=== PATIENT | female | born 1975 | race American Indian/Alaskan Native ===

== ENCOUNTER 2017-02-28 12:19 | Observation (INO) ==
[2017-02-28] MEDS ORDERED: 0.9 % SODIUM CHLORIDE 1,000 ML IV ONE ×2 (12:33→16:01)
[2017-02-28] MEDS ORDERED: PROCHLORPERAZINE 10 MG/2 ML VIAL IV ONE (12:34)
--- NOTE | 2017-02-28 12:37 | Emergency Department Note ---
[id number]: nausea, stomach pain Time Seen by Provider: 02/28/17 12:27 Mode of arrival: ambulatory - History of Present Illness HPI Narrative: 41 year old female presents with nausea, vomiting and abdominal pain. She has not been able to keep anything down since last night. She is type 2 diabetic and her blood sugars are running "high" on her monitor at home. She has taken 45 units of Lantus today and 14 units of regular insulin. She has had pancreatitis once. No urinary symptoms. She has not been sick. She was feeling well until yesterday. The only blood sugar she could get was 500 - Related Data Home Medications Medication Instructions Recorded Confirmed Cyclobenzaprine HCl 2 mg PO BID 02/08/17 02/08/17 Gabapentin 600 mg PO QIDP 02/08/17 02/08/17 Insulin Aspart [Novolog] See Protocol SQ ACHS 02/08/17 02/08/17 Insulin Glargine,Hum.rec.anlog 45 unit SQ BID 02/08/17 02/08/17 [Lantus Solostar] traMADol [Ultram] 50 mg PO Q6HP PRN 02/08/17 02/08/17 Allergies Allergy/AdvReac Type Severity Reaction Status Date / Time ketorolac [From Toradol] AdvReac Intermediate Vomiting Verified 02/08/17 11:08 metoclopramide [From Reglan] AdvReac Intermediate Shakiness Verified 02/08/17 11 :08 morphine AdvReac Intermediate Headache Verified 02/08/17 11:08 NSAIDS (Non-Steroidal AdvReac Intermediate Vomiting Verified 02/08/17 11:08 Anti-Inflamma promethazine [From Phenergan] AdvReac Intermediate Shakiness Verified 02/08/17 11:08 Review of Systems All systems ED: reviewed and negative except as stated. Past Medical History - Past Medical History Medical history: Reports: diabetes, other (History of wounds, flores, injuries, migraines. MRSA) Surgical history ED: Reports: non-contributory, hysterectomy Psychiatric history: Reports: depression, prior suicide attempt HAND II TUBE BENDER history: Reports: non-contributory Family history: Reports: non-contributory - Social History smoking status: Never smoker Alcohol use: Reports: Unknown Physical Exam - General Limitations: no limitations General appearance: alert, in no apparent distress - Head Head exam: atraumatic - Eye Eye exam: Present: normal appearance. Absent: conjunctival injection - Neck Neck exam: Present: normal inspection, full ROM. Absent: tenderness, lymphadenopathy - Chest Chest inspection: Present: normal inspection, symmetric chest wall rise - Respiratory Respiratory exam: Present: normal lung sounds bilaterally - Cardiovascular Cardiovascular exam: Present: tachycardia, normal heart sounds - Abdominal Exam Abdominal exam: Present: soft, tenderness, guarding, normal bowel sounds. Absent: psoas sign, heel tap sign Abdominal tenderness: Present: RUQ, LUQ, epigastrium - Extremities Exam Extremities exam: Present: normal inspection, full ROM - Neurological Exam Neurological exam: Present: alert, oriented X3 - Psychiatric Psychiatric exam: Present: normal affect, normal mood - Skin Skin exam: Present: warm, dry, intact Course Course Narrative: Urine dip shows positive Nitrates and blood - Reevaluation(s) Reevaluation #1: Started on IV insulin drip. Dr. Clemente and Tammy consulted on this patient. She will be admitted Vital Signs Temperature 97.3 F L 02/28/17 12:20 Respiratory Rate 16 02/28/17 12:20 Blood Pressure 139/86 02/28/17 12:20 Pulse Oximetry (%) 100 02/28/17 12:20 Temperature 97.3 F L 02/28/17 12:20 Pulse Rate 100 H 02/28/17 15:24 Respiratory Rate 14 02/28/17 15:24 Blood Pressure 134/99 02/28/17 15:01 Pulse Oximetry (%) 99 02/28/17 15:24 Nausea/Vomiting/Diarrhea - Lab Data Lab results reviewed: Yes I reviewed the patient's lab results. Result diagrams: 02/28/17 12:46 02/28/17 12:46 Lab Results 02/28/17 02/28/17 02/28/17 Range/Units 12:46 12:46 12:46 WBC 10.9 (4.5-11.0) K/mcL RBC 4.61 (4.00-5.20) M/mcL Hgb 14.2 (12.0-15.0) g/dL Hct 42.0 (36.0-48.0) % POC Hct 44.0 (36.0-48.0) % MCV 91.1 (80.0-100.0) fL MCH 30.8 (26.0-34.0) pg MCHC 33.9 (31.0-36.0) g/dL RDW 12.6 (11.5-14.5) % Plt Count 333 (140-440) K/mcL MPV 7.1 L (7.4-10.4) fL Total Counted 100 Seg Neutrophils % 68 (38-78) % Band Neutrophils % Not Reportable Lymphocytes % 28 (15-49) % Monocytes % (Manual) 2 (1-12) % Eosinophils % (Manual) 2 (0-7) % Platelet Estimate Normal (NORMAL) RBC Morphology Normal (NORMAL) VBG Lactic Acid 2.4 H (0.5-2.2) mmol/L POC Sodium 131 L (133-145) mmol/L Sodium 128 L (133-145) mmol/L POC Potassium 4.1 (3.3-5.1) mmol/L Potassium 4.3 (3.3-5.1) mmol/L POC Chloride 94 L (96-108) mmol/L Chloride 89 L (96-108) mmol/L Carbon Dioxide 21 L (22-30) mmol/L POC Total CO2 21 L (22-30) mmol/L Anion Gap 18.0 H (8-16) POC BUN 13 (6-20) mg/dl BUN 13 (6-20) mg/dl Creatinine 1.0 (0.6-1.1) mg/dl POC Creatinine 0.7 (0.6-1.1) mg/dl GFR Calculation 70 Glucose 795 H* (70-105) mg/dL POC Glucose > 700 H* (70-105) mg/dL Hemoglobin A1c (4.0-6.0) % HGB Estim Average Glucose mg/dL Calcium 9.7 (8.6-10.4) mg/dl POC WB Ioniz Calcium 1.08 L (1.16-1.32) mmol/L Total Bilirubin 0.2 (0.0-1.0) mg/dL AST 16 (0-37) U/l ALT 23 (0-40) U/l Alkaline Phosphatase 245 H (39-117) U/L Total Protein 8.5 H (5.9-8.4) gm/dL Albumin 4.4 (3.2-5.2) gm/dL Globulin 4.1 H (2.2-3.7) gm/dL Albumin/Globulin Ratio 1.1 (1.0-2.3) Amylase 98 (28-100) U/L Lipase 194 H (7-60) U/L Beta-Hydroxybutyrate (< 0.27) mmol/L 02/28/17 02/28/17 Range/Units 12:46 12:46 WBC (4.5-11.0) K/mcL RBC (4.00-5.20) M/mcL Hgb (12.0-15.0) g/dL Hct (36.0-48.0) % POC Hct (36.0-48.0) % MCV (80.0-100.0) fL MCH (26.0-34.0) pg MCHC (31.0-36.0) g/dL RDW (11.5-14.5) % Plt Count (140-440) K/mcL MPV (7.4-10.4) fL Total Counted Seg Neutrophils % (38-78) % Band Neutrophils % Lymphocytes % (15-49) % Monocytes % (Manual) (1-12) % Eosinophils % (Manual) (0-7) % Platelet Estimate (NORMAL) RBC Morphology (NORMAL) VBG Lactic Acid (0.5-2.2) mmol/L POC Sodium (133-145) mmol/L Sodium (133-145) mmol/L POC Potassium (3.3-5.1) mmol/L Potassium (3.3-5.1) mmol/L POC Chloride (96-108) mmol/L Chloride (96-108) mmol/L Carbon Dioxide (22-30) mmol/L POC Total CO2 (22-30) mmol/L Anion Gap (8-16) POC BUN (6-20) mg/dl BUN (6-20) mg/dl Creatinine (0.6-1.1) mg/dl POC Creatinine (0.6-1.1) mg/dl GFR Calculation Glucose (70-105) mg/dL POC Glucose (70-105) mg/dL Hemoglobin A1c 11.4 H (4.0-6.0) % HGB Estim Average Glucose 280 mg/dL Calcium (8.6-10.4) mg/dl POC WB Ioniz Calcium (1.16-1.32) mmol/L Total Bilirubin (0.0-1.0) mg/dL AST (0-37) U/l ALT (0-40) U/l Alkaline Phosphatase (39-117) U/L Total Protein (5.9-8.4) gm/dL Albumin (3.2-5.2) gm/dL Globulin (2.2-3.7) gm/dL Albumin/Globulin Ratio (1.0-2.3) Amylase (28-100) U/L Lipase (7-60) U/L Beta-Hydroxybutyrate 0.19 (< 0.27) mmol/L - Radiology Data Radiology results reviewed: Yes I reviewed the patient's radiology results. No pancreatitis. Bladder distention Disposition Clinical Impression: Hyperosmolar non-ketotic state in patient with type 2 diabetes mellitus Disposition: Xfer As Inpt ([facility]) Condition: Fair
[2017-02-28] MEDS ORDERED: HYDROmorphone 2 MG/ML SYRINGE IV SCH ×2 (12:45→14:15)
[2017-02-28 13:16] LABS: Mean Cell Volume 91.1 fL (80.0-100.0); Mean Corpuscular HGB Conc 33.9 g/dL (31.0-36.0); Mean Corpuscular Hemoglobin 30.8 pg (26.0-34.0); Platelet Count 333 K/mcL (140-440); RBC 4.61 M/mcL (4.00-5.20); Red Cell Distribution Width 12.6 % (11.5-14.5)
[2017-02-28 13:43] LABS: ALT/SGPT 23 U/l (0-40); Albumin 4.4 gm/dL (3.2-5.2); Albumin/Globulin Ratio 1.1 (1.0-2.3); Alkaline Phosphatase 245 U/L (39-117); Amylase 98 U/L (28-100); Blood Urea Nitrogen 13 mg/dl (6-20); Lipase 194 U/L (7-60)
[2017-02-28] MEDS ORDERED: INSULIN REGULAR, HUMAN 50 UNIT in 0.9 % SODIUM CHLORIDE 99.5 ML IV SCH ×2 (14:15→16:46)
[2017-02-28] MEDS ORDERED: INSULIN REGULAR, HUMAN 1 UNIT/0.01 ML UNIT IV ONE (14:18)
[2017-02-28 14:22] LABS: Eosinophils % (Manual) 2 % (0-7); Lymphocytes % 28 % (15-49); Monocytes % (Manual) 2 % (1-12); Platelet Estimate NORMAL (NORMAL); RBC Morphology NORMAL (NORMAL); Segmented Neutrophils % 68 % (38-78)
--- NOTE | 2017-02-28 14:38 | XRay Report ---
CLINICAL INFORMATION: Nausea and vomiting. Elevated lactic acid TECHNIQUE: PA and lateral chest x-ray COMPARISON: 03/09/2013 and 01/30/2009 FINDINGS: Lungs are negative. No focal pulmonary parenchymal infiltrate or mass. Heart size and vascularity are normal. No pulmonary edema or pulmonary congestion. Viviana and mediastinum are negative. No pleural fluid. Normal thoracic spine. IMPRESSION: Negative PA and lateral chest x-ray Interpreted and Authenticated by: Jeremy Figueredo 02/28/17
[2017-02-28] MEDS ORDERED: ONDANSETRON 4 MG/2 ML VIAL IV ONE (14:39)
--- NOTE | 2017-02-28 14:59 | Cat Scan Report ---
CLINICAL INFORMATION: Epigastric pain. Elevated liver function tests. COMPARISON: Previous CT scan dated 05/11/2016 TECHNIQUE: Axial images were obtained through the abdomen and pelvis. Sagittally and coronally reformatted images. FINDINGS: Lung bases are negative. No pleural fluid. No pericardial fluid. Liver is negative. No focal intrahepatic abnormalities. Intravenous contrast material was not administered. Liver contour is smooth. No nodularity. No ascitic fluid. There are surgical clips in the gallbladder fossa. No dilated bile ducts. Negative pancreas. No pancreatic mass. No peripancreatic abnormality. Negative spleen. No splenomegaly. Previous examination demonstrated a right hydronephrosis. No wall significant hydronephrosis on present examination. No renal calculi. No detectable mass. Urinary bladder is distended. Estimated volume is approximately 900 mL. No detectable mass. No calculus. Uterus is not identified. No adnexal mass. No free pelvic fluid. No localized fluid collections. No pneumoperitoneum. No biliary or portal venous gas. Colon is prominent suggesting constipation. No diverticulitis. No appendicitis. No detectable colonic mass. No mechanical small bowel obstruction. No mesenteric or retroperitoneal lymphadenopathy. Lumbar spine is negative. Sacrum and pelvis are negative. IMPRESSION: 1. No significant hydronephrosis. Appearance of the right kidney is improved since 05/11/2016 2. Distended urinary bladder as above. Interpreted and Authenticated by: Jeremy Figueredo 02/28/17
[2017-02-28 15:35] LABS: Hemoglobin A1C 11.4 % HGB (4.0-6.0)
[2017-02-28] MEDS ORDERED: cefTRIAXone 2 GM in DEXTROSE 5% IN WATER 50 ML IV ONE (15:42)
[2017-02-28 16:38] LABS: Appearance,Urine CLEAR; Bacteria,Urine 0 /hpf (0); Bilirubin,Urine NEG (NEG); Color,Urine YELLOW; Glucose,Urine (UA) >=500 mg/dL (NEG); Leukocyte Esterase,Urine NEG /uL (NEG); Mucus,Urine FEW /hpf (0); Nitrate,Urine POS (NEG); Protein,Urine NEG (NEG); Specific Gravity,Urine 1.027 (1.000-1.035); Urine Blood NEG mg/dL (<0.03); Urine RBC 0 /hpf (0-1); Urine Squamous Epithelial Cell 0 /hpf (0-4); Urine WBC 4 /hpf (0-4); Urobilinogen,Urine NEG (NEG)
[2017-02-28] MEDS ORDERED: guaiFENesin/CODEINE 10 ML UDC PO PRN (16:46)
[2017-02-28] MEDS ORDERED: ACETAMINOPHEN 325 MG TABLET PO PRN (16:46)
[2017-02-28] MEDS ORDERED: ACETAMINOPHEN 1,000 MG/100 ML BOTTLE IV PRN (16:46)
[2017-02-28] MEDS ORDERED: ONDANSETRON 4 MG/2 ML VIAL IV PRN (16:46)
[2017-02-28] MEDS: 0.9 % SODIUM CHLORIDE 1,000 ML IV SCH (16:57)
[2017-02-28] MEDS ORDERED: PANTOPRAZOLE 40 MG VIAL IV ONE (17:07)
[2017-02-28 17:16] LABS: C-Reactive Protein 1.1 mg/dl (0.0-0.8)
[2017-02-28] MEDS: THIAMINE 100 MG TABLET PO SCH (19:14)
[2017-02-28] MEDS: 0.9 % SODIUM CHLORIDE 10 ML SYRINGE IV SCH ×2 (19:16→20:55)
[2017-02-28] MEDS: HYDROmorphone 2 MG/ML SYRINGE IV PRN ×2 (19:16→23:10)
--- NOTE | 2017-02-28 19:38 | History and Physical Report ---
DATE OF ADMISSION: 02/28/2017 DATE OF ADMISSION: 02/28/2017. REASON FOR ADMISSION: Nausea, vomiting, and abdominal pain. PRIMARY CARE PHYSICIAN: Luz Elena Dejesus DO HISTORY OF CHIEF COMPLAINT: Jeanette is a 41-year-old with known history of type 2 diabetes with extremely poor control with last A1c 15. She comes to [facility] Room with persistent nausea and vomiting that started around 8:00 in the evening along with associated diarrhea. The patient has been having dry heaves after initial volume emesis composed of mostly food. The patient denies recurrent similar events. She has not been able to keep anything down since last night and subsequently came to [facility] Room. Initial workup was significant for blood sugars over 700. The patient will be started on insulin drip along with crystalloids, antiemetics. White count was 11,600. Subsequently, Hospitalist Service was consulted. At the time of examination, the patient is accompanied with her boyfriend, Ariel. She was able to provide most of the history. She appears nondistressed. She denies recent precedents including sick contacts, community feast, changes in medications or recent upper respiratory symptoms. She also denies dysuria. She endorses to couple of loose stools a day without any noticeable blood or cramps. REVIEW OF SYSTEMS: Ten-point review of system was performed and negative except the ones discussed above. PAST MEDICAL HISTORY: 1. History of diabetic neuropathy. 2. Diabetes mellitus type 2. 3. Degenerative joint disease. CURRENT MEDICATIONS: 1. Tramadol 50 q. 6. 2. Lantus 45 b.i.d. 3. Aspart sliding scale. 4. Gabapentin 600 q.i.d. 5. Cyclobenzaprine 2 mg b.i.d. ALLERGIES: 1. KETOROLAC. 2. REGLAN. 3. NSAIDS. 4. PROMETHAZINE. FAMILY HISTORY: Significant for mother with diabetes and coronary artery disease. Father significant for alcoholism, of complications. SOCIAL HISTORY: The patient until recently used to live in [place] with two daughters. She has a boyfriend, Ariel. She smokes daily but no history of alcoholism or illicit drug use. 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 PHYSICAL EXAMINATION: GENERAL: The patient is alert and oriented. She denies any active distress. BMI 24.3. Height 5 feet 8 inches. VITAL SIGNS: Blood pressure 148/112, respiratory rate 20, temperature 97.3, pulse 104, sats 99 percent on room air. HEENT: Pupils symmetric. Oral cavity is dry. No ear or nose discharge. Head is normocephalic and atraumatic. NECK: No lymphadenopathy. HEART: S1, S2, irregular rhythm, no murmur, tachycardia. CHEST: Clear to auscultation bilaterally, lateral and posterior chest lung [place]. ABDOMEN: Soft except for mild tenderness in epigastric area on deep palpation. No organomegaly. LOWER EXTREMITIES: No cyanosis or clubbing. No joint swelling. Neuropathic changes with loss of crude touch but no lymphedema. SKIN: Otherwise, no suspicious lesions. PSYCHIATRIC: Alert and cooperative. Mild anxiety. NEUROLOGIC: Nonfocal, moving all 4 extremities. Neuropathic changes in glove and stocking fashion. LABORATORY AND IMAGING: White count 10.9, hemoglobin 14.2, platelets 333. Lactic acid 2.4, sodium 131, potassium 4.1, creatinine 1, BUN 13, glucose 795. Last A1c 15. Current A1c 11.4, CRP pending. Alkaline phosphatase 245, lipase 194, __ 0.19. UA positive for nitrites. No bacteria. ASSESSMENT AND PLAN: A 41-year-old admitted with nausea, vomiting, abdominal pain and likely acute gastroenteritis, unclear etiology. 1. Acute gastroenteritis. Continue IV Protonix twice daily along with bowel rest, antiemetics, analgesics. 2. Hyperglycemic hyperosmolar nonketotic state. Continue insulin drip along with crystalloids. Poorly controlled diabetes as an outpatient reflective as evident from an A1c of 11.4. The patient does not have a primary care physician at this time and has moved from [place] to [place]. Patient is in the process of establishing care with primary care physician. At this time, we will start patient on diabetic education along with carbohydrate diet once blood sugars improve. 3. Other prior medical issues including history of neuropathy. Continue gabapentin. 4. Chronic pain. Continued as-needed opioids. PLAN FOR TODAY: 1. Admit as observation. 2. Insulin drip. 3. IV PPI. 4. Pain management. 5. Preexisting medical condition management as above. 6. Diabetic education. AA:ele Job ID: [id number] Doc ID: [id number] Raman Reilly MD
[2017-02-28 20:08] LABS: Appearance,Urine HAZY; Bacteria,Urine 0 /hpf (0); Bilirubin,Urine NEG (NEG); Color,Urine YELLOW; Glucose,Urine (UA) >=500 mg/dL (NEG); Leukocyte Esterase,Urine 75 /uL (NEG); Mucus,Urine FEW /hpf (0); Nitrate,Urine POS (NEG); Protein,Urine NEG (NEG); Specific Gravity,Urine 1.029 (1.000-1.035); Urine Blood NEG mg/dL (<0.03); Urine RBC 3 /hpf (0-1); Urine Squamous Epithelial Cell < 1 /hpf (0-4); Urine WBC 162 /hpf (0-4); Urobilinogen,Urine NEG (NEG)
[2017-02-28] MEDS: DOCUSATE SODIUM 100 MG CAPSULE PO SCH (20:51)
[2017-02-28] MEDS ORDERED: SENNOSIDES/DOCUSATE SODIUM 1 TAB TABLET PO SCH (21:00)
[2017-02-28] MEDS ORDERED: traZODone HCL 50 MG TABLET PO PRN (21:00)
[2017-02-28] MEDS: HEPARIN 5,000 UNIT/ML VIAL SQ SCH (21:07)
[2017-02-28] MEDS: CYANOCOBALAMIN (VITAMIN B-12) 500 MCG TABLET PO SCH (21:08)
[2017-03-01] MEDS: HYDROmorphone 2 MG/ML SYRINGE IV PRN ×3 (02:52→10:29)
[2017-03-01] MEDS: 0.9 % SODIUM CHLORIDE 1,000 ML IV SCH (05:35)
[2017-03-01 06:21] LABS: Mean Cell Volume 91.2 fL (80.0-100.0); Mean Corpuscular HGB Conc 34.6 g/dL (31.0-36.0); Mean Corpuscular Hemoglobin 31.6 pg (26.0-34.0); Platelet Count 266 K/mcL (140-440); RBC 3.83 M/mcL (4.00-5.20); Red Cell Distribution Width 12.7 % (11.5-14.5)
[2017-03-01 06:52] LABS: ALT/SGPT 17 U/l (0-40); Albumin 3.1 gm/dL (3.2-5.2); Albumin/Globulin Ratio 1.1 (1.0-2.3); Alkaline Phosphatase 110 U/L (39-117); Bilirubin,Direct < 0.2 mg/dL (0.0-0.3); Blood Urea Nitrogen 11 mg/dl (6-20); Gamma Glutamyl Transpeptidase 48 U/L (5-36); Magnesium 1.7 mg/dL (1.6-2.5); Uric Acid 4.5 mg/dL (2.5-8.0)
[2017-03-01] MEDS: 0.9 % SODIUM CHLORIDE 10 ML SYRINGE IV SCH (06:59)
[2017-03-01] MEDS: HEPARIN 5,000 UNIT/ML VIAL SQ SCH (07:14)
[2017-03-01] MEDS: DOCUSATE SODIUM 100 MG CAPSULE PO SCH (07:14)
[2017-03-01] MEDS: CYANOCOBALAMIN (VITAMIN B-12) 500 MCG TABLET PO SCH (07:15)
[2017-03-01] MEDS: THIAMINE 100 MG TABLET PO SCH (07:26)
[2017-03-01] MEDS ORDERED: PANTOPRAZOLE 40 MG VIAL IV SCH (07:30)
[2017-03-01 08:03] LABS: Band Neutrophils % 1 % (0-10); Eosinophils % (Manual) 7 % (0-7); Lymphocytes % 44 % (15-49); Monocytes % (Manual) 1 % (1-12); Platelet Estimate NORMAL (NORMAL); RBC Morphology NORMAL (NORMAL); Segmented Neutrophils % 46 % (38-78)
[2017-03-01] MEDS ORDERED: THIAMINE 100 MG in 0.9 % SODIUM CHLORIDE 50 ML IV SCH (09:00)
[2017-03-01] MEDS ORDERED: FOLIC ACID 1 MG TABLET PO SCH (09:00)
[2017-03-01] MEDS ORDERED: PNEUMOCOCCAL 23-VAL P-SAC VAC 0.5 ML VIAL IM ONE (09:00)
[2017-03-01] MEDS ORDERED: MULTIVIT,THER IRON,CA,FA & MIN 1 TABLET PO SCH (09:00)
[2017-03-01] MEDS ORDERED: INSULIN GLARGINE, HUMAN 1 UNIT/0.01 ML SQ SCH (10:30)
--- NOTE | 2017-03-01 11:20 | Internal Med Progress Note ---
Medical - PN: Subj Patient information: Note initiated : 03/01/17 at 11:18 am Service Date, if different from initiated Date: [] Patient: eJanette Anguiano a 41 y/o F admitted on 02/28/17 for nausea, stomach pain. Chief Complaint: [] Interval history: 02/28- patient admitted with acute gastroenteritis nausea vomiting and hyperosmolar nonketotic state with sugars over 700. Started on insulin drip. And admitted to telemetry. Continue aggressive crystalloids, electrolyte monitoring and replacement. Continue bowel rest. Poor outpatient diabetes controlled with last A1c 15 and current A1c 11.9. 03/01- patient doing remarkably better. Off insulin drip. on consistent carbohydrate diet. Feels a lot better. Complains of headache. Patient has had similar headaches in the past responding to opioids and caffeine. Frontal nature. Otherwise no overnight fever chills CP/SOB or nausea. Diarrhea resolved. Possible discharge in 24 hours if clinically continues to improve. - Constitutional Vitals: Vital Signs Temp Pulse Resp BP Pulse Ox 98.0 F 94 H 16 132/80 96 03/01/17 07:43 03/01/17 04:00 03/01/17 07:43 03/01/17 07:43 03/01/17 07:57 Period Temp Pulse Resp BP Sys/Santiago Pulse Ox Last 24 Hr 96.8 F-98.1 F 94-96 16-22 121-154/77-98 96-100 Intake and Output 02/28/17 03/01/17 03/01/17 21:59 05:59 13:59 Intake Total 1203 / 2203 1645 / 1645 9 9 Output Total 1000 / 1000 Balance 1203 / 2203 645 / 645 9 Weight 147 lb 8 oz Intake & Output: Intake & Output 02/28/17 03/01/17 03/01/17 21:59 05:59 13:59 Intake Total 1203 / 2203 1645 / 1645 9 9 Output Total 1000 / 1000 Balance 1203 / 2203 645 / 645 9 / 9 Weight 147 lb 8 oz Intake: IV 1083 / 1083 1045 / 1045 9 / 9 Sodium Chloride 0.9% 1, 1000 / 1000 1000 / 1000 000 ml @ 100 mls/hr IV . Q10H CHRISTINA Rx#:[id number] HumuLIN R 50 UNIT In 33 / 33 45 / 45 9 / 9 Sodium Chloride 0.9% 99.5 ml @ 7.2 UNIT/HR 14.4 mls/hr IV DUR [facility] Rx#: [id number] Rocephin 2 gm In Dextrose 50 / 50 5% in Water 50 ml @ 100 mls/hr IV ONCE ONE Rx#: [id number] Oral 120 / 120 600 / 600 Output: Urine Catheter Amount 1000 / 1000 Other: Meal Dinner Nourishment/Supplement Percent of Meal Consumed 75% 100% Feeding Ability Assist with Tray Set Up Independent General appearance: cooperative, no acute distress Exam: alert oriented no anxiety Nonlabored breathing Medical - PN: Obj Da - Labs CBC & Chem 7: 03/01/17 04:30 03/01/17 04:30 Labs: Abnormal Lab Results 03/01/17 03/01/17 02/28/17 04:30 04:30 19:40 RBC 3.83 L Hct 34.9 L Carbon Dioxide 20 L Glucose 193 H Calcium 8.1 L GGT 48 H Albumin 3.1 L Triglycerides 351 H Urine Glucose (UA) >=500 A Urine Ketones 5/tr A Urine Nitrate Pos A Ur Leukocyte Esterase 75 A Urine RBC 3 H Urine WBC 162 H Meds: Medications Acetaminophen (Tylenol) 650 mg PO Q4-6HP PRN PRN Reason: PAIN/FEVER > 101 Cyanocobalamin (Vitamin B-12) 1,000 mcg PO BID [facility] Stop: 03/05/17 09:01 Last Admin: 03/01/17 07:15 Dose: 1,000 mcg Diagnostic Test (Pha) (Accu-Chek) 1 each FS ACHS [facility] Last Admin: 03/01/17 11:13 Dose: 1 each Docusate Sodium (Colace) 100 mg PO BID [facility] Last Admin: 03/01/17 07:14 Dose: 100 mg Folic Acid (Folic Acid) 1 mg PO DAILY [facility] Last Admin: 03/01/17 07:15 Dose: 1 mg Guaifenesin/Codeine Phosphate (Robitussin Ac) 10 ml PO Q4HP PRN PRN Reason: Cough Last Admin: 03/01/17 07:14 Dose: 10 ml Heparin Sodium (Porcine) (Heparin) 5,000 unit SQ Q12 [facility] Last Admin: 03/01/17 07:14 Dose: 5,000 unit Hydromorphone HCl (Dilaudid) 0 mg IV Q4HP PRN PRN Reason: Pain Last Admin: 03/01/17 10:29 Dose: 0.5 mg Insulin Human Regular 50 unit/ (Sodium Chloride) 100 mls @ 14.4 mls/hr IV DUR CHRISTINA; 7.2 UNIT/HR PRN Reason: Protocol Last Titration: 03/01/17 06:00 Dose: 3.5 unit/hr, 7 mls/hr Sodium Chloride (Sodium Chloride 0.9%) 1,000 mls @ 100 mls/hr IV .Q10H [facility] Last Admin: 03/01/17 05:35 Dose: 100 mls/hr Acetaminophen (Ofirmev) 1,000 mg in 100 mls @ 200 mls/hr IV Q6HP PRN PRN Reason: PAIN/FEVER > 101 Insulin Glargine (Lantus) 45 unit SQ BID CHRISTINA Last Admin: 03/01/17 11:14 Dose: 45 unit Insulin Human Lispro (Humalog) 0 unit SQ ACHS CHRISTINA PRN Reason: Protocol Last Admin: 03/01/17 11:15 Dose: 12 unit Iron Carb/Multivit/[place]/Folic Acid (Multivitamin W/Minerals) 1 tab PO DAILY [facility] Last Admin: 03/01/17 07:15 Dose: 1 tab Ondansetron HCl (Zofran) 4 mg IV Q4-6HP PRN PRN Reason: Nausea And Vomiting Last Admin: 03/01/17 10:16 Dose: 4 mg Pantoprazole Sodium (Protonix) 40 mg IV BIDAC [facility] Last Admin: 03/01/17 06:58 Dose: 40 mg Senna/Docusate Sodium (Senna Plus Tablet) 1 tab PO HS [facility] Last Admin: 02/28/17 20:51 Dose: Not Given Sodium Chloride (Saline Flush) 10 ml IV Q8 [facility] Last Admin: 03/01/17 06:59 Dose: Not Given Thiamine HCl (Vitamin B1) 100 mg PO DAILY [facility] Stop: 03/02/17 09:01 Last Admin: 03/01/17 07:26 Dose: 100 mg Trazodone HCl (Desyrel) 50 mg PO HSP PRN PRN Reason: Insomnia Medical - PN: A/P - Time Spent With Patient Total time spent is greater than 50% in coordination of care (as documented) at patient's floor/unit and/or counseling patient: 15 - 24 minutes (1) Hyperosmolar non-ketotic state in patient with type 2 diabetes mellitus Status: Acute Assessment and plan: * hyperosmolar nonketotic state with blood sugar over 700. Responded well to insulin drip. Transition to subcutaneous insulin. On diabetic diet aggressive diabetes education given poor outpatient control A1c around 12. * Diabetic gastroparesis with nausea vomiting- clinically improved. * Discharge neuropathy-ontinue gabapentin Plan * Diabetic education and basal prandial insulin * Crystalloids and antiemetics * Possible discharge in 24 hours Current Visit: Yes Medical - PN: Qual - Stroke Symptom Onset Unknown: No - VTE Deep Vein Thrombosis/Pulmonary Embolism Present on Admission: No
[2017-03-01] MEDS ORDERED: INSULIN LISPRO 1 UNIT/0.01 ML UNIT SQ SCH (11:30)
--- NOTE | 2017-03-01 12:00 | Discharge Summary ---
Medical - DS: Prov Patient information: Note initiated : 03/01/17 at 11:58 am Service Date, if different from initiated Date: [] Patient: Jeanette Anguiano 41 y/o F admitted on 02/28/17 for Nausea, Vomiting, Abdominal Pain. Chief Complaint: [] Date of admission: 02/28/17 16:35 Discharge date: 03/01/17 Primary care physician: [f_Reg Prim Care Provider] Medical - DS: Meds - Discharge Medications Active and Home Medications: Home Medications Cyclobenzaprine HCl 2 mg PO BID 02/08/17 [History Confirmed 03/01/17 Last Taken 02/28/17 09:00] Gabapentin 600 mg PO QIDP 02/08/17 [History Confirmed 03/01/17 Last Taken 09:00] Insulin Aspart [Novolog] See Protocol SQ ACHS 02/08/17 [History Confirmed Last Taken 02/28/17 07:00] Insulin Glargine,Hum.rec.anlog [Lantus Solostar] 45 unit SQ BID 02/08/17 [ History Confirmed 03/01/17 Last Taken 02/28/17 09:00] traMADol [Ultram] 50 mg PO Q6HP PRN 02/08/17 [History Confirmed 03/01/17 Last Taken Unknown] Medical - DS: Hosp Hospital course: DISCHARGE DIAGNOSIS * hyperosmolar nonketotic state with blood sugar over 700. Responded well to insulin drip. Transition to subcutaneous insulin. On diabetic diet aggressive diabetes education given poor outpatient control A1c around 12. * Diabetic gastroparesis with nausea vomiting- clinically improved. * diabetic neuropathy-ontinue gabapentin 02/28- patient admitted with acute gastroenteritis nausea vomiting and hyperosmolar nonketotic state with sugars over 700. Started on insulin drip. And admitted to telemetry. Continue aggressive crystalloids, electrolyte monitoring and replacement. Continue bowel rest. Poor outpatient diabetes controlled with last A1c 15 and current A1c 11.9. 03/01- patient doing remarkably better. Off insulin drip. on consistent carbohydrate diet. Feels a lot better. Complains of headache. Patient has had similar headaches in the past responding to opioids and caffeine. Frontal nature. Otherwise no overnight fever chills CP/SOB or nausea. Diarrhea resolved. Possible discharge in 24 hours if clinically continues to improve. ADDENDUM- atient requesting discharge. Feels at baseline Discharge diagnosis: . - Time Spent with Patient Total time spent providing and/or coordinating discharge services: Greater than 30 minutes Medical - DS: Exam - Constitutional Vitals: Vital Signs Temp Pulse Resp BP BP Pulse Ox 03/01/17 07:57 96 03/01/17 07:43 98.0 F 16 132/80 96 03/01/17 04:00 98.1 F 94 H 18 121/77 96 03/01/17 00:00 97.8 F 22 154/81 100 02/28/17 20:00 96 H 20 100 02/28/17 19:11 96.8 F L 20 145/92 100 02/28/17 16:46 97.0 F L 20 142/98 96 Intake and Output 02/28/17 03/01/17 03/01/17 21:59 05:59 13:59 Intake Total 1203 / 2203 1645 / 1645 9 / 9 Output Total 1000 / 1000 Balance 1203 / 2203 645 / 645 9 / 9 Intake: IV 1083 / 1083 1045 / 1045 9 / 9 Sodium Chloride 0.9% 1, 1000 / 1000 1000 / 1000 000 ml @ 100 mls/hr IV . Q10H CHRISTINA Rx#:[id number] HumuLIN R 50 UNIT In 33 / 33 45 / 45 9 / 9 Sodium Chloride 0.9% 99.5 ml @ 7.2 UNIT/HR 14.4 mls/hr IV DUR CHRISTINA Rx#: [id number] Rocephin 2 gm In Dextrose 50 / 50 5% in Water 50 ml @ 100 mls/hr IV ONCE ONE Rx#: [id number] Oral 120 / 120 600 / 600 Output: Urine Catheter Amount 1000 / 1000 Other: Meal Dinner Nourishment/Supplement Percent of Meal Consumed 75% 100% Feeding Ability Assist with Tray Set Up Independent Weight 147 lb 8 oz Medical - DS: Data Labs on day of discharge: Labs from last 24 hours 03/01/17 03/01/17 02/28/17 04:30 04:30 19:40 WBC 9.7 RBC 3.83 L Hgb 12.1 Hct 34.9 L MCV 91.2 MCH 31.6 MCHC 34.6 RDW 12.7 Plt Count 266 MPV 7.4 Total Counted 100 Seg Neutrophils % 46 Band Neutrophils % 1 Lymphocytes % 44 Monocytes % (Manual) 1 Eosinophils % (Manual) 7 Reactive Lymphocytes 1 Platelet Estimate Normal RBC Morphology Normal Sodium 138 Potassium 3.6 Chloride 104 Carbon Dioxide 20 L Anion Gap 14.0 BUN 11 Creatinine 0.8 GFR Calculation 92 Glucose 193 H Uric Acid 4.5 Calcium 8.1 L Phosphorus 2.9 Magnesium 1.7 Total Bilirubin < 0.2 Direct Bilirubin < 0.2 GGT 48 H AST 21 ALT 17 Alkaline Phosphatase 110 Lactate Dehydrogenase 177 Total Protein 5.9 Albumin 3.1 L Globulin 2.8 Albumin/Globulin Ratio 1.1 Triglycerides 351 H Procalcitonin Urine Color Yellow Urine Appearance Hazy Urine pH 6.0 Ur Specific Gary 1.029 Urine Protein Neg Urine Glucose (UA) >=500 A Urine Ketones 5/tr A Urine Occult Blood Neg Urine Nitrate Pos A Urine Bilirubin Neg Urine Urobilinogen Neg Ur Leukocyte Esterase 75 A Urine RBC 3 H Urine WBC 162 H Ur Squamous Epith Cells < 1 Urine Bacteria 0 Urine Mucus Few 02/28/17 17:09 WBC RBC Hgb Hct MCV MCH MCHC RDW Plt Count MPV Total Counted Seg Neutrophils % Band Neutrophils % Lymphocytes % Monocytes % (Manual) Eosinophils % (Manual) Reactive Lymphocytes Platelet Estimate RBC Morphology Sodium Potassium Chloride Carbon Dioxide Anion Gap BUN Creatinine GFR Calculation Glucose Uric Acid Calcium Phosphorus Magnesium Total Bilirubin Direct Bilirubin GGT AST ALT Alkaline Phosphatase Lactate Dehydrogenase Total Protein Albumin Globulin Albumin/Globulin Ratio Triglycerides Procalcitonin 0.05 Urine Color Urine Appearance Urine pH Ur Specific Gary Urine Protein Urine Glucose (UA) Urine Ketones Urine Occult Blood Urine Nitrate Urine Bilirubin Urine Urobilinogen Ur Leukocyte Esterase Urine RBC Urine WBC Ur Squamous Epith Cells Urine Bacteria Urine Mucus Preliminary micro results at discharge 02/28/17 19:40 Urine Culture - Preliminary Urine - Oakley Escherichia coli Medical - DS: A/P - Patient/Caregiver Discharge Instructions Activity: increase activity as tolerated Diet: Consistent Carbohydrate - Problem Maintenance (1) Hyperosmolar non-ketotic state in patient with type 2 diabetes mellitus Status: Acute - Follow up Plan Disposition: Home, Self-Care Prognosis: Fair Rehab Potential: Fair I certify that the patient requires SNF services: No Overall status at discharge: patient is progressing back to baseline Medical - DS: Qual - VTE Deep Vein Thrombosis/Pulmonary Embolism Present on Admission: No
== END 2017-03-01 13:00 | disposition home or self-care (01) ==
LOC: ED 12:19 → ICU 16:35 → INTOOBSV 16:35 → ICU 16:47
PROVIDERS: ADMIT Internal Medicine; ATTEND Internal Medicine

== ENCOUNTER 2017-06-03 17:07 | Inpatient (IN) ==
[2017-06-03] MEDS ORDERED: ONDANSETRON 4 MG/2 ML VIAL IV ONE ×2 (17:43→20:09)
[2017-06-03] MEDS ORDERED: HYDROmorphone 2 MG/ML SYRINGE IV SCH ×4 (17:45→21:47)
[2017-06-03] MEDS ORDERED: PIPERACILLIN SODIUM/TAZOBACTAM 3.375 GM in DEXTROSE 5% IN WATER 50 ML IV ONE (17:46)
[2017-06-03] MEDS ORDERED: VANCOMYCIN 1 GM VIAL TOPICAL ONE (17:49)
--- NOTE | 2017-06-03 17:57 | Emergency Department Note ---
Extremity Problem HPI <SoteroArabellaAnil - Last Filed: 06/03/17 19:28> - General Source: patient Mode of arrival: ambulatory Limitations: no limitations - History of Present Illness MD Complaint: extremity pain, extremity swelling, other (Recent surgery on her right foot diabetic ulcers.) Onset (ago): day(s) (6 days) Consistency: constant Location: right, other (foot and great toe.) Severity scale (1-10): 9 Quality: burning, aching Radiation: none Improves with: nothing Worsens with: weight bearing, palpation Associated symptoms: Reports: fever Context: recent surgery/procedure <Emiliana Melchor - Last Filed: 06/03/17 19:55> - General Chief complaint: Extremity Problem,Nontraumatic Stated complaint: right foot pain/draining Time Seen by Provider: 06/03/17 17:20 - History of Present Illness HPI Narrative: 41 year old female returns today for the wound on the right foot draining large amounts of yellow, purulent liquid followed by bright red blood. She thinks one of the stitches came off when she removed the bandage. She was in the ER yesterday for the same thing, her WBCs were >16,000 and her blood sugar was over 600. She was on an insulin drip briefly and the blood sugar was in the 200s when she left. Her PCP called in tramadol and oxycodone. The tramadol was filled but not picked up according to [facility] and the oxycodone was not approved by insurance, so was not filled. She is crying in pain and pleading for pain medication. (Emiliana Melchor) - Related Data Home Medications Medication Instructions Recorded Confirmed Cyclobenzaprine HCl 10 mg PO BID 02/08/17 04/20/17 Gabapentin 600 mg PO QIDP 02/08/17 04/20/17 Insulin Aspart [Novolog] See Protocol SQ ACHS 02/08/17 04/20/17 Insulin Glargine,Hum.rec.anlog 45 unit SQ BID 02/08/17 04/20/17 [Lantus Solostar] traMADol [Ultram] 50 mg PO Q6HP PRN 02/08/17 04/20/17 HYDROcodone/APAP 10/325MG [[place] 1 tab PO Q4H PRN 04/20/17 04/20/17 10/325Mg] traZODone HCL [Desyrel] 50 mg PO HS 04/20/17 04/20/17 Previous Rx's Medication Instructions Recorded Ciprofloxacin [Cipro] 500 mg PO BID #14 tablet 04/20/17 HYDROcodone/APAP 5/325MG [[place] 1 tab PO Q4HP PRN #14 tablet 04/20/17 5/325Mg] Ondansetron HCl [Zofran ODT] 4 mg SL Q4-6HP PRN #10 tablet 04/20/17 Ondansetron HCl [Zofran ODT] 4 mg SL Q6H PRN #20 tablet 05/01/17 Allergies Allergy/AdvReac Type Severity Reaction Status Date / Time ketorolac [From Toradol] AdvReac Intermediate Vomiting Verified 05/01/17 18:45 metoclopramide [From Reglan] AdvReac Intermediate Shakiness Verified 05/01/17 18 :45 morphine AdvReac Intermediate Headache Verified 05/01/17 18:45 NSAIDS (Non-Steroidal AdvReac Intermediate Vomiting Verified 05/01/17 18:45 Anti-Inflamma promethazine [From Phenergan] AdvReac Intermediate Shakiness Verified 05/01/17 18:45 Review of Systems Constitutional: Reports: fever, chills Cardiovascular: Denies: chest pain Respiratory: Denies: cough Gastrointestinal: Reports: nausea. Denies: vomiting Genitourinary: Denies: dysuria Musculoskeletal: Reports: other (Severe right foot pain) Integumentary: Reports: other (Swelling and purulent drainage right foot at surgical site.) Neurological: Denies: headache Psychiatric: Reports: anxiety Endocrine: Reports: other (blood sugars out of control) <Emiliana Melchor - Last Filed: 06/03/17 19:55> Past Medical History - Past Medical History Medical history: Reports: diabetes (With ulcers and significant neuropathy), other (History of wounds, flores, injuries, migraines. MRSA, chronic back pain, chronic leg pain, chronic pain, neuropathy, narcotic abuse) Surgical history ED: Reports: non-contributory, hysterectomy, other (Diabetic foot ulcer surgery 05/29/17) Psychiatric history: Reports: depression, prior suicide attempt [employer] history: Reports: non-contributory - Social History Alcohol use: Reports: Unknown Drug use: Reports: unknown <Emiliana Melchor - Last Filed: 06/03/17 19:55> Physical Exam - General Limitations: no limitations General appearance: alert, in distress - Head Head exam: atraumatic, normocephalic - Eye Eye exam: Present: normal appearance - Neck Neck exam: Present: normal inspection - Chest Chest inspection: Present: normal inspection, symmetric chest wall rise - Respiratory Respiratory exam: Present: normal lung sounds bilaterally - Cardiovascular Cardiovascular exam: Present: regular rate, normal rhythm, +S1, +S2. Absent: + S3 - Expanded Lower Extremity Exam Foot/toe exam: Present: tenderness (dorsum and lateral right foot. Sutures intact. Flocculent dorsal lateral foot. Full thickness clean ulceration ventral side right great toe. The nail is gone from the toe. She states it just fell off.), swelling, laceration (Sutures and open wounds look clean, draining scant amount bright red blood.), erythema Neurovascular/Tendon exam: Present: pulse deficit Gait: unable to bear weight - Neurological Exam Neurological exam: Present: alert, oriented X3 - Psychiatric Psychiatric exam: Present: other (crying in pain) <Emiliana Melchor - Last Filed: 06/03/17 19:55> Course <Anil Bey - Last Filed: 06/03/17 19:28> <Emiliana Melchor - Last Filed: 06/03/17 19:55> Course Narrative: The wound was cleansed and redressed with vancomycin powder and non-adhesive dressing. Dr. Bey then came along and wanted to see, so we removed the dressing. so far there has been serosanguinous drainage and no obvious purulent drainage. Dr. Bey and I decided to do a limited CT of the foot to see if there was any progression of the infection to the bone. She was started on Zosyn and Vancomycin for the infection. Pain was relieved for the most part with dilaudid 1 mg IV x 2. I spoke to Dr. Sanchez regarding her admission and he will round on her tomorrow. I spoke to Dr. Samayoa and gave him report. He accepted her admission at 1950. (Emiliana Melchor) - Reevaluation(s) Reevaluation #1: Seen together with the nurse practitioner and agree with the treatment plan. We will attempt to get her hospitalized for cellulitis of the right foot, she certainly has clinical signs of worsening infection even though cultures were negative so far. CT scan is pending at this time. (Anil Bey) Vital Signs Temperature 98.5 F 06/03/17 17:08 Pulse Rate 108 H 06/03/17 17:08 Respiratory Rate 16 06/03/17 17:08 Blood Pressure 137/96 06/03/17 17:08 Pulse Oximetry (%) 99 06/03/17 17:08 Temperature 98.5 F 06/03/17 17:08 Pulse Rate 108 H 06/03/17 17:08 Respiratory Rate 16 06/03/17 17:08 Blood Pressure 137/96 06/03/17 17:08 Pulse Oximetry (%) 99 06/03/17 17:08 Extremity Problem, Nontraumati - Lab Data Result diagrams: 06/03/17 17:45 06/03/17 17:45 <Anil Bey - Last Filed: 06/03/17 19:28> - Lab Data Result diagrams: 06/03/17 17:45 06/03/17 17:45 <Emiliana Melchor - Last Filed: 06/03/17 19:55> - Lab Data Lab Results 06/03/17 06/03/17 06/03/17 Range/Units 17:45 17:45 17:45 WBC 14.2 H (4.5-11.0) K/mcL RBC 4.32 (4.00-5.20) M/mcL Hgb 13.1 (12.0-15.0) g/dL Hct 39.2 (36.0-48.0) % MCV 90.9 (80.0-100.0) fL MCH 30.3 (26.0-34.0) pg MCHC 33.3 (31.0-36.0) g/dL RDW 12.3 (11.5-14.5) % Plt Count 401 (140-440) K/mcL MPV 6.9 L (7.4-10.4) fL Gran % 58.9 (38.0-78.0) % Lymph % (Auto) 34.3 (15.5-49.0) % Louisa % (Auto) 4.5 (1.0-12.0) % Eos % (Auto) 1.8 (0.0-7.0) % Baso % (Auto) 0.5 (0.0-2.0) % Gran # 8.4 H (1.8-8.0) K/mcL Lymph # (Auto) 4.9 H (1.5-4.8) K/mcL Louisa # (Auto) 0.6 (0.1-0.9) K/mcL Eos # (Auto) 0.3 (0.0-0.7) K/mcL Baso # (Auto) 0.1 (0.0-0.3) K/mcL ESR 75 H (0-20) mm/hr VBG Lactic Acid 2.2 (0.5-2.2) mmol/L Sodium 131 L (133-145) mmol/L Potassium 3.6 (3.3-5.1) mmol/L Chloride 93 L (96-108) mmol/L Carbon Dioxide 23 (22-30) mmol/L Anion Gap 15.0 (8-16) BUN 9 (6-20) mg/dl Creatinine 0.8 (0.6-1.1) mg/dl GFR Calculation 92 Glucose 353 H (70-105) mg/dL Calcium 8.9 (8.6-10.4) mg/dl Total Bilirubin < 0.2 (0.0-1.0) mg/dL AST 22 (0-37) U/l ALT 23 (0-40) U/l Alkaline Phosphatase 154 H (39-117) U/L C-Reactive Protein 2.0 H (0.0-0.8) mg/dl Total Protein 7.6 (5.9-8.4) gm/dL Albumin 4.0 (3.2-5.2) gm/dL Globulin 3.6 (2.2-3.7) gm/dL Albumin/Globulin Ratio 1.1 (1.0-2.3) Disposition <Anil Bey - Last Filed: 06/03/17 19:28> Pt seen by BILLING AND QUALITY TECHNICIAN/PA only: No <Emiliana Melchor - Last Filed: 06/03/17 19:55> Clinical Impression: Cellulitis, Diabetic foot ulcer Disposition: Xfer As Inpt ([facility]) Condition: Fair Referrals: John Chong [Primary Care Provider] -
[2017-06-03 18:30] LABS: Basophils # (Auto) 0.1 K/mcL (0.0-0.3); Basophils % (Auto) 0.5 % (0.0-2.0); Eosinophils # (Auto) 0.3 K/mcL (0.0-0.7); Eosinophils % (Auto) 1.8 % (0.0-7.0); Granulocytes % (Auto) 58.9 % (38.0-78.0); Lymphocytes # (Auto) 4.9 K/mcL (1.5-4.8); Lymphocytes % (Auto) 34.3 % (15.5-49.0); Mean Cell Volume 90.9 fL (80.0-100.0); Mean Corpuscular HGB Conc 33.3 g/dL (31.0-36.0); Mean Corpuscular Hemoglobin 30.3 pg (26.0-34.0); Monocytes # (Auto) 0.6 K/mcL (0.1-0.9); Monocytes % (Auto) 4.5 % (1.0-12.0); Platelet Count 401 K/mcL (140-440); RBC 4.32 M/mcL (4.00-5.20); Red Cell Distribution Width 12.3 % (11.5-14.5)
[2017-06-03 18:54] LABS: ALT/SGPT 23 U/l (0-40); Albumin/Globulin Ratio 1.1 (1.0-2.3); Alkaline Phosphatase 154 U/L (39-117); Blood Urea Nitrogen 9 mg/dl (6-20)
[2017-06-03] MEDS ORDERED: VANCOMYCIN 1,000 MG in 0.9 % SODIUM CHLORIDE 250 ML IV ONE (19:11)
[2017-06-03 19:28] LABS: Erythrocyte Sedimentation Rate 75 mm/hr (0-20)
[2017-06-03] MEDS ORDERED: VANCOMYCIN 500 MG VIAL ONE (19:29)
[2017-06-03] MEDS ORDERED: ACETAMINOPHEN 325 MG TABLET PO PRN ×2 (20:44→21:47)
[2017-06-03] MEDS ORDERED: ONDANSETRON 4 MG/2 ML VIAL IV PRN (20:44)
[2017-06-03] MEDS ORDERED: DEXTROSE 50% 50 ML VIAL IV PRN ×2 (20:44→21:47)
[2017-06-03] MEDS ORDERED: HYDROmorphone 2 MG/ML SYRINGE IV PRN (20:44)
[2017-06-03] MEDS ORDERED: DEXTROSE 31 GM ORAL.SUSP PO PRN ×2 (20:44→21:47)
[2017-06-03] MEDS ORDERED: 0.9 % SODIUM CHLORIDE 1,000 ML IV SCH (20:45)
[2017-06-03] MEDS ORDERED: PIPERACILLIN SODIUM/TAZOBACTAM 3.375 GM in DEXTROSE 5% IN WATER 50 ML IV SCH (20:45)
[2017-06-03] MEDS ORDERED: VANCOMYCIN PER PHARMACY IV ONE (20:53)
[2017-06-03] MEDS ORDERED: INSULIN GLARGINE, HUMAN 1 UNIT/0.01 ML SQ SCH (21:00)
[2017-06-03] MEDS ORDERED: INSULIN LISPRO 1 UNIT/0.01 ML UNIT SQ SCH (21:00)
--- NOTE | 2017-06-03 21:43 | Internal Med History&Physical ---
Medical - H&P: HPI Patient information: Note initiated : 06/03/17 at 9:36 pm Service Date, if different from initiated Date: [] Patient: Jeanette Anguiano a 41 y/o F admitted on 06/03/17 for right foot pain /draining. Chief complaint: Right foot swelling and pain History of present illness: Ms. Oli Gonzalez is a 41 year old F with a history of diabetes, hyper lipidemia , peripheral neuropathy, chronic pain, who presents the emergency department with worsening pain and edema of her right foot. History is obtained in speaking with the patient, reviewing old records and this facility, as well as office visits and records from [facility] as summarized below. Patient states that approximately one week ago yesterday, she went to urgent care because of pain and drainage in her right foot. Her fianc had noted there is some bloody drainage from her right great toe. She was diagnosed with a foot infection, was given Rocephin in the urgent care. She returned Monday , felt the edema was worsening, though the provider felt it was improving. She received further dose of Rocephin. On Monday, the patient felt that it was continuing to worsen, though the provider urgent care felt that it was stable/ improving. She received further Rocephin, tap point decided to seek further opinions. On Monday she was seen in infectious disease (I believe, based on what she told me). It was felt she needed to be seen by podiatry, was eventually referred to Dr. Sanchez's office instead. From there she was subsequently referred to the emergency department. That was at [facility]. She underwent CT scan showing evidence of cellulitis, underwent surgery for concern for abscess. She did have debridement of joint and of necrotic ulcer at the tip of her big toe. She was admitted [facility] on Monday, was discharged on Monday. Antibiotic choices were deferred to the hospitalist service, and she was discharged on cephalexin 500 mg every 6 hours, which she tells me she is taking 4 times a day. On Monday (yesterday) she followed up with primary care, was complaining of a painful foot. Is also noted to have a glucose of over 700. She was referred to the emergency room at [facility]. That point she did have some tenderness on her foot, glucoses were controlled, she was discharged to home. She returns today with worsening in the last 24 hours. Yesterday evening she developed a fever to 100, subsequently had a fever of 102 overnight. She felt hot and cold all night long. Early in the morning she developed nausea with emesis, initially of some food then of scant gastric contents. There is no hematemesis. In addition she is complaining of worsening swelling on her foot as well as yellowish drainage with some bloody drainage when she changed the bandage. She was seen in the ED, had evidence of edema on the foot with some drainage from her surgical wounds. She does have a surgical wound on both the distal dorsum of the foot, proximal dorsum near the ankle. Her white count was elevated at 14,000, though was 16,000 yesterday. She was hyperglycemic glucose in the 400s, these are better controlled in the ED. Repeat CT showed continued evidence of cellulitis, no evidence of bony involvement, no evidence of gas in the tissues or fluid collections. In addition to the nausea and vomiting,she is reported some loose stools. She is also complaining of a headache, Denies any chest pain, dyspnea, cou focal weaknesses. She does have chronic burning neuro She has new pain in the right foot She is being admitted for further treatment of cellulitis associated with diabetic foot infection, which has now failed outpatient therapy. Review of systems: The remainder of a 10 point review of systems is negative, except as noted in the HPI Medical - H&P: PMH Medical history: Diabetes, diagnosed in 2004 Diabetic neuropathy Chronic pain History of hyperosmolar nonketotic state Hyperlipidemia Headaches HSV infection History of hypothyroidism, no longer in replacement Depression Surgical history: Status post bilateral tubal ligation Status post appendectomy Status post cholecystectomy Status post right foot surgery this past Monday Pertinent family history: Diabetes mellitus in her mother, brother and 2 sisters. Mother also with coronary artery disease, status post CABG 3 Smoking status: Current every day smoker (1520 cigarettesday) Alcohol use: none Medical - H&P: Meds Home Medications Medication Instructions Recorded Confirmed Type Cyclobenzaprine HCl 10 mg PO BID 02/08/17 04/20/17 History Gabapentin 600 mg PO QIDP 02/08/17 04/20/17 History Insulin Aspart [Novolog] See Protocol SQ ACHS 02/08/17 04/20/17 History Insulin Glargine,Hum.rec.anlog 45 unit SQ BID 02/08/17 04/20/17 History [Lantus Solostar] traMADol [Ultram] 50 mg PO Q6HP PRN 02/08/17 04/20/17 History Ciprofloxacin [Cipro] 500 mg PO BID #14 tablet 04/20/17 Rx HYDROcodone/APAP 10/325MG [[place] 1 tab PO Q4H PRN 04/20/17 04/20/17 History 10/325Mg] HYDROcodone/APAP 5/325MG [[place] 1 tab PO Q4HP PRN #14 tablet 04/20/17 Rx 5/325Mg] Ondansetron HCl [Zofran ODT] 4 mg SL Q4-6HP PRN #10 tablet 04/20/17 Rx traZODone HCL [Desyrel] 50 mg PO HS 04/20/17 04/20/17 History Ondansetron HCl [Zofran ODT] 4 mg SL Q6H PRN #20 tablet 05/01/17 Rx Allergies Allergy/AdvReac Type Severity Reaction Status Date / Time ketorolac [From Toradol] AdvReac Intermediate Vomiting Verified 05/01/17 18:45 metoclopramide [From Reglan] AdvReac Intermediate Shakiness Verified 05/01/17 18 :45 morphine AdvReac Intermediate Headache Verified 05/01/17 18:45 NSAIDS (Non-Steroidal AdvReac Intermediate Vomiting Verified 05/01/17 18:45 Anti-Inflamma promethazine [From Phenergan] AdvReac Intermediate Shakiness Verified 05/01/17 18:45 Medical - H&P: Exam - Constitutional Vitals: Temp Pulse Resp BP Pulse Ox 98.5 F 109 H 18 137/96 95 06/03/17 21:11 06/03/17 21:11 06/03/17 21:11 06/03/17 21:11 06/03/17 21:11 General appearance: cooperative, mild distress - Head Head exam: Present: atraumatic - Eye Eye exam: Present: PERRL. Absent: conjunctival injection, scleral icterus - ENT ENT exam: Present: mucous membranes moist, normal oropharynx - Neck Neck exam: Present: full ROM. Absent: lymphadenopathy, thyromegaly - Respiratory Respiratory exam: Present: normal respiratory exam, CTAB. Absent: accessory muscle use, rales, rhonchi, wheezes - Cardiovascular Cardiovascular exam: Present: normal rate and rhythm. Absent: gallop, systolic murmur - Expanded Cardiovascular Exam Peripheral pulses: 1+: dorsalis pedis (L), dorsalis pedis (R) (difficult to palpate due to pain and edema), 2+: carotid (L) (no bruit), carotid (R) (no bruit) - GI/Abdominal GI/Abdominal exam: Present: soft, diminished bowel sounds, tenderness (mild upper abdominal tenderness). Absent: distended, guarding, organomegaly, rebound - Extremities Exam Extremities exam: Present: full ROM - Expanded Lower Extremities Exam Foot/Toe exam: Present: swelling, tenderness (Edema on dorsum of right foot. Surgical wounds intact. Minimal serosanguineous drainage at time of my exam. No crepitus. Query mild fluctuance mid dorsum of right foot). Absent: crepitus - Neurological Exam Neurological exam: Present: alert, CN II-XII intact, motor sensory deficit ( decreased sensation, BLE's), oriented X3 - Psychiatric Psychiatric exam: Present: anxious - Skin Additional comments: Right foot exam as above. Scattered areas of scarring, bilateral lower extremities. Medical - H&P: Reslt - Labs CBC & Chem 7: 06/03/17 17:45 06/03/17 17:45 - Impressions Right foot CT with evidence of cellulitis, no gas and shoes, no bony involvement Reviewed. Medical - H&P: A/P (1) Diabetic foot ulcer Current visit: Yes Status: Acute Diabetic foot wound with ulcer on the great toe and cellulitis onto the foot. Suspect polymicrobial infection in a diabetic patient. Cultures from [facility] were without growth, however she had received 3 days of ceftriaxone prior to that. Was discharged on cephalexin, has failed outpatient antibiotics. -Vancomycin and Zosyn -Elevate lower extremity, nonweightbearing -Surgical consultation (Dr Sanchez, called) -Pain control (2) Hyperglycemia due to type 2 diabetes mellitus Current visit: No Status: Acute Difficult to control diabetes with poor control in the past, most recent hemoglobin A1c 11.2. Uses Lantus twice a day as well as sliding scale insulin at home. Worsened glucose control likely driven by infection. -Diabetic diet -Accu-Cheks -Continue Lantus BID at home dose -Sliding-scale insulin -Recheck hemoglobin A1c (3) Diabetic peripheral neuropathy Current visit: Yes Status: Acute With associated chronic pain. -Glucose control -Continue gabapentin -Liberalize pain regimen given significant pain from cellulitis -Has a pain contract with primary care, will be discharged on home regimen - Narrative A/P Narrative: Will require minimum to midnights IV antibiotic therapy. Likely may require outpatient IV antibiotics. CODE STATUS discussed with the patient, she wishes to be full code.
[2017-06-03] MEDS ORDERED: VANCOMYCIN PER PHARMACY IV SCH (21:47)
[2017-06-03] MEDS ORDERED: HYDROmorphone 2 MG/ML SYRINGE ONE (21:58)
[2017-06-03] MEDS ORDERED: ACETAMINOPHEN 325 MG TABLET PO ONE (21:59)
[2017-06-03] MEDS: 0.9 % SODIUM CHLORIDE 1,000 ML IV SCH (22:00)
[2017-06-03] MEDS ORDERED: GABAPENTIN 400 MG CAPSULE PO SCH (22:00)
[2017-06-03] MEDS ORDERED: 0.9 % SODIUM CHLORIDE 10 ML SYRINGE IV SCH (22:00)
[2017-06-03] MEDS: 0.9 % SODIUM CHLORIDE 10 ML SYRINGE IV SCH (22:05)
[2017-06-03] MEDS: GABAPENTIN 400 MG CAPSULE PO SCH (22:34)
[2017-06-04] MEDS: HYDROmorphone 2 MG/ML SYRINGE IV PRN ×10 (00:04→23:44)
[2017-06-04] MEDS ORDERED: PIPERACILLIN SODIUM/TAZOBACTAM 3.375 GM VIAL IV ONE ×2 (00:04→06:00)
[2017-06-04] MEDS: PIPERACILLIN SODIUM/TAZOBACTAM 3.375 GM in DEXTROSE 5% IN WATER 50 ML IV SCH ×5 (00:05→23:45)
[2017-06-04] MEDS: ONDANSETRON 4 MG/2 ML VIAL IV PRN ×2 (02:20→15:06)
[2017-06-04] MEDS: GABAPENTIN 400 MG CAPSULE PO SCH ×3 (06:02→21:11)
[2017-06-04] MEDS: 0.9 % SODIUM CHLORIDE 10 ML SYRINGE IV SCH ×3 (06:03→21:22)
[2017-06-04 07:03] LABS: ALT/SGPT 26 U/l (0-40); Albumin 3.2 gm/dL (3.2-5.2); Alkaline Phosphatase 109 U/L (39-117); Bilirubin,Direct < 0.2 mg/dL (0.0-0.3); Blood Urea Nitrogen 12 mg/dl (6-20); Gamma Glutamyl Transpeptidase 63 U/L (5-36); Magnesium 1.6 mg/dL (1.6-2.5); Uric Acid 3.2 mg/dL (2.5-8.0)
[2017-06-04 07:25] LABS: Mean Cell Volume 88.4 fL (80.0-100.0); Mean Corpuscular HGB Conc 34.9 g/dL (31.0-36.0); Mean Corpuscular Hemoglobin 30.8 pg (26.0-34.0); Platelet Count 303 K/mcL (140-440); RBC 3.88 M/mcL (4.00-5.20); Red Cell Distribution Width 11.8 % (11.5-14.5)
[2017-06-04] MEDS ORDERED: PANTOPRAZOLE 40 MG TABLET PO SCH (07:30)
[2017-06-04 07:42] LABS: Estimated Average Glucose(eAG) 349 mg/dL; Hemoglobin A1C 13.8 % HGB (4.0-6.0)
[2017-06-04] MEDS: PANTOPRAZOLE 40 MG TABLET PO SCH (07:50)
[2017-06-04] MEDS: ENOXAPARIN 40 MG/0.4 ML SYRINGE SQ SCH (07:50)
[2017-06-04 08:06] LABS: Lymphocytes % 24 % (15-49); Monocytes % (Manual) 3 % (1-12); Platelet Estimate NORMAL (NORMAL); RBC Morphology NORMAL (NORMAL); Segmented Neutrophils % 73 % (38-78)
[2017-06-04] MEDS: INSULIN LISPRO 1 UNIT/0.01 ML UNIT SQ SCH ×4 (08:29→21:35)
[2017-06-04] MEDS: 0.9 % SODIUM CHLORIDE 1,000 ML IV SCH ×3 (08:30→21:33)
[2017-06-04] MEDS ORDERED: ENOXAPARIN 40 MG/0.4 ML SYRINGE SQ SCH (09:00)
[2017-06-04] MEDS: VANCOMYCIN 1,000 MG in 0.9 % SODIUM CHLORIDE 250 ML IV SCH ×2 (09:13→21:29)
--- NOTE | 2017-06-04 10:29 | Cat Scan Report ---
CLINICAL INFORMATION: Forefoot swelling postop TECHNIQUE: 2.5 mm helical slices were obtained in the ankle and foot. Following reconstruction, sagittal, coronal axial reformatted images were processed and reviewed in bone and soft tissue windows. FINDINGS: There is moderate edema or cellulitis and dorsal subcutaneous fat and fascia in the metatarsal region with small amounts of gas. Findings well recent surgery. Particularly indicate cellulitis or edema. There is no evidence of drainable abscess, foreign body or osteomyelitis There are no osseous abnormalities. Moderate hallux valgus deformity noted with hammertoes in the first through fifth digits. Joint spaces are otherwise normal. IMPRESSION: 1. Moderate focal cellulitis or edema in the dorsal subcutaneous soft tissues and fascia of the metatarsal region. No evidence of foreign body, discrete abscess or osteomyelitis 2. Moderate hallux valgus deformity and hammertoe deformities first through fifth digits. Interpreted and Authenticated by: Jeremy Tuttle 06/04/17
[2017-06-04] MEDS: INSULIN GLARGINE, HUMAN 1 UNIT/0.01 ML SQ SCH ×2 (11:31→21:18)
--- NOTE | 2017-06-04 12:02 | Orthopedic Progress Note ---
Subjective Patient information: Note initiated : 06/04/17 at 11:59 am Service Date, if different from initiated Date: [] Patient: Jeanette Anguiano 41 y/o F admitted on 06/03/17 for right foot pain /draining. Chief Complaint: [] Objective Vital signs: Vital Signs Temp Pulse Pulse Resp BP BP Pulse Ox 06/04/17 11:46 97.9 F 16 130/92 95 06/04/17 07:58 98.0 F 18 132/87 99 06/04/17 04:00 98.3 F 96 H 18 128/92 98 06/04/17 00:00 98.5 F 94 H 18 136/68 99 06/03/17 21:11 98.5 F 109 H 18 137/96 95 Intake and Output 06/03/17 06/04/17 06/04/17 21:59 05:59 13:59 Intake Total 800 / 1100 900 / 900 2660 / 2660 Output Total 50 / 50 100 / 100 1000 / 1000 Balance 750 / 1050 800 / 800 1660 / 1660 Intake: IV 100 / 100 1999 / 2000 Sodium Chloride 0.9% 1, 1999 / 1999 000 ml @ 100 mls/hr IV . Q10H [facility] Rx#:[id number] Zosyn 3.375 gm In 100 / 100 Dextrose 5% in Water 50 ml @ 100 mls/hr IV Q6H [facility] Rx#:[id number] Oral 800 / 800 800 / 800 660 / 660 Output: Void Amount 50 / 50 100 / 100 1000 / 1000 Other: Meal Breakfast Percent of Meal Consumed 100% Feeding Ability Independent # Voids 1 1 2 Intake & Output: Intake & Output 06/03/17 06/04/17 06/04/17 21:59 05:59 13:59 Intake Total 800 / 1100 900 / 900 2660 / 2660 Output Total 50 / 50 100 / 100 1000 / 1000 Balance 750 / 1050 800 / 800 1660 / 1660 Intake: IV 100 / 100 1999 / 2000 Sodium Chloride 0.9% 1, 1999 / 1999 000 ml @ 100 mls/hr IV . Q10H [facility] Rx#:[id number] Zosyn 3.375 gm In 100 / 100 Dextrose 5% in Water 50 ml @ 100 mls/hr IV Q6H [facility] Rx#:[id number] Oral 800 / 800 800 / 800 660 / 660 Output: Void Amount 50 / 50 100 / 100 1000 / 1000 Other: Meal Breakfast Percent of Meal Consumed 100% Feeding Ability Independent # Voids 1 1 2 Incision: Yes draining, Yes swollen Incision clean and dry: No Extremities exam IM: Yes Foot pink and warm Additional Comments: bloody drainage on dressing; nop abscess; poor granulation r hallux wound - Labs CBC & BMP: 06/04/17 04:45 06/04/17 04:45 Labs: 06/04/17 04:45 Hgb 12.0 Hct 34.3 L Assessment and Plan (1) Cellulitis continue broad spectrum antibiotics for cellulitis dsg changes. wound care consult tomorrow Status: Acute
--- NOTE | 2017-06-04 16:44 | Internal Med Progress Note ---
Medical - PN: Subj Patient information: Note initiated : 06/04/17 at 4:41 pm Service Date, if different from initiated Date: [] Patient: Jeanette Anguiano a 41 y/o F admitted on 06/03/17 for right foot pain /draining. Interval history: 06/04: Pain better controlled with intravenous Dilaudid. Thinks the edema may be a bit worse, but overall feels better. Keeping her foot elevated. Headache resolved. Nausea generally resolved, appetite is better and she is taking almost full meals. - Constitutional Vitals: Vital Signs Temp Pulse Resp BP Pulse Ox 97.7 F 96 H 16 147/98 98 06/04/17 16:00 06/04/17 04:00 06/04/17 16:00 06/04/17 16:00 06/04/17 16:00 Period Temp Pulse Resp BP Sys/Santiago Pulse Ox Last 24 Hr 97.7 F-98.5 F 94-109 16-18 128-147/68-98 95-99 Intake and Output 06/04/17 06/04/17 06/04/17 05:59 13:59 21:59 Intake Total 900 / 900 2660 / 2660 650 / 650 Output Total 100 / 100 1000 / 1000 1500 / 1500 Balance 800 / 800 1660 / 1660 -850 / -850 Intake & Output: Intake & Output 06/04/17 06/04/17 06/04/17 05:59 13:59 21:59 Intake Total 900 / 900 2660 / 2660 650 / 650 Output Total 100 / 100 1000 / 1000 1500 / 1500 Balance 800 / 800 1660 / 1660 -850 / -850 Intake: IV 100 / 100 1999 / 1999 50 / 50 Sodium Chloride 0.9% 1999 / 1999 000 ml @ 100 mls/hr IV . Q10H [facility] Rx#:[id number] Zosyn 3.375 gm In 100 / 100 50 / 50 Dextrose 5% in Water 50 ml @ 100 mls/hr IV Q6H [facility] Rx#:[id number] Oral 800 / 800 660 / 660 600 / 600 Output: Void Amount 100 / 100 1000 / 1000 1500 / 1500 Other: Meal Breakfast Lunch Percent of Meal Consumed 100% 100% Feeding Ability Independent Independent # Voids 1 2 3 - Additional findings Additional findings: General: In bed, no acute distress Chest: Clear to auscultation, good respiratory effort Cardiovascular: Regular rate and rhythm Abdomen: Soft, non-tender, active bowel sounds Musculoskeletal: Right foot with mild serosanguineous drainage, edema in the dorsum of the foot and proximal toes. No crepitus to palpation. Colons intact. Duskiness/dark erythema on dorsum of foot. Neuro: Alert, oriented 3, decreased peripheral sensation Medical - PN: Obj Da - Labs CBC & Chem 7: 06/04/17 04:45 06/04/17 04:45 Labs: Abnormal Lab Results 06/04/17 06/04/17 04:45 04:45 WBC 16.7 H RBC 3.88 L Hct 34.3 L MPV 7.3 L Chloride 95 L Carbon Dioxide 21 L Anion Gap 18.0 H Glucose 305 H Hemoglobin A1c 13.8 H Calcium 8.1 L GGT 63 H Triglycerides 180 H Meds: Medications Acetaminophen (Tylenol) 650 mg PO Q6HP PRN PRN Reason: PAIN/FEVER > 101 Last Admin: 06/04/17 04:38 Dose: 650 mg Dextrose (Dextrose 50%) 0 ml IV UD PRN PRN Reason: Hypoglycemia Diagnostic Test (Pha) (Accu-Chek) 1 each FS ACHS [facility] Last Admin: 06/04/17 11:29 Dose: 1 each Enoxaparin Sodium (Lovenox) 40 mg SQ DAILY [facility] Last Admin: 06/04/17 07:50 Dose: 40 mg Gabapentin (Neurontin) 800 mg PO Q8 [facility] Last Admin: 06/04/17 15:06 Dose: 800 mg Glucose (Insta-Glucose) 15 gm PO PRN PRN PRN Reason: Hypoglycemia Hydromorphone HCl (Dilaudid) 1 mg IV Q2HP PRN PRN Reason: Pain Last Admin: 06/04/17 15:06 Dose: 1 mg Sodium Chloride (Sodium Chloride 0.9%) 1,000 mls @ 100 mls/hr IV .Q10H [facility] Last Admin: 06/04/17 09:13 Dose: 100 mls/hr Piperacillin Sod/Tazobactam (Sod 3.375 gm/ Dextrose) 50 mls @ 100 mls/hr IV Q6H [facility] Last Infusion: 06/04/17 14:50 Dose: Infused Vancomycin HCl 1,000 mg/ (Sodium Chloride) 250 mls @ 250 mls/hr IV Q12H [facility] Last Admin: 06/04/17 09:13 Dose: 250 mls/hr Insulin Glargine (Lantus) 40 unit SQ BID [facility] Last Admin: 06/04/17 11:31 Dose: 40 unit Insulin Human Lispro (Humalog) 0 unit SQ ACHS [facility] PRN Reason: Protocol Last Admin: 06/04/17 11:31 Dose: 12 unit Ondansetron HCl (Zofran) 4 mg IV Q6HP PRN PRN Reason: Nausea And Vomiting Last Admin: 06/04/17 15:06 Dose: 4 mg Pantoprazole Sodium (Protonix) 40 mg PO QAMAC [facility] Last Admin: 06/04/17 07:50 Dose: 40 mg Sodium Chloride (Saline Flush) 10 ml IV Q8 [facility] Last Admin: 06/04/17 14:50 Dose: Not Given Vancomycin HCl (Vancomycin Per Pharmacy) 1 order IV UD [facility] Medical - PN: A/P (1) Diabetic foot ulcer Status: Acute Assessment and plan: with associated cellulitis Stable/mild improvement. -Continue vancomycin and Zosyn -Continue to elevate extremity -Continue dressing changes Current Visit: Yes (2) Hyperglycemia due to type 2 diabetes mellitus Status: Acute Assessment and plan: Improved on home dose of Lantus and sliding scale insulin. -Continue current regimen, adjust as needed Current Visit: No (3) Diabetic peripheral neuropathy Status: Acute Assessment and plan: Stable,continue gabapentin Current Visit: Yes
[2017-06-04] MEDS ORDERED: FLUCONAZOLE 100 MG TABLET PO ONE (18:28)
[2017-06-04] MEDS ORDERED: BISACODYL 10 MG SUPP.RECT PR PRN (19:29)
[2017-06-04] MEDS ORDERED: SENNOSIDES 1 TABLET PO PRN (19:30)
[2017-06-04] MEDS: DOCUSATE SODIUM 100 MG CAPSULE PO SCH (21:11)
[2017-06-04] MEDS: LACTOBACILLUS 1 CAPSULE PO SCH (21:33)
[2017-06-05] MEDS: HYDROmorphone 2 MG/ML SYRINGE IV PRN ×11 (01:30→22:55)
[2017-06-05] MEDS: GABAPENTIN 400 MG CAPSULE PO SCH ×4 (06:04→20:43)
[2017-06-05] MEDS: PIPERACILLIN SODIUM/TAZOBACTAM 3.375 GM in DEXTROSE 5% IN WATER 50 ML IV SCH ×4 (06:05→23:04)
[2017-06-05] MEDS: 0.9 % SODIUM CHLORIDE 10 ML SYRINGE IV SCH ×3 (06:06→23:15)
[2017-06-05 06:33] LABS: Mean Cell Volume 91.3 fL (80.0-100.0); Mean Corpuscular HGB Conc 34.3 g/dL (31.0-36.0); Mean Corpuscular Hemoglobin 31.3 pg (26.0-34.0); Platelet Count 302 K/mcL (140-440); RBC 3.57 M/mcL (4.00-5.20); Red Cell Distribution Width 12.6 % (11.5-14.5)
[2017-06-05 07:07] LABS: ALT/SGPT 59 U/l (0-40); Alkaline Phosphatase 143 U/L (39-117); Bilirubin,Direct < 0.2 mg/dL (0.0-0.3); Blood Urea Nitrogen 6 mg/dl (6-20); Gamma Glutamyl Transpeptidase 98 U/L (5-36); Magnesium 1.8 mg/dL (1.6-2.5); Uric Acid 1.5 mg/dL (2.5-8.0)
[2017-06-05] MEDS: ONDANSETRON 4 MG/2 ML VIAL IV PRN ×2 (07:09→19:30)
[2017-06-05 07:14] LABS: Band Neutrophils % 1 % (0-10); Eosinophils % (Manual) 4 % (0-7); Lymphocytes % 18 % (15-49); Metamyelocytes % 1 % (0-0); Monocytes % (Manual) 10 % (1-12); Platelet Estimate NORMAL (NORMAL); RBC Morphology NORMAL (NORMAL); Segmented Neutrophils % 65 % (38-78)
[2017-06-05] MEDS: INSULIN LISPRO 1 UNIT/0.01 ML UNIT SQ SCH ×4 (08:22→20:54)
[2017-06-05] MEDS: ESCITALOPRAM 20 MG TABLET PO SCH (10:16)
[2017-06-05] MEDS: DOCUSATE SODIUM 100 MG CAPSULE PO SCH ×2 (10:16→20:42)
[2017-06-05] MEDS: ENOXAPARIN 40 MG/0.4 ML SYRINGE SQ SCH (10:17)
[2017-06-05] MEDS: INSULIN GLARGINE, HUMAN 1 UNIT/0.01 ML SQ SCH ×2 (10:17→20:44)
[2017-06-05] MEDS: 0.9 % SODIUM CHLORIDE 1,000 ML IV SCH ×2 (10:17→13:47)
[2017-06-05] MEDS: PANTOPRAZOLE 40 MG TABLET PO SCH (10:57)
[2017-06-05] MEDS: VANCOMYCIN 1,000 MG in 0.9 % SODIUM CHLORIDE 250 ML IV SCH ×2 (10:57→20:45)
[2017-06-05] MEDS: LACTOBACILLUS 1 CAPSULE PO SCH ×2 (10:57→20:41)
--- NOTE | 2017-06-05 18:55 | General Surgery Consult Note ---
History of Present Illness Patient information: Note initiated : 06/05/17 at 6:50 pm Service Date, if different from initiated Date: [] Patient: Jeanette Gonzalez 41 y/o F admitted on 06/03/17 for Rt Foot Pain/Draining, Diabetic Foot Wound w/ Ulcer. Chief Complaint: [] Consult date: 06/05/17 Requesting physician: Miguel Sanchez (Wound Care Eval / Trt) History of present illness: I saw the saeed, examined the patient with KEITH Jon Inpatient wound care nurse and discussed this case with Dr. Samayoa,Hospitalist Physician. 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 Presented to [facility], ER about a week ago with csssi, cellulitis on dorsal surface of right foot. Underwent I / D debridement and discharged home on PO antibiotics. Subsequently seen by Dr. Sanchez at office for pain and blood stained drainage on dressings. Referred her to [facility] here for further evaluation and treatment. Medications and Allergies Home Medications Medication Instructions Recorded Confirmed Type Cyclobenzaprine HCl 10 mg PO BID 02/08/17 06/04/17 History Gabapentin 600 mg PO QIDP 02/08/17 06/04/17 History Insulin Aspart [Novolog] See Protocol SQ ACHS 02/08/17 06/04/17 History Insulin Glargine,Hum.rec.anlog 45 unit SQ BID 02/08/17 06/04/17 History [Lantus Solostar] traMADol [Ultram] 50 mg PO Q6HP PRN 02/08/17 06/04/17 History HYDROcodone/APAP 10/325MG [Strandquist 1 tab PO Q4H PRN 04/20/17 06/04/17 History 10/325Mg] traZODone HCL [Desyrel] 50 mg PO HS 04/20/17 06/04/17 History Escitalopram [Lexapro] 20 mg PO DAILY 06/04/17 06/04/17 History Allergies Allergy/AdvReac Type Severity Reaction Status Date / Time ketorolac [From Toradol] AdvReac Intermediate Vomiting Verified 05/01/17 18:45 metoclopramide [From Reglan] AdvReac Intermediate Shakiness Verified 05/01/17 18 :45 morphine AdvReac Intermediate Headache Verified 05/01/17 18:45 NSAIDS (Non-Steroidal AdvReac Intermediate Vomiting Verified 05/01/17 18:45 Anti-Inflamma promethazine [From Phenergan] AdvReac Intermediate Shakiness Verified 05/01/17 18:45 Exam Temp Pulse Resp BP Pulse Ox 98.5 F 99 H 18 128/83 98 06/05/17 16:00 06/05/17 12:00 06/05/17 16:00 06/05/17 16:00 06/05/17 16:00 - General physical appearance well developed, well nourished, no distress - Eyes PERRL, normal ocular movement - ENT normal pinna, normal nares, normal mucosa, no congestion - Head Head exam IM: Present: atraumatic, normal inspection, normocephalic - Neck no masses, no bruits, trachea midline, no lymphadectomy, no venous distension - Cardiovascular Cardiovascular exam IM: Present: normal rate and rhythm - Respiratory normal respiratory effort, clear to auscultation - Abdomen Abdomen: Present: soft, non tender, bowel sounds - Integumentary Present: other (Soft tissue edema dorsal surface right foot, Diminised DP / PT pulse. Sutures in place with local warmth. NO foul odor and NO crepitus. Toes are warm. ) - Neurologic Present: other (Neuropathic ulcer plantar RIGHT FIRST toe extending upto sub cutaneous tissue / tendon Snell 3. ) - Musculoskeletal Present: other (DFU under RIGHT first toe tip. See above 1.5 x 2 x 0.5 CM) - Psychiatric Present: oriented to time, oriented to person, oriented to place, speech is normal Results - Labs 06/06/17 04:40 06/06/17 04:40 Abnormal lab results 06/05/17 06/05/17 Range/Units 04:50 04:50 WBC 11.5 H (4.5-11.0) K/mcL RBC 3.57 L (4.00-5.20) M/mcL Hgb 11.2 L (12.0-15.0) g/dL Hct 32.6 L (36.0-48.0) % MPV 6.7 L (7.4-10.4) fL Metamyelocytes % 1 H (0-0) % Glucose 296 H (70-105) mg/dL Uric Acid 1.5 L (2.5-8.0) mg/dL Calcium 8.0 L (8.6-10.4) mg/dl GGT 98 H (5-36) U/L AST 119 H (0-37) U/l ALT 59 H (0-40) U/l Alkaline Phosphatase 143 H (39-117) U/L Albumin 3.0 L (3.2-5.2) gm/dL Triglycerides 215 H (<150) mg/dl Diabetes panel 06/05/17 Range/Units 04:50 Sodium 134 (133-145) mmol/L Potassium 4.4 (3.3-5.1) mmol/L Chloride 97 (96-108) mmol/L Carbon Dioxide 25 (22-30) mmol/L BUN 6 (6-20) mg/dl Creatinine 0.6 (0.6-1.1) mg/dl Glucose 296 H (70-105) mg/dL Calcium 8.0 L (8.6-10.4) mg/dl AST 119 H (0-37) U/l ALT 59 H (0-40) U/l Alkaline Phosphatase 143 H (39-117) U/L Total Protein 6.1 (5.9-8.4) gm/dL Albumin 3.0 L (3.2-5.2) gm/dL Triglycerides 215 H (<150) mg/dl Calcium panel 06/05/17 Range/Units 04:50 Calcium 8.0 L (8.6-10.4) mg/dl Phosphorus 2.9 (2.7-4.5) mg/dL Albumin 3.0 L (3.2-5.2) gm/dL Pituitary panel 06/05/17 Range/Units 04:50 Sodium 134 (133-145) mmol/L Potassium 4.4 (3.3-5.1) mmol/L Chloride 97 (96-108) mmol/L Carbon Dioxide 25 (22-30) mmol/L BUN 6 (6-20) mg/dl Creatinine 0.6 (0.6-1.1) mg/dl Glucose 296 H (70-105) mg/dL Calcium 8.0 L (8.6-10.4) mg/dl Adrenal panel 06/05/17 Range/Units 04:50 Sodium 134 (133-145) mmol/L Potassium 4.4 (3.3-5.1) mmol/L Chloride 97 (96-108) mmol/L Carbon Dioxide 25 (22-30) mmol/L BUN 6 (6-20) mg/dl Creatinine 0.6 (0.6-1.1) mg/dl Glucose 296 H (70-105) mg/dL Calcium 8.0 L (8.6-10.4) mg/dl Total Bilirubin 0.2 (0.0-1.0) mg/dL AST 119 H (0-37) U/l ALT 59 H (0-40) U/l Alkaline Phosphatase 143 H (39-117) U/L Total Protein 6.1 (5.9-8.4) gm/dL Albumin 3.0 L (3.2-5.2) gm/dL All other labs normal. Assessment and Plan (1) Hyperglycemia due to type 2 diabetes mellitus Status: Acute Priority: Medium Comment: Chronic malnutrition. Low pre albumin Nutrition / Dietary consult and Diabetic Teaching. Qualifiers: Diabetes mellitus fci insulin use: with joint terminal attack controller use Qualified Code( s): E11.65 - Type 2 diabetes mellitus with hyperglycemia; Z79.4 - terminal gauger ( current) use of insulin (2) Cellulitis and abscess of foot Diabetic Teaching and Dietary consult Status: Acute Priority: Medium Comment: S/P I/D of abxcess with surgical debridement about a week ago at [facility]. Plan: On going wound care and check non invasive vascular studies. TBI and Sensilase.
--- NOTE | 2017-06-05 19:47 | Internal Med Progress Note ---
Medical - PN: Subj Patient information: Note initiated : 06/05/17 at 7:44 pm Service Date, if different from initiated Date: [] Patient: Jeanette Gonzalez 41 y/o F admitted on 06/03/17 for Rt Foot Pain/Draining, Diabetic Foot Wound w/ Ulcer. Chief Complaint: [f/u DM foot infection] Interval history: 06/04: Pain better controlled with intravenous Dilaudid. Thinks the edema may be a bit worse, but overall feels better. Keeping her foot elevated. Headache resolved. Nausea generally resolved, appetite is better and she is taking almost full meals. 06/05: Patient lost a toenail over the night. She thinks her foot is more swollen. Been keeping it elevated most of the time. Pain about the same. Appetite good. Discussed case with Dr. Nichols, wound care - Constitutional Vitals: Vital Signs Temp Pulse Resp BP Pulse Ox 98.5 F 99 H 18 128/83 98 06/05/17 16:00 06/05/17 12:00 06/05/17 16:00 06/05/17 16:00 06/05/17 16:00 Period Temp Pulse Resp BP Sys/Santiago Pulse Ox Last 24 Hr 97.4 F-98.5 F 92-99 16-18 128-145/83-95 97-98 Intake and Output 06/05/17 06/05/17 06/05/17 05:59 13:59 21:59 Intake Total 1340 / 1340 1410 / 1410 450 / 450 Output Total 2600 / 2600 2200 / 2200 1000 / 1000 Balance -1260 / -1260 -790 / -790 -550 / -550 Weight 147 lb 6.4 oz Patient Weight 06/06/17 05:59 Weight 147 lb 6.4 oz Intake & Output: Intake & Output 06/05/17 06/05/17 06/05/17 05:59 13:59 21:59 Intake Total 1340 / 1340 1410 / 1410 450 / 450 Output Total 2600 / 2600 2200 / 2200 1000 / 1000 Balance -1260 / -1260 -790 / -790 -550 / -550 Weight 147 lb 6.4 oz Intake: IV 300 / 300 1050 / 1050 50 / 50 Sodium Chloride 0.9% 1, 1000 / 1000 000 ml @ 100 mls/hr IV . Q10H [facility] Rx#:[id number] Zosyn 3.375 gm In 50 / 50 50 / 50 50 / 50 Dextrose 5% in Water 50 ml @ 100 mls/hr IV Q6H [facility] Rx#:[id number] Vancomycin 1,000 mg In 250 / 250 Sodium Chloride 0.9% 250 ml @ 250 mls/hr IV Q12H [facility] Rx#:[id number] Oral 1040 / 1040 360 / 360 400 / 400 Output: Void Amount 2600 / 2600 2200 / 2200 1000 / 1000 Other: # Voids 2 - Additional findings Additional findings: General: In bed, no acute distress Chest: Clear, unlabored Cardiovascular: Regular Abdomen: Soft, diminished bowel sounds Musculoskeletal: Right lower extremity elevated. Dressings in place. Edema noted of the great toe. Some bloody drainage on the dressings. Neuro: Awake, alert, decreased sensation in the feet. Medical - PN: Obj Da - Labs CBC & Chem 7: 06/05/17 04:50 06/05/17 04:50 Labs: Abnormal Lab Results 06/05/17 06/05/17 06/04/17 04:50 04:50 04:45 WBC 11.5 H RBC 3.57 L Hgb 11.2 L Hct 32.6 L MPV 6.7 L Metamyelocytes % 1 H Chloride 95 L Carbon Dioxide 21 L Anion Gap 18.0 H Glucose 296 H 305 H Hemoglobin A1c 13.8 H Uric Acid 1.5 L Calcium 8.0 L 8.1 L GGT 98 H 63 H AST 119 H ALT 59 H Alkaline Phosphatase 143 H Albumin 3.0 L Triglycerides 215 H 180 H 06/04/17 04:45 WBC 16.7 H RBC 3.88 L Hgb Hct 34.3 L MPV 7.3 L Metamyelocytes % Chloride Carbon Dioxide Anion Gap Glucose Hemoglobin A1c Uric Acid Calcium GGT AST ALT Alkaline Phosphatase Albumin Triglycerides Meds: Medications Acetaminophen (Tylenol) 650 mg PO Q6HP PRN PRN Reason: PAIN/FEVER > 101 Last Admin: 06/04/17 04:38 Dose: 650 mg Bisacodyl (Dulcolax) 10 mg MD Q2-3DAYS PRN PRN Reason: Constipation Dextrose (Dextrose 50%) 0 ml IV UD PRN PRN Reason: Hypoglycemia Diagnostic Test (Pha) (Accu-Chek) 1 each FS ACHS [facility] Last Admin: 06/05/17 17:40 Dose: 1 each Docusate Sodium (Colace) 100 mg PO BID [facility] Last Admin: 06/05/17 10:16 Dose: 100 mg Enoxaparin Sodium (Lovenox) 40 mg SQ DAILY [facility] Last Admin: 06/05/17 10:17 Dose: 40 mg Escitalopram Oxalate (Lexapro) 20 mg PO DAILY [facility] Last Admin: 06/05/17 10:16 Dose: 20 mg Gabapentin (Neurontin) 800 mg PO Q8 [facility] Last Admin: 06/05/17 14:50 Dose: 800 mg Glucose (Insta-Glucose) 15 gm PO PRN PRN PRN Reason: Hypoglycemia Hydromorphone HCl (Dilaudid) 1 mg IV Q2HP PRN PRN Reason: Pain Last Admin: 06/05/17 18:46 Dose: 1 mg Piperacillin Sod/Tazobactam (Sod 3.375 gm/ Dextrose) 50 mls @ 100 mls/hr IV Q6H [facility] Last Admin: 06/05/17 18:22 Dose: 100 mls/hr Vancomycin HCl 1,000 mg/ (Sodium Chloride) 250 mls @ 250 mls/hr IV Q12H [facility] Last Admin: 06/05/17 10:57 Dose: 250 mls/hr Insulin Glargine (Lantus) 40 unit SQ BID [facility] Last Admin: 06/05/17 10:17 Dose: 40 unit Insulin Human Lispro (Humalog) 0 unit SQ ACHS [facility] PRN Reason: Protocol Last Admin: 06/05/17 18:21 Dose: 8 unit Lactobacillus Rhamnosus (Culturelle) 1 cap PO BID [facility] Last Admin: 06/05/17 10:57 Dose: 1 cap Ondansetron HCl (Zofran) 4 mg IV Q6HP PRN PRN Reason: Nausea And Vomiting Last Admin: 06/05/17 19:30 Dose: 4 mg Pantoprazole Sodium (Protonix) 40 mg PO QAMAC [facility] Last Admin: 06/05/17 10:57 Dose: 40 mg Senna (Senokot) 2 tab PO HSP PRN PRN Reason: Constipation Sodium Chloride (Saline Flush) 10 ml IV Q8 [facility] Last Admin: 06/05/17 14:01 Dose: Not Given Vancomycin HCl (Vancomycin Per Pharmacy) 1 order IV [facility] Medical - PN: A/P (1) Diabetic foot ulcer Status: Acute Assessment and plan: with associated cellulitis. Not much improvement last 24 hours though white count continues to trend toward normal. -Continue vancomycin and Zosyn -PICC ordered in anticipation of prolonged need for IV antibiotics -Wound care consultation requested by Dr. Sanchez; d/w Dr. Nichols -Continue to elevate extremity -Continue dressing changes Current Visit: Yes (2) Hyperglycemia due to type 2 diabetes mellitus Status: Acute Assessment and plan: Initial improvement with addition of home dose Lantus. Now running hyperglycemic as her appetite picked up. -Continue with twice a day Lantus -Add standing mealtime lispro -Continue additional sliding scale lispro for correction Current Visit: No (3) Diabetic peripheral neuropathy Status: Acute Assessment and plan: Stable,continue gabapentin Current Visit: Yes
[2017-06-06] MEDS: HYDROmorphone 2 MG/ML SYRINGE IV PRN ×11 (00:59→22:09)
[2017-06-06] MEDS: GABAPENTIN 400 MG CAPSULE PO SCH ×3 (05:40→20:29)
[2017-06-06] MEDS: 0.9 % SODIUM CHLORIDE 10 ML SYRINGE IV SCH ×3 (05:41→20:07)
[2017-06-06] MEDS: PIPERACILLIN SODIUM/TAZOBACTAM 3.375 GM in DEXTROSE 5% IN WATER 50 ML IV SCH ×3 (05:41→17:56)
[2017-06-06 07:18] LABS: Basophils # (Auto) 0 K/mcL (0.0-0.3); Basophils % (Auto) 0.1 % (0.0-2.0); Eosinophils # (Auto) 0.3 K/mcL (0.0-0.7); Eosinophils % (Auto) 2.6 % (0.0-7.0); Granulocytes % (Auto) 66.9 % (38.0-78.0); Lymphocytes # (Auto) 2.7 K/mcL (1.5-4.8); Lymphocytes % (Auto) 25.1 % (15.5-49.0); Mean Cell Volume 91.4 fL (80.0-100.0); Mean Corpuscular HGB Conc 33.3 g/dL (31.0-36.0); Mean Corpuscular Hemoglobin 30.5 pg (26.0-34.0); Monocytes # (Auto) 0.6 K/mcL (0.1-0.9); Monocytes % (Auto) 5.3 % (1.0-12.0); Platelet Count 311 K/mcL (140-440); RBC 3.74 M/mcL (4.00-5.20); Red Cell Distribution Width 12.4 % (11.5-14.5)
[2017-06-06 07:30] LABS: Blood Urea Nitrogen 6 mg/dl (6-20); Prealbumin 14.9 mg/dl (20-40)
[2017-06-06] MEDS: INSULIN LISPRO 1 UNIT/0.01 ML UNIT SQ SCH ×7 (07:59→20:09)
[2017-06-06] MEDS: ENOXAPARIN 40 MG/0.4 ML SYRINGE SQ SCH (07:59)
[2017-06-06] MEDS: DOCUSATE SODIUM 100 MG CAPSULE PO SCH ×2 (07:59→20:07)
[2017-06-06] MEDS: ESCITALOPRAM 20 MG TABLET PO SCH (07:59)
[2017-06-06] MEDS: INSULIN GLARGINE, HUMAN 1 UNIT/0.01 ML SQ SCH ×2 (07:59→20:09)
[2017-06-06] MEDS: PANTOPRAZOLE 40 MG TABLET PO SCH (08:00)
[2017-06-06] MEDS: HYDROmorphone 2 MG/ML SYRINGE IV SCH (09:23)
[2017-06-06] MEDS: LACTOBACILLUS 1 CAPSULE PO SCH ×2 (09:24→20:29)
[2017-06-06] MEDS: VANCOMYCIN 1,000 MG in 0.9 % SODIUM CHLORIDE 250 ML IV SCH ×2 (09:56→20:29)
--- NOTE | 2017-06-06 12:46 | General Surgery Progress Note ---
Subjective Patient reports: pain is less, other (coontinuing drainage from the suture site dorsal surface of foot.) Narrative: Note initiated : 06/06/17 at 12:43 pm Service Date, if different from initiated Date: [] Patient: Jeanette Gonzalez 41 y/o F admitted on 06/03/17 for Rt Foot Pain/Draining, Diabetic Foot Wound w/ Ulcer. Chief Complaint: []Patient seen on rounds with KEITH Jon. Patient continues to have drainage from the suture site over her foot. Denies odor, chills or throbbing. Slept reasonably well during the night. Objective Temp Pulse Resp BP Pulse Ox 96.5 F L 95 H 12 163/89 96 06/06/17 12:00 06/06/17 04:00 06/06/17 12:00 06/06/17 12:00 06/06/17 12:00 AVSS. No changes MARYSOL. L/E Pitting soft tissue edema over the dorsal surface of right foot, with serous drainage. Could palpate DP pulse ++/ TOE nails missing. Foot and ankle CT scans reviewed. Serous fluid at surgical site. Warm to touch. 3 sutures removed. Swab for c/s. NO necrotic tissue or foul odor. LABS. Prealbumin 14, WBC 10 K, Blood Glucose below 200 SENSILASE study cancelled. - Additional Data Intake & Output - Last 24 hours: Intake & Output 06/04/17 06/05/17 06/06/17 06/07/17 05:59 05:59 05:59 05:59 Intake Total 1700 / 2000 5950 / 5950 3000 / 3000 50 / 50 Output Total 150 / 150 5100 / 5100 6050 / 6050 2350 / 2350 Balance 1550 / 1850 850 / 850 -3050 / -3050 -2300 / -2300 Weight 147 lb 6.4 oz 148 lb - Labs 06/06/17 04:40 06/06/17 04:40 Diabetes panel 06/06/17 Range/Units 04:40 Sodium 139 (133-145) mmol/L Potassium 3.9 (3.3-5.1) mmol/L Chloride 100 (96-108) mmol/L Carbon Dioxide 26 (22-30) mmol/L BUN 6 (6-20) mg/dl Creatinine 0.7 (0.6-1.1) mg/dl Glucose 127 H (70-105) mg/dL Calcium 8.2 L (8.6-10.4) mg/dl Thyroid panel 06/06/17 Range/Units 04:40 TSH 3.58 (0.27-5.01) uIU/ml Calcium panel 06/06/17 Range/Units 04:40 Calcium 8.2 L (8.6-10.4) mg/dl Pituitary panel 06/06/17 Range/Units 04:40 Sodium 139 (133-145) mmol/L Potassium 3.9 (3.3-5.1) mmol/L Chloride 100 (96-108) mmol/L Carbon Dioxide 26 (22-30) mmol/L BUN 6 (6-20) mg/dl Creatinine 0.7 (0.6-1.1) mg/dl Glucose 127 H (70-105) mg/dL Calcium 8.2 L (8.6-10.4) mg/dl TSH 3.58 (0.27-5.01) uIU/ml Adrenal panel 06/06/17 Range/Units 04:40 Sodium 139 (133-145) mmol/L Potassium 3.9 (3.3-5.1) mmol/L Chloride 100 (96-108) mmol/L Carbon Dioxide 26 (22-30) mmol/L BUN 6 (6-20) mg/dl Creatinine 0.7 (0.6-1.1) mg/dl Glucose 127 H (70-105) mg/dL Calcium 8.2 L (8.6-10.4) mg/dl Assessment and Plan (1) Hyperglycemia due to type 2 diabetes mellitus Problem details: Chronic malnutrition. Low pre albumin Nutrition / Dietary consult and Diabetic Teaching. Status: Acute Assessment and plan: Ordered Oxandrin for patient. Dietary / Nutrition consult ordered. Current Visit: No (2) Cellulitis and abscess of foot Problem details: S/P I/D of abxcess with surgical debridement about a week ago at [facility]. Plan: On going wound care and check non invasive vascular studies. TBI and Sensilase. Status: Acute Assessment and plan: Soft tissue edema over dorsal surface of right foot, NO abscess. Labs improving. WBC and Blood sugars trending down. Plan: Local wound care, Repeat Labs in AM. Counselled at length ( > 10 mts > about smoking cessation Reassess tomorrow AM Current Visit: Yes - Time Spent With Patient Total time spent is greater than 50% in coordination of care (as documented) at patient's floor/unit and/or counseling patient:
--- NOTE | 2017-06-06 18:12 | Internal Med Progress Note ---
Medical - PN: Subj Patient information: Note initiated : 06/06/17 at 5:59 pm Service Date, if different from initiated Date: [] Patient: Jeanette Gonzalez 41 y/o F admitted on 06/03/17 for Rt Foot Pain/Draining, Diabetic Foot Wound w/ Ulcer. Chief Complaint: [f/u DM foot infection] Interval history: 06/04: Pain better controlled with intravenous Dilaudid. Thinks the edema may be a bit worse, but overall feels better. Keeping her foot elevated. Headache resolved. Nausea generally resolved, appetite is better and she is taking almost full meals. 06/05: Patient lost a toenail over the night. She thinks her foot is more swollen. Been keeping it elevated most of the time. Pain about the same. Appetite good. Discussed case with Dr. Nichols, wound care 06/06: Patient seen this morning, shortly after wound care been in. She was a bit tearful, foot was painful after sutures of been really moved impulses palpated. Had discussion on smoking cessation, reinforcing prior conversation with wound care. Discussed to [place] to improving her health and helping fight her foot infection, that she would be able to control herself would be stopping smoking as well as working on glucose control. She thinks the foot is looking better, less edema today. Still's serosanguineous drainage from surgical wounds. - Constitutional Vitals: Vital Signs Temp Pulse Resp BP Pulse Ox 96.8 F L 95 H 12 160/87 95 06/06/17 16:00 06/06/17 04:00 06/06/17 16:00 06/06/17 16:00 06/06/17 16:00 Period Temp Pulse Resp BP Sys/Santiago Pulse Ox Last 24 Hr 96.4 F-98.1 F 95-97 12-12 118-168/74-94 94-98 Intake and Output 06/06/17 06/06/17 06/06/17 05:59 13:59 21:59 Intake Total 200 / 200 470 / 470 300 / 300 Output Total 1550 / 1550 2350 / 2350 500 / 500 Balance -1350 / -1350 -1880 / -1880 -200 / -200 Intake & Output: Intake & Output 06/06/17 06/06/17 06/06/17 05:59 13:59 21:59 Intake Total 200 / 200 470 / 470 300 / 300 Output Total 1550 / 1550 2350 / 2350 500 / 500 Balance -1350 / -1350 -1880 / -1880 -200 / -200 Intake: IV 50 / 50 50 / 50 Zosyn 3.375 gm In 50 / 50 50 / 50 Dextrose 5% in Water 50 ml @ 100 mls/hr IV Q6H [facility] Rx#:[id number] Oral 150 / 150 240 / 240 300 / 300 GI Tube Flush 180 / 180 Output: Void Amount 1550 / 1550 2350 / 2350 500 / 500 Other: Meal Breakfast Lunch Percent of Meal Consumed 100% 100% Feeding Ability Independent Independent # Voids 1 # Bowel Movements 1 - Additional findings Additional findings: General: Tearful, upset at the prospect of severe foot infection, possible surgery as well as pain Chest: Clear without rhonchi or rales Cardiovascular: Regular Abdomen: Soft Musculoskeletal: Right foot with less dorsal edema. Less edema at the toes. Dusky erythema regressing from lateral margins of the foot. Serosanguineous drainage from surgical wounds. Neuro: Alert, oriented, displays good insight into her condition Medical - PN: Obj Da - Labs CBC & Chem 7: 06/06/17 04:40 06/06/17 04:40 Labs: Abnormal Lab Results 06/06/17 06/06/17 06/05/17 04:40 04:40 04:50 WBC RBC 3.74 L Hgb 11.4 L Hct 34.2 L MPV 6.9 L Metamyelocytes % Chloride Carbon Dioxide Anion Gap Glucose 127 H 296 H Hemoglobin A1c Uric Acid 1.5 L Calcium 8.2 L 8.0 L GGT 98 H AST 119 H ALT 59 H Alkaline Phosphatase 143 H Albumin 3.0 L Prealbumin 14.9 L Triglycerides 215 H 06/05/17 06/04/17 06/04/17 04:50 04:45 04:45 WBC 11.5 H 16.7 H RBC 3.57 L 3.88 L Hgb 11.2 L Hct 32.6 L 34.3 L MPV 6.7 L 7.3 L Metamyelocytes % 1 H Chloride 95 L Carbon Dioxide 21 L Anion Gap 18.0 H Glucose 305 H Hemoglobin A1c 13.8 H Uric Acid Calcium 8.1 L GGT 63 H AST ALT Alkaline Phosphatase Albumin Prealbumin Triglycerides 180 H Meds: Medications Acetaminophen (Tylenol) 650 mg PO Q6HP PRN PRN Reason: PAIN/FEVER > 101 Last Admin: 06/04/17 04:38 Dose: 650 mg Bisacodyl (Dulcolax) 10 mg PA Q2-3DAYS PRN PRN Reason: Constipation Dextrose (Dextrose 50%) 0 ml IV UD PRN PRN Reason: Hypoglycemia Diagnostic Test (Pha) (Accu-Chek) 1 each FS ACHS [facility] Last Admin: 06/06/17 16:56 Dose: 1 each Docusate Sodium (Colace) 100 mg PO BID [facility] Last Admin: 06/06/17 07:59 Dose: 100 mg Enoxaparin Sodium (Lovenox) 40 mg SQ DAILY [facility] Last Admin: 06/06/17 07:59 Dose: 40 mg Escitalopram Oxalate (Lexapro) 20 mg PO DAILY [facility] Last Admin: 06/06/17 07:59 Dose: 20 mg Gabapentin (Neurontin) 800 mg PO Q8 [facility] Last Admin: 06/06/17 14:11 Dose: 800 mg Glucose (Insta-Glucose) 15 gm PO PRN PRN PRN Reason: Hypoglycemia Hydromorphone HCl (Dilaudid) 1 mg IV Q2HP PRN PRN Reason: Pain Last Admin: 06/06/17 17:55 Dose: 1 mg Hydromorphone HCl (Dilaudid) 1 mg IV ONCE [facility] Last Admin: 06/06/17 09:23 Dose: 1 mg Piperacillin Sod/Tazobactam (Sod 3.375 gm/ Dextrose) 50 mls @ 100 mls/hr IV Q6H [facility] Last Admin: 06/06/17 11:11 Dose: 100 mls/hr Vancomycin HCl 1,000 mg/ (Sodium Chloride) 250 mls @ 250 mls/hr IV Q12H [facility] Last Admin: 06/06/17 09:56 Dose: 250 mls/hr Insulin Glargine (Lantus) 40 unit SQ BID [facility] Last Admin: 06/06/17 07:59 Dose: 40 unit Insulin Human Lispro (Humalog) 0 unit SQ ACHS [facility] PRN Reason: Protocol Last Admin: 06/06/17 16:55 Dose: 4 unit Insulin Human Lispro (Humalog) 10 unit SQ AC [facility] Last Admin: 06/06/17 16:56 Dose: 10 unit Lactobacillus Rhamnosus (Culturelle) 1 cap PO BID [facility] Last Admin: 06/06/17 09:24 Dose: 1 cap Ondansetron HCl (Zofran) 4 mg IV Q6HP PRN PRN Reason: Nausea And Vomiting Last Admin: 06/05/17 19:30 Dose: 4 mg Oxandrolone (Oxandrin) 5 mg PO BID [facility] Pantoprazole Sodium (Protonix) 40 mg PO QAMAC [facility] Last Admin: 06/06/17 08:00 Dose: 40 mg Senna (Senokot) 2 tab PO HSP PRN PRN Reason: Constipation Sodium Chloride (Saline Flush) 10 ml IV Q8 [facility] Last Admin: 06/06/17 14:43 Dose: Not Given Vancomycin HCl (Vancomycin Per Pharmacy) 1 order IV UD [facility] Medical - PN: A/P (1) Diabetic foot ulcer Status: Acute Assessment and plan: with associated cellulitis. Improvement in the last 24 hours. White count is normalized. Erythema does appear to be less extensive and edema somewhat improved. -Continue vancomycin and Zosyn -PICC ordered in anticipation of prolonged need for IV antibiotics -Wound care consultation/evaluations -Continue to elevate extremity -Continue dressing changes Current Visit: Yes (2) Hyperglycemia due to type 2 diabetes mellitus Problem details: Chronic malnutrition. Low pre albumin Nutrition / Dietary consult and Diabetic Teaching. Status: Acute Assessment and plan: Glucose on labs 127 this morning. Standing dose of insulin added with meals yesterday, had to hold that after lunch secondary to glucose low 100s preprandially. We'll continue to monitor and adjust. She has been requesting snacks but has not been getting them, that may have contributed to her glucose control as well. May need to adjust to a carb based time insulin regimen in addition to her Lantus and sliding scale -Continue with twice a day Lantus -Continue mealtime lispro, adjust as needed -Continue additional sliding scale lispro for correction Current Visit: No (3) Diabetic peripheral neuropathy Status: Acute Assessment and plan: Stable,continue gabapentin Also receiving PRN pain medication for pain from foot infection/recent surgery Current Visit: Yes
[2017-06-06] MEDS: OXANDROLONE 2.5 MG TABLET PO SCH (20:29)
[2017-06-07] MEDS: HYDROmorphone 2 MG/ML SYRINGE IV PRN ×9 (00:08→23:07)
[2017-06-07] MEDS: PIPERACILLIN SODIUM/TAZOBACTAM 3.375 GM in DEXTROSE 5% IN WATER 50 ML IV SCH ×4 (00:08→18:03)
[2017-06-07] MEDS: 0.9 % SODIUM CHLORIDE 10 ML SYRINGE IV SCH ×3 (05:42→23:13)
[2017-06-07] MEDS: GABAPENTIN 400 MG CAPSULE PO SCH ×3 (05:43→22:16)
[2017-06-07 07:48] LABS: Blood Urea Nitrogen 11 mg/dl (6-20)
[2017-06-07] MEDS ORDERED: MUPIROCIN OINT 2% 22GM TOPICAL PRN (09:07)
--- NOTE | 2017-06-07 10:09 | XRay Report ---
HISTORY: Reason for Exam:PICC PLACEMENT FINDINGS: There is a PICC line placed to the right arm with the tip near the boundary of the superior vena cava and right atrium. No pneumothorax or pleural effusion are present. The lungs are clear and well expanded. The heart size, mediastinum and yelitza are normal. IMPRESSION: Well-positioned PICC line and no complication following catheter insertion. Nursing was called with results Interpreted and Authenticated by: Asad Reyna 06/07/17
[2017-06-07] MEDS: INSULIN LISPRO 1 UNIT/0.01 ML UNIT SQ SCH ×7 (10:44→21:59)
[2017-06-07] MEDS: INSULIN GLARGINE, HUMAN 1 UNIT/0.01 ML SQ SCH ×2 (10:46→22:16)
[2017-06-07] MEDS: ENOXAPARIN 40 MG/0.4 ML SYRINGE SQ SCH (10:47)
[2017-06-07] MEDS: VANCOMYCIN 1,000 MG in 0.9 % SODIUM CHLORIDE 250 ML IV SCH ×2 (10:48→21:59)
[2017-06-07] MEDS: ESCITALOPRAM 20 MG TABLET PO SCH (11:10)
[2017-06-07] MEDS: PANTOPRAZOLE 40 MG TABLET PO SCH (11:10)
[2017-06-07] MEDS: LACTOBACILLUS 1 CAPSULE PO SCH ×2 (11:10→22:17)
[2017-06-07] MEDS: DOCUSATE SODIUM 100 MG CAPSULE PO SCH ×2 (11:10→22:15)
[2017-06-07] MEDS: OXANDROLONE 2.5 MG TABLET PO SCH ×2 (11:30→23:50)
--- NOTE | 2017-06-07 13:13 | General Surgery Progress Note ---
Subjective Patient reports: no new complaints Narrative: Note initiated : 06/07/17 at 1:09 pm Service Date, if different from initiated Date: [] Patient: Jeanette Gonzalez 41 y/o F admitted on 06/03/17 for Rt Foot Pain/Draining, Diabetic Foot Wound w/ Ulcer. Chief Complaint: []Seen on rounds this morning with Dr. Samayoa, Hospitalist and Kae RN. Bloos ugar 300 + this morning, Later repeat sugar 127. Objective Temp Pulse Resp BP Pulse Ox 98.2 F 82 14 120/79 96 06/07/17 11:52 06/07/17 11:52 06/07/17 11:52 06/07/17 11:52 06/07/17 11:52 AVSS> No changes MARYSOL. L/E EDEMA and tenderness dorsal aspect of right foot is less. Still has clear serous drainage is small amounts. No odor. Tenderness is less. No crepitus and NO warmth. Has NOT smoked since last seen . - Additional Data Intake & Output - Last 24 hours: Intake & Output 06/05/17 06/06/17 06/07/17 06/08/17 05:59 05:59 05:59 05:59 Intake Total 5950 / 5950 3000 / 3000 1420 / 1420 590 / 590 Output Total 5100 / 5100 6050 / 6050 4550 / 4550 2800 / 2800 Balance 850 / 850 -3050 / -3050 -3130 / -3130 -2210 / -2210 Weight 147 lb 6.4 oz 148 lb 150 lb 8 oz - Labs 06/06/17 04:40 06/07/17 06:04 Diabetes panel 06/07/17 Range/Units 06:04 Sodium 133 (133-145) mmol/L Potassium 4.1 (3.3-5.1) mmol/L Chloride 97 (96-108) mmol/L Carbon Dioxide 26 (22-30) mmol/L BUN 11 (6-20) mg/dl Creatinine 0.7 (0.6-1.1) mg/dl Glucose 330 H (70-105) mg/dL Calcium 8.0 L (8.6-10.4) mg/dl Calcium panel 06/07/17 Range/Units 06:04 Calcium 8.0 L (8.6-10.4) mg/dl Pituitary panel 06/07/17 Range/Units 06:04 Sodium 133 (133-145) mmol/L Potassium 4.1 (3.3-5.1) mmol/L Chloride 97 (96-108) mmol/L Carbon Dioxide 26 (22-30) mmol/L BUN 11 (6-20) mg/dl Creatinine 0.7 (0.6-1.1) mg/dl Glucose 330 H (70-105) mg/dL Calcium 8.0 L (8.6-10.4) mg/dl Adrenal panel 06/07/17 Range/Units 06:04 Sodium 133 (133-145) mmol/L Potassium 4.1 (3.3-5.1) mmol/L Chloride 97 (96-108) mmol/L Carbon Dioxide 26 (22-30) mmol/L BUN 11 (6-20) mg/dl Creatinine 0.7 (0.6-1.1) mg/dl Glucose 330 H (70-105) mg/dL Calcium 8.0 L (8.6-10.4) mg/dl Assessment and Plan (1) Hyperglycemia due to type 2 diabetes mellitus Problem details: Chronic malnutrition. Low pre albumin Nutrition / Dietary consult and Diabetic Teaching. Status: Acute Assessment and plan: Ordered Oxandrin for patient. Dietary / Nutrition consult ordered. Current Visit: No (2) Cellulitis and abscess of foot Problem details: S/P I/D of abxcess with surgical debridement about a week ago at [facility]. Plan: On going wound care and check non invasive vascular studies. TBI and Sensilase. Status: Acute Assessment and plan: Soft tissue edema over dorsal surface of right foot, NO abscess. Labs improving. WBC and Blood sugars trending down. Plan: Local wound care, Repeat Labs in AM. Counselled at length ( > 10 mts > about smoking cessation Reassess tomorrow AM Current Visit: Yes - Narrative A/P Narrative: Assessment: No acute interval changes since yesterday. Patient started on OXANDRIN. Slow resolution of inflammatory changes. Patient NEEDS ongoing wound care and monitoring labs and IV antibiotics whilst she is REPLETE nutritionally. Will HOLD OFF on OR debridement at this time. Reassess in PM. Would PREFER to continue with Local wound care and IV antibiotics WHILST HER HYPEROSMOLAR STATE is corrected. Later needs ALTAGRACIA, Sensilase and Debridement Cannot rule out possibility of need for future Amputation at this time. plan: CASE MANAGEMENT to co-ordinate on going care for this patient. /// Swing BED versus Out patient IV antibiotics and dressing changes. Will continue to see her at wound center as needed. Will discuss with Dr. Sanchez Orthopedics Surgeon - Time Spent With Patient Total time spent is greater than 50% in coordination of care (as documented) at patient's floor/unit and/or counseling patient:
[2017-06-07] MEDS: HYDROmorphone 2 MG TABLET PO PRN ×3 (13:23→22:15)
--- NOTE | 2017-06-07 16:32 | General Surgery Progress Note ---
Subjective Patient reports: other (Blood stained ( Hemoserous ) drainage from the right foot wound.since this morning. ) Narrative: Note initiated : 06/07/17 at 4:26 pm Service Date, if different from initiated Date: [] Patient: Jeanette Gonzalez 41 y/o F admitted on 06/03/17 for Rt Foot Pain/Draining, Diabetic Foot Wound w/ Ulcer. Chief Complaint: [] Objective Temp Pulse Resp BP Pulse Ox 98.2 F 82 14 120/79 96 06/07/17 11:52 06/07/17 11:52 06/07/17 11:52 06/07/17 11:52 06/07/17 11:52 AVSS, No changes MARYSOL L/E RIGHT foot Wound examined. Resolving inflammatory changes anterior foot skin ans sub cutaneous tissue. NO odor, No crepitus, Improving ROM of ankle and foot Inversion and eversion. Neuropathic ulcer plantar, under 1 st toe is dry and clean with adherent black eschar. Soft callous around margins. - Additional Data Intake & Output - Last 24 hours: Intake & Output 06/05/17 06/06/17 06/07/17 06/08/17 05:59 05:59 05:59 05:59 Intake Total 5950 / 5950 3000 / 3000 1420 / 1420 590 / 590 Output Total 5100 / 5100 6050 / 6050 4550 / 4550 2800 / 2800 Balance 850 / 850 -3050 / -3050 -3130 / -3130 -2210 / -2210 Weight 147 lb 6.4 oz 148 lb 150 lb 8 oz 150 lb 8 oz - Labs 06/06/17 04:40 06/07/17 06:04 Diabetes panel 06/07/17 Range/Units 06:04 Sodium 133 (133-145) mmol/L Potassium 4.1 (3.3-5.1) mmol/L Chloride 97 (96-108) mmol/L Carbon Dioxide 26 (22-30) mmol/L BUN 11 (6-20) mg/dl Creatinine 0.7 (0.6-1.1) mg/dl Glucose 330 H (70-105) mg/dL Calcium 8.0 L (8.6-10.4) mg/dl Calcium panel 06/07/17 Range/Units 06:04 Calcium 8.0 L (8.6-10.4) mg/dl Pituitary panel 06/07/17 Range/Units 06:04 Sodium 133 (133-145) mmol/L Potassium 4.1 (3.3-5.1) mmol/L Chloride 97 (96-108) mmol/L Carbon Dioxide 26 (22-30) mmol/L BUN 11 (6-20) mg/dl Creatinine 0.7 (0.6-1.1) mg/dl Glucose 330 H (70-105) mg/dL Calcium 8.0 L (8.6-10.4) mg/dl Adrenal panel 06/07/17 Range/Units 06:04 Sodium 133 (133-145) mmol/L Potassium 4.1 (3.3-5.1) mmol/L Chloride 97 (96-108) mmol/L Carbon Dioxide 26 (22-30) mmol/L BUN 11 (6-20) mg/dl Creatinine 0.7 (0.6-1.1) mg/dl Glucose 330 H (70-105) mg/dL Calcium 8.0 L (8.6-10.4) mg/dl Assessment and Plan (1) Hyperglycemia due to type 2 diabetes mellitus Problem details: Chronic malnutrition. Low pre albumin Nutrition / Dietary consult and Diabetic Teaching. Status: Acute Assessment and plan: Ordered Oxandrin for patient. Dietary / Nutrition consult ordered. Current Visit: No (2) Cellulitis and abscess of foot Problem details: S/P I/D of abxcess with surgical debridement about a week ago at [facility]. Plan: On going wound care and check non invasive vascular studies. TBI and Sensilase. Status: Acute Assessment and plan: Soft tissue edema over dorsal surface of right foot, NO abscess. Labs improving. WBC and Blood sugars trending down. Plan: Local wound care, Repeat Labs in AM. Counselled at length ( > 10 mts > about smoking cessation Reassess tomorrow AM Current Visit: Yes - Narrative A/P Narrative: Assessment; Resolving post surgical changes . Needs on going IV antibiotics, pain meds, wound care BID and nutrition repletion. Reviewed note from disease case manager rn. Plan: Continue current treatment. Review labs tomorrow 06/08/2017 morning. - Time Spent With Patient Total time spent is greater than 50% in coordination of care (as documented) at patient's floor/unit and/or counseling patient:
--- NOTE | 2017-06-07 16:35 | Internal Med Progress Note ---
Medical - PN: Subj Patient information: Note initiated : 06/07/17 at 4:33 pm Service Date, if different from initiated Date: [] Patient: Jeanette Gonzalez 41 y/o F admitted on 06/03/17 for Rt Foot Pain/Draining, Diabetic Foot Wound w/ Ulcer. Chief Complaint: [follow-up diabetic foot infection] Interval history: 06/04: Pain better controlled with intravenous Dilaudid. Thinks the edema may be a bit worse, but overall feels better. Keeping her foot elevated. Headache resolved. Nausea generally resolved, appetite is better and she is taking almost full meals. 06/05: Patient lost a toenail over the night. She thinks her foot is more swollen. Been keeping it elevated most of the time. Pain about the same. Appetite good. Discussed case with Dr. Nichols, wound care 06/06: Patient seen this morning, shortly after wound care been in. She was a bit tearful, foot was painful after sutures of been really moved impulses palpated. Had discussion on smoking cessation, reinforcing prior conversation with wound care. Discussed to Jolly to improving her health and helping fight her foot infection, that she would be able to control herself would be stopping smoking as well as working on glucose control. She thinks the foot is looking better, less edema today. Still's serosanguineous drainage from surgical wounds. 06/07. seen on rounds this morning with Dr. Nichols. Glucoses were fairly well controlled yesterday, however a.m. basic was 330. Subsequently 127. She says she had cucumbers as snack, no other snack overnight. States she has not smoked since yesterday. Still some pain in the foot, though she notes that it's not as swollen as it had been previously. Discussed changing over to oral pain regimen. As for full of not having intravenous medications available, explained to her we need to focus on pain control with oral medications, only using IV medications as a backup. - Constitutional Vitals: Vital Signs Temp Pulse Resp BP Pulse Ox 98.5 F 82 16 120/76 95 06/07/17 16:00 06/07/17 11:52 06/07/17 16:00 06/07/17 16:00 06/07/17 16:00 Period Temp Pulse Resp BP Sys/Santiago Pulse Ox Last 24 Hr 97.4 F-98.6 F 82-97 14-16 118-134/76-80 95-98 Intake and Output 06/07/17 06/07/17 06/07/17 05:59 13:59 21:59 Intake Total 50 / 50 590 / 590 Output Total 800 / 800 2800 / 2800 Balance -750 / -750 -2210 / -2210 Weight 150 lb 8 oz Patient Weight 06/08/17 05:59 Weight 150 lb 8 oz Intake & Output: Intake & Output 06/07/17 06/07/17 06/07/17 05:59 13:59 21:59 Intake Total 50 / 50 590 / 590 Output Total 800 / 800 2800 / 2800 Balance -750 / -750 -2210 / -2210 Weight 150 lb 8 oz Intake: IV 50 / 50 350 / 350 Zosyn 3.375 gm In 50 / 50 100 / 100 Dextrose 5% in Water 50 ml @ 100 mls/hr IV Q6H [facility] Rx#:[id number] Vancomycin 1,000 mg In 250 / 250 Sodium Chloride 0.9% 250 ml @ 250 mls/hr IV Q12H [facility] Rx#:[id number] Oral 0 / 0 240 / 240 Output: Void Amount 800 / 800 2800 / 2800 Other: Meal Breakfast Breakfast Percent of Meal Consumed 100% 100% Feeding Ability Independent - Additional findings Additional findings: General: Laying in bed, looks a little uncomfortable Chest: Clear Cardiovascular: Regular Abdomen: Soft, active bowel sounds Extremities: Right foot undressed, serous drainage from distal incision where sutures were removed. Decreased edema on the dorsum of the foot. Dusky erythema fading. Neuro: Neuropathy in lower extremities, otherwise intact Medical - PN: Obj Da - Labs CBC & Chem 7: 06/06/17 04:40 06/07/17 06:04 Labs: CB at 04 36, 226 at 07 41, 127 at 1123 Laboratory Results - last 48 hr 06/06/17 06/06/17 06/07/17 04:40 04:40 06:04 WBC 10.9 RBC 3.74 L Hgb 11.4 L Hct 34.2 L MCV 91.4 MCH 30.5 MCHC 33.3 RDW 12.4 Plt Count 311 MPV 6.9 L Gran % 66.9 Lymph % (Auto) 25.1 Graves % (Auto) 5.3 Eos % (Auto) 2.6 Baso % (Auto) 0.1 Gran # 7.3 Lymph # (Auto) 2.7 Graves # (Auto) 0.6 Eos # (Auto) 0.3 Baso # (Auto) 0 Sodium 139 133 Potassium 3.9 4.1 Chloride 100 97 Carbon Dioxide 26 26 Anion Gap 13.0 10.0 BUN 6 11 Creatinine 0.7 0.7 GFR Calculation 108 108 Glucose 127 H 330 H Calcium 8.2 L 8.0 L Prealbumin 14.9 L TSH 3.58 Meds: Medications Acetaminophen (Tylenol) 650 mg PO Q6HP PRN PRN Reason: PAIN/FEVER > 101 Last Admin: 06/04/17 04:38 Dose: 650 mg Bisacodyl (Dulcolax) 10 mg IN Q2-3DAYS PRN PRN Reason: Constipation Dextrose (Dextrose 50%) 0 ml IV UD PRN PRN Reason: Hypoglycemia Diagnostic Test (Pha) (Accu-Chek) 1 each FS ACHS [facility] Last Admin: 06/07/17 11:23 Dose: 1 each Docusate Sodium (Colace) 100 mg PO BID [facility] Last Admin: 06/07/17 11:10 Dose: 100 mg Enoxaparin Sodium (Lovenox) 40 mg SQ DAILY [facility] Last Admin: 06/07/17 10:47 Dose: 40 mg Escitalopram Oxalate (Lexapro) 20 mg PO DAILY [facility] Last Admin: 06/07/17 11:10 Dose: 20 mg Gabapentin (Neurontin) 800 mg PO Q8 [facility] Last Admin: 06/07/17 13:24 Dose: 800 mg Glucose (Insta-Glucose) 15 gm PO PRN PRN PRN Reason: Hypoglycemia Heparin Sodium (Porcine) (Heparin Flush) 2 ml IV Q12 [facility] Last Admin: 06/07/17 11:26 Dose: Not Given Hydromorphone HCl (Dilaudid) 1 mg IV Q2HP PRN PRN Reason: Pain Last Admin: 06/07/17 14:43 Dose: 1 mg Hydromorphone HCl (Dilaudid) 4 mg PO Q4-6HP PRN PRN Reason: Pain Last Admin: 06/07/17 13:23 Dose: 4 mg Piperacillin Sod/Tazobactam (Sod 3.375 gm/ Dextrose) 50 mls @ 100 mls/hr IV Q6H [facility] Last Infusion: 06/07/17 13:03 Dose: Infused Vancomycin HCl 1,000 mg/ (Sodium Chloride) 250 mls @ 250 mls/hr IV Q12H [facility] Last Infusion: 06/07/17 12:21 Dose: Infused Insulin Glargine (Lantus) 40 unit SQ BID [facility] Last Admin: 06/07/17 10:46 Dose: 40 unit Insulin Human Lispro (Humalog) 0 unit SQ ACHS [facility] PRN Reason: Protocol Last Admin: 06/07/17 11:25 Dose: Not Given Insulin Human Lispro (Humalog) 10 unit SQ AC [facility] Last Admin: 06/07/17 11:26 Dose: Not Given Lactobacillus Rhamnosus (Culturelle) 1 cap PO BID [facility] Last Admin: 06/07/17 11:10 Dose: 1 cap Mupirocin (Bactroban Oint 2%) 1 dose TOPICAL UD PRN PRN Reason: DRESSING CHANGES Ondansetron HCl (Zofran) 4 mg IV Q6HP PRN PRN Reason: Nausea And Vomiting Last Admin: 06/05/17 19:30 Dose: 4 mg Oxandrolone (Oxandrin) 5 mg PO BID [facility] Last Admin: 06/07/17 11:30 Dose: 5 mg Pantoprazole Sodium (Protonix) 40 mg PO QAMAC [facility] Last Admin: 06/07/17 11:10 Dose: 40 mg Senna (Senokot) 2 tab PO HSP PRN PRN Reason: Constipation Sodium Chloride (Saline Flush) 10 ml IV Q8 [facility] Last Admin: 06/07/17 13:24 Dose: 10 ml Vancomycin HCl (Vancomycin Per Pharmacy) 1 order IV [facility] [place] Medical - PN: A/P (1) Diabetic foot ulcer Status: Acute Assessment and plan: with associated cellulitis. Improvement continues, with less edema. White count is normalized. Erythema mildly improved. Still remains at risk for limb loss, low pre-albumin and hyperglycemia (though that is improving). -Continue vancomycin and Zosyn -PICC placed in anticipation of prolonged need for IV antibiotics -Wound care consultation/evaluations -Continue to elevate extremity -Continue dressing changes -On oxandrolone to counter nutritional status Current Visit: Yes (2) Hyperglycemia due to type 2 diabetes mellitus Problem details: Chronic malnutrition. Low pre albumin Nutrition / Dietary consult and Diabetic Teaching. Status: Acute Assessment and plan: Glucose on labs 330 this morning, had been <180 during day yesterday. Only had cucumber for snack at HS. Subsequntly improved later this morning. On lantus, standing mealtime insulin and SSI. May need to adjust to a carb based time insulin regimen in addition to her Lantus and sliding scale. Don't fully understand why lab glucose was elevated in early AM. -Continue with twice a day Lantus -Continue mealtime lispro, follow trends today. -Continue additional sliding scale lispro for correction Current Visit: No (3) Diabetic peripheral neuropathy Status: Acute Assessment and plan: Stable,continue gabapentin Change to PO supplemental pain medication for acute right foot pain with IV for breakthrough Current Visit: Yes
[2017-06-07] MEDS: HYDROmorphone 2 MG/ML SYRINGE IV SCH (22:11)
[2017-06-07] MEDS ORDERED: HYDROmorphone 2 MG TABLET ONE (22:19)
[2017-06-08] MEDS: PIPERACILLIN SODIUM/TAZOBACTAM 3.375 GM in DEXTROSE 5% IN WATER 50 ML IV SCH ×3 (00:04→11:52)
[2017-06-08] MEDS: HYDROmorphone 2 MG TABLET PO PRN ×3 (03:51→15:46)
[2017-06-08] MEDS: HYDROmorphone 2 MG/ML SYRINGE IV PRN ×2 (05:33→08:08)
[2017-06-08] MEDS: GABAPENTIN 400 MG CAPSULE PO SCH ×2 (05:36→14:59)
[2017-06-08] MEDS: 0.9 % SODIUM CHLORIDE 10 ML SYRINGE IV SCH ×2 (05:58→17:16)
[2017-06-08 06:51] LABS: Basophils # (Auto) 0 K/mcL (0.0-0.3); Basophils % (Auto) 0.3 % (0.0-2.0); Eosinophils # (Auto) 0.2 K/mcL (0.0-0.7); Eosinophils % (Auto) 2.1 % (0.0-7.0); Granulocytes % (Auto) 65.4 % (38.0-78.0); Lymphocytes # (Auto) 2.8 K/mcL (1.5-4.8); Lymphocytes % (Auto) 25.3 % (15.5-49.0); Mean Cell Volume 91.2 fL (80.0-100.0); Mean Corpuscular HGB Conc 33.9 g/dL (31.0-36.0); Mean Corpuscular Hemoglobin 30.9 pg (26.0-34.0); Monocytes # (Auto) 0.8 K/mcL (0.1-0.9); Monocytes % (Auto) 6.9 % (1.0-12.0); Platelet Count 339 K/mcL (140-440); RBC 3.53 M/mcL (4.00-5.20); Red Cell Distribution Width 12.5 % (11.5-14.5)
[2017-06-08 07:24] LABS: Blood Urea Nitrogen 12 mg/dl (6-20)
[2017-06-08] MEDS: PANTOPRAZOLE 40 MG TABLET PO SCH (08:08)
[2017-06-08] MEDS: INSULIN LISPRO 1 UNIT/0.01 ML UNIT SQ SCH ×4 (08:09→12:23)
[2017-06-08] MEDS ORDERED: INSULIN GLARGINE, HUMAN 1 UNIT/0.01 ML SQ SCH (09:00)
[2017-06-08] MEDS: ESCITALOPRAM 20 MG TABLET PO SCH (09:41)
[2017-06-08] MEDS: DOCUSATE SODIUM 100 MG CAPSULE PO SCH (09:41)
[2017-06-08] MEDS: VANCOMYCIN 1,000 MG in 0.9 % SODIUM CHLORIDE 250 ML IV SCH (09:44)
[2017-06-08] MEDS: ENOXAPARIN 40 MG/0.4 ML SYRINGE SQ SCH (09:44)
[2017-06-08] MEDS: LACTOBACILLUS 1 CAPSULE PO SCH (10:06)
[2017-06-08] MEDS: OXANDROLONE 2.5 MG TABLET PO SCH (11:46)
--- NOTE | 2017-06-08 12:22 | Discharge Summary ---
Medical - DS: Prov Patient information: Note initiated : 06/08/17 at 12:14 pm Service Date, if different from initiated Date: [] Patient: Jeanette Gonzalez 41 y/o F admitted on 06/03/17 for Rt Foot Pain/Draining, Diabetic Foot Wound w/ Ulcer. Date of admission: 06/03/17 21:08 Discharge date: 06/08/17 Primary care physician: John Chong Attending physician on admission: Yelitza Soares Consults: 06/04/17 11:58 Consult to Physician [CONS] Routine Comment: recommendations on healing big toe ulcer right Consulting Provider: Skyler Nichols Reason For Exam: Physician to Consult Discharging clinician: Yelitza Soares Medical - DS: Meds - Discharge Medications Prescriptions: cefTRIAXone [Rocephin] 1 gm IV Q24H #10 vial Gabapentin 800 mg PO TID #90 tab Insulin Aspart [Novolog] See Protocol SQ ACHS #1 each Insulin Glargine,Hum.rec.anlog [Lantus Solostar] 50 unit SQ BID #1 each Insulin Lispro [Humalog] 10 unit SQ AC #1 each Oxandrolone [Oxandrin] 5 mg PO BID #120 tablet Active and Home Medications: Home Medications Cyclobenzaprine HCl 10 mg PO BID 02/08/17 [History Confirmed 06/04/17 Last Taken 05/31/17] Gabapentin 600 mg PO QIDP 02/08/17 [History Confirmed 06/04/17 Last Taken 08:00] Insulin Aspart [Novolog] See Protocol SQ ACHS 02/08/17 [History Confirmed Last Taken 06/03/17] Insulin Glargine,Hum.rec.anlog [Lantus Solostar] 45 unit SQ BID 02/08/17 [ History Confirmed 06/04/17 Last Taken 06/03/17 08:00] traMADol [Ultram] 50 mg PO Q6HP PRN 02/08/17 [History Confirmed 06/04/17 Last Taken 06/03/17 11:00] HYDROcodone/APAP 10/325MG [[place] 10/325Mg] 1 tab PO Q4H PRN 04/20/17 [History Confirmed 06/04/17 Last Taken 05/23/17] traZODone HCL [Desyrel] 50 mg PO HS 04/20/17 [History Confirmed 06/04/17 Last Taken 06/02/17 21:00] Escitalopram [Lexapro] 20 mg PO DAILY 06/04/17 [History Confirmed 06/04/17 Last Taken 06/03/17] Medical - DS: Hosp Hospital course: The patient is a 41-year-old female with history of diabetes, who presented to the emergency department with worsening pain and edema of her right foot. Approximate one week earlier she had noted a lesion on the plantar aspect of her right great toe. She been seen in urgent care, had been receiving IV ceftriaxone. This was worsening, she was seen urgently on Monday, eventually taken to the operating room for debridement, with surgical wounds on the distal foot and proximal lateral foot. This occurred at [facility].. No abscess or evidence of osteomyelitis was found. She was discharged from [facility] on Monday on Keflex. She returns to the ED on Monday with worsening pain and edema of the foot. She is admitted and treated for ongoing cellulitis and diabetic foot infection. She was admitted, started on vancomycin and cephalexin. She was seen in consultation by wound care, Dr. Nichols. Her foot was kept elevated. She continued to have swelling and erythema, repeat CT showed no evidence of abscess only cellulitic and edematous changes. A few the sutures were removed from the distal incision by Dr. Jeronimo Gramajo, she continued to have some serosanguineous drainage but improvement in the edema of her foot. Prealbumin was low at 14, she was started on Oxandrin to improve nutritional status. Glucose was uncontrolled on admission, her insulin regimen was adjusted , in addition to twice a day Lantus, she has standing lispro at mealtimes as well as sliding scale. Multidisciplinary rounds were held. A plan was developed for the patient to be discharged, once daily IV antibiotics to ceftriaxone along with once daily dressing changes and close follow-up in the wound care clinic. As in addition to the surgical wounds and cellulitic changes on the dorsum of the foot ( improving), a neuropathic ulcer on the plantar aspect of her right great toe. Patient had significant pain associated with her incisions and wound. She was using intravenous hydromorphone for pain control. Attempts were made to convert to oral, with less of success. However as she has a pain contract with her primary care provider, she'll be discharged on her usual pain regimen, no further pain medications are prescribed at discharge. Patient was counseled extensively on the need for smoking cessation for wound healing as well as good diabetic control, she was advised on several occasions that without these measures she is at high risk for loss of limb. Discharge diagnosis: Diabetic foot ulcer with cellulitis Secondary discharge diagnosis: Type 2 diabetes mellitus, uncontrolled Malnutrition of moderate degree with pre-albumin of 14 Diabetic peripheral neuropathy Hyperlipidemia Chronic pain - Time Spent with Patient Total time spent providing and/or coordinating discharge services: Greater than 30 minutes Medical - DS: Exam - Constitutional Vitals: Vital Signs Temp Pulse Resp BP Pulse Ox 06/08/17 11:12 97.3 F 14 121/78 96 06/08/17 07:12 97.3 F 14 118/77 97 06/08/17 04:00 98.4 F 92 H 14 106/66 95 06/08/17 00:00 98.0 F 96 H 14 126/80 97 06/07/17 20:00 97.9 F 98 H 14 116/76 97 06/07/17 16:00 98.5 F 16 120/76 95 Intake and Output 06/07/17 06/08/17 06/08/17 21:59 05:59 13:59 Intake Total 450 / 450 1440 / 1440 540 / 540 Output Total 1450 / 1450 1000 / 1000 500 / 500 Balance -1000 / -1000 440 / 440 40 / 40 Intake: IV 50 / 50 300 / 300 300 / 300 Zosyn 3.375 gm In 50 / 50 50 / 50 50 / 50 Dextrose 5% in Water 50 ml @ 100 mls/hr IV Q6H CRHISTINA Rx#:[id number] Vancomycin 1,000 mg In 250 / 250 250 / 250 Sodium Chloride 0.9% 250 ml @ 250 mls/hr IV Q12H CHRISTINA Rx#:[id number] Oral 400 / 400 1140 / 1140 240 / 240 Output: Void Amount 1450 / 1450 1000 / 1000 500 / 500 Other: Meal Dinner (2) boxes of ceral Breakfast Percent of Meal Consumed 100% 100% 100% Feeding Ability Independent Independent Independent # Voids 2 Weight 150 lb - Other Additional findings: General: In bed in no acute distress Chest: Clear to auscultation, respirations unlabored Cardiovascular: Regular rate and rhythm, no peripheral edema except as noted in dorsum of right foot Abdomen: Soft, nontender, active bowel sounds Musculoskeletal: Right foot with surgical wounds with minor drainage from the distal wound. Edema dorsum of foot is improved. Dusky erythema continues to fade. Ulceration on the plantar aspect of the right great toe, unchanged. Neuro: Awake, alert, other than neuropathic changes in the extremities, exam is nonfocal. Medical - DS: Data Procedures and tests throughout hospitalization: PICC line placement CT of foot IMPRESSION: 1. Moderate focal cellulitis or edema in the dorsal subcutaneous soft tissues and fascia of the metatarsal region. No evidence of foreign body, discrete abscess or osteomyelitis 2. Moderate hallux valgus deformity and hammertoe deformities first through fifth digits. Labs on day of discharge: Labs from last 24 hours 06/08/17 06/08/17 05:38 05:38 WBC 11.1 H RBC 3.53 L Hgb 10.9 L Hct 32.2 L MCV 91.2 MCH 30.9 MCHC 33.9 RDW 12.5 Plt Count 339 MPV 6.5 L Gran % 65.4 Lymph % (Auto) 25.3 [place] % (Auto) 6.9 Eos % (Auto) 2.1 Baso % (Auto) 0.3 Gran # 7.2 Lymph # (Auto) 2.8 [place] # (Auto) 0.8 Eos # (Auto) 0.2 Baso # (Auto) 0 Sodium 133 Potassium 4.0 Chloride 96 Carbon Dioxide 26 Anion Gap 11.0 BUN 12 Creatinine 0.7 GFR Calculation 108 Glucose 241 H Calcium 8.6 Medical - DS: A/P - Patient/Caregiver Discharge Instructions Activity: as instructed (only weight bear on heel of right foot, use crutches to ambulate) Diet: Consistent Carbohydrate Additional Instructions: Do not resume smoking Check your blood glucoses before meals and at bedtime, record readings and bring them for follow-up appointments If your blood glucoses are consistently above 200 call your primary care to help adjust insulin Return daily for dressing changes and IV antibiotic infusion Follow-up with Dr. Nichols in the wound care clinic on Monday as scheduled Follow up with nurse educator as scheduled Other Amb Orders: Wound Care Instructions Location: Determined By Patient - Problem Maintenance (1) Diabetic foot ulcer Status: Acute Qualifiers: Diabetic foot ulcer location: toe Diabetes mellitus type: type 2 Laterality: right Non-pressure ulcer stage: unspecified non-pressure ulcer stage Qualified Code(s): E11.621 - Type 2 diabetes mellitus with foot ulcer; L97.519 - Non-pressure chronic ulcer of other part of right foot with unspecified severity (2) Hyperglycemia due to type 2 diabetes mellitus Status: Acute Comment: Chronic malnutrition. Low pre albumin Nutrition / Dietary consult and Diabetic Teaching. Qualifiers: Diabetes mellitus terminal operations supervisor insulin use: with terminal operations supervisor use Qualified Code( s): E11.65 - Type 2 diabetes mellitus with hyperglycemia; Z79.4 - FPC ( current) use of insulin (3) Diabetic peripheral neuropathy Status: Acute - Follow up Plan Follow up with: Skyler Nichols MD [Physician] - 06/12/17 8:00 am (Please check in at 7:45 am for this appointment.) John Chong [Primary Care Provider] - Disposition: Home, Self-Care Prognosis: Fair Rehab Potential: Fair Overall status at discharge: patient is not back to baseline
--- NOTE | 2017-06-08 12:25 | General Surgery Progress Note ---
Subjective Narrative: Note initiated : 06/08/17 at 12:21 pm Service Date, if different from initiated Date: [] Patient: Jeanette Gonzalez 41 y/o F admitted on 06/03/17 for Rt Foot Pain/Draining, Diabetic Foot Wound w/ Ulcer. Chief Complaint: [] Uneventful night. No over nite drainage from this wound Objective Temp Pulse Resp BP Pulse Ox 97.3 F 92 H 14 121/78 96 06/08/17 11:12 06/08/17 04:00 06/08/17 11:12 06/08/17 11:12 06/08/17 11:12 AVSS. No changes MARYSOL. Ambulating with crutches and weight bearing on heel Right foot. L/E. Resolving inflammatory changes dorsal surface of right foot Labs reviewed: sugars and WBC gradually trending sown, Med Line laced yesterday. Patient does NOT want to leave this area. She lives in [place] and agrees to come to [facility] for IV antibiotics, dressing change and F/U at wound clinic for further management. - Additional Data Intake & Output - Last 24 hours: Intake & Output 06/06/17 06/07/17 06/08/17 06/09/17 05:59 05:59 05:59 05:59 Intake Total 3000 / 3000 1420 / 1420 2480 / 2480 540 / 540 Output Total 6050 / 6050 4550 / 4550 5250 / 5250 500 / 500 Balance -3050 / -3050 -3130 / -3130 -2770 / -2770 40 / 40 Weight 148 lb 150 lb 8 oz 150 lb - Labs 06/08/17 05:38 06/08/17 05:38 Diabetes panel 06/08/17 Range/Units 05:38 Sodium 133 (133-145) mmol/L Potassium 4.0 (3.3-5.1) mmol/L Chloride 96 (96-108) mmol/L Carbon Dioxide 26 (22-30) mmol/L BUN 12 (6-20) mg/dl Creatinine 0.7 (0.6-1.1) mg/dl Glucose 241 H (70-105) mg/dL Calcium 8.6 (8.6-10.4) mg/dl Calcium panel 06/08/17 Range/Units 05:38 Calcium 8.6 (8.6-10.4) mg/dl Pituitary panel 06/08/17 Range/Units 05:38 Sodium 133 (133-145) mmol/L Potassium 4.0 (3.3-5.1) mmol/L Chloride 96 (96-108) mmol/L Carbon Dioxide 26 (22-30) mmol/L BUN 12 (6-20) mg/dl Creatinine 0.7 (0.6-1.1) mg/dl Glucose 241 H (70-105) mg/dL Calcium 8.6 (8.6-10.4) mg/dl Adrenal panel 06/08/17 Range/Units 05:38 Sodium 133 (133-145) mmol/L Potassium 4.0 (3.3-5.1) mmol/L Chloride 96 (96-108) mmol/L Carbon Dioxide 26 (22-30) mmol/L BUN 12 (6-20) mg/dl Creatinine 0.7 (0.6-1.1) mg/dl Glucose 241 H (70-105) mg/dL Calcium 8.6 (8.6-10.4) mg/dl Assessment and Plan (1) Hyperglycemia due to type 2 diabetes mellitus Problem details: Chronic malnutrition. Low pre albumin Nutrition / Dietary consult and Diabetic Teaching. Status: Acute Assessment and plan: Ordered Oxandrin for patient. Dietary / Nutrition consult ordered. Current Visit: No (2) Cellulitis and abscess of foot Problem details: S/P I/D of abxcess with surgical debridement about a week ago at [facility]. Plan: On going wound care and check non invasive vascular studies. TBI and Sensilase. Status: Acute Assessment and plan: Soft tissue edema over dorsal surface of right foot, NO abscess. Labs improving. WBC and Blood sugars trending down. Plan: Local wound care, Repeat Labs in AM. Counselled at length ( > 10 mts > about smoking cessation Reassess tomorrow AM Current Visit: Yes - Time Spent With Patient Total time spent is greater than 50% in coordination of care (as documented) at patient's floor/unit and/or counseling patient: Assessment: Seen on rounds this morning with Hospitalist Loretta Higgins product management specialist and REBEKAH Jon shelving supervisor arrangements discussed at length along with EXPECTED plan of treatment. Patient understands and agrees. Plan: OK to discharge home . Dressing changes and IV antibiotics at [facility] as out patient NO SMOKING Diabetes Education. OUT patient f/u at wound care. ALTAGRACIA, Versus T COM and debridement of neuropathic DFU Right FIRST toe Consider out patient HBO, subject to insurance approval. 25 - 35 minutes
[2017-06-08] MEDS ORDERED: cefTRIAXone 1 GM in DEXTROSE 5% IN WATER 50 ML IV SCH (14:00)
== END 2017-06-08 16:35 | disposition home or self-care (01) | DRG 638 ==
LOC: ED 17:07 → MEDSUR 21:08
PROVIDERS: ADMIT Internal Medicine; ATTEND Internal Medicine

== ENCOUNTER 2017-07-22 15:16 | Inpatient (IN) ==
[~2017-07-22 15:16] MED LIST: NALOXONE HCL 0.4 MG/ML VIAL IV ONE
[2017-07-22] MEDS ORDERED: 0.9 % SODIUM CHLORIDE 1,000 ML IV ONE ×4 (16:01→20:02)
[2017-07-22] MEDS ORDERED: ONDANSETRON 4 MG/2 ML VIAL IV ONE ×2 (16:03→18:49)
[2017-07-22] MEDS ORDERED: HYDROmorphone 2 MG/ML SYRINGE IV SCH (16:15)
[2017-07-22 16:21] LABS: Basophils # (Auto) 0 K/mcL (0.0-0.3); Basophils % (Auto) 0.1 % (0.0-2.0); Eosinophils # (Auto) 0.2 K/mcL (0.0-0.7); Eosinophils % (Auto) 1.2 % (0.0-7.0); Granulocytes % (Auto) 87.9 % (38.0-78.0); Lymphocytes # (Auto) 1.3 K/mcL (1.5-4.8); Lymphocytes % (Auto) 6.9 % (15.5-49.0); Mean Cell Volume 91.6 fL (80.0-100.0); Mean Corpuscular HGB Conc 33.9 g/dL (31.0-36.0); Monocytes # (Auto) 0.7 K/mcL (0.1-0.9); Monocytes % (Auto) 3.9 % (1.0-12.0); Platelet Count 280 K/mcL (140-440); Red Cell Distribution Width 12.9 % (11.5-14.5)
[2017-07-22] MEDS ORDERED: INSULIN REGULAR, HUMAN 1 UNIT/0.01 ML UNIT IV ONE (16:47)
[2017-07-22 16:48] LABS: ALT/SGPT 66 U/l (0-40); Albumin 3.7 gm/dL (3.2-5.2); Alkaline Phosphatase 180 U/L (39-117); Blood Urea Nitrogen 11 mg/dl (6-20); C-Reactive Protein 7.6 mg/dl (0.0-0.8)
[2017-07-22 16:51] LABS: Estimated Average Glucose(eAG) 278 mg/dL; Hemoglobin A1C 11.3 % HGB (4.0-6.0)
[2017-07-22] MEDS ORDERED: PIPERACILLIN SODIUM/TAZOBACTAM 3.375 GM in DEXTROSE 5% IN WATER 50 ML IV ONE (17:08)
[2017-07-22] MEDS ORDERED: VANCOMYCIN 1,000 MG in 0.9 % SODIUM CHLORIDE 250 ML IV ONE (17:08)
[2017-07-22] MEDS ORDERED: INSULIN REGULAR, HUMAN 50 UNIT in 0.9 % SODIUM CHLORIDE 99.5 ML IV ONE (17:09)
[2017-07-22] MEDS: HYDROmorphone 2 MG/ML SYRINGE IV PRN ×2 (17:10→17:58)
[2017-07-22] MEDS ORDERED: INSULIN REGULAR, HUMAN 50 UNIT in 0.9 % SODIUM CHLORIDE 99.5 ML IV SCH (17:15)
--- NOTE | 2017-07-22 17:17 | Emergency Department Note ---
Lower Extremity Injury HPI - General Chief Complaint: Extremity Injury, Lower Stated Complaint: Foot pain Time Seen by Provider: 07/22/17 15:26 Source: patient Mode of arrival: ambulatory Limitations: no limitations - History of Present Illness HPI Narrative: 41-year-old female with chronic uncontrolled diabetes mellitus comes in with right foot pain exacerbation today. Severe pain for the last 4 hours after walking around and seeing some yard sales. She is followed by wound care Dr. Nichols for diabetic foot ulcers in that foot and was last seen this last week with upcoming appointment 5 days. It is red and warm today increasing in severity despite taking adequate pain medicine. She is not on antibiotics. Has a temperature of 101.6 - Related Data Home Medications Medication Instructions Recorded Confirmed Cyclobenzaprine HCl 10 mg PO TID 02/08/17 07/22/17 traMADol [Ultram] 50 mg PO Q6HP PRN 02/08/17 07/22/17 HYDROcodone/APAP 10/325MG [[place] 1 tab PO Q4H PRN 04/20/17 07/22/17 10/325Mg] traZODone HCL [Desyrel] 50 mg PO HS 04/20/17 07/22/17 Escitalopram [Lexapro] 20 mg PO DAILY 06/04/17 07/22/17 Previous Rx's Medication Instructions Recorded Gabapentin 800 mg PO TID #90 tab 06/08/17 Insulin Aspart [Novolog] See Protocol SQ ACHS #1 each 06/08/17 Insulin Glargine,Hum.rec.anlog 50 unit SQ BID #1 each 06/08/17 [Lantus Solostar] Insulin Lispro [Humalog] 10 unit SQ AC #1 each 06/08/17 Oxandrolone [Oxandrin] 5 mg PO BID #120 tablet 06/08/17 Allergies Allergy/AdvReac Type Severity Reaction Status Date / Time ketorolac [From Toradol] AdvReac Intermediate Vomiting Verified 07/22/17 15:22 metoclopramide [From Reglan] AdvReac Intermediate Shakiness Verified 07/22/17 15 :22 morphine AdvReac Intermediate Headache Verified 07/22/17 15:22 NSAIDS (Non-Steroidal AdvReac Intermediate Vomiting Verified 07/22/17 15:22 Anti-Inflamma promethazine [From Phenergan] AdvReac Intermediate Shakiness Verified 07/22/17 15:22 Review of Systems All systems ED: reviewed and negative except as stated. Past Medical History - Past Medical History Attestation: Yes: The following information was validated with the patient. Medical history: Reports: diabetes (With ulcers and significant neuropathy), other (History of wounds, flores, injuries, migraines. 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 Normocephalic atraumatic. Conjunctive with mild injection from crying, sclerae nonicteric. No nasal discharge or congestion. Oropharynx is pink and moist. Neck is supple without lymphadenopathy or thyromegaly. Heart is regular rate and rhythm no murmurs appreciated. Lungs are clear to auscultation bilaterally without wheezes rales rhonchi or respiratory distress. Abdomen soft nontender nondistended. Normal bowel sounds. +2 radial pulse. Exam of the right foot shows edematous erythematous lower slasher tender along the fifth metatarsal and phalanx-plantar surface shows a half-dominguez shaped incision/wound 2.5 x 1 cm with some serous drainage-again very tender worst at the wound site. She is able to move her toes and ankle however limited by pain. She is alert oriented able to answer questions appropriately. No dysarthria or tremor - General Limitations: no limitations Course Vital Signs Temperature 101.6 F H 07/22/17 15:17 Respiratory Rate 22 07/22/17 15:17 Blood Pressure 148/113 07/22/17 15:17 Pulse Oximetry (%) 100 07/22/17 15:17 Temperature 99.6 F H 07/22/17 18:03 Pulse Rate 121 H 07/22/17 18:00 Respiratory Rate 19 07/22/17 18:00 Blood Pressure 183/162 07/22/17 16:01 Pulse Oximetry (%) 97 07/22/17 18:00 Extremity Injury, Lower - Lab Data Lab results reviewed: Yes I reviewed the patient's lab results. Result diagrams: 07/22/17 16:07 07/22/17 16:07 Lab Results 07/22/17 07/22/17 07/22/17 Range/Units 16:07 16:07 16:08 WBC 18.8 H (4.5-11.0) K/mcL RBC 3.90 L (4.00-5.20) M/mcL Hgb 12.1 (12.0-15.0) g/dL Hct 35.7 L (36.0-48.0) % MCV 91.6 (80.0-100.0) fL MCH 31.0 (26.0-34.0) pg MCHC 33.9 (31.0-36.0) g/dL RDW 12.9 (11.5-14.5) % Plt Count 280 (140-440) K/mcL MPV 7.5 (7.4-10.4) fL Gran % 87.9 H (38.0-78.0) % Lymph % (Auto) 6.9 L (15.5-49.0) % [place] % (Auto) 3.9 (1.0-12.0) % Eos % (Auto) 1.2 (0.0-7.0) % Baso % (Auto) 0.1 (0.0-2.0) % Gran # 16.5 H (1.8-8.0) K/mcL Lymph # (Auto) 1.3 L (1.5-4.8) K/mcL [place] # (Auto) 0.7 (0.1-0.9) K/mcL Eos # (Auto) 0.2 (0.0-0.7) K/mcL Baso # (Auto) 0 (0.0-0.3) K/mcL Sodium 127 L (133-145) mmol/L Potassium 5.0 (3.3-5.1) mmol/L Chloride 87 L (96-108) mmol/L Carbon Dioxide 23 (22-30) mmol/L Anion Gap 17.0 H (8-16) BUN 11 (6-20) mg/dl Creatinine 1.1 (0.6-1.1) mg/dl GFR Calculation 62 Glucose 602 H* (70-105) mg/dL Hemoglobin A1c 11.3 H (4.0-6.0) % HGB Estim Average Glucose 278 mg/dL Calcium 9.1 (8.6-10.4) mg/dl Total Bilirubin 0.6 (0.0-1.0) mg/dL AST 167 H (0-37) U/l ALT 66 H (0-40) U/l Alkaline Phosphatase 180 H (39-117) U/L C-Reactive Protein 7.6 H (0.0-0.8) mg/dl Total Protein 7.4 (5.9-8.4) gm/dL Albumin 3.7 (3.2-5.2) gm/dL Globulin 3.7 (2.2-3.7) gm/dL Albumin/Globulin Ratio 1.0 (1.0-2.3) Procalcitonin 1.56 (<0.10) ng/mL - Radiology Data Radiology results reviewed: Yes I reviewed the patient's radiology results. X-ray of the right foot shows soft tissue edema but no evidence of osteomyelitis Disposition Pt seen by CATH LAB TECHNOLOGIST/PA only: No Clinical Impression: Cellulitis and abscess of foot, Hyperosmolar non-ketotic state in patient with type 2 diabetes mellitus, Hyponatremia, Elevated liver enzymes Summary: She was initially seen for her right foot. While working up we gave her Dilaudid and Zofran and a 10 unit insulin regular Laboratory shows hyperglycemia with hyperosmolar ketosis. Started insulin drip. Also noted increased inflammatory markers including white blood cell count concerning for cellulitis. After blood cultures done started vancomycin and Zosyn. Her liver enzymes were also noted to be up Discussed with Dr. Jennifer Mondragon our hospitalist who agreed to accept the patient for further care and evaluation as inpatient Disposition: Xfer As Inpt ([facility]) Condition: Serious Referrals: John Chong [Primary Care Provider] -
[2017-07-22] MEDS ORDERED: INSULIN REGULAR, HUMAN 1 UNIT/0.01 ML UNIT ONE (17:18)
[2017-07-22] MEDS ORDERED: NALOXONE HCL 0.4 MG/ML VIAL IV ONE ×2 (18:30→20:03)
[2017-07-22] MEDS ORDERED: POTASSIUM CHLORIDE 20 MEQ in DEXTROSE 5% IN WATER 250 ML IV ONE (18:34)
--- NOTE | 2017-07-22 18:34 | XRay Report ---
CLINICAL INFORMATION: Erythematous swelling question osteomyelitis and cellulitis COMPARISON: None. FINDINGS: Mild hallux valgus and metatarsus abductus deformities appreciated. No specific radiographic evidence of osteomyelitis. Minimal degenerative change seen in the second and fifth interphalangeal joints. The fifth DIP is fused. Moderate diffuse soft tissue swelling is noted throughout the foot. IMPRESSION: Moderate diffuse soft tissue swelling compatible with cellulitis. No evidence of osteomyelitis. Other minor chronic findings as described Interpreted and Authenticated by: Jeremy Tuttle 07/22/17
[2017-07-22] MEDS ORDERED: ONDANSETRON 4 MG/2 ML VIAL ONE (18:37)
[2017-07-22] MEDS ORDERED: LINEZOLID 600 MG/300 ML BAG IV ONE (19:13)
--- NOTE | 2017-07-22 19:39 | Internal Med History&Physical ---
Medical - H&P: [facility] Patient information: Note initiated : 07/22/17 at 7:32 pm Service Date, if different from initiated Date: [] Patient: Jeanette Gonzalez a 41 y/o F admitted on for Foot pain. Chief Complaint: Sepsis/hyperglycemia History of present illness: Ms. Gonzalez is a 41 year old F With a history of uncontrolled type 1 diabetes mellitus who presented to the ER initially with right foot pain. She has a history of chronic right foot wound that required debridement at [facility] in May. She was admitted to [facility] several days later (06/03/17) for failure of outpatient cephalexin to treat her wound infection. At that time she was started on Oxandrin to improve her nutritional status. She was ultimately discharged after 5 days of vancomycin and Zosyn on IV ceftriaxone. She has not been on any oral antibiotics per ED report and has been trying to quit smoking and is down to 1 cigarette a day. She has follow-up with Dr. Nichols later this week. Today she was out yard sailing and had worsening right foot pain despite taking her usual amount of pain medications. When seen in the ED she had a fever of 101.6 and was resumed on vancomycin and Zosyn for presumed foot infection. She was found to be hyperglycemic in the 600s and was treated with 10 units of insulin and then start on insulin drip. Her pain was treated with a total of 3 mg of Dilaudid. While in the ED, she had an episode of decreased level of consciousness associated with hypoxia and hypotension. Per the ED doctor and bedside nurse, patient stated she was feeling itchy and that she couldn't breathe. Her vancomycin was stopped for concern of allergic reaction. She was incontinent of urine and stared off into space for a short period of time. She had no seizure-like activity. Her saturations dropped to the 80s and responded to 5 L of O2; she developed tachycardia to the 150s. She was given Narcan and her tachycardia improved to the 120s with saturations improving to 100% on 5 L. She still has a soft blood pressure of 80 and is getting her third liter of fluid now. ROS unobtainable: due to mental status Medical - H&P: PMH Medical history: #Insulin-dependent diabetes mellitus diagnosed in 2004. She states she is a type I. She has a history of HHS and peripheral neuropathy #Chronic pain on chronic opiates. #Hyperlipidemia #Chronic headache #HSV #Reported hypothyroidism in the past. 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 She recently moved to the [place] from [place]. She states she is smoking about one cigarette daily. No alcohol use. She denies any recreational drug use. Medical - H&P: Meds Home Medications Medication Instructions Recorded Confirmed Type Cyclobenzaprine HCl 10 mg PO TID 02/08/17 07/22/17 History traMADol [Ultram] 50 mg PO Q6HP PRN 02/08/17 07/22/17 History HYDROcodone/APAP 10/325MG [Cobb 1 tab PO Q4H PRN 04/20/17 07/22/17 History 10/325Mg] traZODone HCL [Desyrel] 50 mg PO HS 04/20/17 07/22/17 History Escitalopram [Lexapro] 20 mg PO DAILY 06/04/17 07/22/17 History Gabapentin 800 mg PO TID #90 tab 06/08/17 07/22/17 Rx Insulin Aspart [Novolog] See Protocol SQ ACHS #1 each 06/08/17 07/22/17 Rx Insulin Glargine,Hum.rec.anlog 50 unit SQ BID #1 each 06/08/17 07/22/17 Rx [Lantus Solostar] Insulin Lispro [Humalog] 10 unit SQ AC #1 each 06/08/17 07/22/17 Rx Oxandrolone [Oxandrin] 5 mg PO BID #120 tablet 06/08/17 07/22/17 Rx Allergies Allergy/AdvReac Type Severity Reaction Status Date / Time ketorolac [From Toradol] AdvReac Intermediate Vomiting Verified 07/22/17 15:22 metoclopramide [From Reglan] AdvReac Intermediate Shakiness Verified 07/22/17 15 :22 morphine AdvReac Intermediate Headache Verified 07/22/17 15:22 NSAIDS (Non-Steroidal AdvReac Intermediate Vomiting Verified 07/22/17 15:22 Anti-Inflamma promethazine [From Phenergan] AdvReac Intermediate Shakiness Verified 07/22/17 15:22 Medical - H&P: Exam - Constitutional Vitals: Temp Pulse Resp BP Pulse Ox 99.6 F H 116 H 12 85/74 100 07/22/17 18:03 07/22/17 19:26 07/22/17 19:26 07/22/17 19:26 07/22/17 19:26 General: Somnolent, awakens to voice and mumbles answers. Falls back asleep during the evaluation. HEENT: Normocephalic atraumatic. PERRLA. EOMI. Conjunctiva are injected. Sclerae are anicteric Neck: Is supple without lymphadenopathy or thyromegaly CV: Tachycardia with sinus tach, monitor 120. No murmurs. Pulmonary: Lungs are clear to auscultation bilaterally. She has some upper airway congestion that clears with cough. Abdomen: Soft, nondistended and nontender. Hypoactive bowel tones. Extremities: No clubbing or cyanosis. No edema. Her right foot has a healing superficial ulcer on the dorsal aspect of her foot. This has some serosanguineous drainage. On the plantar aspect, she has 2 wounds that have a pink base and some bloody drainage. The foot is warm and mildly erythematous. Neuro: Somnolent. Able to give some history. She falls commands with all 4 extremities. She has no focal deficits. Psych: Unable to assess Medical - H&P: Reslt - Labs CBC & Chem 7: 07/22/17 16:07 07/22/17 16:07 Labs: Short CBC 07/22/17 Range/Units 16:07 WBC 18.8 H (4.5-11.0) K/mcL Hgb 12.1 (12.0-15.0) g/dL Hct 35.7 L (36.0-48.0) % Plt Count 280 (140-440) K/mcL BMP 07/22/17 16:07 Sodium 127 L Potassium 5.0 Chloride 87 L Carbon Dioxide 23 BUN 11 Creatinine 1.1 Glucose 602 H* Calcium 9.1 Liver Function 07/22/17 Range/Units 16:07 Total Bilirubin 0.6 (0.0-1.0) mg/dL AST 167 H (0-37) U/l ALT 66 H (0-40) U/l Alkaline Phosphatase 180 H (39-117) U/L Albumin 3.7 (3.2-5.2) gm/dL - EKG Data -: EKG Interpreted by Myself (sinus tachycardia with a rate of ~120-130), EKG Reviewed by Myself Medical - H&P: A/P - Narrative A/P Narrative: #sepsis -with T 101.6, WBC 18.8 on admission, PCT 1.56 -unclear source. Possibly 2/2 her foot wound but does not seem that severe -?allergy to vancomycin w episode of decreased consciousness and itching. Not awake enough to take po Zyvox and IV Zyvox unavailable. -currently doubt FIREMAN infection given initial neuro status on presentation Plan: 1. f/u BC. Admit to ICU 2. Check ESR. CT of foot. Trend PCT 3. Cont Zosyn; add clindamycin for MRSA coverage. 4. UA w C&S 5. If worsens, consider LP #episode of decreased consciousness, hypotension, itching w continued obtundation -hypotension is fluid responsive thus far; improved w Narcan. -ddx: sepsis vs over-narcotization vs allergic reaction vs substance abuse Plan: 1. 1L IVF to complete 4th liter. If does not improve, will place central line and start pressors. Consider stress dose steroids. 2. No further vancomycin. 3. Narcan PRN. If recurs, consider Narcan gtt. Hold dilaudid. 4. f/u UDS. Check ASA, Tylenol, EtoH #acute hypoxic respiratory failure -associated with above event -CXR shows vague bibasilar infiltrates Plan: 1. Abx as above. No witnessed aspiration; monitor for development of PNA. 2. ABG 3. IS 4. PRN nebs #IDDM with HHS -A1C 11 this admit. BG 600 on arrival -Home regimen: Lantus 50 BID, 10 units prandially, SSI Plan: 1. Cont insulin drip. 2. DM education this admit. #chronic diabetic foot wound -followed by Dr. Stevens Plan as above. If CT concerning, will consult Dr. Stevens #elevated LFTs -check HIV, hepatitis panel. Check liver US and tylenol levels. No abdominal pain. Trend enzymes. Avoid hepatotoxic agents. -hold oxandrolone #DVT prophylaxis: heparin #Code status: Full.
--- NOTE | 2017-07-22 19:52 | XRay Report ---
CLINICAL INFORMATION: Hypoxia COMPARISON: 06/07/2017 FINDINGS: Heart size, mediastinum and pulmonary vessels are normal. Small vague right basilar infiltrates are noted.. No effusions IMPRESSION: Small vague bibasilar infiltrates Interpreted and Authenticated by: Jeremy Tuttle 07/22/17
[2017-07-22 20:01] LABS: Magnesium 1.8 mg/dL (1.6-2.5)
[2017-07-22] MEDS ORDERED: NALOXONE HCL 0.4 MG/ML VIAL IV PRN (20:31)
[2017-07-22] MEDS ORDERED: SENNOSIDES 1 TABLET PO PRN (20:31)
[2017-07-22] MEDS ORDERED: INSULIN REGULAR, HUMAN 50 UNIT in 0.9 % SODIUM CHLORIDE 100 ML IV PRN (20:31)
[2017-07-22] MEDS ORDERED: ONDANSETRON 4 MG/2 ML VIAL IV PRN (20:31)
[2017-07-22] MEDS ORDERED: BISACODYL 10 MG SUPP.RECT PR PRN (20:31)
[2017-07-22] MEDS: 0.9 % SODIUM CHLORIDE 1,000 ML IV SCH (20:50)
[2017-07-22] MEDS ORDERED: IOPAMIDOL 100 ML BOTTLE IV ONE (21:35)
[2017-07-22] MEDS ORDERED: CLINDAMYCIN 600 MG/4 ML VIAL ONE (21:36)
[2017-07-22] MEDS: CLINDAMYCIN 600 MG in DEXTROSE 5% IN WATER 50 ML IV SCH (21:50)
[2017-07-22 21:53] LABS: Acetaminophen < 5.0 ug/mL (0.0-5.0); Salicylate < 0.3 mg/dL (0-0.3)
[2017-07-22] MEDS: 0.9 % SODIUM CHLORIDE 10 ML SYRINGE IV SCH (21:55)
[2017-07-22 21:56] LABS: Appearance,Urine HAZY; Bacteria,Urine FEW /hpf (0); Bilirubin,Urine NEG (NEG); Color,Urine STRAW; Glucose,Urine (UA) >=500 mg/dL (NEG); Leukocyte Esterase,Urine 250 /uL (NEG); Mucus,Urine FEW /hpf (0); Nitrate,Urine POS (NEG); Protein,Urine NEG (NEG); Specific Gravity,Urine 1.012 (1.000-1.035); Urine Blood NEG mg/dL (<0.03); Urine RBC 1 /hpf (0-1); Urine Squamous Epithelial Cell 4 /hpf (0-4); Urine Transitional Epi Cells < 1 /hpf (0-2); Urine WBC 74 /hpf (0-4); Urobilinogen,Urine NEG (NEG)
[2017-07-22 22:02] LABS: Amphetamine Screen,Urine NONE DETECTED (NONDETECTED); Benzodiazepines Screen,Urine NONE DETECTED (NONDETECTED); Cocaine Screen,Urine NONE DETECTED (NONDETECTED); Opiate Screen,Urine NONE DETECTED (NONDETECTED); Oxycodone, Urine Screen NONE DETECTED (NONDETECTED)
[2017-07-22] MEDS: INSULIN LISPRO 1 UNIT/0.01 ML UNIT SQ SCH (22:50)
[2017-07-22] MEDS: ALBUTEROL SULFATE 2.5 MG/3 ML NEBULIZER NEB SCH (22:55)
[2017-07-22] MEDS ORDERED: INSULIN LISPRO 1 UNIT/0.01 ML UNIT SQ ONE (22:56)
[2017-07-23] MEDS ORDERED: PIPERACILLIN SODIUM/TAZOBACTAM 3.375 GM VIAL IV ONE ×2 (00:20→05:11)
[2017-07-23] MEDS: PIPERACILLIN SODIUM/TAZOBACTAM 3.375 GM in DEXTROSE 5% IN WATER 50 ML IV SCH ×4 (01:00→18:17)
[2017-07-23] MEDS: INSULIN LISPRO 1 UNIT/0.01 ML UNIT SQ SCH ×4 (02:34→21:06)
[2017-07-23] MEDS ORDERED: INSULIN LISPRO 1 UNIT/0.01 ML UNIT SQ ONE (02:40)
[2017-07-23] MEDS: ALBUTEROL SULFATE 2.5 MG/3 ML NEBULIZER NEB SCH ×6 (04:21→23:03)
[2017-07-23] MEDS: 0.9 % SODIUM CHLORIDE 1,000 ML IV SCH ×3 (04:22→18:15)
[2017-07-23] MEDS ORDERED: 0.9 % SODIUM CHLORIDE 1,000 ML IV ONE ×2 (04:36→06:08)
[2017-07-23] MEDS: CLINDAMYCIN 600 MG in DEXTROSE 5% IN WATER 50 ML IV SCH (05:06)
[2017-07-23] MEDS ORDERED: CLINDAMYCIN 600 MG/4 ML VIAL ONE (05:11)
[2017-07-23] MEDS: 0.9 % SODIUM CHLORIDE 10 ML SYRINGE IV SCH ×3 (05:38→21:49)
[2017-07-23 06:34] LABS: Mean Cell Volume 93.6 fL (80.0-100.0); Mean Corpuscular Hemoglobin 30.9 pg (26.0-34.0); Platelet Count 207 K/mcL (140-440); RBC 3.05 M/mcL (4.00-5.20); Red Cell Distribution Width 12.7 % (11.5-14.5)
[2017-07-23 06:48] LABS: ALT/SGPT 31 U/l (0-40); Albumin 2.5 gm/dL (3.2-5.2); Alkaline Phosphatase 111 U/L (39-117); Bilirubin,Direct < 0.2 mg/dL (0.0-0.3); Blood Urea Nitrogen 12 mg/dl (6-20); Gamma Glutamyl Transpeptidase 56 U/L (5-36); Magnesium 1.8 mg/dL (1.6-2.5); Uric Acid 3.9 mg/dL (2.5-8.0)
[2017-07-23 07:20] LABS: Band Neutrophils % 15 % (0-10); Eosinophils % (Manual) 1 % (0-7); Lymphocytes % 19 % (15-49); Monocytes % (Manual) 3 % (1-12); Platelet Estimate NORMAL (NORMAL); RBC Morphology NORMAL (NORMAL); Segmented Neutrophils % 62 % (38-78)
[2017-07-23] MEDS ORDERED: CALCIUM GLUCONATE 4.65 MEQ/10 ML VIAL IV ONE (07:38)
[2017-07-23] MEDS ORDERED: LACTATED RINGERS 1,000 ML IV ONE (07:38)
[2017-07-23] MEDS ORDERED: CALCIUM GLUCONATE 9.3 MEQ in DEXTROSE 5% IN WATER 50 ML IV ONE (08:00)
[2017-07-23] MEDS: INSULIN GLARGINE, HUMAN 1 UNIT/0.01 ML SQ SCH ×2 (09:00→21:06)
--- NOTE | 2017-07-23 09:10 | Cat Scan Report ---
CLINICAL INFORMATION: Hypoxia COMPARISON: Abdomen and pelvic CT from 11/02/2016 TECHNIQUE: Axial images obtained through the chest. intravenous contrast administration was administered, and scanning was performed during pulmonary arterial phase. Sagittally and coronally reformatted images were obtained. MIP reformatted images. FINDINGS: The pulmonary arteries are well opacified - no evidence of embolus. The central pulmonary artery is enlarged, however (3.3 cm). The thoracic aorta is normal in contour and caliber with minimal intimal thickening. There is no adenopathy in the mediastinal hilar or axillary regions. Esophagus is mildly dilated with narrowing at the GE junction. Pulmonary parenchymal windows show moderate patchy infiltrates in both posterior lower lobes - consider aspiration. There are no effusions. Images through the abdomen show moderate hepatomegaly which is new since the comparison abdominal CT eight months prior (11/02/2016). The visualized spleen appears normal in size. Bones and soft tissues of the chest wall are unremarkable IMPRESSION: 1. No evidence of pulmonary emboli. 2. Mild enlargement of the central pulmonary arteries which is suggestive, although not diagnostic, of pulmonary hypertension. Consider echocardiogram correlation 3. Moderate patchy infiltrates in both posterior lower lobes - consider aspiration 4. Mild dilatation of the esophagus with narrowing at the GE junction which could indicate esophageal spasm or stricture. If there are symptoms of dysphagia consider esophagram. Esophagram may also be useful in determining epiglottis and vocal cord closure, thus assessing the patient's future risk for additional aspiration events 5. Moderate hepatomegaly with inhomogeneous liver attenuation suggesting a diffuse hepatocellular process such as hepatitis etc. This finding is new since an abdominal CT eight months prior Interpreted and Authenticated by: Jeremy Tuttle 07/23/17
--- NOTE | 2017-07-23 10:31 | Internal Med Progress Note ---
Medical - PN: Subj Patient information: Note initiated : 07/23/17 at 10:23 am Service Date, if different from initiated Date: [] Patient: Jeanette Gonzalez 41 y/o F admitted on 07/22/17 for Foot pain. Chief Complaint: hypotension Interval history: Admit July 22: This is a 41-year-old female with a history of uncontrolled insulin-dependent diabetes mellitus and chronic right foot wound he presented to the ER initially with right foot pain and sepsis as well as HHS with a sugar of 600. She was treated with vancomycin and Zosyn and, for her foot pain, she received 3 mg of Dilaudid. She had an episode of decreased level of consciousness associated with hypoxia and hypotension. This was preceded by an episode of itchiness and subjective dyspnea. She responded with aggressive IV hydration and multiple doses of Narcan. Her vancomycin was stopped and replaced with clindamycin as she was too sleepy to take oral linezolid. She required brief treatment with insulin drip and was then transitioned to subcutaneous insulin. July 23: Overnight she continued to be hypotensive but did respond to fluids. She now endorses a several day history of nasal congestion and cough and sore throat. CT of the chest was done in the ER prior to transfer to ICU which is negative for PE but does show possible aspiration pneumonitis. Her LFTs have improved (they were elevated yesterday) and CT shows moderate hepatomegaly which is a new finding from prior CTA months ago. Her main complaint is right foot pain she is endorsing nausea and states she cannot take oral hydrocodone. Last night, nursing reports that she planed of pain but then would quickly fall back asleep. Will add her home hydrocodone today with Dilaudid 0.25 mg every 4- 6 hours as needed. Radiology recommends an MRI to evaluate her foot inside of the CT scan I initially ordered. Now that she is awake we will restart her linezolid. Pertinent ROS: no fever or sob - Constitutional Vitals: Vital Signs Temp Pulse Resp BP Pulse Ox 98.4 F 102 H 14 123/83 98 07/23/17 08:00 07/23/17 09:00 07/23/17 09:15 07/23/17 10:00 07/23/17 09:00 Period Temp Pulse Resp BP Sys/Santiago Pulse Ox Last 24 Hr 98.3 F-101.6 F 31-138 8-31 74-183/45-162 76-100 Intake and Output 07/22/17 07/23/17 07/23/17 21:59 05:59 13:59 Intake Total 3365 / 3365 90 / 90 Output Total 250 / 250 1200 / 1200 0 / 0 Balance 3115 / 3115 -1200 / -1200 90 / 90 Weight 173 lb General: NAD. Alert HEENT: Pharyngeal mucosa injected CV: Mild tachycardia. No murmur Pulmonary: Lungs are clear to auscultation bilaterally Abdomen: Soft, nondistended, nontender. Active bowel tones. Extremities: The dorsal aspect has a healing superficial wound with some serosanguineous drainage. On the plantar aspect she has 2 wounds that have a pink base with dried blood around them. Her foot is warm. No erythema. Neuro: Alert and oriented 3. No focal deficits Psych: Anxious Intake & Output: Intake & Output 07/22/17 07/23/17 07/23/17 21:59 05:59 13:59 Intake Total 3365 / 3365 90 / 90 Output Total 250 / 250 1200 / 1200 0 / 0 Balance 3115 / 3115 -1200 / -1200 90 / 90 Weight 173 lb Intake: IV 3365 / 3365 Sodium Chloride 0.9% 1,000 ml @ 3200 / 3200 Wide Open IV BOLUS ONE Rx#: [id number] HumuLIN R 50 UNIT In Sodium 30 / 30 Chloride 0.9% 99.5 ml @ 5 UNIT/ HR 10 mls/hr IV ONCE ONE Rx#: [id number] Zosyn 3.375 gm In Dextrose 5% 50 / 50 in Water 50 ml @ 100 mls/hr IV ONCE ONE Rx#:[id number] Potassium Chloride 20 Meq In 60 / 60 Dextrose 5% in Water 250 ml @ 130 mls/hr IV ONCE ONE Rx#: [id number] Vancomycin 1,000 mg In Sodium 25 / 25 Chloride 0.9% 250 ml @ 250 mls/ hr IV ONCE ONE Rx#:[id number] Oral 90 / 90 Output: Void Amount 250 / 250 1200 / 1200 # of times incontinent of urine 0 / 0 Other: # Voids 1 0 # Bowel Movements 1 1 Medical - PN: Obj Da - Labs CBC & Chem 7: 07/23/17 04:00 07/23/17 04:00 Labs: Abnormal Lab Results 07/23/17 07/23/17 07/22/17 04:00 04:00 21:19 WBC 17.3 H RBC 3.05 L Hgb 9.4 L Hct 28.5 L MPV 7.2 L Gran % Lymph % (Auto) Gran # Lymph # (Auto) Band Neutrophils % 15 H ESR VBG Lactic Acid Sodium Chloride Carbon Dioxide 20 L POC Total CO2 Anion Gap Glucose 226 H POC Glucose Hemoglobin A1c Calcium 7.1 L POC WB Ioniz Calcium GGT 56 H AST 43 H ALT Alkaline Phosphatase Total Creatine Kinase C-Reactive Protein Total Protein 5.1 L Albumin 2.5 L Urine Glucose (UA) >=500 A Urine Nitrate Pos A Ur Leukocyte Esterase 250 A Urine WBC 74 H Urine Bacteria Few A 07/22/17 07/22/17 07/22/17 18:42 16:07 16:07 WBC RBC Hgb Hct MPV Gran % Lymph % (Auto) Gran # Lymph # (Auto) Band Neutrophils % ESR 80 H VBG Lactic Acid Sodium Chloride Carbon Dioxide POC Total CO2 20 L Anion Gap Glucose POC Glucose 369 H Hemoglobin A1c Calcium POC WB Ioniz Calcium 1.06 L GGT AST ALT Alkaline Phosphatase Total Creatine Kinase 619 H C-Reactive Protein Total Protein Albumin Urine Glucose (UA) Urine Nitrate Ur Leukocyte Esterase Urine WBC Urine Bacteria 07/22/17 07/22/17 07/22/17 16:07 16:07 16:07 WBC 18.8 H RBC 3.90 L Hgb Hct 35.7 L MPV Gran % 87.9 H Lymph % (Auto) 6.9 L Gran # 16.5 H Lymph # (Auto) 1.3 L Band Neutrophils % ESR VBG Lactic Acid 2.6 H Sodium 127 L Chloride 87 L Carbon Dioxide POC Total CO2 Anion Gap 17.0 H Glucose 602 H* POC Glucose Hemoglobin A1c 11.3 H Calcium POC WB Ioniz Calcium GGT AST 167 H ALT 66 H Alkaline Phosphatase 180 H Total Creatine Kinase C-Reactive Protein 7.6 H Total Protein Albumin Urine Glucose (UA) Urine Nitrate Ur Leukocyte Esterase Urine WBC Urine Bacteria CT of the chest shows no pulmonary embolism but does show likely aspiration as well as new hepatomegaly. Meds: Medications Hydrocodone Bitart/Acetaminophen (Mchenry 10/325mg) 1 tab PO Q4H PRN PRN Reason: Pain Albuterol Sulfate (Ventolin) 2.5 mg NEB Q4HRT CHRISTINA Last Admin: 07/23/17 10:15 Dose: Not Given Bisacodyl (Dulcolax) 10 mg WA Q2-3DAYS PRN PRN Reason: Constipation Diagnostic Test (Pha) (Accu-Chek) 1 each FS ACHS [facility] Last Admin: 07/23/17 08:42 Dose: 1 each Enoxaparin Sodium (Lovenox) 40 mg SQ DAILY [facility] Hydromorphone HCl (Dilaudid) 0.25 mg IV Q4-6HP PRN PRN Reason: Pain Clindamycin Phosphate 600 mg/ (Dextrose) 54 mls @ 100 mls/hr IV Q8H [facility] Last Admin: 07/23/17 05:06 Dose: Not Given Sodium Chloride (Sodium Chloride 0.9%) 1,000 mls @ 150 mls/hr IV .Q6H40M [facility] Last Admin: 07/23/17 04:22 Dose: Not Given Piperacillin Sod/Tazobactam (Sod 3.375 gm/ Dextrose) 50 mls @ 100 mls/hr IV Q6H [facility] Last Admin: 07/23/17 05:39 Dose: Not Given Insulin Human Regular 50 unit/ (Sodium Chloride) 100.5 mls @ 2.01 mls/hr IV Q24HP PRN; Protocol; 1 UNIT/HR PRN Reason: HYPERGLYCEMIA Insulin Glargine (Lantus) 15 unit SQ BID [facility] Insulin Human Lispro (Humalog) 0 unit SQ ACHS [facility] PRN Reason: Protocol Last Admin: 07/23/17 02:34 Dose: 12 unit Naloxone HCl (Narcan) 0.1 mg IV Q2MIN PRN PRN Reason: Opiate Reversal Ondansetron HCl (Zofran) 4 mg IV Q4-6HP PRN PRN Reason: Nausea And Vomiting Senna (Senokot) 2 tab PO HSP PRN PRN Reason: Constipation Sodium Chloride (Saline Flush) 10 ml IV Q8 [facility] Last Admin: 07/23/17 05:38 Dose: 10 ml Medical - PN: A/P - Time Spent With Patient Total time spent is greater than 50% in coordination of care (as documented) at patient's floor/unit and/or counseling patient: Greater than 35 minutes - Narrative A/P Narrative: #sepsis -with T 101.6, WBC 18.8 on admission, PCT 1.56-->4.65. ESR 80 -Likely 2/2 complicated UTI w GNR -? other sources: Possibly 2/2 her foot wound but does not seem that severe. May be r/t viral URI. At risk for PNA given aspiration in ED. -?allergy to vancomycin w episode of decreased consciousness and itching. Change clindamycin back to po Zyvox now that awake (IV Zyvox not available). Cont Zosyn -doubt [employer] infection -f/u BC. Trend PCT -MRI foot ordered for tomorrow. Will need some sedation #oversedation d/t Dilaudid--associated with itching/dyspnea sensation w concomitant administration of vanco -s/p Narcan -add vanco to allergy list -ASA, Tylenol, EtOH unremarkable. f/u UDS -still c/o pain. Will resume home hydrocodone and Dilaudid 0.25mg IV q4-6 PRN. Concern for seeking behaviors in the past. #hypotension -with lactic acidosis on admission. -likely hypovolemic 2/2 HHS. She is fluid responsive and not vol overloaded. Start 5th liter now. #acute hypoxic respiratory failure -associated with above event -CTA shows aspiration; monitor for PNA/pneumonitis. Cont linezolid and zosyn. #IDDM with HHS -A1C 11 this admit. BG 600 on arrival s/p insulin gtt -Home regimen: Lantus 100 HS, 10 units prandially, SSI tier 1. Will start with Lantus 15 BID and SSI. Titrate up as able; she would be better on BID Lantus on discharge given her large dose. -DM education this admit. #chronic diabetic foot wound -followed by Dr. Rodney Herman as above. If MRI concerning, will consult Dr. Stevens #elevated LFTs w new hepatomegaly -check HIV, hepatitis panel. Enzymes improved today. Avoid hepatotoxic agents. -hold oxandrolone--prescribed last admit. She does not think she has been taking this #DVT prophylaxis: heparin #Code status: Full. Medical - PN: Qual - VTE Deep Vein Thrombosis/Pulmonary Embolism Present on Admission: No
[2017-07-23] MEDS: ENOXAPARIN 40 MG/0.4 ML SYRINGE SQ SCH (10:36)
[2017-07-23] MEDS: HYDROcodone/APAP 10/325MG TABLET PO PRN ×2 (11:35→18:44)
[2017-07-23] MEDS: HYDROmorphone 2 MG/ML SYRINGE IV PRN ×3 (13:06→21:06)
[2017-07-23] MEDS: LINEZOLID 600 MG TABLET PO SCH (21:49)
[2017-07-24] MEDS: PIPERACILLIN SODIUM/TAZOBACTAM 3.375 GM in DEXTROSE 5% IN WATER 50 ML IV SCH ×4 (01:18→17:48)
[2017-07-24] MEDS: HYDROmorphone 2 MG/ML SYRINGE IV PRN ×4 (01:24→19:10)
[2017-07-24] MEDS: HYDROcodone/APAP 10/325MG TABLET PO PRN ×5 (01:27→23:55)
[2017-07-24] MEDS: 0.9 % SODIUM CHLORIDE 1,000 ML IV SCH ×2 (01:58→07:11)
[2017-07-24] MEDS: ALBUTEROL SULFATE 2.5 MG/3 ML NEBULIZER NEB SCH ×2 (04:43→07:37)
[2017-07-24 05:38] LABS: Mean Cell Volume 92.4 fL (80.0-100.0); Mean Corpuscular HGB Conc 33.3 g/dL (31.0-36.0); Mean Corpuscular Hemoglobin 30.8 pg (26.0-34.0); Platelet Count 235 K/mcL (140-440); RBC 3.34 M/mcL (4.00-5.20); Red Cell Distribution Width 12.9 % (11.5-14.5)
[2017-07-24 06:00] LABS: ALT/SGPT 35 U/l (0-40); Albumin 2.9 gm/dL (3.2-5.2); Albumin/Globulin Ratio 0.9 (1.0-2.3); Alkaline Phosphatase 148 U/L (39-117); Bilirubin,Direct < 0.2 mg/dL (0.0-0.3); Blood Urea Nitrogen 7 mg/dl (6-20); Gamma Glutamyl Transpeptidase 92 U/L (5-36); Magnesium 1.6 mg/dL (1.6-2.5); Uric Acid 2.2 mg/dL (2.5-8.0)
[2017-07-24] MEDS: 0.9 % SODIUM CHLORIDE 10 ML SYRINGE IV SCH ×5 (06:21→22:26)
[2017-07-24] MEDS ORDERED: BENZONATATE 100 MG CAPSULE PO PRN ×2 (06:26→10:19)
[2017-07-24 06:40] LABS: Band Neutrophils % 4 % (0-10); Lymphocytes % 11 % (15-49); Monocytes % (Manual) 2 % (1-12); Platelet Estimate NORMAL (NORMAL); RBC Morphology NORMAL (NORMAL); Segmented Neutrophils % 82 % (38-78)
[2017-07-24] MEDS ORDERED: INSULIN GLARGINE, HUMAN 1 UNIT/0.01 ML SQ SCH ×2 (07:05→21:00)
[2017-07-24] MEDS: INSULIN LISPRO 1 UNIT/0.01 ML UNIT SQ SCH ×4 (08:03→22:27)
[2017-07-24] MEDS ORDERED: MIDAZOLAM 2 MG/2 ML VIAL IV ONE ×3 (08:46→15:01)
[2017-07-24] MEDS ORDERED: fentaNYL 100 MCG/2 ML VIAL IV PRN (08:46)
[2017-07-24] MEDS: ENOXAPARIN 40 MG/0.4 ML SYRINGE SQ SCH (09:12)
[2017-07-24] MEDS: LINEZOLID 600 MG TABLET PO SCH ×2 (09:12→22:08)
[2017-07-24] MEDS ORDERED: ALBUTEROL SULFATE 2.5 MG/3 ML NEBULIZER NEB PRN ×3 (09:20→19:50)
[2017-07-24] MEDS ORDERED: FLU VACC QS2017-18 36MOS UP/PF 60 MCG/0.5 ML SYRINGE IM ONE (10:00)
[2017-07-24] MEDS ORDERED: ONDANSETRON 4 MG/2 ML VIAL IV PRN ×2 (10:19→19:50)
[2017-07-24] MEDS ORDERED: NALOXONE HCL 0.4 MG/ML VIAL IV PRN ×2 (10:19→19:50)
[2017-07-24] MEDS ORDERED: BISACODYL 10 MG SUPP.RECT PR PRN ×2 (10:19→19:50)
[2017-07-24] MEDS ORDERED: SENNOSIDES 1 TABLET PO PRN ×2 (10:19→19:50)
--- NOTE | 2017-07-24 10:33 | Internal Med Progress Note ---
Medical - PN: Subj Patient information: Note initiated : 07/24/17 at 10:29 am Service Date, if different from initiated Date: [] Patient: Jeanette Gonzalez 41 y/o F admitted on 07/22/17 for Foot pain. Chief Complaint: [] Interval history: Admit July 22: This is a 41-year-old female with a history of uncontrolled insulin-dependent diabetes mellitus and chronic right foot wound he presented to the ER initially with right foot pain and sepsis as well as HHS with a sugar of 600. She was treated with vancomycin and Zosyn and, for her foot pain, she received 3 mg of Dilaudid. She had an episode of decreased level of consciousness associated with hypoxia and hypotension. This was preceded by an episode of itchiness and subjective dyspnea. She responded with aggressive IV hydration and multiple doses of Narcan. Her vancomycin was stopped and replaced with clindamycin as she was too sleepy to take oral linezolid. She required brief treatment with insulin drip and was then transitioned to subcutaneous insulin. July 23: Overnight she continued to be hypotensive but did respond to fluids. She now endorses a several day history of nasal congestion and cough and sore throat. CT of the chest was done in the ER prior to transfer to ICU which is negative for PE but does show possible aspiration pneumonitis. Her LFTs have improved (they were elevated yesterday) and CT shows moderate hepatomegaly which is a new finding from prior CTA months ago. Her main complaint is right foot pain she is endorsing nausea and states she cannot take oral hydrocodone. Last night, nursing reports that she planed of pain but then would quickly fall back asleep. Will add her home hydrocodone today with Dilaudid 0.25 mg every 4- 6 hours as needed. Radiology recommends an MRI to evaluate her foot inside of the CT scan I initially ordered. Now that she is awake we will restart her linezolid. July 24: She continues to have persistent, severe dry cough and spiked fever to 102 overnight. She sometimes has posttussive dry heaves and urinary incontinence. I'm testing her for pertussis and she is placed on droplet precautions. She has urinary urgency. Her white count has improved and her blood pressure is stable. We'll try her off IV fluids today as she is having some hand edema. She is willing to get her MRI of her foot done with conscious sedation. Her blood sugars remain high. We discussed that she needs twice daily Lantus given her high dose at home although I'm not sure she is taking this or taking it correctly since she is not eating as much insulin here. Her urine drug screen from admission is negative despite [place] is pending methamphetamine testing) despite being collected in the ER after receiving Dilaudid. Pertinent ROS: no abdominal pain, cont'd foot pain - Constitutional Vitals: Vital Signs Temp Pulse Resp BP Pulse Ox 98.9 F 92 H 18 133/86 96 07/24/17 08:00 07/24/17 10:00 07/24/17 10:00 07/24/17 10:00 07/24/17 10:00 Period Temp Pulse Resp BP Sys/Santiago Pulse Ox Last 24 Hr 97.8 F-102.0 F 86-121 6-28 101-191/55-158 89-100 Intake and Output 07/23/17 07/24/17 07/24/17 21:59 05:59 13:59 Intake Total 1610 / 1610 1290 / 1290 780 / 780 Output Total 7000 / 7000 2400 / 2400 1350 / 1350 Balance -5390 / -5390 -1110 / -1110 -570 / -570 Weight 171 lb 6.4 oz Intake & Output: Intake & Output 07/23/17 07/24/17 07/24/17 21:59 05:59 13:59 Intake Total 1610 / 1610 1290 / 1290 780 / 780 Output Total 7000 / 7000 2400 / 2400 1350 / 1350 Balance -5390 / -5390 -1110 / -1110 -570 / -570 Weight 171 lb 6.4 oz Intake: IV 1050 / 1050 1050 / 1050 780 / 780 Sodium Chloride 0.9% 1,000 ml @ 1000 / 1000 1000 / 1000 780 / 780 150 mls/hr IV .Q6H40M [facility]STINA Rx#: [id number] Zosyn 3.375 gm In Dextrose 5% 50 / 50 50 / 50 in Water 50 ml @ 100 mls/hr IV Q6H [facility]STINA Rx#:[id number] Oral 560 / 560 240 / 240 Output: Void Amount 7000 / 7000 2400 / 2400 1350 / 1350 # of times incontinent of urine 0 / 0 Other: Meal Dinner Percent of Meal Consumed 75% Feeding Ability Independent # Voids 1 2 1 Exam: General: Awake, alert. No acute distress HEENT: Conjunctiva injected. Pharyngeal mucosa injected CV: Mild tachycardia, no murmur Respiratory: Lungs are clear to auscultation bilaterally. No wheeze Abdomen: Soft, nondistended, nontender. Positive bowel tones Extremities: No clubbing or cyanosis. She had mild peripheral edema in her hands. She has mildly increased swelling in her fifth toe on her right foot. The ulcer on the sole of her foot now has a central area of brown eschar. Edema is stable. Erythema is resolved. Neural: Alert and oriented 3. No focal deficits. Medical - PN: Obj Da - Labs CBC & Chem 7: 07/24/17 03:50 07/24/17 03:50 Labs: Abnormal Lab Results 07/24/17 07/24/17 07/23/17 03:50 03:50 04:00 WBC 11.9 H RBC 3.34 L Hgb 10.3 L Hct 30.9 L MPV 7.3 L Gran % Lymph % (Auto) Gran # Lymph # (Auto) Seg Neutrophils % 82 H Band Neutrophils % Lymphocytes % 11 L ESR VBG Lactic Acid Sodium Chloride Carbon Dioxide 21 L 20 L POC Total CO2 Anion Gap Glucose 223 H 226 H POC Glucose Hemoglobin A1c Uric Acid 2.2 L Calcium 8.2 L 7.1 L POC WB Ioniz Calcium GGT 92 H 56 H AST 38 H 43 H ALT Alkaline Phosphatase 148 H Total Creatine Kinase C-Reactive Protein Total Protein 5.1 L Albumin 2.9 L 2.5 L Albumin/Globulin Ratio 0.9 L Urine Glucose (UA) Urine Nitrate Ur Leukocyte Esterase Urine WBC Urine Bacteria 07/23/17 07/22/17 07/22/17 04:00 21:19 18:42 WBC 17.3 H RBC 3.05 L Hgb 9.4 L Hct 28.5 L MPV 7.2 L Gran % Lymph % (Auto) Gran # Lymph # (Auto) Seg Neutrophils % Band Neutrophils % 15 H Lymphocytes % ESR VBG Lactic Acid Sodium Chloride Carbon Dioxide POC Total CO2 20 L Anion Gap Glucose POC Glucose 369 H Hemoglobin A1c Uric Acid Calcium POC WB Ioniz Calcium 1.06 L GGT AST ALT Alkaline Phosphatase Total Creatine Kinase C-Reactive Protein Total Protein Albumin Albumin/Globulin Ratio Urine Glucose (UA) >=500 A Urine Nitrate Pos A Ur Leukocyte Esterase 250 A Urine WBC 74 H Urine Bacteria Few A 07/22/17 07/22/17 07/22/17 16:07 16:07 16:07 WBC RBC Hgb Hct MPV Gran % Lymph % (Auto) Gran # Lymph # (Auto) Seg Neutrophils % Band Neutrophils % Lymphocytes % ESR 80 H VBG Lactic Acid 2.6 H Sodium Chloride Carbon Dioxide POC Total CO2 Anion Gap Glucose POC Glucose Hemoglobin A1c Uric Acid Calcium POC WB Ioniz Calcium GGT AST ALT Alkaline Phosphatase Total Creatine Kinase 619 H C-Reactive Protein Total Protein Albumin Albumin/Globulin Ratio Urine Glucose (UA) Urine Nitrate Ur Leukocyte Esterase Urine WBC Urine Bacteria 07/22/17 07/22/17 16:07 16:07 WBC 18.8 H RBC 3.90 L Hgb Hct 35.7 L MPV Gran % 87.9 H Lymph % (Auto) 6.9 L Gran # 16.5 H Lymph # (Auto) 1.3 L Seg Neutrophils % Band Neutrophils % Lymphocytes % ESR VBG Lactic Acid Sodium 127 L Chloride 87 L Carbon Dioxide POC Total CO2 Anion Gap 17.0 H Glucose 602 H* POC Glucose Hemoglobin A1c 11.3 H Uric Acid Calcium POC WB Ioniz Calcium GGT AST 167 H ALT 66 H Alkaline Phosphatase 180 H Total Creatine Kinase C-Reactive Protein 7.6 H Total Protein Albumin Albumin/Globulin Ratio Urine Glucose (UA) Urine Nitrate Ur Leukocyte Esterase Urine WBC Urine Bacteria Meds: Medications Hydrocodone Bitart/Acetaminophen ([place] 10/325mg) 1 tab PO Q4H PRN PRN Reason: Pain Albuterol Sulfate (Ventolin) 2.5 mg NEB Q4HRT [facility] Albuterol Sulfate (Ventolin) 2.5 mg NEB Q4HP PRN PRN Reason: Shortness Of Breath Benzonatate (Tessalon) 200 mg PO TIDP PRN PRN Reason: Cough Bisacodyl (Dulcolax) 10 mg [place] Q2-3DAYS PRN PRN Reason: Constipation Diagnostic Test (Pha) (Accu-Chek) 1 each FS ACHS [facility] Enoxaparin Sodium (Lovenox) 40 mg SQ DAILY [facility] Fentanyl (Sublimaze) 100 mcg IV Q2HP PRN PRN Reason: Sedation Hydromorphone HCl (Dilaudid) 0.25 mg IV Q4-6HP PRN PRN Reason: Pain Piperacillin Sod/Tazobactam (Sod 3.375 gm/ Dextrose) 50 mls @ 100 mls/hr IV Q6H [facility] Insulin Glargine (Lantus) 25 unit SQ BID [facility] Insulin Human Lispro (Humalog) 0 unit SQ ACHS [facility]INA PRN Reason: Protocol Linezolid (Zyvox) 600 mg PO Q12 [facility] Midazolam HCl (Versed) 2 mg IV ONCE ONE Stop: 07/24/17 10:20 Naloxone HCl (Narcan) 0.1 mg IV Q2MIN PRN PRN Reason: Opiate Reversal Ondansetron HCl (Zofran) 4 mg IV Q4-6HP PRN PRN Reason: Nausea And Vomiting Senna (Senokot) 2 tab PO HSP PRN PRN Reason: Constipation Sodium Chloride (Saline Flush) 10 ml IV Q8 [facility] Medical - PN: A/P - Time Spent With Patient Total time spent is greater than 50% in coordination of care (as documented) at patient's floor/unit and/or counseling patient: Greater than 35 minutes - Narrative A/P Narrative: #sepsis -still spiking fevers despite linezolid and Zosyn. WBC and PCT trending down -Likely 2/2 complicated UTI w GNR -? other sources: Possibly 2/2 her foot wound but does not seem that severe. May be r/t viral URI. MRI of foot today with conscious sedation. Test for pertussis and place in droplet precautions. D/W Dr. Walker who agrees with plan. -?allergy to vancomycin w episode of decreased consciousness and itching. #oversedation d/t Dilaudid--associated with itching/dyspnea sensation w concomitant administration of vanco -s/p Narcan -add vanco to allergy list as may be allergic reaction. -ASA, Tylenol, EtOH unremarkable. f/u UDS -still c/o pain. Cont home hydrocodone and Dilaudid 0.25mg IV q4-6 PRN. Concern for seeking behaviors in the past. On pain mmgt agreement with PCP. #hypotension, resolved -with lactic acidosis on admission. -likely hypovolemic 2/2 HHS. BP now stable. DC IVF #acute hypoxic respiratory failure -associated with above event -CTA shows aspiration; monitor for PNA/pneumonitis. Cont linezolid and zosyn. #IDDM with HHS -A1C 11 this admit. BG 600 on arrival s/p insulin gtt -Home regimen: Lantus 100 HS, 10 units prandially, SSI tier 1. Increase Lantus 25 BID and cont SSI. Titrate up as needed; she would be better on BID Lantus on discharge given her large dose. -DM education this admit. #chronic diabetic foot wound -followed by Dr. Stevens He will see after MRI. #elevated LFTs w new hepatomegaly -HIV neg. f/u hepatitis panel. Enzymes improving. Avoid hepatotoxic agents. Also consider fatty liver given her uncontrolled DM -hold oxandrolone--prescribed last admit. She does not think she has been taking this #DVT prophylaxis: heparin #Code status: Full. #Dispo: downgrade to tele today. Medical - PN: Qual - VTE Deep Vein Thrombosis/Pulmonary Embolism Present on Admission: No
[2017-07-24] MEDS ORDERED: ALBUTEROL SULFATE 2.5 MG/3 ML NEBULIZER NEB SCH (11:00)
[2017-07-24] MEDS ORDERED: fentaNYL 100 MCG/2 ML VIAL IV ONE ×2 (13:00→15:01)
--- NOTE | 2017-07-24 16:43 | General Surgery Consult Note ---
History of Present Illness Patient information: Note initiated : 07/24/17 at 4:32 pm Service Date, if different from initiated Date: [] Patient: Jeanette Gonzalez 41 y/o F admitted on 07/22/17 for Foot Pain/Sepsis, Hyperglycemia. Chief Complaint: [] Consult date: 07/24/17 Requesting physician: Jennifer Mondragon (Right foot DFU Snell 1) History of present illness: I saw this patient with Francie and reviewed the events leading to her admission this time around. Currently in hospital for uncontrolled diabetes, electrolyte imbalance, URTI, possible aspiration pneumonitis and CHRONIC on going skin and skin structure right foot infection , Snell 1 neuropathic ulcer , this time on the plantar aspect of 5 th toe MPJ. Previous ulcer on the plantar aspect of right 1 st toe tip has healed. Previous post surgical skin wounds on the dorsal surface of Right ankle and fore foot have healed. Patient has NOT been adherent with instructions regarding RIGHT foot wound care and off loading. Continues to smoke cigarettes. Currently she does NOT have any acute signs of right foot soft tissue deep space infection. NO cellulitis or lymphangitis and palpable foot pulses. MRI of foot ordered by hospitalist physician is awaited. Lab results reviewed and CT angiogram is negative for pulmonary emboli. Urine drug screen results awaited. Medications and Allergies Home Medications Medication Instructions Recorded Confirmed Type Cyclobenzaprine HCl 10 mg PO TID 02/08/17 07/22/17 History traMADol [Ultram] 50 mg PO Q6HP PRN 02/08/17 07/22/17 History HYDROcodone/APAP 10/325MG [Center 1 tab PO Q4H PRN 04/20/17 07/22/17 History 10/325Mg] traZODone HCL [Desyrel] 50 mg PO HS 04/20/17 07/22/17 History Escitalopram [Lexapro] 20 mg PO DAILY 06/04/17 07/22/17 History Gabapentin 800 mg PO TID #90 tab 06/08/17 07/22/17 Rx Insulin Aspart [Novolog] See Protocol SQ ACHS #1 each 06/08/17 07/22/17 Rx Insulin Glargine,Hum.rec.anlog 50 unit SQ BID #1 each 06/08/17 07/22/17 Rx [Lantus Solostar] Insulin Lispro [Humalog] 10 unit SQ AC #1 each 06/08/17 07/22/17 Rx Oxandrolone [Oxandrin] 5 mg PO BID #120 tablet 06/08/17 07/22/17 Rx Allergies Allergy/AdvReac Type Severity Reaction Status Date / Time ketorolac [From Toradol] AdvReac Intermediate Vomiting Verified 07/22/17 15:22 metoclopramide [From Reglan] AdvReac Intermediate Shakiness Verified 07/22/17 15 :22 morphine AdvReac Intermediate Headache Verified 07/22/17 15:22 NSAIDS (Non-Steroidal AdvReac Intermediate Vomiting Verified 07/22/17 15:22 Anti-Inflamma promethazine [From Phenergan] AdvReac Intermediate Shakiness Verified 07/22/17 15:22 vancomycin AdvReac Intermediate Unknown Verified 07/24/17 09:29 Exam Temp Pulse Resp BP Pulse Ox 98.9 F 106 H 20 148/95 98 07/24/17 08:00 07/24/17 14:56 07/24/17 16:01 07/24/17 16:01 07/24/17 16:01 - General physical appearance well developed, well nourished, no distress, other (puffiness face and edema of lower eyelids. ) - Eyes PERRL, normal ocular movement - ENT normal pinna, normal nares, normal mucosa, no congestion - Head Head exam IM: Present: atraumatic, normal inspection, normocephalic - Neck no masses, trachea midline, no venous distension - Cardiovascular Cardiovascular exam IM: Present: normal rate and rhythm - Respiratory normal expansion, other (deecreased air entry lung bases. ) - Abdomen Abdomen: Present: soft, non tender, bowel sounds - Integumentary Present: other (RIGHT foot chronic skin scars. NO acute ulcer. No cellulitis and NO lymphangitis. Minimal fungal debris between toes. No ulcers, NO odor ) - Neurologic Present: other (NON focal and NON lateralizing neurological examination. Detailed examination NOT done. 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 ) - Musculoskeletal Present: other (Moves all extremities . Chronic post surgical changes of right foot as mentioned above) - Psychiatric Present: oriented to time, oriented to person, oriented to place, speech is normal, memory intact Results - Labs 07/24/17 03:50 07/24/17 03:50 Abnormal lab results 07/24/17 07/24/17 Range/Units 03:50 03:50 WBC 11.9 H (4.5-11.0) K/mcL RBC 3.34 L (4.00-5.20) M/mcL Hgb 10.3 L (12.0-15.0) g/dL Hct 30.9 L (36.0-48.0) % MPV 7.3 L (7.4-10.4) fL Seg Neutrophils % 82 H (38-78) % Lymphocytes % 11 L (15-49) % Carbon Dioxide 21 L (22-30) mmol/L Glucose 223 H (70-105) mg/dL Uric Acid 2.2 L (2.5-8.0) mg/dL Calcium 8.2 L (8.6-10.4) mg/dl GGT 92 H (5-36) U/L AST 38 H (0-37) U/l Alkaline Phosphatase 148 H (39-117) U/L Albumin 2.9 L (3.2-5.2) gm/dL Albumin/Globulin Ratio 0.9 L (1.0-2.3) Diabetes panel 07/24/17 Range/Units 03:50 Sodium 137 (133-145) mmol/L Potassium 4.2 (3.3-5.1) mmol/L Chloride 103 (96-108) mmol/L Carbon Dioxide 21 L (22-30) mmol/L BUN 7 (6-20) mg/dl Creatinine 0.9 (0.6-1.1) mg/dl Glucose 223 H (70-105) mg/dL Calcium 8.2 L (8.6-10.4) mg/dl AST 38 H (0-37) U/l ALT 35 (0-40) U/l Alkaline Phosphatase 148 H (39-117) U/L Total Protein 6.1 (5.9-8.4) gm/dL Albumin 2.9 L (3.2-5.2) gm/dL Triglycerides 73 (<150) mg/dl Calcium panel 07/24/17 Range/Units 03:50 Calcium 8.2 L (8.6-10.4) mg/dl Phosphorus 3.0 (2.7-4.5) mg/dL Albumin 2.9 L (3.2-5.2) gm/dL Pituitary panel 07/24/17 Range/Units 03:50 Sodium 137 (133-145) mmol/L Potassium 4.2 (3.3-5.1) mmol/L Chloride 103 (96-108) mmol/L Carbon Dioxide 21 L (22-30) mmol/L BUN 7 (6-20) mg/dl Creatinine 0.9 (0.6-1.1) mg/dl Glucose 223 H (70-105) mg/dL Calcium 8.2 L (8.6-10.4) mg/dl Adrenal panel 07/24/17 Range/Units 03:50 Sodium 137 (133-145) mmol/L Potassium 4.2 (3.3-5.1) mmol/L Chloride 103 (96-108) mmol/L Carbon Dioxide 21 L (22-30) mmol/L BUN 7 (6-20) mg/dl Creatinine 0.9 (0.6-1.1) mg/dl Glucose 223 H (70-105) mg/dL Calcium 8.2 L (8.6-10.4) mg/dl Total Bilirubin 0.3 (0.0-1.0) mg/dL AST 38 H (0-37) U/l ALT 35 (0-40) U/l Alkaline Phosphatase 148 H (39-117) U/L Total Protein 6.1 (5.9-8.4) gm/dL Albumin 2.9 L (3.2-5.2) gm/dL All other labs normal. Assessment and Plan (1) Diabetes mellitus with foot ulcer due to multiple causes Assessment : Multiple medical problems, Metabolic, endocrine , respiratory with NON adherence to wound care treatment regime. Plan: Continue current management. Local wound care and antifungal powder ( Nystatin ). Will repeat serum pre albumin and TSH levels. WILL FOLLOW THIS PATIENT DURING HER CURRENT HOSPITALIZATION. Status: Chronic Priority: Low Comment: Continue current wound care for right foot plantar ulcer and fungal infection between toes.
[2017-07-24] MEDS ORDERED: NYSTATIN POWDER BOTTLE 15GM TOPICAL SCH (17:06)
[2017-07-24] MEDS ORDERED: MAGNESIUM SULFATE 2 GM/50 ML BAG IV ONE ×2 (18:55→19:12)
[2017-07-24] MEDS ORDERED: LINEZOLID 600 MG TABLET PO SCH (21:00)
[2017-07-24] MEDS: INSULIN GLARGINE, HUMAN 1 UNIT/0.01 ML SQ SCH (22:25)
[2017-07-24] MEDS: NYSTATIN POWDER BOTTLE 15GM TOPICAL SCH (22:26)
[2017-07-25] MEDS: PIPERACILLIN SODIUM/TAZOBACTAM 3.375 GM in DEXTROSE 5% IN WATER 50 ML IV SCH ×4 (00:04→18:05)
[2017-07-25] MEDS: HYDROmorphone 2 MG/ML SYRINGE IV PRN ×4 (01:22→22:12)
[2017-07-25] MEDS: HYDROcodone/APAP 10/325MG TABLET PO PRN ×3 (04:02→13:19)
[2017-07-25 06:02] LABS: Mean Cell Volume 92.2 fL (80.0-100.0); Mean Corpuscular HGB Conc 33.9 g/dL (31.0-36.0); Mean Corpuscular Hemoglobin 31.2 pg (26.0-34.0); Platelet Count 280 K/mcL (140-440); RBC 3.64 M/mcL (4.00-5.20); Red Cell Distribution Width 12.6 % (11.5-14.5)
[2017-07-25 06:32] LABS: Prealbumin 12.6 mg/dl (20-40)
[2017-07-25] MEDS: 0.9 % SODIUM CHLORIDE 10 ML SYRINGE IV SCH ×3 (06:36→22:14)
[2017-07-25 06:46] LABS: ALT/SGPT 30 U/l (0-40); Albumin 3.6 gm/dL (3.2-5.2); Albumin/Globulin Ratio 1.1 (1.0-2.3); Alkaline Phosphatase 154 U/L (39-117); Bilirubin,Direct < 0.2 mg/dL (0.0-0.3); Blood Urea Nitrogen 7 mg/dl (6-20); Gamma Glutamyl Transpeptidase 103 U/L (5-36); Magnesium 2.3 mg/dL (1.6-2.5); Uric Acid 2.8 mg/dL (2.5-8.0)
[2017-07-25] MEDS: INSULIN LISPRO 1 UNIT/0.01 ML UNIT SQ SCH ×4 (07:45→22:14)
[2017-07-25 07:48] LABS: Band Neutrophils % 4 % (0-10); Eosinophils % (Manual) 3 % (0-7); Lymphocytes % 21 % (15-49); Monocytes % (Manual) 9 % (1-12); Platelet Estimate NORM (NORMAL); RBC Morphology ABNORMAL (NORMAL); Segmented Neutrophils % 63 % (38-78)
[2017-07-25] MEDS ORDERED: ENOXAPARIN 40 MG/0.4 ML SYRINGE SQ SCH (09:00)
[2017-07-25] MEDS: LINEZOLID 600 MG TABLET PO SCH ×2 (09:16→21:58)
[2017-07-25] MEDS: LEVOTHYROXINE 25 MCG TABLET PO SCH (09:16)
[2017-07-25] MEDS: INSULIN GLARGINE, HUMAN 1 UNIT/0.01 ML SQ SCH ×2 (09:16→22:13)
[2017-07-25] MEDS: ENOXAPARIN 40 MG/0.4 ML SYRINGE SQ SCH (09:16)
[2017-07-25] MEDS: NYSTATIN POWDER BOTTLE 15GM TOPICAL SCH ×2 (09:16→21:57)
[2017-07-25] MEDS ORDERED: LORazepam 2 MG/ML VIAL IV ONE ×2 (09:20)
[2017-07-25] MEDS ORDERED: FLU VACC QS2017-18 36MOS UP/PF 60 MCG/0.5 ML SYRINGE IM ONE (10:00)
--- NOTE | 2017-07-25 10:36 | Internal Med Progress Note ---
Medical - PN: Subj Patient information: Note initiated : 07/25/17 at 10:33 am Service Date, if different from initiated Date: [] Patient: Jeanette Gonzalez 41 y/o F admitted on 07/22/17 for Foot Pain/Sepsis, Hyperglycemia. Chief Complaint: [] Interval history: Admit July 22: This is a 41-year-old female with a history of uncontrolled insulin-dependent diabetes mellitus and chronic right foot wound he presented to the ER initially with right foot pain and sepsis as well as HHS with a sugar of 600. She was treated with vancomycin and Zosyn and, for her foot pain, she received 3 mg of Dilaudid. She had an episode of decreased level of consciousness associated with hypoxia and hypotension. This was preceded by an episode of itchiness and subjective dyspnea. She responded with aggressive IV hydration and multiple doses of Narcan. Her vancomycin was stopped and replaced with clindamycin as she was too sleepy to take oral linezolid. She required brief treatment with insulin drip and was then transitioned to subcutaneous insulin. July 23: Overnight she continued to be hypotensive but did respond to fluids. She now endorses a several day history of nasal congestion and cough and sore throat. CT of the chest was done in the ER prior to transfer to ICU which is negative for PE but does show possible aspiration pneumonitis. Her LFTs have improved (they were elevated yesterday) and CT shows moderate hepatomegaly which is a new finding from prior CTA months ago. Her main complaint is right foot pain she is endorsing nausea and states she cannot take oral hydrocodone. Last night, nursing reports that she planed of pain but then would quickly fall back asleep. Will add her home hydrocodone today with Dilaudid 0.25 mg every 4- 6 hours as needed. Radiology recommends an MRI to evaluate her foot inside of the CT scan I initially ordered. Now that she is awake we will restart her linezolid. July 24: She continues to have persistent, severe dry cough and spiked fever to 102 overnight. She sometimes has posttussive dry heaves and urinary incontinence. I'm testing her for pertussis and she is placed on droplet precautions. She has urinary urgency. Her white count has improved and her blood pressure is stable. We'll try her off IV fluids today as she is having some hand edema. She is willing to get her MRI of her foot done with conscious sedation. Her blood sugars remain high. We discussed that she needs twice daily Lantus given her high dose at home although I'm not sure she is taking this or taking it correctly since she is not eating as much insulin here. Her urine drug screen from admission is negative despite Trace is pending methamphetamine testing) despite being collected in the ER after receiving Dilaudid. July 25: patient seen examined, sitting comfortably in the bed, did not appear in any distress. She notes she is doing ok but still has cough and some pain in the right foot. She is able to tolerate po diet well. Her Glucose level is much better, and her wbc count is trending down. lft improved we were unable to get MRI of the her right foot due to her severe anxiety, we will try again today with IV ativan before the procedure to see if this helps. If not consider CT right foot vs bone scan. Patient still has cough, pertusisi is neg, CXR on admission did show some ? infiltrates, will repeat CXR again, check for influenza. Pertinent ROS: Denies headache, dizziness No palpitations, present chest pain with cough present cough and some chest pain associated with the cough no shortness of breath Denies abdominal pain, nausea or vomiting. - Constitutional Vitals: Vital Signs Temp Pulse Resp BP Pulse Ox 97.0 F 98 H 20 124/68 93 07/25/17 07:00 07/25/17 07:00 07/25/17 07:00 07/25/17 07:00 07/25/17 08:00 Period Temp Pulse Resp BP Sys/Santiago Pulse Ox Last 24 Hr 97.0 F-98.6 F 91-107 15-28 109-162/68-124 92-98 Intake and Output 07/24/17 07/25/17 07/25/17 21:59 05:59 13:59 Intake Total 3050 / 3050 350 / 350 50 / 50 Output Total 1300 / 1300 325 / 325 Balance 1750 / 1750 25 / 25 50 / 50 Weight 157 lb Intake & Output: Intake & Output 07/24/17 07/25/17 07/25/17 21:59 05:59 13:59 Intake Total 3050 / 3050 350 / 350 50 / 50 Output Total 1300 / 1300 325 / 325 Balance 1750 / 1750 25 / 25 50 / 50 Weight 157 lb Intake: IV 3050 / 3050 50 / 50 50 / 50 Zosyn 3.375 gm In Dextrose 5% 50 / 50 50 / 50 in Water 50 ml @ 100 mls/hr IV Q6H ON LICENSE OF [facility] Rx#:[id number] Oral 300 / 300 Output: Void Amount 1300 / 1300 325 / 325 Other: # Voids 1 # Bowel Movements 0 Exam: Constitutional; Afebrile, cooperative, alert, not in distress. Eyes- No icterus, , No periorbital swelling Ears- Ext ear normal, hearing normal to conversation. Neck- Midline trachea, supple Respiratory system: Air Entry equal on both sides, No crackles or wheezing, no rhonchi. prolonged exp phase noted. CVS- Rate rhythm regular, S1,S2 heard, no gallop, no rub. 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 Medical - PN: Obj Da - Labs CBC & Chem 7: 07/25/17 04:45 07/25/17 04:45 Labs: Abnormal Lab Results 07/25/17 07/25/17 07/24/17 04:45 04:45 03:50 WBC RBC 3.64 L Hgb 11.4 L Hct 33.5 L MPV 7.1 L Gran % Lymph % (Auto) Gran # Lymph # (Auto) Seg Neutrophils % Band Neutrophils % Lymphocytes % Polychromasia Occ A ESR VBG Lactic Acid Sodium Chloride Carbon Dioxide 21 L POC Total CO2 Anion Gap Glucose 121 H 223 H POC Glucose Hemoglobin A1c Uric Acid 2.2 L Calcium 8.5 L 8.2 L POC WB Ioniz Calcium GGT 103 H 92 H AST 38 H ALT Alkaline Phosphatase 154 H 148 H Total Creatine Kinase C-Reactive Protein Total Protein Albumin 2.9 L Albumin/Globulin Ratio 0.9 L Prealbumin 12.6 L TSH 15.78 H Urine Glucose (UA) Urine Nitrate Ur Leukocyte Esterase Urine WBC Urine Bacteria 07/24/17 07/23/17 07/23/17 03:50 04:00 04:00 WBC 11.9 H 17.3 H RBC 3.34 L 3.05 L Hgb 10.3 L 9.4 L Hct 30.9 L 28.5 L MPV 7.3 L 7.2 L Gran % Lymph % (Auto) Gran # Lymph # (Auto) Seg Neutrophils % 82 H Band Neutrophils % 15 H Lymphocytes % 11 L Polychromasia ESR VBG Lactic Acid Sodium Chloride Carbon Dioxide 20 L POC Total CO2 Anion Gap Glucose 226 H POC Glucose Hemoglobin A1c Uric Acid Calcium 7.1 L POC WB Ioniz Calcium GGT 56 H AST 43 H ALT Alkaline Phosphatase Total Creatine Kinase C-Reactive Protein Total Protein 5.1 L Albumin 2.5 L Albumin/Globulin Ratio Prealbumin TSH Urine Glucose (UA) Urine Nitrate Ur Leukocyte Esterase Urine WBC Urine Bacteria 07/22/17 07/22/17 07/22/17 21:19 18:42 16:07 WBC RBC Hgb Hct MPV Gran % Lymph % (Auto) Gran # Lymph # (Auto) Seg Neutrophils % Band Neutrophils % Lymphocytes % Polychromasia ESR VBG Lactic Acid Sodium Chloride Carbon Dioxide POC Total CO2 20 L Anion Gap Glucose POC Glucose 369 H Hemoglobin A1c Uric Acid Calcium POC WB Ioniz Calcium 1.06 L GGT AST ALT Alkaline Phosphatase Total Creatine Kinase 619 H C-Reactive Protein Total Protein Albumin Albumin/Globulin Ratio Prealbumin TSH Urine Glucose (UA) >=500 A Urine Nitrate Pos A Ur Leukocyte Esterase 250 A Urine WBC 74 H Urine Bacteria Few A 07/22/17 07/22/17 07/22/17 16:07 16:07 16:07 WBC RBC Hgb Hct MPV Gran % Lymph % (Auto) Gran # Lymph # (Auto) Seg Neutrophils % Band Neutrophils % Lymphocytes % Polychromasia ESR 80 H VBG Lactic Acid 2.6 H Sodium 127 L Chloride 87 L Carbon Dioxide POC Total CO2 Anion Gap 17.0 H Glucose 602 H* POC Glucose Hemoglobin A1c 11.3 H Uric Acid Calcium POC WB Ioniz Calcium GGT AST 167 H ALT 66 H Alkaline Phosphatase 180 H Total Creatine Kinase C-Reactive Protein 7.6 H Total Protein Albumin Albumin/Globulin Ratio Prealbumin TSH Urine Glucose (UA) Urine Nitrate Ur Leukocyte Esterase Urine WBC Urine Bacteria 07/22/17 16:07 WBC 18.8 H RBC 3.90 L Hgb Hct 35.7 L MPV Gran % 87.9 H Lymph % (Auto) 6.9 L Gran # 16.5 H Lymph # (Auto) 1.3 L Seg Neutrophils % Band Neutrophils % Lymphocytes % Polychromasia ESR VBG Lactic Acid Sodium Chloride Carbon Dioxide POC Total CO2 Anion Gap Glucose POC Glucose Hemoglobin A1c Uric Acid Calcium POC WB Ioniz Calcium GGT AST ALT Alkaline Phosphatase Total Creatine Kinase C-Reactive Protein Total Protein Albumin Albumin/Globulin Ratio Prealbumin TSH Urine Glucose (UA) Urine Nitrate Ur Leukocyte Esterase Urine WBC Urine Bacteria Meds: Medications Hydrocodone Bitart/Acetaminophen ([place] 10/325mg) 1 tab PO Q4HP PRN PRN Reason: Pain Last Admin: 07/25/17 09:15 Dose: 1 tab Albuterol Sulfate (Ventolin) 2.5 mg NEB Q4HP PRN PRN Reason: Shortness Of Breath Benzonatate (Tessalon) 200 mg PO TIDP PRN PRN Reason: Cough Bisacodyl (Dulcolax) 10 mg DC Q2-3DAYS PRN PRN Reason: Constipation Diagnostic Test (Pha) (Accu-Chek) 1 each FS ACHS ON LICENSE OF [facility] Last Admin: 07/25/17 07:45 Dose: 1 each Enoxaparin Sodium (Lovenox) 40 mg SQ DAILY ON LICENSE OF [facility] Last Admin: 07/25/17 09:16 Dose: 40 mg Hydromorphone HCl (Dilaudid) 0.25 mg IV Q4-6HP PRN PRN Reason: Pain Last Admin: 07/25/17 06:01 Dose: 0.25 mg Piperacillin Sod/Tazobactam (Sod 3.375 gm/ Dextrose) 50 mls @ 100 mls/hr IV Q6H ON LICENSE OF [facility] Last Infusion: 07/25/17 06:30 Dose: Infused Insulin Glargine (Lantus) 25 unit SQ BID ON LICENSE OF [facility] Last Admin: 07/25/17 09:16 Dose: 25 unit Insulin Human Lispro (Humalog) 0 unit SQ [facility] PRN Reason: Protocol Last Admin: 07/25/17 07:45 Dose: 12 unit Levothyroxine Sodium (Synthroid) 25 mcg PO QAMAC ON LICENSE OF [facility] Last Admin: 07/25/17 09:16 Dose: 25 mcg Linezolid (Zyvox) 600 mg PO Q12 ON LICENSE OF [facility] Last Admin: 07/25/17 09:16 Dose: 600 mg Naloxone HCl (Narcan) 0.1 mg IV Q2MIN PRN PRN Reason: Opiate Reversal Nystatin (Kenalog) 1 dose TOPICAL BID ON LICENSE OF [facility] Last Admin: 07/25/17 09:16 Dose: 1 dose Ondansetron HCl (Zofran) 4 mg IV Q4-6HP PRN PRN Reason: Nausea And Vomiting Last Admin: 07/25/17 04:02 Dose: 4 mg Senna (Senokot) 2 tab PO HSP PRN PRN Reason: Constipation Sodium Chloride (Saline Flush) 10 ml IV Q8 [place]RISTINA Last Admin: 07/25/17 06:36 Dose: 10 ml Medical - PN: A/P - Time Spent With Patient Total time spent is greater than 50% in coordination of care (as documented) at patient's floor/unit and/or counseling patient: - Narrative A/P Narrative: Sepsis -still spiking low grade fevers, but trend is better, she remains on linezolid and Zosyn. WBC and PCT trending down -Likely 2/2 complicated UTI w GNR, repeat CXR to r/o PNA on admission she did seem to have ? infitrate -? other sources: Possibly 2/2 her foot wound but does not seem that severe. MRI foot with ativan if possible if not consider CT vs bone scan. -?allergy to vancomycin w episode of decreased consciousness and itching. -Clinically her sepsis/ Infection is improving. #oversedation d/t Dilaudid--associated with itching/dyspnea sensation w concomitant administration of vanco -s/p Narcan -added vanco to allergy list as may be allergic reaction. -ASA, Tylenol, EtOH unremarkable. f/u UDS -still c/o pain. Cont home hydrocodone and Dilaudid 0.25mg IV q4-6 PRN. Concern for seeking behaviors in the past. On pain mmgt agreement with PCP. #hypotension, resolved -with lactic acidosis on admission now resolved -likely hypovolemic 2/2 HHS. BP now stable. DC IVF #acute hypoxic respiratory failure/ Aspiration pna/ Cough -associated with above event -CTA shows aspiration; monitor for PNA/pneumonitis. Cont linezolid and zosyn. - repeat CXR today to see if getting worse. #IDDM with HHS -A1C 11 this admit. BG 600 on arrival s/p insulin gtt -Home regimen: Lantus 100 HS, 10 units prandially, SSI tier 1. Increase Lantus 25 BID and cont SSI. Titrate up as needed; she would be better on BID Lantus on discharge given her large dose. -DM education this admit. -Glucose values at goal, < 180, continue present management. #chronic diabetic foot wound -followed by Dr. D. He will see after MRI. #elevated LFTs w new hepatomegaly -HIV neg. pending hepatitis panel. Enzymes improving. #DVT prophylaxis: heparin #Code status: Full. #Dispo: downgraded to floor status last night. Medical - PN: Qual - VTE Deep Vein Thrombosis/Pulmonary Embolism Present on Admission: No
--- NOTE | 2017-07-25 11:48 | XRay Report ---
HISTORY: Reason for Exam:cough and shortness of breath FINDINGS: There are prominent increased reticular lung markings bilaterally. The greatest involvement is in the lower lobes. This has progressed since the time of the recent chest CT done on 07/22/17. There is no lobar consolidation. Lung volumes are normal. No pleural effusion has developed. The heart size, mediastinum and yelitza are normal. IMPRESSION: Nonspecific interstitial inflammation throughout both lungs which has become worse Interpreted and Authenticated by: Asad Reyna 07/25/17
[2017-07-25] MEDS: BENZONATATE 100 MG CAPSULE PO PRN ×2 (13:18→21:58)
[2017-07-25] MEDS: IPRATROPIUM/ALBUTEROL 3 ML AMPUL.NEB NEB SCH ×3 (13:21→19:34)
[2017-07-26] MEDS: PIPERACILLIN SODIUM/TAZOBACTAM 3.375 GM in DEXTROSE 5% IN WATER 50 ML IV SCH ×3 (00:14→11:45)
[2017-07-26] MEDS: NYSTATIN POWDER BOTTLE 15GM TOPICAL SCH ×2 (01:49→09:18)
[2017-07-26] MEDS: IPRATROPIUM/ALBUTEROL 3 ML AMPUL.NEB NEB SCH ×4 (04:15→13:40)
[2017-07-26] MEDS: 0.9 % SODIUM CHLORIDE 10 ML SYRINGE IV SCH (04:48)
[2017-07-26] MEDS: HYDROmorphone 2 MG/ML SYRINGE IV PRN ×3 (04:48→13:15)
[2017-07-26 06:31] LABS: Mean Cell Volume 91.2 fL (80.0-100.0); Mean Corpuscular HGB Conc 33.6 g/dL (31.0-36.0); Mean Corpuscular Hemoglobin 30.6 pg (26.0-34.0); Platelet Count 342 K/mcL (140-440); RBC 3.99 M/mcL (4.00-5.20); Red Cell Distribution Width 12.8 % (11.5-14.5)
[2017-07-26 06:47] LABS: ALT/SGPT 26 U/l (0-40); Albumin 3.6 gm/dL (3.2-5.2); Albumin/Globulin Ratio 0.9 (1.0-2.3); Alkaline Phosphatase 169 U/L (39-117); Bilirubin,Direct < 0.2 mg/dL (0.0-0.3); Blood Urea Nitrogen 8 mg/dl (6-20); Gamma Glutamyl Transpeptidase 125 U/L (5-36); Magnesium 2.1 mg/dL (1.6-2.5); Uric Acid 2.9 mg/dL (2.5-8.0)
[2017-07-26] MEDS: LEVOTHYROXINE 25 MCG TABLET PO SCH (07:14)
[2017-07-26] MEDS: INSULIN LISPRO 1 UNIT/0.01 ML UNIT SQ SCH ×2 (07:16→11:47)
[2017-07-26] MEDS: HYDROcodone/APAP 10/325MG TABLET PO PRN ×2 (07:22→11:44)
[2017-07-26 07:57] LABS: Eosinophils % (Manual) 3 % (0-7); Lymphocytes % 35 % (15-49); Monocytes % (Manual) 4 % (1-12); Myelocytes % 1 % (0-0); Platelet Estimate NORMAL (NORMAL); RBC Morphology NORMAL (NORMAL); Segmented Neutrophils % 57 % (38-78)
[2017-07-26] MEDS: LINEZOLID 600 MG TABLET PO SCH (08:57)
[2017-07-26] MEDS: ENOXAPARIN 40 MG/0.4 ML SYRINGE SQ SCH (09:11)
--- NOTE | 2017-07-26 09:15 | Cat Scan Report ---
History: Diabetic with foot pain, sepsis and foot ulcer Findings: The foot was imaged without contrast in axial plane. Sagittal, coronal and oblique axial reformats were then created.. There is moderate soft tissue thickening in and beneath the skin along the dorsum and lateral aspect of the foot. There is no evidence of gas or foreign body in soft tissues. No clearly defined ulcer is seen. There is a focal area of cortical thinning with demineralization of the underlying bone in the distal portion of the medial cuneiform. There is no overlying soft tissue swelling. The appearance of this bone has remained stable since 06/27/17. It is unlikely this is due to acute osteomyelitis. No other bone erosion is seen. There is no periosteal elevation and no fracture or dislocation. The cellulitis along the dorsum of the foot is unchanged. Impression: Persistent cellulitis along the dorsum of the foot. No evidence of an abscess. No evidence of acute osteomyelitis Interpreted and Authenticated by: Asad Reyna 07/26/17
[2017-07-26] MEDS: INSULIN GLARGINE, HUMAN 1 UNIT/0.01 ML SQ SCH (09:17)
--- NOTE | 2017-07-26 12:13 | Discharge Summary ---
Medical - DS: Prov Patient information: Note initiated : 07/26/17 at 12:11 pm Service Date, if different from initiated Date: [] Patient: Jeanette Gonzalez 41 y/o F admitted on 07/22/17 for Foot Pain/Sepsis, Hyperglycemia. Chief Complaint: [] Date of admission: 07/22/17 20:25 Discharge date: 07/26/17 Primary care physician: John Chong Admitting clinician: Jennifer Mondragon Consults: 07/22/17 17:16 Consult to Physician [CONS] Stat Comment: Consulting Provider: Jennifer Mondragon Reason For Exam: Physician to Consult 07/24/17 16:34 Consult to Physician [CONS] Routine Comment: patient a previous wound care patient Consulting Provider: Skyler Nichols Reason For Exam: Physician to Consult Discharging clinician: Kassandra Marsh Medical - DS: Meds - Discharge Medications Prescriptions: Amoxicillin/Potassium Clav [Augmentin] 875 mg PO Q12H #20 tab Sulfamethoxazole/Trimethoprim [Bactrim Ds Tablet] 1 each PO BID #20 tab Active and Home Medications: Home Medications Cyclobenzaprine HCl 10 mg PO TID 02/08/17 [History Confirmed 07/22/17 Last Taken 06/13/17] traMADol [Ultram] 50 mg PO Q6HP PRN 02/08/17 [History Confirmed 07/22/17 Last Taken 06/13/17] HYDROcodone/APAP 10/325MG [[place] 10/325Mg] 1 tab PO Q4H PRN 04/20/17 [History Confirmed 07/22/17 Last Taken 06/13/17] traZODone HCL [Desyrel] 50 mg PO HS 04/20/17 [History Confirmed 07/22/17 Last Taken 06/12/17] Escitalopram [Lexapro] 20 mg PO DAILY 06/04/17 [History Confirmed 07/22/17 Last Taken 06/13/17] Gabapentin 800 mg PO TID #90 tab 06/08/17 [Rx Confirmed 07/22/17 Last Taken ] Insulin Aspart [Novolog] See Protocol SQ ACHS #1 each 06/08/17 [Rx Confirmed Last Taken 06/13/17] Insulin Glargine,Hum.rec.anlog [Lantus Solostar] 50 unit SQ BID #1 each [Rx Confirmed 07/22/17 Last Taken 06/13/17] Insulin Lispro [Humalog] 10 unit SQ AC #1 each 06/08/17 [Rx Confirmed 07/22/17 Last Taken 06/13/17] Oxandrolone [Oxandrin] 5 mg PO BID #120 tablet 06/08/17 [Rx Confirmed 07/22/17 Last Taken 06/13/17] Medical - DS: Hosp Hospital course: This is a 41-year-old female with a history of uncontrolled insulin-dependent diabetes mellitus and chronic right foot wound he presented to the ER initially with right foot pain and sepsis as well as HHS with a sugar of 600. In the ER she was treated with vancomycin and Zosyn and, for her foot pain, she received 3 mg of Dilaudid. She had an episode of decreased level of consciousness associated with hypoxia and hypotension. This was preceded by an episode of itchiness and subjective dyspnea. She responded with aggressive IV hydration and multiple doses of Narcan. The patient was then admitted to the hospital for further management. Cellulitis : Diabetic cellulitis, Wound caer done as per Dr Monterroso, patient treated with linezolid and zosyn while in the hospital with good response, initially we tried to get an MRI of the foot, however despite using sedation were unable to obtain an MRI, we therefore get a CT which was negative for any george involvement. Her blood cx was negative, and she will be discharged home on po bactrim and augmentin for broad coverage for diabetic cellutlitis. She will take additional 10 days of antibiotics. She will follow up with her wound care physician in 1 week. UTI: UA positive for UTI and urine cx growing granados sensitive ecoli, she is already on antibiotics which should cover this. Pneumonia: THe patient had cough and nasal congestion going on for several days , CT Scan in the ER done for PE was neg for same but did show pneumonia, her overall sepsis picture improved with broad spectrum antibiotics, she will continue antibiotics for cellulitis. Hyperosmolar state: The patient presented with elevated glucose in 600, she was briefly treated with insulin drip and later sq insulin. The patient responded to treatment well She notes she takes 50 units of lantus bid at home, in the hospital her glucose was very well controlled with just 25 units of lantus. I have not changed her home medications list ,but have advised the patient to take only 25 units of lantus bid and closely monitor her glucose and go up gradually if glucose is not well controlled. She must follow up with her PCP soon to manage her DM. Esophageal dilation : noted on CT chest, patient will benefit from outpatient esophageogram vs EGD Scopy, Hepatomegaly: Noted on CT scan, lft were abnl on presentation but normalized later. etiology unknown , hepatitis panel is negative, not sure if the anabolic steroid is playing any role in the infiltrative liver process. will hold this medication as lft improved and this med was not prescribed in the hospital Advised to talk to prescribing provider/ PCP before taking this medication again. Hypothyroidism: TSH was noted to be elevated at 15, started on levothyroxine 25mcg, patient will need repeat TSH eval in approx 6 weeks. Discharge diagnosis: cellutlitis, UTI, Pneumonia - Time Spent with Patient Total time spent providing and/or coordinating discharge services: Greater than 30 minutes Medical - DS: Exam - Constitutional Vitals: Vital Signs Temp Pulse Pulse Resp BP BP Pulse Ox 07/26/17 11:11 98.6 F 18 136/70 93 07/26/17 06:35 98.2 F 90 18 121/68 93 07/26/17 04:00 98.7 F 91 H 18 122/80 93 07/25/17 23:39 97.4 F 102 H 20 138/90 96 07/25/17 19:53 98.9 F 95 H 20 126/80 93 07/25/17 16:00 98.0 F 16 122/79 95 07/25/17 15:05 100 H 18 138/103 95 07/25/17 13:31 86 16 07/25/17 13:30 98 Intake and Output 07/25/17 07/26/17 07/26/17 21:59 05:59 13:59 Intake Total 50 / 50 690 / 690 50 / 50 Output Total 300 / 300 1000 / 1000 Balance -250 / -250 -310 / -310 50 / 50 Intake: IV 50 / 50 50 / 50 50 / 50 Zosyn 3.375 gm In Dextrose 5% 50 / 50 50 / 50 50 / 50 in Water 50 ml @ 100 mls/hr IV Q6H [facility] Rx#:[id number] Oral 640 / 640 Output: Void Amount 300 / 300 1000 / 1000 Other: Weight 156 lb 8 oz Additional comments: Constitutional; Afebrile, cooperative, alert, not in distress. Eyes- No icterus, , No periorbital swelling Ears- Ext ear normal, hearing normal to conversation. Neck- Midline trachea, supple Respiratory system: Air Entry equal on both sides, No crackles or wheezing, no rhonchi. CVS- Rate rhythm regular, S1,S2 heard, no gallop, no rub. 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 Medical - DS: Data Labs on day of discharge: Labs from last 24 hours 07/26/17 07/26/17 07/25/17 04:38 04:38 11:17 WBC 10.4 RBC 3.99 L Hgb 12.2 Hct 36.4 MCV 91.2 MCH 30.6 MCHC 33.6 RDW 12.8 Plt Count 342 MPV 7.1 L Total Counted 100 Seg Neutrophils % 57 Band Neutrophils % Not Reportable Lymphocytes % 35 Monocytes % (Manual) 4 Eosinophils % (Manual) 3 Myelocytes % 1 H Platelet Estimate Normal RBC Morphology Normal Sodium 137 Potassium 3.3 Chloride 98 Carbon Dioxide 23 Anion Gap 16.0 BUN 8 Creatinine 0.8 GFR Calculation 92 Glucose 73 Uric Acid 2.9 Calcium 8.7 Phosphorus 3.5 Magnesium 2.1 Total Bilirubin 0.3 Direct Bilirubin < 0.2 GGT 125 H AST 24 ALT 26 Alkaline Phosphatase 169 H Lactate Dehydrogenase 227 Total Protein 7.5 Albumin 3.6 Globulin 3.9 H Albumin/Globulin Ratio 0.9 L Triglycerides 128 U Methamphetamin GC/MS U Methamphetamin-MDMA Ur MDA Confirmation Urine MDEA Confirmation (GC/MS) Influenza A (Rapid) Presumed negative Influenza B (Rapid) Presumed negative 07/22/17 21:19 WBC RBC Hgb Hct MCV MCH MCHC RDW Plt Count MPV Total Counted Seg Neutrophils % Band Neutrophils % Lymphocytes % Monocytes % (Manual) Eosinophils % (Manual) Myelocytes % Platelet Estimate RBC Morphology Sodium Potassium Chloride Carbon Dioxide Anion Gap BUN Creatinine GFR Calculation Glucose Uric Acid Calcium Phosphorus Magnesium Total Bilirubin Direct Bilirubin GGT AST ALT Alkaline Phosphatase Lactate Dehydrogenase Total Protein Albumin Globulin Albumin/Globulin Ratio Triglycerides U Methamphetamin GC/MS Not Reportable U Methamphetamin-MDMA Not Reportable Ur MDA Confirmation Not Reportable Urine MDEA Not Reportable Confirmation (GC/MS) Not Reportable Influenza A (Rapid) Influenza B (Rapid) Preliminary micro results at discharge 07/22/17 16:27 Blood Culture - Preliminary Blood 07/22/17 15:33 Blood Culture - Preliminary Blood Medical - DS: A/P - Patient/Caregiver Discharge Instructions Activity: increase activity as tolerated, other (STRICT OFF LOADING ON TOES OF RIGHT FOOT.) Diet: Consistent Carbohydrate Additional Instructions: Wound care : Dry Protective dressings daily STRICT OFF LOADING OF THE TOES ON THE RIGHT FOOT. You have infection of the right foot, an urinary tract infection and pneumonia. You have been prescribed antibiotics for 10 days please take them as prescribed. You also had an enlarged liver on CT done here, you will need to hold the oxandrolone as this may have caused the liver issue. Please discuss with your primary provider before starting this medication again. You have abnormal thyroid function test and need thyroid hormone replacement. I have started you on levothyroxine at 25mcg / day, take this pill 30 mins before breakfast with water. You will need to have your tsh rechecked in 6 weeks You presented to the hospital with very high glucose, but while in the hospital your glucose seems well controlled with 25 units of lantus bid. I would advise you to just use 25 units twice daily of lantus, and if the glucose remains high gradually uptitrate the dose You may need an EGD Vs esophageogram for esophageal dilatation. Talk to your primary provider about same. Follow up with your pcp in 5-7 days Follow up with the wound clinic in 7 days Go to the ER if worsening symptoms, fever, chest pain or any other concerning symptom. - Follow up Plan Follow up with: John Chong [Primary Care Provider] - Disposition: Home, Self-Care Prognosis: Fair Rehab Potential: Fair I certify that the patient requires SNF services: No Overall status at discharge: patient is progressing back to baseline Medical - DS: Qual - VTE Deep Vein Thrombosis/Pulmonary Embolism Present on Admission: No
[2017-07-26] MEDS ORDERED: FLU VACC QS2017-18 36MOS UP/PF 60 MCG/0.5 ML SYRINGE IM ONE (14:30)
[2017-07-28 12:04] LABS: Hepatitis A Antibody Total NON-REACTIVE (NON-REACTIVE); Hepatitis B SAB Quant 23 mIU/mL (> OR = 10); Hepatitis B Surface Antigen NON-REACTIVE (NON-REACTIVE); Hepatitis C Virus Antibody NON-REACTIVE (NON-REACTIVE)
== END 2017-07-26 15:08 | disposition home or self-care (01) | DRG 871 ==
LOC: ED 15:16 → ICU 20:25 → MEDSUR 07-24 19:57
PROVIDERS: ADMIT Internal Medicine; ATTEND Internal Medicine

== ENCOUNTER 2017-08-01 16:00 | Inpatient (IN) ==
[2017-08-01] MEDS ORDERED: HYDROcodone/APAP 10/325MG TABLET PO ONE (16:43)
[2017-08-01] MEDS ORDERED: ONDANSETRON ODT 4 MG TABLET SL ONE (16:43)
[2017-08-01] MEDS ORDERED: HYDROcodone/APAP 5/325MG TABLET PO ONE (16:53)
[2017-08-01 17:00] LABS: Mean Cell Volume 90.1 fL (80.0-100.0); Mean Corpuscular HGB Conc 33.9 g/dL (31.0-36.0); Mean Corpuscular Hemoglobin 30.5 pg (26.0-34.0); Platelet Count 497 K/mcL (140-440); RBC 4.48 M/mcL (4.00-5.20); Red Cell Distribution Width 13.1 % (11.5-14.5)
--- NOTE | 2017-08-01 17:09 | XRay Report ---
CLINICAL INFORMATION: Foot wound COMPARISON: 07/22/2017. FINDINGS: Moderate diffuse soft tissue swelling is most compatible cellulitis. No radiopaque foreign body identified. There is no specific radiographic evidence of osteomyelitis or other osseous abnormality. Joint spaces are normal with alignment without arthritic change IMPRESSION: Diffuse soft tissue swelling compatible with cellulitis. No specific radiographic evidence of osteomyelitis Interpreted and Authenticated by: Jeremy Tuttle 08/01/17
[2017-08-01] MEDS ORDERED: LINEZOLID 600 MG/300 ML BAG IV ONE (17:10)
[2017-08-01 17:19] LABS: Estimated Average Glucose(eAG) 286 mg/dL; Hemoglobin A1C 11.6 % HGB (4.0-6.0)
[2017-08-01 17:21] LABS: Lymphocytes % 23 % (15-49); Monocytes % (Manual) 3 % (1-12); Platelet Estimate INCREASED (NORMAL); RBC Morphology NORMAL (NORMAL); Segmented Neutrophils % 74 % (38-78)
[2017-08-01] MEDS ORDERED: LINEZOLID 600 MG TABLET PO ONE (17:23)
[2017-08-01 17:24] LABS: ALT/SGPT 27 U/l (0-40); Albumin 4.7 gm/dL (3.2-5.2); Albumin/Globulin Ratio 1.1 (1.0-2.3); Alkaline Phosphatase 180 U/L (39-117); Blood Urea Nitrogen 13 mg/dl (6-20)
[2017-08-01] MEDS ORDERED: 0.9 % SODIUM CHLORIDE 1,000 ML IV ONE (17:27)
[2017-08-01 17:46] LABS: Beta Hydroxybutyrate 0.12 mmol/L (< 0.27)
[2017-08-01] MEDS ORDERED: INSULIN LISPRO 1 UNIT/0.01 ML UNIT SQ STA (18:08)
--- NOTE | 2017-08-01 18:39 | Emergency Department Note ---
Lower Extremity Injury HPI - General Chief Complaint: Extremity Injury, Lower Stated Complaint: right foot infection, needs admit for surgery tmrw Time Seen by Provider: 08/01/17 16:06 Source: patient Mode of arrival: ambulatory Limitations: no limitations - History of Present Illness complaint: foot injury (diabeteic foot wound right, see WOUND CARE DOCUMENTATION) Onset (ago): month(s) Type of Injury: other (pressure wound with exacerbation) Severity: severe, similar to previous episodes Improves with: nothing Worsens with: weight bearing, palpation Context: other Other symptoms: nausea/vomiting - Related Data Home Medications Medication Instructions Recorded Confirmed traMADol [Ultram] 50 mg PO Q6HP PRN 02/08/17 08/01/17 HYDROcodone/APAP 10/325MG [Tye 1 - 2 tab PO Q4H PRN 04/20/17 08/01/17 10/325Mg] traZODone HCL [Desyrel] 50 mg PO HS 04/20/17 08/01/17 Cyclobenzaprine [Flexeril] 10 mg PO TID 08/01/17 08/01/17 Oxandrolone [Oxandrin] 5 mg PO DAILY 08/01/17 08/01/17 Previous Rx's Medication Instructions Recorded Gabapentin 800 mg PO TID #90 tab 06/08/17 Insulin Aspart [Novolog] See Protocol SQ ACHS #1 each 06/08/17 Insulin Glargine,Hum.rec.anlog 50 unit SQ BID #1 each 06/08/17 [Lantus Solostar] Insulin Lispro [Humalog] 10 unit SQ AC #1 each 06/08/17 Allergies Allergy/AdvReac Type Severity Reaction Status Date / Time Iodinated Contrast- Oral and Allergy Severe Unknown Verified 08/01/17 16:14 IV Dye metformin Allergy Severe Unknown Verified 08/01/17 16:14 Amoxicillin Allergy Intermediate Unknown Verified 08/01/17 16:14 fluoxetine [From Prozac] Allergy Intermediate Unknown Verified 08/01/17 16:14 methocarbamol Allergy Intermediate Unknown Verified 08/01/17 16:14 Paroxetine [From Paxil] Allergy Intermediate Unknown Verified 08/01/17 16:14 Sulfa (Sulfonamide Allergy Intermediate Unknown Verified 08/01/17 16:14 Antibiotics) ketorolac [From Toradol] AdvReac Intermediate Vomiting Verified 07/22/17 15:22 NSAIDS (Non-Steroidal AdvReac Intermediate Vomiting Verified 07/22/17 15:22 Anti-Inflamma metoclopramide [From Reglan] AdvReac Mild Shakiness Verified 07/24/17 20:20 morphine AdvReac Mild Headache Verified 07/24/17 20:20 promethazine [From Phenergan] AdvReac Mild Shakiness Verified 07/24/17 20:20 vancomycin AdvReac Mild Unknown Verified 07/24/17 20:20 Review of Systems Constitutional: Denies: fever, chills Eyes: Denies: eye pain, eye discharge ENT ED: Denies: ear pain, throat pain Cardiovascular: Denies: chest pain, palpitations Respiratory: Denies: cough, dyspnea Gastrointestinal: Reports: nausea Genitourinary: Reports: frequency. Denies: urgency, dysuria Musculoskeletal: Reports: back pain Psychiatric: Reports: anxiety, depression Endocrine: Reports: fatigue Past Medical History - Past Medical History Attestation: Yes: The following information was validated with the patient. Source: old records reviewed, nursing notes reviewed Medical history: Reports: diabetes (With ulcers and significant neuropathy), other (History of wounds, flores, injuries, migraines. 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 Absent: lymphadenopathy - Chest Chest inspection: Present: normal inspection, symmetric chest wall rise - Respiratory Respiratory exam: Present: normal lung sounds bilaterally - Cardiovascular Cardiovascular exam: Present: regular rate, tachycardia - Abdominal Exam Abdominal exam: Present: soft. Absent: distention, tenderness - Extremities Exam Extremities exam: Present: other (Dressing not removed from right foot, I was able to view pictures of the wound. It will require surgical debridement at a minimum) - Back Exam Back exam: Absent: CVA tenderness (R), CVA tenderness (L) - Neurological Exam Neurological exam: Present: alert, oriented X3 - Psychiatric Psychiatric exam: Present: other (incongruent affect. At times histrionic and angry) Course Course Narrative: Bllod sugars very high, insulin given and oral ZYVOX. Will start daptomycin at Dr Valdovinos's request. Requests pain meds and antinausea medications Vital Signs Temperature 98.9 F 08/01/17 16:01 Pulse Rate 122 H 08/01/17 16:01 Respiratory Rate 24 H 08/01/17 16:01 Blood Pressure 135/87 08/01/17 16:01 Pulse Oximetry (%) 97 08/01/17 16:01 Temperature 97.8 F 08/01/17 20:02 Pulse Rate 102 H 08/01/17 20:02 Respiratory Rate 16 08/01/17 20:02 Blood Pressure 128/89 08/01/17 20:02 Pulse Oximetry (%) 97 08/01/17 20:02 Extremity Injury, Lower - MDM Narrative Medical decision making narrative: Admit to hospitalist care with planned Surgical debridement in the AM by Dr Valdovinos. He would like her on oral ZYVOX BID and Daptomycin 500 mg QD and NPO after midnight. Poorly controlled diabetes with severe hyperglycemia without acidosis. This is not unusual for this patient, but she has also come in to the ER in DKA as well. - Lab Data Result diagrams: 08/01/17 16:30 08/01/17 16:30 Lab Results 08/01/17 08/01/17 08/01/17 Range/Units 16:30 16:30 16:30 WBC 16.5 H (4.5-11.0) K/mcL RBC 4.48 (4.00-5.20) M/mcL Hgb 13.7 (12.0-15.0) g/dL Hct 40.4 (36.0-48.0) % MCV 90.1 (80.0-100.0) fL MCH 30.5 (26.0-34.0) pg MCHC 33.9 (31.0-36.0) g/dL RDW 13.1 (11.5-14.5) % Plt Count 497 H (140-440) K/mcL MPV 6.6 L (7.4-10.4) fL Total Counted 100 Seg Neutrophils % 74 (38-78) % Band Neutrophils % Not Reportable Lymphocytes % 23 (15-49) % Monocytes % (Manual) 3 (1-12) % Platelet Estimate Increased (NORMAL) RBC Morphology Normal (NORMAL) Sodium 128 L (133-145) mmol/L Potassium 4.3 (3.3-5.1) mmol/L Chloride 88 L (96-108) mmol/L Carbon Dioxide 23 (22-30) mmol/L Anion Gap 17.0 H (8-16) BUN 13 (6-20) mg/dl Creatinine 1.0 (0.6-1.1) mg/dl GFR Calculation 70 Glucose 664 H* (70-105) mg/dL Hemoglobin A1c 11.6 H (4.0-6.0) % HGB Estim Average Glucose 286 mg/dL Calcium 9.1 (8.6-10.4) mg/dl Total Bilirubin 0.4 (0.0-1.0) mg/dL AST 21 (0-37) U/l ALT 27 (0-40) U/l Alkaline Phosphatase 180 H (39-117) U/L Total Protein 8.9 H (5.9-8.4) gm/dL Albumin 4.7 (3.2-5.2) gm/dL Globulin 4.2 H (2.2-3.7) gm/dL Albumin/Globulin Ratio 1.1 (1.0-2.3) Beta-Hydroxybutyrate 0.12 (< 0.27) mmol/L Urine Color Urine Appearance Urine pH (5.0-9.0) Ur Specific Z[place] (1.000-1.035) Urine Protein (NEG) mg/dL Urine Glucose (UA) (NEG) mg/dL Urine Ketones (NEG) mg/dL Urine Occult Blood (<0.03) mg/dL Urine Nitrate (NEG) Urine Bilirubin (NEG) mg/dL Urine Urobilinogen (NEG) mg/dL Ur Leukocyte Esterase (NEG) /uL Urine RBC (0-1) /hpf Urine WBC (0-4) /hpf Ur Squamous Epith Cells (0-4) /hpf Urine Bacteria (0) /hpf Urine Mucus (0) /hpf Urine Yeast (Budding) (0) /hpf Ur Culture Indicated? Urine Opiates Screen (NONDETECTED) Ur Oxycodone Screen (NONDETECTED) Urine Methadone Screen (NONDETECTED) Ur Barbiturates Screen (NONDETECTED) Ur Phencyclidine Scrn (NONDETECTED) Ur Amphetamines Screen (NONDETECTED) U Benzodiazepines Scrn (NONDETECTED) Urine Cocaine Screen (NONDETECTED) U Marijuana (THC) Screen (NONDETECTED) 08/01/17 08/01/17 Range/Units 19:04 19:05 WBC (4.5-11.0) K/mcL RBC (4.00-5.20) M/mcL Hgb (12.0-15.0) g/dL Hct (36.0-48.0) % MCV (80.0-100.0) fL MCH (26.0-34.0) pg MCHC (31.0-36.0) g/dL RDW (11.5-14.5) % Plt Count (140-440) K/mcL MPV (7.4-10.4) fL Total Counted Seg Neutrophils % (38-78) % Band Neutrophils % Lymphocytes % (15-49) % Monocytes % (Manual) (1-12) % Platelet Estimate (NORMAL) RBC Morphology (NORMAL) Sodium (133-145) mmol/L Potassium (3.3-5.1) mmol/L Chloride (96-108) mmol/L Carbon Dioxide (22-30) mmol/L Anion Gap (8-16) BUN (6-20) mg/dl Creatinine (0.6-1.1) mg/dl GFR Calculation Glucose (70-105) mg/dL Hemoglobin A1c (4.0-6.0) % HGB Estim Average Glucose mg/dL Calcium (8.6-10.4) mg/dl Total Bilirubin (0.0-1.0) mg/dL AST (0-37) U/l ALT (0-40) U/l Alkaline Phosphatase (39-117) U/L Total Protein (5.9-8.4) gm/dL Albumin (3.2-5.2) gm/dL Globulin (2.2-3.7) gm/dL Albumin/Globulin Ratio (1.0-2.3) Beta-Hydroxybutyrate (< 0.27) mmol/L Urine Color Straw Urine Appearance Clear Urine pH 6.0 (5.0-9.0) Ur Specific Zalma 1.030 (1.000-1.035) Urine Protein Neg (NEG) mg/dL Urine Glucose (UA) >=500 A (NEG) mg/dL Urine Ketones Neg (NEG) mg/dL Urine Occult Blood >=1.0 A (<0.03) mg/dL Urine Nitrate Neg (NEG) Urine Bilirubin Neg (NEG) mg/dL Urine Urobilinogen Neg (NEG) mg/dL Ur Leukocyte Esterase Neg (NEG) /uL Urine RBC 178 H (0-1) /hpf Urine WBC 3 (0-4) /hpf Ur Squamous Epith Cells 0 (0-4) /hpf Urine Bacteria 0 (0) /hpf Urine Mucus Few (0) /hpf Urine Yeast (Budding) Few A (0) /hpf Ur Culture Indicated? Yes Urine Opiates Screen None detected (NONDETECTED) Ur Oxycodone Screen None detected (NONDETECTED) Urine Methadone Screen None detected (NONDETECTED) Ur Barbiturates Screen None detected (NONDETECTED) Ur Phencyclidine Scrn None detected (NONDETECTED) Ur Amphetamines Screen None detected (NONDETECTED) U Benzodiazepines Scrn None detected (NONDETECTED) Urine Cocaine Screen None detected (NONDETECTED) U Marijuana (THC) Screen None detected (NONDETECTED) Disposition Pt seen by MIGRATION AGENT/PA only: No Clinical Impression: Cellulitis and abscess of foot Disposition: Xfer As Inpt ([facility] Condition: Undetermined
[2017-08-01] MEDS ORDERED: DAPTOmycin 500 MG VIAL IV ONE (18:45)
[2017-08-01 19:34] LABS: Appearance,Urine CLEAR; Bacteria,Urine 0 /hpf (0); Bilirubin,Urine NEG (NEG); Color,Urine STRAW; Glucose,Urine (UA) >=500 mg/dL (NEG); Leukocyte Esterase,Urine NEG /uL (NEG); Mucus,Urine FEW /hpf (0); Nitrate,Urine NEG (NEG); Protein,Urine NEG (NEG); Urine Blood >=1.0 mg/dL (<0.03); Urine Budding Yeast FEW /hpf (0); Urine RBC 178 /hpf (0-1); Urine Squamous Epithelial Cell 0 /hpf (0-4); Urine WBC 3 /hpf (0-4); Urobilinogen,Urine NEG (NEG)
[2017-08-01 19:35] LABS: Amphetamine Screen,Urine NONE DETECTED (NONDETECTED); Benzodiazepines Screen,Urine NONE DETECTED (NONDETECTED); Cocaine Screen,Urine NONE DETECTED (NONDETECTED); Opiate Screen,Urine NONE DETECTED (NONDETECTED); Oxycodone, Urine Screen NONE DETECTED (NONDETECTED)
--- NOTE | 2017-08-01 19:35 | Internal Med History&Physical ---
Medical - H&P: HPI Patient information: Note initiated : 08/01/17 at 7:30 pm Patient: Jeanette Gonzalez 41 y/o F admitted on for right foot infection, needs admit for surgery tmrw. History of present illness: Ms. Gonzalez is a 41 year old female who had a type II/type I 0.5 diabetes for the last 15 years. A while back she developed an ulcer near the pinky toe of her right foot. She was just discharged from this hospital on July 26 for treatment of associated cellulitis. She was on IV Rocephin as an outpatient, and completed that. However, her foot has become progressively more swollen and more tender over the last several days. She presented to wound care clinic today for follow-up, and was immediately sent to the emergency room. She notes she has been having fevers and chills for several days. She notes only minimal drainage from her foot wound. She does check blood sugars 4 times a day, and says her normal is between 102 100, but she has been running 300-500 lately. ER evaluation showed marked leukocytosis, severe hyperglycemia with other electrolyte abnormalities, elevated anion gap. requested that she be admitted for IV antibiotics, and probable wound debridement in the morning. Otherwise, the patient denies headaches or dizziness, new eye or ear symptoms, sore throat or shortness of breath. She has had a cough for about a week, which is minimally productive. She has had some intermittent nausea and vomiting over the last several days. She denies chest pain or palpitations, abdominal pain, diarrhea or constipation, dysuria. Medical history: Diabetes, diagnosed in 2004, type I, uncontrolled, diagnosed 2004. Diabetic neuropathy Chronic pain History of hyperosmolar nonketotic state Hyperlipidemia Headaches HSV infection History of hypothyroidism, no longer in replacement Depression Tobacco abuse. Reaction to vancomycin, with altered mental status, hypoxia, hypotension next History of HHS and peripheral neuropathy Surgical history: Status post bilateral tubal ligation Status post appendectomy Status post cholecystectomy Status post right foot surgery this past Monday Pertinent family history: Diabetes mellitus in her mother, brother and 2 sisters. 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 She recently moved to the [place] from [place]. She states she is smoking about one cigarette daily. No alcohol use. She denies any recreational drug use. Medical - H&P: Meds Home Medications Medication Instructions Recorded Confirmed Type traMADol [Ultram] 50 mg PO Q6HP PRN 02/08/17 08/01/17 History HYDROcodone/APAP 10/325MG [Ponce 1 - 2 tab PO Q4H PRN 04/20/17 08/01/17 History 10/325Mg] traZODone HCL [Desyrel] 50 mg PO HS 04/20/17 08/01/17 History Gabapentin 800 mg PO TID #90 tab 06/08/17 08/01/17 Rx Insulin Aspart [Novolog] See Protocol SQ ACHS #1 each 06/08/17 08/01/17 Rx Insulin Glargine,Hum.rec.anlog 50 unit SQ BID #1 each 06/08/17 08/01/17 Rx [Lantus Solostar] Insulin Lispro [Humalog] 10 unit SQ AC #1 each 06/08/17 08/01/17 Rx Cyclobenzaprine [Flexeril] 10 mg PO TID 08/01/17 08/01/17 History Oxandrolone [Oxandrin] 5 mg PO DAILY 08/01/17 08/01/17 History Allergies Allergy/AdvReac Type Severity Reaction Status Date / Time Iodinated Contrast- Oral and Allergy Severe Unknown Verified 08/01/17 16:14 IV Dye metformin Allergy Severe Unknown Verified 08/01/17 16:14 Amoxicillin Allergy Intermediate Unknown Verified 08/01/17 16:14 fluoxetine [From Prozac] Allergy Intermediate Unknown Verified 08/01/17 16:14 methocarbamol Allergy Intermediate Unknown Verified 08/01/17 16:14 Paroxetine [From Paxil] Allergy Intermediate Unknown Verified 08/01/17 16:14 Sulfa (Sulfonamide Allergy Intermediate Unknown Verified 08/01/17 16:14 Antibiotics) ketorolac [From Toradol] AdvReac Intermediate Vomiting Verified 07/22/17 15:22 NSAIDS (Non-Steroidal AdvReac Intermediate Vomiting Verified 07/22/17 15:22 Anti-Inflamma metoclopramide [From Reglan] AdvReac Mild Shakiness Verified 07/24/17 20:20 morphine AdvReac Mild Headache Verified 07/24/17 20:20 promethazine [From Phenergan] AdvReac Mild Shakiness Verified 07/24/17 20:20 vancomycin AdvReac Mild Unknown Verified 07/24/17 20:20 Medical - H&P: Exam - Constitutional Vitals: Temp Pulse Resp BP Pulse Ox 98.9 F 95 H 16 128/91 98 08/01/17 16:01 08/01/17 17:34 08/01/17 17:34 08/01/17 17:34 08/01/17 17:34 Heart rate varies from 95-122, respiratory rate varies 16-24. She is a well-developed well-nourished female in no acute distress. Head: Normocephalic, atraumatic. Eyes: PERRLA, EOMI, anicteric. Ears: TMs and canals are clear. Pharynx: Pharynx is clear. She has full upper and lower plates. Neck: Is supple, without obvious adenopathy, thyromegaly, bruits, JVD. Heart exam shows regular rate and rhythm with normal S1 and S2, without murmurs rubs or gallops. Lungs are clear to auscultation, without rales, rhonchi, wheezes. Abdomen: Is soft and nontender without obvious masses. Bowel sounds are active. Extremities: Lower extremity shows no cyanosis, clubbing, edema. Right lower extremity: Right foot is moderately swollen. There is an open wound near the pinky toe. There is no significant drainage. She has at least 2 scars, that are well-healed, from previous surgeries. Her right foot is quite exquisitely tender to touch. Neurologic exam: Is not tested in detail, but is grossly nonfocal. Medical - H&P: Reslt - Labs CBC & Chem 7: 08/01/17 16:30 08/01/17 16:30 Labs: Short CBC 08/01/17 Range/Units 16:30 WBC 16.5 H (4.5-11.0) K/mcL Hgb 13.7 (12.0-15.0) g/dL Hct 40.4 (36.0-48.0) % Plt Count 497 H (140-440) K/mcL BMP 08/01/17 16:30 Sodium 128 L Potassium 4.3 Chloride 88 L Carbon Dioxide 23 BUN 13 Creatinine 1.0 Glucose 664 H* Calcium 9.1 Liver Function 08/01/17 Range/Units 16:30 Total Bilirubin 0.4 (0.0-1.0) mg/dL AST 21 (0-37) U/l ALT 27 (0-40) U/l Alkaline Phosphatase 180 H (39-117) U/L Albumin 4.7 (3.2-5.2) gm/dL August 01: ABG: On room air: PH 7.41, PCO2 of 43, PO2 66, bicarb 27, O2 saturation 93% Hemoglobin A1c: Elevated at 11.6% Total protein is elevated at 8.9, globulin elevated at 4.2 next Urinalysis: Pending Right foot x-ray: Diffuse soft tissue swelling compatible with cellulitis. No obvious osteomyelitis. July 22: Urine culture grew E. coli, pansensitive Medical - H&P: A/P (1) Hyperosmolar non-ketotic state in patient with type 2 diabetes mellitus Current visit: No Status: Acute (2) Cellulitis and abscess of foot Problem details: S/P I/D of abxcess with surgical debridement about a week ago at [facility]. Plan: On going wound care and check non invasive vascular studies. TBI and Sensilase. Current visit: Yes Status: Acute (3) Hyponatremia Current visit: No Status: Acute (4) Diabetes mellitus with foot ulcer due to multiple causes Problem details: Continue current wound care for right foot plantar ulcer and fungal infection between toes. Current visit: No Status: Chronic - Narrative A/P Narrative: #1. Infectious disease. Patient presents with uncontrolled diabetic foot infection. She is status post inpatient treatment earlier this month. She now presents with worsening infection, leukocytosis, tachycardia, uncontrolled diabetes. -Admit for more aggressive treatment. -Start IV linezolid, per Dr. Nichols. -Wound care consult, probable debridement in the morning. -N.p.o. after midnight. -Pain medications and antiemetics as needed. 2. Endocrine. Uncontrolled type I/II diabetes. Nonketotic hyperosmolar syndrome. -She was given insulin in the emergency room. Continue q. 4 hour Accu-Cheks, sliding scale insulin. If ineffective, start insulin drip. -Continue subcu Lantus twice daily. Hypothyroidism. Elevated TSH earlier this month. Continue levothyroxine. Recheck. 3. GI. Enlarged liver and abnormal LFTs, while taking an anabolic steroid. -Hold steroids. This is a high risk medication. 4. Hematologic. She presents with elevated protein and globulin levels, in addition to leukocytosis and thrombocytosis. -Continue to monitor. If these findings persist, she will require further workup. 5. CODE STATUS: Full code. 6. DVT prophylaxis: Subcu heparin. 7. Chronic pain. Continue home medications, Flexeril, tramadol, hydrocodone or oxycodone, gabapentin. 8. Psychiatric. History of depression. -Continue Lexapro, gabapentin, trazodone
[2017-08-01] MEDS ORDERED: ONDANSETRON 4 MG/2 ML VIAL IV PRN (20:01)
[2017-08-01] MEDS ORDERED: MAGNESIUM HYDROXIDE 30 ML ORAL.SUSP PO PRN (20:01)
[2017-08-01] MEDS ORDERED: ACETAMINOPHEN 325 MG TABLET PO PRN (20:01)
[2017-08-01] MEDS ORDERED: oxyCODONE/APAP 5/325MG TABLET PO PRN (20:01)
[2017-08-01] MEDS ORDERED: NALOXONE HCL 0.4 MG/ML VIAL IV PRN (20:01)
[2017-08-01] MEDS ORDERED: DEXTROSE 50% 50 ML VIAL IV PRN (20:01)
[2017-08-01] MEDS ORDERED: DOCUSATE SODIUM 100 MG CAPSULE PO PRN (20:01)
[2017-08-01] MEDS: NACL 0.9% W/KCL 20MEQ 1,000 ML IV SCH (20:15)
[2017-08-01] MEDS: traMADol 50 MG TABLET PO PRN (21:14)
[2017-08-01] MEDS: INSULIN GLARGINE, HUMAN 1 UNIT/0.01 ML SQ SCH (21:16)
[2017-08-01] MEDS: INSULIN LISPRO 1 UNIT/0.01 ML UNIT SQ SCH (21:16)
[2017-08-01] MEDS: traZODone HCL 50 MG TABLET PO SCH (21:16)
[2017-08-01] MEDS: 0.9 % SODIUM CHLORIDE 10 ML SYRINGE IV SCH (21:16)
[2017-08-01] MEDS: HEPARIN 5,000 UNIT/ML VIAL SQ SCH (21:16)
[2017-08-01] MEDS: GABAPENTIN 400 MG CAPSULE PO SCH (21:25)
[2017-08-01] MEDS: HYDROmorphone 2 MG/ML SYRINGE IV PRN (23:26)
[2017-08-01] MEDS: CYCLOBENZAPRINE 10 MG TABLET PO SCH (23:27)
--- NOTE | 2017-08-01 23:57 | Emergency Department Note ---
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 I have reviewed lab tests and evaluated patient and agree with the admission
[2017-08-02] MEDS: INSULIN LISPRO 1 UNIT/0.01 ML UNIT SQ SCH ×11 (00:45→20:05)
[2017-08-02] MEDS: HYDROmorphone 2 MG/ML SYRINGE IV PRN ×7 (02:05→22:14)
[2017-08-02] MEDS: NACL 0.9% W/KCL 20MEQ 1,000 ML IV SCH ×3 (06:10→16:41)
[2017-08-02] MEDS: 0.9 % SODIUM CHLORIDE 10 ML SYRINGE IV SCH ×3 (06:10→20:38)
[2017-08-02 06:52] LABS: ALT/SGPT 21 U/l (0-40); Albumin/Globulin Ratio 1.1 (1.0-2.3); Alkaline Phosphatase 140 U/L (39-117); Bilirubin,Direct < 0.2 mg/dL (0.0-0.3); Blood Urea Nitrogen 15 mg/dl (6-20); Gamma Glutamyl Transpeptidase 72 U/L (5-36); Magnesium 2.1 mg/dL (1.6-2.5); Uric Acid 5.4 mg/dL (2.5-8.0)
[2017-08-02] MEDS: INSULIN GLARGINE, HUMAN 1 UNIT/0.01 ML SQ SCH ×2 (08:57→20:29)
[2017-08-02] MEDS: GABAPENTIN 400 MG CAPSULE PO SCH ×3 (08:58→20:28)
[2017-08-02] MEDS: CYCLOBENZAPRINE 10 MG TABLET PO SCH ×3 (08:59→20:28)
[2017-08-02] MEDS ORDERED: LINEZOLID 600 MG/300 ML BAG IV SCH (09:00)
--- NOTE | 2017-08-02 09:01 | General Surgery Consult Note ---
History of Present Illness Patient information: Note initiated : 08/02/17 at 8:58 am Service Date, if different from initiated Date: [] Patient: Jeanette Gonzalez 41 y/o F admitted on 08/01/17 for right foot infection, needs admit for surgery tmrw. Chief Complaint: [] Consult date: 08/02/17 Requesting physician: Kalyani Wakefield History of present illness: I saw the chart and examined this patient. Admitted via ER with CSSSI Cellulitis Right 5 toe with diabetes complications and possible UTI with yeast in urine. Patient is will known all the staff at [facility]. This is one of her multiple admissions. She presented to wound care clinic last evening, with severe pain, SEPSIS, cellulitis and fever with N/V. Sent to the ER worked up and now admitted to Med Surg floor. I have reviewed the results of lab work and seen X Ray of right foot. . She went to [facility] ER yesterday. She was given IV fluids and antibiotics. Medications and Allergies Home Medications Medication Instructions Recorded Confirmed Type traMADol [Ultram] 50 mg PO Q6HP PRN 02/08/17 08/01/17 History HYDROcodone/APAP 10/325MG [[place] 1 - 2 tab PO Q4H PRN 04/20/17 08/01/17 History 10/325Mg] traZODone HCL [Desyrel] 50 mg PO HS 04/20/17 08/01/17 History Gabapentin 800 mg PO TID #90 tab 06/08/17 08/01/17 Rx Insulin Aspart [Novolog] See Protocol SQ ACHS #1 each 06/08/17 08/01/17 Rx Insulin Glargine,Hum.rec.anlog 50 unit SQ BID #1 each 06/08/17 08/01/17 Rx [Lantus Solostar] Insulin Lispro [Humalog] 10 unit SQ AC #1 each 06/08/17 08/01/17 Rx Cyclobenzaprine [Flexeril] 10 mg PO TID 08/01/17 08/01/17 History Oxandrolone [Oxandrin] 5 mg PO DAILY 08/01/17 08/01/17 History Allergies Allergy/AdvReac Type Severity Reaction Status Date / Time Iodinated Contrast- Oral and Allergy Severe Unknown Verified 08/01/17 16:14 IV Dye metformin Allergy Severe Unknown Verified 08/01/17 16:14 Amoxicillin Allergy Intermediate Unknown Verified 08/01/17 16:14 fluoxetine [From Prozac] Allergy Intermediate Unknown Verified 08/01/17 16:14 methocarbamol Allergy Intermediate Unknown Verified 08/01/17 16:14 Paroxetine [From Paxil] Allergy Intermediate Unknown Verified 08/01/17 16:14 Sulfa (Sulfonamide Allergy Intermediate Unknown Verified 08/01/17 16:14 Antibiotics) ketorolac [From Toradol] AdvReac Intermediate Vomiting Verified 07/22/17 15:22 NSAIDS (Non-Steroidal AdvReac Intermediate Vomiting Verified 07/22/17 15:22 Anti-Inflamma metoclopramide [From Reglan] AdvReac Mild Shakiness Verified 07/24/17 20:20 morphine AdvReac Mild Headache Verified 07/24/17 20:20 promethazine [From Phenergan] AdvReac Mild Shakiness Verified 07/24/17 20:20 vancomycin AdvReac Mild Unknown Verified 07/24/17 20:20 Exam Temp Pulse Resp BP Pulse Ox 97.3 F 93 H 12 110/75 94 08/02/17 08:00 08/02/17 08:00 08/02/17 08:00 08/02/17 08:00 08/02/17 08:00 - General physical appearance well developed, well nourished, no distress, other (ANXIOUS. wants the painul toe to be debrided and / or amputated if necessary.) - Eyes PERRL, normal ocular movement - ENT normal pinna, normal nares, normal mucosa, no congestion - Head Head exam IM: Present: atraumatic, normal inspection, normocephalic - Neck no masses, no bruits, trachea midline, no venous distension - Cardiovascular Cardiovascular exam IM: Present: normal rate and rhythm - Respiratory normal expansion, normal respiratory effort, clear to auscultation - Abdomen Abdomen: Present: soft, non tender, bowel sounds - Integumentary Present: other (Ceelultis with soft tissue mass around base of right 5 th toe. Fluctuant and edema extending to dorsal surface) - Neurologic Present: other (No focal neurologic deficits on gross assessment. She diabetes with peripheral neuropathy of both feet,) - Musculoskeletal Present: other (NWB right foot. ) - Psychiatric Present: oriented to time, oriented to person, oriented to place, speech is normal, memory intact, other (ANXIOUS) Results - Labs 08/02/17 08:33 08/02/17 04:30 Abnormal lab results 08/01/17 08/01/17 08/01/17 Range/Units 16:30 16:30 19:05 WBC 16.5 H (4.5-11.0) K/mcL Plt Count 497 H (140-440) K/mcL MPV 6.6 L (7.4-10.4) fL Sodium 128 L (133-145) mmol/L Chloride 88 L (96-108) mmol/L Anion Gap 17.0 H (8-16) Glucose 664 H* (70-105) mg/dL Hemoglobin A1c 11.6 H (4.0-6.0) % HGB GGT (5-36) U/L Alkaline Phosphatase 180 H (39-117) U/L Total Protein 8.9 H (5.9-8.4) gm/dL Globulin 4.2 H (2.2-3.7) gm/dL Triglycerides (<150) mg/dl Urine Glucose (UA) >=500 A (NEG) mg/dL Urine Occult Blood >=1.0 A (<0.03) mg/dL Urine RBC 178 H (0-1) /hpf Urine Yeast (Budding) Few A (0) /hpf 08/02/17 Range/Units 04:30 WBC (4.5-11.0) K/mcL Plt Count (140-440) K/mcL MPV (7.4-10.4) fL Sodium (133-145) mmol/L Chloride (96-108) mmol/L Anion Gap (8-16) Glucose 196 H (70-105) mg/dL Hemoglobin A1c (4.0-6.0) % HGB GGT 72 H (5-36) U/L Alkaline Phosphatase 140 H (39-117) U/L Total Protein (5.9-8.4) gm/dL Globulin 3.8 H (2.2-3.7) gm/dL Triglycerides 340 H (<150) mg/dl Urine Glucose (UA) (NEG) mg/dL Urine Occult Blood (<0.03) mg/dL Urine RBC (0-1) /hpf Urine Yeast (Budding) (0) /hpf Diabetes panel 08/01/17 08/02/17 Range/Units 16:30 04:30 Sodium 128 L 139 (133-145) mmol/L Potassium 4.3 4.1 (3.3-5.1) mmol/L Chloride 88 L 102 (96-108) mmol/L Carbon Dioxide 23 22 (22-30) mmol/L BUN 13 15 (6-20) mg/dl Creatinine 1.0 0.9 (0.6-1.1) mg/dl Glucose 664 H* 196 H (70-105) mg/dL Hemoglobin A1c 11.6 H (4.0-6.0) % HGB Calcium 9.1 9.1 (8.6-10.4) mg/dl AST 21 20 (0-37) U/l ALT 27 21 (0-40) U/l Alkaline Phosphatase 180 H 140 H (39-117) U/L Total Protein 8.9 H 7.8 (5.9-8.4) gm/dL Albumin 4.7 4.0 (3.2-5.2) gm/dL Triglycerides 340 H (<150) mg/dl Calcium panel 08/01/17 08/02/17 Range/Units 16:30 04:30 Calcium 9.1 9.1 (8.6-10.4) mg/dl Phosphorus 3.9 (2.7-4.5) mg/dL Albumin 4.7 4.0 (3.2-5.2) gm/dL Pituitary panel 08/01/17 08/02/17 Range/Units 16:30 04:30 Sodium 128 L 139 (133-145) mmol/L Potassium 4.3 4.1 (3.3-5.1) mmol/L Chloride 88 L 102 (96-108) mmol/L Carbon Dioxide 23 22 (22-30) mmol/L BUN 13 15 (6-20) mg/dl Creatinine 1.0 0.9 (0.6-1.1) mg/dl Glucose 664 H* 196 H (70-105) mg/dL Calcium 9.1 9.1 (8.6-10.4) mg/dl Adrenal panel 08/01/17 08/02/17 Range/Units 16:30 04:30 Sodium 128 L 139 (133-145) mmol/L Potassium 4.3 4.1 (3.3-5.1) mmol/L Chloride 88 L 102 (96-108) mmol/L Carbon Dioxide 23 22 (22-30) mmol/L BUN 13 15 (6-20) mg/dl Creatinine 1.0 0.9 (0.6-1.1) mg/dl Glucose 664 H* 196 H (70-105) mg/dL Calcium 9.1 9.1 (8.6-10.4) mg/dl Total Bilirubin 0.4 0.2 (0.0-1.0) mg/dL AST 21 20 (0-37) U/l ALT 27 21 (0-40) U/l Alkaline Phosphatase 180 H 140 H (39-117) U/L Total Protein 8.9 H 7.8 (5.9-8.4) gm/dL Albumin 4.7 4.0 (3.2-5.2) gm/dL All other labs normal. Assessment and Plan (1) Sepsis affecting skin Assessment : Uncontrolled diabetes with CSSSI Right 5 to toe and SEPSIS Patient hydrated, started on IV / PO Antibiotics, insulin and blood sugars now under 200. Plan: For OR debridement, possible right fifth toe amputation. I/R/B/C AND ALTERNATIVES DISCUSSED IN THE PRESENCE OF NURSING STAFF. ALL QUESTIONS ANSWERED. INFORMED CONSENT OBTAINED FOR SURGERY. Status: Acute Priority: High Comment: CSSSI right 5 th toe. ? Necrotizing skin infection Abscess with superimposed cellulitis. Needs OR debridement, possible toe amputation.
[2017-08-02] MEDS: LINEZOLID 600 MG TABLET PO SCH ×2 (09:02→20:28)
[2017-08-02] MEDS: HEPARIN 5,000 UNIT/ML VIAL SQ SCH ×2 (09:13→20:29)
[2017-08-02 09:34] LABS: Basophils # (Auto) 0.1 K/mcL (0.0-0.3); Basophils % (Auto) 0.5 % (0.0-2.0); Eosinophils # (Auto) 0.5 K/mcL (0.0-0.7); Granulocytes % (Auto) 53.9 % (38.0-78.0); Lymphocytes # (Auto) 4.2 K/mcL (1.5-4.8); Lymphocytes % (Auto) 36.9 % (15.5-49.0); Mean Cell Volume 91.2 fL (80.0-100.0); Mean Corpuscular HGB Conc 33.8 g/dL (31.0-36.0); Mean Corpuscular Hemoglobin 30.8 pg (26.0-34.0); Monocytes # (Auto) 0.5 K/mcL (0.1-0.9); Monocytes % (Auto) 4.7 % (1.0-12.0); Platelet Count 437 K/mcL (140-440); RBC 3.98 M/mcL (4.00-5.20)
[2017-08-02] MEDS ORDERED: PROPOFOL 200 MG/20 ML VIAL IV ONE (10:20)
[2017-08-02] MEDS ORDERED: MIDAZOLAM 5 MG/5 ML VIAL IV ONE (10:20)
[2017-08-02] MEDS ORDERED: fentaNYL 100 MCG/2 ML VIAL IV ONE (10:20)
--- NOTE | 2017-08-02 11:06 | Brief Operative Note ---
Date of procedure: 08/02/17 Pre-op diagnosis: SEPSIS, Diabetes, Rt % the toe CSSSI Post-op diagnosis: same Procedure: Debridement of Right 5 th toe via dorsal incision, fasciotomy, tissue sample for c/s OPEN packing. Grafts/Implants: No Anesthesia: MAC Findings: Closed space infection without purulence. SOFT tissue edema with increased compartment pressure dorsal lateral surface of right foot. Complications: none Surgeon: Skyler Nichols Estimated blood loss (cc): 3 Specimens Removed/Pathology: other Condition: stable Disposition: floor (Procedure well tolerated.)
[2017-08-02] MEDS ORDERED: LIDOCAINE 1% 20 ML VIAL SQ ONE (11:57)
[2017-08-02] MEDS ORDERED: BUPIVACAINE 0.25% 50 ML VIAL IJ ONE (11:57)
--- NOTE | 2017-08-02 12:09 | Operative Note ---
DATE OF OPERATION: 08/02/2017 PREOPERATIVE DIAGNOSES: 1. Sepsis syndrome. 2. Uncontrolled diabetes. 3. Right fifth toe complicated skin and skin structure infection. POSTOPERATIVE DIAGNOSES: 1. Sepsis syndrome. 2. Uncontrolled diabetes. 3. Right fifth toe complicated skin and skin structure infection. OPERATION: Debridement of right fifth toe wire dorsal incision limited fasciotomy, tissue samples for cultures and sensitivity, open packing. SURGEON: Skyler Nichols MD ANESTHESIOLOGIST: Phil Payne CRNA. INTRAOPERATIVE FINDINGS: Compartment syndrome closed infection without purulence, soft tissue edema dorsal aspect of right foot extending up to the anterior ankle area. COMPLICATIONS: None. BLOOD LOSS: 3 mL PROCEDURE IN DETAIL: After obtaining informed consent, patient was taken to the operating room. Timeout was called. Preoperative photograph was taken. The right foot fifth toe, ankle and leg were widely cleaned, prepped and draped in a standard fashion. First, local anesthetic 1% Xylocaine and 0.25% Marcaine without epinephrine was widely injected widely around and under the fifth toe area and in a field block fashion starting at the level of the anterior ankle and extending up to the lateral border of the foot towards the base of the metatarsal bone. First, we used a 5 cc syringe with 18 gauge needle. Deep tissue aspiration was carried out. This was revealed old clotted blood and tissue debris. There was no evidence of any purulence. This specimen was sent for gram stain and cultures. The callus around the plantar aspect of the toe was carefully excised. There was no open ulceration of the deep tissue We made a longitudinal incision along the site of aspiration. This was carried out between the fourth and fifth toes for about 4 cm to 5 cm. Skin was incised with #15 scalpel blade. Sharp dissection was carried out through the subcutaneous tissues onto the deep fascia. Later a longitudinal incision was made again over the musculature between the fifth and fourth metatarsal bones. Careful blunt and sharp dissection was carried out. The deep space between the interosseous area was explored. Careful selective debridement was carried out in a longitudinal fashion. Post-debridement photographs were taken. After adequate fasciotomy and release of pressure, we irrigated this multiple times with normal saline containing bacitracin, gentamicin and clindamycin solutions. This was packed open with 1/4 inch plain gauze. Additional gauze pieces were placed between the toes and the packing was reinforced with AMD Kerlix gauze, Kerlix bandage and NAI bandages respectively. Estimated blood loss was under 3 mL. Count of swabs, instruments and needles was reported to be correct. The procedure was well tolerated. She recovered from anesthesia uneventfully. She was taken to and then on to the med/surg floor in stable condition. Postoperatively, I called patient's mother, Alejandra at [phone]. VD:jacquie Job ID: [id number] Doc ID: [id number] Skyler COOK
--- NOTE | 2017-08-02 20:18 | Internal Med Progress Note ---
Medical - PN: Subj Patient information: Note initiated : 08/02/17 at 8:14 pm Patient: Jeanette Gonzalez 41 y/o F admitted on 08/01/17 for Right Foot Infection/ Cellulitis & Abscess of Foot. Interval history: August 01, 2017: History of present illness: Ms. Gonzalez is a 41 year old female who had a type II/type I 0.5 diabetes for the last 15 years. A while back she developed an ulcer near the pinky toe of her right foot. She was just discharged from this hospital on July 26 for treatment of associated cellulitis. She was on IV Rocephin as an outpatient, and completed that. However, her foot has become progressively more swollen and more tender over the last several days. She presented to wound care clinic today for follow-up, and was immediately sent to the emergency room. She notes she has been having fevers and chills for several days. She notes only minimal drainage from her foot wound. She does check blood sugars 4 times a day, and says her normal is between 102 100, but she has been running 300-500 lately. ER evaluation showed marked leukocytosis, severe hyperglycemia with other electrolyte abnormalities, elevated anion gap. requested that she be admitted for IV antibiotics, and probable wound debridement in the morning. Otherwise, the patient denies headaches or dizziness, new eye or ear symptoms, sore throat or shortness of breath. She has had a cough for about a week, which is minimally productive. She has had some intermittent nausea and vomiting over the last several days. She denies chest pain or palpitations, abdominal pain, diarrhea or constipation, dysuria. August 02: The patient underwent I&D of her right foot today. That apparently went quite well. She has been stable postoperatively. She reports she continues to have quite a bit of pain in spite of IV Dilaudid. She thinks she missed a dose of Flexeril today and may be a dose of gabapentin as well. Otherwise she denies fever chills chest pain or shortness of breath GI or symptoms. - Constitutional Vitals: Vital Signs Temp Pulse Resp BP Pulse Ox 98 F 98 H 16 113/86 96 08/02/17 16:00 08/02/17 14:26 08/02/17 16:00 08/02/17 16:00 08/02/17 19:00 Period Temp Pulse Resp BP Sys/Santiago Pulse Ox Last 24 Hr 95.7 F-98 F 88-110 10- 104-128/70-90 93-97 Intake and Output 08/02/17 08/02/17 08/02/17 05:59 13:59 21:59 Intake Total 2280 / 2280 1000 / 1000 Output Total 75 / 75 1200 / 1200 Balance 2205 / 2205 -200 / -200 Intake & Output: Intake & Output 08/02/17 08/02/17 08/02/17 05:59 13:59 21:59 Intake Total 2280 / 2280 1000 / 1000 Output Total 75 / 75 1200 / 1200 Balance 2205 / 2205 -200 / -200 Intake: IV 1800 / 1800 1000 / 1000 Sodium Chloride 0.9% 1,000 ml @ 800 / 800 Wide Open IV BOLUS ONE Rx#: [id number] NaCl 0.9% W/KCl 20Meq 1000ML 1, 1000 / 1000 1000 / 1000 000 ml @ 125 mls/hr IV .Q8H CHRISTINA Rx#:[id number] Oral 480 / 480 Output: Void Amount 75 / 75 1200 / 1200 Other: Meal Jello, ice cream, crackers Percent of Meal Consumed 100% Feeding Ability Independent # Voids 1 # Bowel Movements 1 She is awake and alert, and smiling. Neck is supple without obvious JVD. Cardiac exam shows regular rate and rhythm. Lungs are clear to auscultation. Abdomen is soft. Left foot looks fine. Right foot is heavily bandaged and still quite swollen. Medical - PN: Obj Da - Labs CBC & Chem 7: 08/03/17 05:18 08/03/17 05:18 Labs: Abnormal Lab Results 08/02/17 08/02/17 08/01/17 08:33 04:30 19:05 WBC 11.3 H RBC 3.98 L Plt Count MPV 6.5 L Sodium Chloride Anion Gap Glucose 196 H Hemoglobin A1c GGT 72 H Alkaline Phosphatase 140 H Total Protein Globulin 3.8 H Triglycerides 340 H Urine Glucose (UA) >=500 A Urine Occult Blood >=1.0 A Urine RBC 178 H Urine Yeast (Budding) Few A 08/01/17 08/01/17 16:30 16:30 WBC 16.5 H RBC Plt Count 497 H MPV 6.6 L Sodium 128 L Chloride 88 L Anion Gap 17.0 H Glucose 664 H* Hemoglobin A1c 11.6 H GGT Alkaline Phosphatase 180 H Total Protein 8.9 H Globulin 4.2 H Triglycerides Urine Glucose (UA) Urine Occult Blood Urine RBC Urine Yeast (Budding) August 01: CBC: White blood cell count 16,500, hemoglobin 13, platelets 497,000. Chemistry panel: Sodium 128, potassium 4.3, chloride 88, CO2 23, anion gap 17, BUN 13, creatinine 1.0, glucose 664 Alk phos 180, total protein 8.9, globulin 4.2 ABG: On room air: PH 7.41, PCO2 of 43, PO2 66, bicarb 27, O2 saturation 93% Hemoglobin A1c: Elevated at 11.6% Total protein is elevated at 8.9, globulin elevated at 4.2 next Urinalysis: Shows greater than 500 mg of glucose, 178 red blood cells, a few budding yeast. Right foot x-ray: Diffuse soft tissue swelling compatible with cellulitis. No obvious osteomyelitis. July 22: Urine culture grew E. coli, pansensitive Meds: Medications Acetaminophen (Tylenol) 650 mg PO Q6HP PRN PRN Reason: PAIN/FEVER > 101 Cyclobenzaprine HCl (Flexeril) 10 mg PO TID [facility] Last Admin: 08/02/17 15:14 Dose: 10 mg Dextrose (Dextrose 50%) 0 ml IV UD PRN PRN Reason: Hypoglycemia Diagnostic Test (Pha) (Accu-Chek) 1 each FS ACHS [facility] Last Admin: 08/02/17 20:03 Dose: 1 each Docusate Sodium (Colace) 100 mg PO BIDP PRN PRN Reason: Constipation Gabapentin (Neurontin) 800 mg PO TID [facility] Last Admin: 08/02/17 15:15 Dose: 800 mg Heparin Sodium (Porcine) (Heparin) 5,000 unit SQ Q12 [facility] Last Admin: 08/02/17 09:13 Dose: Not Given Hydromorphone HCl (Dilaudid) 1 mg IV Q2HP PRN PRN Reason: Pain Last Admin: 08/02/17 19:38 Dose: 1 mg Potassium Chloride/Sodium Chloride (Nacl 0.9% W/Kcl 20meq 1000ml) 1,000 mls @ 125 mls/hr IV .Q8H [facility] Last Admin: 08/02/17 16:41 Dose: 125 mls/hr Insulin Glargine (Lantus) 50 unit SQ BID [facility] Last Admin: 08/02/17 08:57 Dose: 10 unit Insulin Human Lispro (Humalog) 10 unit SQ AC [facility] Last Admin: 08/02/17 15:39 Dose: 10 unit Insulin Human Lispro (Humalog) 0 unit SQ ACHS [facility] PRN Reason: Protocol Last Admin: 08/02/17 20:05 Dose: 10 unit Linezolid (Zyvox) 600 mg PO BID [facility] Last Admin: 08/02/17 09:02 Dose: 600 mg Magnesium Hydroxide (Milk Of Magnesia) 30 ml PO DAILYP PRN PRN Reason: Constipation Naloxone HCl (Narcan) 0.1 mg IV Q2MIN PRN PRN Reason: Opiate Reversal Ondansetron HCl (Zofran) 4 mg IV Q4HP PRN PRN Reason: Nausea And Vomiting Oxycodone/Acetaminophen (Percocet 5-325 Mg) 1 tab PO Q4HP PRN PRN Reason: Pain Last Admin: 08/01/17 21:15 Dose: 1 tab Sodium Chloride (Saline Flush) 10 ml IV Q8 [facility] Last Admin: 08/02/17 14:46 Dose: Not Given Tramadol HCl (Ultram) 50 mg PO Q6HP PRN PRN Reason: Pain Last Admin: 08/01/17 21:14 Dose: 50 mg Trazodone HCl (Desyrel) 50 mg PO HS [facility] Last Admin: 08/01/17 21:16 Dose: 50 mg Medical - PN: A/P - Time Spent With Patient Total time spent is greater than 50% in coordination of care (as documented) at patient's floor/unit and/or counseling patient: 15 - 24 minutes (1) Hyperosmolar non-ketotic state in patient with type 2 diabetes mellitus Status: Acute Current Visit: No (2) Cellulitis and abscess of foot Problem details: S/P I/D of abxcess with surgical debridement about a week ago at [facility]. Plan: On going wound care and check non invasive vascular studies. TBI and Sensilase. Status: Acute Current Visit: Yes (3) Hyponatremia Status: Acute Current Visit: No (4) Diabetes mellitus with foot ulcer due to multiple causes Problem details: Continue current wound care for right foot plantar ulcer and fungal infection between toes. Status: Chronic Current Visit: No - Narrative A/P Narrative: #1. Infectious disease. Patient presents with uncontrolled diabetic foot infection. She is status post inpatient treatment earlier this month. She now presents with worsening infection, leukocytosis, tachycardia, uncontrolled diabetes. -Patient is status post I&D, which went well. -She was changed to oral linezolid today. Continue local wound care. 2. Endocrine. Uncontrolled type I/II diabetes. Nonketotic hyperosmolar syndrome. Accu-Cheks are ranging from 125-313 today. She had a much lower dose than usual of Lantus this morning, preop. Continue to monitor and cover with sliding scale. -Continue subcu Lantus twice daily. Hypothyroidism. Elevated TSH earlier this month. Continue levothyroxine. Recheck. 3. GI. Enlarged liver and abnormal LFTs, while taking an anabolic steroid. -Hold steroids. This is a high risk medication. 4. Hematologic. She presents with elevated protein and globulin levels, in addition to leukocytosis and thrombocytosis. -Continue to monitor. Improving. 5. CODE STATUS: Full code. 6. DVT prophylaxis: Subcu heparin. 7. Chronic pain. Continue home medications, Flexeril, tramadol, hydrocodone or oxycodone, gabapentin. 8. Psychiatric. History of depression. -Continue Lexapro, gabapentin, trazodone
[2017-08-02] MEDS: traMADol 50 MG TABLET PO PRN (20:27)
[2017-08-02] MEDS: traZODone HCL 50 MG TABLET PO SCH (20:28)
[2017-08-02] MEDS: HYDROcodone/APAP 10/325MG TABLET PO PRN (20:37)
[2017-08-02] MEDS ORDERED: CYCLOBENZAPRINE 10 MG TABLET PO SCH (21:00)
[2017-08-03] MEDS: HYDROcodone/APAP 10/325MG TABLET PO PRN ×5 (00:32→22:17)
[2017-08-03] MEDS: HYDROmorphone 2 MG/ML SYRINGE IV PRN ×5 (00:33→10:47)
[2017-08-03] MEDS: NACL 0.9% W/KCL 20MEQ 1,000 ML IV SCH ×4 (01:00→15:57)
[2017-08-03] MEDS: 0.9 % SODIUM CHLORIDE 10 ML SYRINGE IV SCH ×3 (05:12→21:04)
[2017-08-03 07:27] LABS: Basophils # (Auto) 0 K/mcL (0.0-0.3); Basophils % (Auto) 0.4 % (0.0-2.0); Eosinophils # (Auto) 0.3 K/mcL (0.0-0.7); Eosinophils % (Auto) 3.1 % (0.0-7.0); Granulocytes % (Auto) 63.5 % (38.0-78.0); Lymphocytes # (Auto) 3.2 K/mcL (1.5-4.8); Lymphocytes % (Auto) 28.5 % (15.5-49.0); Mean Cell Volume 91.7 fL (80.0-100.0); Mean Corpuscular HGB Conc 34.1 g/dL (31.0-36.0); Mean Corpuscular Hemoglobin 31.3 pg (26.0-34.0); Monocytes # (Auto) 0.5 K/mcL (0.1-0.9); Monocytes % (Auto) 4.5 % (1.0-12.0); Platelet Count 364 K/mcL (140-440); RBC 3.56 M/mcL (4.00-5.20); Red Cell Distribution Width 13.4 % (11.5-14.5)
[2017-08-03 07:56] LABS: ALT/SGPT 23 U/l (0-40); Albumin 3.4 gm/dL (3.2-5.2); Albumin/Globulin Ratio 1.1 (1.0-2.3); Alkaline Phosphatase 128 U/L (39-117); Bilirubin,Direct < 0.2 mg/dL (0.0-0.3); Blood Urea Nitrogen 8 mg/dl (6-20); Gamma Glutamyl Transpeptidase 59 U/L (5-36); Magnesium 1.8 mg/dL (1.6-2.5); Uric Acid 4.1 mg/dL (2.5-8.0)
[2017-08-03] MEDS: HEPARIN 5,000 UNIT/ML VIAL SQ SCH ×2 (07:58→20:59)
[2017-08-03] MEDS: GABAPENTIN 400 MG CAPSULE PO SCH ×3 (07:58→20:58)
[2017-08-03] MEDS: LINEZOLID 600 MG TABLET PO SCH ×2 (07:58→20:59)
[2017-08-03] MEDS: INSULIN GLARGINE, HUMAN 1 UNIT/0.01 ML SQ SCH ×2 (08:22→20:59)
[2017-08-03] MEDS: INSULIN LISPRO 1 UNIT/0.01 ML UNIT SQ SCH ×7 (08:22→21:01)
[2017-08-03] MEDS: CYCLOBENZAPRINE 10 MG TABLET PO SCH ×3 (08:25→20:58)
--- NOTE | 2017-08-03 10:38 | Internal Med Progress Note ---
Medical - PN: Subj Patient information: Note initiated : 08/03/17 at 10:38 am Patient: Jeanette Gonzalez a 41 y/o F admitted on 08/01/17 for Right Foot Infection/ Cellulitis & Abscess of Foot. Interval history: August 01, 2017: History of present illness: Ms. Gonzalez is a 41 year old female who had a type II/type I 0.5 diabetes for the last 15 years. A while back she developed an ulcer near the pinky toe of her right foot. She was just discharged from this hospital on July 26 for treatment of associated cellulitis. She was on IV Rocephin as an outpatient, and completed that. However, her foot has become progressively more swollen and more tender over the last several days. She presented to wound care clinic today for follow-up, and was immediately sent to the emergency room. She notes she has been having fevers and chills for several days. She notes only minimal drainage from her foot wound. She does check blood sugars 4 times a day, and says her normal is between 102 100, but she has been running 300-500 lately. ER evaluation showed marked leukocytosis, severe hyperglycemia with other electrolyte abnormalities, elevated anion gap. requested that she be admitted for IV antibiotics, and probable wound debridement in the morning. Otherwise, the patient denies headaches or dizziness, new eye or ear symptoms, sore throat or shortness of breath. She has had a cough for about a week, which is minimally productive. She has had some intermittent nausea and vomiting over the last several days. She denies chest pain or palpitations, abdominal pain, diarrhea or constipation, dysuria. August 02: The patient underwent I&D of her right foot today. That apparently went quite well. She has been stable postoperatively. She reports she continues to have quite a bit of pain in spite of IV Dilaudid. She thinks she missed a dose of Flexeril today and may be a dose of gabapentin as well. Otherwise she denies fever chills chest pain or shortness of breath GI or symptoms. August 03: Today, the patient notes that her foot is really throbbing. She wonders if it is supposed to be the swollen. She also notes that she accidentally pulled off the toenail on her right second toe with her blankets . She is rather nervous about her expected course. She is also very concerned that she be able to get enough pain medication. Accu-Cheks were reasonably well controlled yesterday, but then spiked again this morning. She did receive extra insulin, and glucose looks much better at lunchtime. came in to see her this afternoon, and he is concerned it would be extremely careful with getting her wound healing going in the right direction. He feels that she has failed outpatient care and IV antibiotics in the past, and wants to be very aggressive with management of her foot wound, to avoid further complications. He is concerned about her ability to be compliant with care, to remain nonweightbearing, and to manage her diabetes well to help with wound healing. The patient denies fever or chills, chest pain or palpitations, shortness of breath. She does note that she is coughing quite a bit more today, and her cough is productive of yellowish phlegm. She denies abdominal pain, nausea or vomiting, diarrhea or constipation or dysuria. - Constitutional Vitals: Vital Signs Temp Pulse Resp BP Pulse Ox 96.7 F L 94 H 12 140/82 98 08/03/17 03:28 08/03/17 03:28 08/03/17 03:28 08/03/17 03:28 08/03/17 03:28 Period Temp Pulse Resp BP Sys/Santiago Pulse Ox Last 24 Hr 95.7 F-98.6 F 88-111 10-16 104-140/70-90 93-98 Intake and Output 08/02/17 08/03/17 08/03/17 21:59 05:59 13:59 Intake Total 1240 / 1240 1610 / 1610 Output Total 1200 / 1200 1700 / 1700 Balance 40 / 40 -90 / -90 Weight 150 lb 8 oz Intake & Output: Intake & Output 08/02/17 08/03/17 08/03/17 21:59 05:59 13:59 Intake Total 1240 / 1240 1610 / 1610 Output Total 1200 / 1200 1700 / 1700 Balance 40 / 40 -90 / -90 Weight 150 lb 8 oz Intake: IV 1000 / 1000 1000 / 1000 NaCl 0.9% W/KCl 20Meq 1000ML 1, 1000 / 1000 1000 / 1000 000 ml @ 125 mls/hr IV .Q8H [facility] Rx#:[id number] Oral 240 / 240 610 / 610 Output: Void Amount 1200 / 1200 1700 / 1700 Other: Meal Dinner Sang(2) Percent of Meal Consumed 50% 100% Feeding Ability Independent Independent # Bowel Movements 1 On exam, she is awake and alert. She is a little bit anxious. She is afebrile. Heart rate ranges from 83-111. Respiratory rate 12. Blood pressure 138/80. O2 saturation 97% on room air. Neck is supple without obvious lymphadenopathy or JVD. Cardiac exam shows regular rate and rhythm. Lungs: She has some scattered wheezes and rhonchi, but no definite crackles. She notes she is feeling a little congested. Abdomen: Is soft and nontender. Extremities: Left lower extremity has no edema. Right lower extremity: The right foot is heavily bandaged. The toes do appear a bit swollen. Her right second toenail is missing. The bandage does not show signs of saturation. Neurologic exam: Is grossly nonfocal. Medical - PN: Obj Da - Labs CBC & Chem 7: 08/03/17 05:18 08/03/17 05:18 Labs: Abnormal Lab Results 08/03/17 08/03/17 08/02/17 05:18 05:18 08:33 WBC 11.1 H 11.3 H RBC 3.56 L 3.98 L Hgb 11.1 L Hct 32.7 L Plt Count MPV 7.1 L 6.5 L Sodium Chloride Anion Gap Glucose 337 H Hemoglobin A1c GGT 59 H Alkaline Phosphatase 128 H Total Protein Globulin Triglycerides 257 H Urine Glucose (UA) Urine Occult Blood Urine RBC Urine Yeast (Budding) 08/02/17 08/01/17 08/01/17 04:30 19:05 16:30 WBC RBC Hgb Hct Plt Count MPV Sodium 128 L Chloride 88 L Anion Gap 17.0 H Glucose 196 H 664 H* Hemoglobin A1c 11.6 H GGT 72 H Alkaline Phosphatase 140 H 180 H Total Protein 8.9 H Globulin 3.8 H 4.2 H Triglycerides 340 H Urine Glucose (UA) >=500 A Urine Occult Blood >=1.0 A Urine RBC 178 H Urine Yeast (Budding) Few A 08/01/17 16:30 WBC 16.5 H RBC Hgb Hct Plt Count 497 H MPV 6.6 L Sodium Chloride Anion Gap Glucose Hemoglobin A1c GGT Alkaline Phosphatase Total Protein Globulin Triglycerides Urine Glucose (UA) Urine Occult Blood Urine RBC Urine Yeast (Budding) Meds: Medications Acetaminophen (Tylenol) 650 mg PO Q6HP PRN PRN Reason: PAIN/FEVER > 101 Hydrocodone Bitart/Acetaminophen ([place] 10/325mg) 2 tab PO Q4HP PRN PRN Reason: Pain Last Admin: 08/03/17 10:26 Dose: 2 tab Cyclobenzaprine HCl (Flexeril) 10 mg PO TID [facility] Last Admin: 08/03/17 08:25 Dose: 10 mg Dextrose (Dextrose 50%) 0 ml IV UD PRN PRN Reason: Hypoglycemia Diagnostic Test (Pha) (Accu-Chek) 1 each FS ACHS [facility] Last Admin: 08/03/17 08:02 Dose: 1 each Docusate Sodium (Colace) 100 mg PO BIDP PRN PRN Reason: Constipation Gabapentin (Neurontin) 800 mg PO TID [facility] Last Admin: 08/03/17 07:58 Dose: 800 mg Heparin Sodium (Porcine) (Heparin) 5,000 unit SQ Q12 [facility] Last Admin: 08/03/17 07:58 Dose: 5,000 unit Hydromorphone HCl (Dilaudid) 1 mg IV Q2HP PRN PRN Reason: Pain Stop: 08/03/17 18:00 Last Admin: 08/03/17 07:58 Dose: 1 mg Hydromorphone HCl (Dilaudid) 2 mg PO Q4-6HP PRN PRN Reason: Pain Potassium Chloride/Sodium Chloride (Nacl 0.9% W/Kcl 20meq 1000ml) 1,000 mls @ 125 mls/hr IV .Q8H [facility] Last Admin: 08/03/17 05:08 Dose: Not Given Insulin Glargine (Lantus) 50 unit SQ BID [facility] Last Admin: 08/03/17 08:22 Dose: 50 unit Insulin Human Lispro (Humalog) 10 unit SQ AC [facility] Last Admin: 08/03/17 08:22 Dose: 10 unit Insulin Human Lispro (Humalog) 0 unit SQ ACHS [facility] PRN Reason: Protocol Last Admin: 08/03/17 08:22 Dose: 12 unit Linezolid (Zyvox) 600 mg PO BID [facility] Last Admin: 08/03/17 07:58 Dose: 600 mg Magnesium Hydroxide (Milk Of Magnesia) 30 ml PO DAILYP PRN PRN Reason: Constipation Naloxone HCl (Narcan) 0.1 mg IV Q2MIN PRN PRN Reason: Opiate Reversal Ondansetron HCl (Zofran) 4 mg IV Q4HP PRN PRN Reason: Nausea And Vomiting Sodium Chloride (Saline Flush) 10 ml IV Q8 [facility] Last Admin: 08/03/17 05:12 Dose: Not Given Tramadol HCl (Ultram) 50 mg PO Q6HP PRN PRN Reason: Pain Last Admin: 08/02/17 20:27 Dose: 50 mg Trazodone HCl (Desyrel) 50 mg PO HS [facility] Last Admin: 08/02/17 20:28 Dose: 50 mg Medical - PN: A/P - Time Spent With Patient Total time spent is greater than 50% in coordination of care (as documented) at patient's floor/unit and/or counseling patient: Greater than 35 minutes (1) Hyperosmolar non-ketotic state in patient with type 2 diabetes mellitus Status: Acute Current Visit: No (2) Cellulitis and abscess of foot Problem details: S/P I/D of abxcess with surgical debridement about a week ago at [facility]. Plan: On going wound care and check non invasive vascular studies. TBI and Sensilase. Status: Acute Current Visit: Yes (3) Hyponatremia Status: Acute Current Visit: No (4) Diabetes mellitus with foot ulcer due to multiple causes Problem details: Continue current wound care for right foot plantar ulcer and fungal infection between toes. Status: Chronic Current Visit: No - Narrative A/P Narrative: #1. Infectious disease. -Patient presents with uncontrolled diabetic foot infection. She is status post inpatient treatment earlier this month. She now presents with worsening infection, leukocytosis, tachycardia, uncontrolled diabetes. Patient is status post I&D, which went well. She was changed to oral linezolid, as her pharmacy does not have the IV form. Regarding 's concerns about her past problems with wound healing, and uncontrolled diabetes, we will add cefepime (she is penicillin allergic), to give her broader spectrum coverage. Continue local wound care. 2. Endocrine. -Uncontrolled type I/II diabetes. Nonketotic hyperosmolar syndrome. Accu-Cheks are ranging from 123 - 391 today. Patient is now back on her usual twice daily Lantus, plus sliding scale. Continue diet education as well.. -Hypothyroidism. Elevated TSH earlier this month. Continue levothyroxine. Recheck. 3. GI. Enlarged liver and abnormal LFTs, while taking an anabolic steroid. -Hold steroids. This is a high risk medication. LFTs improving. 4. Hematologic. She presents with elevated protein and globulin levels, in addition to leukocytosis and thrombocytosis. -Continue to monitor. Improving. 5. CODE STATUS: Full code. 6. DVT prophylaxis: Subcu heparin. 7. Chronic pain. Continue home medications, Flexeril, tramadol, hydrocodone , gabapentin. -I have changed her IV Dilaudid to p.o., as we moved towards outpatient care. The patient is objecting to this, but we asked her to at least give oral meds try, as she cannot go home with IV meds. 8. Psychiatric. History of depression. -Continue Lexapro, gabapentin, trazodone #9. Pulmonary. Patient has quite a cough today. Chest x-ray was ordered, and is suggestive of a small vague groundglass infiltrate in the right upper lobe. Adding cefepime today should cover any brewing pneumonia. -Add albuterol nebs, as needed oxygen. Disposition: express concern today that the patient would fail outpatient management. He would like to keep her in the hospital for IV antibiotics and aggressive wound care and aggressive control of her blood glucoses. The patient was very upset at the possibility that she might not go home as soon as she thought. Dr. Walker would actually like to consider long-term wound care at a rehab center, but patient is quite against that. We did end up having a meeting today with case management, nursing staff, and myself, and other staff, with the patient, to review all of the treatment options. At this time, he is willing to stay in the hospital for another few days, to better assess how her wound is going to do. Approximately 40 minutes was spent today, reviewing the patient's test results, interviewing and examining her, and then reviewing her case and plan of care, several times, with staff.
--- NOTE | 2017-08-03 11:53 | XRay Report ---
CLINICAL INFORMATION: Cough COMPARISON: Chest x-rays from 03/09/2013 and 07/25/2017 FINDINGS: Heart size, mediastinal pulmonary vessels are normal. Small vague groundglass infiltrate in the right upper lobe is noted. It was not seen on remote 2012. No effusion IMPRESSION: Small vague groundglass right upper lobe infiltrate Interpreted and Authenticated by: Jeremy Tuttle 08/03/17
--- NOTE | 2017-08-03 13:05 | General Surgery Progress Note ---
Subjective Patient reports: still having pain, tolerating a regular diet, voiding w/o difficulty, bowel movement Narrative: Note initiated : 08/03/17 at 1:01 pm Service Date, if different from initiated Date: [] Patient: Jeanette Gonzalez 41 y/o F admitted on 08/01/17 for Right Foot Infection/ Cellulitis & Abscess of Foot. Chief Complaint: [] Objective Temp Pulse Resp BP Pulse Ox 97.0 F 85 12 138/80 97 08/03/17 11:42 08/03/17 11:42 08/03/17 11:42 08/03/17 11:42 08/03/17 11:42 Afebrile, VSS L/E Open Post operative wound minimal drainage, blood tinged, No odor. LOCAL inflammatory changes improving. Lab results reviewed. Dressings changed and packing removed. Wound care explained to Denise PARKER. - Additional Data Intake & Output - Last 24 hours: Intake & Output 08/01/17 08/02/17 08/03/17 08/04/17 05:59 05:59 05:59 05:59 Intake Total 2280 / 2280 2850 / 2850 Output Total 75 / 75 2900 / 2900 Balance 2205 / 2205 -50 / -50 Weight 151 lb 150 lb 8 oz - Labs 08/03/17 05:18 08/03/17 05:18 Diabetes panel 08/03/17 Range/Units 05:18 Sodium 135 (133-145) mmol/L Potassium 4.5 (3.3-5.1) mmol/L Chloride 98 (96-108) mmol/L Carbon Dioxide 25 (22-30) mmol/L BUN 8 (6-20) mg/dl Creatinine 0.7 (0.6-1.1) mg/dl Glucose 337 H (70-105) mg/dL Calcium 8.8 (8.6-10.4) mg/dl AST 22 (0-37) U/l ALT 23 (0-40) U/l Alkaline Phosphatase 128 H (39-117) U/L Total Protein 6.6 (5.9-8.4) gm/dL Albumin 3.4 (3.2-5.2) gm/dL Triglycerides 257 H (<150) mg/dl Calcium panel 08/03/17 Range/Units 05:18 Calcium 8.8 (8.6-10.4) mg/dl Phosphorus 3.3 (2.7-4.5) mg/dL Albumin 3.4 (3.2-5.2) gm/dL Pituitary panel 08/03/17 Range/Units 05:18 Sodium 135 (133-145) mmol/L Potassium 4.5 (3.3-5.1) mmol/L Chloride 98 (96-108) mmol/L Carbon Dioxide 25 (22-30) mmol/L BUN 8 (6-20) mg/dl Creatinine 0.7 (0.6-1.1) mg/dl Glucose 337 H (70-105) mg/dL Calcium 8.8 (8.6-10.4) mg/dl Adrenal panel 08/03/17 Range/Units 05:18 Sodium 135 (133-145) mmol/L Potassium 4.5 (3.3-5.1) mmol/L Chloride 98 (96-108) mmol/L Carbon Dioxide 25 (22-30) mmol/L BUN 8 (6-20) mg/dl Creatinine 0.7 (0.6-1.1) mg/dl Glucose 337 H (70-105) mg/dL Calcium 8.8 (8.6-10.4) mg/dl Total Bilirubin < 0.2 (0.0-1.0) mg/dL AST 22 (0-37) U/l ALT 23 (0-40) U/l Alkaline Phosphatase 128 H (39-117) U/L Total Protein 6.6 (5.9-8.4) gm/dL Albumin 3.4 (3.2-5.2) gm/dL Assessment and Plan (1) Sepsis affecting skin Problem details: CSSSI right 5 th toe. ? Necrotizing skin infection Abscess with superimposed cellulitis. Needs OR debridement, possible toe amputation. Status: Acute Assessment and plan: Assessment : Postoperative day #1. Satisfactory progress. Still has significant pain and is NWB Right foot. NEEDS Local wound care round the clock with dressing changes and titrating insulin as per blood sugars. to continue on PO Zyvox at this time. Patient is NOT ready for discharge. Will CLOSELY monitor progress and compliance with instructions. Plan: Continue current management. May change IV to Heplock per Hospitalist instructions. Consult nutrition and Diabetes clinician nurse. Following patient. Current Visit: Yes - Time Spent With Patient Total time spent is greater than 50% in coordination of care (as documented) at patient's floor/unit and/or counseling patient: 25 - 35 minutes
[2017-08-03] MEDS ORDERED: ALBUTEROL SULFATE 2.5 MG/3 ML NEBULIZER NEB PRN (15:14)
[2017-08-03] MEDS: HYDROmorphone 2 MG TABLET PO PRN ×3 (15:59→23:59)
[2017-08-03] MEDS: CEFEPIME 1 GM in DEXTROSE 5% IN WATER 50 ML IV SCH (17:22)
[2017-08-03] MEDS: traMADol 50 MG TABLET PO PRN ×2 (17:23→23:10)
[2017-08-03] MEDS: traZODone HCL 50 MG TABLET PO SCH (20:58)
[2017-08-03] MEDS: GENTAMICIN SULFATE 40 MG, CLINDAMYCIN 300 MG, BACITRACIN 25,000 UNIT in SODIUM CHLORIDE... IRR SCH (21:01)
[2017-08-03] MEDS: ALBUTEROL SULFATE 2.5 MG/3 ML NEBULIZER NEB SCH (21:45)
[2017-08-04] MEDS: CEFEPIME 1 GM in DEXTROSE 5% IN WATER 50 ML IV SCH ×3 (01:07→21:09)
[2017-08-04] MEDS: HYDROcodone/APAP 10/325MG TABLET PO PRN ×6 (01:11→22:19)
[2017-08-04] MEDS: HYDROmorphone 2 MG TABLET PO PRN ×5 (04:25→20:04)
[2017-08-04] MEDS: 0.9 % SODIUM CHLORIDE 10 ML SYRINGE IV SCH ×3 (05:02→21:08)
[2017-08-04] MEDS: traMADol 50 MG TABLET PO PRN ×3 (05:15→18:01)
[2017-08-04 06:27] LABS: Basophils # (Auto) 0 K/mcL (0.0-0.3); Basophils % (Auto) 0.5 % (0.0-2.0); Eosinophils # (Auto) 0.4 K/mcL (0.0-0.7); Eosinophils % (Auto) 3.4 % (0.0-7.0); Lymphocytes # (Auto) 3.8 K/mcL (1.5-4.8); Mean Cell Volume 91.1 fL (80.0-100.0); Mean Corpuscular HGB Conc 34.2 g/dL (31.0-36.0); Mean Corpuscular Hemoglobin 31.1 pg (26.0-34.0); Monocytes # (Auto) 0.5 K/mcL (0.1-0.9); Monocytes % (Auto) 5.1 % (1.0-12.0); Platelet Count 331 K/mcL (140-440); RBC 3.56 M/mcL (4.00-5.20); Red Cell Distribution Width 13.3 % (11.5-14.5)
[2017-08-04 07:10] LABS: ALT/SGPT 20 U/l (0-40); Albumin 3.1 gm/dL (3.2-5.2); Albumin/Globulin Ratio 0.9 (1.0-2.3); Alkaline Phosphatase 127 U/L (39-117); Bilirubin,Direct < 0.2 mg/dL (0.0-0.3); Blood Urea Nitrogen 9 mg/dl (6-20); Gamma Glutamyl Transpeptidase 56 U/L (5-36); Magnesium 1.9 mg/dL (1.6-2.5); Uric Acid 4.1 mg/dL (2.5-8.0)
[2017-08-04] MEDS: HEPARIN 5,000 UNIT/ML VIAL SQ SCH ×2 (07:57→21:08)
[2017-08-04] MEDS: CYCLOBENZAPRINE 10 MG TABLET PO SCH ×3 (07:58→21:09)
[2017-08-04] MEDS: GABAPENTIN 400 MG CAPSULE PO SCH ×3 (07:58→21:08)
[2017-08-04] MEDS: LINEZOLID 600 MG TABLET PO SCH ×2 (07:59→21:10)
[2017-08-04] MEDS: GENTAMICIN SULFATE 40 MG, CLINDAMYCIN 300 MG, BACITRACIN 25,000 UNIT in SODIUM CHLORIDE... IRR SCH ×2 (07:59→21:19)
[2017-08-04] MEDS: INSULIN LISPRO 1 UNIT/0.01 ML UNIT SQ SCH ×7 (08:09→21:11)
[2017-08-04] MEDS: INSULIN GLARGINE, HUMAN 1 UNIT/0.01 ML SQ SCH ×2 (08:09→21:10)
[2017-08-04] MEDS: NACL 0.9% W/KCL 20MEQ 1,000 ML IV SCH ×2 (08:10→11:57)
[2017-08-04] MEDS: ALBUTEROL SULFATE 2.5 MG/3 ML NEBULIZER NEB SCH ×2 (09:30→20:46)
[2017-08-04] MEDS: HYDROmorphone 2 MG/ML SYRINGE IV SCH (10:08)
--- NOTE | 2017-08-04 11:24 | Internal Med Progress Note ---
Medical - PN: Subj Patient information: Note initiated : 08/04/17 at 11:24 am Service Date, if different from initiated Date: [] Patient: Jeanette Gonzalez a 41 y/o F admitted on 08/01/17 for Right Foot Infection/ Cellulitis & Abscess of Foot. Chief Complaint: [] Interval history: August 01, 2017: History of present illness: Ms. Gonzalez is a 41 year old female who had a type II/type I 0.5 diabetes for the last 15 years. A while back she developed an ulcer near the pinky toe of her right foot. She was just discharged from this hospital on July 26 for treatment of associated cellulitis. She was on IV Rocephin as an outpatient, and completed that. However, her foot has become progressively more swollen and more tender over the last several days. She presented to wound care clinic today for follow-up, and was immediately sent to the emergency room. She notes she has been having fevers and chills for several days. She notes only minimal drainage from her foot wound. She does check blood sugars 4 times a day, and says her normal is between 102 100, but she has been running 300-500 lately. ER evaluation showed marked leukocytosis, severe hyperglycemia with other electrolyte abnormalities, elevated anion gap. requested that she be admitted for IV antibiotics, and probable wound debridement in the morning. Otherwise, the patient denies headaches or dizziness, new eye or ear symptoms, sore throat or shortness of breath. She has had a cough for about a week, which is minimally productive. She has had some intermittent nausea and vomiting over the last several days. She denies chest pain or palpitations, abdominal pain, diarrhea or constipation, dysuria. August 02: The patient underwent I&D of her right foot today. That apparently went quite well. She has been stable postoperatively. She reports she continues to have quite a bit of pain in spite of IV Dilaudid. She thinks she missed a dose of Flexeril today and may be a dose of gabapentin as well. Otherwise she denies fever chills chest pain or shortness of breath GI or symptoms. August 03: Today, the patient notes that her foot is really throbbing. She wonders if it is supposed to be the swollen. She also notes that she accidentally pulled off the toenail on her right second toe with her blankets . She is rather nervous about her expected course. She is also very concerned that she be able to get enough pain medication. Accu-Cheks were reasonably well controlled yesterday, but then spiked again this morning. She did receive extra insulin, and glucose looks much better at lunchtime. came in to see her this afternoon, and he is concerned it would be extremely careful with getting her wound healing going in the right direction. He feels that she has failed outpatient care and IV antibiotics in the past, and wants to be very aggressive with management of her foot wound, to avoid further complications. He is concerned about her ability to be compliant with care, to remain nonweightbearing, and to manage her diabetes well to help with wound healing. The patient denies fever or chills, chest pain or palpitations, shortness of breath. She does note that she is coughing quite a bit more today, and her cough is productive of yellowish phlegm. She denies abdominal pain, nausea or vomiting, diarrhea or constipation or dysuria. August 04: -The patient continues to complain of severe right foot pain. She is quite upset that we took away her IV Dilaudid and changed her to p.o. He continues to use her other p.o. pain medications as well. We discussed that she will not be able to go home with IV Dilaudid, so we need to manage her with oral meds. We ultimately agreed that she can have IV Dilaudid prior to her twice daily dressing changes, but otherwise will use oral meds. -Her cough is improved. She does not feel that she is having fever or chills or shortness of breath. She was started on antibiotics yesterday for pneumonia. -She otherwise denies fever chills, chest pain or shortness of breath, abdominal pain, nausea or vomiting, diarrhea or constipation, dysuria. - Constitutional Vitals: Vital Signs Temp Pulse Resp BP Pulse Ox 97.7 F 94 H 18 142/78 96 08/04/17 08:00 08/04/17 09:40 08/04/17 09:40 08/04/17 08:00 08/04/17 09:40 Period Temp Pulse Resp BP Sys/Santiago Pulse Ox Last 24 Hr 97.0 F-99.8 F 85-114 12- 113-142/72-84 96-97 Intake and Output 08/03/17 08/04/17 08/04/17 21:59 05:59 13:59 Intake Total 530 / 530 650 / 650 931 / 931 Output Total 1850 / 1850 1000 / 1000 1250 / 1250 Balance -1320 / -1320 -350 / -350 -319 / -319 Weight 158 lb Intake & Output: Intake & Output 08/03/17 08/04/17 08/04/17 21:59 05:59 13:59 Intake Total 530 / 530 650 / 650 931 / 931 Output Total 1850 / 1850 1000 / 1000 1250 / 1250 Balance -1320 / -1320 -350 / -350 -319 / -319 Weight 158 lb Intake: IV 50 / 50 50 / 50 811 / 811 Maxipime 1 gm In Dextrose 5% in 50 / 50 50 / 50 Water 50 ml @ 100 mls/hr IV Q12H [facility] Rx#:[id number] NaCl 0.9% W/KCl 20Meq 1000ML 1, 811 / 811 000 ml @ 50 mls/hr IV .Q20H [facility]STINA Rx#:[id number] Oral 480 / 480 600 / 600 120 / 120 Output: Void Amount 1850 / 1850 1000 / 1000 1250 / 1250 Other: Meal Dinner sherberts(2),ceral Tuna sandwich, jello Percent of Meal Consumed 100% 100% 100% Feeding Ability Independent Independent Independent # Voids 3 275 1 On exam, she is awake and alert. She is crying when I entered the room. She is afebrile. Vital signs are stable. Neck is supple without obvious lymphadenopathy or JVD. Cardiac exam shows regular rate and rhythm. Lungs: She has some scattered wheezes and rhonchi, but no definite crackles.. Abdomen: Is soft and nontender. Extremities: Left lower extremity has no edema. Right lower extremity: The right foot is heavily bandaged. The toes do appear a bit swollen. Her right second toenail is missing. The bandage does not show signs of saturation. Neurologic exam: Is grossly nonfocal. Medical - PN: Obj Da - Labs CBC & Chem 7: 08/04/17 04:45 08/04/17 04:45 Labs: Abnormal Lab Results 08/04/17 08/04/17 08/03/17 04:45 04:45 05:18 WBC 11.1 H RBC 3.56 L 3.56 L Hgb 11.1 L 11.1 L Hct 32.5 L 32.7 L Plt Count MPV 7.1 L Sodium Chloride Anion Gap Glucose 302 H Hemoglobin A1c GGT 56 H Alkaline Phosphatase 127 H Total Protein Albumin 3.1 L Globulin Albumin/Globulin Ratio 0.9 L Triglycerides 237 H Urine Glucose (UA) Urine Occult Blood Urine RBC Urine Yeast (Budding) 08/03/17 08/02/17 08/02/17 05:18 08:33 04:30 WBC 11.3 H RBC 3.98 L Hgb Hct Plt Count MPV 6.5 L Sodium Chloride Anion Gap Glucose 337 H 196 H Hemoglobin A1c GGT 59 H 72 H Alkaline Phosphatase 128 H 140 H Total Protein Albumin Globulin 3.8 H Albumin/Globulin Ratio Triglycerides 257 H 340 H Urine Glucose (UA) Urine Occult Blood Urine RBC Urine Yeast (Budding) 08/01/17 08/01/17 08/01/17 19:05 16:30 16:30 WBC 16.5 H RBC Hgb Hct Plt Count 497 H MPV 6.6 L Sodium 128 L Chloride 88 L Anion Gap 17.0 H Glucose 664 H* Hemoglobin A1c 11.6 H GGT Alkaline Phosphatase 180 H Total Protein 8.9 H Albumin Globulin 4.2 H Albumin/Globulin Ratio Triglycerides Urine Glucose (UA) >=500 A Urine Occult Blood >=1.0 A Urine RBC 178 H Urine Yeast (Budding) Few A August 03: Chest x-ray suggests mild vague groundglass right upper lobe infiltrate. August 01: CBC: White blood cell count 16,500, hemoglobin 13, platelets 497,000. Chemistry panel: Sodium 128, potassium 4.3, chloride 88, CO2 23, anion gap 17, BUN 13, creatinine 1.0, glucose 664 Alk phos 180, total protein 8.9, globulin 4.2 ABG: On room air: PH 7.41, PCO2 of 43, PO2 66, bicarb 27, O2 saturation 93% Hemoglobin A1c: Elevated at 11.6% Total protein is elevated at 8.9, globulin elevated at 4.2 next Urinalysis: Shows greater than 500 mg of glucose, 178 red blood cells, a few budding yeast. Right foot x-ray: Diffuse soft tissue swelling compatible with cellulitis. No obvious osteomyelitis. July 22: Urine culture grew E. coli, pansensitive Meds: Medications Acetaminophen (Tylenol) 650 mg PO Q6HP PRN PRN Reason: PAIN/FEVER > 101 Hydrocodone Bitart/Acetaminophen ([place] 10/325mg) 2 tab PO Q4HP PRN PRN Reason: Pain Last Admin: 08/04/17 10:02 Dose: 2 tab Albuterol Sulfate (Ventolin) 2.5 mg NEB BID [facility] Last Admin: 08/04/17 09:30 Dose: 2.5 mg Albuterol Sulfate (Ventolin) 2.5 mg NEB Q2HP PRN PRN Reason: Shortness Of Breath Cyclobenzaprine HCl (Flexeril) 10 mg PO TID [facility] Last Admin: 08/04/17 07:58 Dose: 10 mg Dextrose (Dextrose 50%) 0 ml IV UD PRN PRN Reason: Hypoglycemia Diagnostic Test (Pha) (Accu-Chek) 1 each FS ACHS [facility] Last Admin: 08/04/17 07:59 Dose: 1 each Docusate Sodium (Colace) 100 mg PO BIDP PRN PRN Reason: Constipation Last Admin: 08/04/17 07:58 Dose: 100 mg Gabapentin (Neurontin) 800 mg PO TID [facility] Last Admin: 08/04/17 07:58 Dose: 800 mg Heparin Sodium (Porcine) (Heparin) 5,000 unit SQ Q12 [facility] Last Admin: 08/04/17 07:57 Dose: 5,000 unit Hydromorphone HCl (Dilaudid) 2 mg PO Q4-6HP PRN PRN Reason: Pain Last Admin: 08/04/17 07:58 Dose: 2 mg Hydromorphone HCl (Dilaudid) 1 mg IV ONCE [facility] Last Admin: 08/04/17 10:08 Dose: 1 mg Hydromorphone HCl (Dilaudid) 1 mg IV BIDP PRN PRN Reason: Pain Gentamicin Sulfate 40 mg/Clindamycin Phosphate 300 mg/Bacitracin 25,000 unit/ Sodium Chloride 503 mls @ 0 mls/hr IRR BID [facility] PRN Reason: As Directed Last Admin: 08/04/17 07:59 Dose: 100 mls/hr Cefepime HCl 1 gm/ Dextrose 50 mls @ 100 mls/hr IV Q12H [facility] Last Admin: 08/04/17 10:08 Dose: 100 mls/hr Potassium Chloride/Sodium Chloride (Nacl 0.9% W/Kcl 20meq 1000ml) 1,000 mls @ 50 mls/hr IV .Q20H [facility] Last Admin: 08/04/17 08:10 Dose: 50 mls/hr Insulin Glargine (Lantus) 50 unit SQ BID [facility] Last Admin: 08/04/17 08:09 Dose: 50 unit Insulin Human Lispro (Humalog) 10 unit SQ AC [facility] Last Admin: 08/04/17 08:09 Dose: 10 unit Insulin Human Lispro (Humalog) 0 unit SQ ACHS [facility] PRN Reason: Protocol Last Admin: 08/04/17 08:09 Dose: 10 unit Linezolid (Zyvox) 600 mg PO BID [facility] Last Admin: 08/04/17 07:59 Dose: 600 mg Magnesium Hydroxide (Milk Of Magnesia) 30 ml PO DAILYP PRN PRN Reason: Constipation Naloxone HCl (Narcan) 0.1 mg IV Q2MIN PRN PRN Reason: Opiate Reversal Ondansetron HCl (Zofran) 4 mg IV Q4HP PRN PRN Reason: Nausea And Vomiting Last Admin: 08/03/17 16:00 Dose: 4 mg Sodium Chloride (Saline Flush) 10 ml IV Q8 [facility] Last Admin: 08/04/17 05:02 Dose: Not Given Tramadol HCl (Ultram) 50 mg PO Q6HP PRN PRN Reason: Pain Last Admin: 08/04/17 05:15 Dose: 50 mg Trazodone HCl (Desyrel) 50 mg PO HS [facility] Last Admin: 08/03/17 20:58 Dose: 50 mg Medical - PN: A/P - Time Spent With Patient Total time spent is greater than 50% in coordination of care (as documented) at patient's floor/unit and/or counseling patient: 25 - 35 minutes (1) Hyperosmolar non-ketotic state in patient with type 2 diabetes mellitus Status: Acute Current Visit: No (2) Cellulitis and abscess of foot Problem details: S/P I/D of abxcess with surgical debridement about a week ago at [facility]. Plan: On going wound care and check non invasive vascular studies. TBI and Sensilase. Status: Acute Current Visit: Yes (3) Hyponatremia Status: Acute Current Visit: No (4) Diabetes mellitus with foot ulcer due to multiple causes Problem details: Continue current wound care for right foot plantar ulcer and fungal infection between toes. Status: Chronic Current Visit: No - Narrative A/P Narrative: #1. Infectious disease. -Patient presents with uncontrolled diabetic foot infection. She is status post inpatient treatment earlier this month. She now presents with worsening infection, leukocytosis, tachycardia, uncontrolled diabetes. Patient is status post I&D, which went well. She was changed to oral linezolid, as her pharmacy does not have the IV form. Regarding 's concerns about her past problems with wound healing, and uncontrolled diabetes, we added cefepime (she is penicillin allergic), to give her broader spectrum coverage. Continue local wound care. 2. Endocrine. -Uncontrolled type I/II diabetes. Nonketotic hyperosmolar syndrome. Accu-Cheks are ranging from 217-337 today. Patient is now back on her usual twice daily Lantus, plus sliding scale. Continue diet education as well.. Dietitian is meeting with her as well. -Hypothyroidism. Elevated TSH earlier this month. Continue levothyroxine. Recheck. 3. GI. Enlarged liver and abnormal LFTs, while taking an anabolic steroid. -Hold steroids. This is a high risk medication. LFTs improving. 4. Hematologic. She presents with elevated protein and globulin levels, in addition to leukocytosis and thrombocytosis. -Continue to monitor. Improving. 5. CODE STATUS: Full code. 6. DVT prophylaxis: Subcu heparin. 7. Chronic pain. Continue home medications, Flexeril, tramadol, hydrocodone , gabapentin. -I have changed her IV Dilaudid to p.o., as we moved towards outpatient care. The patient is objecting to this, but we ultimately agreed that she can have IV Dilaudid before dressing changes, but otherwise needs to transition to oral meds. 8. Psychiatric. History of depression. -Continue Lexapro, gabapentin, trazodone #9. Pulmonary. Patient has quite a cough today. Chest x-ray was ordered, and is suggestive of a small vague groundglass infiltrate in the right upper lobe. Cefepime was added to cover any brewing pneumonia. -Add albuterol nebs, as needed oxygen. approximately 30 minutes was spent today, reviewing the patient's test results , interviewing and examining her, and then reviewing her case and plan of care with her, and specifically discussing pain management, and writing orders.,
--- NOTE | 2017-08-04 17:50 | General Surgery Progress Note ---
Subjective Patient reports: feels better, still having pain, bowel movement, afebrile, other (C/O pain left foot before, during and after dressings and most of the times during day. ) Narrative: Note initiated : 08/04/17 at 5:47 pm Service Date, if different from initiated Date: [] Patient: Jeanette Gonzalez 41 y/o F admitted on 08/01/17 for Right Foot Infection/ Cellulitis & Abscess of Foot. Chief Complaint: [] Objective Temp Pulse Resp BP Pulse Ox 97.4 F 94 H 16 118/68 96 08/04/17 12:00 08/04/17 09:40 08/04/17 12:00 08/04/17 12:00 08/04/17 15:00 AVSS, No changes in MARYSOL. Cough is resolved. CXR shows RUL infiltrate. Right foot wound examined. Clean and healing well. Still has periwound pitting edema . All cultures are negative so far. - Additional Data Intake & Output - Last 24 hours: Intake & Output 08/02/17 08/03/17 08/04/17 08/05/17 05:59 05:59 05:59 05:59 Intake Total 2280 / 2280 2850 / 2850 1540 / 1540 1291 / 1291 Output Total 75 / 75 2900 / 2900 2850 / 2850 2150 / 2150 Balance 2205 / 2205 -50 / -50 -1310 / -1310 -859 / -859 Weight 151 lb 150 lb 8 oz 158 lb - Labs 08/04/17 04:45 08/04/17 04:45 Diabetes panel 08/04/17 Range/Units 04:45 Sodium 134 (133-145) mmol/L Potassium 4.5 (3.3-5.1) mmol/L Chloride 96 (96-108) mmol/L Carbon Dioxide 25 (22-30) mmol/L BUN 9 (6-20) mg/dl Creatinine 0.9 (0.6-1.1) mg/dl Glucose 302 H (70-105) mg/dL Calcium 8.8 (8.6-10.4) mg/dl AST 21 (0-37) U/l ALT 20 (0-40) U/l Alkaline Phosphatase 127 H (39-117) U/L Total Protein 6.4 (5.9-8.4) gm/dL Albumin 3.1 L (3.2-5.2) gm/dL Triglycerides 237 H (<150) mg/dl Calcium panel 08/04/17 Range/Units 04:45 Calcium 8.8 (8.6-10.4) mg/dl Phosphorus 4.5 (2.7-4.5) mg/dL Albumin 3.1 L (3.2-5.2) gm/dL Pituitary panel 08/04/17 Range/Units 04:45 Sodium 134 (133-145) mmol/L Potassium 4.5 (3.3-5.1) mmol/L Chloride 96 (96-108) mmol/L Carbon Dioxide 25 (22-30) mmol/L BUN 9 (6-20) mg/dl Creatinine 0.9 (0.6-1.1) mg/dl Glucose 302 H (70-105) mg/dL Calcium 8.8 (8.6-10.4) mg/dl Adrenal panel 08/04/17 Range/Units 04:45 Sodium 134 (133-145) mmol/L Potassium 4.5 (3.3-5.1) mmol/L Chloride 96 (96-108) mmol/L Carbon Dioxide 25 (22-30) mmol/L BUN 9 (6-20) mg/dl Creatinine 0.9 (0.6-1.1) mg/dl Glucose 302 H (70-105) mg/dL Calcium 8.8 (8.6-10.4) mg/dl Total Bilirubin 0.2 (0.0-1.0) mg/dL AST 21 (0-37) U/l ALT 20 (0-40) U/l Alkaline Phosphatase 127 H (39-117) U/L Total Protein 6.4 (5.9-8.4) gm/dL Albumin 3.1 L (3.2-5.2) gm/dL Assessment and Plan (1) Sepsis affecting skin Problem details: CSSSI right 5 th toe. ? Necrotizing skin infection Abscess with superimposed cellulitis. Needs OR debridement, possible toe amputation. Status: Acute Assessment and plan: Assessment : Postoperative day #1. Satisfactory progress. Still has significant pain and is NWB Right foot. NEEDS Local wound care round the clock with dressing changes and titrating insulin as per blood sugars. to continue on PO Zyvox at this time. Patient is NOT ready for discharge. Will CLOSELY monitor progress and compliance with instructions. Plan: Continue current management. May change IV to Heplock per Hospitalist instructions. Consult nutrition and Diabetes clinician nurse. Following patient. Current Visit: Yes - Time Spent With Patient Total time spent is greater than 50% in coordination of care (as documented) at patient's floor/unit and/or counseling patient: Assessment: Satisfactory progress with wound healing. Plan: TO continue with current wound care. Will continue to follow patient over week end. 15 - 24 minutes
[2017-08-04] MEDS: traZODone HCL 50 MG TABLET PO SCH (21:09)
[2017-08-04] MEDS: HYDROmorphone 2 MG/ML SYRINGE IV PRN (22:52)
[2017-08-05] MEDS: HYDROmorphone 2 MG TABLET PO PRN ×6 (00:01→23:17)
[2017-08-05] MEDS: traMADol 50 MG TABLET PO PRN ×4 (00:01→17:59)
[2017-08-05] MEDS: HYDROcodone/APAP 10/325MG TABLET PO PRN ×5 (02:04→17:59)
[2017-08-05] MEDS: 0.9 % SODIUM CHLORIDE 10 ML SYRINGE IV SCH ×3 (05:59→21:15)
[2017-08-05] MEDS: NACL 0.9% W/KCL 20MEQ 1,000 ML IV SCH (05:59)
[2017-08-05 06:02] LABS: Basophils # (Auto) 0.1 K/mcL (0.0-0.3); Basophils % (Auto) 0.4 % (0.0-2.0); Eosinophils # (Auto) 0.4 K/mcL (0.0-0.7); Eosinophils % (Auto) 3.3 % (0.0-7.0); Granulocytes % (Auto) 58.8 % (38.0-78.0); Lymphocytes # (Auto) 3.8 K/mcL (1.5-4.8); Mean Corpuscular HGB Conc 34.2 g/dL (31.0-36.0); Mean Corpuscular Hemoglobin 31.4 pg (26.0-34.0); Monocytes # (Auto) 0.6 K/mcL (0.1-0.9); Monocytes % (Auto) 5.5 % (1.0-12.0); Platelet Count 337 K/mcL (140-440); RBC 3.37 M/mcL (4.00-5.20); Red Cell Distribution Width 13.1 % (11.5-14.5)
[2017-08-05 06:20] LABS: Prealbumin 23.4 mg/dl (20-40)
[2017-08-05 06:24] LABS: ALT/SGPT 17 U/l (0-40); Albumin 3.3 gm/dL (3.2-5.2); Alkaline Phosphatase 121 U/L (39-117); Bilirubin,Direct < 0.2 mg/dL (0.0-0.3); Blood Urea Nitrogen 12 mg/dl (6-20); Gamma Glutamyl Transpeptidase 51 U/L (5-36); Magnesium 1.9 mg/dL (1.6-2.5); Uric Acid 5.1 mg/dL (2.5-8.0)
[2017-08-05 06:26] LABS: Estimated Average Glucose(eAG) 286 mg/dL; Hemoglobin A1C 11.6 % HGB (4.0-6.0)
[2017-08-05] MEDS: INSULIN LISPRO 1 UNIT/0.01 ML UNIT SQ SCH ×7 (07:12→21:11)
--- NOTE | 2017-08-05 09:00 | General Surgery Progress Note ---
Subjective Patient reports: no new complaints, other (Uneventful night. OFF loading right foot and ambulates with walker to BR.) Narrative: Note initiated : 08/05/17 at 8:57 am Service Date, if different from initiated Date: [] Patient: Jeanette Gonzalez 41 y/o F admitted on 08/01/17 for Right Foot Infection/ Cellulitis & Abscess of Foot. Chief Complaint: [] Objective Temp Pulse Resp BP Pulse Ox 97.8 F 100 H 22 119/74 98 08/05/17 07:47 08/04/17 23:54 08/05/17 07:47 08/05/17 07:47 08/05/17 07:47 AVSS. No changes MARYSOL. Right foot dressings changed. Right 5 th toe is viable. Open wound dorsal surface of righ toot is clean dry and stable. Patient showed her LEFT foot , there is a plantar callosity under 5 th toe. Labs reviewed. Still has ELEVATED Hb A1c around 11. CRP is 1.0,, Prealbumin is 23, TSH is elevated at 5.78 - Additional Data Intake & Output - Last 24 hours: Intake & Output 08/03/17 08/04/17 08/05/17 08/06/17 05:59 05:59 05:59 05:59 Intake Total 2850 / 2850 1540 / 1540 3991 / 3991 Output Total 2900 / 2900 2850 / 2850 3975 / 3975 Balance -50 / -50 -1310 / -1310 Weight 150 lb 8 oz 158 lb 163 lb 4.8 oz - Labs 08/05/17 04:36 08/05/17 04:36 Diabetes panel 08/05/17 08/05/17 Range/Units 04:36 04:36 Sodium 133 (133-145) mmol/L Potassium 4.9 (3.3-5.1) mmol/L Chloride 96 (96-108) mmol/L Carbon Dioxide 27 (22-30) mmol/L BUN 12 (6-20) mg/dl Creatinine 0.8 (0.6-1.1) mg/dl Glucose 304 H (70-105) mg/dL Hemoglobin A1c 11.6 H (4.0-6.0) % HGB Calcium 8.9 (8.6-10.4) mg/dl AST 17 (0-37) U/l ALT 17 (0-40) U/l Alkaline Phosphatase 121 H (39-117) U/L Total Protein 6.5 (5.9-8.4) gm/dL Albumin 3.3 (3.2-5.2) gm/dL Triglycerides 274 H (<150) mg/dl Thyroid panel 08/05/17 Range/Units 04:36 TSH 5.78 H (0.27-5.01) uIU/ml Calcium panel 08/05/17 Range/Units 04:36 Calcium 8.9 (8.6-10.4) mg/dl Phosphorus 4.2 (2.7-4.5) mg/dL Albumin 3.3 (3.2-5.2) gm/dL Pituitary panel 08/05/17 08/05/17 Range/Units 04:36 04:36 Sodium 133 (133-145) mmol/L Potassium 4.9 (3.3-5.1) mmol/L Chloride 96 (96-108) mmol/L Carbon Dioxide 27 (22-30) mmol/L BUN 12 (6-20) mg/dl Creatinine 0.8 (0.6-1.1) mg/dl Glucose 304 H (70-105) mg/dL Calcium 8.9 (8.6-10.4) mg/dl TSH 5.78 H (0.27-5.01) uIU/ml Adrenal panel 08/05/17 Range/Units 04:36 Sodium 133 (133-145) mmol/L Potassium 4.9 (3.3-5.1) mmol/L Chloride 96 (96-108) mmol/L Carbon Dioxide 27 (22-30) mmol/L BUN 12 (6-20) mg/dl Creatinine 0.8 (0.6-1.1) mg/dl Glucose 304 H (70-105) mg/dL Calcium 8.9 (8.6-10.4) mg/dl Total Bilirubin 0.2 (0.0-1.0) mg/dL AST 17 (0-37) U/l ALT 17 (0-40) U/l Alkaline Phosphatase 121 H (39-117) U/L Total Protein 6.5 (5.9-8.4) gm/dL Albumin 3.3 (3.2-5.2) gm/dL Assessment and Plan (1) Sepsis affecting skin Problem details: CSSSI right 5 th toe. ? Necrotizing skin infection Abscess with superimposed cellulitis. Needs OR debridement, possible toe amputation. Status: Acute Assessment and plan: Assessment : Postoperative day #1. Satisfactory progress. Still has significant pain and is NWB Right foot. NEEDS Local wound care round the clock with dressing changes and titrating insulin as per blood sugars. to continue on PO Zyvox at this time. Patient is NOT ready for discharge. Will CLOSELY monitor progress and compliance with instructions. Plan: Continue current management. May change IV to Heplock per Hospitalist instructions. Consult nutrition and Diabetes clinician nurse. Following patient. Current Visit: Yes - Narrative A/P Narrative: Assessment: IDDM, Post operative wound dorsal surface right 5 th toe stable. HYPOTHYROIDISM. Plan: Continue current wound care and antibiotics. Spoke with Dr. Soares, Hospitalist about Elevated TSH and ordering replacement medication. - Time Spent With Patient Total time spent is greater than 50% in coordination of care (as documented) at patient's floor/unit and/or counseling patient: 15 - 24 minutes
[2017-08-05] MEDS: HEPARIN 5,000 UNIT/ML VIAL SQ SCH ×2 (09:03→21:12)
[2017-08-05] MEDS: INSULIN GLARGINE, HUMAN 1 UNIT/0.01 ML SQ SCH ×2 (09:04→21:11)
[2017-08-05] MEDS: HYDROmorphone 2 MG/ML SYRINGE IV SCH (09:05)
[2017-08-05] MEDS: GABAPENTIN 400 MG CAPSULE PO SCH ×3 (09:06→21:12)
[2017-08-05] MEDS: CYCLOBENZAPRINE 10 MG TABLET PO SCH ×3 (09:07→21:13)
[2017-08-05] MEDS: CEFEPIME 1 GM in DEXTROSE 5% IN WATER 50 ML IV SCH ×2 (09:07→21:14)
[2017-08-05] MEDS: LINEZOLID 600 MG TABLET PO SCH ×2 (09:07→21:14)
[2017-08-05] MEDS: GENTAMICIN SULFATE 40 MG, CLINDAMYCIN 300 MG, BACITRACIN 25,000 UNIT in SODIUM CHLORIDE... IRR SCH ×2 (09:08→21:14)
[2017-08-05] MEDS: ALBUTEROL SULFATE 2.5 MG/3 ML NEBULIZER NEB SCH (09:57)
[2017-08-05] MEDS ORDERED: HYDROmorphone 2 MG/ML SYRINGE IV ONE (17:55)
--- NOTE | 2017-08-05 18:59 | Internal Med Progress Note ---
Medical - PN: Subj Patient information: Note initiated : 08/05/17 at 6:56 pm Service Date, if different from initiated Date: [] Patient: Jeanette Gonzalez a 41 y/o F admitted on 08/01/17 for Right Foot Infection/ Cellulitis & Abscess of Foot. Chief Complaint: follow-up diabetic foot infection Interval history: August 01, 2017: History of present illness: Ms. Gonzalez is a 41 year old female who had a type II/type I 0.5 diabetes for the last 15 years. A while back she developed an ulcer near the pinky toe of her right foot. She was just discharged from this hospital on July 26 for treatment of associated cellulitis. She was on IV Rocephin as an outpatient, and completed that. However, her foot has become progressively more swollen and more tender over the last several days. She presented to wound care clinic today for follow-up, and was immediately sent to the emergency room. She notes she has been having fevers and chills for several days. She notes only minimal drainage from her foot wound. She does check blood sugars 4 times a day, and says her normal is between 102 100, but she has been running 300-500 lately. ER evaluation showed marked leukocytosis, severe hyperglycemia with other electrolyte abnormalities, elevated anion gap. requested that she be admitted for IV antibiotics, and probable wound debridement in the morning. Otherwise, the patient denies headaches or dizziness, new eye or ear symptoms, sore throat or shortness of breath. She has had a cough for about a week, which is minimally productive. She has had some intermittent nausea and vomiting over the last several days. She denies chest pain or palpitations, abdominal pain, diarrhea or constipation, dysuria. August 02: The patient underwent I&D of her right foot today. That apparently went quite well. She has been stable postoperatively. She reports she continues to have quite a bit of pain in spite of IV Dilaudid. She thinks she missed a dose of Flexeril today and may be a dose of gabapentin as well. Otherwise she denies fever chills chest pain or shortness of breath GI or symptoms. August 03: Today, the patient notes that her foot is really throbbing. She wonders if it is supposed to be the swollen. She also notes that she accidentally pulled off the toenail on her right second toe with her blankets . She is rather nervous about her expected course. She is also very concerned that she be able to get enough pain medication. Accu-Cheks were reasonably well controlled yesterday, but then spiked again this morning. She did receive extra insulin, and glucose looks much better at lunchtime. came in to see her this afternoon, and he is concerned it would be extremely careful with getting her wound healing going in the right direction. He feels that she has failed outpatient care and IV antibiotics in the past, and wants to be very aggressive with management of her foot wound, to avoid further complications. He is concerned about her ability to be compliant with care, to remain nonweightbearing, and to manage her diabetes well to help with wound healing. The patient denies fever or chills, chest pain or palpitations, shortness of breath. She does note that she is coughing quite a bit more today, and her cough is productive of yellowish phlegm. She denies abdominal pain, nausea or vomiting, diarrhea or constipation or dysuria. August 04: -The patient continues to complain of severe right foot pain. She is quite upset that we took away her IV Dilaudid and changed her to p.o. He continues to use her other p.o. pain medications as well. We discussed that she will not be able to go home with IV Dilaudid, so we need to manage her with oral meds. We ultimately agreed that she can have IV Dilaudid prior to her twice daily dressing changes, but otherwise will use oral meds. -Her cough is improved. She does not feel that she is having fever or chills or shortness of breath. She was started on antibiotics yesterday for pneumonia. -She otherwise denies fever chills, chest pain or shortness of breath, abdominal pain, nausea or vomiting, diarrhea or constipation, dysuria. August 05: Continues with right foot pain, feels 1 "catch-up" dose of IV hydromorphone would provide relief along with her usual when necessary's, which she is keeping to a regular schedule and taking. Otherwise doing well, no GI symptoms , no diarrhea from the antibiotics. Still has some cough with minimal sputum production. No dyspnea. - Constitutional Vitals: Vital Signs Temp Pulse Resp BP Pulse Ox 97.3 F 100 H 20 114/77 97 10/14/17 15:32 08/04/17 23:54 08/05/17 15:32 08/05/17 15:32 08/05/17 15:32 Period Temp Pulse Resp BP Sys/Santiago Pulse Ox Last 24 Hr 97.0 F-98.4 F 93-100 14-22 105-124/68-82 95-99 Intake and Output 08/05/17 08/05/17 08/05/17 05:59 13:59 21:59 Intake Total 2650 / 2650 50 / 50 840 / 840 Output Total 1825 / 1825 Balance 825 / 825 50 / 50 840 / 840 Weight 163 lb 4.8 oz Intake & Output: Intake & Output 08/05/17 08/05/17 08/05/17 05:59 13:59 21:59 Intake Total 2650 / 2650 50 / 50 840 / 840 Output Total 1825 / 1825 Balance 825 / 825 50 / 50 840 / 840 Weight 163 lb 4.8 oz Intake: IV 1000 / 1000 50 / 50 Maxipime 1 gm In Dextrose 5% in 50 / 50 Water 50 ml @ 100 mls/hr IV Q12H [facility] Rx#:[id number] NaCl 0.9% W/KCl 20Meq 1000ML 1, 1000 / 1000 000 ml @ 50 mls/hr IV .Q20H [facility] Rx#:[id number] Oral 1650 / 1650 840 / 840 Output: Void Amount 1825 / 1825 Other: Meal Sorbet ice cream Percent of Meal Consumed 100% Feeding Ability Independent # Voids 1 # Bowel Movements 1 - Additional findings Additional findings: General: In bed in no acute distress Chest: Few scattered rhonchi, improve after cough, unlabored respirations Cardiovascular: Regular, no peripheral edema Abdomen: Soft, nontender, active bowel sounds Extremities: Right foot is wrapped, the dressing on the little toe. Prior ulcer great toe healed. Neuro: Alert, oriented 3, moves all extremities Medical - PN: Obj Da - Labs CBC & Chem 7: 08/05/17 04:36 08/05/17 04:36 Labs: Abnormal Lab Results 08/05/17 08/05/17 08/05/17 04:36 04:36 04:36 WBC 11.7 H RBC 3.37 L Hgb 10.6 L Hct 31.0 L MPV 7.2 L Glucose 304 H Hemoglobin A1c 11.6 H GGT 51 H Alkaline Phosphatase 121 H C-Reactive Protein 1.0 H Albumin Albumin/Globulin Ratio Triglycerides 274 H TSH 5.78 H 08/04/17 08/04/17 08/03/17 04:45 04:45 05:18 WBC 11.1 H RBC 3.56 L 3.56 L Hgb 11.1 L 11.1 L Hct 32.5 L 32.7 L MPV 7.1 L Glucose 302 H Hemoglobin A1c GGT 56 H Alkaline Phosphatase 127 H C-Reactive Protein Albumin 3.1 L Albumin/Globulin Ratio 0.9 L Triglycerides 237 H TSH 08/03/17 05:18 WBC RBC Hgb Hct MPV Glucose 337 H Hemoglobin A1c GGT 59 H Alkaline Phosphatase 128 H C-Reactive Protein Albumin Albumin/Globulin Ratio Triglycerides 257 H TSH Meds: Medications Acetaminophen (Tylenol) 650 mg PO Q6HP PRN PRN Reason: PAIN/FEVER > 101 Hydrocodone Bitart/Acetaminophen ([place] 10/325mg) 2 tab PO Q4HP PRN PRN Reason: Pain Last Admin: 08/05/17 17:59 Dose: 2 tab Albuterol Sulfate (Ventolin) 2.5 mg NEB Q2HP PRN PRN Reason: Shortness Of Breath Cyclobenzaprine HCl (Flexeril) 10 mg PO TID [facility] Last Admin: 08/05/17 15:19 Dose: 10 mg Dextrose (Dextrose 50%) 0 ml IV UD PRN PRN Reason: Hypoglycemia Diagnostic Test (Pha) (Accu-Chek) 1 each FS ACHS [facility] Last Admin: 08/05/17 16:39 Dose: 1 each Docusate Sodium (Colace) 100 mg PO BIDP PRN PRN Reason: Constipation Last Admin: 08/04/17 07:58 Dose: 100 mg Gabapentin (Neurontin) 800 mg PO TID [facility] Last Admin: 08/05/17 15:19 Dose: 800 mg Heparin Sodium (Porcine) (Heparin) 5,000 unit SQ Q12 [facility] Last Admin: 08/05/17 09:03 Dose: 5,000 unit Hydromorphone HCl (Dilaudid) 2 mg PO Q4-6HP PRN PRN Reason: Pain Last Admin: 08/05/17 16:10 Dose: 2 mg Hydromorphone HCl (Dilaudid) 1 mg IV ONCE [facility] Last Admin: 08/05/17 09:05 Dose: 1 mg Hydromorphone HCl (Dilaudid) 1 mg IV BIDP PRN PRN Reason: Pain Last Admin: 08/04/17 22:52 Dose: 1 mg Gentamicin Sulfate 40 mg/Clindamycin Phosphate 300 mg/Bacitracin 25,000 unit/ Sodium Chloride 503 mls @ 0 mls/hr IRR BID [facility] PRN Reason: As Directed Last Admin: 08/05/17 09:08 Dose: 10 mls/hr Cefepime HCl 1 gm/ Dextrose 50 mls @ 100 mls/hr IV Q12H [facility] Last Infusion: 08/05/17 09:40 Dose: Infused Insulin Glargine (Lantus) 50 unit SQ BID [facility] Last Admin: 08/05/17 09:04 Dose: 50 unit Insulin Human Lispro (Humalog) 10 unit SQ AC [facility] Last Admin: 08/05/17 16:44 Dose: 10 unit Insulin Human Lispro (Humalog) 0 unit SQ ACHS [facility] PRN Reason: Protocol Last Admin: 08/05/17 16:43 Dose: 10 unit Linezolid (Zyvox) 600 mg PO BID [facility] Last Admin: 08/05/17 09:07 Dose: 600 mg Magnesium Hydroxide (Milk Of Magnesia) 30 ml PO DAILYP PRN PRN Reason: Constipation Naloxone HCl (Narcan) 0.1 mg IV Q2MIN PRN PRN Reason: Opiate Reversal Ondansetron HCl (Zofran) 4 mg IV Q4HP PRN PRN Reason: Nausea And Vomiting Last Admin: 08/03/17 16:00 Dose: 4 mg Sodium Chloride (Saline Flush) 10 ml IV Q8 [facility] Last Admin: 08/05/17 14:45 Dose: Not Given Tramadol HCl (Ultram) 50 mg PO Q6HP PRN PRN Reason: Pain Last Admin: 08/05/17 17:59 Dose: 50 mg Trazodone HCl (Desyrel) 50 mg PO HS [facility] Last Admin: 08/04/17 21:09 Dose: 50 mg Medical - PN: A/P - Narrative A/P Narrative: #1. Infectious disease. -Patient presents with uncontrolled diabetic foot infection. She is status post inpatient treatment earlier this month. She now presents with worsening infection, leukocytosis, tachycardia, uncontrolled diabetes. Patient is status post I&D; cultures NGTD. She was changed to oral linezolid, as her pharmacy does not have the IV form. Cefepime was added due to 's concerns about her past problems with wound healing, and uncontrolled diabetes. Continue local wound care. 2. Endocrine. -Uncontrolled type I/II diabetes. Nonketotic hyperosmolar syndrome. Accu-Cheks are ranging 130-306 today. Remains on usual twice daily Lantus, plus sliding scale. Continue diet education as well. Dietitian is meeting with her as well. Patient states glucoses at home in 100-200 range. Hemoglobin A1c 11.6% indicating an average glucose of 280 over the past few months. -Abnormal TSH. Elevated TSH earlier this month, 5.62 now (minimally elevated). Not on replacement. Will check FT4, may represent sick euthyroid syndrome. 3. GI. Enlarged liver and abnormal LFTs, while taking an anabolic steroid (was on for appetite stimulation). -Holding steroids. This is a high risk medication. LFTs improving. 4. Hematologic. She presents with elevated protein and globulin levels, in addition to leukocytosis and thrombocytosis. -Continue to monitor. Improving. 5. CODE STATUS: Full code. 6. DVT prophylaxis: Subcu heparin. 7. Chronic pain. Continues on home medications, Flexeril, tramadol, hydrocodone , gabapentin. -IV Dilaudid changed to p.o., as we moved towards outpatient care, with PRN IV doses with dressing changes. -Will give one extra dose of IV meds due to early breakthrough with orals, but doubt will need any further IV additions. 8. Psychiatric. History of depression. -Continue Lexapro, gabapentin, trazodone #9. Pulmonary. Patient with cough, CXR is suggestive of a small vague groundglass infiltrate in the right upper lobe. Cefepime was added to cover any brewing pneumonia. -Add albuterol nebs, as needed oxygen.
[2017-08-05] MEDS: traZODone HCL 50 MG TABLET PO SCH (21:13)
[2017-08-06] MEDS: HYDROcodone/APAP 10/325MG TABLET PO PRN ×3 (01:20→20:02)
[2017-08-06] MEDS: HYDROmorphone 2 MG TABLET PO PRN ×3 (03:26→21:56)
[2017-08-06] MEDS: traMADol 50 MG TABLET PO PRN ×2 (03:26→20:02)
[2017-08-06 06:02] LABS: Basophils # (Auto) 0 K/mcL (0.0-0.3); Basophils % (Auto) 0.4 % (0.0-2.0); Eosinophils # (Auto) 0.5 K/mcL (0.0-0.7); Eosinophils % (Auto) 4.1 % (0.0-7.0); Granulocytes % (Auto) 59.5 % (38.0-78.0); Lymphocytes # (Auto) 3.5 K/mcL (1.5-4.8); Lymphocytes % (Auto) 30.8 % (15.5-49.0); Mean Cell Volume 91.6 fL (80.0-100.0); Mean Corpuscular Hemoglobin 31.1 pg (26.0-34.0); Monocytes # (Auto) 0.6 K/mcL (0.1-0.9); Monocytes % (Auto) 5.2 % (1.0-12.0); Platelet Count 365 K/mcL (140-440); RBC 3.55 M/mcL (4.00-5.20); Red Cell Distribution Width 13.5 % (11.5-14.5)
[2017-08-06 06:58] LABS: Free T4 (Free Thyroxine) 1.08 ng/dl (0.7-1.7)
[2017-08-06] MEDS: 0.9 % SODIUM CHLORIDE 10 ML SYRINGE IV SCH ×3 (07:25→20:37)
[2017-08-06] MEDS: INSULIN LISPRO 1 UNIT/0.01 ML UNIT SQ SCH ×7 (07:29→20:36)
[2017-08-06] MEDS: INSULIN GLARGINE, HUMAN 1 UNIT/0.01 ML SQ SCH ×2 (08:38→20:33)
[2017-08-06] MEDS: CEFEPIME 1 GM in DEXTROSE 5% IN WATER 50 ML IV SCH ×2 (08:38→20:33)
[2017-08-06] MEDS: GABAPENTIN 400 MG CAPSULE PO SCH ×3 (08:39→20:38)
[2017-08-06] MEDS: HEPARIN 5,000 UNIT/ML VIAL SQ SCH ×2 (08:39→20:34)
[2017-08-06] MEDS: LINEZOLID 600 MG TABLET PO SCH ×2 (08:40→20:38)
[2017-08-06] MEDS: CYCLOBENZAPRINE 10 MG TABLET PO SCH ×3 (08:40→20:38)
[2017-08-06] MEDS: HYDROmorphone 2 MG/ML SYRINGE IV SCH (12:49)
[2017-08-06] MEDS: GENTAMICIN SULFATE 40 MG, CLINDAMYCIN 300 MG, BACITRACIN 25,000 UNIT in SODIUM CHLORIDE... IRR SCH ×2 (12:49→22:30)
[2017-08-06] MEDS: traZODone HCL 50 MG TABLET PO SCH (20:38)
--- NOTE | 2017-08-06 21:30 | Internal Med Progress Note ---
Medical - PN: Subj Patient information: Note initiated : 08/06/17 at 9:28 pm Service Date, if different from initiated Date: [] Patient: Jeanette Gonzalez a 41 y/o F admitted on 08/01/17 for Right Foot Infection/ Cellulitis & Abscess of Foot. Chief Complaint: f/u DM foot wound Interval history: August 01, 2017: History of present illness: Ms. Gonzalez is a 41 year old female who had a type II/type I 0.5 diabetes for the last 15 years. A while back she developed an ulcer near the pinky toe of her right foot. She was just discharged from this hospital on July 26 for treatment of associated cellulitis. She was on IV Rocephin as an outpatient, and completed that. However, her foot has become progressively more swollen and more tender over the last several days. She presented to wound care clinic today for follow-up, and was immediately sent to the emergency room. She notes she has been having fevers and chills for several days. She notes only minimal drainage from her foot wound. She does check blood sugars 4 times a day, and says her normal is between 102 100, but she has been running 300-500 lately. ER evaluation showed marked leukocytosis, severe hyperglycemia with other electrolyte abnormalities, elevated anion gap. requested that she be admitted for IV antibiotics, and probable wound debridement in the morning. Otherwise, the patient denies headaches or dizziness, new eye or ear symptoms, sore throat or shortness of breath. She has had a cough for about a week, which is minimally productive. She has had some intermittent nausea and vomiting over the last several days. She denies chest pain or palpitations, abdominal pain, diarrhea or constipation, dysuria. August 02: The patient underwent I&D of her right foot today. That apparently went quite well. She has been stable postoperatively. She reports she continues to have quite a bit of pain in spite of IV Dilaudid. She thinks she missed a dose of Flexeril today and may be a dose of gabapentin as well. Otherwise she denies fever chills chest pain or shortness of breath GI or symptoms. August 03: Today, the patient notes that her foot is really throbbing. She wonders if it is supposed to be the swollen. She also notes that she accidentally pulled off the toenail on her right second toe with her blankets . She is rather nervous about her expected course. She is also very concerned that she be able to get enough pain medication. Accu-Cheks were reasonably well controlled yesterday, but then spiked again this morning. She did receive extra insulin, and glucose looks much better at lunchtime. came in to see her this afternoon, and he is concerned it would be extremely careful with getting her wound healing going in the right direction. He feels that she has failed outpatient care and IV antibiotics in the past, and wants to be very aggressive with management of her foot wound, to avoid further complications. He is concerned about her ability to be compliant with care, to remain nonweightbearing, and to manage her diabetes well to help with wound healing. The patient denies fever or chills, chest pain or palpitations, shortness of breath. She does note that she is coughing quite a bit more today, and her cough is productive of yellowish phlegm. She denies abdominal pain, nausea or vomiting, diarrhea or constipation or dysuria. August 04: -The patient continues to complain of severe right foot pain. She is quite upset that we took away her IV Dilaudid and changed her to p.o. He continues to use her other p.o. pain medications as well. We discussed that she will not be able to go home with IV Dilaudid, so we need to manage her with oral meds. We ultimately agreed that she can have IV Dilaudid prior to her twice daily dressing changes, but otherwise will use oral meds. -Her cough is improved. She does not feel that she is having fever or chills or shortness of breath. She was started on antibiotics yesterday for pneumonia. -She otherwise denies fever chills, chest pain or shortness of breath, abdominal pain, nausea or vomiting, diarrhea or constipation, dysuria. August 05: Continues with right foot pain, feels 1 "catch-up" dose of IV hydromorphone would provide relief along with her usual when necessary's, which she is keeping to a regular schedule and taking. Otherwise doing well, no GI symptoms , no diarrhea from the antibiotics. Still has some cough with minimal sputum production. No dyspnea. August 06: Resting comfortably this evening. Foot unwrapped wound examined. No other complaints. Did not request additional pain medication. - Constitutional Vitals: Vital Signs Temp Pulse Resp BP Pulse Ox 97.9 F 83 13 117/73 96 08/06/17 20:00 08/06/17 20:00 08/06/17 20:00 08/06/17 20:00 08/06/17 20:00 Period Temp Pulse Resp BP Sys/Santiago Pulse Ox Last 24 Hr 97.0 F-98.4 F 83-105 12-16 100-117/53-73 96-100 Intake and Output 08/06/17 08/06/17 08/06/17 05:59 13:59 21:59 Intake Total 100 / 100 50 / 50 720 / 720 Output Total 475 / 475 Balance -375 / -375 50 / 50 720 / 720 Weight 163 lb 8 oz Patient Weight 08/07/17 05:59 Weight 163 lb 8 oz Intake & Output: Intake & Output 08/06/17 08/06/17 08/06/17 05:59 13:59 21:59 Intake Total 100 / 100 50 / 50 720 / 720 Output Total 475 / 475 Balance -375 / -375 50 / 50 720 / 720 Weight 163 lb 8 oz Intake: IV 50 / 50 Maxipime 1 gm In Dextrose 5% in 50 / 50 Water 50 ml @ 100 mls/hr IV Q12H [facility] Rx#:[id number] Oral 100 / 100 720 / 720 Output: Void Amount 475 / 475 Other: Meal Cereal, peanuts Percent of Meal Consumed 100% Feeding Ability Independent - Additional findings Additional findings: General: Laying in bed in no acute distress Chest: Respirations unlabored Cardio vascular: Regular, no edema Abdomen: Soft with active bowel sounds Extremities: Right foot with incision proximal to the fourthfifth toe webspace, clean base, no surrounding erythema. Shallow wound on plantar aspect of the fifth MTP region with clean base, no surrounding erythema Medical - PN: Obj Da - Labs CBC & Chem 7: 08/06/17 04:25 08/05/17 04:36 Labs: Abnormal Lab Results 08/06/17 08/05/17 08/05/17 04:25 04:36 04:36 WBC 11.3 H 11.7 H RBC 3.55 L 3.37 L Hgb 11.0 L 10.6 L Hct 32.5 L 31.0 L MPV 7.3 L 7.2 L Glucose Hemoglobin A1c 11.6 H GGT Alkaline Phosphatase C-Reactive Protein 1.0 H Albumin Albumin/Globulin Ratio Triglycerides TSH 5.78 H 08/05/17 08/04/17 08/04/17 04:36 04:45 04:45 WBC RBC 3.56 L Hgb 11.1 L Hct 32.5 L MPV Glucose 304 H 302 H Hemoglobin A1c GGT 51 H 56 H Alkaline Phosphatase 121 H 127 H C-Reactive Protein Albumin 3.1 L Albumin/Globulin Ratio 0.9 L Triglycerides 274 H 237 H TSH Meds: Medications Acetaminophen (Tylenol) 650 mg PO Q6HP PRN PRN Reason: PAIN/FEVER > 101 Hydrocodone Bitart/Acetaminophen ([place] 10/325mg) 2 tab PO Q4HP PRN PRN Reason: Pain Last Admin: 08/06/17 20:02 Dose: 2 tab Albuterol Sulfate (Ventolin) 2.5 mg NEB Q2HP PRN PRN Reason: Shortness Of Breath Last Admin: 08/05/17 20:00 Dose: 2.5 mg Cyclobenzaprine HCl (Flexeril) 10 mg PO TID [facility] Last Admin: 08/06/17 20:38 Dose: 10 mg Dextrose (Dextrose 50%) 0 ml IV UD PRN PRN Reason: Hypoglycemia Diagnostic Test (Pha) (Accu-Chek) 1 each FS ACHS [facility] Last Admin: 08/06/17 20:04 Dose: 1 each Docusate Sodium (Colace) 100 mg PO BIDP PRN PRN Reason: Constipation Last Admin: 08/04/17 07:58 Dose: 100 mg Gabapentin (Neurontin) 800 mg PO TID [facility] Last Admin: 08/06/17 20:38 Dose: 800 mg Heparin Sodium (Porcine) (Heparin) 5,000 unit SQ Q12 [facility] Last Admin: 08/06/17 20:34 Dose: 5,000 unit Hydromorphone HCl (Dilaudid) 2 mg PO Q4-6HP PRN PRN Reason: Pain Last Admin: 08/06/17 18:15 Dose: 2 mg Hydromorphone HCl (Dilaudid) 1 mg IV ONCE [facility] Last Admin: 08/06/17 12:49 Dose: 1 mg Hydromorphone HCl (Dilaudid) 1 mg IV BIDP PRN PRN Reason: Pain Last Admin: 08/04/17 22:52 Dose: 1 mg Gentamicin Sulfate 40 mg/Clindamycin Phosphate 300 mg/Bacitracin 25,000 unit/ Sodium Chloride 503 mls @ 0 mls/hr IRR BID [facility] PRN Reason: As Directed Last Admin: 08/06/17 12:49 Dose: 30 mls/hr Cefepime HCl 1 gm/ Dextrose 50 mls @ 100 mls/hr IV Q12H [facility] Last Admin: 08/06/17 20:33 Dose: 100 mls/hr Insulin Glargine (Lantus) 50 unit SQ BID [facility] Last Admin: 08/06/17 20:33 Dose: 50 unit Insulin Human Lispro (Humalog) 10 unit SQ AC [facility] Last Admin: 08/06/17 16:40 Dose: 10 unit Insulin Human Lispro (Humalog) 0 unit SQ ACHS [facility] PRN Reason: Protocol Last Admin: 08/06/17 20:36 Dose: 8 unit Linezolid (Zyvox) 600 mg PO BID [facility] Last Admin: 08/06/17 20:38 Dose: 600 mg Magnesium Hydroxide (Milk Of Magnesia) 30 ml PO DAILYP PRN PRN Reason: Constipation Naloxone HCl (Narcan) 0.1 mg IV Q2MIN PRN PRN Reason: Opiate Reversal Ondansetron HCl (Zofran) 4 mg IV Q4HP PRN PRN Reason: Nausea And Vomiting Last Admin: 08/03/17 16:00 Dose: 4 mg Sodium Chloride (Saline Flush) 10 ml IV Q8 [facility] Last Admin: 08/06/17 20:37 Dose: 10 ml Tramadol HCl (Ultram) 50 mg PO Q6HP PRN PRN Reason: Pain Last Admin: 08/06/17 20:02 Dose: 50 mg Trazodone HCl (Desyrel) 50 mg PO HS [facility] Last Admin: 08/06/17 20:38 Dose: 50 mg Medical - PN: A/P (1) Hyperglycemia due to type 2 diabetes mellitus Problem details: Chronic malnutrition. Low pre albumin Nutrition / Dietary consult and Diabetic Teaching. Status: Acute Current Visit: Yes (2) Diabetic peripheral neuropathy Status: Chronic Current Visit: Yes (3) Diabetes mellitus with foot ulcer due to multiple causes Problem details: Continue current wound care for right foot plantar ulcer and fungal infection between toes. Status: Acute Current Visit: Yes - Narrative A/P Narrative: 1. Infectious disease. -Patient presents with uncontrolled diabetic foot infection. She is status post inpatient treatment earlier this month. She now presented with worsening infection, leukocytosis, tachycardia, uncontrolled diabetes. Patient is status post I&D; cultures NGTD. She was changed to oral linezolid, as her pharmacy does not have the IV form. Cefepime was added due to 's concerns about her past problems with wound healing, and uncontrolled diabetes. Continue local wound care. 2. Endocrine. -Uncontrolled type I/II diabetes. Nonketotic hyperosmolar syndrome. Accu-Cheks are ranging 199-308 today. Remains on usual twice daily Lantus, plus sliding scale. Continue diet education as well. Dietitian is meeting with her as well. Patient states glucoses at home in 100-200 range. Hemoglobin A1c 11.6% indicating an average glucose of 280 over the past few months. -Abnormal TSH. Elevated TSH earlier this month, 5.62 now (minimally elevated). Not on replacement. FT4 normal, suspect this represents sick euthyroid syndrome. 3. GI. Enlarged liver and abnormal LFTs, while taking an anabolic steroid (was on for appetite stimulation). -Holding steroids. This is a high risk medication. LFTs improving. 4. Hematologic. She presents with elevated protein and globulin levels, in addition to leukocytosis and thrombocytosis. -Continue to monitor. Improving. 5. CODE STATUS: Full code. 6. DVT prophylaxis: Subcu heparin. 7. Chronic pain. Continues on home medications, Flexeril, tramadol, hydrocodone , gabapentin. -IV Dilaudid changed to p.o., as we moved towards outpatient care, with PRN IV doses with dressing changes. -No further extra-doses of IV meds. 8. Psychiatric. History of depression. -Continue Lexapro, gabapentin, trazodone #9. Pulmonary. Patient with cough, CXR is suggestive of a small vague groundglass infiltrate in the right upper lobe. Cefepime was added to cover any brewing pneumonia. -Add albuterol nebs, as needed oxygen.
[2017-08-06] MEDS: HYDROmorphone 2 MG/ML SYRINGE IV PRN (21:31)
[2017-08-07] MEDS: HYDROcodone/APAP 10/325MG TABLET PO PRN ×3 (00:01→08:12)
[2017-08-07] MEDS: HYDROmorphone 2 MG TABLET PO PRN ×2 (01:29→05:58)
[2017-08-07] MEDS: traMADol 50 MG TABLET PO PRN ×2 (01:30→08:12)
[2017-08-07] MEDS: 0.9 % SODIUM CHLORIDE 10 ML SYRINGE IV SCH (05:58)
[2017-08-07] MEDS: INSULIN LISPRO 1 UNIT/0.01 ML UNIT SQ SCH ×4 (07:29→11:44)
[2017-08-07] MEDS: HYDROmorphone 2 MG/ML SYRINGE IV SCH (08:11)
[2017-08-07] MEDS: HEPARIN 5,000 UNIT/ML VIAL SQ SCH (09:17)
[2017-08-07] MEDS: GENTAMICIN SULFATE 40 MG, CLINDAMYCIN 300 MG, BACITRACIN 25,000 UNIT in SODIUM CHLORIDE... IRR SCH (09:18)
[2017-08-07] MEDS: INSULIN GLARGINE, HUMAN 1 UNIT/0.01 ML SQ SCH (09:19)
[2017-08-07] MEDS: GABAPENTIN 400 MG CAPSULE PO SCH (09:19)
[2017-08-07] MEDS: CYCLOBENZAPRINE 10 MG TABLET PO SCH (09:19)
[2017-08-07] MEDS: LINEZOLID 600 MG TABLET PO SCH (09:19)
[2017-08-07] MEDS: CEFEPIME 1 GM in DEXTROSE 5% IN WATER 50 ML IV SCH (09:20)
--- NOTE | 2017-08-07 10:02 | General Surgery Progress Note ---
Subjective Patient reports: no new complaints Narrative: Note initiated : 08/07/17 at 10:00 am Service Date, if different from initiated Date: [] Patient: Jeanette Gonzalez 41 y/o F admitted on 08/01/17 for Right Foot Infection/ Cellulitis & Abscess of Foot. Chief Complaint: [] Saw patient on rounds with Rosaline PARKER on [facility] and Lesly Catherine Wound Nurse. Examined right foot wounds. Objective Temp Pulse Resp BP Pulse Ox 97.6 F 102 H 16 145/81 96 08/07/17 06:40 08/07/17 04:00 08/07/17 06:40 08/07/17 06:40 08/07/17 07:34 AVSS. No acute changes in MARYSOL. Right foot wounds are healing well. Post surgical wound is CDI, granulating and celeste well. - Additional Data Intake & Output - Last 24 hours: Intake & Output 08/05/17 08/06/17 08/07/17 08/08/17 05:59 05:59 05:59 05:59 Intake Total 4041 / 4041 1959 / 1959 Output Total 3975 / 3975 1425 / 1425 1200 / 1200 Balance 66 / 66 535 / 535 820 / 820 Weight 163 lb 4.8 oz 163 lb 8 oz 163 lb 8 oz - Labs 08/06/17 04:25 08/05/17 04:36 Assessment and Plan (1) Sepsis affecting skin Problem details: CSSSI right 5 th toe. ? Necrotizing skin infection Abscess with superimposed cellulitis. Needs OR debridement, possible toe amputation. Status: Acute Assessment and plan: Assessment : Postoperative day #1. Satisfactory progress. Still has significant pain and is NWB Right foot. NEEDS Local wound care round the clock with dressing changes and titrating insulin as per blood sugars. to continue on PO Zyvox at this time. Patient is NOT ready for discharge. Will CLOSELY monitor progress and compliance with instructions. Plan: Continue current management. May change IV to Heplock per Hospitalist instructions. Consult nutrition and Diabetes clinician nurse. Following patient. Current Visit: Yes - Time Spent With Patient Total time spent is greater than 50% in coordination of care (as documented) at patient's floor/unit and/or counseling patient: Assessment : Satisfactory progress from wound care point of view: HYPOTHYROID TSH over 5 Multiple Endocrine, Social, Medical, Infectious Disease (antibiotic management ) and wound related issues. CHRONIC NEEDS Coordination of her care through her PCP. John DODD. Plan: OK for discharge from wound care point of view: Following instructions. NON WEIGHT bearing on right foot. Walker or Off Loading shoe for ambulation Wound dressings T I D. Clean with NS and apply Bacitracin oint and dry gauze protective dressings with Kerlix bandage ZYVOX 600 mg PO q 12 hrly for 10 days. Patient to call her PCP for coordination of all her treatment / consult and ongoing care. AFTER DISCHARGE follow up at wound center at [facility] in ONE week. 25 - 35 minutes
[2017-08-07] MEDS ORDERED: HYDROmorphone 2 MG/ML SYRINGE IV ONE (11:00)
--- NOTE | 2017-08-07 11:02 | Discharge Summary ---
Medical - DS: Prov Patient information: Note initiated : 08/07/17 at 10:58 am Service Date, if different from initiated Date: [] Patient: Jeanette Gonzalez 41 y/o F admitted on 08/01/17 for Right Foot Infection/ Cellulitis & Abscess of Foot. Chief Complaint: [] Date of admission: 08/01/17 19:55 Discharge date: 08/07/17 Primary care physician: John Chong Admitting clinician: Kalyani Wakefield Consults: 08/01/17 18:48 Consult to Physician [CONS] Stat Comment: Consulting Provider: Kalyani Wakfeield Reason For Exam: Physician to Consult 08/01/17 19:47 Consult to Physician [CONS] Stat Comment: Consulting Provider: Skyler Nichols Reason For Exam: Physician to Consult Discharging clinician: Yelitza Soares Medical - DS: Meds - Discharge Medications Prescriptions: Linezolid [Zyvox] 600 mg PO BID #20 tab Active and Home Medications: Home Medications traMADol [Ultram] 50 mg PO Q6HP PRN 02/08/17 [History Confirmed 08/01/17 Last Taken 08/01/17 13:00] HYDROcodone/APAP 10/325MG [[place] 10/325Mg] 1 - 2 tab PO Q4H PRN 04/20/17 [ History Confirmed 08/01/17 Last Taken 08/01/17] traZODone HCL [Desyrel] 50 mg PO HS 04/20/17 [History Confirmed 08/01/17 Last Taken 07/31/17] Gabapentin 800 mg PO TID #90 tab 06/08/17 [Rx Confirmed 08/01/17 Last Taken 08/08 14:30] Insulin Aspart [Novolog] See Protocol SQ ACHS #1 each 06/08/17 [Rx Confirmed 08/08 Last Taken 08/01/17] Insulin Glargine,Hum.rec.anlog [Lantus Solostar] 50 unit SQ BID #1 each [Rx Confirmed 08/01/17 Last Taken 08/01/17] Insulin Lispro [Humalog] 10 unit SQ AC #1 each 06/08/17 [Rx Confirmed 08/01/17 Last Taken 08/01/17] Cyclobenzaprine [Flexeril] 10 mg PO TID 08/01/17 [History Confirmed 08/01/17 Last Taken 08/01/17 08:00] Oxandrolone [Oxandrin] 5 mg PO DAILY 08/01/17 [History Confirmed 08/01/17 Last Taken 08/01/17 08:00] Medical - DS: [facility] Hospital course: Mr. Gonzalez is a 41 year old F who presented to wound care clinic on the evening of admission with severe pain in the right foot, sepsis, cellulitis and fever with nausea and vomiting. She was referred to the ED, evaluated and admitted to medicine. Dr. Nichols consulted. On the day following admission, the patient was taken to the OR for debridement skin and skin structure infection of the right fifth toe. She had evidence of increased compartmental pressure, cellulitis without abscess. Details of op note are below. Postoperatively, the patient was treated with wound care, antibiotics. She was covered broadly. She continued in house for wound care until it was assured that her wound was healing. She'll be discharged to continue 10 further days of Zyvox. She was able to perform her own dressing change at the time of discharge. Pain control was a challenge during her hospital stay. She has chronic neuropathic pain, complicated by acute postoperative pain. She initially was using significant doses of intravenous hydromorphone. This was transitioned to oral hydromorphone, mixed with her usual hydrocodone/acetaminophen preparation. She received IV hydromorphone with dressing changes. Her diabetes was difficult to control, with hyperglycemia at times. She was continued on Lantus 50 units twice a day, 10 units of Humalog with meals along with sliding scale. This is her home regimen. At time she had good control, other times glucoses were up to 300. Hemoglobin A1c was 11.6% during this hospitalization. This is improved from a few months ago. Patient did have some abnormal liver function tests. She had been on oxandrolone to improve her nutritional status since her hospitalization in May. This was stopped, she had normalization of her liver function. This medication will not be continued after discharge. The patient had had abnormal TSH, and the 15 range earlier this year. It was rechecked, was 5.72 (minimally elevated) and free T4 was normal, suggesting sick euthyroid syndrome. She was not prescribed levothyroxine. At the time of discharge, Dr. Nichols has requested follow-up in one week. The patient tells me she is endeavoring to establish with a neon molder, and plans to continue to work with real estate management specialist for her glucose control. She also has follow-up with primary care at the end of this week. She'll continue to do local wound care as surgical wound heals in. She'll continue antibiotics for 10 further days. Discharge diagnosis: Diabetic sking and skin structure foot infection (right foot) Secondary discharge diagnosis: Type II DM Chronic pain Sick euthyroid syndrome Depression Pertinent studies/significant findings: Right foot x-ray 08/01/2017 IMPRESSION: Diffuse soft tissue swelling compatible with cellulitis. No specific radiographic evidence of osteomyelitis - Time Spent with Patient Total time spent providing and/or coordinating discharge services: Greater than 30 minutes Medical - DS: Exam - Constitutional Vitals: Vital Signs Temp Pulse Resp BP BP Pulse Ox 08/07/17 08:00 98 08/07/17 07:34 96 08/07/17 06:40 97.6 F 16 145/81 96 08/07/17 04:00 98 F 102 H 16 149/73 93 08/07/17 00:00 101 H 19 151/72 96 08/06/17 20:00 97.9 F 83 13 117/73 96 08/06/17 16:00 98 08/06/17 15:34 98 F 16 114/69 97 08/06/17 11:13 97.6 F 16 109/61 97 Intake and Output 08/06/17 08/07/17 08/07/17 21:59 05:59 13:59 Intake Total 770 / 770 1200 / 1200 Output Total 600 / 600 600 / 600 Balance 170 / 170 600 / 600 Intake: IV 50 / 50 Maxipime 1 gm In Dextrose 5% in 50 / 50 Water 50 ml @ 100 mls/hr IV Q12H [facility] Rx#:[id number] Oral 720 / 720 1200 / 1200 Output: Void Amount 600 / 600 600 / 600 Other: Weight 163 lb 8 oz - Other Additional findings: General: Suitable alternative acute distress Chest: Clear to auscultation, respirations unlabored Cardiovascular: Regular rate and rhythm, no peripheral edema especially abdomen : Soft, nontender Neuro: Alert, oriented 3 Extremities: Right foot is dressed, no erythema noted. Medical - DS: Data Procedures and tests throughout hospitalization: August 02, 2017: OPERATION: Debridement of right fifth toe wire dorsal incision limited fasciotomy, tissue samples for cultures and sensitivity, open packing. SURGEON: Skyler Nichols MD ANESTHESIOLOGIST: Phil Payne CRNA. INTRAOPERATIVE FINDINGS: Compartment syndrome closed infection without purulence, soft tissue edema dorsal aspect of right foot extending up to the anterior ankle area. COMPLICATIONS: None. BLOOD LOSS: 3 mL Labs on day of discharge: Laboratory Last Values WBC 11.3 K/mcL (4.5-11.0) H 08/06/17 04:25 RBC 3.55 M/mcL (4.00-5.20) L 08/06/17 04:25 Hgb 11.0 g/dL (12.0-15.0) L 08/06/17 04:25 Hct 32.5 % (36.0-48.0) L 08/06/17 04:25 MCV 91.6 fL (80.0-100.0) 08/06/17 04:25 MCH 31.1 pg (26.0-34.0) 08/06/17 04:25 MCHC 34.0 g/dL (31.0-36.0) 08/06/17 04:25 RDW 13.5 % (11.5-14.5) 08/06/17 04:25 Plt Count 365 K/mcL (140-440) 08/06/17 04:25 MPV 7.3 fL (7.4-10.4) L 08/06/17 04:25 Gran % 59.5 % (38.0-78.0) 08/06/17 04:25 Lymph % (Auto) 30.8 % (15.5-49.0) 08/06/17 04:25 Appling % (Auto) 5.2 % (1.0-12.0) 08/06/17 04:25 Eos % (Auto) 4.1 % (0.0-7.0) 08/06/17 04:25 Baso % (Auto) 0.4 % (0.0-2.0) 08/06/17 04:25 Gran # 6.7 K/mcL (1.8-8.0) 08/06/17 04:25 Lymph # (Auto) 3.5 K/mcL (1.5-4.8) 08/06/17 04:25 [place]ling # (Auto) 0.6 K/mcL (0.1-0.9) 08/06/17 04:25 Eos # (Auto) 0.5 K/mcL (0.0-0.7) 08/06/17 04:25 Baso # (Auto) 0 K/mcL (0.0-0.3) 08/06/17 04:25 Total Counted 100 08/01/17 16:30 Seg Neutrophils % 74 % (38-78) 08/01/17 16:30 Band Neutrophils % Not Reportable 08/01/17 16:30 Lymphocytes % 23 % (15-49) 08/01/17 16:30 Monocytes % (Manual) 3 % (1-12) 08/01/17 16:30 Platelet Estimate Increased (NORMAL) 08/01/17 16:30 RBC Morphology Normal (NORMAL) 08/01/17 16:30 Sodium 133 mmol/L (133-145) 08/05/17 04:36 Potassium 4.9 mmol/L (3.3-5.1) 08/05/17 04:36 Chloride 96 mmol/L (96-108) 08/05/17 04:36 Carbon Dioxide 27 mmol/L (22-30) 08/05/17 04:36 Anion Gap 10.0 (8-16) 08/05/17 04:36 BUN 12 mg/dl (6-20) 08/05/17 04:36 Creatinine 0.8 mg/dl (0.6-1.1) 08/05/17 04:36 GFR Calculation 92 08/05/17 04:36 Glucose 304 mg/dL (70-105) H 08/05/17 04:36 Hemoglobin A1c 11.6 % HGB (4.0-6.0) H 08/05/17 04:36 Estim Average Glucose 286 mg/dL 08/05/17 04:36 Uric Acid 5.1 mg/dL (2.5-8.0) 08/05/17 04:36 Calcium 8.9 mg/dl (8.6-10.4) 08/05/17 04:36 Phosphorus 4.2 mg/dL (2.7-4.5) 08/05/17 04:36 Magnesium 1.9 mg/dL (1.6-2.5) 08/05/17 04:36 Total Bilirubin 0.2 mg/dL (0.0-1.0) 08/05/17 04:36 Direct Bilirubin < 0.2 mg/dL (0.0-0.3) 08/05/17 04:36 GGT 51 U/L (5-36) H 08/05/17 04:36 AST 17 U/l (0-37) 08/05/17 04:36 ALT 17 U/l (0-40) 08/05/17 04:36 Alkaline Phosphatase 121 U/L (39-117) H 08/05/17 04:36 Lactate Dehydrogenase 160 U/L (94-250) 08/05/17 04:36 C-Reactive Protein 1.0 mg/dl (0.0-0.8) H 08/05/17 04:36 Total Protein 6.5 gm/dL (5.9-8.4) 08/05/17 04:36 Albumin 3.3 gm/dL (3.2-5.2) 08/05/17 04:36 Globulin 3.2 gm/dL (2.2-3.7) 08/05/17 04:36 Albumin/Globulin Ratio 1.0 (1.0-2.3) 08/05/17 04:36 Prealbumin 23.4 mg/dl (20-40) 08/05/17 04:36 Triglycerides 274 mg/dl (<150) H 08/05/17 04:36 Beta-Hydroxybutyrate 0.12 mmol/L (< 0.27) 08/01/17 16:30 TSH 5.78 uIU/ml (0.27-5.01) H 08/05/17 04:36 Free T4 1.08 ng/dl (0.7-1.7) 08/06/17 04:25 Urine Color Straw 08/01/17 19:05 Urine Appearance Clear 08/01/17 19:05 Urine pH 6.0 (5.0-9.0) 08/01/17 19:05 Ur Specific Conifer 1.030 (1.000-1.035) 08/01/17 19:05 Urine Protein Neg mg/dL (NEG) 08/01/17 19:05 Urine Glucose (UA) >=500 mg/dL (NEG) A 08/01/17 19:05 Urine Ketones Neg mg/dL (NEG) 08/01/17 19:05 Urine Occult Blood >=1.0 mg/dL (<0.03) A 08/01/17 19:05 Urine Nitrate Neg (NEG) 08/01/17 19:05 Urine Bilirubin Neg mg/dL (NEG) 08/01/17 19:05 Urine Urobilinogen Neg mg/dL (NEG) 08/01/17 19:05 Ur Leukocyte Esterase Neg /uL (NEG) 08/01/17 19:05 Urine RBC 178 /hpf (0-1) H 08/01/17 19:05 Urine WBC 3 /hpf (0-4) 08/01/17 19:05 Ur Squamous Epith Cells 0 /hpf (0-4) 08/01/17 19:05 Urine Bacteria 0 /hpf (0) 08/01/17 19:05 Urine Mucus Few /hpf (0) 08/01/17 19:05 Urine Yeast (Budding) Few /hpf (0) A 08/01/17 19:05 Ur Culture Indicated? Yes 08/01/17 19:05 Urine Opiates Screen None detected (NONDETECTED) 08/01/17 19:04 Ur Opiates Confirm Not Reportable 08/01/17 19:04 Ur Oxycodone Screen None detected (NONDETECTED) 08/01/17 19:04 Urine Methadone Screen None detected (NONDETECTED) 08/01/17 19:04 Ur Methadone Confirm Not Reportable 08/01/17 19:04 Ur Barbiturates Screen None detected (NONDETECTED) 08/01/17 19:04 Ur Barbiturate Confirm Not Reportable 08/01/17 19:04 Ur Phencyclidine Scrn None detected (NONDETECTED) 08/01/17 19:04 Urine PCP Confirm Not Reportable 08/01/17 19:04 Ur Amphetamines Screen None detected (NONDETECTED) 08/01/17 19:04 U Benzodiazepines Scrn None detected (NONDETECTED) 08/01/17 19:04 U Benzodiazepine Confm Not Reportable 08/01/17 19:04 Urine Cocaine Screen None detected (NONDETECTED) 08/01/17 19:04 Urine Cocaine Confirm Not Reportable 08/01/17 19:04 U Cannabinoids Confirm Not Reportable 08/01/17 19:04 U Marijuana (THC) Screen None detected (NONDETECTED) 08/01/17 19:04 Medical - DS: A/P - Patient/Caregiver Discharge Instructions Activity: other (Non-weight bearing on right foot) Diet: Consistent Carbohydrate Additional Instructions: Follow up with Yoana Chong at [facility] for coordination of care. Continue to establish with podiatry and follow-up with diabetes management and an resident programs assistant. Continue your plan to have a production line solderer come to your home to review dietary choices. - Problem Maintenance (1) Hyperglycemia due to type 2 diabetes mellitus Status: Acute Comment: Chronic malnutrition. Low pre albumin, improved 07/2017 Nutrition / Dietary consult and Diabetic Teaching. Qualifiers: Diabetes mellitus terminal makeup operator insulin use: with care home use Qualified Code( s): E11.65 - Type 2 diabetes mellitus with hyperglycemia; Z79.4 - terminal makeup operator ( current) use of insulin (2) Diabetic peripheral neuropathy Status: Chronic (3) Diabetes mellitus with foot ulcer due to multiple causes Status: Acute Comment: Continue current wound care for right foot plantar ulcer and fungal infection between toes. - Follow up Plan Follow up with: Skyler Nichols MD [Physician] - (Make appt. to follow up 1 week after discharge) John Chong [Primary Care Provider] - 08/11/17 (As scheduled) Disposition: Home, Self-Care Prognosis: Undetermined Rehab Potential: Undetermined
== END 2017-08-07 13:30 | disposition home or self-care (01) | DRG 853 ==
LOC: ED 16:00 → MEDSUR 19:55
PROVIDERS: ADMIT Internal Medicine; ATTEND Internal Medicine

== ENCOUNTER 2018-12-18 12:52 | Inpatient (IN) ==
[2018-12-18] MEDS ORDERED: IOPAMIDOL 100 ML BOTTLE IV ONE (12:53)
[2018-12-18] MEDS ORDERED: PROMETHAZINE 25 MG/ML VIAL IV ONE (13:07)
[2018-12-18] MEDS ORDERED: 0.9 % SODIUM CHLORIDE 1,000 ML IV ONE ×2 (13:07→15:53)
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
[2018-12-18] MEDS ORDERED: ONDANSETRON 4 MG/2 ML VIAL IV ONE ×2 (13:44→16:35)
[2018-12-18] MEDS ORDERED: HYDROmorphone 2 MG/ML VIAL IV PRN (13:51)
[2018-12-18 13:58] LABS: Basophils # (Auto) 0.1 K/mcL (0.0-0.3); Basophils % (Auto) 0.6 % (0.0-2.0); Eosinophils # (Auto) 0.2 K/mcL (0.0-0.7); Eosinophils % (Auto) 2.1 % (0.0-7.0); Granulocytes % (Auto) 68.7 % (38.0-78.0); Lymphocytes % (Auto) 25.1 % (15.5-49.0); Mean Cell Volume 88.6 fL (80.0-100.0); Monocytes # (Auto) 0.4 K/mcL (0.1-0.9); Monocytes % (Auto) 3.5 % (1.0-12.0); Platelet Count 387 K/mcL (140-440); RBC 4.58 M/mcL (4.00-5.20); Red Cell Distribution Width 13.7 % (11.5-14.5)
--- NOTE | 2018-12-18 14:01 | XRay Report ---
HISTORY: Infection first toe with tissue necrosis FINDINGS: There is erosion of much of the tuft of the distal phalanx of the first toe. The overlying soft tissues are swollen and deformed due to the ulceration. The mid and proximal portion of the distal phalanx are normal. The interphalangeal joint space is normal. The metatarsal phalangeal joint is also normal. Comparison with the prior exam from 12/09/18 shows the erosion of the tuft is a new finding. IMPRESSION: Rapidly progressive osteomyelitis involving the tuft in the distal phalanx Interpreted and Authenticated by: Asad Reyna 12/18/18
[2018-12-18 14:15] LABS: ALT/SGPT 20 U/l (0-40); Albumin 4.1 gm/dL (3.2-5.2); Albumin/Globulin Ratio 1.1 (1.0-2.3); Alkaline Phosphatase 122 U/L (39-117); Blood Urea Nitrogen 17 mg/dl (6-20)
[2018-12-18] MEDS ORDERED: VANCOMYCIN PER PHARMACY IV ONE (14:30)
[2018-12-18] MEDS ORDERED: INSULIN REGULAR, HUMAN 1 UNIT/0.01 ML UNIT SQ ONE (15:12)
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
--- NOTE | 2018-12-18 15:59 | Cat Scan Report ---
History: Osteomyelitis in the right first toe TECHNIQUE: The right foot was imaged following injection of 80 cc of nonionic contrast. Sagittal and coronal reformats were created. Radiation exposure was limited using dose reduction technology. FINDINGS: There is erosion of the tuft of the distal phalanx of the first toe. There is cellulitis of the overlying soft tissues. There is also some ulceration of the skin just distal to the tuft. The nail bed as being lifted from the toe through the inflammation. There is subtle fragmentation of the residual portion of the tuft. The infection does not extend into the proximal portion of the bone. The inner phalangeal joint is normal. Proximal phalanx is normal. There is no evidence of an abscess within the foot. The cellulitis is limited to the first toe. The remainder the foot is normal. Incidentally noted are small spurs along the posterior border of the calcaneus. IMPRESSION: Osteomyelitis causing resorption of the tuft of the distal phalanx of the right first toe. Overlying cellulitis No evidence of a foot abscess Monika Hope was called with the results Interpreted and Authenticated by: Asad Reyna 12/18/18
[2018-12-18] MEDS ORDERED: KETAMINE 100 MG/ML ML IV ONE (16:35)
[2018-12-18] MEDS ORDERED: fentaNYL 100 MCG/2 ML VIAL IV ONE (16:35)
[2018-12-18] MEDS ORDERED: GLYCOPYRROLATE 0.2 MG/ML VIAL IV ONE (16:35)
[2018-12-18] MEDS ORDERED: LIDOCAINE HCL/PF 100 MG/5 ML SYRINGE IV ONE (16:35)
[2018-12-18] MEDS ORDERED: PROPOFOL 200 MG/20 ML VIAL IV ONE (16:35)
[2018-12-18] MEDS ORDERED: DEXAMETHASONE 10 MG/ML VIAL IV ONE (16:35)
[2018-12-18] MEDS ORDERED: METOCLOPRAMIDE 10 MG/2 ML VIAL IV ONE (16:35)
[2018-12-18] MEDS ORDERED: FAMOTIDINE/PF 20 MG/2 ML VIAL IV ONE (16:35)
[2018-12-18] MEDS ORDERED: MIDAZOLAM 5 MG/5 ML VIAL IV ONE (16:35)
[2018-12-18] MEDS ORDERED: ONDANSETRON 4 MG/2 ML VIAL IV PRN ×2 (16:47→18:35)
[2018-12-18] MEDS ORDERED: ACETAMINOPHEN 1,000 MG/100 ML BOTTLE IV ONE (16:47)
[2018-12-18] MEDS ORDERED: FLUMAZENIL 0.1 MG/ML ML IV PRN (16:47)
[2018-12-18] MEDS ORDERED: BENZOCAINE/MENTHOL 1 LOZENGE PO PRN (16:47)
[2018-12-18] MEDS ORDERED: NALOXONE HCL 0.4 MG/ML VIAL IV PRN (16:47)
[2018-12-18] MEDS ORDERED: METHOCARBAMOL 1,000 MG/10 ML VIAL IV PRN (16:47)
[2018-12-18] MEDS ORDERED: LACTATED RINGERS 250 ML IV PRN (16:47)
[2018-12-18] MEDS ORDERED: IPRATROPIUM/ALBUTEROL 3 ML AMPUL.NEB NEB PRN (16:47)
[2018-12-18] MEDS ORDERED: LACTATED RINGERS 1,000 ML IV SCH (17:00)
--- NOTE | 2018-12-18 17:13 | Brief Operative Note ---
Date of procedure: 12/18/18 Pre-op diagnosis: Osteomyelitis right great toe Post-op diagnosis: same Procedure: Amputation right great toe Grafts/Implants: No Anesthesia: GETA Complications: none Surgeon: Marcel Green Estimated blood loss (cc): 25 Specimens Removed/Pathology: other (Two cultures, one deep and one superifical #2 is deep) Condition: stable Disposition: floor
[2018-12-18] MEDS: HYDROmorphone 2 MG/ML VIAL IV PRN ×4 (17:35→22:09)
[2018-12-18] MEDS ORDERED: ACETAMINOPHEN 325 MG TABLET PO PRN (18:35)
[2018-12-18] MEDS ORDERED: PROMETHAZINE 25 MG TABLET PO PRN (18:35)
[2018-12-18] MEDS ORDERED: BISACODYL 10 MG SUPP.RECT PR PRN (18:35)
[2018-12-18] MEDS ORDERED: PROCHLORPERAZINE 10 MG/2 ML VIAL IV PRN (18:35)
[2018-12-18] MEDS ORDERED: SENNOSIDES 1 TABLET PO PRN (18:35)
[2018-12-18] MEDS ORDERED: CEFEPIME 2 GM VIAL IV SCH (18:35)
[2018-12-18] MEDS ORDERED: BUPIVACAINE 0.5% 50 ML VIAL IJ ONE (18:47)
[2018-12-18] MEDS ORDERED: POLYETHYLENE GLYCOL 3350 17 GM PACKET PO PRN (18:51)
[2018-12-18] MEDS: INSULIN LISPRO 1 UNIT/0.01 ML UNIT SQ SCH ×2 (18:51→20:24)
[2018-12-18] MEDS: DOCUSATE SODIUM 100 MG CAPSULE PO SCH (19:59)
[2018-12-18] MEDS: DAPTOmycin 500 MG VIAL IV SCH (20:01)
[2018-12-18] MEDS: ENALAPRILAT 1.25 MG/ML VIAL IV SCH ×2 (20:02→23:15)
[2018-12-18] MEDS: INSULIN GLARGINE, HUMAN 1 UNIT/0.01 ML SQ SCH (20:24)
[2018-12-18] MEDS: 0.9 % SODIUM CHLORIDE 10 ML SYRINGE IV SCH (20:24)
[2018-12-18] MEDS ORDERED: HEPARIN 5,000 UNIT/ML VIAL ONE (20:25)
[2018-12-18] MEDS: HYDROcodone/APAP 10/325MG TABLET PO PRN (20:31)
[2018-12-18] MEDS ORDERED: GABAPENTIN 400 MG CAPSULE PO SCH (21:00)
[2018-12-18] MEDS ORDERED: GABAPENTIN 300 MG CAPSULE PO SCH (21:00)
[2018-12-18] MEDS: GABAPENTIN 400 MG CAPSULE PO SCH (22:08)
[2018-12-18] MEDS ORDERED: traZODone HCL 100 MG TABLET PO PRN (23:22)
[2018-12-18] MEDS: traMADol 50 MG TABLET PO PRN (23:54)
[2018-12-19] MEDS ORDERED: CYCLOBENZAPRINE 10 MG TABLET PO ONE (00:01)
[2018-12-19] MEDS: HYDROmorphone 2 MG/ML VIAL IV PRN ×7 (01:17→20:59)
[2018-12-19] MEDS: HYDROcodone/APAP 10/325MG TABLET PO PRN (04:40)
[2018-12-19] MEDS: 0.9 % SODIUM CHLORIDE 10 ML SYRINGE IV SCH ×3 (04:41→21:00)
[2018-12-19] MEDS: ENALAPRILAT 1.25 MG/ML VIAL IV SCH (05:11)
[2018-12-19] MEDS: traMADol 50 MG TABLET PO PRN ×2 (05:58→11:59)
[2018-12-19 06:17] LABS: Basophils # (Auto) 0 K/mcL (0.0-0.3); Basophils % (Auto) 0.3 % (0.0-2.0); Eosinophils # (Auto) 0 K/mcL (0.0-0.7); Eosinophils % (Auto) 0 % (0.0-7.0); Granulocytes % (Auto) 86.2 % (38.0-78.0); Lymphocytes # (Auto) 1.6 K/mcL (1.5-4.8); Lymphocytes % (Auto) 12.2 % (15.5-49.0); Mean Corpuscular HGB Conc 32.9 g/dL (31.0-36.0); Monocytes # (Auto) 0.2 K/mcL (0.1-0.9); Monocytes % (Auto) 1.3 % (1.0-12.0); Platelet Count 347 K/mcL (140-440); RBC 4.01 M/mcL (4.00-5.20); Red Cell Distribution Width 13.9 % (11.5-14.5)
--- NOTE | 2018-12-19 06:47 | Operative Note ---
DATE OF OPERATION: 12/18/2018 PREOPERATIVE DIAGNOSIS: Osteomyelitis, right great toe. POSTOPERATIVE DIAGNOSIS: Osteomyelitis, right great toe. PROCEDURE: Amputation, right great toe. IMPLANTS: None. ANESTHESIA: GETA. COMPLICATIONS: None. ESTIMATED BLOOD LOSS: 25 mL SPECIMENS: Two deep and superficial samples deep for culture and sensitivity, Gram stain, anaerobic, aerobic. DISPOSITION: Floor. INDICATIONS: The patient presented to emergency department with an infected right great toe. She has prior amputation below the knee of the left side related to untreated diabetic complications with the right great toe has purulent drainage and osteomyelitis confirmed on x-ray and CT scan. The patient had ingrown toenail recently and skin slough from the distal tip of the toe. DESCRIPTION OF PROCEDURE: The patient was transferred to the operating room and placed on the operating table in supine position. Right lower extremity was scrubbed, prepped and draped in the usual aseptic manner. General anesthesia was established. A fishmouth incision was created full thickness in the great toe, there is no purulent drainage at the proximal reticulation of the metatarsophalangeal joint. It was carefully sharply disarticulated at this point and passed from the operative field. Two samples were taken from a deep incision at the tip of the toe and also from the remaining stump to verify complete absence of infection on a sample #2. The area was irrigated with copious amount of sterile saline. Any bleeding vessels were ligated or cauterized as encountered. Closure was performed with smooth complete contact of the amputation site utilizing 4-0 Vicryl, 4-0 nylon in vertical interrupted suture fashion. Xeroform, 4 x 4 gauze, Kerlix, Mariano wrap were loosely applied for dressings. She will be admitted to floor and followed to receive antibiotic therapy parenterally. [email or web address] Job ID: [id number] Doc ID: [id number] Marcel Green DPM
[2018-12-19 07:09] LABS: ALT/SGPT 16 U/l (0-40); Albumin 3.4 gm/dL (3.2-5.2); Albumin/Globulin Ratio 0.9 (1.0-2.3); Alkaline Phosphatase 104 U/L (39-117); Bilirubin,Direct < 0.2 mg/dL (0.0-0.3); Blood Urea Nitrogen 15 mg/dl (6-20); Gamma Glutamyl Transpeptidase 33 U/L (5-36)
[2018-12-19] MEDS: INSULIN GLARGINE, HUMAN 1 UNIT/0.01 ML SQ SCH ×2 (07:48→20:57)
[2018-12-19] MEDS: INSULIN LISPRO 1 UNIT/0.01 ML UNIT SQ SCH ×7 (07:48→23:47)
[2018-12-19] MEDS: HEPARIN 5,000 UNIT/ML VIAL SQ SCH ×2 (07:49→20:58)
[2018-12-19] MEDS: ENALAPRIL IV SCH ×4 (07:49→23:50)
[2018-12-19] MEDS: CYCLOBENZAPRINE 10 MG TABLET PO PRN ×2 (07:50→11:59)
[2018-12-19] MEDS: GABAPENTIN 400 MG CAPSULE PO SCH ×3 (07:50→21:00)
[2018-12-19] MEDS: amLODIPine 5 MG TABLET PO SCH (07:50)
[2018-12-19] MEDS: DOCUSATE SODIUM 100 MG CAPSULE PO SCH ×2 (07:50→21:00)
--- NOTE | 2018-12-19 07:51 | Internal Med Progress Note ---
Medical - PN: Subj Patient information: Note initiated : 12/19/18 at 7:44 am Service Date, if different from initiated Date: [] Patient: Jeanette Gonzalez a 43 y/o F admitted on 12/18/18 for Right Great Toe Pain/Infection. Chief Complaint: [] Interval history: Ms. Gonzalez is a 43 year old F to the ED because of concerns regarding her right great toe. She reports that last night she took her sock off and part of her skin came off from the right toe and she began bleeding which took approximately 45 minutes for to stop. She went into [facility] who sent her into the ED because of concern for gangrenous toe. She also notes looks dusky today. She was seen in the ED about 10 days ago for UTI and possible infection of the toe given anabiotic's. Also noted in May 2018 she had a left [id number] amputation for gangrenous lower limb. She will fine yesterday morning but overnight developed fever chills and also had some nausea vomiting. In the ED at x-ray of the toes consistent with ostium myelitis. Blood sugars are 395. Dr. Green and Dr. Mathis were contacted from the ED. Patient will undergo surgical intervention shortly. 12/19 Poor sleep last night because of pain in the right foot. Otherwise no complaints. Review of Systems: denies headache/fever/chills/nausea/vomiting/chest or abdominal pain/cough/dyspnea/diarrhea. Otherwise see above. - Constitutional Vitals: Vital Signs Temp Pulse Resp BP Pulse Ox 98.8 F 103 H 22 180/109 97 12/19/18 06:58 12/19/18 06:58 12/19/18 06:58 12/19/18 06:58 12/19/18 06:58 Period Temp Pulse Resp BP Sys/Santiago Pulse Ox Last 24 Hr 96.7 F-98.8 F 76-110 8-22 105-185/58-111 94-100 Intake and Output 12/18/18 12/19/18 12/19/18 21:59 05:59 13:59 Intake Total 3200 400 Output Total 815 Balance 2385 400 Weight 70.307 kg Intake & Output: Intake & Output 12/18/18 12/19/18 12/19/18 21:59 05:59 13:59 Intake Total 3200 400 Output Total 815 Balance 2385 400 Weight 70.307 kg Intake: IV 2100 Sodium Chloride 0.9% 1,000 ml @ 1000 Wide Open IV BOLUS ONE Rx#: [id number] Oral 400 IV - Manual Only 1100 Output: Void Amount 800 Estimated Blood Loss 15 Exam: General: Alert, Awake, crying because of pain and poor sleep last night. Eyes/N/T: EOMI, Head/Neck: neck supple, CV: RRR, No murmurs, Pulm: Clear b/l, no wheezing/rhonchi/rales Abd: soft, nontender, +BS x4 Ext: Left BKA. Right great amputation Neuro: Alert, no focal deficits, moves all extremities, decreased sensations bilateral lower extremity chronic Skin: warm/dry Medical - PN: Obj Da - Labs CBC & Chem 7: 12/19/18 04:50 12/19/18 04:50 Labs: Abnormal Lab Results 12/19/18 12/19/18 12/18/18 04:50 04:50 13:27 WBC 12.9 H Hgb 11.9 L MPV 6.8 L Gran % 86.2 H Lymph % (Auto) 12.2 L Gran # 11.1 H VBG Lactic Acid 2.5 H Carbon Dioxide 19 L Glucose 373 H Calcium 8.4 L Alkaline Phosphatase Globulin 3.8 H Albumin/Globulin Ratio 0.9 L 12/18/18 12/18/18 13:27 13:27 WBC 12.1 H Hgb MPV 6.9 L Gran % Lymph % (Auto) Gran # 8.3 H VBG Lactic Acid Carbon Dioxide Glucose 395 H Calcium Alkaline Phosphatase 122 H Globulin 3.9 H Albumin/Globulin Ratio Meds: Medications Acetaminophen (Tylenol) 650 mg PO Q6HP PRN PRN Reason: PAIN/FEVER > 101 Hydrocodone Bitart/Acetaminophen ([place] 10/325mg) 1 - 2 tab PO TID PRN PRN Reason: Pain Last Admin: 12/19/18 04:40 Dose: 1 tab Documented by: Amlodipine Besylate (Norvasc) 5 mg PO DAILY CHRISTINA Bisacodyl (Dulcolax) 10 mg LA Q2-3DAYS PRN PRN Reason: Constipation Cefepime HCl (Maxipime) 2 gm IV Q12H CHRISTINA Last Admin: 12/18/18 20:01 Dose: 2 gm Documented by: Cyclobenzaprine HCl (Flexeril) 10 mg PO TIDP PRN PRN Reason: Muscle Pain Daptomycin (Cubicin) 420 mg 6 mg/kg (420 mg) IV Q24H [facility] Last Admin: 12/18/18 20:01 Dose: 420 mg Documented by: Diagnostic Test (Pha) (Accu-Chek) 1 each FS [facility] Docusate Sodium (Colace) 100 mg PO BID [facility] Last Admin: 12/18/18 19:59 Dose: 100 mg Documented by: Enalaprilat (Enalaprilat 1.25mg/Ml 2ml Vial) 0 mg IV Q6 [facility] Gabapentin (Neurontin) 800 mg PO TID [facility] Last Admin: 12/18/18 22:08 Dose: 800 mg Documented by: Heparin Sodium (Porcine) (Heparin) 5,000 unit SQ Q12 [facility] Hydromorphone HCl (Dilaudid) 0.5 mg IV Q2HP PRN PRN Reason: PAIN LEVEL > 6 Last Admin: 12/19/18 05:09 Dose: 0.5 mg Documented by: Insulin Glargine (Lantus) 40 unit SQ BID [facility] Last Admin: 12/18/18 20:24 Dose: 40 units Documented by: Insulin Human Lispro (Humalog) 0 unit SQ [facility]; Protocol Last Admin: 12/18/18 20:24 Dose: 6 units Documented by: Ondansetron HCl (Zofran) 4 mg IV Q6HP PRN PRN Reason: Nausea And Vomiting Polyethylene Glycol (Miralax) 17 gm PO QDP PRN PRN Reason: Constipation Prochlorperazine (Compazine) 5 mg IV Q4HP PRN PRN Reason: Nausea And Vomiting Promethazine HCl (Phenergan) 12.5 mg PO Q6HP PRN PRN Reason: Nausea And Vomiting Senna (Senokot) 2 tab PO HSP PRN PRN Reason: Constipation Sodium Chloride (Saline Flush) 10 ml IV Q8 [facility] Last Admin: 12/19/18 04:41 Dose: 10 ml Documented by: Tramadol HCl (Ultram) 100 mg PO Q6HP PRN PRN Reason: Pain Last Admin: 12/19/18 05:58 Dose: 100 mg Documented by: Trazodone HCl (Desyrel) 100 mg PO HSP PRN PRN Reason: Insomnia Medical - PN: A/P - Time Spent With Patient Total time spent is greater than 50% in coordination of care (as documented) at patient's floor/unit and/or counseling patient: - Narrative A/P Narrative: A: *Right great toe osteomyelitis/gangrene: As complication of diabetes - S/P amputation of Right Great Toe (12/18) *Sepsis: 11/24 above -leukocytosis, lactate now wnl *DM, poorly controlled with diabetic wounds and neuropathy: *HTN: *Chronic pain: is on norco/tramadol at home *Depression *Hypothyroid: *Tobacco Abuse P: -IVFs, follow-up lactate -Podiatry for amputation today -ID following -Dapto + Cefepime after surgery -pain control -start norvasc, prn IV BP meds -lantus and SSI q4 accu -DM education -Smoking cessation counseling -pt/ot -ppx: heparin Medical - PN: Qual - VTE Deep Vein Thrombosis/Pulmonary Embolism Present on Admission: No
[2018-12-19] MEDS ORDERED: diphenhydrAMINE 25 MG CAPSULE PO PRN (08:02)
[2018-12-19] MEDS: CEFEPIME 2 GM VIAL IV SCH ×3 (09:29→22:16)
[2018-12-19] MEDS: LORazepam 2 MG/ML VIAL IV PRN (09:30)
[2018-12-19] MEDS: oxyCODONE/APAP 10/325MG TABLET PO PRN ×4 (09:30→23:55)
--- NOTE | 2018-12-19 09:34 | Orthopedic Progress Note ---
Subjective Patient information: Note initiated : 12/19/18 at 9:27 am Service Date, if different from initiated Date: [] Patient: Jeanette Gonzalez 43 y/o F admitted on 12/18/18 for Right Great Toe Pain/Infection. Chief Complaint: [Amputation great toe, right] Principal diagnosis: Osteomyelitis right great toe, now ampuation Interval history: Difficultly sleeping last night from pain to the amputation area. She says there is a needle pain in the area. She is getting more pain medication and anxiety medication at this point. No other issues other than the pain. Pertinent ROS: no fever, chills nausea or vomiting Objective Vital signs: Vital Signs Temp Pulse Pulse Resp BP BP BP 12/19/18 06:58 98.8 F 103 H 22 180/109 12/19/18 04:34 98.0 F 93 H 12 147/96 12/18/18 23:19 97.3 F 91 H 12 146/95 12/18/18 22:19 89 135/83 12/18/18 21:49 91 H 136/87 12/18/18 21:19 99 H 150/92 12/18/18 21:04 92 H 146/94 12/18/18 20:49 95 H 146/94 12/18/18 20:34 94 H 157/95 12/18/18 20:21 151/96 12/18/18 20:19 95 H 151/96 12/18/18 18:20 96.7 F L 95 H 20 160/98 12/18/18 18:05 97.1 F 94 H 14 149/93 12/18/18 17:54 93 H 16 136/85 12/18/18 17:44 93 H 20 158/91 12/18/18 17:34 86 15 122/91 12/18/18 17:24 76 8 L 131/86 12/18/18 17:19 76 8 L 123/79 12/18/18 17:14 83 8 L 123/79 12/18/18 17:09 97.1 F 90 8 L 105/58 12/18/18 16:16 110 H 20 170/100 12/18/18 16:13 101 H 20 185/108 12/18/18 14:58 101 H 20 173/111 12/18/18 14:14 105 H 20 173/102 12/18/18 12:53 97.7 F 106 H 20 177/97 Pulse Ox 12/19/18 06:58 97 12/19/18 04:34 94 12/18/18 23:19 98 12/18/18 22:19 98 12/18/18 21:49 97 12/18/18 21:19 12/18/18 21:04 98 12/18/18 20:49 98 12/18/18 20:34 97 12/18/18 20:21 12/18/18 20:19 99 12/18/18 18:20 99 12/18/18 18:05 100 12/18/18 17:54 100 12/18/18 17:44 100 12/18/18 17:34 100 12/18/18 17:24 100 12/18/18 17:19 100 12/18/18 17:14 100 12/18/18 17:09 100 12/18/18 16:16 12/18/18 16:13 98 12/18/18 14:58 98 12/18/18 14:14 98 12/18/18 12:53 98 Intake and Output 12/18/18 12/19/18 12/19/18 21:59 05:59 13:59 Intake Total 3200 400 Output Total 815 Balance 2385 400 Intake: IV 2100 Sodium Chloride 0.9% 1,000 ml @ 1000 Wide Open IV BOLUS ONE Rx#: [id number] Oral 400 IV - Manual Only 1100 Output: Void Amount 800 Estimated Blood Loss 15 Other: Weight 155 lb Intake & Output: Intake & Output 12/18/18 12/19/18 12/19/18 21:59 05:59 13:59 Intake Total 3200 400 Output Total 815 Balance 2385 400 Weight 155 lb Intake: IV 2100 Sodium Chloride 0.9% 1,000 ml @ 1000 Wide Open IV BOLUS ONE Rx#: [id number] Oral 400 IV - Manual Only 1100 Output: Void Amount 800 Estimated Blood Loss 15 Incision clean and dry: Yes (minor bleeding seen in the dressings) Dressing: Yes clean, Yes dry, Yes intact Weight bearing status: partial (heel touch acceptable) - Labs CBC & BMP: 12/19/18 04:50 12/19/18 04:50 Labs: Orthopedic Labs 12/18/18 13:27 PT 13.4 INR 1.0 12/19/18 12/18/18 04:50 13:27 Hgb 11.9 L 13.4 Hct 36.1 40.6 Assessment and Plan (1) Osteomyelitis of toe of right foot Status: Acute Priority: Medium Comment: Stabilize and antibiotics by ID. Will change dressings prior to discharge and follow a week following discharge in clinic.
[2018-12-19] MEDS: DAPTOmycin 500 MG VIAL IV SCH (10:14)
--- NOTE | 2018-12-19 11:15 | Infectious Disease Consult ---
History of Present Illness Patient information: Note initiated : 12/19/18 at 11:12 am Service Date, if different from initiated Date: [] Patient: Jeanette Gonzalez 43 y/o F admitted on 12/18/18 for Right Great Toe Pain/Infection. Chief Complaint: [] Consult date: 12/19/18 Requesting Physician: Jai Villaseñor Reason for Consult: Right great toe infection Chief complaint: My toe hurts History of present illness: 43 year old lady well-known to me from her previous visits for right foot infection. 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 coli UTI Patient reported to emergency room yesterday because of blood and pus drainage from her right great toe which started yesterday. Patient reports that for last week or so she had been having problems with an ingrown toenail. She has been reporting symptoms of toe pain, fever [as high as 101F], chills for last few days at home. She also endorsed having nausea and vomiting for the last 2 days. Due to ongoing bleeding, she subsequently went to [facility] from where she was referred to [facility] ED because of concerns for acute gangrene. In the ED, vital signs were remarkable for tachycardia with heart rate of 106, blood pressure 177/97, afebrile. Her labs were remarkable for white cell count of 12.1 k with neutrophilic predominance, venous lactate of 2.5 and x-ray of the toes consistent with rapidly progressive osteomyelitis involving tuft of distal phalanx. Blood cultures, superficial wound cultures were sent. A CT of the right foot showed osteomyelitis causing resorption of the tuft of the distal phalanx of right great toe without any evidence of abscess, proximal extension into interphalangeal joint or proximal phalanx of the great toe. Patient was seen by Dr. Green [podiatry surgery] who took her to the OR for right great toe amputation with operative cultures sent. Patient's perioperative course was fine. She has been on IV daptomycin and cefepime since yesterday. The time of visit, patient was sobbing and crying reporting that she is in pain and she is sad that she has lost her great toe and she does not want to lose her leg like she lost on the left side. She denies any fever, chills, nausea, vomiting, diarrhea. She confirmed the above history. Denies any sick contacts such as someone with skin infection. Denies any pet contact with the toe wound. When asked about vancomycin, she reports that she received it twice at [facility] and she did not had any skin or respiratory or GI symptoms at the time. But she lost consciousness and felt like she had a heart attack. She expresses concerns about receiving it again. Review of Systems All systems PM: reviewed and no additional remarkable complaints except as stated Past History Past surgical history: Left BKA in 2018 Past family history: No family history of similar illness Past social history: Lives with her son in [place] Medications and Allergies Home Medications Medication Instructions Recorded Confirmed Type blood sugar diagnostic strips See Dose Instructions .ROUTE 05/21/18 12/18/18 Hi story .MEDSUPPLY #20 each blood-glucose meter See Dose Instructions .ROUTE 05/21/18 12/18/18 History .MEDSUPPLY #1 each cyclobenzaprine 10 mg tablet 10 mg PO TID PRN 05/21/18 12/18/18 History gabapentin 800 mg tablet 800 mg PO TID tab 05/21/18 12/18/18 History lancets See Dose Instructions .ROUTE 05/21/18 12/18/18 History .MEDSUPPLY #50 each pen needle, diabetic 1 each MISCELLANE ACHS 05/21/18 12/18/18 History polyethylene glycol 3350 17 g PO QDAY PRN 05/21/18 12/18/18 History hydrocodone 10 mg-acetaminophen 1 - 2 tab PO TID PRN tab 05/22/18 12/18/18 History 325 mg tablet tramadol 50 mg tablet 100 mg PO Q6HP PRN tab 05/22/18 12/18/18 History Cephalexin [Keflex] 500 mg PO QID #30 cap 10/15/18 12/18/18 Rx Lantus Solostar 40 units SQ BID 12/18/18 12/18/18 History Ondansetron HCl [Zofran] 4 mg PO Q4-6HP PRN 12/18/18 12/18/18 History traZODone HCL [Trazodone HCl] 100 mg PO HSP PRN 12/18/18 12/18/18 History Allergies Allergy/AdvReac Type Severity Reaction Status Date / Time adhesive tape Allergy Intermediate rash and Verified 12/09/18 16:49 allergy NSAIDS (Non-Steroidal Allergy Intermediate Rash Verified 12/09/18 16:49 Anti-Inflamma vancomycin AdvReac Intermediate heart Verified 12/09/18 16:49 palpitations Amoxicillin AdvReac Mild Nausea Verified 12/09/18 16:49 escitalopram [From Lexapro] AdvReac Mild Diarrhea Verified 12/09/18 16:49 fentanyl AdvReac Mild halucinations Verified 12/09/18 16:49 and confusion fluoxetine [From Prozac] AdvReac Mild Nausea Verified 12/09/18 16:49 ketorolac [From Toradol] AdvReac Mild Vomiting Verified 12/09/18 16:49 metformin AdvReac Mild Nausea Verified 12/09/18 16:49 methocarbamol AdvReac Mild Nausea Verified 12/09/18 16:49 metoclopramide [From Reglan] AdvReac Mild Shakiness Verified 12/09/18 16:49 morphine AdvReac Mild Headache Verified 12/09/18 16:49 Paroxetine [From Paxil] AdvReac Mild Nausea Verified 12/09/18 16:49 promethazine [From Phenergan] AdvReac Mild Shakiness Verified 12/09/18 16:49 Sulfa (Sulfonamide AdvReac Mild Nausea Verified 12/09/18 16:49 Antibiotics) Physical Examination Vital signs: Temp Pulse Resp BP Pulse Ox 37.1 C 103 H 22 180/109 97 12/19/18 06:58 12/19/18 06:58 12/19/18 06:58 12/19/18 06:58 12/19/18 06:58 General appearance: no acute distress Eyes pulmonary: nonicteric ENT: oropharynx moist, other (No thrush) Auscultation: bilateral: clear Cardiovascular: regular rate and rhythm, other (No murmurs auscultated) Gastrointestinal: normoactive bowel sounds, soft, non-tender Extremities: other (Has a left BKA with the stump looking fine except for some well-healed scars. Right great toe stump wrapped in surgical dressing. Leg looks normal and similar to the other side) Results - Laboratory Findings CBC and BMP: 12/19/18 04:50 12/19/18 04:50 PT/INR, D-dimer PT 13.4 sec (11.9-14.5) 12/18/18 13:27 INR 1.0 (0.9-1.1) 12/18/18 13:27 Abnormal lab findings: Abnormal Labs 12/18/18 12/18/18 12/18/18 13:27 13:27 13:27 WBC 12.1 H Hgb MPV 6.9 L Gran % Lymph % (Auto) Gran # 8.3 H VBG Lactic Acid 2.5 H Carbon Dioxide Glucose 395 H Calcium Alkaline Phosphatase 122 H Globulin 3.9 H Albumin/Globulin Ratio 12/19/18 12/19/18 04:50 04:50 WBC 12.9 H Hgb 11.9 L MPV 6.8 L Gran % 86.2 H Lymph % (Auto) 12.2 L Gran # 11.1 H VBG Lactic Acid Carbon Dioxide 19 L Glucose 373 H Calcium 8.4 L Alkaline Phosphatase Globulin 3.8 H Albumin/Globulin Ratio 0.9 L Microbiology: Microbiology 12/18/18 18:00 Toe - First Gram Stain - Final 12/18/18 18:00 Toe - First Gram Stain - Final 12/18/18 18:00 Toe - First Wound Culture - Preliminary 12/18/18 14:16 Toe - First Gram Stain - Final 12/18/18 14:16 Toe - First Wound Culture - Preliminary Staphylococcus aureus 12/18/18 18:00 Toe - First Gram Stain - Final 12/18/18 18:00 Toe - First Gram Stain - Final 12/18/18 18:00 Toe - First Wound Culture - Preliminary Assessment and Plan - Narrative A/P Narrative: Assessment: 1. Right great toe distal phalanx osteomyelitis with superficial cultures growing staph aureus, with operative cultures pending: Postop day 1, status post right great toe amputation Given patient's prior history of left BKA, and the fact that forefoot amputations may not have good demarcation between infected and noninfected tissues due to the foot anatomy; will consider a prolonged course of antibiotics 2. No sepsis: Q-sofa score 1 3. Type 2 diabetes with high blood sugars Recommendations: Continue IV daptomycin. Would increase the dose to 8 mg/kg [560 mg which could be rounded off to 500 mg] q24 Continue IV cefepime 2 g every 8 hours Based on microbiology culture data and sensitivities, will plan to de-escalate antibiotics to the narrowest spectrum We will plan to look at the wound tomorrow I am anticipating that patient would need at least 4 weeks of antibiotics Will order a MRSA nasal swab. If wound cultures or nasal swab positive, will consider MRSA decolonization - will get records from [facility] to see what actually happened when pt recieved IV Vanc in past Will follow Maurisio Mathis MD Infectious disease
[2018-12-19 14:54] LABS: Amphetamine Screen,Urine NONE DETECTED (NONDETECTED); Benzodiazepines Screen,Urine SUSPECT POSITIVE (NONDETECTED); Cocaine Screen,Urine NONE DETECTED (NONDETECTED); Opiate Screen,Urine SUSPECT POSITIVE (NONDETECTED); Oxycodone, Urine Screen NONE DETECTED (NONDETECTED)
--- NOTE | 2018-12-19 15:56 | Discharge Summary ---
Medical - DS: Prov Patient information: Note initiated : 12/19/18 at 3:54 pm Service Date, if different from initiated Date: [] Patient: Jenaette Gonzalez 43 y/o F admitted on 12/18/18 for Right Great Toe Pain/Infection. Chief Complaint: [] Date of admission: 12/18/18 18:15 Primary care physician: Avelina Mcclellan Consults: 12/18/18 14:38 Consult to Physician [CONS] Stat Comment: Consulting Provider: Maurisio Mathis Reason For Exam: Physician to Consult 12/18/18 14:41 Consult to Physician [CONS] Stat Comment: Consulting Provider: Marcel Green Reason For Exam: Physician to Consult 12/18/18 15:03 Consult to Physician [CONS] Stat Comment: Consulting Provider: Jai Villaseñor Reason For Exam: Physician to Consult Medical - DS: Meds - Discharge Medications Active and Home Medications: Home Medications blood sugar diagnostic strips See Dose Instructions .ROUTE .MEDSUPPLY #20 each 05/21/18 [History Confirmed 12/18/18 Last Taken Unknown] blood-glucose meter See Dose Instructions .ROUTE .MEDSUPPLY #1 each 05/21/18 [History Confirmed 12/18/18 Last Taken Unknown] cyclobenzaprine 10 mg tablet 10 mg PO TID PRN 05/21/18 [History Confirmed 12/18/18 Last Taken 12/18/18 09:00] gabapentin 800 mg tablet 800 mg PO TID tab 05/21/18 [History Confirmed 12/18/18 Last Taken 12/18/18 09:00] lancets See Dose Instructions .ROUTE .MEDSUPPLY #50 each 05/21/18 [History Confirmed 12/18/18 Last Taken Unknown] pen needle, diabetic 1 each MISCELLANE ACHS 05/21/18 [History Confirmed 12/18/18 Last Taken Unknown] polyethylene glycol 3350 17 g PO QDAY PRN 05/21/18 [History Confirmed 12/18/18 Last Taken 12/17/18 21:00] hydrocodone 10 mg-acetaminophen 325 mg tablet 1 - 2 tab PO TID PRN tab 05/22/18 [History Confirmed 12/18/18 Last Taken 12/18/18 12:00] tramadol 50 mg tablet 100 mg PO Q6HP PRN tab 07/31/18 [History Confirmed 12/18/18 Last Taken 12/18/18 09:00] Cephalexin [Keflex] 500 mg PO QID #30 cap 10/15/18 [Rx Confirmed 12/18/18 Last Taken 12/18/18 09:00] Lantus Solostar 40 units SQ BID 12/18/18 [History Confirmed 12/18/18 Last Taken 12/18/18 09:00] Ondansetron HCl [Zofran] 4 mg PO Q4-6HP PRN 12/18/18 [History Confirmed 12/18/18 Last Taken 12/17/18 21:00] traZODone HCL [Trazodone HCl] 100 mg PO HSP PRN 12/18/18 [History Confirmed 12/18/18 Last Taken 12/17/18 21:00] Medical - DS: Hosp Hospital course: Mr. Gonzalez is a 43 year old F Ms. Gonzalez is a 43 year old F to the ED because of concerns regarding her right great toe. She reports that last night she took her sock off and part of her skin came off from the right toe and she began bleeding which took approximately 45 minutes for to stop. She went into [facility] who sent her into the ED because of concern for gangrenous toe. She also notes looks dusky today. She was seen in the ED about 10 days ago for UTI and possible infection of the toe given anabiotic's. Also noted in May 2018 she had a left [id number] amputation for gangrenous lower limb. She will fine yesterday morning but overnight developed fever chills and also had some nausea vomiting. In the ED at x-ray of the toes consistent with ostium myelitis. Blood sugars are 395. Dr. Green and Dr. Mathis were contacted from the ED. Patient will undergo surgical intervention shortly. 12/19 Poor sleep last night because of pain in the right foot. Otherwise no complaints. Discharge diagnosis: Right toe osteomyelitis status post amputation diabetes poorly controlled Secondary discharge diagnosis: Hypertension chronic pain depression hypothyroidism tobacco abuse - Time Spent with Patient Total time spent providing and/or coordinating discharge services: Greater than 30 minutes Medical - DS: Exam - Constitutional Vitals: Vital Signs Temp Pulse Pulse Resp BP BP BP 12/19/18 11:28 98.5 F 97 H 18 151/94 12/19/18 06:58 98.8 F 103 H 22 180/109 02/27/19 04:34 98.0 F 93 H 12 147/96 12/18/18 23:19 97.3 F 91 H 12 146/95 12/18/18 22:19 89 135/83 12/18/18 21:49 91 H 136/87 12/18/18 21:19 99 H 150/92 12/18/18 21:04 92 H 146/94 12/18/18 20:49 95 H 146/94 12/18/18 20:34 94 H 157/95 12/18/18 20:21 151/96 12/18/18 20:19 95 H 151/96 12/18/18 18:20 96.7 F L 95 H 20 160/98 12/18/18 18:05 97.1 F 94 H 14 149/93 12/18/18 17:54 93 H 16 136/85 12/18/18 17:44 93 H 20 158/91 12/18/18 17:34 86 15 122/91 12/18/18 17:24 76 8 L 131/86 12/18/18 17:19 76 8 L 123/79 12/18/18 17:14 83 8 L 123/79 12/18/18 17:09 97.1 F 90 8 L 105/58 12/18/18 16:16 110 H 20 170/100 12/18/18 16:13 101 H 20 185/108 Pulse Ox 12/19/18 11:28 95 12/19/18 06:58 97 12/19/18 04:34 94 12/18/18 23:19 98 12/18/18 22:19 98 12/18/18 21:49 97 12/18/18 21:19 12/18/18 21:04 98 12/18/18 20:49 98 12/18/18 20:34 97 12/18/18 20:21 12/18/18 20:19 99 12/18/18 18:20 99 12/18/18 18:05 100 12/18/18 17:54 100 12/18/18 17:44 100 12/18/18 17:34 100 12/18/18 17:24 100 12/18/18 17:19 100 12/18/18 17:14 100 12/18/18 17:09 100 12/18/18 16:16 12/18/18 16:13 98 Intake and Output 12/19/18 12/19/18 12/19/18 05:59 13:59 21:59 Intake Total 400 1040 Output Total 1150 Balance 400 -110 Intake: Oral 400 1040 Output: Void Amount 850 Emesis 300 Other: Meal Lunch Percent of Meal Consumed 75% Feeding Ability Independent Urine Appearance Cloudy Urine Color Dark Yellow Urine Odor Normal Weight 70.307 kg Medical - DS: Data Labs on day of discharge: Labs from last 24 hours 12/19/18 12/19/18 12/19/18 14:26 14:05 04:50 WBC RBC Hgb Hct MCV MCH MCHC RDW Plt Count MPV Gran % Lymph % (Auto) [place] % (Auto) Eos % (Auto) Baso % (Auto) Gran # Lymph # (Auto) [place] # (Auto) Eos # (Auto) Baso # (Auto) VBG Lactic Acid Sodium 135 Potassium 4.3 Chloride 103 Carbon Dioxide 19 L Anion Gap 13.0 BUN 15 Creatinine 0.9 GFR Calculation 78 Glucose 373 H Uric Acid 6.0 Calcium 8.4 L Phosphorus 3.1 Magnesium 1.7 Total Bilirubin 0.2 Direct Bilirubin < 0.2 GGT 33 AST 18 ALT 16 Alkaline Phosphatase 104 Lactate Dehydrogenase 230 Total Protein 7.2 Albumin 3.4 Globulin 3.8 H Albumin/Globulin Ratio 0.9 L Triglycerides 146 Procalcitonin Urine Opiates Screen Suspect positive A Ur Oxycodone Screen None detected Urine Methadone Screen None detected Ur Barbiturates Screen None detected Ur Phencyclidine Scrn None detected Ur Amphetamines Screen None detected U Benzodiazepines Scrn Suspect positive A Urine Cocaine Screen None detected U Marijuana (THC) Screen None detected Ethyl Alcohol < 0.010 12/19/18 12/18/18 12/18/18 04:50 18:50 13:30 WBC 12.9 H RBC 4.01 Hgb 11.9 L Hct 36.1 MCV 90.0 MCH 29.7 MCHC 32.9 RDW 13.9 Plt Count 347 MPV 6.8 L Gran % 86.2 H Lymph % (Auto) 12.2 L [place] % (Auto) 1.3 Eos % (Auto) 0 Baso % (Auto) 0.3 Gran # 11.1 H Lymph # (Auto) 1.6 [place] # (Auto) 0.2 Eos # (Auto) 0 Baso # (Auto) 0 VBG Lactic Acid 1.4 Sodium Potassium Chloride Carbon Dioxide Anion Gap BUN Creatinine GFR Calculation Glucose Uric Acid Calcium Phosphorus Magnesium Total Bilirubin Direct Bilirubin GGT AST ALT Alkaline Phosphatase Lactate Dehydrogenase Total Protein Albumin Globulin Albumin/Globulin Ratio Triglycerides Procalcitonin < 0.05 Urine Opiates Screen Ur Oxycodone Screen Urine Methadone Screen Ur Barbiturates Screen Ur Phencyclidine Scrn Ur Amphetamines Screen U Benzodiazepines Scrn Urine Cocaine Screen U Marijuana (THC) Screen Ethyl Alcohol Preliminary micro results at discharge 12/18/18 18:00 Anaerobic Culture - Preliminary Toe - First Wound Culture - Preliminary 12/18/18 18:00 Anaerobic Culture - Preliminary Toe - First Wound Culture - Preliminary 12/18/18 14:16 Wound Culture - Preliminary Toe - First Staphylococcus aureus Medical - DS: A/P - Patient/Caregiver Discharge Instructions Activity: increase activity as tolerated Diet: Consistent Carbohydrate - Follow up Plan Follow up with: Maurisio Mathis MD [Physician] - Avelina Mcclellan MD [Primary Care Provider] - Marcel Green DPM [Physician] - Prognosis: Fair Rehab Potential: Fair Medical - DS: Qual - VTE Deep Vein Thrombosis/Pulmonary Embolism Present on Admission: No
[2018-12-20] MEDS: HYDROmorphone 2 MG/ML VIAL IV PRN ×7 (02:07→22:50)
[2018-12-20] MEDS: INSULIN LISPRO 1 UNIT/0.01 ML UNIT SQ SCH ×5 (03:27→21:41)
[2018-12-20 05:57] LABS: Basophils # (Auto) 0 K/mcL (0.0-0.3); Basophils % (Auto) 0.3 % (0.0-2.0); Eosinophils # (Auto) 0.3 K/mcL (0.0-0.7); Eosinophils % (Auto) 2.9 % (0.0-7.0); Granulocytes % (Auto) 68.2 % (38.0-78.0); Lymphocytes # (Auto) 2.9 K/mcL (1.5-4.8); Lymphocytes % (Auto) 24.4 % (15.5-49.0); Mean Cell Volume 89.5 fL (80.0-100.0); Mean Corpuscular HGB Conc 33.5 g/dL (31.0-36.0); Monocytes # (Auto) 0.5 K/mcL (0.1-0.9); Monocytes % (Auto) 4.2 % (1.0-12.0); Platelet Count 302 K/mcL (140-440); RBC 3.66 M/mcL (4.00-5.20); Red Cell Distribution Width 13.8 % (11.5-14.5)
[2018-12-20] MEDS: CEFEPIME 2 GM VIAL IV SCH ×2 (06:17→14:34)
[2018-12-20] MEDS: 0.9 % SODIUM CHLORIDE 10 ML SYRINGE IV SCH ×3 (06:17→22:50)
[2018-12-20 06:25] LABS: Blood Urea Nitrogen 19 mg/dl (6-20)
[2018-12-20] MEDS: ENALAPRIL IV SCH ×3 (06:25→17:07)
--- NOTE | 2018-12-20 07:45 | Internal Med Progress Note ---
Medical - PN: Subj Patient information: Note initiated : 12/20/18 at 7:41 am Service Date, if different from initiated Date: [] Patient: Jeanette Gonzalez a 43 y/o F admitted on 12/18/18 for Right Great Toe Pain/Infection. Chief Complaint: [] Interval history: Ms. Gonzalez is a 43 year old F to the ED because of concerns regarding her right great toe. She reports that last night she took her sock off and part of her skin came off from the right toe and she began bleeding which took approximately 45 minutes for to stop. She went into [facility] who sent her into the ED because of concern for gangrenous toe. She also notes looks dusky today. She was seen in the ED about 10 days ago for UTI and possible infection of the toe given anabiotic's. Also noted in May 2018 she had a left [id number] amputation for gangrenous lower limb. She will fine yesterday morning but overnight developed fever chills and also had some nausea vomiting. In the ED at x-ray of the toes consistent with ostium myelitis. Blood sugars are 395. Dr. Green and Dr. Mathis were contacted from the ED. Patient will undergo surgical intervention shortly. 12/19 Poor sleep last night because of pain in the right foot. Otherwise no complaints. 12/20 Slept better. No overnight events. No new complaints. Review of Systems: denies headache/fever/chills/nausea/vomiting/chest or abdominal pain/cough/dyspnea/diarrhea. Otherwise see above. - Constitutional Vitals: Vital Signs Temp Pulse Resp BP Pulse Ox 97.9 F 87 20 148/88 98 12/20/18 07:01 12/20/18 07:01 12/20/18 07:01 12/20/18 07:01 12/20/18 07:01 Period Temp Pulse Resp BP Sys/Santiago Pulse Ox Last 24 Hr 97.4 F-98.5 F 87-100 10-20 120-151/79-94 95-99 Intake and Output 12/19/18 12/20/18 12/20/18 21:59 05:59 13:59 Intake Total 1460 270 Output Total 1325 Balance 135 270 Weight 69.4 kg Intake & Output: Intake & Output 02/27/19 02/28/19 02/28/19 21:59 05:59 13:59 Intake Total 1460 270 Output Total 1325 Balance 135 270 Weight 69.4 kg Intake: Oral 1460 270 Output: Void Amount 1025 Emesis 300 Other: Meal Dinner box cereal Percent of Meal Consumed 100% 100% Feeding Ability Independent Independent Urine Appearance Clear Urine Color Bright Yellow Urine Odor Normal Exam: General: Alert, Awake, no acute distress Eyes/N/T: EOMI, Head/Neck: neck supple, CV: RRR, No murmurs, Pulm: Clear b/l, no wheezing/rhonchi/rales Abd: soft, nontender, +BS x4 Ext: Left BKA. Right great amputation Neuro: Alert, no focal deficits, moves all extremities, decreased sensations bilateral lower extremity chronic Skin: warm/dry Medical - PN: Obj Da - Labs CBC & Chem 7: 12/20/18 04:33 12/20/18 04:32 Labs: Abnormal Lab Results 12/20/18 12/20/18 12/19/18 04:33 04:32 14:05 WBC 11.8 H RBC 3.66 L Hgb 11.0 L Hct 32.7 L MPV 7.0 L Gran % Lymph % (Auto) Gran # VBG Lactic Acid Carbon Dioxide Creatinine 1.2 H Glucose 189 H Calcium 8.1 L Alkaline Phosphatase Globulin Albumin/Globulin Ratio Urine Opiates Screen Suspect positive A U Benzodiazepines Scrn Suspect positive A 12/19/18 12/19/18 12/18/18 04:50 04:50 13:27 WBC 12.9 H RBC Hgb 11.9 L Hct MPV 6.8 L Gran % 86.2 H Lymph % (Auto) 12.2 L Gran # 11.1 H VBG Lactic Acid 2.5 H Carbon Dioxide 19 L Creatinine Glucose 373 H Calcium 8.4 L Alkaline Phosphatase Globulin 3.8 H Albumin/Globulin Ratio 0.9 L Urine Opiates Screen U Benzodiazepines Scrn 12/18/18 12/18/18 13:27 13:27 WBC 12.1 H RBC Hgb Hct MPV 6.9 L Gran % Lymph % (Auto) Gran # 8.3 H VBG Lactic Acid Carbon Dioxide Creatinine Glucose 395 H Calcium Alkaline Phosphatase 122 H Globulin 3.9 H Albumin/Globulin Ratio Urine Opiates Screen U Benzodiazepines Scrn Meds: Medications Acetaminophen (Tylenol) 650 mg PO Q6HP PRN PRN Reason: PAIN/FEVER > 101 Amlodipine Besylate (Norvasc) 5 mg PO DAILY [facility] Last Admin: 12/19/18 07:50 Dose: 5 mg Documented by: Bisacodyl (Dulcolax) 10 mg CO Q2-3DAYS PRN PRN Reason: Constipation Cefepime HCl (Maxipime) 2 gm IV Q8H [facility] Last Admin: 12/20/18 06:17 Dose: 2 gm Documented by: Cyclobenzaprine HCl (Flexeril) 10 mg PO TIDP PRN PRN Reason: Muscle Pain Last Admin: 12/19/18 11:59 Dose: 10 mg Documented by: Daptomycin (Cubicin) 500 mg IV Q24H [facility] Diagnostic Test (Pha) (Accu-Chek) 1 each FS Q3H [facility] Last Admin: 12/20/18 06:18 Dose: 1 each Documented by: Diphenhydramine HCl (Benadryl) 25 mg PO Q4-6HP PRN PRN Reason: Allergic Symptoms Docusate Sodium (Colace) 100 mg PO BID [facility] Last Admin: 12/19/18 21:00 Dose: 100 mg Documented by: Enalaprilat (Enalaprilat 1.25mg/Ml 2ml Vial) 0 mg IV Q6 [facility] Last Admin: 12/20/18 06:25 Dose: Not Given Documented by: Gabapentin (Neurontin) 800 mg PO TID [facility] Last Admin: 12/19/18 21:00 Dose: 800 mg Documented by: Heparin Sodium (Porcine) (Heparin) 5,000 unit SQ Q12 [facility] Last Admin: 12/19/18 20:58 Dose: 5,000 unit Documented by: Hydromorphone HCl (Dilaudid) 0.5 mg IV Q2HP PRN PRN Reason: PAIN LEVEL > 6 Last Admin: 12/20/18 06:16 Dose: 0.5 mg Documented by: Insulin Glargine (Lantus) 40 unit SQ BID [facility] Last Admin: 12/19/18 20:57 Dose: 40 units Documented by: Insulin Human Lispro (Humalog) 0 unit SQ Q3H [facility]; Protocol Last Admin: 12/20/18 07:09 Dose: 2 units Documented by: Lorazepam (Ativan) 0.5 mg IV Q6HP PRN PRN Reason: ANXIETY/SEDATION Last Admin: 12/19/18 09:30 Dose: 0.5 mg Documented by: Ondansetron HCl (Zofran) 4 mg IV Q6HP PRN PRN Reason: Nausea And Vomiting Oxycodone/Acetaminophen (Percocet 10-325mg) 1 tab PO Q4HP PRN PRN Reason: PAIN LEVEL 3-6 Last Admin: 12/19/18 23:55 Dose: 1 tab Documented by: Polyethylene Glycol (Miralax) 17 gm PO QDP PRN PRN Reason: Constipation Prochlorperazine (Compazine) 5 mg IV Q4HP PRN PRN Reason: Nausea And Vomiting Promethazine HCl (Phenergan) 12.5 mg PO Q6HP PRN PRN Reason: Nausea And Vomiting Senna (Senokot) 2 tab PO HSP PRN PRN Reason: Constipation Sodium Chloride (Saline Flush) 10 ml IV Q8 [facility] Last Admin: 12/20/18 06:17 Dose: 10 ml Documented by: Tramadol HCl (Ultram) 100 mg PO Q6HP PRN PRN Reason: Pain Last Admin: 12/19/18 11:59 Dose: 100 mg Documented by: Trazodone HCl (Desyrel) 100 mg PO HSP PRN PRN Reason: Insomnia Medical - PN: A/P - Time Spent With Patient Total time spent is greater than 50% in coordination of care (as documented) at patient's floor/unit and/or counseling patient: - Narrative A/P Narrative: A: *Right great toe osteomyelitis/cellulitis: As complication of diabetes - S/P amputation of Right Great Toe (12/18) *Bacteremia, GPC 1of2 draws *Sepsis (based on SIRS with source including elevated lactate as per CMS, although qsofa low): 2/ above -resolving *DM, poorly controlled with diabetic wounds and neuropathy: *HTN: *Chronic pain: is on norco/tramadol at home *Depression *Hypothyroid: *Tobacco Abuse P: -repeat BC's, -Podiatry following -ID following -Dapto + Cefepime -pain control -started norvasc, prn IV BP meds -lantus and SSI q4 accu -DM education -Smoking cessation counseling -pt/ot -ppx: heparin Medical - PN: Qual - VTE Deep Vein Thrombosis/Pulmonary Embolism Present on Admission: No
[2018-12-20] MEDS: amLODIPine 5 MG TABLET PO SCH (08:21)
[2018-12-20] MEDS: oxyCODONE/APAP 10/325MG TABLET PO PRN ×3 (08:21→21:42)
[2018-12-20] MEDS: CYCLOBENZAPRINE 10 MG TABLET PO PRN ×3 (08:21→21:43)
[2018-12-20] MEDS: DOCUSATE SODIUM 100 MG CAPSULE PO SCH ×2 (08:21→21:42)
[2018-12-20] MEDS: GABAPENTIN 400 MG CAPSULE PO SCH ×3 (08:21→21:42)
[2018-12-20] MEDS: HEPARIN 5,000 UNIT/ML VIAL SQ SCH ×2 (08:22→21:40)
[2018-12-20] MEDS: INSULIN GLARGINE, HUMAN 1 UNIT/0.01 ML SQ SCH ×2 (08:56→21:42)
[2018-12-20] MEDS ORDERED: DAPTOmycin 500 MG VIAL IV SCH (10:00)
--- NOTE | 2018-12-20 19:19 | Infectious Disease Prog Note ---
Subjective Patient information: Note initiated : 12/20/18 at 7:16 pm Service Date, if different from initiated Date: [] Patient: Jeanette Gonzalez 43 y/o F admitted on 12/18/18 for Right Great Toe Pain/Infection. Chief Complaint: [] Principal diagnosis: Osteomyelitis right great toe, now ampuation Interval history: doing well. reports pain, controlled with meds. denied any fever, chills, n/v/ diarrhea. Objective Objective Narrative: ao x 3, in nad chest cta s1 s2 normal rt great toe stump: some serosanguineous drainage, tender, well approximated s utures, warm to touch - Vital Signs Vital signs: Vital Signs Temp Pulse Resp BP Pulse Ox 12/20/18 16:00 36.8 C 89 18 138/80 96 12/20/18 11:29 36.7 C 94 H 18 140/82 96 12/20/18 07:01 36.6 C 87 20 148/88 98 12/20/18 03:25 36.5 C 92 H 10 L 127/83 99 12/19/18 23:55 36.5 C 88 12 121/79 98 Intake and Output 12/20/18 12/20/18 12/20/18 05:59 13:59 21:59 Intake Total 270 240 360 Output Total 700 Balance 270 240 -340 Intake: Oral 270 240 360 Output: Emesis 700 Other: Meal box cereal Breakfast Lunch Percent of Meal Consumed 100% 100% 100% Feeding Ability Independent Independent Weight 69.4 kg Patient Weight 12/21/18 05:59 Weight 69.4 kg Intake & Output: Intake & Output 12/20/18 12/20/18 12/20/18 05:59 13:59 21:59 Intake Total 270 240 360 Output Total 700 Balance 270 240 -340 Weight 69.4 kg Intake: Oral 270 240 360 Output: Emesis 700 Other: Meal box cereal Breakfast Lunch Percent of Meal Consumed 100% 100% 100% Feeding Ability Independent Independent - Lab 12/20/18 04:33 12/20/18 04:32 Most recent lab results Calcium 8.1 mg/dl (8.6-10.4) L 12/20/18 04:32 Phosphorus 3.1 mg/dL (2.7-4.5) 12/19/18 04:50 Magnesium 1.7 mg/dL (1.6-2.5) 12/19/18 04:50 Microbiology 12/18/18 14:59 Blood Blood Culture - Preliminary 12/18/18 18:00 Toe - First Gram Stain - Final 12/18/18 18:00 Toe - First Anaerobic Culture - Preliminary 12/18/18 18:00 Toe - First Gram Stain - Final 12/18/18 18:00 Toe - First Wound Culture - Final 12/18/18 18:00 Toe - First Gram Stain - Final 12/18/18 18:00 Toe - First Anaerobic Culture - Preliminary 12/18/18 18:00 Toe - First Gram Stain - Final 12/18/18 18:00 Toe - First Wound Culture - Preliminary Staphylococcus aureus 12/18/18 14:16 Toe - First Gram Stain - Final 12/18/18 14:16 Toe - First Wound Culture - Preliminary Staphylococcus aureus 12/18/18 14:53 Blood Blood Culture - Preliminary Gram positive cocci 12/19/18 10:20 Nose - Both Right and Left MRSA (PCR) - Final Medications Active Medications: Acetaminophen (Tylenol) 650 mg PO Q6HP PRN PRN Reason: PAIN/FEVER > 101 Amlodipine Besylate (Norvasc) 5 mg PO DAILY [facility] Last Admin: 12/20/18 08:21 Dose: 5 mg Documented by: Admin: 12/19/18 07:50 Dose: 5 mg Documented by: MGARRED Bisacodyl (Dulcolax) 10 mg AL Q2-3DAYS PRN PRN Reason: Constipation Cyclobenzaprine HCl (Flexeril) 10 mg PO TIDP PRN PRN Reason: Muscle Pain Last Admin: 12/20/18 14:48 Dose: 10 mg Documented by: Admin: 12/20/18 08:21 Dose: 10 mg Documented by: Admin: 12/19/18 11:59 Dose: 10 mg Documented by: Admin: 12/19/18 07:50 Dose: 10 mg Documented by: MGARRSABI Daptomycin (Cubicin) 500 mg IV Q24H [facility] Last Admin: 12/20/18 10:35 Dose: 500 mg Documented by: MGARRED Diagnostic Test (Pha) (Accu-Chek) 1 each FS ACHS [facility] Last Admin: 12/20/18 16:56 Dose: 1 each Documented by: Admin: 12/20/18 11:42 Dose: 1 each Documented by: ROI Diphenhydramine HCl (Benadryl) 25 mg PO Q4-6HP PRN PRN Reason: Allergic Symptoms Docusate Sodium (Colace) 100 mg PO BID [facility] Admin: 12/20/18 08:21 Dose: 100 mg Documented by: Admin: 12/19/18 21:00 Dose: 100 mg Documented by: Admin: 12/19/18 07:50 Dose: 100 mg Documented by: Admin: 12/18/18 19:59 Dose: 100 mg Documented by: ERIKRT Enalaprilat (Enalaprilat 1.25mg/Ml 2ml Vial) 0 mg IV Q6 [facility] Admin: 12/20/18 17:07 Dose: Not Given Documented by: MIGUELITO Non-Admin Reason: Vital Signs outside parameters Admin: 12/20/18 11:42 Dose: Not Given Documented by: ORI Non-Admin Reason: No Coverage Needed Admin: 12/20/18 06:25 Dose: Not Given Documented by: ORI Non-Admin Reason: No Coverage Needed Admin: 12/19/18 23:50 Dose: Not Given Documented by: DARBY Non-Admin Reason: B/P 121/79 Admin: 12/19/18 17:35 Dose: Not Given Documented by: ORI Non-Admin Reason: No Coverage Needed Admin: 12/19/18 11:59 Dose: 0.625 mg Documented by: Admin: 12/19/18 07:49 Dose: 1.25 mg Documented by: ORI Gabapentin (Neurontin) 800 mg PO TID [facility] Admin: 12/20/18 14:33 Dose: 800 mg Documented by: Admin: 12/20/18 08:21 Dose: 800 mg Documented by: Admin: 12/19/18 21:00 Dose: 800 mg Documented by: Admin: 12/19/18 15:28 Dose: 800 mg Documented by: Admin: 12/19/18 07:50 Dose: 800 mg Documented by: Admin: 12/18/18 22:08 Dose: 800 mg Documented by: ERIKRT Heparin Sodium (Porcine) (Heparin) 5,000 unit SQ Q12 [facility] Last Admin: 12/20/18 08:22 Dose: 5,000 unit Documented by: Admin: 12/19/18 20:58 Dose: 5,000 unit Documented by: Admin: 12/19/18 07:49 Dose: 5,000 unit Documented by: ORI Hydromorphone HCl (Dilaudid) 0.5 mg IV Q2HP PRN PRN Reason: PAIN LEVEL > 6 Last Admin: 12/20/18 15:30 Dose: 0.5 mg Documented by: Admin: 12/20/18 11:43 Dose: 0.5 mg Documented by: Admin: 12/20/18 08:57 Dose: 0.5 mg Documented by: Admin: 12/20/18 06:16 Dose: 0.5 mg Documented by: Admin: 12/20/18 02:07 Dose: 0.5 mg Documented by: Admin: 12/19/18 20:59 Dose: 0.5 mg Documented by: Admin: 12/19/18 17:32 Dose: 0.5 mg Documented by: Admin: 12/19/18 12:32 Dose: 0.5 mg Documented by: Admin: 12/19/18 10:15 Dose: 0.5 mg Documented by: Admin: 12/19/18 07:49 Dose: 0.5 mg Documented by: Admin: 12/19/18 05:09 Dose: 0.5 mg Documented by: Admin: 12/19/18 01:17 Dose: 0.5 units Documented by: Admin: 12/18/18 22:09 Dose: 0.5 units Documented by: LORIOSSERT Insulin Glargine (Lantus) 40 unit SQ BID [facility] Last Admin: 12/20/18 08:56 Dose: 40 units Documented by: Admin: 12/19/18 20:57 Dose: 40 units Documented by: Admin: 12/19/18 07:48 Dose: 40 units Documented by: Admin: 12/18/18 20:24 Dose: 40 units Documented by: LORIOSSERT Insulin Human Lispro (Humalog) 0 unit SQ ACHS [facility]; Protocol Last Admin: 12/20/18 17:02 Dose: 4 unit Documented by: Admin: 12/20/18 11:41 Dose: 2 unit Documented by: MGARRSABI Lorazepam (Ativan) 0.5 mg IV Q6HP PRN PRN Reason: ANXIETY/SEDATION Last Admin: 12/19/18 09:30 Dose: 0.5 mg Documented by: MGARRED Ondansetron HCl (Zofran) 4 mg IV Q6HP PRN PRN Reason: Nausea And Vomiting Last Admin: 12/20/18 15:30 Dose: 4 mg Documented by: MIGUELITO Oxycodone/Acetaminophen (Percocet 10-325mg) 1 tab PO Q4HP PRN PRN Reason: PAIN LEVEL 3-6 Last Admin: 12/20/18 14:48 Dose: 1 tab Documented by: Admin: 12/20/18 08:21 Dose: 1 tab Documented by: Admin: 12/19/18 23:55 Dose: 1 tab Documented by: Admin: 12/19/18 19:17 Dose: 1 tab Documented by: Admin: 12/19/18 15:28 Dose: 1 tab Documented by: Admin: 12/19/18 09:30 Dose: 1 tab Documented by: MGARRSABI Polyethylene Glycol (Miralax) 17 gm PO QDP PRN PRN Reason: Constipation Prochlorperazine (Compazine) 5 mg IV Q4HP PRN PRN Reason: Nausea And Vomiting Promethazine HCl (Phenergan) 12.5 mg PO Q6HP PRN PRN Reason: Nausea And Vomiting Senna (Senokot) 2 tab PO HSP PRN PRN Reason: Constipation Sodium Chloride (Saline Flush) 10 ml IV Q8 [facility] Last Admin: 12/20/18 14:34 Dose: 10 ml Documented by: Admin: 12/20/18 06:17 Dose: 10 ml Documented by: [email or web address] Admin: 12/19/18 21:00 Dose: 10 ml Documented by: Admin: 12/19/18 13:40 Dose: 10 ml Documented by: Admin: 12/19/18 04:41 Dose: 10 ml Documented by: Admin: 12/18/18 20:24 Dose: 10 ml Documented by: LORIOSSERT Tramadol HCl (Ultram) 100 mg PO Q6HP PRN PRN Reason: Pain Last Admin: 12/19/18 11:59 Dose: 100 mg Documented by: Admin: 12/19/18 05:58 Dose: 100 mg Documented by: Admin: 12/18/18 23:54 Dose: 100 mg Documented by: KBOSSERT Trazodone HCl (Desyrel) 100 mg PO HSP PRN PRN Reason: Insomnia Assessment and Plan - Narrative A/P Narrative: Assessment: 1. Right great toe distal phalanx osteomyelitis with superficial and operative cultures growing staph aureus, with sensi pending: Postop day 2, status post right great toe amputation Given patient's prior history of left BKA, and the fact that forefoot amputations may not have good demarcation between infected and noninfected tissues due to the foot anatomy; will consider a prolonged course of antibiotics - overall getting better 2. No sepsis: Q-sofa score 1 3. Type 2 diabetes Recommendations: Continue IV daptomycin at 8mg/kg [560 mg which could be rounded off to 500 mg] q24 Stop IV cefepime Based on microbiology culture data and sensitivities, will plan to de-escalate oral antibiotics to the narrowest spectrum Anticipate 4 weeks of antibiotics If wound cultures positive for MRSA, will consider MRSA decolonization Will follow Maurisio Mathis MD Infectious disease
[2018-12-20] MEDS: LORazepam 2 MG/ML VIAL IV PRN (19:55)
[2018-12-21] MEDS: ENALAPRIL IV SCH ×3 (00:42→12:29)
[2018-12-21] MEDS: HYDROmorphone 2 MG/ML VIAL IV PRN ×6 (01:12→15:09)
[2018-12-21] MEDS: LORazepam 2 MG/ML VIAL IV PRN (03:40)
[2018-12-21 05:46] LABS: Basophils # (Auto) 0 K/mcL (0.0-0.3); Basophils % (Auto) 0.4 % (0.0-2.0); Eosinophils # (Auto) 0.5 K/mcL (0.0-0.7); Eosinophils % (Auto) 4.3 % (0.0-7.0); Granulocytes % (Auto) 68.9 % (38.0-78.0); Lymphocytes # (Auto) 2.4 K/mcL (1.5-4.8); Lymphocytes % (Auto) 21.2 % (15.5-49.0); Mean Cell Volume 90.1 fL (80.0-100.0); Mean Corpuscular HGB Conc 33.2 g/dL (31.0-36.0); Monocytes # (Auto) 0.6 K/mcL (0.1-0.9); Monocytes % (Auto) 5.2 % (1.0-12.0); Platelet Count 314 K/mcL (140-440); RBC 3.54 M/mcL (4.00-5.20); Red Cell Distribution Width 13.4 % (11.5-14.5)
[2018-12-21] MEDS: 0.9 % SODIUM CHLORIDE 10 ML SYRINGE IV SCH ×2 (06:06→15:10)
[2018-12-21 06:08] LABS: Blood Urea Nitrogen 12 mg/dl (6-20)
[2018-12-21] MEDS: oxyCODONE/APAP 10/325MG TABLET PO PRN ×2 (07:16→11:34)
--- NOTE | 2018-12-21 08:08 | Internal Med Progress Note ---
Medical - PN: Subj Patient information: Note initiated : 12/21/18 at 8:05 am Service Date, if different from initiated Date: [] Patient: Jeanette Gonzalez a 43 y/o F admitted on 12/18/18 for Right Great Toe Pain/Infection. Chief Complaint: [] Interval history: Ms. Gonzalez is a 43 year old F to the ED because of concerns regarding her right great toe. She reports that last night she took her sock off and part of her skin came off from the right toe and she began bleeding which took approximately 45 minutes for to stop. She went into [facility] who sent her into the ED because of concern for gangrenous toe. She also notes looks dusky today. She was seen in the ED about 10 days ago for UTI and possible infection of the toe given anabiotic's. Also noted in May 2018 she had a left [id number] amputation for gangrenous lower limb. She will fine yesterday morning but overnight developed fever chills and also had some nausea vomiting. In the ED at x-ray of the toes consistent with ostium myelitis. Blood sugars are 395. Dr. Green and Dr. Mathis were contacted from the ED. Patient will undergo surgical intervention shortly. 12/19 Poor sleep last night because of pain in the right foot. Otherwise no complaints. 12/20 Slept better. No overnight events. No new complaints. 12/21 At some nausea after lunch yesterday but none today. Slept okay. Gram-positive cocci in 1 of 2 blood draws. Repeat blood cultures drawn yesterday and awaiting final results. Review of Systems: denies headache/fever/chills/nausea/vomiting/chest pain/cough/dyspnea/diarrhea. Otherwise see above. - Constitutional Vitals: Vital Signs Temp Pulse Resp BP Pulse Ox 98.7 F 90 18 128/79 98 12/21/18 06:49 12/21/18 04:00 12/21/18 06:49 12/21/18 06:49 12/21/18 06:49 Period Temp Pulse Resp BP Sys/Santiago Pulse Ox Last 24 Hr 98 F-98.9 F 89-102 16-20 128-161/79-98 96-98 Intake and Output 12/20/18 12/21/18 12/21/18 21:59 05:59 13:59 Intake Total 360 700 Output Total 700 Balance -340 700 Weight 69.173 kg Intake & Output: Intake & Output 12/20/18 12/21/18 12/21/18 21:59 05:59 13:59 Intake Total 360 700 Output Total 700 Balance -340 700 Weight 69.173 kg Intake: Oral 360 700 Output: Emesis 700 Other: Meal Lunch Percent of Meal Consumed 100% Exam: General: Alert, Awake, no acute distress Eyes/N/T: EOMI, Head/Neck: neck supple, CV: RRR, No murmurs, Pulm: Clear b/l, no wheezing/rhonchi/rales Abd: soft, nontender, +BS x4 Ext: Left BKA. Right great amputation Neuro: Alert, no focal deficits, moves all extremities, decreased sensations bilateral lower extremity chronic Skin: warm/dry Medical - PN: Obj Da - Labs CBC & Chem 7: 12/21/18 04:38 12/21/18 04:38 Labs: Abnormal Lab Results 12/21/18 12/21/18 12/20/18 04:38 04:38 04:33 WBC 11.4 H 11.8 H RBC 3.54 L 3.66 L Hgb 10.6 L 11.0 L Hct 31.9 L 32.7 L MPV 7.0 L 7.0 L Gran % Lymph % (Auto) Gran # VBG Lactic Acid Carbon Dioxide Creatinine Glucose 196 H Calcium Alkaline Phosphatase Globulin Albumin/Globulin Ratio Urine Opiates Screen U Benzodiazepines Scrn 12/20/18 12/19/18 12/19/18 04:32 14:05 04:50 WBC RBC Hgb Hct MPV Gran % Lymph % (Auto) Gran # VBG Lactic Acid Carbon Dioxide 19 L Creatinine 1.2 H Glucose 189 H 373 H Calcium 8.1 L 8.4 L Alkaline Phosphatase Globulin 3.8 H Albumin/Globulin Ratio 0.9 L Urine Opiates Screen Suspect positive A U Benzodiazepines Scrn Suspect positive A 12/19/18 12/18/18 12/18/18 04:50 13:27 13:27 WBC 12.9 H RBC Hgb 11.9 L Hct MPV 6.8 L Gran % 86.2 H Lymph % (Auto) 12.2 L Gran # 11.1 H VBG Lactic Acid 2.5 H Carbon Dioxide Creatinine Glucose 395 H Calcium Alkaline Phosphatase 122 H Globulin 3.9 H Albumin/Globulin Ratio Urine Opiates Screen U Benzodiazepines Scrn 12/18/18 13:27 WBC 12.1 H RBC Hgb Hct MPV 6.9 L Gran % Lymph % (Auto) Gran # 8.3 H VBG Lactic Acid Carbon Dioxide Creatinine Glucose Calcium Alkaline Phosphatase Globulin Albumin/Globulin Ratio Urine Opiates Screen U Benzodiazepines Scrn Meds: Medications Acetaminophen (Tylenol) 650 mg PO Q6HP PRN PRN Reason: PAIN/FEVER > 101 Amlodipine Besylate (Norvasc) 5 mg PO DAILY [facility] Last Admin: 12/20/18 08:21 Dose: 5 mg Documented by: Bisacodyl (Dulcolax) [address] Q2-3DAYS PRN PRN Reason: Constipation Cyclobenzaprine HCl (Flexeril) 10 mg PO TIDP PRN PRN Reason: Muscle Pain Last Admin: 12/20/18 21:43 Dose: 10 mg Documented by: Daptomycin (Cubicin) 500 mg IV Q24H [facility] Last Admin: 12/20/18 10:35 Dose: 500 mg Documented by: Diagnostic Test (Pha) (Accu-Chek) 1 each FS ACHS [facility] Last Admin: 12/21/18 07:23 Dose: 1 each Documented by: Diphenhydramine HCl (Benadryl) 25 mg PO Q4-6HP PRN PRN Reason: Allergic Symptoms Docusate Sodium (Colace) 100 mg PO BID [facility] Last Admin: 12/20/18 21:42 Dose: 100 mg Documented by: Enalaprilat (Enalaprilat 1.25mg/Ml 2ml Vial) 0 mg IV Q6 [facility] Last Admin: 12/21/18 06:04 Dose: 0.65 mg Documented by: Gabapentin (Neurontin) 800 mg PO TID [facility] Last Admin: 12/20/18 21:42 Dose: 800 mg Documented by: Heparin Sodium (Porcine) (Heparin) 5,000 unit SQ Q12 [facility] Last Admin: 12/20/18 21:40 Dose: 5,000 unit Documented by: Hydromorphone HCl (Dilaudid) 0.5 mg IV Q2HP PRN PRN Reason: PAIN LEVEL > 6 Last Admin: 12/21/18 06:03 Dose: 0.5 mg Documented by: Insulin Glargine (Lantus) 40 unit SQ BID [facility] Last Admin: 12/20/18 21:42 Dose: 40 units Documented by: Insulin Human Lispro (Humalog) 0 unit SQ ACHS [facility]; Protocol Last Admin: 12/20/18 21:41 Dose: 6 unit Documented by: Lorazepam (Ativan) 0.5 mg IV Q6HP PRN PRN Reason: ANXIETY/SEDATION Last Admin: 12/21/18 03:40 Dose: 0.5 mg Documented by: Ondansetron HCl (Zofran) 4 mg IV Q6HP PRN PRN Reason: Nausea And Vomiting Last Admin: 12/20/18 15:30 Dose: 4 mg Documented by: Oxycodone/Acetaminophen (Percocet 10-325mg) 1 tab PO Q4HP PRN PRN Reason: PAIN LEVEL 3-6 Last Admin: 12/21/18 07:16 Dose: 1 tab Documented by: Polyethylene Glycol (Miralax) 17 gm PO QDP PRN PRN Reason: Constipation Prochlorperazine (Compazine) 5 mg IV Q4HP PRN PRN Reason: Nausea And Vomiting Promethazine HCl (Phenergan) 12.5 mg PO Q6HP PRN PRN Reason: Nausea And Vomiting Senna (Senokot) 2 tab PO HSP PRN PRN Reason: Constipation Sodium Chloride (Saline Flush) 10 ml IV Q8 [facility] Last Admin: 12/21/18 06:06 Dose: 10 ml Documented by: Tramadol HCl (Ultram) 100 mg PO Q6HP PRN PRN Reason: Pain Last Admin: 12/19/18 11:59 Dose: 100 mg Documented by: Trazodone HCl (Desyrel) 100 mg PO HSP PRN PRN Reason: Insomnia Medical - PN: A/P - Time Spent With Patient Total time spent is greater than 50% in coordination of care (as documented) at patient's floor/unit and/or counseling patient: - Narrative A/P Narrative: A: *Right great toe osteomyelitis/cellulitis: As complication of diabetes - S/P amputation of Right Great Toe (12/18) *Bacteremia, GPC 1of2 draws *Sepsis (based on SIRS with source including elevated lactate as per CMS, although qsofa low): 2/ above -resolving *DM, poorly controlled with diabetic wounds and neuropathy: *HTN: *Chronic pain: is on norco/tramadol at home *Depression *Hypothyroid: *Tobacco Abuse P: -repeat BC's pending -Podiatry following -ID following -Dapto + Cefepime -pain control -started norvasc, prn IV BP meds -lantus (increase) and SSI -DM education -Smoking cessation counseling -pt/ot -ppx: heparin Medical - PN: Qual - VTE Deep Vein Thrombosis/Pulmonary Embolism Present on Admission: No
[2018-12-21] MEDS: INSULIN LISPRO 1 UNIT/0.01 ML UNIT SQ SCH ×2 (08:10→12:30)
[2018-12-21] MEDS ORDERED: INSULIN GLARGINE, HUMAN 1 UNIT/0.01 ML SQ SCH (09:00)
[2018-12-21] MEDS ORDERED: DOXYCYCLINE HYCLATE 100 MG TABLET.ORL PO SCH (09:00)
--- NOTE | 2018-12-21 09:52 | Infectious Disease Prog Note ---
Subjective Patient information: Note initiated : 12/21/18 at 9:46 am Service Date, if different from initiated Date: [] Patient: Jeanette Gonzalez 43 y/o F admitted on 12/18/18 for Right Great Toe Pain/Infection. Chief Complaint: [] Principal diagnosis: Osteomyelitis right great toe, now ampuation Interval history: Feels fine. Reports nausea. Denied any fever, chills, n/v, diarrhea. Endorses foot pain. Discussed with her outpt follow up plans, side effects and drug interactions of Doxycycline. Objective Objective Narrative: ao x 3, in nad Rt foot stump: looks swollen, tender to touch, warm, dried blood on dressing and closely approximated sutures able to move rest of the toes without pain, no pain/swelling/redness at the ankle joint - Vital Signs Vital signs: Vital Signs Temp Pulse Resp BP Pulse Ox 12/21/18 06:49 37.1 C 18 128/79 98 12/21/18 04:00 37.1 C 90 20 161/98 96 12/21/18 00:00 36.6 C 102 H 16 130/79 96 12/20/18 20:00 37.2 C 98 H 16 140/94 98 12/20/18 16:00 36.8 C 89 18 138/80 96 12/20/18 11:29 36.7 C 94 H 18 140/82 96 Intake and Output 12/20/18 12/21/18 12/21/18 21:59 05:59 13:59 Intake Total 360 700 Output Total 700 600 Balance -340 700 -600 Intake: Oral 360 700 Output: Void Amount 600 Emesis 700 Other: Meal Lunch Percent of Meal Consumed 100% Urine Color Bright Yellow Weight 69.173 kg Intake & Output: Intake & Output 12/20/18 12/21/18 12/21/18 21:59 05:59 13:59 Intake Total 360 700 Output Total 700 600 Balance -340 700 -600 Weight 69.173 kg Intake: Oral 360 700 Output: Void Amount 600 Emesis 700 Other: Meal Lunch Percent of Meal Consumed 100% Urine Color Bright Yellow - Lab 12/21/18 04:38 12/21/18 04:38 Most recent lab results Calcium 8.6 mg/dl (8.6-10.4) 12/21/18 04:38 Phosphorus 3.1 mg/dL (2.7-4.5) 12/19/18 04:50 Magnesium 1.7 mg/dL (1.6-2.5) 12/19/18 04:50 Microbiology 12/18/18 18:00 Toe - First Gram Stain - Final 12/18/18 18:00 Toe - First Anaerobic Culture - Preliminary 12/18/18 18:00 Toe - First Gram Stain - Final 12/18/18 18:00 Toe - First Wound Culture - Final Staphylococcus aureus 12/18/18 14:16 Toe - First Gram Stain - Final 12/18/18 14:16 Toe - First Wound Culture - Final Staphylococcus aureus 12/18/18 14:59 Blood Blood Culture - Preliminary 12/18/18 18:00 Toe - First Gram Stain - Final 12/18/18 18:00 Toe - First Anaerobic Culture - Preliminary 12/18/18 18:00 Toe - First Gram Stain - Final 12/18/18 18:00 Toe - First Wound Culture - Final 12/18/18 14:53 Blood Blood Culture - Preliminary Gram positive cocci 12/19/18 10:20 Nose - Both Right and Left MRSA (PCR) - Final Medications Active Medications: Acetaminophen (Tylenol) 650 mg PO Q6HP PRN PRN Reason: PAIN/FEVER > 101 Amlodipine Besylate (Norvasc) 5 mg PO DAILY [facility] Last Admin: 12/20/18 08:21 Dose: 5 mg Documented by: Admin: 12/19/18 07:50 Dose: 5 mg Documented by: MGARRED Bisacodyl (Dulcolax) 10 mg MN Q2-3DAYS PRN PRN Reason: Constipation Cyclobenzaprine HCl (Flexeril) 10 mg PO TIDP PRN PRN Reason: Muscle Pain Last Admin: 12/20/18 21:43 Dose: 10 mg Documented by: Admin: 12/20/18 14:48 Dose: 10 mg Documented by: Admin: 12/20/18 08:21 Dose: 10 mg Documented by: Admin: 12/19/18 11:59 Dose: 10 mg Documented by: Admin: 12/19/18 07:50 Dose: 10 mg Documented by: MGARRED Diagnostic Test (Pha) (Accu-Chek) 1 each FS ACHS [facility] Last Admin: 12/21/18 07:23 Dose: 1 each Documented by: Admin: 12/20/18 21:41 Dose: 1 each Documented by: Admin: 12/20/18 16:56 Dose: 1 each Documented by: Admin: 12/20/18 11:42 Dose: 1 each Documented by: ORI Diphenhydramine HCl (Benadryl) 25 mg PO Q4-6HP PRN PRN Reason: Allergic Symptoms Docusate Sodium (Colace) 100 mg PO BID [facility] Last Admin: 12/20/18 21:42 Dose: 100 mg Documented by: Admin: 12/20/18 08:21 Dose: 100 mg Documented by: Admin: 12/19/18 21:00 Dose: 100 mg Documented by: Admin: 12/19/18 07:50 Dose: 100 mg Documented by: Admin: 12/18/18 19:59 Dose: 100 mg Documented by: EARNESTINE Doxycycline Hyclate (Doxycycline Hyclate) 100 mg PO BID [facility] Enalaprilat (Enalaprilat 1.25mg/Ml 2ml Vial) 0 mg IV Q6 [facility] Admin: 12/21/18 06:04 Dose: 0.65 mg Documented by: HYUN Comments: gave 0.5mL/0.65mg for SBP 162 Admin: 12/21/18 00:42 Dose: Not Given Documented by: HYUN Non-Admin Reason: BP WNL Admin: 12/20/18 17:07 Dose: Not Given Documented by: MIGUELITO Non-Admin Reason: Vital Signs outside parameters Admin: 12/20/18 11:42 Dose: Not Given Documented by: ORI Non-Admin Reason: No Coverage Needed Admin: 12/20/18 06:25 Dose: Not Given Documented by: ORI Non-Admin Reason: No Coverage Needed Admin: 12/19/18 23:50 Dose: Not Given Documented by: DARBY Non-Admin Reason: B/P 121/79 Admin: 12/19/18 17:35 Dose: Not Given Documented by: ORI Non-Admin Reason: No Coverage Needed Admin: 12/19/18 11:59 Dose: 0.625 mg Documented by: Admin: 12/19/18 07:49 Dose: 1.25 mg Documented by: ORI Gabapentin (Neurontin) 800 mg PO TID [facility] Last Admin: 12/20/18 21:42 Dose: 800 mg Documented by: Admin: 12/20/18 14:33 Dose: 800 mg Documented by: Admin: 12/20/18 08:21 Dose: 800 mg Documented by: Admin: 12/19/18 21:00 Dose: 800 mg Documented by: Admin: 12/19/18 15:28 Dose: 800 mg Documented by: Admin: 12/19/18 07:50 Dose: 800 mg Documented by: Admin: 12/18/18 22:08 Dose: 800 mg Documented by: EARNESTINE Heparin Sodium (Porcine) (Heparin) 5,000 unit SQ Q12 [facility] Last Admin: 12/20/18 21:40 Dose: 5,000 unit Documented by: Admin: 12/20/18 08:22 Dose: 5,000 unit Documented by: Admin: 12/19/18 20:58 Dose: 5,000 unit Documented by: Admin: 12/19/18 07:49 Dose: 5,000 unit Documented by: ORI Hydromorphone HCl (Dilaudid) 0.5 mg IV Q2HP PRN PRN Reason: PAIN LEVEL > 6 Last Admin: 12/21/18 08:09 Dose: 0.5 mg Documented by: Admin: 12/21/18 06:03 Dose: 0.5 mg Documented by: Admin: 12/21/18 03:39 Dose: 0.5 mg Documented by: Admin: 12/21/18 01:12 Dose: 0.5 mg Documented by: Admin: 12/20/18 22:50 Dose: 0.5 mg Documented by: Admin: 12/20/18 19:54 Dose: 0.5 mg Documented by: Admin: 12/20/18 15:30 Dose: 0.5 mg Documented by: Admin: 12/20/18 11:43 Dose: 0.5 mg Documented by: Admin: 12/20/18 08:57 Dose: 0.5 mg Documented by: Admin: 12/20/18 06:16 Dose: 0.5 mg Documented by: Admin: 12/20/18 02:07 Dose: 0.5 mg Documented by: Admin: 12/19/18 20:59 Dose: 0.5 mg Documented by: Admin: 12/19/18 17:32 Dose: 0.5 mg Documented by: Admin: 12/19/18 12:32 Dose: 0.5 mg Documented by: Admin: 12/19/18 10:15 Dose: 0.5 mg Documented by: Admin: 12/19/18 07:49 Dose: 0.5 mg Documented by: Admin: 12/19/18 05:09 Dose: 0.5 mg Documented by: Admin: 12/19/18 01:17 Dose: 0.5 units Documented by: Admin: 12/18/18 22:09 Dose: 0.5 units Documented by: EARNESTINE Insulin Glargine (Lantus) 45 unit SQ BID [facility]STINA Insulin Human Lispro (Humalog) 0 unit SQ ACHS CHRISTINA; Protocol Last Admin: 12/21/18 08:10 Dose: 6 unit Documented by: Admin: 12/20/18 21:41 Dose: 6 unit Documented by: Admin: 12/20/18 17:02 Dose: 4 unit Documented by: Admin: 12/20/18 11:41 Dose: 2 unit Documented by: MGARRED Lorazepam (Ativan) 0.5 mg IV Q6HP PRN PRN Reason: ANXIETY/SEDATION Last Admin: 12/21/18 03:40 Dose: 0.5 mg Documented by: Admin: 12/20/18 19:55 Dose: 0.5 mg Documented by: Admin: 12/19/18 09:30 Dose: 0.5 mg Documented by: MGARRSABI Ondansetron HCl (Zofran) 4 mg IV Q6HP PRN PRN Reason: Nausea And Vomiting Last Admin: 12/20/18 15:30 Dose: 4 mg Documented by: MIGUELITO Oxycodone/Acetaminophen (Percocet 10-325mg) 1 tab PO Q4HP PRN PRN Reason: PAIN LEVEL 3-6 Last Admin: 12/21/18 07:16 Dose: 1 tab Documented by: Admin: 12/20/18 21:42 Dose: 1 tab Documented by: Admin: 12/20/18 14:48 Dose: 1 tab Documented by: Admin: 12/20/18 08:21 Dose: 1 tab Documented by: Admin: 12/19/18 23:55 Dose: 1 tab Documented by: Admin: 12/19/18 19:17 Dose: 1 tab Documented by: Admin: 12/19/18 15:28 Dose: 1 tab Documented by: Admin: 12/19/18 09:30 Dose: 1 tab Documented by: ORI Polyethylene Glycol (Miralax) 17 gm PO QDP PRN PRN Reason: Constipation Prochlorperazine (Compazine) 5 mg IV Q4HP PRN PRN Reason: Nausea And Vomiting Promethazine HCl (Phenergan) 12.5 mg PO Q6HP PRN PRN Reason: Nausea And Vomiting Senna (Senokot) 2 tab PO HSP PRN PRN Reason: Constipation Sodium Chloride (Saline Flush) 10 ml IV Q8 [facility]STINA Last Admin: 12/21/18 06:06 Dose: 10 ml Documented by: Admin: 12/20/18 22:50 Dose: 10 ml Documented by: HYUN Comments: flushed with prn dilaudid Admin: 12/20/18 14:34 Dose: 10 ml Documented by: Admin: 12/20/18 06:17 Dose: 10 ml Documented by: Admin: 12/19/18 21:00 Dose: 10 ml Documented by: Admin: 12/19/18 13:40 Dose: 10 ml Documented by: Admin: 12/19/18 04:41 Dose: 10 ml Documented by: Admin: 12/18/18 20:24 Dose: 10 ml Documented by: EARNESTINE Tramadol HCl (Ultram) 100 mg PO Q6HP PRN PRN Reason: Pain Last Admin: 12/19/18 11:59 Dose: 100 mg Documented by: Admin: 12/19/18 05:58 Dose: 100 mg Documented by: Admin: 12/18/18 23:54 Dose: 100 mg Documented by: EARNESTINE Trazodone HCl (Desyrel) 100 mg PO HSP PRN PRN Reason: Insomnia Assessment and Plan - Narrative A/P Narrative: Assessment: 1. Right great toe distal phalanx osteomyelitis with superficial and operative cultures growing MSSA: Postop day 3, status post right great toe amputation Given patient's prior history of left BKA, and the fact that forefoot amputations may not have good demarcation between infected and noninfected tissues due to the foot anatomy; will consider a prolonged course of antibiotics - overall getting better 2. No sepsis: Q-sofa score 1 3. Type 2 diabetes 4. 1.2 blood Cx with growth of Micrococcus spp. ; a contaminant - repeat blood Cx negative Recommendations: Given clinical improvement, and discharge plans; Stop IV daptomycin - Start PO Doxycycline 100 mg bid with stop date of 01/03/19 - will see pt in 2 weeks (ID follow up appt made for 01/03/19 at 2:15 pm) - Pt counselled about side effects and drug interactions for Doxycycline. Voices understanding - Pt counselled about keeping the leg elevated Maurisio Mathis MD Infectious disease
[2018-12-21] MEDS: amLODIPine 5 MG TABLET PO SCH (10:14)
[2018-12-21] MEDS: GABAPENTIN 400 MG CAPSULE PO SCH ×2 (10:14→15:10)
[2018-12-21] MEDS: HEPARIN 5,000 UNIT/ML VIAL SQ SCH (10:15)
[2018-12-21] MEDS: DOCUSATE SODIUM 100 MG CAPSULE PO SCH (10:15)
--- NOTE | 2018-12-21 13:32 | Discharge Summary ---
Medical - DS: Prov Patient information: Note initiated : 12/21/18 at 1:27 pm Service Date, if different from initiated Date: [] Patient: Jeanette Gonzalez 43 y/o F admitted on 12/18/18 for Right Great Toe Pain/Infection. Chief Complaint: [] Date of admission: 12/18/18 18:15 Discharge date: 12/21/18 Primary care physician: Avelina Mcclellan Consults: 12/18/18 14:38 Consult to Physician [CONS] Stat Comment: Consulting Provider: Maurisio Mathis Reason For Exam: Physician to Consult 12/18/18 14:41 Consult to Physician [CONS] Stat Comment: Consulting Provider: Marcel Green Reason For Exam: Physician to Consult 12/18/18 15:03 Consult to Physician [CONS] Stat Comment: Consulting Provider: Jai Villaseñor Reason For Exam: Physician to Consult Medical - DS: Meds - Discharge Medications Prescriptions: amLODIPine [Norvasc] 5 mg PO DAILY #30 tablet Doxycycline Hyclate 100 mg PO BID #26 tablet.orl Lantus Solostar 45 units SQ BID #1 Active and Home Medications: Home Medications blood sugar diagnostic strips See Dose Instructions .ROUTE .MEDSUPPLY #20 each 05/21/18 [History Confirmed 12/18/18 Last Taken Unknown] blood-glucose meter See Dose Instructions .ROUTE .MEDSUPPLY #1 each 05/21/18 [History Confirmed 12/18/18 Last Taken Unknown] cyclobenzaprine 10 mg tablet 10 mg PO TID PRN 05/21/18 [History Confirmed 12/18/18 Last Taken 12/18/18 09:00] gabapentin 800 mg tablet 800 mg PO TID tab 05/21/18 [History Confirmed 12/18/18 Last Taken 12/18/18 09:00] lancets See Dose Instructions .ROUTE .MEDSUPPLY #50 each 05/21/18 [History Confirmed 12/18/18 Last Taken Unknown] pen needle, diabetic 1 each MISCELLANE ACHS 05/21/18 [History Confirmed 12/18/18 Last Taken Unknown] polyethylene glycol 3350 17 g PO QDAY PRN 05/21/18 [History Confirmed 12/18/18 Last Taken 12/17/18 21:00] hydrocodone 10 mg-acetaminophen 325 mg tablet 1 - 2 tab PO TID PRN tab 05/22/18 [History Confirmed 12/18/18 Last Taken 12/18/18 12:00] tramadol 50 mg tablet 100 mg PO Q6HP PRN tab 05/22/18 [History Confirmed 12/18/18 Last Taken 12/18/18 09:00] Cephalexin [Keflex] 500 mg PO QID #30 cap 10/15/18 [Rx Confirmed 12/18/18 Last Taken 12/18/18 09:00] Lantus Solostar 40 units SQ BID 12/18/18 [History Confirmed 12/18/18 Last Taken 12/18/18 09:00] Ondansetron HCl [Zofran] 4 mg PO Q4-6HP PRN 12/18/18 [History Confirmed 12/18/18 Last Taken 12/17/18 21:00] traZODone HCL [Trazodone HCl] 100 mg PO HSP PRN 12/18/18 [History Confirmed 12/18/18 Last Taken 12/17/18 21:00] Home Medications blood sugar diagnostic strips See Dose Instructions .ROUTE .MEDSUPPLY #20 each 05/21/18 [History Confirmed 12/18/18 Last Taken Unknown] blood-glucose meter See Dose Instructions .ROUTE .MEDSUPPLY #1 each 05/21/18 [History Confirmed 12/18/18 Last Taken Unknown] cyclobenzaprine 10 mg tablet 10 mg PO TID PRN 05/21/18 [History Confirmed 12/18/18 Last Taken 12/18/18 09:00] gabapentin 800 mg tablet 800 mg PO TID tab 05/21/18 [History Confirmed 12/18/18 Last Taken 12/18/18 09:00] lancets See Dose Instructions .ROUTE .MEDSUPPLY #50 each 05/21/18 [History Confirmed 12/18/18 Last Taken Unknown] pen needle, diabetic 1 each MISCELLANE ACHS 05/21/18 [History Confirmed 12/18/18 Last Taken Unknown] polyethylene glycol 3350 17 g PO QDAY PRN 05/21/18 [History Confirmed 12/18/18 Last Taken 12/17/18 21:00] hydrocodone 10 mg-acetaminophen 325 mg tablet 1 - 2 tab PO TID PRN tab 05/22/18 [History Confirmed 12/18/18 Last Taken 12/18/18 12:00] tramadol 50 mg tablet 100 mg PO Q6HP PRN tab 05/22/18 [History Confirmed 12/18/18 Last Taken 12/18/18 09:00] Cephalexin [Keflex] 500 mg PO QID #30 cap 10/15/18 [Rx Confirmed 12/18/18 Last Taken 12/18/18 09:00] Ondansetron HCl [Zofran] 4 mg PO Q4-6HP PRN 12/18/18 [History Confirmed 12/18/18 Last Taken 12/17/18 21:00] traZODone HCL [Trazodone HCl] 100 mg PO HSP PRN 12/18/18 [History Confirmed 12/18/18 Last Taken 12/17/18 21:00] Doxycycline Hyclate 100 mg PO BID #26 tablet.orl 12/21/18 [Rx Last Taken Unknown] Lantus Solostar 45 units SQ BID #1 12/21/18 [Rx Last Taken Unknown] amLODIPine [Norvasc] 5 mg PO DAILY #30 tablet 12/21/18 [Rx Last Taken Unknown] Medical - DS: Hosp Hospital course: Mr. Gonzalez is a 43 year old F Ms. Gonzalez is a 43 year old F to the ED because of concerns regarding her right great toe. She reports that last night she took her sock off and part of her skin came off from the right toe and she began bleeding which took approximately 45 minutes for to stop. She went into [facility] who sent her into the ED because of concern for gangrenous toe. She also notes looks dusky today. She was seen in the ED about 10 days ago for UTI and possible infection of the toe given anabiotic's. Also noted in May 2018 she had a left [id number] amputation for gangrenous lower limb. She will fine yesterday morning but overnight developed fever chills and also had some nausea vomiting. In the ED at x-ray of the toes consistent with ostium myelitis. Blood sugars are 395. Dr. Green and Dr. Mathis were contacted from the ED. Patient will undergo surgical intervention shortly. 12/19 Poor sleep last night because of pain in the right foot. Otherwise no complaints. 12/20 Slept better. No overnight events. No new complaints. 12/21 At some nausea after lunch yesterday but none today. Slept okay. Gram-positive cocci in 1 of 2 blood draws. Repeat blood cultures drawn yesterday and awaiting final results. first culture deemed contaminant see ID specialist note. Follow blood cultures negative. Will discharge on doxycycline. Also started Norvasc because of elevated blood pressures which are noted on old admit as well. Discharge diagnosis: Right great toe osteomyelitis and cellulitis status post amputation Secondary discharge diagnosis: Diabetes hypertension chronic pain depression hypothyroidism tobacco abuse - Time Spent with Patient Total time spent providing and/or coordinating discharge services: Greater than 30 minutes Medical - DS: Exam - Constitutional Vitals: Vital Signs Temp Pulse Resp BP Pulse Ox 12/21/18 06:49 98.7 F 18 128/79 98 12/21/18 04:00 98.8 F 90 20 161/98 96 12/21/18 00:00 98 F 102 H 16 130/79 96 12/20/18 20:00 98.9 F 98 H 16 140/94 98 12/20/18 16:00 98.2 F 89 18 138/80 96 Intake and Output 12/20/18 12/21/18 12/21/18 21:59 05:59 13:59 Intake Total 360 700 Output Total 700 600 Balance -340 700 -600 Intake: Oral 360 700 Output: Void Amount 600 Emesis 700 Other: Meal Lunch Percent of Meal Consumed 100% Urine Appearance Clear Urine Color Bright Yellow Weight 69.173 kg Medical - DS: Data Labs on day of discharge: Labs from last 24 hours 12/21/18 12/21/18 04:38 04:38 WBC 11.4 H RBC 3.54 L Hgb 10.6 L Hct 31.9 L MCV 90.1 MCH 29.9 MCHC 33.2 RDW 13.4 Plt Count 314 MPV 7.0 L Gran % 68.9 Lymph % (Auto) 21.2 Door % (Auto) 5.2 Eos % (Auto) 4.3 Baso % (Auto) 0.4 Gran # 7.9 Lymph # (Auto) 2.4 Door # (Auto) 0.6 Eos # (Auto) 0.5 Baso # (Auto) 0 Sodium 138 Potassium 3.4 Chloride 105 Carbon Dioxide 24 Anion Gap 9.0 BUN 12 Creatinine 0.7 GFR Calculation 106 Glucose 196 H Calcium 8.6 Preliminary micro results at discharge 12/18/18 18:00 Anaerobic Culture - Preliminary Toe - First 12/18/18 18:00 Anaerobic Culture - Preliminary Toe - First 12/20/18 08:09 Blood Culture - Preliminary Blood 12/20/18 08:01 Blood Culture - Preliminary Blood 12/18/18 14:59 Blood Culture - Preliminary Blood 12/18/18 14:53 Blood Culture - Preliminary Blood Gram positive cocci Medical - DS: A/P - Patient/Caregiver Discharge Instructions Activity: increase activity as tolerated Diet: Consistent Carbohydrate - Follow up Plan Follow up with: Maurisio Mathis MD [Physician] - 01/03/19 2:15 pm ( ) Avelina Mcclellan MD [Primary Care Provider] - Marcel Green DPM [Physician] - (follow up in clinic 1 week after discharge) Disposition: Home, Self-Care Prognosis: Fair Rehab Potential: Fair Medical - DS: Qual - VTE Deep Vein Thrombosis/Pulmonary Embolism Present on Admission: No
--- NOTE | 2018-12-24 13:20 | Surgical Pathology Report ---
HISTOLOGY SPECIMEN MICROSCOPIC DIAGNOSIS DIGIT, RIGHT TOE, AMPUTATION: -- EPIDERMAL ULCERATION, NECROSIS, GRANULATION TISSUE AND ACUTE/CHRONIC OSTEOMYELITIS. -- MARGINS VIABLE AND FREE OF OSTEOMYELITIS. (RLF:sln) PROCEDURAL IMPRESSION Osteomyelitis right great toe. GROSS DESCRIPTION The specimen is received as right great toe and consists of an amputated great toe that measures 6.5 cm from the tip of the toe to the articular resection margin and 5.7 cm from the tip of the toe to the longest portion of skin. The articular resection margin extends beyond the cutaneous resected margin by up to 3.8 cm. The toe has a width of 3.2 cm and a thickness of 3.1 cm. The nail plate is present, but disrupted and measures 1.6 x 0.8 cm. The tip of the toe has a firm ulcer with associated callous that measures 3.5 x 2.5 cm. Cross sections of the ulcer bed are submitted in A1. The distal phalangeal bone associated with ulcer is submitted in A2. The cutaneous and osseous resection margins are submitted in A3. (GRETCHEN:mesfin) Electronically Signed by: Meaghan Graves M.D.
== END 2018-12-21 16:15 | disposition home or self-care (01) | DRG 854 ==
LOC: ED 12:52 → SUR 16:19 → MEDSUR 18:15
PROVIDERS: ADMIT Internal Medicine; ATTEND Internal Medicine

== ENCOUNTER 2019-01-29 12:45 | Observation (INO) ==
[2019-01-29] MEDS ORDERED: IOPAMIDOL 100 ML BOTTLE IV ONE (12:46)
[2019-01-29] MEDS ORDERED: 0.9 % SODIUM CHLORIDE 1,000 ML IV ONE ×2 (13:16→17:04)
[2019-01-29] MEDS ORDERED: ONDANSETRON 4 MG/2 ML VIAL IV ONE ×2 (13:42→16:06)
[2019-01-29] MEDS ORDERED: HYDROmorphone 2 MG/ML VIAL IV SCH (13:45)
[2019-01-29 14:19] LABS: Basophils # (Auto) 0 K/mcL (0.0-0.3); Basophils % (Auto) 0.3 % (0.0-2.0); Eosinophils # (Auto) 0.1 K/mcL (0.0-0.7); Eosinophils % (Auto) 0.6 % (0.0-7.0); Lymphocytes # (Auto) 2.4 K/mcL (1.5-4.8); Lymphocytes % (Auto) 18.1 % (15.5-49.0); Mean Cell Volume 88.1 fL (80.0-100.0); Mean Corpuscular HGB Conc 33.6 g/dL (31.0-36.0); Monocytes # (Auto) 0.4 K/mcL (0.1-0.9); Platelet Count 417 K/mcL (140-440); RBC 4.63 M/mcL (4.00-5.20); Red Cell Distribution Width 12.8 % (11.5-14.5)
[2019-01-29 14:37] LABS: ALT/SGPT 10 U/l (0-40); Albumin 3.9 gm/dL (3.2-5.2); Alkaline Phosphatase 184 U/L (39-117); Blood Urea Nitrogen 15 mg/dl (6-20)
[2019-01-29] MEDS ORDERED: INSULIN REGULAR, HUMAN 1 UNIT/0.01 ML UNIT SQ ONE (15:22)
[2019-01-29] MEDS ORDERED: HYDROmorphone 2 MG/ML VIAL IV ONE (16:21)
[2019-01-29 16:48] LABS: Lymphocytes % 19 % (15-49); Monocytes % (Manual) 2 % (1-12); Platelet Estimate NORMAL (NORMAL); RBC Morphology NORMAL (NORMAL); Segmented Neutrophils % 79 % (38-78)
--- NOTE | 2019-01-29 16:57 | Emergency Department Note ---
Nausea/Vomiting/Diarrhea HPI - General Chief complaint: Nausea/Vomiting/Diarrhea Stated complaint: N/V since last night Time Seen by Provider: 01/29/19 13:03 Source: patient Mode of arrival: ambulatory Limitations: no limitations - History of Present Illness HPI Narrative: 43-year-old female presents with 24-hour history of nausea and, vomiting, and diarrhea. States she cannot keep anything down. Her blood sugars have been high for several days. States she is supposed to see Dr. Green this afternoon at 3 PM for recheck of her foot as she had a recent toe amputation and she thinks that could be infected. Positive chills, unknown fever. States she is just been feeling off lately and cannot describe it and she thinks something else is going on. No abdominal pain. No dysuria or frequency. She does have bilateral lower extremity pain. 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 - Related Data Home Medications Medication Instructions Recorded Confirmed blood sugar diagnostic strips See Dose Instructions .ROUTE 05/21/18 01/21/19 .MEDSUPPLY #20 each blood-glucose meter See Dose Instructions .ROUTE 05/21/18 01/21/19 .MEDSUPPLY #1 each cyclobenzaprine 10 mg tablet 10 mg PO TID PRN 05/21/18 01/21/19 gabapentin 800 mg tablet 800 mg PO TID tab 05/21/18 01/21/19 lancets See Dose Instructions .ROUTE 05/21/18 01/21/19 .MEDSUPPLY #50 each pen needle, diabetic 1 each MISCELLANE ACHS 05/21/18 01/21/19 polyethylene glycol 3350 17 g PO QDAY PRN 05/21/18 01/21/19 hydrocodone 10 mg-acetaminophen 1 - 2 tab PO TID PRN tab 05/22/18 01/21/19 325 mg tablet tramadol 50 mg tablet 100 mg PO Q6HP PRN tab 05/22/18 01/21/19 Ondansetron HCl [Zofran] 4 mg PO Q4-6HP PRN 12/18/18 01/21/19 traZODone HCL [Trazodone HCl] 100 mg PO HSP PRN 12/18/18 01/21/19 Previous Rx's Medication Instructions Recorded Lantus Solostar 45 units SQ BID #1 12/21/18 amLODIPine [Norvasc] 5 mg PO DAILY #30 tab 12/21/18 Ondansetron [Zofran ODT] 4 mg SL Q4-6HP PRN #20 tab 01/19/19 doxycycline hyclate 100 mg tablet 100 mg PO BID #30 tab 01/22/19 Allergies Allergy/AdvReac Type Severity Reaction Status Date / Time vancomycin Allergy Severe Anaphylaxis Verified 01/21/19 13:09 adhesive tape Allergy Intermediate rash and Verified 01/21/19 13:09 allergy NSAIDS (Non-Steroidal Allergy Intermediate Rash Verified 01/21/19 13:09 Anti-Inflamma Amoxicillin AdvReac Mild Nausea Verified 01/21/19 13:09 escitalopram [From Lexapro] AdvReac Mild Diarrhea Verified 01/21/19 13:09 fentanyl AdvReac Mild halucinations Verified 01/21/19 13:09 and confusion fluoxetine [From Prozac] AdvReac Mild Nausea Verified 01/21/19 13:09 ketorolac [From Toradol] AdvReac Mild Vomiting Verified 01/21/19 13:09 metformin AdvReac Mild Nausea Verified 01/21/19 13:09 methocarbamol AdvReac Mild Nausea Verified 01/21/19 13:09 metoclopramide [From Reglan] AdvReac Mild Shakiness Verified 01/21/19 13:09 morphine AdvReac Mild Headache Verified 01/21/19 13:09 Paroxetine [From Paxil] AdvReac Mild Nausea Verified 01/21/19 13:09 promethazine [From Phenergan] AdvReac Mild Shakiness Verified 01/21/19 13:09 Sulfa (Sulfonamide AdvReac Mild Nausea Verified 01/21/19 13:09 Antibiotics) Review of Systems All systems ED: reviewed and negative except as stated. 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) long term (current) use of insulin (Chronic) Diabetic peripheral neuropathy (Chronic) Benign essential hypertension (Chronic) CKD (chronic kidney disease) stage 2, GFR 60-89 ml/min (Chronic) Hyperlipidemia (Chronic) Leg pain, left (Chronic) Sepsis due to undetermined organism without resultant organ failure (Resolved) Pyelonephritis (Resolved) Diabetic foot ulcer (Chronic) Osteomyelitis of toe of right foot (Chronic) Depression, major, recurrent, moderate (Chronic) Tachycardia (Chronic) Genital herpes (Chronic) Hypothyroidism (Chronic) Noncompliance with medication regimen (Chronic) Ex-smoker (Chronic) DDD (degenerative disc disease), lumbosacral (Chronic) Lumbar back pain (Chronic) Chronic back pain (Chronic) Elevated hemoglobin A1c (Chronic) Hyponatremia (Acute) Elevated sed rate (Chronic) Hepatomegaly (Chronic) Acute bilateral ankle pain (Resolved) Burn of third degree of left foot, subsequent encounter (Resolved) Cellulitis (Resolved) Cellulitis and abscess of foot (Resolved) Contusion of foot with skin surface intact (Resolved) Diarrhea (Resolved) Elevated liver enzymes (Resolved) Hyperosmolar non-ketotic state in patient with type 2 diabetes mellitus (Resolved) Laceration (Resolved) Nausea (Resolved) Osteomyelitis due to type 1 diabetes mellitus (Resolved) Sepsis affecting skin (Resolved) Ulcer of left foot (Resolved) Urinary tract infection (Resolved) Acquired absence of left great toe (Inactive) Chronic leg pain (Inactive) Coagulase-negative staphylococcal infection (Inactive) Diabetes (Inactive) Diabetes mellitus with foot ulcer due to multiple causes (Inactive) Diabetic foot infection (Inactive) Gangrene of toe (Inactive) Hyperglycemia due to type 1 diabetes mellitus (Inactive) Hyperglycemia due to type 2 diabetes mellitus (Inactive) Type 1 diabetes mellitus (Inactive) Wound infection (Inactive) Past Surgical History (Last Reviewed 01/21/19 @ 14:27 by Ana Abebe RN) History of appendectomy (Chronic) History of cholecystectomy (Chronic) History of incision and drainage (Chronic 01/01/18) History of partial hysterectomy (Chronic) History of tubal ligation (Chronic) 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 Absent: conjunctival injection ENT: mucous membranes moist Chest: Present: symmetric chest wall rise Respiratory: Present: normal lung sounds bilaterally. Absent: respiratory distress, rales/crackles, accessory muscle use Cardiovascular: Present: regular rate, normal heart sounds Extremities: Present: normal capillary refill. Absent: normal inspection (Left lower extremity below the knee amputation and right lower extremity with dressing intact to right great toe that was recently amputated. Dr. Green here to evaluate right foot.) Neurological: Present: alert, oriented X3 Psychiatric: Present: normal affect, normal mood Skin: Present: warm, dry, intact, other (Right great toe with 2.5 cm healing incision. No redness or warmth. It is scabbed over and slightly dehisced) Course Course Narrative: At 1700 I did speak with the hospitalist, Dr. Munoz regarding this patient. He would like us to give her some more fluid, get a pH and repeat anion gap after another liter of fluid input consider CT of the abdomen and pelvis if she is still having nausea, vomiting Patient did receive 3 L of IV fluid as well as multiple doses of IV Dilaudid and Zofran. Her nausea and pain did improve. Her labs also all improved including anion gap calculated at 14 and pH of 7.33. Patient to be discharged home with close follow-up. Vital Signs Temperature 97.2 F 01/29/19 12:46 Pulse Rate 113 H 01/29/19 12:46 Respiratory Rate 18 01/29/19 12:46 Blood Pressure 165/106 01/29/19 12:46 Pulse Oximetry (%) 99 01/29/19 12:46 Temperature 97.2 F 01/29/19 12:46 Pulse Rate 89 01/29/19 19:02 Respiratory Rate 20 01/29/19 16:58 Blood Pressure 162/96 01/29/19 19:02 Pulse Oximetry (%) 98 01/29/19 19:02 Nausea/Vomiting/Diarrhea - Lab Data Lab results reviewed: Yes I reviewed the patient's lab results. Result diagrams: 01/29/19 13:38 01/29/19 13:37 Lab Results 01/29/19 01/29/19 01/29/19 Range/Units 13:37 13:37 13:37 WBC (4.5-11.0) K/mcL RBC (4.00-5.20) M/mcL Hgb (12.0-15.0) g/dL Hct (36.0-48.0) % POC Hct (36.0-48.0) % MCV (80.0-100.0) fL MCH (26.0-34.0) pg MCHC (31.0-36.0) g/dL RDW (11.5-14.5) % Plt Count (140-440) K/mcL MPV (7.4-10.4) fL Gran % (38.0-78.0) % Lymph % (Auto) (15.5-49.0) % [place] % (Auto) (1.0-12.0) % Eos % (Auto) (0.0-7.0) % Baso % (Auto) (0.0-2.0) % Gran # (1.8-8.0) K/mcL Lymph # (Auto) (1.5-4.8) K/mcL [place] # (Auto) (0.1-0.9) K/mcL Eos # (Auto) (0.0-0.7) K/mcL Baso # (Auto) (0.0-0.3) K/mcL Total Counted 100 Seg Neutrophils % 79 H (38-78) % Band Neutrophils % Not Reportable Lymphocytes % 19 (15-49) % Monocytes % (Manual) 2 (1-12) % Platelet Estimate Normal (NORMAL) RBC Morphology Normal (NORMAL) ABG Methemoglobin (0.4-1.5) % VBG pH (7.32-7.42) U VBG pCO2 (41.0-51.0) mmHg VBG pO2 (25-40) mmHg VBG HCO3 (24.0-28.0) mmol/L VBG Total CO2 (25.0-29.0) mmol/L VBG O2 Saturation (40.0-70.0) % VBG Base Excess (-2.0-2.0) VBG Lactic Acid 1.1 (0.5-2.0) mmol/L Carboxyhemoglobin (0.0-1.5) % THgb Total Hemoglobin (12.0-15.0) gm/dL O2 Delivery Level POC Sodium (133-145) mmol/L Sodium 134 (133-145) mmol/L POC Potassium (3.3-5.1) mmol/L Potassium 3.9 (3.3-5.1) mmol/L POC Chloride (96-108) mmol/L Chloride 96 (96-108) mmol/L Carbon Dioxide 20 L (22-30) mmol/L POC Total CO2 (22-30) mmol/L Anion Gap 18.0 H (8-16) POC BUN (6-20) mg/dl BUN 15 (6-20) mg/dl Creatinine 1.0 (0.6-1.1) mg/dl POC Creatinine (0.6-1.1) mg/dl GFR Calculation 69 Glucose 399 H (70-105) mg/dL POC Glucose (70-105) mg/dL Calcium 9.0 (8.6-10.4) mg/dl POC WB Ioniz Calcium (1.16-1.32) mmol/L Total Bilirubin 0.3 (0.0-1.0) mg/dL AST 11 (0-37) U/l ALT 10 (0-40) U/l Alkaline Phosphatase 184 H (39-117) U/L Total Protein 7.9 (5.9-8.4) gm/dL Albumin 3.9 (3.2-5.2) gm/dL Globulin 4.0 H (2.2-3.7) gm/dL Albumin/Globulin Ratio 1.0 (1.0-2.3) Beta-Hydroxybutyrate (< 0.27) mmol/L Procalcitonin (<0.10) ng/mL 01/29/19 01/29/19 01/29/19 Range/Units 13:37 13:38 13:38 WBC 13.1 H (4.5-11.0) K/mcL RBC 4.63 (4.00-5.20) M/mcL Hgb 13.7 (12.0-15.0) g/dL Hct 40.8 (36.0-48.0) % POC Hct (36.0-48.0) % MCV 88.1 (80.0-100.0) fL MCH 29.5 (26.0-34.0) pg MCHC 33.6 (31.0-36.0) g/dL RDW 12.8 (11.5-14.5) % Plt Count 417 (140-440) K/mcL MPV 7.4 (7.4-10.4) fL Gran % 78.0 (38.0-78.0) % Lymph % (Auto) 18.1 (15.5-49.0) % [place] % (Auto) 3.0 (1.0-12.0) % Eos % (Auto) 0.6 (0.0-7.0) % Baso % (Auto) 0.3 (0.0-2.0) % Gran # 10.3 H (1.8-8.0) K/mcL Lymph # (Auto) 2.4 (1.5-4.8) K/mcL [place] # (Auto) 0.4 (0.1-0.9) K/mcL Eos # (Auto) 0.1 (0.0-0.7) K/mcL Baso # (Auto) 0 (0.0-0.3) K/mcL Total Counted Seg Neutrophils % (38-78) % Band Neutrophils % Lymphocytes % (15-49) % Monocytes % (Manual) (1-12) % Platelet Estimate (NORMAL) RBC Morphology (NORMAL) ABG Methemoglobin (0.4-1.5) % VBG pH (7.32-7.42) U VBG pCO2 (41.0-51.0) mmHg VBG pO2 (25-40) mmHg VBG HCO3 (24.0-28.0) mmol/L VBG Total CO2 (25.0-29.0) mmol/L VBG O2 Saturation (40.0-70.0) % VBG Base Excess (-2.0-2.0) VBG Lactic Acid (0.5-2.0) mmol/L Carboxyhemoglobin (0.0-1.5) % THgb Total Hemoglobin (12.0-15.0) gm/dL O2 Delivery Level POC Sodium (133-145) mmol/L Sodium (133-145) mmol/L POC Potassium (3.3-5.1) mmol/L Potassium (3.3-5.1) mmol/L POC Chloride (96-108) mmol/L Chloride (96-108) mmol/L Carbon Dioxide (22-30) mmol/L POC Total CO2 (22-30) mmol/L Anion Gap (8-16) POC BUN (6-20) mg/dl BUN (6-20) mg/dl Creatinine (0.6-1.1) mg/dl POC Creatinine (0.6-1.1) mg/dl GFR Calculation Glucose (70-105) mg/dL POC Glucose (70-105) mg/dL Calcium (8.6-10.4) mg/dl POC WB Ioniz Calcium (1.16-1.32) mmol/L Total Bilirubin (0.0-1.0) mg/dL AST (0-37) U/l ALT (0-40) U/l Alkaline Phosphatase (39-117) U/L Total Protein (5.9-8.4) gm/dL Albumin (3.2-5.2) gm/dL Globulin (2.2-3.7) gm/dL Albumin/Globulin Ratio (1.0-2.3) Beta-Hydroxybutyrate 3.32 H (< 0.27) mmol/L Procalcitonin 0.10 (<0.10) ng/mL 01/29/19 01/29/19 Range/Units 17:55 17:55 WBC (4.5-11.0) K/mcL RBC (4.00-5.20) M/mcL Hgb (12.0-15.0) g/dL Hct (36.0-48.0) % POC Hct 29.0 L (36.0-48.0) % MCV (80.0-100.0) fL MCH (26.0-34.0) pg MCHC (31.0-36.0) g/dL RDW (11.5-14.5) % Plt Count (140-440) K/mcL MPV (7.4-10.4) fL Gran % (38.0-78.0) % Lymph % (Auto) (15.5-49.0) % [place] % (Auto) (1.0-12.0) % Eos % (Auto) (0.0-7.0) % Baso % (Auto) (0.0-2.0) % Gran # (1.8-8.0) K/mcL Lymph # (Auto) (1.5-4.8) K/mcL [place] # (Auto) (0.1-0.9) K/mcL Eos # (Auto) (0.0-0.7) K/mcL Baso # (Auto) (0.0-0.3) K/mcL Total Counted Seg Neutrophils % (38-78) % Band Neutrophils % Lymphocytes % (15-49) % Monocytes % (Manual) (1-12) % Platelet Estimate (NORMAL) RBC Morphology (NORMAL) ABG Methemoglobin 0 L (0.4-1.5) % VBG pH 7.33 (7.32-7.42) U VBG pCO2 45.5 (41.0-51.0) mmHg VBG pO2 66 H (25-40) mmHg VBG HCO3 23.5 L (24.0-28.0) mmol/L VBG Total CO2 24.9 L (25.0-29.0) mmol/L VBG O2 Saturation 85.7 H (40.0-70.0) % VBG Base Excess -2.5 L (-2.0-2.0) VBG Lactic Acid (0.5-2.0) mmol/L Carboxyhemoglobin 3.7 H (0.0-1.5) % THgb Total Hemoglobin 11.3 L (12.0-15.0) gm/dL O2 Delivery Level Not Reportable POC Sodium 140 (133-145) mmol/L Sodium (133-145) mmol/L POC Potassium 3.2 L (3.3-5.1) mmol/L Potassium (3.3-5.1) mmol/L POC Chloride 106 (96-108) mmol/L Chloride (96-108) mmol/L Carbon Dioxide (22-30) mmol/L POC Total CO2 20 L (22-30) mmol/L Anion Gap (8-16) POC BUN 13 (6-20) mg/dl BUN (6-20) mg/dl Creatinine (0.6-1.1) mg/dl POC Creatinine 0.7 (0.6-1.1) mg/dl GFR Calculation Glucose (70-105) mg/dL POC Glucose 237 H (70-105) mg/dL Calcium (8.6-10.4) mg/dl POC WB Ioniz Calcium 1.03 L (1.16-1.32) mmol/L Total Bilirubin (0.0-1.0) mg/dL AST (0-37) U/l ALT (0-40) U/l Alkaline Phosphatase (39-117) U/L Total Protein (5.9-8.4) gm/dL Albumin (3.2-5.2) gm/dL Globulin (2.2-3.7) gm/dL Albumin/Globulin Ratio (1.0-2.3) Beta-Hydroxybutyrate (< 0.27) mmol/L Procalcitonin (<0.10) ng/mL - Radiology Data Radiology results reviewed: Yes I reviewed the patient's radiology results. Disposition Pt seen by BROACH SETTER/PA only: No Clinical Impression: DKA (diabetic ketoacidoses), Hyperglycemia, Vomiting, Diarrhea Disposition: Home, Self-Care Condition: Fair Instructions: Diabetic Ketoacidosis (ED), Diabetes Mellitus Type 1 in Adults (ED), Acute Nausea and Vomiting (ED) Additional Instructions: Increase oral fluids and rest. Take your pain and nausea medication at home as needed. Make sure you are checking your blood sugars as directed daily and taking her medications as prescribed. Recheck with your primary care provider within the next 24 to 48 hours for follow-up or return to the ER for worsening signs and symptoms or other concerns. Referrals: Avelina Mcclellan MD [Primary Care Provider] - Marcel Green DPM [Physician] - Time of Disposition: 19:25
[2019-01-29] MEDS ORDERED: INSULIN REGULAR, HUMAN 50 UNIT in 0.9 % SODIUM CHLORIDE 99.5 ML IV SCH (17:15)
[2019-01-29 18:16] LABS: ABG Methemoglobin 0 % (0.4-1.5); VBG Base Excess -2.5 (-2.0-2.0); VBG HCO3 23.5 mmol/L (24.0-28.0); VBG Oxygen Saturation 85.7 % (40.0-70.0); VBG PCO2 45.5 mmHg (41.0-51.0); VBG PH 7.33 U (7.32-7.42); VBG PO2 66 mmHg (25-40); VBG Total CO2 24.9 mmol/L (25.0-29.0)
--- NOTE | 2019-01-29 18:57 | Cat Scan Report ---
CLINICAL INFORMATION: Abdominal pain nausea and vomiting COMPARISON: 08/11/2018 TECHNIQUE: Following enteric contrast, 80 cc of Isovue-300 were injected intravenously, and 60 seconds later, 0.625 mm helical slices were obtained from the mid heart through the subtrochanteric regions. Following reconstruction, 2.5 mm sagittal, coronal and axial reformatted images were processed and reviewed at bone, lung and soft tissue windows. Five minutes later, 0.625 mm helical slices were obtained from the mid heart through the kidneys and viewed at soft tissue windows.The exam was performed using radiation dose optimization techniques including, but not limited to, automated exposure control, adjustment of the mA and/or kV according to patient size and use of iterative reconstruction technique. FINDINGS: Lung bases show no abnormality - no effusion. The visualized heart is normal. Small hiatal hernia again noted. Impression the abdomen show mild fatty change within the liver. Liver is normal in size. No focal hepatic lesions. The gallbladder is surgically absent. Intrahepatic common bile ducts are normal caliber CBD is 6 mm. The pancreas, both kidneys, adrenal glands, spleen and aorta including aortic branches are normal in size configuration and attenuation without focal lesion. No free air, free fluid or adenopathy. Images through the pelvis show urinary bladder is unremarkable. Hysterectomy changes noted. The stomach, small and large bowel are normal. Appendix is surgically absent. IMPRESSION: Small hiatal hernia otherwise normal Interpreted and Authenticated by: Jeremy Tuttle 01/29/19
[2019-01-29] MEDS ORDERED: METOCLOPRAMIDE 10 MG/2 ML VIAL IV ONE (20:11)
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
[2019-01-29] MEDS ORDERED: MAGNESIUM SULFATE 2 GM/50 ML BAG IV PRN (21:36)
[2019-01-29] MEDS ORDERED: DEXTROSE 50% 50 ML VIAL IV PRN (21:36)
[2019-01-29] MEDS ORDERED: PROMETHAZINE 25 MG/ML VIAL IV PRN (21:36)
[2019-01-29] MEDS ORDERED: ACETAMINOPHEN 325 MG TABLET PO PRN (21:36)
[2019-01-29] MEDS ORDERED: DEXTROSE 31 GM ORAL.SUSP PO PRN (21:36)
[2019-01-29] MEDS ORDERED: POTASSIUM CHLORIDE 20 MEQ PACKET PO PRN (21:36)
[2019-01-29] MEDS: DOCUSATE SODIUM 100 MG CAPSULE PO SCH ×2 (22:08→22:23)
[2019-01-29] MEDS: SENNOSIDES/DOCUSATE SODIUM 1 TAB TABLET PO SCH ×2 (22:09→22:23)
[2019-01-29] MEDS: 0.9 % SODIUM CHLORIDE 10 ML SYRINGE IV SCH (22:20)
[2019-01-29] MEDS: ONDANSETRON 4 MG/2 ML VIAL IV PRN (22:20)
[2019-01-29] MEDS: LACTATED RINGERS 1,000 ML IV SCH (22:20)
[2019-01-29] MEDS: HYDROmorphone 2 MG/ML VIAL IV PRN (22:21)
[2019-01-29] MEDS: INSULIN LISPRO 1 UNIT/0.01 ML UNIT SQ SCH (22:23)
[2019-01-29] MEDS: HEPARIN 5,000 UNIT/ML VIAL SQ SCH (22:32)
[2019-01-30] MEDS: HYDROmorphone 2 MG/ML VIAL IV PRN ×4 (04:01→16:06)
[2019-01-30] MEDS: ONDANSETRON 4 MG/2 ML VIAL IV PRN ×4 (04:01→16:09)
[2019-01-30] MEDS: 0.9 % SODIUM CHLORIDE 10 ML SYRINGE IV SCH ×3 (05:07→20:05)
[2019-01-30 06:12] LABS: Appearance,Urine CLEAR; Bacteria,Urine 0 /hpf (0); Bilirubin,Urine NEG (NEG); Color,Urine STRAW; Glucose,Urine (UA) >=500 mg/dL (NEG); Leukocyte Esterase,Urine 25 /uL (NEG); Mucus,Urine FEW /hpf (0); Protein,Urine 100 mg/dL (NEG); Urine Blood 0.2 mg/dL (<0.03); Urine Budding Yeast MOD /hpf (0); Urine RBC 11 /hpf (0-1); Urine Squamous Epithelial Cell 5 /hpf (0-4); Urine Transitional Epi Cells < 1 /hpf (0-2); Urine WBC 38 /hpf (0-4); Urobilinogen,Urine NEG (NEG)
[2019-01-30 06:12] LABS: Mean Cell Volume 90.2 fL (80.0-100.0); Mean Corpuscular HGB Conc 32.8 g/dL (31.0-36.0); Platelet Count 373 K/mcL (140-440); RBC 4.25 M/mcL (4.00-5.20); Red Cell Distribution Width 12.6 % (11.5-14.5)
[2019-01-30 07:25] LABS: ALT/SGPT 9 U/l (0-40); Albumin 3.2 gm/dL (3.2-5.2); Albumin/Globulin Ratio 0.9 (1.0-2.3); Alkaline Phosphatase 152 U/L (39-117); Bilirubin,Direct < 0.2 mg/dL (0.0-0.3); Blood Urea Nitrogen 10 mg/dl (6-20); Gamma Glutamyl Transpeptidase 30 U/L (5-36)
[2019-01-30 07:58] LABS: Eosinophils % (Manual) 1 % (0-7); Lymphocytes % 24 % (15-49); Monocytes % (Manual) 4 % (1-12); Platelet Estimate NORMAL (NORMAL); RBC Morphology NORMAL (NORMAL); Segmented Neutrophils % 71 % (38-78)
[2019-01-30] MEDS: INSULIN LISPRO 1 UNIT/0.01 ML UNIT SQ SCH ×4 (08:16→20:05)
[2019-01-30] MEDS: LACTATED RINGERS 1,000 ML IV SCH ×3 (08:18→19:37)
[2019-01-30] MEDS ORDERED: traZODone HCL 100 MG TABLET PO PRN (08:20)
[2019-01-30] MEDS ORDERED: CYCLOBENZAPRINE 10 MG TABLET PO PRN (08:20)
[2019-01-30] MEDS ORDERED: HYDROcodone/APAP 10/325MG TABLET PO PRN (08:20)
[2019-01-30] MEDS ORDERED: POLYETHYLENE GLYCOL 3350 17 GM PACKET PO PRN (08:24)
--- NOTE | 2019-01-30 08:39 | Emergency Department Note ---
ED Note Addendum Note Addendum: I saw this patient with Monika LAMAR. I personally looked at her foot wounds and discussed the case with Monika. I agree with her evaluation management and documentation. I note that Dr. Audi Green came down and looked at her foot wounds. Also note the patient appeared to be in DKA and after briefly starting an insulin drip her anion gap resolved. However she was medically fragile and continued to have nausea and vomiting intractably-she had 2 doses of Zofran and 1 dose of Phenergan. Because of the intractable nausea and vomiting we were unable to send her home and instead consulted hospitalist for admission. There is a high probability she would have gone back into DKA if we had not admitted her as she continued to have bilious nausea and vomiting
[2019-01-30] MEDS: HEPARIN 5,000 UNIT/ML VIAL SQ SCH ×2 (10:11→21:04)
[2019-01-30] MEDS: INSULIN GLARGINE, HUMAN 1 UNIT/0.01 ML SQ SCH ×2 (10:11→21:04)
[2019-01-30] MEDS: GABAPENTIN 400 MG CAPSULE PO SCH ×3 (10:12→21:09)
[2019-01-30] MEDS: MULTIVIT,THER IRON,CA,FA & MIN 1 TABLET PO SCH (10:13)
[2019-01-30] MEDS: amLODIPine 5 MG TABLET PO SCH (10:13)
[2019-01-30] MEDS: DOCUSATE SODIUM 100 MG CAPSULE PO SCH ×2 (11:05→20:06)
[2019-01-30] MEDS: DOXYCYCLINE HYCLATE 100 MG TABLET.ORL PO SCH ×2 (11:07→21:09)
[2019-01-30] MEDS: NEUTRA PHOS 1 PACKET PO SCH ×2 (11:07→21:10)
--- NOTE | 2019-01-30 11:15 | Internal Med Progress Note ---
Medical - PN: Subj Patient information: Note initiated : 01/30/19 at 11:13 am Service Date, if different from initiated Date: [] Patient: Jeanette Gonzalez a 43 y/o F admitted on 01/29/19 for N/V Since Last Night. Chief Complaint: [] Interval history: Ms. Gonzalez is a 43 year old F who presents to the ER with acute onset nausea vomiting diarrhea that started roughly 24-hour prior to presentation. She denies sick contacts. She endorses to multiple episodes of watery diarrhea along with abdominal cramping associated nausea and unable to eat. Initial workup was consistent with volume depletion/ketosis, white count 13.1. patient was started on crystalloids/antiemetics will result in improvement however due to persistent nausea hospitalist service was consulted. At the time evaluation patient is alert and oriented. She is very distressed from persistent nausea. She denies recent changes in medication. Symptoms abruptly started 24 hours ago and has not had symptoms similar events in the past except during episodes of poorly controlled diabetes. She however feels that symptoms have been triggered by right foot amputation site infection which was evaluated in the ER by farm equipment technician who felt no further interventions were needed due to satisfactory healing 01/30- persistent nausea vomiting and diarrhea. On crystalloids/antiemetics. Continue monitoring. Liquid diet as tolerated. Negative workup so far including abdominal CT. White count 12.9. Phosphorus 1.9 magnesium 1.5 - Constitutional Vitals: Vital Signs Temp Pulse Resp BP Pulse Ox 99.5 F H 95 H 12 150/92 99 01/30/19 08:54 01/30/19 08:54 01/30/19 08:54 01/30/19 08:54 01/30/19 08:54 Period Temp Pulse Resp BP Sys/Santiago Pulse Ox Last 24 Hr 97.2 F-99.5 F 89-113 10-20 140-184/92-109 97-100 Intake and Output 01/29/19 01/30/19 01/30/19 21:59 05:59 13:59 Intake Total 1999 50 997 Output Total 1500 Balance 1999145 997 Weight 147 lb 11.2 oz Intake & Output: Intake & Output 01/29/19 01/30/19 01/30/19 21:59 05:59 13:59 Intake Total 1999 50 997 Output Total 1500 Balance 2000 -1450 997 Weight 147 lb 11.2 oz Intake: IV 1999 997 Sodium Chloride 0.9% 1,000 ml @ 2000 Wide Open IV BOLUS ONE Rx#: [id number] Lactated Ringers 1,000 ml @ 100 997 mls/hr IV .Q10H CHRISTINA Rx#: [id number] Oral 50 0 Output: Void Amount 1500 Other: Urine Color Dark Yellow # Voids 1 General appearance: no acute distress Exam: Persistent nausea and retching Anxious Nondistended abdomen Left BKA Right post amputation great toe stump dressing Medical - PN: Obj Da - Labs CBC & Chem 7: 01/30/19 04:27 01/30/19 04:27 Labs: Abnormal Lab Results 01/30/19 01/30/19 01/30/19 04:27 04:27 04:20 WBC 12.9 H POC Hct MPV 7.3 L Gran # Seg Neutrophils % ABG Methemoglobin VBG pO2 VBG HCO3 VBG Total CO2 VBG O2 Saturation VBG Base Excess Carboxyhemoglobin Total Hemoglobin POC Potassium Carbon Dioxide 19 L POC Total CO2 Anion Gap Glucose 257 H POC Glucose Calcium 8.0 L POC WB Ioniz Calcium Phosphorus 1.9 L Magnesium 1.5 L Alkaline Phosphatase 152 H Globulin Albumin/Globulin Ratio 0.9 L Triglycerides 223 H Beta-Hydroxybutyrate Urine Protein 100 A Urine Glucose (UA) >=500 A Urine Ketones 20 A Urine Occult Blood 0.2 A Ur Leukocyte Esterase 25 A Urine RBC 11 H Urine WBC 38 H Ur Squamous Epith Cells 5 H Urine Yeast (Budding) Mod A 01/29/19 01/29/19 01/29/19 17:55 17:55 13:38 WBC 13.1 H POC Hct 29.0 L MPV Gran # 10.3 H Seg Neutrophils % ABG Methemoglobin 0 L VBG pO2 66 H VBG HCO3 23.5 L VBG Total CO2 24.9 L VBG O2 Saturation 85.7 H VBG Base Excess -2.5 L Carboxyhemoglobin 3.7 H Total Hemoglobin 11.3 L POC Potassium 3.2 L Carbon Dioxide POC Total CO2 20 L Anion Gap Glucose POC Glucose 237 H Calcium POC WB Ioniz Calcium 1.03 L Phosphorus Magnesium Alkaline Phosphatase Globulin Albumin/Globulin Ratio Triglycerides Beta-Hydroxybutyrate Urine Protein Urine Glucose (UA) Urine Ketones Urine Occult Blood Ur Leukocyte Esterase Urine RBC Urine WBC Ur Squamous Epith Cells Urine Yeast (Budding) 01/29/19 01/29/19 01/29/19 13:37 13:37 13:37 WBC POC Hct MPV Gran # Seg Neutrophils % 79 H ABG Methemoglobin VBG pO2 VBG HCO3 VBG Total CO2 VBG O2 Saturation VBG Base Excess Carboxyhemoglobin Total Hemoglobin POC Potassium Carbon Dioxide 20 L POC Total CO2 Anion Gap 18.0 H Glucose 399 H POC Glucose Calcium POC WB Ioniz Calcium Phosphorus Magnesium Alkaline Phosphatase 184 H Globulin 4.0 H Albumin/Globulin Ratio Triglycerides Beta-Hydroxybutyrate 3.32 H Urine Protein Urine Glucose (UA) Urine Ketones Urine Occult Blood Ur Leukocyte Esterase Urine RBC Urine WBC Ur Squamous Epith Cells Urine Yeast (Budding) Meds: Medications Acetaminophen (Tylenol) 650 mg PO Q4-6HP PRN PRN Reason: PAIN/FEVER > 101 Hydrocodone Bitart/Acetaminophen ([place] 10/325mg) 1 - 2 tab PO TIDP PRN PRN Reason: Pain Amlodipine Besylate (Norvasc) 5 mg PO DAILY [facility] Last Admin: 01/30/19 10:13 Dose: 5 mg Documented by: Cyclobenzaprine HCl (Flexeril) 10 mg PO TIDP PRN PRN Reason: Muscle Pain Dextrose (Dextrose 50%) 0 ml IV UD PRN PRN Reason: Hypoglycemia Diagnostic Test (Pha) (Accu-Chek) 1 each FS ACHS [facility] Last Admin: 01/30/19 08:38 Dose: 1 each Documented by: Docusate Sodium (Colace) 100 mg PO BID [facility] Last Admin: 01/30/19 11:05 Dose: Not Given Documented by: Doxycycline Hyclate (Doxycycline Hyclate) 100 mg PO BID [facility] Last Admin: 01/30/19 11:07 Dose: Not Given Documented by: Gabapentin (Neurontin) 800 mg PO TID [facility] Last Admin: 01/30/19 10:12 Dose: 800 mg Documented by: Glucose (Insta-Glucose) 15 gm PO PRN PRN PRN Reason: Hypoglycemia Heparin Sodium (Porcine) (Heparin) 5,000 unit SQ Q12 [facility] Last Admin: 01/30/19 10:11 Dose: 5,000 unit Documented by: Hydromorphone HCl (Dilaudid) 0 mg IV Q4HP PRN PRN Reason: PAIN LEVEL > 6 Last Admin: 01/30/19 08:13 Dose: 0.25 mg Documented by: Lactated Ringer's (Lactated Ringers) 1,000 mls @ 100 mls/hr IV .Q10H [facility] Stop: 01/31/19 03:35 Last Admin: 01/30/19 08:18 Dose: 100 mls/hr Documented by: Magnesium Sulfate (Magnesium Sulfate) 2 gm in 50 mls @ 50 mls/hr IV UD PRN PRN Reason: MG = or < 1.7 Last Admin: 01/30/19 10:14 Dose: 50 mls/hr Documented by: Insulin Glargine (Lantus) 45 unit SQ BID [facility] Last Admin: 01/30/19 10:11 Dose: 45 units Documented by: Insulin Human Lispro (Humalog) 0 unit SQ ACHS [facility]; Protocol Last Admin: 01/30/19 08:16 Dose: 4 units Documented by: Iron Carb/Multivit/Doctor Phillips/Folic Acid (Multivitamin W/Minerals) 1 tab PO DAILY [facility] Last Admin: 01/30/19 10:13 Dose: 1 tab Documented by: Ondansetron HCl (Zofran) 4 mg IV Q4-6HP PRN PRN Reason: Nausea And Vomiting Last Admin: 01/30/19 08:15 Dose: 4 mg Documented by: Ondansetron HCl (Zofran Odt) 4 mg SL Q4-6HP PRN PRN Reason: nausea or vomiting Polyethylene Glycol (Miralax) 17 gm PO DAILYP PRN PRN Reason: Constipation Potassium Chloride (Klor-Con) 40 meq PO DAILYP PRN PRN Reason: K+ < 3.5 Potassium/Phosphorus/Sodium (Neutra Phos) 1 packet PO BID [facility] Last Admin: 01/30/19 11:07 Dose: Not Given Documented by: Senna/Docusate Sodium (Senna Plus Tablet) 1 tab PO HS [facility] Last Admin: 01/29/19 22:23 Dose: Not Given Documented by: Sodium Chloride (Saline Flush) 10 ml IV Q8 [facility] Last Admin: 01/30/19 05:07 Dose: Not Given Documented by: Trazodone HCl (Desyrel) 100 mg PO HSP PRN PRN Reason: insomnia - ABG Interpretation ABG results: 01/29/19 17:55 ABG Methemoglobin 0 L VBG pH 7.33 VBG pCO2 45.5 VBG pO2 66 H VBG HCO3 23.5 L VBG Total CO2 24.9 L VBG O2 Saturation 85.7 H VBG Base Excess -2.5 L Medical - PN: A/P - Time Spent With Patient Total time spent is greater than 50% in coordination of care (as documented) at patient's floor/unit and/or counseling patient: 25 - 35 minutes (1) Nausea, vomiting and diarrhea Status: Acute Assessment and plan: * Nausea vomiting diarrhea-likely infectious gastroenteritis, continue crystalloids/supportive management. * Mild starvation ketosis -resolved. Continue crystalloids * Right diabetic foot-with great toe amputation 12/18 for osteomyelitis. Reviewed by Audi Green farm equipment technician in ER. Microcomputer Technician Does not feel infected or need further intervention. Wound care consulted * Poorly controlled diabetes continue home regime basal prandial insulin/diabetic education * History of neuropathy continue gabapentin * Low magnesium and phosphorus-old right knee replacement * Tobacco abuse-nicotine patch if indicated * Chronic pain-on hydrocodone * Hypertension-continue amlodipine * Full code * Prophylaxis heparin Plan * Continue conservative management * Wound care consult * Clear liquid diet * Oral IV magnesium/phosphorus replacement * Pre-existing medical condition management as above * Diabetic education/diabetic diet Current Visit: No Medical - PN: Qual - VTE Deep Vein Thrombosis/Pulmonary Embolism Present on Admission: No
[2019-01-30] MEDS ORDERED: DIABETIC MISCELLANE SCH (11:30)
[2019-01-30] MEDS: SENNOSIDES/DOCUSATE SODIUM 1 TAB TABLET PO SCH (20:06)
[2019-01-30] MEDS ORDERED: LOPERAMIDE 2 MG CAPSULE PO PRN (20:31)
[2019-01-30] MEDS: ONDANSETRON 4 MG ODT TABLET SL PRN (21:03)
[2019-01-31] MEDS: 0.9 % SODIUM CHLORIDE 10 ML SYRINGE IV SCH ×2 (04:48→14:18)
[2019-01-31 05:40] LABS: Mean Cell Volume 89.4 fL (80.0-100.0); Mean Corpuscular HGB Conc 33.3 g/dL (31.0-36.0); Platelet Count 364 K/mcL (140-440); RBC 4.13 M/mcL (4.00-5.20); Red Cell Distribution Width 12.9 % (11.5-14.5)
[2019-01-31 05:55] LABS: ALT/SGPT 9 U/l (0-40); Albumin 2.9 gm/dL (3.2-5.2); Albumin/Globulin Ratio 0.8 (1.0-2.3); Alkaline Phosphatase 136 U/L (39-117); Bilirubin,Direct < 0.2 mg/dL (0.0-0.3); Blood Urea Nitrogen 9 mg/dl (6-20); Gamma Glutamyl Transpeptidase 29 U/L (5-36); Uric Acid 5.3 mg/dL (2.5-8.0)
[2019-01-31] MEDS ORDERED: POTASSIUM CHLORIDE 100 MEQ in DEXTROSE 5% IN WATER 1,000 ML IV ONE (06:04)
[2019-01-31] MEDS: ONDANSETRON 4 MG ODT TABLET SL PRN ×2 (07:28→11:27)
[2019-01-31 08:17] LABS: Eosinophils % (Manual) 1 % (0-7); Lymphocytes % 26 % (15-49); Monocytes % (Manual) 3 % (1-12); Platelet Estimate NORMAL (NORMAL); RBC Morphology NORMAL (NORMAL); Segmented Neutrophils % 70 % (38-78)
[2019-01-31] MEDS: INSULIN LISPRO 1 UNIT/0.01 ML UNIT SQ SCH ×3 (08:36→17:00)
[2019-01-31] MEDS: GABAPENTIN 400 MG CAPSULE PO SCH ×2 (09:05→14:17)
[2019-01-31] MEDS: HEPARIN 5,000 UNIT/ML VIAL SQ SCH (09:05)
[2019-01-31] MEDS: NEUTRA PHOS 1 PACKET PO SCH (09:05)
[2019-01-31] MEDS: amLODIPine 5 MG TABLET PO SCH (09:05)
[2019-01-31] MEDS: INSULIN GLARGINE, HUMAN 1 UNIT/0.01 ML SQ SCH (09:06)
[2019-01-31] MEDS: DOCUSATE SODIUM 100 MG CAPSULE PO SCH (09:08)
[2019-01-31] MEDS: DOXYCYCLINE HYCLATE 100 MG TABLET.ORL PO SCH (09:11)
[2019-01-31] MEDS ORDERED: POTASSIUM CHLORIDE 20 MEQ/15 ML ML PO ONE ×2 (09:15→11:00)
[2019-01-31] MEDS: MULTIVIT,THER IRON,CA,FA & MIN 1 TABLET PO SCH (11:28)
--- NOTE | 2019-01-31 11:29 | Internal Med Progress Note ---
Medical - PN: Subj Patient information: Note initiated : 01/31/19 at 11:25 am Service Date, if different from initiated Date: [] Patient: Jeanette Gonzalez a 43 y/o F admitted on 01/29/19 for N/V Since Last Night. Chief Complaint: [] Interval history: Ms. Gonzalez is a 43 year old F with a history of poorly controlled diabetes who presents to the ER with acute onset nausea vomiting diarrhea that started roughly 24-hour prior to presentation. She denies sick contacts. She endorses to multiple episodes of watery diarrhea along with abdominal cramping associated nausea and unable to eat. She endorses depressed associated upper epigastric pain but denies hematemesis Initial workup was consistent with volume depletion/ketosis, patient was started on crystalloids/antiemetics will result in improvement however due to persistent nausea hospitalist service was consulted. CT abdomen was unremarkable for acute process At the time evaluation patient is alert and oriented. She is very distressed from persistent nausea. She denies recent changes in medication. She insists on IV opioids to help with her symptoms. She states that her symptoms abruptly started 24 hours ago and are similar to episode in the past. She also feels that symptoms have been triggered by right foot amputation site infection which was evaluated in the ER by concrete pipe maker who felt no further interventions were needed due to satisfactory healing 01/30- persistent nausea vomiting and diarrhea. On crystalloids/antiemetics. Continue monitoring. Liquid diet as tolerated. Negative workup so far including abdominal CT. White count 12.9. Phosphorus 1.9 magnesium 1.5 01/31-persistent nausea however not able to tolerate oral clears. Patient continues to insist on IV opioids. Explained that narcotic will accentuate nausea and treatment mainstay is crystalloids and bowel rest and along with antiemetics. There is no evidence of intra-abdominal acute process on CT abdomen. Patient however continued to insist for IV opioids. Repeat abdominal imaging/foot imaging ordered. On oral and IV potassium replacement. Mild pyuria on UA. Patient endorses to intolerance to Reglan and Phenergan. Discussed option for GI follow-up as outpatient for upper endoscopy and gastroparesis studies. Patient threatened to leave if she does not receive IV opioids. - Constitutional Vitals: Vital Signs Temp Pulse Resp BP Pulse Ox 97.0 F 82 16 142/80 99 01/31/19 08:01 01/31/19 08:01 01/31/19 08:01 01/31/19 08:01 01/31/19 08:01 Period Temp Pulse Resp BP Sys/Santiago Pulse Ox Last 24 Hr 97.0 F-98.6 F 82-93 10-16 135-164/80-100 94-99 Intake and Output 01/30/19 01/31/19 01/31/19 21:59 05:59 13:59 Intake Total 1120 360 500 Output Total 550 Balance 570 360 500 Weight 146 lb 14.4 oz 146 lb 14.4 oz Patient Weight 02/01/19 05:59 Weight 146 lb 14.4 oz Intake & Output: Intake & Output 01/30/19 01/31/19 01/31/19 21:59 05:59 13:59 Intake Total 1120 360 500 Output Total 550 Balance 570 360 500 Weight 146 lb 14.4 oz 146 lb 14.4 oz Intake: IV 1000 Lactated Ringers 1,000 ml @ 100 1000 mls/hr IV .Q10H CHRISTINA Rx#: [id number] Oral 120 360 500 Output: Urine/Stool Mix 500 Emesis 50 Other: Stool Consistency Liquid Watery Loose General appearance: moderate distress (from nausea) Exam: Alert oriented Nonlabored breathing Anxious Nondistended abdomen however on palpation out of proportion discomfort without radiological or biochemical correlation Medical - PN: Obj Da - Labs CBC & Chem 7: 01/31/19 04:23 01/31/19 04:23 Labs: Abnormal Lab Results 01/31/19 01/31/19 01/30/19 04:23 04:23 04:27 WBC 11.4 H POC Hct MPV 6.9 L Gran # Seg Neutrophils % ABG Methemoglobin VBG pO2 VBG HCO3 VBG Total CO2 VBG O2 Saturation VBG Base Excess Carboxyhemoglobin Total Hemoglobin POC Potassium Potassium 2.5 L* Carbon Dioxide 21 L 19 L POC Total CO2 Anion Gap Glucose 65 L 257 H POC Glucose Calcium 8.1 L 8.0 L POC WB Ioniz Calcium Phosphorus 1.9 L Magnesium 1.5 L Alkaline Phosphatase 136 H 152 H Albumin 2.9 L Globulin Albumin/Globulin Ratio 0.8 L 0.9 L Triglycerides 223 H Beta-Hydroxybutyrate Urine Protein Urine Glucose (UA) Urine Ketones Urine Occult Blood Ur Leukocyte Esterase Urine RBC Urine WBC Ur Squamous Epith Cells Urine Yeast (Budding) 01/30/19 01/30/19 01/29/19 04:27 04:20 17:55 WBC 12.9 H POC Hct MPV 7.3 L Gran # Seg Neutrophils % ABG Methemoglobin 0 L VBG pO2 66 H VBG HCO3 23.5 L VBG Total CO2 24.9 L VBG O2 Saturation 85.7 H VBG Base Excess -2.5 L Carboxyhemoglobin 3.7 H Total Hemoglobin 11.3 L POC Potassium Potassium Carbon Dioxide POC Total CO2 Anion Gap Glucose POC Glucose Calcium POC WB Ioniz Calcium Phosphorus Magnesium Alkaline Phosphatase Albumin Globulin Albumin/Globulin Ratio Triglycerides Beta-Hydroxybutyrate Urine Protein 100 A Urine Glucose (UA) >=500 A Urine Ketones 20 A Urine Occult Blood 0.2 A Ur Leukocyte Esterase 25 A Urine RBC 11 H Urine WBC 38 H Ur Squamous Epith Cells 5 H Urine Yeast (Budding) Mod A 01/29/19 01/29/19 01/29/19 17:55 13:38 13:37 WBC 13.1 H POC Hct 29.0 L MPV Gran # 10.3 H Seg Neutrophils % ABG Methemoglobin VBG pO2 VBG HCO3 VBG Total CO2 VBG O2 Saturation VBG Base Excess Carboxyhemoglobin Total Hemoglobin POC Potassium 3.2 L Potassium Carbon Dioxide POC Total CO2 20 L Anion Gap Glucose POC Glucose 237 H Calcium POC WB Ioniz Calcium 1.03 L Phosphorus Magnesium Alkaline Phosphatase Albumin Globulin Albumin/Globulin Ratio Triglycerides Beta-Hydroxybutyrate 3.32 H Urine Protein Urine Glucose (UA) Urine Ketones Urine Occult Blood Ur Leukocyte Esterase Urine RBC Urine WBC Ur Squamous Epith Cells Urine Yeast (Budding) 01/29/19 01/29/19 13:37 13:37 WBC POC Hct MPV Gran # Seg Neutrophils % 79 H ABG Methemoglobin VBG pO2 VBG HCO3 VBG Total CO2 VBG O2 Saturation VBG Base Excess Carboxyhemoglobin Total Hemoglobin POC Potassium Potassium Carbon Dioxide 20 L POC Total CO2 Anion Gap 18.0 H Glucose 399 H POC Glucose Calcium POC WB Ioniz Calcium Phosphorus Magnesium Alkaline Phosphatase 184 H Albumin Globulin 4.0 H Albumin/Globulin Ratio Triglycerides Beta-Hydroxybutyrate Urine Protein Urine Glucose (UA) Urine Ketones Urine Occult Blood Ur Leukocyte Esterase Urine RBC Urine WBC Ur Squamous Epith Cells Urine Yeast (Budding) Meds: Medications Acetaminophen (Tylenol) 650 mg PO Q4-6HP PRN PRN Reason: PAIN/FEVER > 101 Hydrocodone Bitart/Acetaminophen ([place] 10/325mg) 1 - 2 tab PO TIDP PRN PRN Reason: Pain Amlodipine Besylate (Norvasc) 5 mg PO DAILY [facility] Last Admin: 01/31/19 09:05 Dose: 5 mg Documented by: Cyclobenzaprine HCl (Flexeril) 10 mg PO TIDP PRN PRN Reason: Muscle Pain Dextrose (Dextrose 50%) 0 ml IV UD PRN PRN Reason: Hypoglycemia Diagnostic Test (Pha) (Accu-Chek) 1 each FS ACHS [facility] Last Admin: 01/31/19 07:09 Dose: 1 each Documented by: Docusate Sodium (Colace) 100 mg PO BID [facility] Last Admin: 01/31/19 09:08 Dose: Not Given Documented by: Doxycycline Hyclate (Doxycycline Hyclate) 100 mg PO BID [facility] Last Admin: 01/31/19 09:11 Dose: 100 mg Documented by: Gabapentin (Neurontin) 800 mg PO TID [facility] Last Admin: 01/31/19 09:05 Dose: 800 mg Documented by: Glucose (Insta-Glucose) 15 gm PO PRN PRN PRN Reason: Hypoglycemia Heparin Sodium (Porcine) (Heparin) 5,000 unit SQ Q12 [facility] Last Admin: 01/31/19 09:05 Dose: 5,000 unit Documented by: Hydromorphone HCl (Dilaudid) 0 mg IV Q4HP PRN PRN Reason: PAIN LEVEL > 6 Last Admin: 01/30/19 16:06 Dose: 0.25 mg Documented by: Magnesium Sulfate (Magnesium Sulfate) 2 gm in 50 mls @ 50 mls/hr IV UD PRN PRN Reason: MG = or < 1.7 Last Infusion: 01/30/19 11:14 Dose: Infused Documented by: Potassium Chloride 100 meq/ (Dextrose) 1,050 mls @ 105 mls/hr IV ONCE ONE Stop: 01/31/19 16:03 Last Admin: 01/31/19 07:09 Dose: 105 mls/hr Documented by: Insulin Glargine (Lantus) 45 unit SQ BID [facility] Last Admin: 01/31/19 09:06 Dose: 45 units Documented by: Insulin Human Lispro (Humalog) 0 unit SQ [facility]; Protocol Last Admin: 01/31/19 08:36 Dose: Not Given Documented by: Iron Carb/Multivit/Motorbike Courier/Folic Acid (Multivitamin W/Minerals) 1 tab PO DAILY SC H Last Admin: 01/30/19 10:13 Dose: 1 tab Documented by: Loperamide HCl (Imodium) 2 mg PO PRN PRN PRN Reason: Diarrhea Last Admin: 01/30/19 21:09 Dose: 2 mg Documented by: Ondansetron HCl (Zofran) 4 mg IV Q4-6HP PRN PRN Reason: Nausea And Vomiting Last Admin: 01/30/19 16:09 Dose: 4 mg Documented by: Ondansetron HCl (Zofran Odt) 4 mg SL Q4-6HP PRN PRN Reason: nausea or vomiting Last Admin: 01/31/19 07:28 Dose: 4 mg Documented by: Polyethylene Glycol (Miralax) 17 gm PO DAILYP PRN PRN Reason: Constipation Potassium Chloride (Klor-Con) 40 meq PO DAILYP PRN PRN Reason: K+ < 3.5 Potassium/Phosphorus/Sodium (Neutra Phos) 1 packet PO BID CHRISTINA Last Admin: 01/31/19 09:05 Dose: 1 packet Documented by: Senna/Docusate Sodium (Senna Plus Tablet) 1 tab PO HS CHRISTINA Last Admin: 01/30/19 20:06 Dose: Not Given Documented by: Sodium Chloride (Saline Flush) 10 ml IV Q8 CHRISTINA Last Admin: 01/31/19 04:48 Dose: Not Given Documented by: Trazodone HCl (Desyrel) 100 mg PO HSP PRN PRN Reason: insomnia - ABG Interpretation ABG results: 01/29/19 17:55 ABG Methemoglobin 0 L VBG pH 7.33 VBG pCO2 45.5 VBG pO2 66 H VBG HCO3 23.5 L VBG Total CO2 24.9 L VBG O2 Saturation 85.7 H VBG Base Excess -2.5 L Medical - PN: A/P - Time Spent With Patient Total time spent is greater than 50% in coordination of care (as documented) at patient's floor/unit and/or counseling patient: 25 - 35 minutes (1) Nausea, vomiting and diarrhea Status: Acute Assessment and plan: * Nausea vomiting diarrhea-likely infectious gastroenteritis, continue supportive management crystalloids/antiemetics. Will need outpatient GI follow-up for evaluation of gastroparesis/upper endoscopy. * Hypokalemia-poor oral intake. 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 Reviewed by Audi Green concrete pipe maker in ER. Gas Well Drilling Manager Does not feel infected or need further intervention. Foot the x-ray today * Poorly controlled diabetes continue home regime basal prandial insulin/diabetic education. Lower basal insulin dose until able to take orally * History of neuropathy continue gabapentin * Low magnesium and phosphorus -improving with replacement * Tobacco abuse-nicotine patch if indicated * Chronic pain-on hydrocodone, patient continues to insist fo IV Dilaudid for nausea and pain. Pain appears out of proportion to radiological and biochemical findings without a clear etiology. At this time we will refrain from IV narcotics which will exacerbate nausea and vomiting, a known side effect of opioids * Hypertension-continue amlodipine * Full code * Prophylaxis heparin Plan * Continue crystalloids/antiemetics * Outpatient GI referral * Lower Lantus to 30 twice a day until able to take orally * Wound care consult * Advanced diet as tolerated * Electrolyte replacement * Pre-existing medical condition management as above * Diabetic education/diabetic diet * Discharge once clinically improved Current Visit: No Medical - PN: Qual - VTE Deep Vein Thrombosis/Pulmonary Embolism Present on Admission: No
[2019-01-31] MEDS ORDERED: cefTRIAXone 1 GM VIAL IV SCH (11:30)
--- NOTE | 2019-01-31 11:45 | XRay Report ---
HISTORY: Postop after recent removal of the right first toe FINDINGS: AP and lateral views of the right foot were obtained. The phalanges of the first toe have been surgically resected. There is soft tissue swelling distal to the first metatarsal. The first metatarsal is normal without evidence of fracture, inflammation or demineralization. The remainder of the metatarsals and phalanges are normal. Incidentally noted are small calcaneal spurs. There is mild soft tissue swelling dorsal to the metatarsals. There is no associated erosion or foreign body. IMPRESSION: Normal postoperative changes following recent resection of the right first toe Interpreted and Authenticated by: Asad Reyna 01/31/19
--- NOTE | 2019-01-31 11:48 | XRay Report ---
HISTORY: Abdominal pain with nausea and vomiting FINDINGS: Air is present in multiple loops of nondilated large and small intestine. No air-fluid levels are seen on this supine study. There is no gross free intra-abdominal air. No abnormal soft tissue mass or calcification are identified. There is a solitary fallopian tube clamp in the right side of the pelvis. There are clips in the gallbladder fossa. IMPRESSION: Normal exam Interpreted and Authenticated by: Asad Reyna 01/31/19
[2019-01-31] MEDS ORDERED: CADEXOMER IODINE TOPICAL SCH (13:15)
--- NOTE | 2019-01-31 15:22 | Discharge Summary ---
Medical - DS: Prov Patient information: Note initiated : 01/31/19 at 3:19 pm Service Date, if different from initiated Date: [] Patient: Jeanette Gonzalez 43 y/o F admitted on 01/29/19 for N/V Since Last Night. Chief Complaint: [] Date of admission: 01/29/19 21:34 Discharge date: 01/31/19 Primary care physician: Avelina Mcclellan Consults: 01/29/19 Consult to Physician [CONS] Stat Comment: Consulting Provider: Raman Reilly Reason For Exam: Physician to Consult 01/29/19 15:39 Consult to Physician [CONS] Stat Comment: Consulting Provider: Marcel Green Reason For Exam: Physician to Consult 01/30/19 11:17 Consult to Physician [CONS] Routine Comment: Consulting Provider: Skyler Nichols Reason For Exam: Physician to Consult Medical - DS: Meds - Discharge Medications Active and Home Medications: Home Medications blood sugar diagnostic strips See Dose Instructions .ROUTE .MEDSUPPLY #20 each 05/21/18 [History Confirmed 01/29/19 Last Taken 01/29/19 18:00] blood-glucose meter See Dose Instructions .ROUTE .MEDSUPPLY #1 each 05/21/18 [History Confirmed 01/29/19 Last Taken 01/29/19 18:00] cyclobenzaprine 10 mg tablet 10 mg PO TID PRN 05/21/18 [History Confirmed 01/29/19 Last Taken 01/28/19 10:30] gabapentin 800 mg tablet 800 mg PO TID tab 05/21/18 [History Confirmed 01/29/19 Last Taken 01/28/19 10:30] lancets See Dose Instructions .ROUTE .MEDSUPPLY #50 each 05/21/18 [History Confirmed 01/29/19 Last Taken 01/29/19 18:00] pen needle, diabetic 1 each MISCELLANE ACHS 05/21/18 [History Confirmed 01/29/19 Last Taken 01/28/19 08:00] polyethylene glycol 3350 17 g PO QDAY PRN 05/21/18 [History Confirmed 01/29/19 Last Taken 01/28/19 08:00] hydrocodone 10 mg-acetaminophen 325 mg tablet 1 - 2 tab PO TID PRN tab 05/22/18 [History Confirmed 01/29/19 Last Taken 01/28/19 10:00] traZODone HCL [Trazodone HCl] 100 mg PO HSP PRN 12/18/18 [History Confirmed 01/29/19 Last Taken 01/27/19 21:00] Lantus Solostar 45 units SQ BID #1 12/21/18 [Rx Confirmed 01/29/19 Last Taken 01/28/19 08:00] amLODIPine [Norvasc] 5 mg PO DAILY #30 tab 12/21/18 [Rx Confirmed 01/29/19 Last Taken 01/28/19 08:30] Ondansetron [Zofran ODT] 4 mg SL Q4-6HP PRN #20 tab 01/19/19 [Rx Confirmed 01/29/19 Last Taken Unknown] doxycycline hyclate 100 mg tablet 100 mg PO BID #30 tab 01/22/19 [Rx Confirmed 01/29/19 Last Taken 01/28/19 08:30] Medical - DS: Hosp Hospital course: Discharge diagnosis * Nausea vomiting diarrhea-likely infectious gastroenteritis, clinical improvement noted with supportive management crystalloids/antiemetics. Negative repeat abdominal imaging. Recommend outpatient GI follow-up for evaluation of gastroparesis/upper endoscopy. * Hypokalemia-poor oral intake. Resolved with replacement. 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 Reviewed by Audi Green tier and detonator in ER. Electronics Maintenance Technician Does not feel infected or need further intervention. Repeat foot x-ray no evidence of inf ection/ostial myelitis. * Poorly controlled diabetes continue home regime basal prandial insulin/diabetic education. * History of neuropathy continue gabapentin * Tobacco abuse-nicotine patch if indicated * Chronic pain- patient continues to insist fo IV Dilaudid for nausea and pain. Pain appears out of proportion to radiological and biochemical findings without a clear etiology. Patient will be continued on home medication * Hypertension-continue amlodipine * Full code brief hospital course Ms. Gonzalez is a 43 year old F with a history of poorly controlled diabetes who presents to the ER with acute onset nausea vomiting diarrhea that started roughly 24-hour prior to presentation. She denies sick contacts. She endorses to multiple episodes of watery diarrhea along with abdominal cramping associated nausea and unable to eat. She endorses depressed associated upper epigastric pain but denies hematemesis Initial workup was consistent with volume depletion/ketosis, patient was started on crystalloids/antiemetics will result in improvement however due to persistent nausea hospitalist service was consulted. CT abdomen was unremarkable for acute process At the time evaluation patient is alert and oriented. She is very distressed from persistent nausea. She denies recent changes in medication. She insists on IV opioids to help with her symptoms. She states that her symptoms abruptly started 24 hours ago and are similar to episode in the past. She also feels that symptoms have been triggered by right foot amputation site infection which was evaluated in the ER by tier and detonator who felt no further interventions were needed due to satisfactory healing 01/30- persistent nausea vomiting and diarrhea. On crystalloids/antiemetics. Continue monitoring. Liquid diet as tolerated. Negative workup so far including abdominal CT. White count 12.9. Phosphorus 1.9 magnesium 1.5 01/31-persistent nausea however not able to tolerate oral clears. Patient continues to insist on IV opioids. Explained that narcotic will accentuate nausea and treatment mainstay is crystalloids and bowel rest and along with antiemetics. There is no evidence of intra-abdominal acute process on CT a bdomen. Patient however continued to insist for IV opioids. Repeat abdominal imaging/foot imaging ordered. On oral and IV potassium replacement. Mild pyuria on UA. Patient endorses to intolerance to Reglan and Phenergan. Discussed option for GI follow-up as outpatient for upper endoscopy and gastroparesis studies. Patient threatened to leave if she does not receive IV opioids. Repeat abdominal and foot imaging unremarkable. Patient feeling a lot better tolerating diet and requesting discharge. Advised to follow with GI as outpatient for upper endoscopy in case of persistent nausea for evaluation of gastroparesis. Continue follow-up with primary care physician Discharge diagnosis: . - Time Spent with Patient Total time spent providing and/or coordinating discharge services: Greater than 30 minutes Medical - DS: Exam - Constitutional Vitals: Vital Signs Temp Pulse Resp BP Pulse Ox 01/31/19 12:01 98.3 F 93 H 16 148/86 98 01/31/19 08:01 97.0 F 82 16 142/80 99 01/31/19 04:02 97.1 F 87 16 150/80 98 01/30/19 23:49 97.7 F 91 H 12 160/100 97 01/30/19 19:17 98.6 F 90 10 L 159/97 97 01/30/19 15:27 97.4 F 89 12 164/96 94 Intake and Output 01/31/19 01/31/19 01/31/19 05:59 13:59 21:59 Intake Total 360 500 Output Total 1500 Balance 360 -1000 Intake: Oral 360 500 Output: Void Amount 1100 Emesis 400 Other: Meal Lunch Percent of Meal Consumed Refused Weight 146 lb 14.4 oz Patient Weight 02/01/19 05:59 Weight 146 lb 14.4 oz Medical - DS: Data Labs on day of discharge: Labs from last 24 hours 01/31/19 01/31/19 01/31/19 12:10 04:23 04:23 WBC 11.4 H RBC 4.13 Hgb 12.3 Hct 36.9 MCV 89.4 MCH 29.8 MCHC 33.3 RDW 12.9 Plt Count 364 MPV 6.9 L Total Counted 100 Seg Neutrophils % 70 Band Neutrophils % Not Reportable Lymphocytes % 26 Monocytes % (Manual) 3 Eosinophils % (Manual) 1 Platelet Estimate Normal RBC Morphology Normal Sodium 138 Potassium 3.3 2.5 L* Chloride 103 Carbon Dioxide 21 L Anion Gap 14.0 BUN 9 Creatinine 0.7 GFR Calculation 106 Glucose 65 L Uric Acid 5.3 Calcium 8.1 L Phosphorus 2.8 Magnesium 1.8 Total Bilirubin 0.3 Direct Bilirubin < 0.2 GGT 29 AST 17 ALT 9 Alkaline Phosphatase 136 H Lactate Dehydrogenase 173 Total Protein 6.4 Albumin 2.9 L Globulin 3.5 Albumin/Globulin Ratio 0.8 L Triglycerides 145 Preliminary micro results at discharge 01/29/19 14:44 Blood Culture - Preliminary Blood 01/29/19 14:48 Blood Culture - Preliminary Blood Medical - DS: A/P - Patient/Caregiver Discharge Instructions Activity: increase activity as tolerated Diet: Consistent Carbohydrate Additional Instructions: Increase oral fluids and rest. Return to ER if worsening abdominal pain nausea vomiting Make sure you are checking your blood sugars as directed daily and taking her medications as prescribed. Recheck with your primary care provider within the next 24 to 48 hours for follow-up or return to the ER for worsening signs and symptoms or other c oncerns. Follow-up with gastroenterology for upper endoscopy for evaluation of recurrent nausea/gastroparesis - Problem Maintenance (1) Nausea, vomiting and diarrhea Status: Acute - Follow up Plan Follow up with: Avelina Mcclellan MD [Primary Care Provider] - Marcel Green DPM [Physician] - Disposition: Home, Self-Care Prognosis: Fair Rehab Potential: Fair I certify that the patient requires SNF services: No Overall status at discharge: patient is progressing back to baseline Medical - DS: Qual - VTE Deep Vein Thrombosis/Pulmonary Embolism Present on Admission: No
== END 2019-01-31 17:15 | disposition home or self-care (01) ==
LOC: ED 12:45 → MEDSUR 12:45
PROVIDERS: ADMIT Internal Medicine; ATTEND Internal Medicine

== ENCOUNTER 2019-02-28 23:16 | Inpatient (IN) ==
[2019-02-28] MEDS ORDERED: IOPAMIDOL 100 ML BOTTLE IV ONE (23:17)
[2019-02-28] MEDS ORDERED: 0.9 % SODIUM CHLORIDE 1,000 ML IV ONE (23:54)
[2019-03-01 00:43] LABS: Basophils # (Auto) 0.1 K/mcL (0.0-0.3); Basophils % (Auto) 0.6 % (0.0-2.0); Eosinophils # (Auto) 0.3 K/mcL (0.0-0.7); Eosinophils % (Auto) 2.1 % (0.0-7.0); Granulocytes % (Auto) 68.7 % (38.0-78.0); Lymphocytes # (Auto) 3.6 K/mcL (1.5-4.8); Lymphocytes % (Auto) 23.8 % (15.5-49.0); Mean Corpuscular HGB Conc 33.4 g/dL (31.0-36.0); Monocytes # (Auto) 0.7 K/mcL (0.1-0.9); Monocytes % (Auto) 4.8 % (1.0-12.0); Platelet Count 437 K/mcL (140-440); RBC 3.92 M/mcL (4.00-5.20); Red Cell Distribution Width 12.2 % (11.5-14.5)
[2019-03-01] MEDS ORDERED: INSULIN REGULAR, HUMAN 1 UNIT/0.01 ML UNIT SQ ONE (00:43)
--- NOTE | 2019-03-01 00:58 | Emergency Department Note ---
Lower Extremity Injury HPI - General Chief Complaint: Extremity Injury, Lower Stated Complaint: left leg amputee pain Time Seen by Provider: 02/28/19 23:38 Source: patient Mode of arrival: ambulatory Limitations: no limitations - History of Present Illness HPI Narrative: Patient was seen 4 days ago for an area on her left BKA history of redness and pain to her stump and ultrasound was performed there which shows a possibility of some fluid collection she was started on antibiotics and was treated with sulfa trimethoprim DS. She has had poor compliance with her diabetes control last blood sugars were in the 400s but the CO2 levels were normal.Significant other states that she is been drinking wine today temperature is 97.3 the pulse is 96 respirations are 18 blood pressure 174/100 pulse ox is 99% - Related Data Home Medications Medication Instructions Recorded Confirmed blood sugar diagnostic strips See Dose Instructions .ROUTE 05/21/18 01/29/19 .MEDSUPPLY #20 each blood-glucose meter See Dose Instructions .ROUTE 05/21/18 01/29/19 .MEDSUPPLY #1 each cyclobenzaprine 10 mg tablet 10 mg PO TID PRN 05/21/18 02/25/19 gabapentin 800 mg tablet 800 mg PO TID tab 05/21/18 02/25/19 lancets See Dose Instructions .ROUTE 05/21/18 01/29/19 .MEDSUPPLY #50 each pen needle, diabetic 1 each MISCELLANE ACHS 05/21/18 01/29/19 polyethylene glycol 3350 17 g PO QDAY PRN 05/21/18 02/25/19 traZODone HCL [Trazodone HCl] 100 mg PO HSP PRN 12/18/18 01/29/19 traMADol [Ultram] 2 tab Q6 02/25/19 02/25/19 Previous Rx's Medication Instructions Recorded Lantus Solostar 45 units SQ BID #1 12/21/18 amLODIPine [Norvasc] 5 mg PO DAILY #30 tab 12/21/18 Ondansetron [Zofran ODT] 4 mg SL Q4-6HP PRN #20 tab 01/19/19 doxycycline hyclate 100 mg tablet 100 mg PO BID #30 tab 01/22/19 HYDROcodone/APAP 5/325MG [[place] 1 tab PO Q4HP PRN #12 tab 02/25/19 5-325Mg] Prochlorperazine [Compazine] 10 mg PO Q8HP PRN #10 tab 02/25/19 Sulfamethoxazole/Trimethoprim 1 tab PO BID #20 tab 02/25/19 [Bactrim Ds] Allergies Allergy/AdvReac Type Severity Reaction Status Date / Time vancomycin Allergy Severe Anaphylaxis Verified 02/28/19 23:20 adhesive tape Allergy Intermediate rash and Verified 02/28/19 23:20 allergy NSAIDS (Non-Steroidal Allergy Intermediate Rash Verified 02/28/19 23:20 Anti-Inflamma Amoxicillin AdvReac Mild Nausea Verified 02/28/19 23:20 escitalopram [From Lexapro] AdvReac Mild Diarrhea Verified 02/28/19 23:20 fentanyl AdvReac Mild halucinations Verified 02/28/19 23:20 and confusion fluoxetine [From Prozac] AdvReac Mild Nausea Verified 02/28/19 23:20 ketorolac [From Toradol] AdvReac Mild Vomiting Verified 02/28/19 23:20 metformin AdvReac Mild Nausea Verified 02/28/19 23:20 methocarbamol AdvReac Mild Nausea Verified 02/28/19 23:20 metoclopramide [From Reglan] AdvReac Mild Shakiness Verified 02/28/19 23:20 morphine AdvReac Mild Headache Verified 02/28/19 23:20 Paroxetine [From Paxil] AdvReac Mild Nausea Verified 02/28/19 23:20 promethazine [From Phenergan] AdvReac Mild Shakiness Verified 02/28/19 23:20 Sulfa (Sulfonamide AdvReac Mild Nausea Verified 02/28/19 23:20 Antibiotics) Review of Systems All systems ED: reviewed and negative except as stated. 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) [facility] living (current) use of insulin (Chronic) Diabetic peripheral neuropathy (Chronic) Benign essential hypertension (Chronic) CKD (chronic kidney disease) stage 2, GFR 60-89 ml/min (Chronic) Hyperlipidemia (Chronic) Leg pain, left (Chronic) Diabetic foot ulcer (Chronic) Osteomyelitis of toe of right foot (Chronic) Depression, major, recurrent, moderate (Chronic) Tachycardia (Chronic) Genital herpes (Chronic) Hypothyroidism (Chronic) Noncompliance with medication regimen (Chronic) Ex-smoker (Chronic) DDD (degenerative disc disease), lumbosacral (Chronic) Lumbar back pain (Chronic) Chronic back pain (Chronic) Elevated hemoglobin A1c (Chronic) Hyponatremia (Acute) Elevated sed rate (Chronic) Hepatomegaly (Chronic) Past Surgical History (Last Reviewed 01/21/19 @ 14:27 by Ana Abebe RN) History of appendectomy (Chronic) History of cholecystectomy (Chronic) History of incision and drainage (Chronic 01/01/18) History of partial hysterectomy (Chronic) History of tubal ligation (Chronic) 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) Status post right foot surgery (Chronic) Family History (Last Reviewed 01/21/19 @ 14:27 by Ana Abebe RN) Mother Diabetes Father Diabetes Brother Diabetes Sister Diabetes Medical history: Reports: DM, kidney stones, other Psychiatric history: Reports: depression, prior suicide attempt [employer] history: Reports: bilateral tubal ligation Surgical history ED: Reports: appendectomy, cholecystectomy, hysterectomy, orthopedic, other, other - Social History smoking status: Never smoker Alcohol use: Reports: None Drug use: Reports: none Physical Exam Limitations: no limitations General appearance: alert Head: atraumatic Eye: Present: normal appearance, PERRL ENT: normal exam, normal oropharynx Neck: Present: normal inspection, full ROM Chest: Present: normal inspection, symmetric chest wall rise. Absent: tenderness Respiratory: Present: normal lung sounds bilaterally. Absent: respiratory distress, rales/crackles, wheezes Cardiovascular: Present: regular rate, normal rhythm. Absent: bradycardia, tachycardia Abdominal: Present: soft. Absent: distention, tenderness, guarding, rebound Extremities: Present: tenderness Hip/Pelvis: Present: normal inspection, full ROM Upper leg: Present: normal inspection, full ROM Knee: Present: normal inspection, full ROM Lower leg: Present: tenderness (Is over the left stump on the BKA) Ankle: Present: normal inspection, full ROM. Absent: tenderness Back: Present: normal inspection Neurological: Present: alert, oriented X3, CN II-XII intact Psychiatric: Present: normal affect, normal mood Skin: Present: warm, cool, dry Course Vital Signs Temperature 97.3 F 02/28/19 23:17 Pulse Rate 96 H 02/28/19 23:17 Respiratory Rate 18 02/28/19 23:17 Blood Pressure 174/100 02/28/19 23:17 Pulse Oximetry (%) 99 02/28/19 23:17 Temperature 97.3 F 02/28/19 23:17 Pulse Rate 92 H 03/01/19 00:51 Respiratory Rate 18 03/01/19 00:51 Blood Pressure 152/86 03/01/19 00:51 Pulse Oximetry (%) 98 03/01/19 00:51 Extremity Injury, Lower - MDM Narrative Medical decision making narrative: WBC is 13,200 to hemoglobin 13.3 and hematocrit 33.7. WSR is elevated at 61 lactic acid is 1.1 was 131 the potassium 4.3 CO2 is 22 the BUN is 23 and creatinine 0.8 the glucose is 496 C-reactive protein is 1.3. She given insulin via sliding scale. CT of the left stump shows possible osteomyelitis and possible abscess plan patient to be admitted will be started on daptomycin as she is allergic to vancomycin - Lab Data Result diagrams: 02/28/19 23:45 Lab Results 02/28/19 02/28/19 02/28/19 Range/Units 23:45 23:45 23:45 WBC 15.2 H (4.5-11.0) K/mcL RBC 3.92 L (4.00-5.20) M/mcL Hgb 11.3 L (12.0-15.0) g/dL Hct 33.7 L (36.0-48.0) % POC Hct 35.0 L (36.0-48.0) % MCV 86.0 (80.0-100.0) fL MCH 28.8 (26.0-34.0) pg MCHC 33.4 (31.0-36.0) g/dL RDW 12.2 (11.5-14.5) % Plt Count 437 (140-440) K/mcL MPV 7.0 L (7.4-10.4) fL Gran % 68.7 (38.0-78.0) % Lymph % (Auto) 23.8 (15.5-49.0) % [place] % (Auto) 4.8 (1.0-12.0) % Eos % (Auto) 2.1 (0.0-7.0) % Baso % (Auto) 0.6 (0.0-2.0) % Gran # 10.5 H (1.8-8.0) K/mcL Lymph # (Auto) 3.6 (1.5-4.8) K/mcL [place] # (Auto) 0.7 (0.1-0.9) K/mcL Eos # (Auto) 0.3 (0.0-0.7) K/mcL Baso # (Auto) 0.1 (0.0-0.3) K/mcL ESR (0-20) mm/hr VBG Lactic Acid (0.5-2.0) mmol/L POC Sodium 131 L (133-145) mmol/L POC Potassium 4.3 (3.3-5.1) mmol/L POC Chloride 99 (96-108) mmol/L POC Total CO2 22 (22-30) mmol/L POC BUN 23 H (6-20) mg/dl POC Creatinine 0.8 (0.6-1.1) mg/dl POC Glucose 496 H* (70-105) mg/dL POC WB Ioniz Calcium 1.12 L (1.16-1.32) mmol/L C-Reactive Protein 1.3 H (0.0-0.8) mg/dl 03/01/19 03/01/19 Range/Units 01:14 01:14 WBC (4.5-11.0) K/mcL RBC (4.00-5.20) M/mcL Hgb (12.0-15.0) g/dL Hct (36.0-48.0) % POC Hct (36.0-48.0) % MCV (80.0-100.0) fL MCH (26.0-34.0) pg MCHC (31.0-36.0) g/dL RDW (11.5-14.5) % Plt Count (140-440) K/mcL MPV (7.4-10.4) fL Gran % (38.0-78.0) % Lymph % (Auto) (15.5-49.0) % [place] % (Auto) (1.0-12.0) % Eos % (Auto) (0.0-7.0) % Baso % (Auto) (0.0-2.0) % Gran # (1.8-8.0) K/mcL Lymph # (Auto) (1.5-4.8) K/mcL [place] # (Auto) (0.1-0.9) K/mcL Eos # (Auto) (0.0-0.7) K/mcL Baso # (Auto) (0.0-0.3) K/mcL ESR 61 H (0-20) mm/hr VBG Lactic Acid 1.1 (0.5-2.0) mmol/L POC Sodium (133-145) mmol/L POC Potassium (3.3-5.1) mmol/L POC Chloride (96-108) mmol/L POC Total CO2 (22-30) mmol/L POC BUN (6-20) mg/dl POC Creatinine (0.6-1.1) mg/dl POC Glucose (70-105) mg/dL POC WB Ioniz Calcium (1.16-1.32) mmol/L C-Reactive Protein (0.0-0.8) mg/dl Disposition Pt seen by CAT OPERATOR/PA only: No Clinical Impression: Osteomyelitis Qualifiers: Osteomyelitis location: tibia Laterality: left Disposition: Xfer As Inpt ([facility]) Condition: Fair Instructions: Osteomyelitis (ED) Time of Disposition: 02:27
[2019-03-01] MEDS ORDERED: 0.9 % SODIUM CHLORIDE 1,000 ML IV ONE (01:53)
[2019-03-01] MEDS ORDERED: DAPTOmycin 500 MG VIAL IV SCH ×2 (02:30→18:00)
[2019-03-01] MEDS: HYDROmorphone 2 MG/ML VIAL IV PRN ×4 (02:45→13:41)
[2019-03-01] MEDS ORDERED: ONDANSETRON 4 MG/2 ML VIAL IV PRN ×3 (03:10→08:05)
[2019-03-01] MEDS ORDERED: 0.9 % SODIUM CHLORIDE 1,000 ML IV SCH ×2 (03:15→08:05)
[2019-03-01 03:56] LABS: Appearance,Urine CLEAR; Bacteria,Urine 0 /hpf (0); Bilirubin,Urine NEG (NEG); Color,Urine COLORLESS; Glucose,Urine (UA) >=500 mg/dL (NEG); Leukocyte Esterase,Urine NEG /uL (NEG); Protein,Urine 30 mg/dL (NEG); Specific Gravity,Urine 1.022 (1.000-1.035); Urine Blood 0.2 mg/dL (<0.03); Urine RBC 15 /hpf (0-1); Urine Squamous Epithelial Cell 4 /hpf (0-4); Urine WBC 2 /hpf (0-4); Urobilinogen,Urine NEG (NEG)
[2019-03-01] MEDS ORDERED: DEXTROSE 31 GM ORAL.SUSP PO PRN ×2 (04:33→08:05)
[2019-03-01] MEDS ORDERED: DEXTROSE 50% 50 ML VIAL IV PRN ×2 (04:33→08:05)
--- NOTE | 2019-03-01 05:57 | Cat Scan Report ---
CLINICAL INFORMATION: Status post below the knee left amputation, 06/2018. Patient presents with pain. She is currently on antibiotics TECHNIQUE: Thin section axial images through the left lower extremity. Sagittal and coronal reformatted images. 80 mL contrast material injected COMPARISON: No plain film examination available for comparison. FINDINGS: There is amorphous soft tissue density within the distal stump. There is low density abnormality surrounding the tibia. This could be a small abscess or phlegmon. This is not well circumscribed and difficult to accurately measure. It measures approximately 2.5 cm in maximum dimension There are no gas bubbles. Cortex is irregular and slightly "moth eaten". Osteomyelitis is possible. MRI would be helpful for further evaluation if clinically indicated. The left lower extremity proximal to the proximal tibia is negative. No other soft tissue fluid collection or mass. Left superficial femoral artery opacifies normally without occlusion or stenosis. Left popliteal artery is patent and appears normal. Anterior tibial artery and posterior tibial artery are opacified to the distal tibial remnant but cannot be followed all the way to the skin surface of the stump. This examination was initially interpreted by [facility] IMPRESSION: 1. Poorly defined soft tissue low density at the stump. Small abscess or phlegmon is possible 2. Distal portion of the tibial remnant has a somewhat moth-eaten appearance with possible cortical destruction. Osteomyelitis is possible Interpreted and Authenticated by: Jeremy Figueredo 03/01/19
[2019-03-01] MEDS ORDERED: INSULIN NPH, HUMAN 1 UNIT/0.01 ML UNIT SQ SCH (07:30)
[2019-03-01] MEDS ORDERED: INSULIN LISPRO 1 UNIT/0.01 ML UNIT SQ SCH (07:30)
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
[2019-03-01] MEDS ORDERED: HYDROmorphone 2 MG/ML VIAL IV PRN ×3 (07:55→20:04)
[2019-03-01] MEDS ORDERED: MAGNESIUM SULFATE 2 GM/50 ML BAG IV PRN (08:05)
[2019-03-01] MEDS ORDERED: CYCLOBENZAPRINE 10 MG TABLET PO PRN (08:05)
[2019-03-01] MEDS ORDERED: ACETAMINOPHEN 325 MG TABLET PO PRN (08:05)
[2019-03-01] MEDS ORDERED: PROCHLORPERAZINE 10 MG TABLET PO PRN (08:05)
[2019-03-01] MEDS ORDERED: ACETAMINOPHEN 1,000 MG/100 ML BOTTLE IV PRN (08:05)
[2019-03-01] MEDS ORDERED: ONDANSETRON 4 MG ODT TABLET SL PRN (08:05)
[2019-03-01] MEDS ORDERED: POTASSIUM CHLORIDE 20 MEQ PACKET PO PRN (08:05)
[2019-03-01] MEDS ORDERED: POLYETHYLENE GLYCOL 3350 17 GM PACKET PO PRN (08:13)
[2019-03-01] MEDS ORDERED: MULTIVIT,THER IRON,CA,FA & MIN 1 TABLET PO SCH (09:00)
[2019-03-01] MEDS ORDERED: amLODIPine 5 MG TABLET PO SCH (09:00)
[2019-03-01] MEDS ORDERED: DOCUSATE SODIUM 100 MG CAPSULE PO SCH (09:00)
[2019-03-01] MEDS ORDERED: HEPARIN 5,000 UNIT/ML VIAL SQ SCH (09:00)
[2019-03-01] MEDS ORDERED: INSULIN GLARGINE, HUMAN 1 UNIT/0.01 ML SQ SCH ×2 (09:00→10:00)
[2019-03-01 09:11] LABS: C-Reactive Protein 1.3 mg/dl (0.0-0.8)
[2019-03-01] MEDS: GABAPENTIN 400 MG CAPSULE PO SCH ×2 (09:50→14:56)
--- NOTE | 2019-03-01 10:16 | Transfer Summary ---
Transfer Discharge Sum: Prov Patient information: Note initiated : 03/01/19 at 10:12 am Service Date, if different from initiated Date: [] Patient: Jeanette Gonzalez 43 y/o F admitted on 03/01/19 for Left Leg Amputee Pain. Chief Complaint: [] Date of admission: 03/01/19 04:07 Discharge Date: 03/01/19 Consults: 03/01/19 08:05 Consult to Physician [CONS] Routine Comment: Consulting Provider: Skyler Nichols Reason For Exam: Physician to Consult [facility] Sum: Diag - Discharge Diagnosis (1) Osteomyelitis due to type 2 diabetes mellitus Status: Acute Transfer Discharge Sum: Med - Medications Active and Home Medications: Home Medications blood sugar diagnostic strips See Dose Instructions .ROUTE .MEDSUPPLY #20 each 05/21/18 [History Confirmed 03/01/19] blood-glucose meter See Dose Instructions .ROUTE .MEDSUPPLY #1 each 05/21/18 [History Confirmed 03/01/19] cyclobenzaprine 10 mg tablet 10 mg PO TID PRN 05/21/18 [History Confirmed 03/01/19] gabapentin 800 mg tablet 800 mg PO TID tab 05/21/18 [History Confirmed 03/01/19] lancets See Dose Instructions .ROUTE .MEDSUPPLY #50 each 05/21/18 [History Confirmed 03/01/19] pen needle, diabetic 1 each MISCELLANE ACHS 05/21/18 [History Confirmed 9] polyethylene glycol 3350 17 g PO QDAY PRN 05/21/18 [History Confirmed 03/01/19] traZODone HCL [Trazodone HCl] 100 mg PO HSP PRN 12/18/18 [History Confirmed 03/01/19] Lantus Solostar 45 units SQ BID #1 12/21/18 [Rx Confirmed 03/01/19] amLODIPine [Norvasc] 5 mg PO DAILY #30 tab 12/21/18 [Rx Confirmed 03/01/19] Ondansetron [Zofran ODT] 4 mg SL Q4-6HP PRN #20 tab 01/19/19 [Rx Confirmed 03/01/19] HYDROcodone/APAP 5/325MG [Madison 5-325Mg] 1 tab PO Q4HP PRN #12 tab 02/25/19 [Rx Confirmed 03/01/19] Prochlorperazine [Compazine] 10 mg PO Q8HP PRN #10 tab 02/25/19 [Rx Confirmed 03/01/19] Insulin Lispro [Humalog] 1 unit SQ DAILY 03/01/19 [History Confirmed 03/01/19] Active Medications Acetaminophen (Tylenol) 650 mg PO Q4-6HP PRN PRN Reason: PAIN/FEVER > 101 Hydrocodone Bitart/Acetaminophen (Madison 5/325mg) 1 tab PO Q4HP PRN PRN Reason: Pain Amlodipine Besylate (Norvasc) 5 mg PO DAILY [facility] Last Admin: 03/01/19 09:51 Dose: 5 mg Documented by: Cyclobenzaprine HCl (Flexeril) 10 mg PO TIDP PRN PRN Reason: Muscle Pain Dextrose (Dextrose 50%) 0 ml IV UD PRN PRN Reason: Hypoglycemia Diagnostic Test (Pha) (Accu-Chek) 1 each FS [facility] Docusate Sodium (Colace) 100 mg PO BID [facility] Last Admin: 03/01/19 09:51 Dose: Not Given Documented by: Gabapentin (Neurontin) 800 mg PO TID [facility] Last Admin: 03/01/19 09:50 Dose: 800 mg Documented by: Glucose (Insta-Glucose) 15 gm PO PRN PRN PRN Reason: Hypoglycemia Heparin Sodium (Porcine) (Heparin) 5,000 unit SQ Q12 [facility] Last Admin: 03/01/19 09:51 Dose: 5,000 unit Documented by: Hydromorphone HCl (Dilaudid) 0.25 mg IV Q3HP PRN PRN Reason: PAIN LEVEL > 6 Stop: 03/01/19 16:03 Hydromorphone HCl (Dilaudid) 0.25 mg IV Q4HP PRN PRN Reason: PAIN LEVEL > 6 Magnesium Sulfate (Magnesium Sulfate) 2 gm in 50 mls @ 50 mls/hr IV UD PRN PRN Reason: MG = or < 1.7 Sodium Chloride (Sodium Chloride 0.9%) 1,000 mls @ 50 mls/hr IV .Q20H [facility] Stop: 03/03/19 20:04 Last Admin: 03/01/19 08:36 Dose: Not Given Documented by: Acetaminophen (Ofirmev) 1,000 mg in 100 mls @ 200 mls/hr IV Q6HP PRN PRN Reason: PAIN/FEVER > 101 Insulin Glargine (Lantus) 23 unit SQ BID [facility] Last Admin: 03/01/19 10:07 Dose: 23 units Documented by: Insulin Human Lispro (Humalog) 0 unit SQ ACHS [facility]; Protocol Iron Carb/Multivit/Sevier/Folic Acid (Multivitamin W/Minerals) 1 tab PO DAILY [facility] Last Admin: 03/01/19 09:50 Dose: 1 tab Documented by: Ondansetron HCl (Zofran) 4 mg IV Q4-6HP PRN PRN Reason: Nausea And Vomiting Ondansetron HCl (Zofran Odt) 4 mg SL Q4-6HP PRN PRN Reason: nausea or vomiting Polyethylene Glycol (Miralax) 17 gm PO DAILYP PRN PRN Reason: Constipation Potassium Chloride (Klor-Con) 40 meq PO DAILYP PRN PRN Reason: K+ < 3.5 Prochlorperazine (Compazine) 10 mg PO Q8HP PRN PRN Reason: Nausea Senna/Docusate Sodium (Senna Plus Tablet) 1 tab PO HS [facility] Sodium Chloride (Saline Flush) 10 ml IV Q8 [facility] Trazodone HCl (Desyrel) 100 mg PO HSP PRN PRN Reason: insomnia Transfer Discharge Sum: Hosp Hospital course: Transfer diagnoses * Left BKA stump osteomyelitis in the setting of diabetes, antibiotics were discontinued based on ID recommendations. Wound care physician recommends transfer to primary surgeon at [place] for abscess drainage/bone biopsy and surgical intervention. * Stump abscess- patient received 1 dose of antibiotic. Surgery recommends transfer to tertiary Center in light of underlying complexity. * Poorly controlled diabetes continue basal prandial insulin/diabetic education. * History of neuropathy continue gabapentin * Tobacco dependence -patient at this time refusing nicotine patch * Chronic pain- patient carries a history of seeking pain medications. Continue home medications/as needed Dilaudid for pain management * Hypertension- home dose amlodipine Brief hospital course Ms. Gonzalez is a 43 year old F with poorly controlled type 2 diabetes/history of diabetic foot ulceration and status post left BKA who presents to the ER after approximately 2 weeks onset of increasing swelling tenderness and pain at the BKA stump. She was evaluated at the [facility] clinic and was prescribed doxycycli ne however symptoms continued to get worse with increasing pain and difficulty weightbearing. She was advised not to bear weight and hasn't done so for the last 10 days but did not notice any improvement. She denies associated fever or chills but endorses to increasing pain and swelling and redness. She was subsequently evaluated in the ER on the sixth and was started on Bactrim. Over the ensuing 3 days patient noticed fluctuance at the stump along with increased swelling extending above the left BKA stump without actual drainage. She again presents to the ER and initial workup was consistent with osteomyelitis/phlegmon on CT/WBC 15,000. Hospitalist service was consulted and patient received first dose of daptomycin. At the time evaluation patient is alert and oriented. She was able to answer most the question in endorses history as above. She also complains of left arm reddish rash but denies headache photophobia, other joint pain shaking chills or sweats. She further denies trauma to the stump. She continues to smoke with last cigarette therefore yesterday. 03/01- 10:10 AM. Case was discussed with ID specialist/wound care Dr. Nichols. Surgeon of the recommendation that patient is too complex to be managed at [facility] and since patient has had prior amputation at [place] would require abscess drainage/further bone biopsy/possible debridement surgery is to be performed by primary surgeon. On the recommendations of wound care physician [facility] Dr. Morgan was contacted who graciously accepted this patient for further care and management. Patient will be transferred via ground ambulance. MRI was not performed as patient cites claustrophobia. Daptomycin was discontinued based on ID recommendation until abscess drainage and cultures coul d be obtained - Time Spent with Patient Total time spent providing and/or coordinating transfer services: Transfer Discharge Sum: Exam - Constitutional Vitals: Vital Signs Temp Pulse Pulse Resp BP BP Pulse Ox 03/01/19 06:45 97.6 F 88 16 144/91 99 03/01/19 04:20 97.9 F 91 H 16 152/91 100 03/01/19 03:17 92 H 16 172/97 99 03/01/19 02:46 86 18 178/109 98 03/01/19 00:51 92 H 18 152/86 98 02/28/19 23:17 97.3 F 96 H 18 174/100 99 Intake and Output 02/28/19 03/01/19 03/01/19 21:59 05:59 13:59 Intake Total 1999 355 Balance 1999 355 Intake: IV 1999 355 Sodium Chloride 0.9% 1,000 ml @ 1999 355 100 mls/hr IV .Q10H [facility] Rx#: [id number] Other: Weight 155 lb Transfer Discharge Sum: Data Procedures and tests throughout hospitalization: Transfer Discharge Sum: A/P - Problem Maintenance (1) Osteomyelitis due to type 2 diabetes mellitus Status: Acute - Plan Functional capacity at transfer: bed bound Overall status at transfer: patient is not back to baseline Disposition: [facility]
[2019-03-01] MEDS: INSULIN LISPRO 1 UNIT/0.01 ML UNIT SQ SCH ×2 (11:49→16:53)
[2019-03-01] MEDS: HYDROcodone/APAP 5/325MG TABLET PO PRN ×2 (12:02→16:52)
[2019-03-01] MEDS ORDERED: 0.9 % SODIUM CHLORIDE 10 ML SYRINGE IV SCH (14:00)
--- NOTE | 2019-03-01 16:11 | General Surgery Consult Note ---
History of Present Illness Patient information: Note initiated : 03/01/19 at 4:02 pm Service Date, if different from initiated Date: [] Patient: Jeanette Gonzalez 43 y/o F admitted on 03/01/19 for Left Leg Amputee Pain. Chief Complaint: [] Consult date: 03/01/19 Requesting physician: Raman Reilly (Wound Care evaluation.) History of present illness: I saw this patient early this morning along with Dorene RN, In Patient wound care nurse. I know this patient from before. I discussed her care at length with Dr. Reilly, hospitalist physician. Patient was admitted with evolving SIRS, metabolic abnormalities, uncontrolled diabetes and severe excruciating pain at site of LEFT BKA stump. Soft tissue swelling, pitting edema, warmth and extreme tenderness at site of st ump. Very tender to touch. NO OPEN SKIN WOUND of stump. Open Grade 1 epithelial clean wound Right medial ankle area. NOT the cause of her present admission. I went over the blood works, imaging studies and discussed them with patient, nursing staff and Dr. Reilly. GIVEN THE SEVERITY AND COMPLEXITY OF HER PRESENTATION AND GRAVITY OF HER PRE EXISTING CO-MORBID CONDITIONS, RECOMMEND TRANSFER TO HIGHER LEVEL OF CARE IN [place]. Patient at high risk for revision of her LEFT BKA to AKA. Any help given to this patient is appreciated. Medications and Allergies Home Medications Medication Instructions Recorded Confirmed Type blood sugar diagnostic strips See Dose Instructions .ROUTE 05/21/18 03/01/19 History .MEDSUPPLY #20 each blood-glucose meter See Dose Instructions .ROUTE 05/21/18 03/01/19 History .MEDSUPPLY #1 each cyclobenzaprine 10 mg tablet 10 mg PO TID PRN 05/21/18 03/01/19 History gabapentin 800 mg tablet 800 mg PO TID tab 05/21/18 03/01/19 History lancets See Dose Instructions .ROUTE 05/21/18 03/01/19 History .MEDSUPPLY #50 each pen needle, diabetic 1 each MISCELLANE ACHS 05/21/18 03/01/19 History polyethylene glycol 3350 17 g PO QDAY PRN 05/21/18 03/01/19 History traZODone HCL [Trazodone HCl] 100 mg PO HSP PRN 12/18/18 03/01/19 History Lantus Solostar 45 units SQ BID #1 12/21/18 03/01/19 Rx amLODIPine [Norvasc] 5 mg PO DAILY #30 tab 12/21/18 03/01/19 Rx Ondansetron [Zofran ODT] 4 mg SL Q4-6HP PRN #20 tab 01/19/19 03/01/19 Rx HYDROcodone/APAP 5/325MG [Graff 1 tab PO Q4HP PRN #12 tab 02/25/19 03/01/19 Rx 5-325Mg] Prochlorperazine [Compazine] 10 mg PO Q8HP PRN #10 tab 02/25/19 03/01/19 Rx Insulin Lispro [Humalog] 1 unit SQ DAILY 03/01/19 03/01/19 History Allergies Allergy/AdvReac Type Severity Reaction Status Date / Time vancomycin Allergy Severe Anaphylaxis Verified 02/28/19 23:20 adhesive tape AdvReac Mild rash and Verified 03/01/19 07:00 allergy escitalopram [From Lexapro] AdvReac Mild Diarrhea Verified 02/28/19 23:20 fentanyl AdvReac Mild halucinations Verified 02/28/19 23:20 and confusion fluoxetine [From Prozac] AdvReac Mild Nausea Verified 02/28/19 23:20 ketorolac [From Toradol] AdvReac Mild Vomiting Verified 02/28/19 23:20 metformin AdvReac Mild Nausea Verified 02/28/19 23:20 methocarbamol AdvReac Mild Nausea Verified 02/28/19 23:20 metoclopramide [From Reglan] AdvReac Mild Shakiness Verified 02/28/19 23:20 morphine AdvReac Mild Headache Verified 02/28/19 23:20 NSAIDS (Non-Steroidal AdvReac Mild Rash Verified 03/01/19 07:00 Anti-Inflamma Paroxetine [From Paxil] AdvReac Mild Nausea Verified 02/28/19 23:20 Penicillins AdvReac Mild Nausea Verified 03/01/19 08:17 promethazine [From Phenergan] AdvReac Mild Shakiness Verified 02/28/19 23:20 Sulfa (Sulfonamide AdvReac Mild Nausea Verified 02/28/19 23:20 Antibiotics) Exam Temp Pulse Resp BP Pulse Ox 98.4 F 88 18 145/90 96 03/01/19 15:17 03/01/19 06:45 03/01/19 15:17 03/01/19 15:17 03/01/19 15:17 Results - Labs 02/28/19 23:45 Abnormal lab results 02/28/19 02/28/19 02/28/19 Range/Units 23:45 23:45 23:45 WBC 15.2 H (4.5-11.0) K/mcL RBC 3.92 L (4.00-5.20) M/mcL Hgb 11.3 L (12.0-15.0) g/dL Hct 33.7 L (36.0-48.0) % POC Hct 35.0 L (36.0-48.0) % MPV 7.0 L (7.4-10.4) fL Gran # 10.5 H (1.8-8.0) K/mcL ESR (0-20) mm/hr POC Sodium 131 L (133-145) mmol/L POC BUN 23 H (6-20) mg/dl POC Glucose 496 H* (70-105) mg/dL POC WB Ioniz Calcium 1.12 L (1.16-1.32) mmol/L C-Reactive Protein 1.3 H (0.0-0.8) mg/dl Urine Protein (NEG) mg/dL Urine Glucose (UA) (NEG) mg/dL Urine Occult Blood (<0.03) mg/dL Urine RBC (0-1) /hpf 03/01/19 03/01/19 03/01/19 Range/Units 01:14 03:05 08:15 WBC (4.5-11.0) K/mcL RBC (4.00-5.20) M/mcL Hgb (12.0-15.0) g/dL Hct (36.0-48.0) % POC Hct (36.0-48.0) % MPV (7.4-10.4) fL Gran # (1.8-8.0) K/mcL ESR 61 H 76 H (0-20) mm/hr POC Sodium (133-145) mmol/L POC BUN (6-20) mg/dl POC Glucose (70-105) mg/dL POC WB Ioniz Calcium (1.16-1.32) mmol/L C-Reactive Protein (0.0-0.8) mg/dl Urine Protein 30 A (NEG) mg/dL Urine Glucose (UA) >=500 A (NEG) mg/dL Urine Occult Blood 0.2 A (<0.03) mg/dL Urine RBC 15 H (0-1) /hpf 03/01/19 Range/Units 08:15 WBC (4.5-11.0) K/mcL RBC (4.00-5.20) M/mcL Hgb (12.0-15.0) g/dL Hct (36.0-48.0) % POC Hct (36.0-48.0) % MPV (7.4-10.4) fL Gran # (1.8-8.0) K/mcL ESR (0-20) mm/hr POC Sodium (133-145) mmol/L POC BUN (6-20) mg/dl POC Glucose (70-105) mg/dL POC WB Ioniz Calcium (1.16-1.32) mmol/L C-Reactive Protein 1.3 H (0.0-0.8) mg/dl Urine Protein (NEG) mg/dL Urine Glucose (UA) (NEG) mg/dL Urine Occult Blood (<0.03) mg/dL Urine RBC (0-1) /hpf All other labs normal. Assessment and Plan (1) Nausea, vomiting and diarrhea Status: Acute Priority: Medium (2) DKA (diabetic ketoacidoses) Status: Acute Priority: Medium Qualifiers: Diabetes mellitus type: type 1 Diabetes mellitus complication detail: without coma Qualified Code(s): E10.10 - Type 1 diabetes mellitus with ketoacidosis without coma (3) Vomiting Status: Acute Priority: Medium Qualifiers: Vomiting type: unspecified Vomiting Intractability: unspecified Nausea presence: without nausea Qualified Code(s): R11.11 - Vomiting without nausea (4) Diarrhea Status: Acute Priority: Medium Qualifiers: Diarrhea type: unspecified type Qualified Code(s): R19.7 - Diarrhea, u nspecified (5) Cellulitis Status: Acute Priority: High Qualifiers: Site of cellulitis: extremity Site of cellulitis of extremity: lower extremity Laterality: left Qualified Code(s): L03.116 - Cellulitis of left lower limb
[2019-03-01] MEDS ORDERED: traZODone HCL 100 MG TABLET PO PRN (21:00)
[2019-03-01] MEDS ORDERED: SENNOSIDES/DOCUSATE SODIUM 1 TAB TABLET PO SCH (21:00)
== END 2019-03-01 17:00 | disposition short-term general hospital (02) | DRG 564 ==
LOC: ED 23:16 → MEDSUR 03-01 04:07
PROVIDERS: ADMIT Internal Medicine; ATTEND Internal Medicine

== ENCOUNTER 2019-12-14 16:47 | Inpatient (IN) ==
[2019-12-14] MEDS ORDERED: 0.9 % SODIUM CHLORIDE 1,000 ML IV ONE (18:05)
[2019-12-14] MEDS ORDERED: ONDANSETRON 4 MG/2 ML VIAL IV ONE (18:05)
[2019-12-14] MEDS ORDERED: KETOROLAC 30 MG/ML VIAL IV ONE (18:17)
[2019-12-14] MEDS: HYDROmorphone 2 MG/ML VIAL IV PRN ×3 (18:28→23:13)
--- NOTE | 2019-12-14 18:33 | Emergency Department Note ---
Lower Extremity Injury HPI - General Chief Complaint: Extremity Injury, Lower Stated Complaint: lower extremity Time Seen by Provider: 12/14/19 18:03 Source: patient Mode of arrival: ambulatory Limitations: no limitations - History of Present Illness HPI Narrative: 44-year old patient presenting to the emergency department with a chief complaint of injury to the 3 remaining toes that she has. Patient reporting mechanism of injury was sock pulled her toe nails off and overnight her toes swelled up and got red. Also reporting swelling to the foot generally. This issue occurred 1-2 days ago. Exacerbating features are attempting to move it, pressure. Ameliorating factors are immobilization, pain medications. Patient denying symptoms of pain out of proportion to the extremity, pallor to the extremity, other color change. Patient denies injury to other parts of the body at the same time. - Related Data Home Medications Medication Instructions Recorded Confirmed blood sugar diagnostic See Dose Instructions .ROUTE 05/21/18 11/25/19 .MEDSUPPLY #20 each blood-glucose meter See Dose Instructions .ROUTE 05/21/18 11/25/19 .MEDSUPPLY #1 each lancets See Dose Instructions .ROUTE 05/21/18 11/25/19 .MEDSUPPLY #50 each pen needle, diabetic 1 each MISCELLANE ACHS 05/21/18 11/25/19 polyethylene glycol 3350 17 g PO QDAY PRN 05/21/18 12/15/19 traZODone HCL [Trazodone HCl] 100 mg PO HSP PRN 12/18/18 12/15/19 amitriptyline 50 mg tablet 50 mg PO QHS 11/09/19 12/15/19 gabapentin 300 mg capsule 300 mg PO TID 11/25/19 12/15/19 insulin lispro 100 unit/mL 1 unit SUB-Q DAILY 11/25/19 12/14/19 subcutaneous solution lisinopril 20 mg tablet 20 mg PO DAILY tab 11/25/19 12/15/19 Previous Rx's Medication Instructions Recorded Ondansetron [Zofran ODT] 4 mg SL Q4-6HP PRN #20 tab 01/19/19 diltiazem HCl 120 mg capsule,24 120 mg PO QAM #30 cap 11/25/19 hr,extended release insulin detemir U-100 100 unit/mL 30 unit SUB-Q BID #15 ml 11/25/19 (3 mL) subcutaneous pen Allergies Allergy/AdvReac Type Severity Reaction Status Date / Time vancomycin Allergy Severe Anaphylaxis Verified 11/25/19 14:33 adhesive tape AdvReac Mild rash and Verified 11/25/19 14:33 allergy escitalopram [From Lexapro] AdvReac Mild Diarrhea Verified 11/25/19 14:33 fentanyl AdvReac Mild halucinations Verified 11/25/19 14:33 and confusion fluoxetine [From Prozac] AdvReac Mild Nausea Verified 11/25/19 14:33 ketorolac [From Toradol] AdvReac Mild Vomiting Verified 11/25/19 14:33 metformin AdvReac Mild Nausea Verified 11/25/19 14:33 methocarbamol AdvReac Mild Nausea Verified 11/25/19 14:33 metoclopramide [From Reglan] AdvReac Mild Shakiness Verified 11/25/19 14:33 morphine AdvReac Mild Headache Verified 11/25/19 14:33 NSAIDS (Non-Steroidal AdvReac Mild Rash Verified 11/25/19 14:33 Anti-Inflamma Paroxetine [From Paxil] AdvReac Mild Nausea Verified 11/25/19 14:33 Penicillins AdvReac Mild Nausea Verified 11/25/19 14:33 promethazine [From Phenergan] AdvReac Mild Shakiness Verified 11/25/19 14:33 Sulfa (Sulfonamide AdvReac Mild Nausea Verified 11/25/19 14:33 Antibiotics) Review of Systems All systems ED: reviewed and negative except as stated. Past Medical History - Past Medical History PMFSH Narrative: All Active Problems (Last Updated 11/09/19 @ 10:12 by Nivia Noguera) Citrobacter infection (Acute) History of kidney stones (Chronic) Essential hypertension (Chronic) Osteomyelitis (Chronic) Nausea (Chronic) Flank pain (Chronic) Diabetic gastroparesis (Chronic) Paronychia (Chronic) Cellulitis, toe (Chronic) Cellulitis (Chronic) Gastroenteritis (Chronic) Abdominal pain (Chronic) Hyperglycemia (Chronic) Osteomyelitis (Chronic) Osteomyelitis due to type 2 diabetes mellitus (Chronic) Chest pain, non-cardiac (Chronic) Hyperglycemia without ketosis (Chronic) buttermaker continuous churn prescription opiate use (Chronic) 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) buttermaker continuous churn (current) use of insulin (Chronic) Diabetic peripheral neuropathy (Chronic) Benign essential hypertension (Chronic) CKD (chronic kidney disease) stage 2, GFR 60-89 ml/min (Chronic) Hyperlipidemia (Chronic) Sepsis due to undetermined organism without resultant organ failure (Chronic) Pyelonephritis (Chronic) Diabetic foot ulcer (Chronic) Osteomyelitis of toe of right foot (Chronic) Depression, major, recurrent, moderate (Chronic) Genital herpes (Chronic) Hypothyroidism (Chronic) Noncompliance with medication regimen (Chronic) Ex-smoker (Chronic) DDD (degenerative disc disease), lumbosacral (Chronic) Lumbar back pain (Chronic) Chronic back pain (Chronic) Elevated hemoglobin A1c (Chronic) Hepatomegaly (Chronic) Medical history: Reports: chronic narcotics, DM, kidney stones, other Psychiatric history: Reports: depression, prior suicide attempt 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 Surgical history ED: Reports: appendectomy, cholecystectomy, hysterectomy, orthopedic, other, other (status post left BKA, right toe amputation) - Social History smoking status: Former smoker Alcohol use: Reports: None Drug use: Reports: unknown Physical Exam General: Alert, interactive, appropriate Head: Atraumatic, normocephalic Eyes: Extraocular movements intact Neck: Trachea midline, full range of motion Chest: Symmetrical chest wall rise, breathing normally Cardiovascular: Patient with excellent perfusion to the extremities Extremities: Full range of motion in other joints, BKA to the left, 1st and 5th toes amputated to the right. Pt with erythema to the remaining toes with some early necrosis to the distal tips, pt with some swelling to the dorsum of her right foot, no ascending lymphangitis Neuro: Alert, oriented x3, cranial nerves II through XII grossly intact Psychiatric: Normal affect normal mood Limitations: no limitations Course Vital Signs Temperature 97.8 F 12/14/19 16:48 Pulse Rate 105 H 12/14/19 16:48 Respiratory Rate 18 12/14/19 16:48 Blood Pressure 154/93 12/14/19 16:48 Pulse Oximetry (%) 98 12/14/19 16:48 Temperature 97.1 F 12/15/19 06:37 Pulse Rate 91 H 12/15/19 06:37 Respiratory Rate 16 12/15/19 06:37 Blood Pressure 149/101 12/15/19 06:37 Pulse Oximetry (%) 98 12/15/19 06:37 Extremity Injury, Lower - MDM Narrative Medical decision making narrative: This patient presenting with chief complaint of lower extremity injury. Patient was evaluated with combination of history/physical exam/radiologic evaluation. Diagnosis conclusion this case is patient has sustained likely cellulitis and gangrene/osteomyelitis to her 3 remaining toes. Patient is without evidence of acute neurovascular compromise of the extremity aside from the diabetic neuropathy. - Lab Data Result diagrams: 12/15/19 05:52 12/15/19 05:52 Lab Results 12/14/19 12/14/19 12/14/19 Range/Units 18:10 18:10 19:21 WBC 13.2 H (4.50-11.00) K/mcL RBC 3.67 (3.59-5.38) M/mcL Hgb 11.0 L (11.2-15.7) g/dL Hct 31.4 L (34.1-44.9) % MCV 85.6 (80.0-100.0) fL MCH 30.0 (26.0-34.0) pg MCHC 35.0 (31.0-36.0) g/dL RDW 12.7 (11.5-14.5) % Plt Count 356 (140-440) K/mcL MPV 8.9 (7.4-10.4) fL Gran % 65.3 (38.0-78.0) % Lymph % (Auto) 25.2 (15.5-49.0) % Putnam % (Auto) 6.9 (1.0-12.0) % Eos % (Auto) 2.2 (0.0-7.0) % Baso % (Auto) 0.4 (0.0-2.0) % Gran # 8.62 H (1.80-8.00) K/mcL Lymph # (Auto) 3.32 (1.50-4.80) K/mcL Putnam # (Auto) 0.91 H (0.10-0.90) K/mcL Eos # (Auto) 0.29 (0.00-0.70) K/mcL Baso # (Auto) 0.05 (0.00-0.30) K/mcL ESR 111 H (0-20) mm/hr Sodium 133 (133-145) mmol/L Potassium 4.2 (3.3-5.1) mmol/L Chloride 98 (96-108) mmol/L Carbon Dioxide 23 (22-30) mmol/L Anion Gap 12.0 (8-16) BUN 25 H (6-20) mg/dl Creatinine 1.3 H (0.6-1.1) mg/dl GFR Calculation 50 Glucose 91 (70-105) mg/dL Calcium 9.6 (8.6-10.4) mg/dl Total Bilirubin < 0.2 (0.0-1.0) mg/dL AST 21 (0-37) U/l ALT 25 (0-40) U/l Alkaline Phosphatase 135 H (39-117) U/L C-Reactive Protein 2.6 H (0.0-0.8) mg/dl Total Protein 7.1 (5.9-8.4) gm/dL Albumin 3.4 (3.2-5.2) gm/dL Globulin 3.7 (2.2-3.7) gm/dL Albumin/Globulin Ratio 0.9 L (1.0-2.3) Urine Color Yellow Urine Appearance Clear Urine pH 5.0 (5.0-9.0) Ur Specific Burns 1.012 (1.000-1.035) Urine Protein 100 A (NEG) mg/dL Urine Glucose (UA) 50 A (NEG) mg/dL Urine Ketones Neg (NEG) mg/dL Urine Occult Blood >=1.0 A (<0.03) mg/dL Urine Nitrate Neg (NEG) Urine Bilirubin Neg (NEG) mg/dL Urine Urobilinogen Neg (NEG) mg/dL Ur Leukocyte Esterase Neg (NEG) /uL Urine RBC > 182 H (0-1) /hpf Urine WBC 9 H (0-4) /hpf Ur Squamous Epith Cells 2 (0-4) /hpf Urine Bacteria 0 (0) /hpf Urine Mucus Few (0) /hpf Ur Culture Indicated? No Disposition Pt seen by CHARTERED ACCOUNTANT/PA only: No Clinical Impression: Cellulitis of foot Disposition: Xfer As Inpt ([facility]) Condition: Fair
[2019-12-14 19:00] LABS: Basophils # (Auto) 0.05 K/mcL (0.00-0.30); Basophils % (Auto) 0.4 % (0.0-2.0); Eosinophils # (Auto) 0.29 K/mcL (0.00-0.70); Eosinophils % (Auto) 2.2 % (0.0-7.0); Granulocytes % (Auto) 65.3 % (38.0-78.0); Hematocrit 31.4 % (34.1-44.9); Lymphocytes # (Auto) 3.32 K/mcL (1.50-4.80); Lymphocytes % (Auto) 25.2 % (15.5-49.0); Mean Cell Volume 85.6 fL (80.0-100.0); Mean Platelet Volume 8.9 fL (7.4-10.4); Monocytes # (Auto) 0.91 K/mcL (0.10-0.90); Monocytes % (Auto) 6.9 % (1.0-12.0); Platelet Count 356 K/mcL (140-440); RBC 3.67 M/mcL (3.59-5.38); Red Cell Distribution Width 12.7 % (11.5-14.5); WBC 13.2 K/mcL (4.50-11.00)
[2019-12-14 19:13] LABS: ALT/SGPT 25 U/l (0-40); AST/SGOT 21 U/l (0-37); Albumin 3.4 gm/dL (3.2-5.2); Albumin/Globulin Ratio 0.9 (1.0-2.3); Alkaline Phosphatase 135 U/L (39-117); Bilirubin,Total < 0.2 mg/dL (0.0-1.0); Blood Urea Nitrogen 25 mg/dl (6-20); C-Reactive Protein 2.6 mg/dl (0.0-0.8); Calcium 9.6 mg/dl (8.6-10.4); Carbon Dioxide 23 mmol/L (22-30); Chloride 98 mmol/L (96-108); Globulin 3.7 gm/dL (2.2-3.7); Glomerular Filtration Rate 50; Glucose 91 mg/dL (70-105)
[2019-12-14 19:58] LABS: Appearance,Urine CLEAR; Bacteria,Urine 0 /hpf (0); Bilirubin,Urine NEG (NEG); Color,Urine YELLOW; Culture Indicated,Urine NO; Glucose,Urine (UA) 50 mg/dL (NEG); Ketones,Urine NEG (NEG); Leukocyte Esterase,Urine NEG /uL (NEG); Mucus,Urine FEW /hpf (0); Nitrate,Urine NEG (NEG); Protein,Urine 100 mg/dL (NEG); Specific Gravity,Urine 1.012 (1.000-1.035); Urine Blood >=1.0 mg/dL (<0.03); Urine RBC > 182 /hpf (0-1); Urine Squamous Epithelial Cell 2 /hpf (0-4); Urine WBC 9 /hpf (0-4); Urobilinogen,Urine NEG (NEG)
[2019-12-14 20:02] LABS: Erythrocyte Sedimentation Rate 111 mm/hr (0-20)
--- NOTE | 2019-12-14 21:02 | Internal Med History&Physical ---
Medical - H&P: [facility] Patient information: Note initiated : 12/14/19 at 8:57 pm Service Date, if different from initiated Date: [] Patient: Jeanette Gonzalez a 44 y/o F admitted on for lower extremity. Chief Complaint: [] History of present illness: Ms. Gonzalez is a 44 year old F Who reports about a week ago she took off her sock and felt like it got caught on the toenails and they fell off. She is been dressing the wound since then. Toes been fine however today she took off her dressings and felt like the toes were becoming red and swollen and her foot was becoming swollen. She is felt feverish as well. In the ED she has had of a mild leukocytosis and appeared to be infection of the toes and foot. She says her blood sugars used to run for 500s and her last A1c in beginning of October was 15. She says since that time her regimen has been adjusted and she has been between 120 and 180. She also complains of a dry cough past 3 days. And some nausea intermittent vomiting. As well as a headache. She is had amputation of the great toe and little toe on that right foot in the past. Review of Systems: Pertinent positives as above including headache fever chills nausea vomiting and some abdominal pain from vomiting. Denies chest/dyspnea. Remaining 10 point review of system reviewed negative Medical - H&P: [facility] Medical history: Medical History (Last Updated 11/09/19 @ 10:12 by Nivia Noguera) Citrobacter infection (Acute) History of kidney stones (Chronic) Essential hypertension (Chronic) ARF (acute renal failure) with tubular necrosis (Resolved) Osteomyelitis (Chronic) Nausea (Chronic) Flank pain (Chronic) Diabetic gastroparesis (Chronic) Paronychia (Chronic) Cellulitis, toe (Chronic) Cellulitis (Chronic) Gastroenteritis (Chronic) Abdominal pain (Chronic) Hyperglycemia (Chronic) Osteomyelitis (Chronic) Osteomyelitis due to type 2 diabetes mellitus (Chronic) Chest pain, non-cardiac (Chronic) Hyperglycemia without ketosis (Chronic) USP prescription opiate use (Chronic) 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) USP (current) use of insulin (Chronic) Diabetic peripheral neuropathy (Chronic) Benign essential hypertension (Chronic) CKD (chronic kidney disease) stage 2, GFR 60-89 ml/min (Chronic) Hyperlipidemia (Chronic) Sepsis due to undetermined organism without resultant organ failure (Chronic) Pyelonephritis (Chronic) Diabetic foot ulcer (Chronic) Osteomyelitis of toe of right foot (Chronic) Depression, major, recurrent, moderate (Chronic) Genital herpes (Chronic) Hypothyroidism (Chronic) Noncompliance with medication regimen (Chronic) Ex-smoker (Chronic) DDD (degenerative disc disease), lumbosacral (Chronic) Lumbar back pain (Chronic) Chronic back pain (Chronic) Elevated hemoglobin A1c (Chronic) Hepatomegaly (Chronic) Acute bilateral ankle pain (Resolved) Burn of third degree of left foot, subsequent encounter (Resolved) Cellulitis (Resolved) Cellulitis and abscess of foot (Resolved) Contusion of foot with skin surface intact (Resolved) Diarrhea (Resolved) Elevated liver enzymes (Resolved) Elevated sed rate (Resolved) Hyperosmolar non-ketotic state in patient with type 2 diabetes mellitus (Resolved) Hyponatremia (Resolved) Laceration (Resolved) Leg pain, left (Resolved) Nausea (Resolved) Osteomyelitis due to type 1 diabetes mellitus (Resolved) Sepsis affecting skin (Resolved) Tachycardia (Resolved) Ulcer of left foot (Resolved) Urinary tract infection (Resolved) Acquired absence of left great toe (Inactive) Chronic leg pain (Inactive) Coagulase-negative staphylococcal infection (Inactive) Diabetes (Inactive) Diabetes mellitus with foot ulcer due to multiple causes (Inactive) Diabetic foot infection (Inactive) Gangrene of toe (Inactive) Hyperglycemia due to type 1 diabetes mellitus (Inactive) Hyperglycemia due to type 2 diabetes mellitus (Inactive) Type 1 diabetes mellitus (Inactive) Wound infection (Inactive) Past Surgical History (Last Reviewed 01/21/19 @ 14:27 by Ana Abebe RN) History of appendectomy (Chronic) History of cholecystectomy (Chronic) History of incision and drainage (Chronic 01/01/18) History of partial hysterectomy (Chronic) History of tubal ligation (Chronic) 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) Status post right foot surgery (Chronic) Family History (Last Updated 03/19/19 @ 00:20 by Edwar Ndiaye DO) Mother Diabetes Father Diabetes Brother Diabetes Sister Diabetes Other Abdominal pain Cellulitis DKA (diabetic ketoacidoses) Hyperglycemia Nausea, vomiting and diarrhea Osteomyelitis Osteomyelitis due to type 2 diabetes mellitus Vomiting Social History (Last Updated 11/25/19 @ 16:45 by Rojelio Walls MD) Patient is cut down on her cigarette intake she was 2-3 cigarettes a day Denies alcohol use Uses crutches and wheelchair to get around. Currently lives with the mother. Medical - H&P: Meds Home Medications Medication Instructions Recorded Confirmed Type blood sugar diagnostic See Dose Instructions .ROUTE 05/21/18 11/25/19 History .MEDSUPPLY #20 each blood-glucose meter See Dose Instructions .ROUTE 05/21/18 11/25/19 History .MEDSUPPLY #1 each lancets See Dose Instructions .ROUTE 05/21/18 11/25/19 History .MEDSUPPLY #50 each pen needle, diabetic 1 each MISCELLANE ACHS 05/21/18 11/25/19 History polyethylene glycol 3350 17 g PO QDAY PRN 05/21/18 12/14/19 History traZODone HCL [Trazodone HCl] 100 mg PO HSP PRN 12/18/18 12/14/19 History Ondansetron [Zofran ODT] 4 mg SL Q4-6HP PRN #20 tab 01/19/19 12/14/19 Rx amitriptyline 50 mg tablet 50 mg PO QDAY 11/09/19 12/14/19 History diltiazem HCl 120 mg capsule,24 120 mg PO QAM #30 cap 11/25/19 12/14/19 Rx hr,extended release gabapentin 300 mg capsule 300 mg PO TID 11/25/19 12/14/19 History insulin detemir U-100 100 unit/mL 30 unit SUB-Q BID #15 ml 11/25/19 12/14/19 Rx (3 mL) subcutaneous pen insulin lispro 100 unit/mL 1 unit SUB-Q DAILY 11/25/19 12/14/19 History subcutaneous solution lisinopril 20 mg tablet 20 mg PO QHS tab 11/25/19 12/14/19 History Allergies Allergy/AdvReac Type Severity Reaction Status Date / Time vancomycin Allergy Severe Anaphylaxis Verified 11/25/19 14:33 adhesive tape AdvReac Mild rash and Verified 11/25/19 14:33 allergy escitalopram [From Lexapro] AdvReac Mild Diarrhea Verified 11/25/19 14:33 fentanyl AdvReac Mild halucinations Verified 11/25/19 14:33 and confusion fluoxetine [From Prozac] AdvReac Mild Nausea Verified 11/25/19 14:33 ketorolac [From Toradol] AdvReac Mild Vomiting Verified 11/25/19 14:33 metformin AdvReac Mild Nausea Verified 11/25/19 14:33 methocarbamol AdvReac Mild Nausea Verified 11/25/19 14:33 metoclopramide [From Reglan] AdvReac Mild Shakiness Verified 11/25/19 14:33 morphine AdvReac Mild Headache Verified 11/25/19 14:33 NSAIDS (Non-Steroidal AdvReac Mild Rash Verified 11/25/19 14:33 Anti-Inflamma Paroxetine [From Paxil] AdvReac Mild Nausea Verified 11/25/19 14:33 Penicillins AdvReac Mild Nausea Verified 11/25/19 14:33 promethazine [From Phenergan] AdvReac Mild Shakiness Verified 11/25/19 14:33 Sulfa (Sulfonamide AdvReac Mild Nausea Verified 11/25/19 14:33 Antibiotics) Medical - H&P: Exam - Constitutional Vitals: Temp Pulse Resp BP Pulse Ox 98.6 F 101 H 18 168/102 100 12/14/19 20:29 12/14/19 20:27 12/14/19 16:48 12/14/19 20:27 12/14/19 20:27 Exam: General: Alert, Awake, No acute Distress Eyes/N/T: EOMI, PEERL, dry MM Head/Neck: neck supple, normocephalic atraumatic CV: tachy but regular, No murmurs, normal s1/s2 Pulm: Clear b/l, no wheezing/rhonchi/rales Abd: soft, nontender, +BS x4 Ext: Left BKA. Right great toe and little toe previously amputated. 3 middle toes with erythema and swelling and tenderness. Foot with tenderness to touch dorsum and plantar sides Neuro: Alert, no focal deficits, moves all extremities, CN 2-12 grossly intact, symmetrical strength b/l upper/lower, decreased sensations bilateral lower extremity chronic Skin: warm/dry Medical - H&P: Reslt - Labs CBC & Chem 7: 12/14/19 18:10 12/14/19 18:10 Labs: Short CBC 12/14/19 Range/Units 18:10 WBC 13.2 H (4.50-11.00) K/mcL Hgb 11.0 L (11.2-15.7) g/dL Hct 31.4 L (34.1-44.9) % Plt Count 356 (140-440) K/mcL BMP 12/14/19 18:10 Sodium 133 Potassium 4.2 Chloride 98 Carbon Dioxide 23 BUN 25 H Creatinine 1.3 H Glucose 91 Calcium 9.6 Liver Function 12/14/19 Range/Units 18:10 Total Bilirubin < 0.2 (0.0-1.0) mg/dL AST 21 (0-37) U/l ALT 25 (0-40) U/l Alkaline Phosphatase 135 H (39-117) U/L Albumin 3.4 (3.2-5.2) gm/dL Urine 12/14/19 Range/Units 19:21 Urine Color Yellow Urine Appearance Clear Urine pH 5.0 (5.0-9.0) Ur Specific [place] 1.012 (1.000-1.035) Urine Protein 100 A (NEG) mg/dL Urine Glucose (UA) 50 A (NEG) mg/dL Medical - H&P: A/P - Narrative A/P Narrative: A: *Right middle toes with cellulitis (great toe and little toe previously amputated): As complication of diabetes *SIRS: 2/2 above *DM, poorly controlled with diabetic wounds and neuropathy: -A1c >14 in early October but she states that since that time her regimen was adjusted and she has been between 120-180 daily *HTN: elevated on admit *Chronic pain *Depression *Hypothyroid: *Tobacco Abuse *CKD II-III: P: -Zosyn, MRSA screen (neg in past) -CT foot pending in AM -Dr Nichols consult and like Podiatry -cont CCB, hold ACEI for now and f/u renal fxn -home basal and SSI -Smoking cessation counseling -pt/ot -ppx: heparin full code
[2019-12-14] MEDS ORDERED: LABETALOL 5 MG/ML ML IV PRN (22:15)
[2019-12-14] MEDS ORDERED: DEXTROSE 50% 50 ML VIAL IV PRN (22:15)
[2019-12-14] MEDS ORDERED: MAGNESIUM SULFATE 2 GM/50 ML BAG IV PRN (22:15)
[2019-12-14] MEDS ORDERED: POTASSIUM CHLORIDE 20 MEQ TABLET PO PRN ×2 (22:15)
[2019-12-14] MEDS ORDERED: SENNOSIDES 1 TABLET PO PRN (22:15)
[2019-12-14] MEDS ORDERED: POLYETHYLENE GLYCOL 3350 17 GM PACKET PO PRN (22:15)
[2019-12-14] MEDS ORDERED: ACETAMINOPHEN 325 MG TABLET PO PRN (22:15)
[2019-12-14] MEDS ORDERED: METOCLOPRAMIDE 10 MG/2 ML VIAL IV PRN (22:15)
[2019-12-14] MEDS ORDERED: traZODone HCL 100 MG TABLET PO PRN (22:15)
[2019-12-14] MEDS ORDERED: IPRATROPIUM/ALBUTEROL 3 ML AMPUL.NEB NEB PRN (22:15)
[2019-12-14] MEDS ORDERED: DEXTROSE 31 GM ORAL.SUSP PO PRN (22:15)
[2019-12-14] MEDS ORDERED: ONDANSETRON 4 MG/2 ML VIAL IV PRN (22:15)
[2019-12-14] MEDS ORDERED: POTASSIUM CHLORIDE 40 MEQ in DEXTROSE 5% IN WATER 500 ML IV PRN (22:15)
[2019-12-14] MEDS ORDERED: HYDROmorphone 1 MG/ML SYRINGE IV PRN (23:02)
[2019-12-14] MEDS ORDERED: HYDROmorphone 2 MG/ML VIAL ONE (23:09)
[2019-12-14] MEDS: PIPERACILLIN SODIUM/TAZOBACTAM 3.375 GM in DEXTROSE 5% IN WATER 50 ML IV SCH (23:12)
[2019-12-14] MEDS: AMITRIPTYLINE 25 MG TABLET PO SCH (23:13)
[2019-12-14] MEDS: 0.9 % SODIUM CHLORIDE 1,000 ML IV SCH (23:13)
[2019-12-14] MEDS: 0.9 % SODIUM CHLORIDE 10 ML SYRINGE IV SCH (23:23)
[2019-12-15] MEDS ORDERED: HYDROmorphone 2 MG/ML VIAL ONE ×3 (01:16→05:57)
[2019-12-15] MEDS: hydrALAZINE 20 MG/ML VIAL IV PRN ×2 (03:28→19:35)
[2019-12-15] MEDS: PIPERACILLIN SODIUM/TAZOBACTAM 3.375 GM in DEXTROSE 5% IN WATER 50 ML IV SCH ×4 (05:50→23:18)
[2019-12-15] MEDS: 0.9 % SODIUM CHLORIDE 10 ML SYRINGE IV SCH ×3 (05:51→21:22)
[2019-12-15] MEDS: 0.9 % SODIUM CHLORIDE 1,000 ML IV SCH ×2 (05:52→07:35)
--- NOTE | 2019-12-15 06:34 | XRay Report ---
CLINICAL INFORMATION: History of osteomyelitis. TECHNIQUE: AP, oblique, lateral right foot COMPARISON: Previous MRI scan dated 08/20/2019. This right fifth toe dated 08/14/2019. FINDINGS: Previous amputation at the right first metatarsal phalangeal joint and right fifth metatarsal phalangeal joint. Abnormality of the right second terminal tuft in the distal phalanx. There is a fracture. There may be bone destruction. This may be a pathologic fracture and osteomyelitis. Follow-up examination recommended. There is a fracture involving the terminal tuft of the right fourth distal phalanx. This is new since 08/14/2019. No definite bone destruction. No evidence for osteomyelitis. No other areas of cortical destruction. No soft tissue gas or radiopaque foreign body. IMPRESSION: 1. Fracture of the terminal tuft of the right second distal phalanx. This may be a pathologic fracture and osteomyelitis is possible 2. Fracture of the terminal tuft of the right fourth distal phalanx without bone destruction Interpreted and Authenticated by: Jeremy Figueredo 12/15/19
[2019-12-15 07:26] LABS: Hematocrit 29.9 % (34.1-44.9); Mean Cell Volume 87.7 fL (80.0-100.0); Mean Corpuscular HGB Conc 33.4 g/dL (31.0-36.0); Platelet Count 322 K/mcL (140-440); RBC 3.41 M/mcL (3.59-5.38); Red Cell Distribution Width 12.8 % (11.5-14.5)
[2019-12-15] MEDS: INSULIN GLARGINE, HUMAN 1 UNIT/0.01 ML SQ SCH ×2 (07:27→20:42)
[2019-12-15] MEDS: INSULIN LISPRO 1 UNIT/0.01 ML UNIT SQ SCH ×4 (07:29→21:59)
[2019-12-15] MEDS: HYDROcodone/APAP 5/325MG TABLET PO PRN ×4 (07:32→20:42)
[2019-12-15] MEDS: DILTIAZEM 120 MG CAP.XL.24H PO SCH (07:33)
[2019-12-15] MEDS: GABAPENTIN 300 MG CAPSULE PO SCH ×3 (07:33→20:42)
[2019-12-15 08:14] LABS: ALT/SGPT 29 U/l (0-40); AST/SGOT 38 U/l (0-37); Albumin 3.1 gm/dL (3.2-5.2); Alkaline Phosphatase 138 U/L (39-117); Bilirubin,Direct < 0.2 mg/dL (0.0-0.3); Bilirubin,Total < 0.2 mg/dL (0.0-1.0); Blood Urea Nitrogen 25 mg/dl (6-20); Calcium 8.2 mg/dl (8.6-10.4); Carbon Dioxide 21 mmol/L (22-30); Chloride 101 mmol/L (96-108); Globulin 3.1 gm/dL (2.2-3.7); Glomerular Filtration Rate 46; Glucose 283 mg/dL (70-105); Lactate Dehydrogenase 199 U/L (94-250); Phosphorous 4.3 mg/dL (2.7-4.5); Uric Acid 4.5 mg/dL (2.5-8.0)
[2019-12-15 08:17] LABS: Triglycerides 379 mg/dl (<150)
[2019-12-15 08:24] LABS: Eosinophils % (Manual) 1 % (0-7); Lymphocytes % 27 % (15-49); Monocytes % (Manual) 5 % (1-12); Platelet Estimate NORMAL (NORMAL); Promyelocytes % 1 % (0-0); RBC Morphology NORMAL (NORMAL); Reactive Lymphocytes 1 % (0-2); Segmented Neutrophils % 65 % (38-78)
[2019-12-15] MEDS ORDERED: diphenhydrAMINE 25 MG CAPSULE PO PRN (08:31)
--- NOTE | 2019-12-15 08:37 | Internal Med Progress Note ---
Medical - PN: Subj Patient information: Note initiated : 12/15/19 at 8:29 am Service Date, if different from initiated Date: [] Patient: Jeanette Gonzalez a 44 y/o F admitted on 12/14/19 for lower extremity. Chief Complaint: [] Interval history: Ms. Gonzalez is a 44 year old F Who reports about a week ago she took off her sock and felt like it got caught on the toenails and they fell off. She is been dressing the wound since then. Toes been fine however today she took off her dressings and felt like the toes were becoming red and swollen and her foot was becoming swollen. She is felt feverish as well. In the ED she has had of a mild leukocytosis and appeared to be infection of the toes and foot. She says her blood sugars used to run for 500s and her last A1c in beginning of October was 15. She says since that time her regimen has been adjusted and she has been between 120 and 180. She also complains of a dry cough past 3 days. And some nausea intermittent vomiting. As well as a headache. She is had amputation of the great toe and little toe on that right foot in the past. 12/15 Did not sleep very well last night, but did not get her home trazodone. Foot/toe swollen and tender. Occasional cough and some chills. No other complaints. Review of Systems: denies headache/fever/nausea/vomiting/chest or abdominal pain/dyspnea. Otherwise see above. - Constitutional Vitals: Vital Signs Temp Pulse Resp BP Pulse Ox 97.1 F 91 H 16 149/101 98 12/15/19 06:37 12/15/19 06:37 12/15/19 06:37 12/15/19 06:37 12/15/19 06:37 Period Temp Pulse Resp BP Sys/Santiago Pulse Ox Last 24 Hr 97.1 F-98.6 F 88-118 16-18 134-190/87-110 98-100 Intake and Output 12/14/19 12/15/19 12/15/19 21:59 05:59 13:59 Intake Total 1000 2090 1600 Output Total 550 700 Balance 1000 1540 900 Weight 68.039 kg 72.575 kg Intake & Output: Intake & Output 12/14/19 12/15/19 12/15/19 21:59 05:59 13:59 Intake Total 1000 2090 1600 Output Total 550 700 Balance 1000 1540 900 Weight 68.039 kg 72.575 kg Intake: IV 1000 1050 Sodium Chloride 0.9% 1,000 ml @ 1000 1000 150 mls/hr IV .Q6H40M [facility] Rx#: [id number] Zosyn 3.375 gm In Dextrose 5% 50 in Water 50 ml @ 100 mls/hr IV Q6H [facility] Rx#:[id number] Oral 1040 1600 Output: Void Amount 550 700 Other: Meal Nourishment/Supplement Nourishment/Supplement name Granola (2 boxes), Tuna cup, Egg Salad cup Urine Appearance Clear Urine Color Dark Yellow Exam: General: Alert, Awake, No acute Distress Eyes/N/T: EOMI, Head/Neck: neck supple, CV: RRR, 1/6 SM Pulm: Clear b/l, no wheezing/rhonchi/rales Abd: soft, nontender, +BS x4 Ext: Left BKA. Right great toe and little toe previously amputated. 3 middle toes with swelling and tenderness, mild erythema. Foot with tenderness to touch dorsum and plantar sides Neuro: Alert, no focal deficits, moves all extremities, decreased sensations bilateral lower extremity, chronic. Skin: warm/dry Medical - PN: Obj Da - Labs CBC & Chem 7: 12/15/19 05:52 12/15/19 05:52 Labs: Abnormal Lab Results 12/15/19 12/15/19 12/14/19 05:52 05:52 19:21 WBC RBC 3.41 L Hgb 10.0 L Hct 29.9 L Gran # [place] # (Auto) Promyelocytes % 1 H ESR Sodium 132 L Carbon Dioxide 21 L BUN 25 H Creatinine 1.4 H Glucose 283 H Calcium 8.2 L GGT 39 H AST 38 H Alkaline Phosphatase 138 H C-Reactive Protein Albumin 3.1 L Albumin/Globulin Ratio Triglycerides 379 H Urine Protein 100 A Urine Glucose (UA) 50 A Urine Occult Blood >=1.0 A Urine RBC > 182 H Urine WBC 9 H 12/14/19 12/14/19 18:10 18:10 WBC 13.2 H RBC Hgb 11.0 L Hct 31.4 L Gran # 8.62 H [place] # (Auto) 0.91 H Promyelocytes % ESR 111 H Sodium Carbon Dioxide BUN 25 H Creatinine 1.3 H Glucose Calcium GGT AST Alkaline Phosphatase 135 H C-Reactive Protein 2.6 H Albumin Albumin/Globulin Ratio 0.9 L Triglycerides Urine Protein Urine Glucose (UA) Urine Occult Blood Urine RBC Urine WBC Meds: Medications Acetaminophen (Tylenol) 650 mg PO Q6HP PRN PRN Reason: PAIN/FEVER > 101 Hydrocodone Bitart/Acetaminophen ([place] 5/325mg) 1 tab PO Q4HP PRN PRN Reason: PAIN LEVEL 3-6 Last Admin: 12/15/19 07:32 Dose: 1 tab Documented by: Albuterol/Ipratropium (Duoneb) 3 ml NEB Q4HP PRN PRN Reason: Shortness Of Breath Amitriptyline HCl (Elavil) 50 mg PO HS [facility] Last Admin: 12/14/19 23:13 Dose: 50 mg Documented by: Dextrose (Dextrose 50%) 0 ml IV UD PRN PRN Reason: Hypoglycemia Diagnostic Test (Pha) (Accu-Chek) 1 each FS ACHS [facility] Last Admin: 12/15/19 07:03 Dose: 1 each Documented by: Diltiazem HCl (Cardizem Sr) 120 mg PO DAILY [facility] Last Admin: 12/15/19 07:33 Dose: 120 mg Documented by: Gabapentin (Neurontin) 300 mg PO TID [facility] Last Admin: 12/15/19 07:33 Dose: 300 mg Documented by: Glucose (Insta-Glucose) 15 gm PO PRN PRN PRN Reason: Hypoglycemia Heparin Sodium (Porcine) (Heparin) 5,000 unit SQ Q12 [facility] Hydralazine HCl (Apresoline) 0 mg IV Q2HP PRN PRN Reason: Hypertension Last Admin: 12/15/19 03:28 Dose: 10 mg Documented by: Hydromorphone HCl (Dilaudid) 0.25 - 0.5 mg IV Q2HP PRN; Protocol PRN Reason: Per Pain Protocol Potassium Chloride 40 meq/ (Dextrose) 520 mls @ 130 mls/hr IV UD PRN PRN Reason: Potassium < 3 Magnesium Sulfate (Magnesium Sulfate) 2 gm in 50 mls @ 50 mls/hr IV UD PRN PRN Reason: Magnesium </= 1.6 Sodium Chloride (Sodium Chloride 0.9%) 1,000 mls @ 150 mls/hr IV .Q6H40M [facility] Stop: 12/15/19 11:34 Last Admin: 12/15/19 07:35 Dose: 150 mls/hr Documented by: Piperacillin Sod/Tazobactam (Sod 3.375 gm/ Dextrose) 50 mls @ 100 mls/hr IV Q6H [facility]; Protocol Last Admin: 12/15/19 05:50 Dose: 100 mls/hr Documented by: Insulin Glargine (Lantus) 30 unit SQ BID [facility] Last Admin: 12/15/19 07:27 Dose: 30 units Documented by: Insulin Human Lispro (Humalog) 0 unit SQ ACHS [facility]; Protocol Last Admin: 12/15/19 07:29 Dose: 8 units Documented by: Labetalol HCl (Trandate) 0 mg IV Q2HP PRN PRN Reason: Hypertension Ondansetron HCl (Zofran) 4 mg IV Q4HP PRN PRN Reason: Nausea And Vomiting Polyethylene Glycol (Miralax) 17 gm PO DAILYP PRN PRN Reason: Constipation Potassium Chloride (Kdur) 40 meq PO UD PRN PRN Reason: Potssium is 3-3.5 Potassium Chloride (Kdur) 40 meq PO UD PRN PRN Reason: Potassium < 3 Senna (Senokot) 2 tab PO DAILYP PRN PRN Reason: Constipation Sodium Chloride (Saline Flush) 10 ml IV Q8 [facility] Last Admin: 12/15/19 05:51 Dose: Not Given Documented by: Trazodone HCl (Desyrel) 100 mg PO HSP PRN PRN Reason: insomnia Medical - PN: A/P - Time Spent With Patient Total time spent is greater than 50% in coordination of care (as documented) at patient's floor/unit and/or counseling patient: - Narrative A/P Narrative: A: *Right middle toes with cellulitis (great toe and little toe previously amputated): As complication of diabetes -esr 111 *SIRS: 2/2 above, improved *DM, poorly controlled with diabetic wounds and neuropathy: -A1c >14 in early October but she states that since that time her regimen was adjusted and she has been between 120-180 daily *HTN: elevated on admit, is on diltiazem and lisinopril at home *Chronic pain: *Depression: *Hypothyroid: *Tobacco Abuse *CKD III: P: -Zosyn, MRSA screen neg -MRI foot pending -Dr Nichols consult and likely Podiatry -cont CCB, prn IV, hold ACEI for now and f/u renal fxn -home basal and SSI -Smoking cessation counseling -pt/ot -ppx: heparin full code Medical - PN: Qual - VTE Deep Vein Thrombosis/Pulmonary Embolism Present on Admission: No
[2019-12-15] MEDS ORDERED: AMITRIPTYLINE 25 MG TABLET PO SCH (09:00)
[2019-12-15] MEDS: HYDROmorphone 2 MG/ML VIAL IV PRN ×6 (09:30→23:18)
--- NOTE | 2019-12-15 13:36 | General Surgery Consult Note ---
History of Present Illness Patient information: Note initiated : 12/15/19 at 1:31 pm Service Date, if different from initiated Date: [] Patient: Jeanette Gonzalez 44 y/o F admitted on 12/14/19 for lower extremity. Chief Complaint: [] Consult date: 12/15/19 Requesting physician: Jia Villaseñor (Cellulitis Right 2/3/4 toes) History of present illness: I know this patient from previous encounters. Admitted this time around with DFU of ail beds Right 2/3/4 toes There is surrounding CSSSI / Cellulites / Uncontrolled diabetes Inflammatory and Sepsis markers are positive. (CRP/ESR) I have reviewed X Ray of Right foot. OM of terminal phalanx of 2nd toe & ?? 3/4 toes Medications and Allergies Home Medications Medication Instructions Recorded Confirmed Type blood sugar diagnostic See Dose Instructions .ROUTE 05/21/18 11/25/19 History .MEDSUPPLY #20 each blood-glucose meter See Dose Instructions .ROUTE 05/21/18 11/25/19 History .MEDSUPPLY #1 each lancets See Dose Instructions .ROUTE 05/21/18 11/25/19 History .MEDSUPPLY #50 each pen needle, diabetic 1 each MISCELLANE ACHS 05/21/18 11/25/19 History polyethylene glycol 3350 17 g PO QDAY PRN 05/21/18 12/15/19 History traZODone HCL [Trazodone HCl] 100 mg PO HSP PRN 12/18/18 12/15/19 History Ondansetron [Zofran ODT] 4 mg SL Q4-6HP PRN #20 tab 01/19/19 12/15/19 Rx amitriptyline 50 mg tablet 50 mg PO QHS 11/09/19 12/15/19 History diltiazem HCl 120 mg capsule,24 120 mg PO QAM #30 cap 11/25/19 12/15/19 Rx hr,extended release gabapentin 300 mg capsule 300 mg PO TID 11/25/19 12/15/19 History insulin detemir U-100 100 unit/mL 30 unit SUB-Q BID #15 ml 11/25/19 12/15/19 Rx (3 mL) subcutaneous pen insulin lispro 100 unit/mL 1 unit SUB-Q DAILY 11/25/19 12/14/19 History subcutaneous solution lisinopril 20 mg tablet 20 mg PO DAILY tab 11/25/19 12/15/19 History Allergies Allergy/AdvReac Type Severity Reaction Status Date / Time vancomycin Allergy Severe Anaphylaxis Verified 11/25/19 14:33 adhesive tape AdvReac Mild rash and Verified 11/25/19 14:33 allergy escitalopram [From Lexapro] AdvReac Mild Diarrhea Verified 11/25/19 14:33 fentanyl AdvReac Mild halucinations Verified 11/25/19 14:33 and confusion fluoxetine [From Prozac] AdvReac Mild Nausea Verified 11/25/19 14:33 ketorolac [From Toradol] AdvReac Mild Vomiting Verified 11/25/19 14:33 metformin AdvReac Mild Nausea Verified 11/25/19 14:33 methocarbamol AdvReac Mild Nausea Verified 11/25/19 14:33 metoclopramide [From Reglan] AdvReac Mild Shakiness Verified 11/25/19 14:33 morphine AdvReac Mild Headache Verified 11/25/19 14:33 NSAIDS (Non-Steroidal AdvReac Mild Rash Verified 11/25/19 14:33 Anti-Inflamma Paroxetine [From Paxil] AdvReac Mild Nausea Verified 11/25/19 14:33 Penicillins AdvReac Mild Nausea Verified 11/25/19 14:33 promethazine [From Phenergan] AdvReac Mild Shakiness Verified 11/25/19 14:33 Sulfa (Sulfonamide AdvReac Mild Nausea Verified 11/25/19 14:33 Antibiotics) Exam Temp Pulse Resp BP Pulse Ox 97.3 F 94 H 16 149/98 100 12/15/19 11:45 12/15/19 11:45 12/15/19 11:45 12/15/19 11:45 12/15/19 11:45 - General physical appearance well developed, well nourished, no distress, no pain, chronically ill - Eyes PERRL, normal ocular movement - ENT normal pinna, normal nares, normal mucosa, no congestion - Head Head exam IM: Present: atraumatic, normocephalic - Neck no masses, trachea midline, no venous distension - Cardiovascular Cardiovascular exam IM: Present: normal rate and rhythm - Respiratory normal respiratory effort, clear to auscultation - Abdomen Abdomen: Present: soft, non tender, bowel sounds - Integumentary Present: other (Soft tissue CSSSI of RIGHT 234 toes and distal foot, Hyperalgesia and open wounds with exposed nail beds. 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 ) - Neurologic Present: other (Diabetic mixed peripheral neuropathy) - Musculoskeletal Present: other ([place] BKA and Right 1 and 5 toe amputations and other surgical procedures of foot.) - Psychiatric Present: oriented to time, oriented to person, oriented to place, speech is normal, memory intact Results - Labs 12/15/19 05:52 12/15/19 05:52 Abnormal lab results 12/14/19 12/14/19 12/14/19 Range/Units 18:10 18:10 19:21 WBC 13.2 H (4.50-11.00) K/mcL RBC (3.59-5.38) M/mcL Hgb 11.0 L (11.2-15.7) g/dL Hct 31.4 L (34.1-44.9) % Gran # 8.62 H (1.80-8.00) K/mcL [place] # (Auto) 0.91 H (0.10-0.90) K/mcL Promyelocytes % (0-0) % ESR 111 H (0-20) mm/hr Sodium (133-145) mmol/L Carbon Dioxide (22-30) mmol/L BUN 25 H (6-20) mg/dl Creatinine 1.3 H (0.6-1.1) mg/dl Glucose (70-105) mg/dL Calcium (8.6-10.4) mg/dl GGT (5-36) U/L AST (0-37) U/l Alkaline Phosphatase 135 H (39-117) U/L C-Reactive Protein 2.6 H (0.0-0.8) mg/dl Albumin (3.2-5.2) gm/dL Albumin/Globulin Ratio 0.9 L (1.0-2.3) Triglycerides (<150) mg/dl Urine Protein 100 A (NEG) mg/dL Urine Glucose (UA) 50 A (NEG) mg/dL Urine Occult Blood >=1.0 A (<0.03) mg/dL Urine RBC > 182 H (0-1) /hpf Urine WBC 9 H (0-4) /hpf 12/15/19 12/15/19 Range/Units 05:52 05:52 WBC (4.50-11.00) K/mcL RBC 3.41 L (3.59-5.38) M/mcL Hgb 10.0 L (11.2-15.7) g/dL Hct 29.9 L (34.1-44.9) % Gran # (1.80-8.00) K/mcL [place] # (Auto) (0.10-0.90) K/mcL Promyelocytes % 1 H (0-0) % ESR (0-20) mm/hr Sodium 132 L (133-145) mmol/L Carbon Dioxide 21 L (22-30) mmol/L BUN 25 H (6-20) mg/dl Creatinine 1.4 H (0.6-1.1) mg/dl Glucose 283 H (70-105) mg/dL Calcium 8.2 L (8.6-10.4) mg/dl GGT 39 H (5-36) U/L AST 38 H (0-37) U/l Alkaline Phosphatase 138 H (39-117) U/L C-Reactive Protein (0.0-0.8) mg/dl Albumin 3.1 L (3.2-5.2) gm/dL Albumin/Globulin Ratio (1.0-2.3) Triglycerides 379 H (<150) mg/dl Urine Protein (NEG) mg/dL Urine Glucose (UA) (NEG) mg/dL Urine Occult Blood (<0.03) mg/dL Urine RBC (0-1) /hpf Urine WBC (0-4) /hpf Diabetes panel 12/14/19 12/15/19 Range/Units 18:10 05:52 Sodium 133 132 L (133-145) mmol/L Potassium 4.2 4.3 (3.3-5.1) mmol/L Chloride 98 101 (96-108) mmol/L Carbon Dioxide 23 21 L (22-30) mmol/L BUN 25 H 25 H (6-20) mg/dl Creatinine 1.3 H 1.4 H (0.6-1.1) mg/dl Glucose 91 283 H (70-105) mg/dL Calcium 9.6 8.2 L (8.6-10.4) mg/dl AST 21 38 H (0-37) U/l ALT 25 29 (0-40) U/l Alkaline Phosphatase 135 H 138 H (39-117) U/L Total Protein 7.1 6.2 (5.9-8.4) gm/dL Albumin 3.4 3.1 L (3.2-5.2) gm/dL Triglycerides 379 H (<150) mg/dl Calcium panel 12/14/19 12/15/19 Range/Units 18:10 05:52 Calcium 9.6 8.2 L (8.6-10.4) mg/dl Phosphorus 4.3 (2.7-4.5) mg/dL Albumin 3.4 3.1 L (3.2-5.2) gm/dL Pituitary panel 12/14/19 12/15/19 Range/Units 18:10 05:52 Sodium 133 132 L (133-145) mmol/L Potassium 4.2 4.3 (3.3-5.1) mmol/L Chloride 98 101 (96-108) mmol/L Carbon Dioxide 23 21 L (22-30) mmol/L BUN 25 H 25 H (6-20) mg/dl Creatinine 1.3 H 1.4 H (0.6-1.1) mg/dl Glucose 91 283 H (70-105) mg/dL Calcium 9.6 8.2 L (8.6-10.4) mg/dl Adrenal panel 12/14/19 12/15/19 Range/Units 18:10 05:52 Sodium 133 132 L (133-145) mmol/L Potassium 4.2 4.3 (3.3-5.1) mmol/L Chloride 98 101 (96-108) mmol/L Carbon Dioxide 23 21 L (22-30) mmol/L BUN 25 H 25 H (6-20) mg/dl Creatinine 1.3 H 1.4 H (0.6-1.1) mg/dl Glucose 91 283 H (70-105) mg/dL Calcium 9.6 8.2 L (8.6-10.4) mg/dl Total Bilirubin < 0.2 < 0.2 (0.0-1.0) mg/dL AST 21 38 H (0-37) U/l ALT 25 29 (0-40) U/l Alkaline Phosphatase 135 H 138 H (39-117) U/L Total Protein 7.1 6.2 (5.9-8.4) gm/dL Albumin 3.4 3.1 L (3.2-5.2) gm/dL All other labs normal. 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 Patient wishes to await MRI of foot ordered here. She wishes to go to [place] for treatment with Dr. Grande Patient seen with Maxim PARKER and spoke with Kasi Gallagher Hospitalist physician Plan: Agree with current treatment. Will review treatment options with patient / CM tomorrow. (Monday December 16, 2019 ) Status: Acute Priority: Medium
[2019-12-15] MEDS: HEPARIN 5,000 UNIT/ML VIAL SQ SCH ×2 (13:59→20:41)
[2019-12-15] MEDS: AMITRIPTYLINE 25 MG TABLET PO SCH (20:42)
[2019-12-15] MEDS ORDERED: MELATONIN 3 MG TABLET PO SCH (21:00)
[2019-12-15] MEDS ORDERED: INSULIN LISPRO 1 UNIT/0.01 ML UNIT SQ ONE (21:20)
[2019-12-16] MEDS: HYDROcodone/APAP 5/325MG TABLET PO PRN ×3 (01:22→13:47)
[2019-12-16] MEDS: HYDROmorphone 2 MG/ML VIAL IV PRN ×6 (02:19→15:04)
[2019-12-16] MEDS: 0.9 % SODIUM CHLORIDE 10 ML SYRINGE IV SCH ×2 (04:40→14:00)
[2019-12-16] MEDS: PIPERACILLIN SODIUM/TAZOBACTAM 3.375 GM in DEXTROSE 5% IN WATER 50 ML IV SCH ×2 (06:01→11:56)
--- NOTE | 2019-12-16 07:33 | Internal Med Progress Note ---
Medical - PN: Subj Patient information: Note initiated : 12/16/19 at 7:31 am Service Date, if different from initiated Date: [] Patient: Jeanette Gonzalez a 44 y/o F admitted on 12/14/19 for lower extremity. Chief Complaint: [] Interval history: Ms. Gonzalez is a 44 year old F Who reports about a week ago she took off her sock and felt like it got caught on the toenails and they fell off. She is been dressing the wound since then. Toes been fine however today she took off her dressings and felt like the toes were becoming red and swollen and her foot was becoming swollen. She is felt feverish as well. In the ED she has had of a mild leukocytosis and appeared to be infection of the toes and foot. She says her blood sugars used to run for 500s and her last A1c in beginning of October was 15. She says since that time her regimen has been adjusted and she has been between 120 and 180. She also complains of a dry cough past 3 days. And some nausea intermittent vomiting. As well as a headache. She is had amputation of the great toe and little toe on that right foot in the past. 12/15 Did not sleep very well last night, but did not get her home trazodone. Foot/toe swollen and tender. Occasional cough and some chills. No other complaints. 12/16 Patient has occasional headaches. Had some nausea and 1 episode of vomiting middle the night. Foot swollen and tender. Dr. Tabor I feel the patient may benefit from toe amputation. Awaiting MRI. May need to be transferred back up to [place] with Dr. Grande review of Systems: denies headache/fever/nausea/vomiting/chest or abdominal pain/dyspnea. Otherwise see above. - Constitutional Vitals: Vital Signs Temp Pulse Resp BP Pulse Ox 97.7 F 94 H 18 127/73 99 12/16/19 07:13 12/16/19 07:13 12/16/19 07:13 12/16/19 07:13 12/16/19 07:13 Period Temp Pulse Resp BP Sys/Santiago Pulse Ox Last 24 Hr 97.3 F-97.8 F 84-94 16-20 127-154/73-98 96-100 Intake and Output 12/15/19 12/16/19 12/16/19 21:59 05:59 13:59 Intake Total 1090 1650 Output Total 700 1200 Balance 390 450 Weight 73.482 kg Intake & Output: Intake & Output 12/15/19 12/16/19 12/16/19 21:59 05:59 13:59 Intake Total 1090 1650 Output Total 700 1200 Balance 390 450 Weight 73.482 kg Intake: IV 50 50 Zosyn 3.375 gm In Dextrose 5% 50 50 in Water 50 ml @ 100 mls/hr IV Q6H [facility] Rx#:[id number] Oral 1040 1600 Output: Void Amount 700 1200 Other: Meal Nourishment/Supplement Percent of Meal Consumed 100% Feeding Ability Independent Nourishment/Supplement name Carrots and Peanut Butter Urine Appearance Clear Clear Urine Color Pale Pale Urine Odor Strong Exam: General: Alert, Awake, No acute Distress Eyes/N/T: EOMI, Head/Neck: neck supple, CV: RRR, 1/6 SM Pulm: Clear b/l, no wheezing/rhonchi/rales Abd: soft, nontender, +BS x4 Ext: Left BKA. Right great toe and little toe previously amputated. 3 middle toes with swelling and tenderness, mild erythema. Foot with tenderness to touch dorsum and plantar sides Neuro: Alert, no focal deficits, moves all extremities, decreased sensations bilateral lower extremity, chronic. Skin: warm/dry Medical - PN: Obj Da - Labs CBC & Chem 7: 12/15/19 05:52 12/15/19 05:52 Labs: Abnormal Lab Results 12/15/19 12/15/19 12/14/19 05:52 05:52 19:21 WBC RBC 3.41 L Hgb 10.0 L Hct 29.9 L Gran # [place] # (Auto) Promyelocytes % 1 H ESR Sodium 132 L Carbon Dioxide 21 L BUN 25 H Creatinine 1.4 H Glucose 283 H Calcium 8.2 L GGT 39 H AST 38 H Alkaline Phosphatase 138 H C-Reactive Protein Albumin 3.1 L Albumin/Globulin Ratio Triglycerides 379 H Urine Protein 100 A Urine Glucose (UA) 50 A Urine Occult Blood >=1.0 A Urine RBC > 182 H Urine WBC 9 H 12/14/19 12/14/19 18:10 18:10 WBC 13.2 H RBC Hgb 11.0 L Hct 31.4 L Gran # 8.62 H [place] # (Auto) 0.91 H Promyelocytes % ESR 111 H Sodium Carbon Dioxide BUN 25 H Creatinine 1.3 H Glucose Calcium GGT AST Alkaline Phosphatase 135 H C-Reactive Protein 2.6 H Albumin Albumin/Globulin Ratio 0.9 L Triglycerides Urine Protein Urine Glucose (UA) Urine Occult Blood Urine RBC Urine WBC Meds: Medications Acetaminophen (Tylenol) 650 mg PO Q6HP PRN PRN Reason: PAIN/FEVER > 101 Hydrocodone Bitart/Acetaminophen ([place] 5/325mg) 1 tab PO Q4HP PRN PRN Reason: PAIN LEVEL 3-6 Last Admin: 12/16/19 06:02 Dose: 1 tab Documented by: Albuterol/Ipratropium (Duoneb) 3 ml NEB Q4HP PRN PRN Reason: Shortness Of Breath Amitriptyline HCl (Elavil) 50 mg PO HS [facility] Last Admin: 12/15/19 20:42 Dose: 50 mg Documented by: Dextrose (Dextrose 50%) 0 ml IV UD PRN PRN Reason: Hypoglycemia Diagnostic Test (Pha) (Accu-Chek) 1 each FS ACHS [facility] Last Admin: 12/16/19 07:16 Dose: 1 each Documented by: Diltiazem HCl (Cardizem Sr) 120 mg PO DAILY [facility] Last Admin: 12/15/19 07:33 Dose: 120 mg Documented by: Diphenhydramine HCl (Benadryl) 25 mg PO HSP PRN PRN Reason: Insomnia Gabapentin (Neurontin) 300 mg PO TID [facility] Last Admin: 12/15/19 20:42 Dose: 300 mg Documented by: Glucose (Insta-Glucose) 15 gm PO PRN PRN PRN Reason: Hypoglycemia Heparin Sodium (Porcine) (Heparin) 5,000 unit SQ Q12 [facility] Last Admin: 12/15/19 20:41 Dose: 5,000 unit Documented by: Hydralazine HCl (Apresoline) 0 mg IV Q2HP PRN PRN Reason: Hypertension Last Admin: 12/15/19 19:35 Dose: 10 mg Documented by: Hydromorphone HCl (Dilaudid) 0.25 - 0.5 mg IV Q2HP PRN; Protocol PRN Reason: Per Pain Protocol Last Admin: 12/16/19 07:11 Dose: 0.25 mg Documented by: Potassium Chloride 40 meq/ (Dextrose) 520 mls @ 130 mls/hr IV UD PRN PRN Reason: Potassium < 3 Magnesium Sulfate (Magnesium Sulfate) 2 gm in 50 mls @ 50 mls/hr IV UD PRN PRN Reason: Magnesium </= 1.6 Piperacillin Sod/Tazobactam (Sod 3.375 gm/ Dextrose) 50 mls @ 100 mls/hr IV Q6H [facility]; Protocol Last Admin: 12/16/19 06:01 Dose: 100 mls/hr Documented by: Insulin Glargine (Lantus) 30 unit SQ BID [facility] Last Admin: 12/15/19 20:42 Dose: 30 units Documented by: Insulin Human Lispro (Humalog) 0 unit SQ ACHS [facility]; Protocol Labetalol HCl (Trandate) 0 mg IV Q2HP PRN PRN Reason: Hypertension Melatonin (Melatonin 3mg Tablet) 3 mg PO QHS [facility] Last Admin: 12/15/19 20:42 Dose: 3 mg Documented by: Ondansetron HCl (Zofran) 4 mg IV Q4HP PRN PRN Reason: Nausea And Vomiting Polyethylene Glycol (Miralax) 17 gm PO DAILYP PRN PRN Reason: Constipation Potassium Chloride (Kdur) 40 meq PO UD PRN PRN Reason: Potssium is 3-3.5 Potassium Chloride (Kdur) 40 meq PO UD PRN PRN Reason: Potassium < 3 Senna (Senokot) 2 tab PO DAILYP PRN PRN Reason: Constipation Sodium Chloride (Saline Flush) 10 ml IV Q8 [facility] Last Admin: 12/16/19 04:40 Dose: 10 ml Documented by: Trazodone HCl (Desyrel) 100 mg PO HSP PRN PRN Reason: insomnia Last Admin: 12/15/19 20:42 Dose: 100 mg Documented by: Medical - PN: A/P - Time Spent With Patient Total time spent is greater than 50% in coordination of care (as documented) at patient's floor/unit and/or counseling patient: - Narrative A/P Narrative: A: *Right middle toes with cellulitis (great toe and little toe previously amputated): As complication of diabetes -esr 111 *SIRS: 2/2 above, improved *DM, poorly controlled with diabetic wounds and neuropathy: -A1c >14 in early October but she states that since that time her regimen was adjusted and she has been between 120-180 daily *HTN: elevated on admit, is on diltiazem and lisinopril at home *Chronic pain: *Depression: *Hypothyroid: *Tobacco Abuse *CKD III: P: -Zosyn, MRSA screen neg -MRI foot pending -Dr Nichols following; pt may need to go to [place] for toe amputation under care of her surgeon, Dr. Grande -cont CCB, prn IV, hold ACEI for now and f/u renal fxn -home basal and SSI -Smoking cessation counseling -pt/ot -ppx: heparin full code Medical - PN: Qual - VTE Deep Vein Thrombosis/Pulmonary Embolism Present on Admission: No
[2019-12-16 07:59] LABS: Blood Urea Nitrogen 28 mg/dl (6-20); Carbon Dioxide 21 mmol/L (22-30); Glomerular Filtration Rate 42; Glucose 117 mg/dL (70-105)
[2019-12-16 08:05] LABS: Chloride 95 mmol/L (96-108)
--- NOTE | 2019-12-16 09:15 | Transfer Summary ---
Transfer Discharge Sum: Prov Patient information: Note initiated : 12/16/19 at 9:12 am Service Date, if different from initiated Date: [] Patient: Jeanette Gonzalez 44 y/o F admitted on 12/14/19 for lower extremity. Chief Complaint: [] Date of admission: 12/14/19 22:07 Discharge Date: 12/16/19 Primary care physician: BRIANDA Morse Consults: 12/14/19 Consult to Physician [CONS] Stat Comment: Consulting Provider: Jai Villaseñor Reason For Exam: Physician to Consult 12/14/19 21:15 Consult to Physician [CONS] Routine Comment: Consulting Provider: Skyler Nichols Reason For Exam: Physician to Consult Transfer Discharge Sum: Med - Medications Active and Home Medications: Home Medications blood sugar diagnostic See Dose Instructions .ROUTE .MEDSUPPLY #20 each 05/21/18 [History Confirmed 11/25/19] blood-glucose meter See Dose Instructions .ROUTE .MEDSUPPLY #1 each 05/21/18 [History Confirmed 11/25/19] lancets See Dose Instructions .ROUTE .MEDSUPPLY #50 each 05/21/18 [History Confirmed 11/25/19] pen needle, diabetic 1 each MISCELLANE ACHS 05/21/18 [History Confirmed 11/25/19] polyethylene glycol 3350 17 g PO QDAY PRN 05/21/18 [History Confirmed 12/15/19] traZODone HCL [Trazodone HCl] 100 mg PO HSP PRN 12/18/18 [History Confirmed 12/15/19] Ondansetron [Zofran ODT] 4 mg SL Q4-6HP PRN #20 tab 01/19/19 [Rx Confirmed 12/15/19] amitriptyline 50 mg tablet 50 mg PO QHS 11/09/19 [History Confirmed 12/15/19] diltiazem HCl 120 mg capsule,24 hr,extended release 120 mg PO QAM #30 cap 11/25/19 [Rx Confirmed 12/15/19] gabapentin 300 mg capsule 300 mg PO TID 11/25/19 [History Confirmed 12/15/19] insulin detemir U-100 100 unit/mL (3 mL) subcutaneous pen 30 unit SUB-Q BID #15 ml 11/25/19 [Rx Confirmed 12/15/19] insulin lispro 100 unit/mL subcutaneous solution 1 unit SUB-Q DAILY 11/25/19 [History Confirmed 12/14/19] lisinopril 20 mg tablet 20 mg PO DAILY tab 11/25/19 [History Confirmed 12/15/19] Active Medications Acetaminophen (Tylenol) 650 mg PO Q6HP PRN PRN Reason: PAIN/FEVER > 101 Hydrocodone Bitart/Acetaminophen (Erwinna 5/325mg) 1 tab PO Q4HP PRN PRN Reason: PAIN LEVEL 3-6 Last Admin: 12/16/19 06:02 Dose: 1 tab Documented by: Albuterol/Ipratropium (Duoneb) 3 ml NEB Q4HP PRN PRN Reason: Shortness Of Breath Amitriptyline HCl (Elavil) 50 mg PO HS [facility] Last Admin: 12/15/19 20:42 Dose: 50 mg Documented by: Dextrose (Dextrose 50%) 0 ml IV UD PRN PRN Reason: Hypoglycemia Diagnostic Test (Pha) (Accu-Chek) 1 each FS ACHS [facility] Last Admin: 12/16/19 07:16 Dose: 1 each Documented by: Diltiazem HCl (Cardizem Sr) 120 mg PO DAILY [facility] Last Admin: 12/15/19 07:33 Dose: 120 mg Documented by: Diphenhydramine HCl (Benadryl) 25 mg PO HSP PRN PRN Reason: Insomnia Gabapentin (Neurontin) 300 mg PO TID [facility] Last Admin: 12/15/19 20:42 Dose: 300 mg Documented by: Glucose (Insta-Glucose) 15 gm PO PRN PRN PRN Reason: Hypoglycemia Heparin Sodium (Porcine) (Heparin) 5,000 unit SQ Q12 [facility] Last Admin: 12/15/19 20:41 Dose: 5,000 unit Documented by: Hydralazine HCl (Apresoline) 0 mg IV Q2HP PRN PRN Reason: Hypertension Last Admin: 12/15/19 19:35 Dose: 10 mg Documented by: Hydromorphone HCl (Dilaudid) 0.25 - 0.5 mg IV Q2HP PRN; Protocol PRN Reason: Per Pain Protocol Last Admin: 12/16/19 07:11 Dose: 0.25 mg Documented by: Potassium Chloride 40 meq/ (Dextrose) 520 mls @ 130 mls/hr IV UD PRN PRN Reason: Potassium < 3 Magnesium Sulfate (Magnesium Sulfate) 2 gm in 50 mls @ 50 mls/hr IV UD PRN PRN Reason: Magnesium </= 1.6 Piperacillin Sod/Tazobactam (Sod 3.375 gm/ Dextrose) 50 mls @ 100 mls/hr IV Q6H [facility]; Protocol Last Infusion: 12/16/19 06:31 Dose: Infused Documented by: Insulin Glargine (Lantus) 30 unit SQ BID [facility] Last Admin: 12/15/19 20:42 Dose: 30 units Documented by: Insulin Human Lispro (Humalog) 0 unit SQ ACHS [facility]; Protocol Labetalol HCl (Trandate) 0 mg IV Q2HP PRN PRN Reason: Hypertension Melatonin (Melatonin 3mg Tablet) 3 mg PO QHS [facility] Last Admin: 12/15/19 20:42 Dose: 3 mg Documented by: Ondansetron HCl (Zofran) 4 mg IV Q4HP PRN PRN Reason: Nausea And Vomiting Polyethylene Glycol (Miralax) 17 gm PO DAILYP PRN PRN Reason: Constipation Potassium Chloride (Kdur) 40 meq PO UD PRN PRN Reason: Potssium is 3-3.5 Potassium Chloride (Kdur) 40 meq PO UD PRN PRN Reason: Potassium < 3 Senna (Senokot) 2 tab PO DAILYP PRN PRN Reason: Constipation Sodium Chloride (Saline Flush) 10 ml IV Q8 [facility] Last Admin: 12/16/19 04:40 Dose: 10 ml Documented by: Trazodone HCl (Desyrel) 100 mg PO HSP PRN PRN Reason: insomnia Last Admin: 12/15/19 20:42 Dose: 100 mg Documented by: Transfer Discharge Sum: Hosp Hospital course: Ms. Gonzalez is a 44 year old F Ms. Gonzalez is a 44 year old F Who reports about a week ago she took off her sock and felt like it got caught on the toenails and they fell off. She is been dressing the wound since then. Toes been fine however today she took off her dressings and felt like the toes were becoming red and swollen and her foot was becoming swollen. She is felt feverish as well. In the ED she has had of a mild leukocytosis and appeared to be infection of the toes and foot. She says her blood sugars used to run for 500s and her last A1c in beginning of October was 15. She says since that time her regimen has been adjusted and she has been between 120 and 180. She also complains of a dry cough past 3 days. And some nausea intermittent vomiting. As well as a headache. She is had amputation of the great toe and little toe on that right foot in the past. 12/15 Did not sleep very well last night, but did not get her home trazodone. Foot/toe swollen and tender. Occasional cough and some chills. No other complaints. 12/16 Patient has occasional headaches. Had some nausea and 1 episode of vomiting middle the night. Foot swollen and tender. Dr. Nichols feels the patient may benefit from toe amputation. Awaiting MRI. May need to be transferred back up to [place] with Dr. Grande Discussed case with Dr. Grande at [place], still awaiting MRI with conscious sedation and then will revisit with him. unable to get MRI given requirement for sedation on this patient. Reviewed case again with Dr. Grande about this patient and then subsequently his partner Dr. Gates who is on-call today. I then discussed the case with hospitalist Dr. Foley, who will be accepting the patient. Transfer center looking at beds and patient likely be transferred up today. 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: -A1c >14 in early October but she states that since that time her regimen was adjusted and she has been between 120-180 daily *HTN: elevated on admit, is on diltiazem and lisinopril at home *Chronic pain: *Depression: *Hypothyroid: *Tobacco Abuse *CKD III: - Time Spent with Patient Total time spent providing and/or coordinating transfer services: Greater than 30 minutes Transfer Discharge Sum: Exam - Constitutional Vitals: Vital Signs Temp Pulse Resp BP Pulse Ox 12/16/19 07:13 97.7 F 94 H 18 127/73 99 12/16/19 03:01 97.6 F 89 20 134/88 98 12/15/19 23:18 97.8 F 91 H 16 136/85 97 12/15/19 19:17 97.5 F 88 16 154/94 96 12/15/19 15:42 97.5 F 84 18 147/93 97 12/15/19 11:45 97.3 F 94 H 16 149/98 100 Intake and Output 12/15/19 12/16/19 12/16/19 21:59 05:59 13:59 Intake Total 2090 1650 50 Output Total 700 1200 625 Balance 1390 450 -575 Intake: IV 1050 50 50 Sodium Chloride 0.9% 1,000 ml @ 1000 150 mls/hr IV .Q6H40M [facility] Rx#: [id number] Zosyn 3.375 gm In Dextrose 5% 50 50 50 in Water 50 ml @ 100 mls/hr IV Q6H [facility] Rx#:[id number] Oral 1040 1600 Output: Void Amount 700 1200 625 Other: Meal Nourishment/Supplement Percent of Meal Consumed 100% Feeding Ability Independent Nourishment/Supplement name Carrots and Peanut Butter Urine Appearance Clear Clear Clear Urine Color Pale Pale Pale Urine Odor Strong Strong Weight 73.482 kg Transfer Discharge Sum: Data Procedures and tests throughout hospitalization: Pending Orders 12/14/19 Consult to Physician [CONS] Stat 12/14/19 18:30 Blood Culture Stat 12/14/19 21:00 Amitriptyline [Elavil] 50 mg PO HS 12/14/19 21:10 Resuscitation Status Routine 12/14/19 21:15 Consult to Physician [CONS] Routine 12/14/19 22:15 0.9 % Sodium Chloride [Saline Flush] 10 ml IV Q8 Acetaminophen [Tylenol] 650 mg PO Q6HP PRN Dextrose 50% See Dose Instructions IV UD PRN Dextrose [Insta-Glucose] 15 gm PO PRN PRN HYDROcodone/APAP 5/325MG [Erwinna 5/325Mg] 1 tab PO Q4HP PRN Ipratropium/Albuterol [Duoneb] 3 ml NEB Q4HP PRN Labetalol [Trandate] See Dose Instructions IV Q2HP PRN Magnesium Sulfate 2 gm in 50 ml IV UD Ondansetron [Zofran] 4 mg IV Q4HP PRN Polyethylene Glycol 3350 [Miralax] 17 gm PO DAILYP PRN Potassium Chloride 40 meq Dextrose 5% in Water 500 ml IV UD Potassium Chloride [Kdur] 40 meq PO UD PRN Potassium Chloride [Kdur] 40 meq PO UD PRN Sennosides [Senokot] 2 tab PO DAILYP PRN hydrALAZINE [Apresoline] See Dose Instructions IV Q2HP PRN traZODone HCL [Desyrel] 100 mg PO HSP PRN 12/14/19 22:15 Admit as Inpatient Routine Ambulate-Progressive DAILY Elevate head of bed .ROUTINE IV Insertion/Management QSHIFT Intake and Output qshiftio Notify Provider .routine Up to chair PRN Vital Signs Q4H Weight Monitoring QHS RD to Adjust Diet/Supplements as Needed Routine Occupational Therapy Eval & Tx DAILY Physical Therapy Eval & Tx QD-BID Nebulizer management .Routine Pulse Oximetry .ROUTINE 12/14/19 22:16 Consistent Carbohydrate Diet 12/14/19 22:56 Case Management Referral .Routine 12/14/19 22:57 Wound Nurse Referral .Routine 12/14/19 23:00 Piperacillin Sodium/Tazobactam [Zosyn] 3.375 gm Dextrose 5% in Water 50 ml IV Q6H 12/15/19 07:30 Accu-Chek 1 each FS ACHS 12/15/19 08:31 diphenhydrAMINE [Benadryl] 25 mg PO HSP PRN 12/15/19 08:54 MRI [MR foot RT wo/w con] Urgent 12/15/19 09:00 Diltiazem [Cardizem Sr] 120 mg PO DAILY Gabapentin [Neurontin] 300 mg PO TID Heparin 5,000 unit SQ Q12 Insulin Glargine, Human [Lantus] 30 unit SQ BID 12/15/19 09:22 HYDROmorphone [Dilaudid] 0.25 - 0.5 mg IV Q2HP PRN 12/15/19 21:00 Melatonin [Melatonin 3Mg Tablet] 3 mg PO QHS 12/16/19 06:05 Osmolality Urgent 12/16/19 07:30 Insulin Lispro [HumaLOG] See Protocol SQ ACHS 12/16/19 09:04 Creatinine, Spot Urine Urgent Sodium, Urine Random Urgent 12/17/19 05:00 Basic Metabolic Panel Routine Transfer Discharge Sum: A/P - Plan Overall status at transfer: patient is not back to baseline Disposition: Xfer [facility] Quality Measure Queries - VTE Deep Vein Thrombosis/Pulmonary Embolism Present on Admission: No
[2019-12-16] MEDS: INSULIN LISPRO 1 UNIT/0.01 ML UNIT SQ SCH ×2 (09:48→11:41)
[2019-12-16] MEDS ORDERED: LORazepam 2 MG/ML VIAL IV ONE (10:30)
[2019-12-16] MEDS ORDERED: diphenhydrAMINE 25 MG CAPSULE PO ONE (10:38)
[2019-12-16] MEDS: DILTIAZEM 120 MG CAP.XL.24H PO SCH (11:13)
[2019-12-16] MEDS: HEPARIN 5,000 UNIT/ML VIAL SQ SCH (11:13)
[2019-12-16] MEDS: GABAPENTIN 300 MG CAPSULE PO SCH ×2 (11:13→15:04)
[2019-12-16] MEDS: INSULIN GLARGINE, HUMAN 1 UNIT/0.01 ML SQ SCH (11:13)
[2019-12-16] MEDS ORDERED: 0.9 % SODIUM CHLORIDE 750 ML IV ONE (12:34)
--- NOTE | 2019-12-16 12:50 | General Surgery Progress Note ---
Subjective Patient reports: other (Patient seeen with Dorene RN, Inpatient wound care nurse. Progress reviewed with Dr. Villaseñor. ) Narrative: Note initiated : 12/16/19 at 12:47 pm Service Date, if different from initiated Date: [] Patient: Jeanette Gonzalez 44 y/o F admitted on 12/14/19 for lower extremity. Chief Complaint: [] Objective Temp Pulse Resp BP Pulse Ox 97.9 F 92 H 18 124/79 98 12/16/19 11:53 12/16/19 11:53 12/16/19 11:53 12/16/19 11:53 12/16/19 11:53 AVSS. No changes MARYSOL L/E Edema forefoot RIGHT 2/3/4 toes edematous open nail bed. CT scan of RIGHT foot reviewed. Report awaited. D/C vs Transfer plans to [place] noted. - Additional Data Intake & Output - Last 24 hours: Intake & Output 12/14/19 12/15/19 12/16/19 12/17/19 05:59 05:59 05:59 05:59 Intake Total 3090 7040 50 Output Total 1150 3300 625 Balance 1940 3740 -575 Weight 160 lb 162 lb - Labs 12/15/19 05:52 12/16/19 06:05 Diabetes panel 12/16/19 Range/Units 06:05 Sodium 129 L (133-145) mmol/L Potassium 4.0 (3.3-5.1) mmol/L Chloride 95 L (96-108) mmol/L Carbon Dioxide 21 L (22-30) mmol/L BUN 28 H (6-20) mg/dl Creatinine 1.5 H (0.6-1.1) mg/dl Glucose 117 H (70-105) mg/dL Calcium 8.0 L (8.6-10.4) mg/dl Calcium panel 12/16/19 Range/Units 06:05 Calcium 8.0 L (8.6-10.4) mg/dl Pituitary panel 12/16/19 Range/Units 06:05 Sodium 129 L (133-145) mmol/L Potassium 4.0 (3.3-5.1) mmol/L Chloride 95 L (96-108) mmol/L Carbon Dioxide 21 L (22-30) mmol/L BUN 28 H (6-20) mg/dl Creatinine 1.5 H (0.6-1.1) mg/dl Glucose 117 H (70-105) mg/dL Calcium 8.0 L (8.6-10.4) mg/dl Adrenal panel 12/16/19 Range/Units 06:05 Sodium 129 L (133-145) mmol/L Potassium 4.0 (3.3-5.1) mmol/L Chloride 95 L (96-108) mmol/L Carbon Dioxide 21 L (22-30) mmol/L BUN 28 H (6-20) mg/dl Creatinine 1.5 H (0.6-1.1) mg/dl Glucose 117 H (70-105) mg/dL Calcium 8.0 L (8.6-10.4) mg/dl Assessment and Plan (1) 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 Osteomyelitis Tip of 2nd toe Plan: Continue current management. Await developments. - Time Spent With Patient Total time spent is greater than 50% in coordination of care (as documented) at patient's floor/unit and/or counseling patient: less than 15 minutes
--- NOTE | 2019-12-16 13:04 | Cat Scan Report ---
CLINICAL INFORMATION: Diffuse cellulitis. Evaluate for osteomyelitis. COMPARISON: Plain films 12/14/[address] from one year prior to 11/04/2019 TECHNIQUE: 0.625 mm helical slices were obtained through the right foot and ankle. Following reconstruction, 2.5 mm axial, sagittal, coronal reformatted images were processed and reviewed in bone and soft tissue windows. FINDINGS: Amputations of the first and fifth rays at the MTP level have a typical postoperative appearance. No evidence of osteomyelitis either in either agitations. Nor the remainder of the foot and ankle. There are hammertoe deformities of the second, third and fourth digits, mild metatarsus abductus and hallux valgus deformities. There is spurring of the anterior tibial plafond with old ununited fracture through the tip - previously seen. All joint spaces are normal in width and alignment without arthritic change. Moderate diffuse cellulitis seen in the dorsal and lateral soft tissues of the of the foot that particularly the forefoot and midfoot. Os naviculare seen as before IMPRESSION: 1. No CT evidence for osteomyelitis. 2. First and fifth ray amputation at the MTP levels - typical postoperative appearance. 3. Hammertoe deformities second third and fourth digits, hallux valgus and metatarsus abductus. 4. Old ununited fracture through a anterior tibial plafond spur. No change 5. Moderate cellulitis - dorsal and lateral soft tissues of the forefoot and midfoot. Interpreted and Authenticated by: Jeremy Tuttle 12/16/19
== END 2019-12-16 15:34 | disposition short-term general hospital (02) | DRG 638 ==
LOC: ED 16:47 → MEDSUR 22:07
PROVIDERS: ADMIT Internal Medicine; ATTEND Internal Medicine

== ENCOUNTER 2020-11-20 12:46 | Inpatient (IN) ==
[2020-11-20] MEDS ORDERED: ALTEPLASE 100 MG/100 ML VIAL IV ONE (12:51)
--- NOTE | 2020-11-20 13:04 | Cat Scan Report ---
CLINICAL INFORMATION: Code stroke COMPARISON: Brain MRI 03/11/2020. Head CT 05/29/2012. TECHNIQUE: 2.5 mm helical slices were obtained in the skull base to vertex. Following reconstruction, axial reformatted images were reviewed at bone and parenchymal windows. The exam was performed using radiation dose optimization techniques including, but not limited to, automated exposure control, adjustment of the mA and/or kV according to patient size and use of iterative reconstruction technique. FINDINGS: The ventricles, sulci, fissures, and cisterns are normal in size and configuration. No extra-axial fluid collections are identified. 9 mm remote lacunar infarct in the right thalamus again noted.. There is no evidence of hemorrhage, mass effect, or edema. Bone windows show no osseous abnormality. IMPRESSION: 9 mm old lacunar infarct in the right thalamus previously seen. There is no intracerebral hemorrhage, edema or other acute finding. Interpreted and Authenticated by: Jeremy Tuttle 11/20/20
[2020-11-20 13:41] LABS: POC INR 1.2 (0.8-1.2); POC Pro Time 13.7 sec (11.9-14.5)
[2020-11-20 13:44] LABS: POC Creatinine 4.8 mg/dL (0.6-1.2)
[2020-11-20] MEDS ORDERED: INSULIN REGULAR, HUMAN 1 UNIT/0.01 ML UNIT IV ONE (13:44)
[2020-11-20 14:27] LABS: Basophils # (Auto) 0.07 K/mcL (0.00-0.20); Basophils % (Auto) 0.5 % (0.0-2.0); Eosinophils # (Auto) 0.33 K/mcL (0.00-0.70); Eosinophils % (Auto) 2.2 % (0.0-7.0); Hematocrit 28.4 % (36.0-48.0); Hemoglobin 9.2 g/dL (12.0-15.0); Lymphocytes # (Auto) 2.34 K/mcL (1.50-4.80); Lymphocytes % (Auto) 15.7 % (15.0-49.0); Mean Cell Volume 86.3 fL (80.0-100.0); Mean Corpuscular HGB Conc 32.4 g/dL (31.0-36.0); Mean Platelet Volume 9.3 fL (7.4-10.4); Monocytes # (Auto) 0.66 K/mcL (0.10-0.90); Monocytes % (Auto) 4.4 % (1.0-12.0); Neutrophils % (Auto) 77.2 % (38.0-78.0); Platelet Count 300 K/mcL (140-440); RBC 3.29 M/mcL (4.00-5.20); Red Cell Distribution Width 14.5 % (11.5-14.5); WBC 14.9 K/mcL (4.5-11.0)
[2020-11-20 14:53] LABS: Partial Thromboplastin Time 31.1 sec (20.0-37.0)
[2020-11-20 14:54] LABS: INR 0.9 (0.9-1.1)
[2020-11-20 15:12] LABS: ALT/SGPT 10 U/L (<40); AST/SGOT 10 U/L (<32); Albumin/Globulin Ratio 0.9 (1.0-2.3); Alkaline Phosphatase 179 U/L (39-117); Bilirubin,Total < 0.2 mg/dL (0.1-1.0); Blood Urea Nitrogen 43 mg/dL (6-20); Calcium 7.8 mg/dL (8.6-10.4); Carbon Dioxide 11 mmol/L (22-30); Chloride 99 mmol/L (96-108); Globulin 3.3 gm/dL (2.2-3.7); Glomerular Filtration Rate 12; Glucose 529 mg/dL (70-105)
[2020-11-20] MEDS ORDERED: 0.9 % SODIUM CHLORIDE 1,000 ML IV ONE (15:55)
[2020-11-20] MEDS ORDERED: CLOPIDOGREL 75 MG TABLET PO ONE (15:55)
[2020-11-20] MEDS ORDERED: INSULIN REGULAR, HUMAN 50 UNIT in 0.9 % SODIUM CHLORIDE 99.5 ML IV SCH ×2 (16:00→17:45)
[2020-11-20] MEDS ORDERED: CLOPIDOGREL 300 MG TABLET PO ONE (16:01)
--- NOTE | 2020-11-20 16:01 | Emergency Department Note ---
Neuro HPI General Chief Complaint: Stroke Symptoms Stated Complaint: STROKE SYMPTOMS Time Seen by Provider: 11/20/20 13:09 Source: patient Mode of arrival: wheelchair Limitations: physical limitation (Bilateral BKA) History of Present Illness HPI Narrative: Narrative: This individual presented with reporting change in her neurologic status 1 hour prior to arrival. I saw her at 1245 and so it was thought that her change occurred at 1145. This was supposedly her last known normal just minutes before this and then change at that time when family noted a decrease in her smile on the left side and she was complaining of weakness and numbness of her left leg and left arm. Her speech she admits was different. Additional questioning by the stroke neurologist patient reported she actually awoke at 4 AM with numbness in her left arm went back to sleep until 10 AM. Her last known normal was then when she went to bed at 7 PM. She continues to have weakness and numbness. She has decreased sensation to the left side of her face. It is actually worse than it was earlier when she woke up at 4. She has a history of bilateral BKA's, uncontrolled diabetes, poorly controlled hypertension, etc. On Anticoagulants: No Related Data Home Medications Medication Instructions Recorded Confirmed blood sugar diagnostic #20 each 05/21/18 10/07/20 blood-glucose meter #1 each 05/21/18 10/07/20 lancets #50 each 05/21/18 10/07/20 pen needle, diabetic 1 each MISCELLANE ACHS 05/21/18 10/07/20 insulin lispro 100 unit/mL 1 unit SUB-Q DAILY 11/25/19 10/07/20 subcutaneous solution aspirin 81 mg tablet,delayed 81 mg PO QDAY 10/07/20 10/07/20 release cyclobenzaprine 10 mg tablet 10 mg PO BID tab 10/07/20 10/07/20 Previous Rx's Medication Instructions Recorded insulin detemir U-100 100 unit/mL 30 unit SUB-Q BID #15 ml 11/25/19 (3 mL) subcutaneous pen lisinopril 10 mg tablet 10 mg PO QHS #30 tab 07/15/20 diltiazem HCl 240 mg PO BID #60 cap 08/26/20 amitriptyline 25 mg tablet 25 mg PO QHS #30 tab 10/07/20 doxazosin 4 mg tablet 4 mg PO QHS #30 tab 10/07/20 gabapentin 600 mg tablet 1,200 mg PO QHS #60 tab 10/20/20 Allergies Allergy/AdvReac Type Severity Reaction Status Date / Time vancomycin Allergy Severe Anaphylaxis Verified 09/04/20 10:11 adhesive tape AdvReac Mild rash and Verified 09/04/20 10:11 allergy escitalopram [From Lexapro] AdvReac Mild Diarrhea Verified 09/04/20 10:11 fentanyl AdvReac Mild halucinations Verified 09/04/20 10:11 and confusion fluoxetine [From Prozac] AdvReac Mild Nausea Verified 09/04/20 10:11 ketorolac [From Toradol] AdvReac Mild Vomiting Verified 09/04/20 10:11 metformin AdvReac Mild Nausea Verified 09/04/20 10:11 methocarbamol AdvReac Mild Nausea Verified 09/04/20 10:11 metoclopramide [From Reglan] AdvReac Mild Shakiness Verified 09/04/20 10:11 morphine AdvReac Mild Headache Verified 09/04/20 10:11 NSAIDS (Non-Steroidal AdvReac Mild Rash Verified 09/04/20 10:11 Anti-Inflamma Paroxetine [From Paxil] AdvReac Mild Nausea Verified 09/04/20 10:11 Penicillins AdvReac Mild Nausea Verified 09/04/20 10:11 promethazine [From Phenergan] AdvReac Mild Shakiness Verified 09/04/20 10:11 Sulfa (Sulfonamide AdvReac Mild Nausea Verified 09/04/20 10:11 Antibiotics) Review of Systems ROS ROS Narrative: Narrative: Some blurry vision on the left side No chest pain Some shoulder pain and arm tingling pain. Some abdominal pain. No nausea or vomiting or diarrhea or constipation I believe. Admits to some vaginal discharge. PFSH Narrative Patient History Narrative: Narrative: Medical/Surgical/Family History All Active Problems (Updated 11/20/20 @ 16:25 by Edwar Ndiaye DO) Acute cerebrovascular accident (CVA) (Acute) Acute on chronic kidney failure (Acute) DKA (diabetic ketoacidosis) (Acute) Phantom pain after amputation of lower extremity (Acute) Diarrhea (Acute) Yeast dermatitis (Acute) Urinary retention (Chronic) Esophageal pain (Acute) Acute hyperglycemia (Acute) Nausea, vomiting and diarrhea (Acute) Abdominal pain (Acute) Acute urinary retention (Acute) Acute renal failure superimposed on chronic kidney disease (Acute) Urinary tract infection (Acute) Uncontrolled type 2 diabetes mellitus (Acute) Acute urinary retention (Acute) Acute urinary retention (Acute) Bladder infection (Acute) History of chronic kidney disease (Acute) Type 2 diabetes mellitus with diabetic nephropathy, with long-term current use of insulin (Acute) Cellulitis of foot (Acute) Uncontrolled diabetes mellitus due to underlying condition with diabetic arthropathy (Chronic) Postoperative pain (Acute) Chest pain (Acute) Hyperglycemia (Acute) D-dimer, elevated (Acute) Citrobacter infection (Acute) History of kidney stones (Chronic) Essential hypertension (Chronic) Osteomyelitis (Chronic) Nausea (Chronic) Flank pain (Chronic) Diabetic gastroparesis (Chronic) Paronychia (Chronic) Cellulitis, toe (Chronic) Cellulitis (Chronic) Gastroenteritis (Chronic) Abdominal pain (Chronic) Hyperglycemia (Chronic) Osteomyelitis (Chronic) Osteomyelitis due to type 2 diabetes mellitus (Chronic) Chest pain, non-cardiac (Chronic) Hyperglycemia without ketosis (Chronic) retirement prescription opiate use (Chronic) 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) retirement (current) use of insulin (Chronic) Diabetic peripheral neuropathy (Chronic) Benign essential hypertension (Chronic) CKD (chronic kidney disease) stage 2, GFR 60-89 ml/min (Chronic) Hyperlipidemia (Chronic) Sepsis due to undetermined organism without resultant organ failure (Chronic) Pyelonephritis (Chronic) Diabetic foot ulcer (Chronic) Osteomyelitis of toe of right foot (Chronic) Depression, major, recurrent, moderate (Chronic) Genital herpes (Chronic) Hypothyroidism (Chronic) Noncompliance with medication regimen (Chronic) Ex-smoker (Chronic) DDD (degenerative disc disease), lumbosacral (Chronic) Lumbar back pain (Chronic) Chronic back pain (Chronic) Elevated hemoglobin A1c (Chronic) Hepatomegaly (Chronic) Medical History (Updated 11/20/20 @ 16:25 by Edwar Ndiaye DO) Abdominal pain (Chronic) 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 Coagulated blood with some necrotic tissue. Mild sedation with Fentanyl administered. Numbed area with 2% lidocaine pain 7cc local after consent and time-out. Partially closed with 3-0 nylon in horizontal mattress stitch. Patient to continue Doxycycline as her infectious disease physician has perscribed. Follow-up in Podiatry clinic on Monday09/25/17. ARF (acute renal failure) with tubular necrosis (Resolved) ATN with sepsis and post op orthopedic surgery. Acute HD for ~ 1 week Revolved with near normal GFR Benign essential hypertension (Chronic) Goal blood pressure is 130/80. She is on diltiazem 240 mg twice a day, lisinopril 10 mg a day, I have increased her doxazosin from 2 to 4 mg at bedtime Burn of third degree of left foot, subsequent encounter (Resolved) Cellulitis (Resolved) Cellulitis (Chronic) Cellulitis and abscess of foot (Resolved) S/P I/D of abxcess with surgical debridement about a week ago at [facility]. Plan: On going wound care and check non invasive vascular studies. TBI and Sensilase. Cellulitis, toe (Chronic) Chest pain, non-cardiac (Chronic) Chronic back pain (Chronic) Chronic leg pain (Inactive) Citrobacter infection (Acute) Debris in bladder. Urine with high glucose => UTI vs colonization CKD (chronic kidney disease) stage 2, GFR 60-89 ml/min (Chronic) Coagulase-negative staphylococcal infection (Inactive) Contusion of foot with skin surface intact (Resolved) DDD (degenerative disc disease), lumbosacral (Chronic) Depression, major, recurrent, moderate (Chronic) Diabetes (Inactive) Diabetes mellitus with foot ulcer due to multiple causes (Inactive) Continue current wound care for right foot plantar ulcer and fungal infection between toes. Diabetic foot infection (Inactive) Diabetic foot ulcer (Chronic) Diabetic gastroparesis (Chronic) Diabetic peripheral neuropathy (Chronic) Diarrhea (Resolved) Elevated hemoglobin A1c (Chronic) Elevated liver enzymes (Resolved) Elevated sed rate (Resolved) Essential hypertension (Chronic) CCB and ACEi Optimize Rx for DM nephropathy and proteinuria Ex-smoker (Chronic) Flank pain (Chronic) Gangrene of toe (Inactive) Gastroenteritis (Chronic) Genital herpes (Chronic) Hepatomegaly (Chronic) History of kidney stones (Chronic) Currently asymptomatic Hyperglycemia (Chronic) Hyperglycemia due to type 1 diabetes mellitus (Inactive) Hyperglycemia due to type 2 diabetes mellitus (Inactive) Chronic malnutrition. Low pre albumin, improved 07/2017 Nutrition / Dietary consult and Diabetic Teaching. 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 Will change dressings prior to discharge and follow a week following discharge in clinic. Paronychia (Chronic) Pyelonephritis (Chronic) Risk factors are DM & constant glucosuria Sepsis affecting skin (Resolved) CSSSI right 5 th toe. ? Necrotizing skin infection Abscess with superimposed cellulitis. Needs OR debridement, possible toe amputation. 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) Left fifth toe Status post right foot surgery (Chronic) Family History Nausea, vomiting and diarrhea DKA (diabetic ketoacidoses) Diabetes Mother Father Brother Sister Cellulitis Hyperglycemia Osteomyelitis due to type 2 diabetes mellitus Abdominal pain Vomiting Osteomyelitis Social History Smoking Status: Former smoker Alcohol Intake Frequency: does not drink Substance Use: does not use Exam Narrative Narrative: Narrative: General Limitations: physical limitation (Bilateral BKA) General appearance: Present alert and nontoxic Head Head: Present atraumatic and normocephalic Eye Eye: Present normal appearance, PERRL and EOMI ENT ENT: Present mucous membranes moist and other (Left corner of the mouth since week. She describes significant facial paresthesias.) Neck Neck: Present trachea midline; Absent lymphadenopathy and thyromegaly Chest Chest: Present symmetric chest wall rise Respiratory Respiratory: Present normal lung sounds bilaterally; Absent respiratory distress, rales/crackles, wheezes, stridor, accessory muscle use and prolonged expiratory phase Cardiovascular Cardiovascular: Present regular rate and normal rhythm; Absent systolic murmur and diastolic murmur Adbominal Abdominal: Present soft and tenderness (Diffusely.); Absent distention, guarding, rebound, rigidity, organomegaly and mass Extremities Extremities: Present other (Bilateral BKA's); Absent pedal edema and pretibial edema Back Back: Neurological Neurological: Present alert and oriented X3 Expanded Neurological Patient oriented to: Present person, place and time Speech: Present dysarthria (Slight or mild. This waxes and wanes a little bit.) CRANIAL NERVES: EOM function (II, III, IV, ): Normal, facial sensation (V): Normal, facial palsy (VII): Abnormal Left and tongue deviation (XII): Normal CEREBELLAR FUNCTION: finger to nose: Abnormal Left CEREBELLAR FUNCTION: other (Unable to assess due to her BKA's and prostheses removed, in bed.) Motor strength - LUE: 2/5 Motor strength - RUE: 4/5 Motor strength - LLE: 3/5 Motor strength - RLE: 4/5 SENSORY EXAM UPPER EXTREMITY: Abnormal Left: light touch SENSORY EXAM LOWER EXTREMITY: Abnormal Left: light touch Coma Scale Eye Opening: Spontaneous Coma Scale Motor Response: Obeys Commands Coma Scale Verbal Response: Oriented Coma Scale Total: 15 Psychiatric Psychiatric: Present serious and tearful (mildly); Absent depressed, agitated, anxious and poor eye contact Skin Skin: Present warm (WNL) and dry; Absent cyanosis and pallor Course Vital Signs Vital signs: Vital Signs Temperature 98.4 F 11/20/20 12:46 Pulse Rate 109 H 11/20/20 12:46 Respiratory Rate 16 11/20/20 12:46 Blood Pressure 156/96 11/20/20 12:46 Pulse Oximetry (%) 98 11/20/20 12:46 Temperature 98.4 F 11/20/20 12:46 Pulse Rate 96 H 11/20/20 15:31 Respiratory Rate 15 11/20/20 15:31 Blood Pressure 171/106 11/20/20 15:31 Pulse Oximetry (%) 100 11/20/20 15:31 [facility] MDM Narrative Medical decision making narrative: Narrative: 12:45 PM - interviewed and examined. Acute CVA pathway due to new onset stroke symptoms involving the left side of the face, decreased sensory there and decrea sed motor at the corner of the mouth, as well as weakness to the left side and paresthesias of the left side of her body. 12:58 PM - I spoke with Dr. Woods, stroke neurologist, who does not believe she is a TPA candidate given the timing. 1:00 PM - CT read as negative. 1:04 PM - exam by the stroke neurologist included some weakness of the left upper extremity with some drift downward inability to maintain. Some described weakness of the left leg but she did not exhibit at that much. Blood pressure 156/95. CT Eulalia of the head and neck ordered. 1:12 PM - I spoke with the radiologist regarding her elevated creatinine and he recommended going straight to the brain MRI. This was ordered. I also spoke with the surveying technician who can fit her in half an hour or less. Patient gives a history of requiring deep sedation for MRI. The sedation nurse for radiology was able to report that this patient did have sedation at [facility] for an MRI and it required 15 of Versed and 250 of fentanyl. 2:23 PM I spoke with the anesthesiologist who points out that we do not have the equipment safe for use an MRI and therefore they cannot even help do this here as the anesthesiologist. I spoke with patient regarding these things. She would consider additional transportation outside this area if needed. 2:56 PM - I spoke with Dr. Padron, stroke neurologist who points out that in this scenario a CT angio of the head might be worth it and to dialyze her the next day, however, and that her symptoms were somewhat mild on the left side, the value of intervention and the timing is significantly approaching the 24 hours, that it seems unlikely that there is useful thrombectomy and the risk of intervention would be high. Therefore the recommendation is to do ultrasound of her carotids, telemetry monitoring, echocardiogram, observation to establish disposition (rehab versus home), and aspirin. The chance that there is a large vessel occlusion is a very small and the risks are certainly greater than the benefit of being more aggressive at this point. An MRI only tells us if there is a stroke but does not guide therapy. I will discuss with hospitalist. 3:48 PM approximately - spoke with Dr. Jai Villaseñor, hospitalist, who will accept this patient but points out her probable acidosis and probable DKA. He requests an ABG, beta hydroxybutyrate and we discussed adding clopidogrel. The stroke neurologist did not know that she was already on a baby aspirin daily. We will add clopidogrel. He later called back to clarify 300 mg loading rather than just 75. Also will add a liter of fluid and begin insulin drip. Patient's last Accu-Chek had come down to the upper 400s and is being monitored by staff. 4:17 PM - ABG demonstrates a pH of 7.29 and a suppressed PCO2 of 29. This confirms probable DKA. Dr. Villaseñor will be notified. 4:05 PM - spoke with Dr. Walls who is agreeable to follow this patient. Consider future repeat CT to clarify stroke location and/or severity. Lab Data Result diagrams: 11/20/20 13:10 11/20/20 13:10 Labs: Lab Results 11/20/20 11/20/20 11/20/20 Range/Units 13:10 13:10 13:10 WBC 14.9 H (4.5-11.0) K/mcL RBC 3.29 L (4.00-5.20) M/mcL Hgb 9.2 L (12.0-15.0) g/dL Hct 28.4 L (36.0-48.0) % MCV 86.3 (80.0-100.0) fL MCH 28.0 (26.0-34.0) pg MCHC 32.4 (31.0-36.0) g/dL RDW 14.5 (11.5-14.5) % Plt Count 300 (140-440) K/mcL MPV 9.3 (7.4-10.4) fL Neut % (Auto) 77.2 (38.0-78.0) % Lymph % (Auto) 15.7 (15.0-49.0) % [place] % (Auto) 4.4 (1.0-12.0) % Eos % (Auto) 2.2 (0.0-7.0) % Baso % (Auto) 0.5 (0.0-2.0) % Lymph # (Auto) 2.34 (1.50-4.80) K/mcL [place] # (Auto) 0.66 (0.10-0.90) K/mcL Eos # (Auto) 0.33 (0.00-0.70) K/mcL Baso # (Auto) 0.07 (0.00-0.20) K/mcL Absolute Neutrophils 11.46 H (1.80-8.00) K/mcL POC PT 13.7 (11.9-14.5) sec PT 13.0 (11.9-14.5) sec POC INR 1.2 (0.8-1.2) INR 0.9 (0.9-1.1) APTT 31.1 (20.0-37.0) sec Sodium 129 L (133-145) mmol/L Potassium 4.0 (3.3-5.1) mmol/L Chloride 99 (96-108) mmol/L Carbon Dioxide 11 L (22-30) mmol/L Anion Gap 19.0 H (8.0-16.0) BUN 43 H (6-20) mg/dL Creatinine 4.2 H (0.6-1.1) mg/dL POC Creatinine 4.8 H (0.6-1.2) mg/dL GFR Calculation 12 Glucose 529 H* (70-105) mg/dL Calcium 7.8 L (8.6-10.4) mg/dL Total Bilirubin < 0.2 (0.1-1.0) mg/dL AST 10 (<32) U/L ALT 10 (<40) U/L Alkaline Phosphatase 179 H (39-117) U/L Troponin T (<0.03) ng/mL Total Protein 6.3 (5.9-8.4) gm/dL Albumin 3.0 L (3.2-5.2) gm/dL Globulin 3.3 (2.2-3.7) gm/dL Albumin/Globulin Ratio 0.9 L (1.0-2.3) 11/20/20 Range/Units 13:10 WBC (4.5-11.0) K/mcL RBC (4.00-5.20) M/mcL Hgb (12.0-15.0) g/dL Hct (36.0-48.0) % MCV (80.0-100.0) fL MCH (26.0-34.0) pg MCHC (31.0-36.0) g/dL RDW (11.5-14.5) % Plt Count (140-440) K/mcL MPV (7.4-10.4) fL Neut % (Auto) (38.0-78.0) % Lymph % (Auto) (15.0-49.0) % [place] % (Auto) (1.0-12.0) % Eos % (Auto) (0.0-7.0) % Baso % (Auto) (0.0-2.0) % Lymph # (Auto) (1.50-4.80) K/mcL [place] # (Auto) (0.10-0.90) K/mcL Eos # (Auto) (0.00-0.70) K/mcL Baso # (Auto) (0.00-0.20) K/mcL Absolute Neutrophils (1.80-8.00) K/mcL POC PT (11.9-14.5) sec PT (11.9-14.5) sec POC INR (0.8-1.2) INR (0.9-1.1) APTT (20.0-37.0) sec Sodium (133-145) mmol/L Potassium (3.3-5.1) mmol/L Chloride (96-108) mmol/L Carbon Dioxide (22-30) mmol/L Anion Gap (8.0-16.0) BUN (6-20) mg/dL Creatinine (0.6-1.1) mg/dL POC Creatinine (0.6-1.2) mg/dL GFR Calculation Glucose (70-105) mg/dL Calcium (8.6-10.4) mg/dL Total Bilirubin (0.1-1.0) mg/dL AST (<32) U/L ALT (<40) U/L Alkaline Phosphatase (39-117) U/L Troponin T 0.01 (<0.03) ng/mL Total Protein (5.9-8.4) gm/dL Albumin (3.2-5.2) gm/dL Globulin (2.2-3.7) gm/dL Albumin/Globulin Ratio (1.0-2.3) Discharge Plan Patient/Caregiver Discharge Instructions Pt seen by DREDGE ENGINEER/PA only: No Clinical Impression: Acute cerebrovascular accident (CVA) Acute on chronic kidney failure Qualifiers: Acute renal failure type: unspecified Chronic kidney disease stage: stage 3 (moderate) Chronic kidney disease stage 3 subtype: unspecified whether 3a or 3b Qualified Code(s): N17.9 - Acute kidney failure, unspecified DKA (diabetic ketoacidosis) Qualifiers: Diabetes mellitus type: other specified (including FRANKIE) Diabetes mellitus complication detail: without coma Qualified Code(s): E13.10 - Other specified diabetes mellitus with ketoacidosis without coma Patient Disposition: Xfer As Inpt ([facility]) Follow up with: Scot Salamanca ARNP [Primary Care Provider] - Prescriptions: No Action lisinopril 10 mg tablet 10 mg PO QHS Qty: 30 RF: 11 gabapentin 600 mg tablet 1,200 mg PO QHS Qty: 60 RF: 2 (DME) lancets [OneTouch UltraSoft Lancets[place] [facility] [place] Dose Instructions each .ROUTE .MEDSUPPLY Qty: 50 RF: 0 (DME) blood sugar diagnostic [OneTouch Verio test strips] strip See Dose Instructions order .ROUTE .MEDSUPPLY Qty: 20 RF: 0 (DME) blood-glucose meter [OneTouch Verio Flex meter[place] [facility] [place] Dose Instructions each .ROUTE .MEDSUPPLY Qty: 1 RF: 0 pen needle, diabetic 1 each MISCELLANE ACHS RF: 0 Levemir FlexTouch U-100 Insuln 100 unit/mL (3 mL) insulin pen 30 unit SUB-Q BID Qty: 15 RF: 11 insulin lispro 100 unit/mL solution 1 unit SUB-Q DAILY RF: 0 cyclobenzaprine 10 mg tablet 10 mg PO BID RF: 0 aspirin [Adult Aspirin Regimen] 81 mg tablet,delayed release (DR/EC) 81 mg PO QDAY RF: 0 amitriptyline 25 mg tablet 25 mg PO QHS Qty: 30 RF: 11 doxazosin 4 mg tablet 4 mg PO QHS Qty: 30 RF: 11 diltiazem HCl 240 mg capsule,extended release 24 hr 240 mg PO BID Qty: 60 RF: 0
--- NOTE | 2020-11-20 16:42 | Internal Med History&Physical ---
HPI History of Present Illness Patient information: Note initiated : 11/20/20 at 4:28 pm Service Date, if different from initiated Date: [] Patient: Jeanette Goznalez a 45 y/o F admitted on for STROKE SYMPTOMS. Chief Complaint: [] History of present illness: Ms. Gonzalez is a 45 year old F Presents to the ED with left leg weakness numbness. Patient states that she has had diarrhea for the past 3 days nonbloody 2 episodes a day. Other than that she had no other illnesses. She felt relatively well going to bed last night and then woke up with some left-sided weakness at 4 she thought she had just slept on her side funny and then rolled to the right side and then when she woke up later in the morning she still had a left-sided weakness and called her mom and she took her aspirin. And then she developed left facial numbness and then they called the clinic and her mom brought her into the ED. Code stroke was called. CT noncontrast brain was unremarkable for acute pathology. He was unable to undergo CTA because of her renal function and joe ble to undergo MRI as she needs deep sedation for this. MRI under sedation was discussed with anesthesiologist who relayed that we do not have the monitoring equipment to perform MRI under sedation. This was discussed with stroke neurologist who felt that she did not warrant transfer and further imaging and that this could be treated medically. Says she did have a stroke when she was in [place] last year that left her with mild left-sided numbness but it is much more severe at this time. Weakness is also new as well. Blood pressure is significant elevated although it has been significantly elevated each of the previous time she is come to the hospital. Her glucose is significantly elevated in the 500s. Anion gap metabolic acidosis. EKG is normal sinus rhythm. 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 Review of Systems: Pertinent positives as above, headache. Denies fever/chills/nausea/vomiting/chest pain/cough/dyspnea. Remaining 10 point review of system reviewed negative PFSH PFSH All Active Problems (Updated 11/20/20 @ 16:25 by Edwar Ndiaye DO) Acute cerebrovascular accident (CVA) (Acute) Acute on chronic kidney failure (Acute) DKA (diabetic ketoacidosis) (Acute) Phantom pain after amputation of lower extremity (Acute) Diarrhea (Acute) Yeast dermatitis (Acute) Urinary retention (Chronic) Esophageal pain (Acute) Acute hyperglycemia (Acute) Nausea, vomiting and diarrhea (Acute) Abdominal pain (Acute) Acute urinary retention (Acute) Acute renal failure superimposed on chronic kidney disease (Acute) Urinary tract infection (Acute) Uncontrolled type 2 diabetes mellitus (Acute) Acute urinary retention (Acute) Acute urinary retention (Acute) Bladder infection (Acute) History of chronic kidney disease (Acute) Type 2 diabetes mellitus with diabetic nephropathy, with long-term current use of insulin (Acute) Cellulitis of foot (Acute) Uncontrolled diabetes mellitus due to underlying condition with diabetic arthropathy (Chronic) Postoperative pain (Acute) Chest pain (Acute) Hyperglycemia (Acute) D-dimer, elevated (Acute) Citrobacter infection (Acute) History of kidney stones (Chronic) Essential hypertension (Chronic) Osteomyelitis (Chronic) Nausea (Chronic) Flank pain (Chronic) Diabetic gastroparesis (Chronic) Paronychia (Chronic) Cellulitis, toe (Chronic) Cellulitis (Chronic) Gastroenteritis (Chronic) Abdominal pain (Chronic) Hyperglycemia (Chronic) Osteomyelitis (Chronic) Osteomyelitis due to type 2 diabetes mellitus (Chronic) Chest pain, non-cardiac (Chronic) Hyperglycemia without ketosis (Chronic) snf prescription opiate use (Chronic) 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) snf (current) use of insulin (Chronic) Diabetic peripheral neuropathy (Chronic) Benign essential hypertension (Chronic) CKD (chronic kidney disease) stage 2, GFR 60-89 ml/min (Chronic) Hyperlipidemia (Chronic) Sepsis due to undetermined organism without resultant organ failure (Chronic) Pyelonephritis (Chronic) Diabetic foot ulcer (Chronic) Osteomyelitis of toe of right foot (Chronic) Depression, major, recurrent, moderate (Chronic) Genital herpes (Chronic) Hypothyroidism (Chronic) Noncompliance with medication regimen (Chronic) Ex-smoker (Chronic) DDD (degenerative disc disease), lumbosacral (Chronic) Lumbar back pain (Chronic) Chronic back pain (Chronic) Elevated hemoglobin A1c (Chronic) Hepatomegaly (Chronic) Medical History (Updated 11/20/20 @ 16:25 by Edwar Ndiaye DO) Abdominal pain (Chronic) 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 Coagulated blood with some necrotic tissue. Mild sedation with Fentanyl administered. Numbed area with 2% lidocaine pain 7cc local after consent and time-out. Partially closed with 3-0 nylon in horizontal mattress stitch. Patient to continue Doxycycline as her infectious disease physician has perscribed. Follow-up in Podiatry clinic on Monday09/25/17. ARF (acute renal failure) with tubular necrosis (Resolved) ATN with sepsis and post op orthopedic surgery. Acute HD for ~ 1 week Revolved with near normal GFR Benign essential hypertension (Chronic) Goal blood pressure is 130/80. She is on diltiazem 240 mg twice a day, lisinopril 10 mg a day, I have increased her doxazosin from 2 to 4 mg at bedtime Burn of third degree of left foot, subsequent encounter (Resolved) Cellulitis (Resolved) Cellulitis (Chronic) Cellulitis and abscess of foot (Resolved) S/P I/D of abxcess with surgical debridement about a week ago at [facility]. Plan: On going wound care and check non invasive vascular studies. TBI and Sensilase. Cellulitis, toe (Chronic) Chest pain, non-cardiac (Chronic) Chronic back pain (Chronic) Chronic leg pain (Inactive) Citrobacter infection (Acute) Debris in bladder. Urine with high glucose => UTI vs colonization CKD (chronic kidney disease) stage 2, GFR 60-89 ml/min (Chronic) Coagulase-negative staphylococcal infection (Inactive) Contusion of foot with skin surface intact (Resolved) DDD (degenerative disc disease), lumbosacral (Chronic) Depression, major, recurrent, moderate (Chronic) Diabetes (Inactive) Diabetes mellitus with foot ulcer due to multiple causes (Inactive) Continue current wound care for right foot plantar ulcer and fungal infection between toes. Diabetic foot infection (Inactive) Diabetic foot ulcer (Chronic) Diabetic gastroparesis (Chronic) Diabetic peripheral neuropathy (Chronic) Diarrhea (Resolved) Elevated hemoglobin A1c (Chronic) Elevated liver enzymes (Resolved) Elevated sed rate (Resolved) Essential hypertension (Chronic) CCB and ACEi Optimize Rx for DM nephropathy and proteinuria Ex-smoker (Chronic) Flank pain (Chronic) Gangrene of toe (Inactive) Gastroenteritis (Chronic) Genital herpes (Chronic) Hepatomegaly (Chronic) History of kidney stones (Chronic) Currently asymptomatic Hyperglycemia (Chronic) Hyperglycemia due to type 1 diabetes mellitus (Inactive) Hyperglycemia due to type 2 diabetes mellitus (Inactive) Chronic malnutrition. Low pre albumin, improved 07/2017 Nutrition / Dietary consult and Diabetic Teaching. 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 Will change dressings prior to discharge and follow a week following discharge in clinic. Paronychia (Chronic) Pyelonephritis (Chronic) Risk factors are DM & constant glucosuria Sepsis affecting skin (Resolved) CSSSI right 5 th toe. ? Necrotizing skin infection Abscess with superimposed cellulitis. Needs OR debridement, possible toe amputation. 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) Left fifth toe Status post right foot surgery (Chronic) Family History Mother Diabetes Father Diabetes Brother Diabetes Sister Diabetes Other Abdominal pain Cellulitis DKA (diabetic ketoacidoses) Hyperglycemia Nausea, vomiting and diarrhea Osteomyelitis Osteomyelitis due to type 2 diabetes mellitus Vomiting Social History marital status: occupational status: unemployed physical activity: walking smoking status: Former smoker pack-years: 19 alcohol intake frequency: does not drink substance use type: does not use MEDS/ALLERGIES Home Medications and Allergies Home Medications Medication Instructions Recorded Confirmed Type blood sugar diagnostic #20 each 05/21/18 10/07/20 History blood-glucose meter #1 each 05/21/18 10/07/20 History lancets #50 each 05/21/18 10/07/20 History pen needle, diabetic 1 each MISCELLANE ACHS 05/21/18 10/07/20 History insulin detemir U-100 100 unit/mL 30 unit SUB-Q BID #15 ml 11/25/19 10/07/20 Rx (3 mL) subcutaneous pen insulin lispro 100 unit/mL 1 unit SUB-Q DAILY 11/25/19 10/07/20 History subcutaneous solution lisinopril 10 mg tablet 10 mg PO QHS #30 tab 07/15/20 10/07/20 Rx diltiazem HCl 240 mg PO BID #60 cap 08/26/20 10/07/20 Rx amitriptyline 25 mg tablet 25 mg PO QHS #30 tab 10/07/20 10/07/20 Rx aspirin 81 mg tablet,delayed 81 mg PO QDAY 10/07/20 10/07/20 History release cyclobenzaprine 10 mg tablet 10 mg PO BID tab 10/07/20 10/07/20 History doxazosin 4 mg tablet 4 mg PO QHS #30 tab 10/07/20 10/07/20 Rx gabapentin 600 mg tablet 1,200 mg PO QHS #60 tab 10/20/20 Rx Allergies Allergy/AdvReac Type Severity Reaction Status Date / Time vancomycin Allergy Severe Anaphylaxis Verified 09/04/20 10:11 adhesive tape AdvReac Mild rash and Verified 09/04/20 10:11 allergy escitalopram [From Lexapro] AdvReac Mild Diarrhea Verified 09/04/20 10:11 fentanyl AdvReac Mild halucinations Verified 09/04/20 10:11 and confusion fluoxetine [From Prozac] AdvReac Mild Nausea Verified 09/04/20 10:11 ketorolac [From Toradol] AdvReac Mild Vomiting Verified 09/04/20 10:11 metformin AdvReac Mild Nausea Verified 09/04/20 10:11 methocarbamol AdvReac Mild Nausea Verified 09/04/20 10:11 metoclopramide [From Reglan] AdvReac Mild Shakiness Verified 09/04/20 10:11 morphine AdvReac Mild Headache Verified 09/04/20 10:11 NSAIDS (Non-Steroidal AdvReac Mild Rash Verified 09/04/20 10:11 Anti-Inflamma Paroxetine [From Paxil] AdvReac Mild Nausea Verified 09/04/20 10:11 Penicillins AdvReac Mild Nausea Verified 09/04/20 10:11 promethazine [From Phenergan] AdvReac Mild Shakiness Verified 09/04/20 10:11 Sulfa (Sulfonamide AdvReac Mild Nausea Verified 09/04/20 10:11 Antibiotics) EXAM Constitutional Vitals: Temp Pulse Resp BP Pulse Ox 98.4 F 96 H 13 165/103 98 11/20/20 12:46 11/20/20 16:00 11/20/20 16:00 11/20/20 16:00 11/20/20 16:00 Exam: General: Alert, Awake, No acute Distress Eyes/N/T: EOMI, PERRL, dry MM Head/Neck: neck supple, normocephalic atraumatic, CV: RRR, No murmurs, normal s1/s2 Pulm: Clear b/l, no wheezing/rhonchi/rales Abd: soft, minimal tenderness,+BS x4 Ext: no clubbing/cyanosis/edema, b/l BKA Neuro: Alert, right facial droop, left facial numbess, left arm/leg numbness, left hemiparesis, Skin: warm/dry DATA Data Completed and Pending Labs: Labs from last 24 hours 11/20/20 11/20/20 11/20/20 13:10 13:10 13:10 WBC RBC Hgb Hct MCV MCH MCHC RDW Plt Count MPV Neut % (Auto) Lymph % (Auto) [place] % (Auto) Eos % (Auto) Baso % (Auto) Lymph # (Auto) [facility] # (Auto) Eos # (Auto) Baso # (Auto) Absolute Neutrophils POC PT 13.7 PT 13.0 POC INR 1.2 INR 0.9 APTT 31.1 Sodium 129 L Potassium 4.0 Chloride 99 Carbon Dioxide 11 L Anion Gap 19.0 H BUN 43 H Creatinine 4.2 H POC Creatinine 4.8 H GFR Calculation 12 Glucose 529 H* Calcium 7.8 L Total Bilirubin < 0.2 AST 10 ALT 10 Alkaline Phosphatase 179 H Troponin T 0.01 Total Protein 6.3 Albumin 3.0 L Globulin 3.3 Albumin/Globulin Ratio 0.9 L 11/20/20 13:10 WBC 14.9 H RBC 3.29 L Hgb 9.2 L Hct 28.4 L MCV 86.3 MCH 28.0 MCHC 32.4 RDW 14.5 Plt Count 300 MPV 9.3 Neut % (Auto) 77.2 Lymph % (Auto) 15.7 [facility] [facility] % (Auto) 4.4 Eos % (Auto) 2.2 Baso % (Auto) 0.5 Lymph # (Auto) 2.34 [facility] # (Auto) 0.66 Eos # (Auto) 0.33 Baso # (Auto) 0.07 Absolute Neutrophils 11.46 H POC PT PT POC INR INR APTT Sodium Potassium Chloride Carbon Dioxide Anion Gap BUN Creatinine POC Creatinine GFR Calculation Glucose Calcium Total Bilirubin AST ALT Alkaline Phosphatase Troponin T Total Protein Albumin Globulin Albumin/Globulin Ratio A/P Narrative A/P Narrative: A: *CVA with left side numbess/hemiplegia, facial droop: -h/o CVA w/residual left side numbness, has been on ASA, but do not see statin on home list -unable to perform MRI under sedation d/t lack of monitoring equipment *DKA: A1c 10.9 *AG Met Acidosis: 2/2 above *Pseudohyponatremia: *HILDA on CKD IV: follows with Dr. varghese *Anemia, chronic: *Chronic leukocytosis: *DM w/neuropathy: Poorly controlled *HTN: Poorly controlled *Chronic pain: *dePression: *Hypothyroidism: *Diarrhea: stool studies P: -DAPT/STatin -Permissive hypertension first 24-48 hrs -case discussed with stroke neurologist, no need for transfer for further evaluation, treat medically -carotid u/s, echo -IVF -DKA protocol, pending UA/BHB -monitor electrolytes -Nephrology consult -stool studies - -PT/OT -ppx: Heparin Full code Time Spent With Patient Time: Total time spent is greater than 50% in coordination of care (as documented) at patient's floor/unit and/or counseling patient: QUALITY Stroke Symptom Onset Unknown: Yes
--- NOTE | 2020-11-20 17:44 | Ultrasound Report ---
CLINICAL INFORMATION: TIA COMPARISON: None. TECHNIQUE: Spectral Doppler velocity measurements were obtained in the proximal, mid and distal common and internal carotid, both vertebral and proximal external carotid arteries bilaterally. Supplemental color and power Doppler imaging was also obtained to optimize stenosis detection. In reporting, any internal carotid stenosis was indirectly quantified comparing the distal internal carotid velocity. For ratio comparison, the internal carotid artery, at the level of stenosis, was utilized in the numerator and the normal distal internal carotid artery velocity was utilized as the denominator. Velocities are validated with angiographic measurements extrapolated from diameter data - as defined by the Society of Radiologists in Ultrasound Consensus Conference .Radiology 2003; 229; 340 - 346. FINDINGS: See worksheet by the technologist for velocities in PACS IMPRESSION: Both common, internal and external carotid arteries are widely patent. Minimal plaque present in both carotid bifurcation. Antegrade flow present in both vertebral arteries Please correlate with CTA CT Angiography or MRA MR Angiography if surgery is contemplated. Interpreted and Authenticated by: Jeremy Tuttle 11/20/20
[2020-11-20] MEDS ORDERED: IPRATROPIUM/ALBUTEROL 3 ML AMPUL.NEB NEB PRN (17:45)
[2020-11-20] MEDS ORDERED: LABETALOL 5 MG/ML ML IV PRN (17:45)
[2020-11-20] MEDS ORDERED: ASPIRIN 81 MG TAB.CHEW CHEWED ONE (17:45)
[2020-11-20] MEDS ORDERED: ACETAMINOPHEN 325 MG TABLET PO PRN (17:45)
[2020-11-20] MEDS ORDERED: ONDANSETRON 4 MG/2 ML VIAL IV PRN (17:45)
[2020-11-20] MEDS ORDERED: hydrALAZINE 20 MG/ML VIAL IV PRN (17:45)
[2020-11-20] MEDS: LACTATED RINGERS 1,000 ML IV SCH (17:57)
[2020-11-20] MEDS: METOCLOPRAMIDE 10 MG/2 ML VIAL IV SCH (17:58)
[2020-11-20 18:46] LABS: Phosphorous 4.7 mg/dL (2.5-4.5)
[2020-11-20] MEDS ORDERED: INSULIN REGULAR, HUMAN 1 UNIT/0.01 ML UNIT ONE (19:14)
[2020-11-20] MEDS: ATORVASTATIN 40 MG TABLET PO SCH (20:42)
[2020-11-20] MEDS: HYDROcodone/APAP 5/325MG TABLET PO PRN (20:43)
[2020-11-20] MEDS: HEPARIN 5,000 UNIT/ML VIAL SQ SCH (20:43)
[2020-11-20] MEDS: DEXTROSE 5%-NS 1,000 ML IV SCH (21:04)
[2020-11-20] MEDS: 0.9 % SODIUM CHLORIDE 10 ML SYRINGE IV SCH (23:35)
[2020-11-21] MEDS: METOCLOPRAMIDE 10 MG/2 ML VIAL IV SCH ×2 (00:04→05:53)
[2020-11-21 01:43] LABS: Appearance,Urine TURBID (Clear); Bacteria,Urine MOD /hpf (0); Bilirubin,Urine Negative (Negative); Color,Urine YELLOW; Culture Indicated,Urine No; Glucose,Urine (UA) >=500 mg/dL (Negative); Ketones,Urine Negative (Negative); Leukocyte Esterase,Urine 500 /ug (Negative); Nitrate,Urine Negative (Negative); Protein,Urine >=500 mg/dL (Negative); Specific Gravity,Urine 1.008 (1.000-1.035); Urine RBC > 182 /hpf (0-1); Urine Squamous Epithelial Cell 35 /hpf (0-4); Urine WBC > 182 /hpf (0-4); Urobilinogen,Urine Negative
[2020-11-21] MEDS: HYDROcodone/APAP 5/325MG TABLET PO PRN ×4 (03:09→22:18)
[2020-11-21] MEDS: LACTATED RINGERS 1,000 ML IV SCH (05:55)
[2020-11-21] MEDS: 0.9 % SODIUM CHLORIDE 10 ML SYRINGE IV SCH ×3 (06:12→22:13)
[2020-11-21 06:19] LABS: ABG Methemoglobin 0.3 % (0.4-1.5); Total Hemoglobin 8.7 gm/Dl (13.5-16.5); VBG Base Excess -14 (-2-3); VBG HCO3 12.3 mmol/L; VBG Oxygen Saturation 92.6 %; VBG PCO2 28.9 mmHg; VBG PH 7.25 U; VBG PO2 147.4 mmHg; VBG Total CO2 13.2 mmol/L
[2020-11-21 06:28] LABS: Hematocrit 26.2 % (36.0-48.0); Hemoglobin 8.3 g/dL (12.0-15.0); Mean Cell Volume 87.6 fL (80.0-100.0); Mean Corpuscular HGB Conc 31.7 g/dL (31.0-36.0); Mean Platelet Volume 8.8 fL (7.4-10.4); Platelet Count 249 K/mcL (140-440); RBC 2.99 M/mcL (4.00-5.20); Red Cell Distribution Width 14.6 % (11.5-14.5); WBC 13.5 K/mcL (4.5-11.0)
[2020-11-21] MEDS: DEXTROSE 5%-NS 1,000 ML IV SCH (07:07)
[2020-11-21 07:21] LABS: ALT/SGPT 8 U/L (<40); AST/SGOT 10 U/L (<32); Albumin 2.4 gm/dL (3.2-5.2); Albumin/Globulin Ratio 0.7 (1.0-2.3); Alkaline Phosphatase 128 U/L (39-117); Beta Hydroxybutyrate 0.08 mmol/L (<0.27); Bilirubin,Direct < 0.2 mg/dL (<0.3); Bilirubin,Total < 0.2 mg/dL (0.1-1.0); Blood Urea Nitrogen 38 mg/dL (6-20); Calcium 7.5 mg/dL (8.6-10.4); Carbon Dioxide 13 mmol/L (22-30); Chloride 110 mmol/L (96-108); Globulin 3.4 gm/dL (2.2-3.7); Glomerular Filtration Rate 12; Glucose 207 mg/dL (70-105); Lactate Dehydrogenase 140 U/L (135-225); Phosphorous 4.6 mg/dL (2.5-4.5); Triglycerides 398 mg/dL (<150); Uric Acid 5.7 mg/dL (2.5-8.0)
--- NOTE | 2020-11-21 07:52 | Internal Med Progress Note ---
SUBJECTIVE Subjective Patient information: Note initiated : 11/21/20 at 7:46 am Service Date, if different from initiated Date: [] Patient: Jeanette Gonzalez a 45 y/o F admitted on 11/20/20 for STROKE SYMPTOMS. Chief Complaint: [] Interval history: History of present illness: Ms. Gonzalez is a 45 year old F Presents to the ED with left leg weakness numbness. Patient states that she has had diarrhea for the past 3 days nonbloody 2 episodes a day. Other than that she had no other illnesses. She felt relatively well going to bed last night and then woke up with some left-sided weakness at 4 she thought she had just slept on her side funny and then rolled to the right side and then when she woke up later in the morning she still had a left-sided weakness and called her mom and she took her aspirin. And then she developed left facial numbness and then they called the clinic and her mom brought her into the ED. Code stroke was called. CT noncontrast brain was unremarkable for acute pathology. He was unable to undergo CTA because of her renal function and unable to undergo MRI as she needs deep sedation for this. MRI under sedation was discussed with anesthesiologist who relayed that we do not have the monitoring equipment to perform MRI under sedation. This was discussed with stroke neurologist who felt that she did not warrant transfer and further imaging and that this could be treated medically. Says she did have a stroke when she was in [place] last year that left her with mild left-sided numbness but it is much more severe at this time. Weakness is also new as well. Blood pressure is significant elevated although it has been significantly elevated each of the previous time she is come to the hospital. Her glucose is significantly elevated in the 500s. Anion gap metabolic acidosis. EKG is normal sinus rhythm. This is also discussed with her press writer given her worsening renal function. 11/21 Anion gap closed. Will transition to subcu insulin. Left side weakness mildly improved. No diarrhea since admission. Review of Systems: Headache. Denies fever/chills/nausea/vomiting/chest or abdominal pain/cough/dys pnea/diarrhea. Otherwise see above. Constitutional Vitals: Vital Signs Temp Pulse Resp BP Pulse Ox 96.8 F L 90 11 L 182/107 92 11/21/20 03:01 11/21/20 02:00 11/21/20 07:01 11/21/20 07:01 11/21/20 07:01 Period Temp Pulse Resp BP Sys/Santiago Pulse Ox Last 24 Hr 96.8 F-98.4 F 72-109 9-31 148-211/77-125 92-100 Intake and Output 11/20/20 11/21/20 11/21/20 21:59 05:59 13:59 Intake Total 2071 645 4014 Output Total 875 Balance 1585 -140 1004 Weight 68.22 kg 68.22 kg Intake & Output: Intake & Output 11/20/20 11/21/20 11/21/20 21:59 05:59 13:59 Intake Total 9813 660 0413 Output Total 875 Balance 1585 -140 1004 Weight 68.22 kg 68.22 kg Intake: IV 1335 35 1004 Sodium Chloride 0.9% 1,000 ml @ 1000 Wide Open IV BOLUS ONE Rx#: [id number] Dextrose 5%-Ns IV Solution 1, 1000 000 ml @ 100 mls/hr IV .Q10H CHRISTINA Rx#:[id number] HumuLIN R 50 UNIT In Sodium 18 35 4 Chloride 0.9% 99.5 ml @ 2 UNIT/ HR 4 mls/hr IV DUR CHRISTINA Rx#: [id number] Lactated Ringers 1,000 ml @ 100 317 mls/hr IV .Q10H CHRISTINA Rx#: [id number] Oral 250 700 Output: Void Amount 875 Other: Percent of Meal Consumed 100% Feeding Ability Independent Urine Appearance Cloudy Sediment Urine Color Straw Urine Odor Normal Exam: General: Alert, Awake, No acute Distress Eyes/N/T: EOMI, Head/Neck: neck supple, CV: RRR, No murmurs, Pulm: Clear b/l, no wheezing/rhonchi/rales Abd: soft, +BS x4 Ext: no clubbing/cyanosis/edema, b/l BKA Neuro: Alert, left arm/leg numbness, left hemiparesis - right arm mild improvement, right leg subtle improvement Skin: warm/dry OBJ DATA Labs CBC & Chem 7: 11/21/20 05:35 11/21/20 05:35 Labs: Abnormal Lab Results 11/21/20 11/21/20 11/21/20 05:35 05:35 05:35 WBC 13.5 H RBC 2.99 L Hgb 8.3 L Hct 26.2 L RDW 14.6 H Absolute Neutrophils ABG Methemoglobin 0.3 L VBG Base Excess -14 L Carboxyhemoglobin 5.8 H Total Hemoglobin 8.7 L Sodium Chloride 110 H Carbon Dioxide 13 L Anion Gap BUN 38 H Creatinine 4.2 H POC Creatinine Glucose 207 H Calcium 7.5 L Phosphorus 4.6 H Alkaline Phosphatase 128 H Total Protein 5.8 L Albumin 2.4 L Albumin/Globulin Ratio 0.7 L Triglycerides 398 H Cholesterol LDL Cholesterol, Calc Non-HDL Cholesterol HDL Cholesterol Urine Appearance Urine Protein Urine Glucose (UA) Ur Leukocyte Esterase Urine RBC Urine WBC Ur Squamous Epith Cells Urine Bacteria 11/21/20 11/20/20 11/20/20 00:58 13:10 13:10 WBC RBC Hgb Hct RDW Absolute Neutrophils ABG Methemoglobin VBG Base Excess Carboxyhemoglobin Total Hemoglobin Sodium 129 L Chloride Carbon Dioxide 11 L Anion Gap 19.0 H BUN 43 H Creatinine 4.2 H POC Creatinine 4.8 H Glucose 529 H* Calcium 7.8 L Phosphorus 4.7 H Alkaline Phosphatase 179 H Total Protein Albumin 3.0 L Albumin/Globulin Ratio 0.9 L Triglycerides 441 H Cholesterol 219 H LDL Cholesterol, Calc H Non-HDL Cholesterol 188 H HDL Cholesterol 31 L Urine Appearance Turbid A Urine Protein >=500 A Urine Glucose (UA) >=500 A Ur Leukocyte Esterase 500 A Urine RBC > 182 H Urine WBC > 182 H Ur Squamous Epith Cells 35 H Urine Bacteria Mod A 11/20/20 13:10 WBC 14.9 H RBC 3.29 L Hgb 9.2 L Hct 28.4 L RDW Absolute Neutrophils 11.46 H ABG Methemoglobin VBG Base Excess Carboxyhemoglobin Total Hemoglobin Sodium Chloride Carbon Dioxide Anion Gap BUN Creatinine POC Creatinine Glucose Calcium Phosphorus Alkaline Phosphatase Total Protein Albumin Albumin/Globulin Ratio Triglycerides Cholesterol LDL Cholesterol, Calc Non-HDL Cholesterol HDL Cholesterol Urine Appearance Urine Protein Urine Glucose (UA) Ur Leukocyte Esterase Urine RBC Urine WBC Ur Squamous Epith Cells Urine Bacteria Meds: Medications Acetaminophen (Tylenol) 650 mg PO Q4-6HP PRN PRN Reason: PAIN/FEVER > 101 Last Admin: 11/20/20 18:11 Dose: 650 mg Documented by: Hydrocodone Bitart/Acetaminophen (Athelstane 5/325mg) 1 tab PO Q6HP PRN; Protocol PRN Reason: Per Pain Protocol Last Admin: 11/21/20 03:09 Dose: 1 tab Documented by: Albuterol/Ipratropium (Duoneb) 3 ml NEB Q4HRT PRN PRN Reason: sob Aspirin (Aspirin) 81 mg CHEWED DAILY [facility] Atorvastatin Calcium (Lipitor) 80 mg PO HS [facility] Last Admin: 11/20/20 20:42 Dose: 80 mg Documented by: Clopidogrel Bisulfate (Plavix) 75 mg PO DAILY [facility] Diagnostic Test (Pha) (Accu-Chek) 1 each FS Q1 [facility] Last Admin: 11/21/20 07:06 Dose: 1 each Documented by: Heparin Sodium (Porcine) (Heparin) 5,000 unit SQ Q12 [facility] Last Admin: 11/20/20 20:43 Dose: 5,000 unit Documented by: Hydralazine HCl (Apresoline) 0 mg IV Q2HP PRN PRN Reason: Hypertension Last Admin: 11/20/20 19:05 Dose: 10 mg Documented by: Insulin Human Regular 50 unit/ (Sodium Chloride) 100 mls @ 4 mls/hr IV DUR CHRISTINA; Protocol Lactated Ringer's (Lactated Ringers) 1,000 mls @ 100 mls/hr IV .Q10H [facility] Stop: 11/21/20 13:44 Last Admin: 11/21/20 05:55 Dose: Not Given Documented by: Dextrose/Sodium Chloride (Dextrose 5%-Ns Iv Solution) 1,000 mls @ 100 mls/hr IV .Q10H [facility] Last Admin: 11/21/20 07:07 Dose: 100 mls/hr Documented by: Labetalol HCl (Trandate) 0 mg IV Q2HP PRN PRN Reason: Hypertension Metoclopramide HCl (Reglan) 5 mg IV Q6 [facility] Last Admin: 11/21/20 05:53 Dose: Not Given Documented by: Ondansetron HCl (Zofran) 4 mg IV Q4-6HP PRN PRN Reason: Nausea And Vomiting Sodium Chloride (Saline Flush) 10 ml IV Q8 [facility] Last Admin: 11/21/20 06:12 Dose: Not Given Documented by: ABG Interpretation ABG results: 11/21/20 05:35 ABG Methemoglobin 0.3 L VBG pH 7.25 VBG pCO2 28.9 VBG pO2 147.4 VBG HCO3 12.3 VBG Total CO2 13.2 VBG O2 Saturation 92.6 VBG Base Excess -14 L A/P Narrative A/P Narrative: A: *CVA with left side numbess/hemiplegia, facial droop: mild improvement -h/o CVA w/residual left side numbness, has been on ASA, but do not see statin on home list -unable to perform MRI under sedation d/t lack of monitoring equipment -carotids patent, echo pending *DKA: A1c 10.9 *AG Met Acidosis: 2/2 above *Pseudohyponatremia: resolved *?HILDA on CKD IV: follows with Dr. varghese -no change *Anemia, chronic: *Chronic leukocytosis: *DM w/neuropathy: A1c 10.9, Poorly controlled *HTN: Poorly controlled *Chronic pain: *depression: *Hypothyroidism: *Diarrhea: no BM since admit P: -DAPT/STatin -Permissive hypertension first 24-48 hrs -case discussed with stroke neurologist, no need for transfer for further evaluation, treat medically -echo pending -IVF/s -d/c insulin gtt to detemir and SSI -repeat ua -monitor electrolytes -Nephrology consult -stool studies - -PT/OT -ppx: Heparin Full code Time Spent With Patient Time: Total time spent is greater than 50% in coordination of care (as documented) at patient's floor/unit and/or counseling patient: QUALITY Stroke Onset of Symptoms Date: 11/20/20 Onset of Symptoms Time: 04:00 Symptom Onset Unknown: No VTE Deep Vein Thrombosis/Pulmonary Embolism Present on Admission: No
--- NOTE | 2020-11-21 09:29 | Nephrology History & Physical ---
HPI History of Present Illness Patient information: Note initiated : 11/21/20 at 9:25 am Service Date, if different from initiated Date: [] Patient: Jeanette Gonzalez 45 y/o F admitted on 11/20/20 for STROKE SYMPTOMS. Chief Complaint: [] History of present illness: Ms. Gonzalez is a 45 year old Female with terrible diabetic control, diabetic PVD, neuropathy and nephropathy with history of drug- seeking behavior as documented earlier. She presented to the emergency room greater than 12 hours after last exhibiting her baseline neurosensory status. When she awoke she complained of numbness and decreased sensation on her left face left arm and may have had a bit of a left naolabial droop. Presented to the emergency room and was evaluated by the ED p hysician and teleneurology. The bottom line is she was inappropriate for thrombolytics. When the hospitalist was consulted about admission he recognized the electrolyte abnormalities and acidosis as possible DKA and ordered a insulin drip, IV fluids, ABG and beta hydroxybutyrate. The beta hydroxybutyrate was not done in the ER but was drawn with the a.m. labs. When it did return it was not elevated. In terms of her renal function she has progressive renal disease with her last creatinine in the 3's but now it was 4 which could either be interference with the lab measurement of creatinine due to ketone bodies, dehydration, or progression of her renal disease. It is my believe this patient would be a poor candidate for dialysis given advanced peripheral vascular disease and documented noncompliance. 2-year trend in serum creatinine Review of Systems All systems: reviewed and no additional remarkable complaints except as stated Review of systems: 10 pt review and review of ED and attending notes performed PFS PFS All Active Problems (Updated 11/21/20 @ 18:07 by Rojelio Walls MD) CKD stage 5 due to type 2 diabetes mellitus (Acute) Acute cerebrovascular accident (CVA) (Acute) Acute on chronic kidney failure (Acute) DKA (diabetic ketoacidosis) (Acute) Phantom pain after amputation of lower extremity (Acute) Diarrhea (Acute) Yeast dermatitis (Acute) Urinary retention (Chronic) Esophageal pain (Acute) Acute hyperglycemia (Acute) Nausea, vomiting and diarrhea (Acute) Abdominal pain (Acute) Acute urinary retention (Acute) Acute renal failure superimposed on chronic kidney disease (Acute) Urinary tract infection (Acute) Uncontrolled type 2 diabetes mellitus (Acute) Acute urinary retention (Acute) Acute urinary retention (Acute) Bladder infection (Acute) History of chronic kidney disease (Acute) Type 2 diabetes mellitus with diabetic nephropathy, with long-term current use of insulin (Acute) Cellulitis of foot (Acute) Uncontrolled diabetes mellitus due to underlying condition with diabetic arthropathy (Chronic) Postoperative pain (Acute) Chest pain (Acute) Hyperglycemia (Acute) D-dimer, elevated (Acute) Citrobacter infection (Acute) History of kidney stones (Chronic) Essential hypertension (Chronic) Osteomyelitis (Chronic) Nausea (Chronic) Flank pain (Chronic) Diabetic gastroparesis (Chronic) Paronychia (Chronic) Cellulitis, toe (Chronic) Cellulitis (Chronic) Gastroenteritis (Chronic) Abdominal pain (Chronic) Hyperglycemia (Chronic) Osteomyelitis (Chronic) Osteomyelitis due to type 2 diabetes mellitus (Chronic) Chest pain, non-cardiac (Chronic) Hyperglycemia without ketosis (Chronic) 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) 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) senior living (current) use of insulin (Chronic) Diabetic peripheral neuropathy (Chronic) Benign essential hypertension (Chronic) CKD (chronic kidney disease) stage 2, GFR 60-89 ml/min (Chronic) Hyperlipidemia (Chronic) Sepsis due to undetermined organism without resultant organ failure (Chronic) Pyelonephritis (Chronic) Diabetic foot ulcer (Chronic) Osteomyelitis of toe of right foot (Chronic) Depression, major, recurrent, moderate (Chronic) Genital herpes (Chronic) Hypothyroidism (Chronic) Noncompliance with medication regimen (Chronic) Ex-smoker (Chronic) DDD (degenerative disc disease), lumbosacral (Chronic) Lumbar back pain (Chronic) Chronic back pain (Chronic) Elevated hemoglobin A1c (Chronic) Hepatomegaly (Chronic) Medical History (Updated 11/21/20 @ 18:07 by Rojelio Walls MD) Abdominal pain (Chronic) 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 Coagulated blood with some necrotic tissue. Mild sedation with Fentanyl administered. Numbed area with 2% lidocaine pain 7cc local after consent and time-out. Partially closed with 3-0 nylon in horizontal mattress stitch. Patient to continue Doxycycline as her infectious disease physician has perscribed. Follow-up in Podiatry clinic on Monday09/25/17. ARF (acute renal failure) with tubular necrosis (Resolved) ATN with sepsis and post op orthopedic surgery. Acute HD for ~ 1 week Revolved with near normal GFR Benign essential hypertension (Chronic) Goal blood pressure is 130/80. She is on diltiazem 240 mg twice a day, lisinopril 10 mg a day, I have increased her doxazosin from 2 to 4 mg at bedtime Burn of third degree of left foot, subsequent encounter (Resolved) Cellulitis (Resolved) Cellulitis (Chronic) Cellulitis and abscess of foot (Resolved) S/P I/D of abxcess with surgical debridement about a week ago at [facility]. Plan: On going wound care and check non invasive vascular studies. TBI and Sensilase. Cellulitis, toe (Chronic) Chest pain, non-cardiac (Chronic) Chronic back pain (Chronic) Chronic leg pain (Inactive) Citrobacter infection (Acute) Debris in bladder. Urine with high glucose => UTI vs colonization CKD (chronic kidney disease) stage 2, GFR 60-89 ml/min (Chronic) Coagulase-negative staphylococcal infection (Inactive) Contusion of foot with skin surface intact (Resolved) DDD (degenerative disc disease), lumbosacral (Chronic) Depression, major, recurrent, moderate (Chronic) Diabetes (Inactive) Diabetes mellitus with foot ulcer due to multiple causes (Inactive) Continue current wound care for right foot plantar ulcer and fungal infection between toes. Diabetic foot infection (Inactive) Diabetic foot ulcer (Chronic) Diabetic gastroparesis (Chronic) Diabetic peripheral neuropathy (Chronic) Diarrhea (Resolved) Elevated hemoglobin A1c (Chronic) Elevated liver enzymes (Resolved) Elevated sed rate (Resolved) Essential hypertension (Chronic) CCB and ACEi Optimize Rx for DM nephropathy and proteinuria Ex-smoker (Chronic) Flank pain (Chronic) Gangrene of toe (Inactive) Gastroenteritis (Chronic) Genital herpes (Chronic) Hepatomegaly (Chronic) History of kidney stones (Chronic) Currently asymptomatic Hyperglycemia (Chronic) Hyperglycemia due to type 1 diabetes mellitus (Inactive) Hyperglycemia due to type 2 diabetes mellitus (Inactive) Chronic malnutrition. Low pre albumin, improved 07/2017 Nutrition / Dietary consult and Diabetic Teaching. 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 Will change dressings prior to discharge and follow a week following discharge in clinic. Paronychia (Chronic) Pyelonephritis (Chronic) Risk factors are DM & constant glucosuria Sepsis affecting skin (Resolved) CSSSI right 5 th toe. ? Necrotizing skin infection Abscess with superimposed cellulitis. Needs OR debridement, possible toe amputation. 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) Left fifth toe Status post right foot surgery (Chronic) Family History Mother Diabetes Father Diabetes Brother Diabetes Sister Diabetes Other Abdominal pain Cellulitis DKA (diabetic ketoacidoses) Hyperglycemia Nausea, vomiting and diarrhea Osteomyelitis Osteomyelitis due to type 2 diabetes mellitus Vomiting Social History marital status: occupational status: unemployed physical activity: walking smoking status: Former smoker pack-years: 19 alcohol intake frequency: does not drink substance use type: does not use MEDS/ALLERGIES Home Medications and Allergies Home Medications Medication Instructions Recorded Confirmed Type blood sugar diagnostic #20 each 05/21/18 10/07/20 History blood-glucose meter #1 each 05/21/18 10/07/20 History lancets #50 each 05/21/18 10/07/20 History pen needle, diabetic 1 each MISCELLANE ACHS 05/21/18 11/20/20 History insulin detemir U-100 100 unit/mL 30 unit SUB-Q BID #15 ml 11/25/19 11/20/20 Rx (3 mL) subcutaneous pen insulin lispro 100 unit/mL 1 unit SUB-Q DAILY 11/25/19 11/20/20 History subcutaneous solution lisinopril 10 mg tablet 10 mg PO QHS #30 tab 07/15/20 11/20/20 Rx diltiazem HCl 240 mg PO BID #60 cap 08/26/20 11/20/20 Rx amitriptyline 25 mg tablet 25 mg PO QHS #30 tab 10/07/20 11/20/20 Rx aspirin 81 mg tablet,delayed 81 mg PO QDAY 10/07/20 11/20/20 History release cyclobenzaprine 10 mg tablet 10 mg PO BID tab 10/07/20 11/20/20 History doxazosin 4 mg tablet 4 mg PO QHS #30 tab 10/07/20 11/20/20 Rx gabapentin 600 mg tablet 1,200 mg PO QHS #60 tab 10/20/20 11/20/20 Rx Allergies Allergy/AdvReac Type Severity Reaction Status Date / Time vancomycin Allergy Severe Anaphylaxis Verified 11/20/20 22:34 adhesive tape AdvReac Mild rash and Verified 11/20/20 22:34 allergy escitalopram [From Lexapro] AdvReac Mild Diarrhea Verified 11/20/20 22:34 fentanyl AdvReac Mild halucinations Verified 11/20/20 22:34 and confusion fluoxetine [From Prozac] AdvReac Mild Nausea Verified 11/20/20 22:34 ketorolac [From Toradol] AdvReac Mild Vomiting Verified 11/20/20 22:34 metformin AdvReac Mild Nausea Verified 11/20/20 22:34 methocarbamol AdvReac Mild Nausea Verified 11/20/20 22:34 metoclopramide [From Reglan] AdvReac Mild Shakiness Verified 11/20/20 22:34 morphine AdvReac Mild Headache Verified 11/20/20 22:34 NSAIDS (Non-Steroidal AdvReac Mild nausea/rash Verified 11/20/20 22:35 Anti-Inflamma Paroxetine [From Paxil] AdvReac Mild Nausea Verified 11/20/20 22:35 Penicillins AdvReac Mild Nausea Verified 11/20/20 22:35 promethazine [From Phenergan] AdvReac Mild Shakiness Verified 11/20/20 22:35 Sulfa (Sulfonamide AdvReac Mild Nausea Verified 11/20/20 22:35 Antibiotics) Physical Examination Vital Signs Vital signs: Temp Pulse Resp BP Pulse Ox 36.1 C 91 H 9 L 191/112 100 11/21/20 08:01 11/21/20 09:01 11/21/20 09:01 11/21/20 09:01 11/21/20 09:01 General Appearance General appearance: appears started age and chronically ill EENT EENT: ATNC, PERRL, mucous membranes moist, hearing intact and vision intact Neck Neck: no JVD and no carotid bruit Cardiovascular Cardiology: mid-systolic murmur, no edema, regular rate, regular rhythm, normal S1 and normal S2 Gastrointestinal Gastrointestinal: normoactive bowel sounds, no tenderness and no guarding Integumentary Integumentary: no rash Neurologic Neurologic: no asterixis, alert and oriented x3, reflexes 2+ and symmetric (Left facial numbness and decreased LNF), upper extremity weakness (Left) and facial droop (Left) Musculoskeletal Musculoskeletal: deformities (Bilateral BKA) and no clubbing Results Lab Results Result Diagrams: 11/21/20 05:35 11/21/20 05:35 Lab results: Laboratory Results - last 48 hr 11/20/20 11/20/20 11/20/20 13:10 13:10 13:10 WBC 14.9 H RBC 3.29 L Hgb 9.2 L Hct 28.4 L MCV 86.3 MCH 28.0 MCHC 32.4 RDW 14.5 Plt Count 300 MPV 9.3 Neut % (Auto) 77.2 Lymph % (Auto) 15.7 Benzie % (Auto) 4.4 Eos % (Auto) 2.2 Baso % (Auto) 0.5 Lymph # (Auto) 2.34 Benzie # (Auto) 0.66 Eos # (Auto) 0.33 Baso # (Auto) 0.07 Absolute Neutrophils 11.46 H POC PT 13.7 PT 13.0 POC INR 1.2 INR 0.9 APTT 31.1 ABG Methemoglobin VBG pH VBG pCO2 VBG pO2 VBG HCO3 VBG Total CO2 VBG O2 Saturation VBG Base Excess Carboxyhemoglobin Total Hemoglobin Sodium 129 L Potassium 4.0 Chloride 99 Carbon Dioxide 11 L Anion Gap 19.0 H BUN 43 H Creatinine 4.2 H POC Creatinine 4.8 H GFR Calculation 12 Glucose 529 H* Uric Acid Calcium 7.8 L Phosphorus Magnesium Total Bilirubin < 0.2 Direct Bilirubin GGT AST 10 ALT 10 Alkaline Phosphatase 179 H Lactate Dehydrogenase Troponin T Total Protein 6.3 Albumin 3.0 L Globulin 3.3 Albumin/Globulin Ratio 0.9 L Triglycerides Cholesterol LDL Cholesterol, Calc Non-HDL Cholesterol HDL Cholesterol Beta-Hydroxybutyrate Urine Color Urine Appearance Urine pH Ur Specific [place] Urine Protein Urine Glucose (UA) Urine Ketones Urine Occult Blood Urine Nitrate Urine Bilirubin Urine Urobilinogen Ur Leukocyte Esterase Urine RBC Urine WBC Ur Squamous Epith Cells Urine Bacteria Ur Culture Indicated? 11/20/20 11/20/20 11/21/20 13:10 13:10 00:58 WBC RBC Hgb Hct MCV MCH MCHC RDW Plt Count MPV Neut % (Auto) Lymph % (Auto) Benzie % (Auto) Eos % (Auto) Baso % (Auto) Lymph # (Auto) Benzie # (Auto) Eos # (Auto) Baso # (Auto) Absolute Neutrophils POC PT PT POC INR INR APTT ABG Methemoglobin VBG pH VBG pCO2 VBG pO2 VBG HCO3 VBG Total CO2 VBG O2 Saturation VBG Base Excess Carboxyhemoglobin Total Hemoglobin Sodium Potassium Chloride Carbon Dioxide Anion Gap BUN Creatinine POC Creatinine GFR Calculation Glucose Uric Acid Calcium Phosphorus 4.7 H Magnesium 1.7 Total Bilirubin Direct Bilirubin GGT AST ALT Alkaline Phosphatase Lactate Dehydrogenase Troponin T 0.01 Total Protein Albumin Globulin Albumin/Globulin Ratio Triglycerides 441 H Cholesterol 219 H LDL Cholesterol, Calc H Non-HDL Cholesterol 188 H HDL Cholesterol 31 L Beta-Hydroxybutyrate Urine Color Yellow Urine Appearance Turbid A Urine pH 6.0 Ur Specific [place] 1.008 Urine Protein >=500 A Urine Glucose (UA) >=500 A Urine Ketones Negative Urine Occult Blood 0.20 Urine Nitrate Negative Urine Bilirubin Negative Urine Urobilinogen Negative Ur Leukocyte Esterase 500 A Urine RBC > 182 H Urine WBC > 182 H Ur Squamous Epith Cells 35 H Urine Bacteria Mod A Ur Culture Indicated? No 11/21/20 11/21/20 11/21/20 05:35 05:35 05:35 WBC 13.5 H RBC 2.99 L Hgb 8.3 L Hct 26.2 L MCV 87.6 MCH 27.8 MCHC 31.7 RDW 14.6 H Plt Count 249 MPV 8.8 Neut % (Auto) Lymph % (Auto) Benzie % (Auto) Eos % (Auto) Baso % (Auto) Lymph # (Auto) Benzie # (Auto) Eos # (Auto) Baso # (Auto) Absolute Neutrophils POC PT PT POC INR INR APTT ABG Methemoglobin 0.3 L VBG pH 7.25 VBG pCO2 28.9 VBG pO2 147.4 VBG HCO3 12.3 VBG Total CO2 13.2 VBG O2 Saturation 92.6 VBG Base Excess -14 L Carboxyhemoglobin 5.8 H Total Hemoglobin 8.7 L Sodium 133 Potassium 3.6 Chloride 110 H Carbon Dioxide 13 L Anion Gap 10.0 BUN 38 H Creatinine 4.2 H POC Creatinine GFR Calculation 12 Glucose 207 H Uric Acid 5.7 Calcium 7.5 L Phosphorus 4.6 H Magnesium 1.6 Total Bilirubin < 0.2 Direct Bilirubin < 0.2 GGT 19 AST 10 ALT 8 Alkaline Phosphatase 128 H Lactate Dehydrogenase 140 Troponin T Total Protein 5.8 L Albumin 2.4 L Globulin 3.4 Albumin/Globulin Ratio 0.7 L Triglycerides 398 H Cholesterol LDL Cholesterol, Calc Non-HDL Cholesterol HDL Cholesterol Beta-Hydroxybutyrate 0.08 Urine Color Urine Appearance Urine pH Ur Specific [place] Urine Protein Urine Glucose (UA) Urine Ketones Urine Occult Blood Urine Nitrate Urine Bilirubin Urine Urobilinogen Ur Leukocyte Esterase Urine RBC Urine WBC Ur Squamous Epith Cells Urine Bacteria Ur Culture Indicated? A/P Assessment and plan (1) Acute cerebrovascular accident (CVA): Status: Acute Comment: Suspect right thalamic CVA ASA, plavix, Restart antihypertensives tomorrow (2) CKD stage 5 due to type 2 diabetes mellitus: Status: Acute Comment: Will need left AVF and 3 months later initiate [employer] 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 Survival on HD is 25% [id number] per year and in the past compliance has been an issue. (3) Essential hypertension: Status: Chronic Comment: CCB and ACEi Optimize Rx for DM nephropathy and proteinuria Time Spent With Patient Time: Total time spent is greater than 50% in coordination of care (as documented) at patient's floor/unit and/or counseling patient:
[2020-11-21] MEDS: ASPIRIN 81 MG TAB.CHEW CHEWED SCH (09:41)
[2020-11-21] MEDS: CLOPIDOGREL 75 MG TABLET PO SCH (09:41)
[2020-11-21] MEDS: HEPARIN 5,000 UNIT/ML VIAL SQ SCH ×2 (09:42→21:01)
[2020-11-21] MEDS: INSULIN GLARGINE, HUMAN 1 UNIT/0.01 ML SQ SCH ×2 (09:42→21:01)
[2020-11-21] MEDS: SODIUM BICARBONATE 650 MG TABLET PO SCH ×3 (09:43→21:00)
[2020-11-21] MEDS ORDERED: hydrALAZINE 20 MG/ML VIAL IV PRN (09:53)
[2020-11-21] MEDS ORDERED: LABETALOL 5 MG/ML ML IV PRN (09:53)
[2020-11-21] MEDS: 0.45 % SODIUM CHLORIDE 1,000 ML IV SCH ×2 (10:50→22:13)
[2020-11-21 11:00] LABS: Appearance,Urine TURBID (Clear); Bacteria,Urine MOD /hpf (0); Bilirubin,Urine Negative (Negative); Color,Urine YELLOW; Culture Indicated,Urine No; Glucose,Urine (UA) >=500 mg/dL (Negative); Ketones,Urine Negative (Negative); Leukocyte Esterase,Urine 250 /ug (Negative); Nitrate,Urine Negative (Negative); Protein,Urine 100 mg/dL (Negative); Specific Gravity,Urine 1.006 (1.000-1.035); Urine RBC > 182 /hpf (0-1); Urine Squamous Epithelial Cell 98 /hpf (0-4); Urine WBC > 182 /hpf (0-4); Urobilinogen,Urine Negative
[2020-11-21] MEDS ORDERED: INSULIN LISPRO 1 UNIT/0.01 ML UNIT SQ ONE (12:26)
[2020-11-21] MEDS: INSULIN LISPRO 1 UNIT/0.01 ML UNIT SQ SCH ×2 (15:52→20:05)
[2020-11-21] MEDS: CYCLOBENZAPRINE 10 MG TABLET PO SCH (20:59)
[2020-11-21] MEDS ORDERED: AMITRIPTYLINE 25 MG TABLET PO SCH (21:00)
[2020-11-21] MEDS ORDERED: GABAPENTIN 400 MG CAPSULE PO SCH (21:00)
[2020-11-21] MEDS: ATORVASTATIN 40 MG TABLET PO SCH (21:01)
[2020-11-22] MEDS: INSULIN LISPRO 1 UNIT/0.01 ML UNIT SQ SCH ×6 (00:01→20:26)
[2020-11-22] MEDS: HYDROcodone/APAP 5/325MG TABLET PO PRN ×4 (04:11→23:50)
[2020-11-22] MEDS: 0.9 % SODIUM CHLORIDE 10 ML SYRINGE IV SCH ×3 (05:35→21:40)
[2020-11-22 06:54] LABS: ALT/SGPT 10 U/L (<40); AST/SGOT 17 U/L (<32); Albumin 2.5 gm/dL (3.2-5.2); Albumin/Globulin Ratio 0.8 (1.0-2.3); Alkaline Phosphatase 126 U/L (39-117); Bilirubin,Direct < 0.2 mg/dL (<0.3); Bilirubin,Total < 0.2 mg/dL (0.1-1.0); Blood Urea Nitrogen 36 mg/dL (6-20); Calcium 7.7 mg/dL (8.6-10.4); Carbon Dioxide 14 mmol/L (22-30); Chloride 110 mmol/L (96-108); Globulin 3.2 gm/dL (2.2-3.7); Glomerular Filtration Rate 13; Glucose 107 mg/dL (70-105); Lactate Dehydrogenase 129 U/L (135-225); Phosphorous 4.8 mg/dL (2.5-4.5); Triglycerides 429 mg/dL (<150); Uric Acid 5.8 mg/dL (2.5-8.0)
--- NOTE | 2020-11-22 07:57 | Internal Med Progress Note ---
SUBJECTIVE Subjective Patient information: Note initiated : 11/22/20 at 7:44 am Service Date, if different from initiated Date: [] Patient: Jeanette Gonzalez a 45 y/o F admitted on 11/20/20 for STROKE SYMPTOMS. Chief Complaint: [] Interval history: History of present illness: Ms. Gonzalez is a 45 year old F Presents to the ED with left leg weakness numbness. Patient states that she has had diarrhea for the past 3 days nonbloody 2 episodes a day. Other than that she had no other illnesses. She felt relatively well going to bed last night and then woke up with some left-sided weakness at 4 she thought she had just slept on her side funny and then rolled to the right side and then when she woke up later in the morning she still had a left-sided weakness and called her mom and she took her aspirin. And then she developed left facial numbness and then they called the clinic and her mom brought her into the ED. Code stroke was called. CT noncontrast brain was unremarkable for acute pathology. He was unable to undergo CTA because of her renal function and unable to undergo MRI as she needs deep sedation for this. MRI under sedation was discussed with anesthesiologist who relayed that we do not have the monitoring equipment to perform MRI under sedation. This was discussed with stroke neurologist who felt that she did not warrant transfer and further imaging and that this could be treated medically. Says she did have a stroke when she was in [place] last year that left her with mild left-sided numbness but it is much more severe at this time. Weakness is also new as well. Blood pressure is significant elevated although it has been significantly elevated each of the previous time she is come to the hospital. Her glucose is significantly elevated in the 500s. Anion gap metabolic acidosis. EKG is normal sinus rhythm. This is also discussed with her cds sales advisor given her worsening renal function. 11/21 Anion gap closed. Will transition to subcu insulin. Left side weakness mildly improved. No diarrhea since admission. 11/22 Patient slept well. Patient is able to move her arm and leg more. Occasional headaches and chronic pain but otherwise no new complaints. Review of Systems: Headache. Denies fever/chills/nausea/vomiting/chest pain/cough/dyspnea/diarrhea. Otherwise see above. Constitutional Vitals: Vital Signs Temp Pulse Resp BP Pulse Ox 97.2 F 83 8 L 170/95 98 11/22/20 04:01 11/22/20 07:01 11/22/20 06:01 11/22/20 07:01 11/22/20 07:01 Period Temp Pulse Resp BP Sys/Santiago Pulse Ox Last 24 Hr 97 F-98.7 F 83-101 8-20 151-213/86-115 90-100 Intake and Output 11/21/20 11/22/20 11/22/20 21:59 05:59 13:59 Intake Total 350 1606 Output Total 1325 1100 Balance -975 506 Weight 64.818 kg Intake & Output: Intake & Output 11/21/20 11/22/20 11/22/20 21:59 05:59 13:59 Intake Total 350 1606 Output Total 1325 1100 Balance -975 506 Weight 64.818 kg Intake: IV 0 956 Sodium Chloride 0.45% 1,000 ml 956 @ 84 mls/hr IV .[id number] [facility] Rx# :[id number] Dextrose 5%-Ns IV Solution 1, 0 000 ml @ 100 mls/hr IV .Q10H [facility] Rx#:[id number] Oral 350 650 Output: Void Amount 1325 1100 Other: Urine Appearance Cloudy Cloudy Urine Color Pale Pale Straw Straw Urine Odor Normal Normal # Bowel Movements 0 Exam: General: Alert, Awake, No acute Distress Eyes/N/T: EOMI, Head/Neck: neck supple, CV: RRR, No murmurs, Pulm: Clear b/l, no wheezing/rhonchi/rales Abd: soft, +BS x4 Ext: no clubbing/cyanosis/edema, b/l BKA Neuro: Alert, left arm/leg numbness & left hemiparesis - improving Skin: warm/dry OBJ DATA Labs CBC & Chem 7: 11/21/20 05:35 11/22/20 05:05 Labs: Abnormal Lab Results 11/22/20 11/21/20 11/21/20 05:05 09:30 05:35 WBC RBC Hgb Hct RDW Absolute Neutrophils ABG Methemoglobin VBG Base Excess Carboxyhemoglobin Total Hemoglobin Sodium Chloride 110 H 110 H Carbon Dioxide 14 L 13 L Anion Gap BUN 36 H 38 H Creatinine 4.0 H 4.2 H POC Creatinine Glucose 107 H 207 H Calcium 7.7 L 7.5 L Phosphorus 4.8 H 4.6 H Alkaline Phosphatase 126 H 128 H Lactate Dehydrogenase 129 L Total Protein 5.7 L 5.8 L Albumin 2.5 L 2.4 L Albumin/Globulin Ratio 0.8 L 0.7 L Triglycerides 429 H 398 H Cholesterol LDL Cholesterol, Calc Non-HDL Cholesterol HDL Cholesterol Urine Appearance Turbid A Urine Protein 100 A Urine Glucose (UA) >=500 A Ur Leukocyte Esterase 250 A Urine RBC > 182 H Urine WBC > 182 H Ur Squamous Epith Cells 98 H Urine Bacteria Mod A 11/21/20 11/21/20 11/21/20 05:35 05:35 00:58 WBC 13.5 H RBC 2.99 L Hgb 8.3 L Hct 26.2 L RDW 14.6 H Absolute Neutrophils ABG Methemoglobin 0.3 L VBG Base Excess -14 L Carboxyhemoglobin 5.8 H Total Hemoglobin 8.7 L Sodium Chloride Carbon Dioxide Anion Gap BUN Creatinine POC Creatinine Glucose Calcium Phosphorus Alkaline Phosphatase Lactate Dehydrogenase Total Protein Albumin Albumin/Globulin Ratio Triglycerides Cholesterol LDL Cholesterol, Calc Non-HDL Cholesterol HDL Cholesterol Urine Appearance Turbid A Urine Protein >=500 A Urine Glucose (UA) >=500 A Ur Leukocyte Esterase 500 A Urine RBC > 182 H Urine WBC > 182 H Ur Squamous Epith Cells 35 H Urine Bacteria Mod A 11/20/20 11/20/20 11/20/20 13:10 13:10 13:10 WBC 14.9 H RBC 3.29 L Hgb 9.2 L Hct 28.4 L RDW Absolute Neutrophils 11.46 H ABG Methemoglobin VBG Base Excess Carboxyhemoglobin Total Hemoglobin Sodium 129 L Chloride Carbon Dioxide 11 L Anion Gap 19.0 H BUN 43 H Creatinine 4.2 H POC Creatinine 4.8 H Glucose 529 H* Calcium 7.8 L Phosphorus 4.7 H Alkaline Phosphatase 179 H Lactate Dehydrogenase Total Protein Albumin 3.0 L Albumin/Globulin Ratio 0.9 L Triglycerides 441 H Cholesterol 219 H LDL Cholesterol, Calc H Non-HDL Cholesterol 188 H HDL Cholesterol 31 L Urine Appearance Urine Protein Urine Glucose (UA) Ur Leukocyte Esterase Urine RBC Urine WBC Ur Squamous Epith Cells Urine Bacteria Meds: Medications Acetaminophen (Tylenol) 650 mg PO Q4-6HP PRN PRN Reason: PAIN/FEVER > 101 Last Admin: 11/20/20 18:11 Dose: 650 mg Documented by: Hydrocodone Bitart/Acetaminophen (Carpenter 5/325mg) 1 tab PO Q6HP PRN; Protocol PRN Reason: Per Pain Protocol Last Admin: 11/22/20 04:11 Dose: 1 tab Documented by: Albuterol/Ipratropium (Duoneb) 3 ml NEB Q4HRT PRN PRN Reason: sob Amitriptyline HCl (Elavil) 25 mg PO QHS [facility] Last Admin: 11/21/20 21:07 Dose: 25 mg Documented by: Aspirin (Aspirin) 81 mg CHEWED DAILY [facility] Last Admin: 11/21/20 09:41 Dose: 81 mg Documented by: Atorvastatin Calcium (Lipitor) 80 mg PO HS [facility] Last Admin: 11/21/20 21:01 Dose: 80 mg Documented by: Clopidogrel Bisulfate (Plavix) 75 mg PO DAILY [facility] Last Admin: 11/21/20 09:41 Dose: 75 mg Documented by: Cyclobenzaprine HCl (Flexeril) 10 mg PO BID [facility] Last Admin: 11/21/20 20:59 Dose: Not Given Documented by: Diagnostic Test (Pha) (Accu-Chek) 1 each FS Q4 [facility] Last Admin: 11/22/20 03:58 Dose: 1 each Documented by: Gabapentin (Neurontin) 1,200 mg PO QHS [facility] Last Admin: 11/21/20 21:00 Dose: 1,200 mg Documented by: Heparin Sodium (Porcine) (Heparin) 5,000 unit SQ Q12 [facility] Last Admin: 11/21/20 21:01 Dose: 5,000 unit Documented by: Hydralazine HCl (Apresoline) 0 mg IV Q2HP PRN PRN Reason: Hypertension Last Admin: 11/21/20 17:52 Dose: 10 mg Documented by: Sodium Chloride (Sodium Chloride 0.45%) 1,000 mls @ 84 mls/hr IV .[id number] [facility] Last Admin: 11/21/20 22:13 Dose: 84 mls/hr Documented by: Insulin Glargine (Lantus) 30 unit SQ BID [facility] Last Admin: 11/21/20 21:01 Dose: 30 units Documented by: Insulin Human Lispro (Humalog) 0 unit SQ Q4 [facility]; Protocol Last Admin: 11/22/20 03:58 Dose: Not Given Documented by: Labetalol HCl (Trandate) 0 mg IV Q2HP PRN PRN Reason: Hypertension Ondansetron HCl (Zofran) 4 mg IV Q4-6HP PRN PRN Reason: Nausea And Vomiting Sodium Chloride (Saline Flush) 10 ml IV Q8 [facility] Last Admin: 11/22/20 05:35 Dose: 10 ml Documented by: ABG Interpretation ABG results: 11/21/20 05:35 ABG Methemoglobin 0.3 L VBG pH 7.25 VBG pCO2 28.9 VBG pO2 147.4 VBG HCO3 12.3 VBG Total CO2 13.2 VBG O2 Saturation 92.6 VBG Base Excess -14 L A/P Narrative A/P Narrative: A: *CVA with left side numbess/hemiplegia, facial droop: slowly improving -h/o CVA w/residual left side numbness, has been on ASA, but do not see statin on home list -unable to perform MRI under sedation d/t lack of monitoring equipment -carotids patent, echo pending *DKA: A1c 10.9 *AG Met Acidosis: 2/2 above and renal dz *Pseudohyponatremia: resolved *?HILDA on CKD IV: follows with Dr. varghese -stable *Anemia, chronic: *Chronic leukocytosis: *DM w/neuropathy: A1c 10.9, Poorly controlled *HTN: Poorly controlled *Chronic pain: *Depression: *Hypothyroidism: *Diarrhea: no BM since admit *Hyperlipidemia/Hypertriglyceridemia: P: -DAPT/STatin -restart home BP meds -case discussed with stroke neurologist in ED -echo pending -cont detemir and SSI -urine cx -monitor electrolytes -Nephrology following -PT/OT -ppx: Heparin Full code Time Spent With Patient Time: Total time spent is greater than 50% in coordination of care (as documented) at patient's floor/unit and/or counseling patient: QUALITY Stroke Onset of Symptoms Date: 11/20/20 Onset of Symptoms Time: 04:00 Symptom Onset Unknown: No VTE Deep Vein Thrombosis/Pulmonary Embolism Present on Admission: No
[2020-11-22] MEDS ORDERED: SODIUM BICARBONATE 650 MG TABLET PO SCH ×2 (09:00→15:00)
[2020-11-22] MEDS ORDERED: DILTIAZEM 240 MG CAP.XL.24H PO SCH ×2 (09:00→21:00)
[2020-11-22] MEDS: ASPIRIN 81 MG TAB.CHEW CHEWED SCH (09:24)
[2020-11-22] MEDS: CYCLOBENZAPRINE 10 MG TABLET PO SCH ×2 (09:24→20:12)
[2020-11-22] MEDS: CLOPIDOGREL 75 MG TABLET PO SCH (09:24)
[2020-11-22] MEDS: HEPARIN 5,000 UNIT/ML VIAL SQ SCH ×2 (09:24→20:11)
[2020-11-22] MEDS: INSULIN GLARGINE, HUMAN 1 UNIT/0.01 ML SQ SCH ×2 (09:25→21:39)
--- NOTE | 2020-11-22 09:54 | Cat Scan Report ---
CLINICAL INFORMATION: Left sided weakness. Evaluate for right cerebral CVA COMPARISON: Head CT 11/20/2020. TECHNIQUE: 2.5 mm helical slices were obtained in the skull base to vertex. Following reconstruction, axial reformatted images were reviewed at bone and parenchymal windows. The exam was performed using radiation dose optimization techniques including, but not limited to, automated exposure control, adjustment of the mA and/or kV according to patient size and use of iterative reconstruction technique. FINDINGS: The ventricles, sulci, fissures, and cisterns are normal in size and configuration. No extra-axial fluid collections are identified. 9 mm remote lacunar infarct in the right thalamus again noted.. There is no evidence of hemorrhage, mass effect, or edema. Bone windows show no osseous abnormality. IMPRESSION: 9 mm old lacunar infarct in the right thalamus as previously seen. There is no intracerebral hemorrhage, edema or other acute finding. No change Interpreted and Authenticated by: Jeremy Tuttle 11/22/20
[2020-11-22] MEDS ORDERED: FLU VACC QS2020-21(6MOS UP)/PF 60 MCG/0.5 ML SYRINGE IM ONE ×2 (10:00→11:04)
[2020-11-22] MEDS ORDERED: hydrALAZINE 20 MG/ML VIAL IV PRN ×2 (10:03→10:18)
[2020-11-22] MEDS ORDERED: LABETALOL 5 MG/ML ML IV PRN ×2 (10:03→10:18)
[2020-11-22] MEDS ORDERED: IPRATROPIUM/ALBUTEROL 3 ML AMPUL.NEB NEB PRN (10:18)
[2020-11-22] MEDS ORDERED: ONDANSETRON 4 MG/2 ML VIAL IV PRN (10:18)
--- NOTE | 2020-11-22 10:23 | Discharge Summary ---
Discharge Provider Provider Patient information: Note initiated : 11/22/20 at 10:22 am Service Date, if different from initiated Date: [] Patient: Jeanette Gonzalez 45 y/o F admitted on 11/20/20 for STROKE SYMPTOMS. Chief Complaint: [] Date of admission: 11/20/20 17:40 Primary care physician: BRIANDA Morse Consults: 11/20/20 Consult to Physician [CONS] Stat Comment: Consulting Provider: Jai Villaseñor Reason For Exam: Physician to Consult 11/20/20 12:55 Consult to Physician [CONS] Stat Comment: Consulting Provider: Telestroke,Provider Reason For Exam: Physician to Consult 11/21/20 07:57 Consult to Physician [CONS] Routine Comment: Consulting Provider: Rojelio Walls Reason For Exam: Physician to Consult Discharge Meds Discharge Medications Home Medications blood sugar diagnostic #20 each 05/21/18 [History Confirmed 10/07/20 Last Taken 01/29/19 18:00] blood-glucose meter #1 each 05/21/18 [History Confirmed 10/07/20 Last Taken 01/29/19 18:00] lancets #50 each 05/21/18 [History Confirmed 10/07/20 Last Taken 01/29/19 18:00] pen needle, diabetic 1 each MISCELLANE ACHS 05/21/18 [History Confirmed 11/20/20 Last Taken 11/19/20 21:00 4 units] insulin detemir U-100 100 unit/mL (3 mL) subcutaneous pen 30 unit SUB-Q BID #15 ml 11/25/19 [Rx Confirmed 11/20/20 Last Taken 11/19/20 21:00] insulin lispro 100 unit/mL subcutaneous solution 1 unit SUB-Q DAILY 11/25/19 [History Confirmed 11/20/20 Last Taken 11/19/20 10:00] lisinopril 10 mg tablet 10 mg PO QHS #30 tab 07/15/20 [Rx Confirmed 11/20/20 Last Taken 11/19/20 21:00] diltiazem HCl 240 mg PO BID #60 cap 08/26/20 [Rx Confirmed 11/20/20 Last Taken 11/19/20 21:00] amitriptyline 25 mg tablet 25 mg PO QHS #30 tab 10/07/20 [Rx Confirmed 11/20/20 Last Taken 11/19/20 21:00] aspirin 81 mg tablet,delayed release 81 mg PO QDAY 10/07/20 [History Confirmed 11/20/20 Last Taken 11/19/20 10:00] cyclobenzaprine 10 mg tablet 10 mg PO BID tab 10/07/20 [History Confirmed 11/20/20 Last Taken 11/19/20 21:00] doxazosin 4 mg tablet 4 mg PO QHS #30 tab 10/07/20 [Rx Confirmed 11/20/20 Last Taken 11/12/20 21:00] gabapentin 600 mg tablet 1,200 mg PO QHS #60 tab 10/20/20 [Rx Confirmed 11/20/20 Last Taken 11/19/20 10:00 300] atorvastatin 80 mg PO HS #30 tab 11/22/20 [Rx Last Taken Unknown] clopidogrel 75 mg PO DAILY #30 tab 11/22/20 [Rx Last Taken Unknown] COURSE Hospital Course Hospital course: History of present illness: Ms. Gonzalez is a 45 year old F Presents to the ED with left leg weakness numbness. Patient states that she has had diarrhea for the past 3 days nonbloody 2 episodes a day. Other than that she had no other illnesses. She felt relatively well going to bed last night and then woke up with some left-sided weakness at 4 she thought she had just slept on her side funny and then rolled to the right side and then when she woke up later in the morning she still had a left-sided weakness and called her mom and she took her aspirin. And then she developed left facial numbness and then they called the clinic and her mom brought her into the ED. Code stroke was called. CT noncontrast brain was unremarkable for acute pathology. He was unable to undergo CTA because of her renal function and unable to undergo MRI as she needs deep sedation for this. MRI under sedation was discussed with anesthesiologist who relayed that we do not have the monitoring equipment to perform MRI under sedation. This was discussed with stroke neurologist who felt that she did not warrant transfer and further imaging and that this could be treated medically. Says she did have a stroke when she was in [place] last year that left her with mild left-sided numbness but it is much more severe at this time. Weakness is also new as well. Blood pressure is significant elevated although it has been significantly elevated each of the previous time she is come to the hospital. Her glucose is significantly elevated in the 500s. Anion gap metabolic acidosis. EKG is normal sinus rhythm. This is also discussed with her profile grinder technician given her worsening renal function. 11/21 Anion gap closed. Will transition to subcu insulin. Left side weakness mildly improved. No diarrhea since admission. 11/22 Patient slept well. Patient is able to move her arm and leg more. Occasional headaches and chronic pain but otherwise no new complaints. A: *CVA with left side numbess/hemiplegia, facial droop: slowly improving -h/o CVA w/residual left side numbness, has been on ASA, but do not see statin on home list -unable to perform MRI under sedation d/t lack of monitoring equipment -carotids patent, echo pending *DKA: A1c 10.9 *AG Met Acidosis: 2/2 above and renal dz *Pseudohyponatremia: resolved *?HILDA on CKD IV: follows with Dr. walls -stable *Anemia, chronic: *Chronic leukocytosis: *DM w/neuropathy: A1c 10.9, Poorly controlled *HTN: Poorly controlled *Chronic pain: *Depression: *Hypothyroidism: *Diarrhea: no BM since admit *Hyperlipidemia/Hypertriglyceridemia: Discharge diagnosis: Right hemispheric CVA DKA Secondary discharge diagnosis: Chronic kidney disease chronic anemia chronic leukocytosis diabetes neuropathy hypertension chronic pain depression hypothyroidism hyperlipidemia Time Spent with Patient Time attestation: Total time spent providing and/or coordinating discharge services: Time spent: Greater than 30 minutes EXAM Constitutional Vitals: Temp Pulse Resp BP Pulse Ox 97.5 F 90 16 176/106 100 11/22/20 08:01 11/22/20 10:11/22/20 09:00 11/22/20 10:11/22/20 10:01 Discharge Data Data Completed and Pending Labs on day of discharge: Labs from last 24 hours 11/22/20 11/21/20 05:05 09:30 Sodium 134 Potassium 3.7 Chloride 110 H Carbon Dioxide 14 L Anion Gap 10.0 BUN 36 H Creatinine 4.0 H GFR Calculation 13 Glucose 107 H Uric Acid 5.8 Calcium 7.7 L Phosphorus 4.8 H Magnesium 1.7 Total Bilirubin < 0.2 Direct Bilirubin < 0.2 GGT 19 AST 17 ALT 10 Alkaline Phosphatase 126 H Lactate Dehydrogenase 129 L Total Protein 5.7 L Albumin 2.5 L Globulin 3.2 Albumin/Globulin Ratio 0.8 L Triglycerides 429 H Urine Color Yellow Urine Appearance Turbid A Urine pH 5.0 Ur Specific [place] 1.006 Urine Protein 100 A Urine Glucose (UA) >=500 A Urine Ketones Negative Urine Occult Blood 0.20 Urine Nitrate Negative Urine Bilirubin Negative Urine Urobilinogen Negative Ur Leukocyte Esterase 250 A Urine RBC > 182 H Urine WBC > 182 H Ur Squamous Epith Cells 98 H Urine Bacteria Mod A Ur Culture Indicated? No Discharge Plan Patient/Caregiver Discharge Instructions Activity: increase activity as tolerated Diet: Renal/Consistent Carbs Prescriptions: New atorvastatin 40 mg Tablet 80 mg PO HS Qty: 30 RF: 0 clopidogrel 75 mg Tablet 75 mg PO DAILY Qty: 30 RF: 0 Continued lisinopril 10 mg tablet 10 mg PO QHS Qty: 30 RF: 11 gabapentin 600 mg tablet 1,200 mg PO QHS Qty: 60 RF: 2 (DME) lancets [OneTouch UltraSoft Lancets] [facility] See Dose Instructions each .ROUTE .MEDSUPPLY Qty: 50 RF: 0 (DME) blood sugar diagnostic [[employer] Verio test strips] strip See Dose Instructions order .ROUTE .MEDSUPPLY Qty: 20 RF: 0 (DME) blood-glucose meter [OneTouch Verio Flex meter] [facility] See Dose Instructions each .ROUTE .MEDSUPPLY Qty: 1 RF: 0 pen needle, diabetic 1 each MISCELLANE ACHS RF: 0 Levemir FlexTouch U-100 Insuln 100 unit/mL (3 mL) insulin pen 30 unit SUB-Q BID Qty: 15 RF: 11 insulin lispro 100 unit/mL solution 1 unit SUB-Q DAILY RF: 0 cyclobenzaprine 10 mg tablet 10 mg PO BID RF: 0 aspirin [Adult Aspirin Regimen] 81 mg tablet,delayed release (DR/EC) 81 mg PO QDAY RF: 0 amitriptyline 25 mg tablet 25 mg PO QHS Qty: 30 RF: 11 doxazosin 4 mg tablet 4 mg PO QHS Qty: 30 RF: 11 diltiazem HCl 240 mg capsule,extended release 24 hr 240 mg PO BID Qty: 60 RF: 0 Follow Up Plan Follow up with: Scot Salamanca ARNP [Primary Care Provider] - Rojelio Walls MD [Physician] - Patient Disposition: Xfer SNF Prognosis: Undetermined Rehab Potential: Fair I certify that the patient requires SNF services: Yes Overall status at discharge: patient is not back to baseline QUALITY VTE Deep Vein Thrombosis/Pulmonary Embolism Present on Admission: No
[2020-11-22] MEDS ORDERED: INSULIN LISPRO 1 UNIT/0.01 ML UNIT SQ SCH (11:30)
--- NOTE | 2020-11-22 15:53 | Nephrology Progress Note ---
SUBJECTIVE Subjective Patient information: Note initiated : 11/22/20 at 3:51 pm Service Date, if different from initiated Date: [] Patient: Jeanette Gonzalez 45 y/o F admitted on 11/20/20 for STROKE SYMPTOMS. Chief Complaint: [Stroke] Seen and examined, data reviewed C/o left hand swelling Motor function improving Repeat head CT (11/22/2020) with old right thalamic infarct, nothing acute Selected Entries 11/22/20 13:53 Temperature 36.1 C L Pulse Rate [Monitor Reading] 92 H Respiratory Rate 16 Blood Pressure [Right Arm] 135/82 Pulse Oximetry (%) 98 Laboratory Tests 11/22/20 05:05 Sodium 134 Potassium 3.7 Chloride 110 H Carbon Dioxide 14 L Anion Gap 10.0 BUN 36 H Creatinine 4.0 H GFR Calculation 13 Glucose 107 H Uric Acid 5.8 Calcium 7.7 L Phosphorus 4.8 H Magnesium 1.7 Total Bilirubin < 0.2 Direct Bilirubin < 0.2 GGT 19 AST 17 ALT 10 Alkaline Phosphatase 126 H Lactate Dehydrogenase 129 L Total Protein 5.7 L Albumin 2.5 L Globulin 3.2 Albumin/Globulin Ratio 0.8 L Triglycerides 429 H Monitor BP with goal 130/80 and glucose control Start bicitra for acidosis - avoid NaHCO3 due to sodium loading which she does not need Constitutional Vitals: Vital Signs Temp Pulse Resp BP Pulse Ox 36.1 C L 92 H 16 135/82 98 11/22/20 13:53 11/22/20 13:53 11/22/20 13:53 11/22/20 13:53 11/22/20 13:53 Period Temp Pulse Resp BP Sys/Santiago Pulse Ox Last 24 Hr 36.1 C-37.1 C 83-101 8-20 135-213/82-115 91-100 Intake and Output 11/22/20 11/22/20 11/22/20 05:59 13:59 21:59 Intake Total 1606 Output Total 1100 1999 Balance 506 -1999 Intake & Output: Intake & Output 11/22/20 11/22/20 11/22/20 05:59 13:59 21:59 Intake Total 1606 Output Total 1100 1999 Balance 506 -2000 Intake: IV 956 Sodium Chloride 0.45% 1,000 ml 956 @ 84 mls/hr IV .[id number] [facility] Rx# :[id number] Oral 650 Output: Void Amount 1100 2000 Other: Meal Breakfast Percent of Meal Consumed 100% Feeding Ability Independent Urine Appearance Cloudy Clear Urine Color Pale Pale Straw Straw Urine Odor Normal # Bowel Movements 0 A/P Assessment and plan (1) CKD stage 5 due to type 2 diabetes mellitus: Status: Acute Comment: Will need left AVF and 3 months later initiate [employer]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 Survival on HD is 25% [id number] per year and in the past compliance has been an issue. (2) Acute cerebrovascular accident (CVA): Status: Acute Comment: Suspect right thalamic CVA ASA, plavix, Restart antihypertensives tomorrow (3) Phantom pain after amputation of lower extremity: Status: Acute (4) Type 2 diabetes mellitus with diabetic nephropathy, with long-term current use of insulin: Status: Acute Comment: She is on the fast track to ESRD Trend urinary protein excretion rate and GFR Maximize nondihydropyridine calcium channel blockers and RAASI therapy slow the progression of diabetic nephropathy. Narrative A/P Narrative: CKD 4/5 due to diabetes and neglect of care over the years both in terms of DM and HTN management. Too late to stop the inevitable march to ESRD If she is sushma, ESRD can be delayed till fall or winter of 2020. BP control with renal protective Rx icluding DILTIAZEM and maximally tolerated dose of LOSARTAN DM control with BID levemir and TID mealtime lispro PLUS ss lispro correction factor Vein mapping odered Blood pressure seems much better on diltiazem 240, losartan 10, doxazosin 4 Titrate doxazosin as necessary to maintain blood pressure 130/80 Blood glucose easily controlled with levimir 30 units BID and very little humalog The last two items mentioned speaks to her noncompliant and basically manipulative behavior. Vein mapping and outpatient referal to Dr Melgar for AVF. Time Spent With Patient Time: Total time spent is greater than 50% in coordination of care (as documented) at patient's floor/unit and/or counseling patient:
[2020-11-22] MEDS: CITRIC ACID/SODIUM CITRATE 15 ML ORAL.SOL PO SCH (20:11)
[2020-11-22] MEDS: AMITRIPTYLINE 25 MG TABLET PO SCH (20:12)
[2020-11-22] MEDS: GABAPENTIN 300 MG CAPSULE PO SCH (20:12)
[2020-11-22] MEDS: ATORVASTATIN 40 MG TABLET PO SCH (20:12)
[2020-11-22] MEDS ORDERED: GABAPENTIN 400 MG CAPSULE PO SCH (21:00)
[2020-11-22] MEDS ORDERED: DOXAZOSIN 4 MG TABLET PO SCH ×2 (21:00)
[2020-11-22] MEDS ORDERED: LISINOPRIL 10 MG TABLET PO SCH ×2 (21:00)
[2020-11-23] MEDS ORDERED: 0.9 % SODIUM CHLORIDE 250 ML IV ONE (01:00)
[2020-11-23] MEDS ORDERED: 0.9 % SODIUM CHLORIDE 1,000 ML IV ONE (01:40)
[2020-11-23] MEDS ORDERED: DEXTROSE 50% 50 ML VIAL IV ONE ×2 (01:43→01:49)
[2020-11-23] MEDS: 0.9 % SODIUM CHLORIDE 10 ML SYRINGE IV SCH ×3 (05:45→21:05)
[2020-11-23] MEDS: ACETAMINOPHEN 325 MG TABLET PO PRN (05:58)
[2020-11-23 06:52] LABS: Blood Urea Nitrogen 37 mg/dL (6-20); Calcium 7.3 mg/dL (8.6-10.4); Carbon Dioxide 12 mmol/L (22-30); Chloride 107 mmol/L (96-108); Glomerular Filtration Rate 14; Glucose 94 mg/dL (70-105)
--- NOTE | 2020-11-23 07:57 | Internal Med Progress Note ---
SUBJECTIVE Subjective Patient information: Note initiated : 11/23/20 at 7:46 am Service Date, if different from initiated Date: [] Patient: Jeanette Gonzalez a 45 y/o F admitted on 11/20/20 for STROKE SYMPTOMS. Chief Complaint: [] Interval history: History of present illness: Ms. Gonzalez is a 45 year old F Presents to the ED with left leg weakness numbness. Patient states that she has had diarrhea for the past 3 days nonbloody 2 episodes a day. Other than that she had no other illnesses. She felt relatively well going to bed last night and then woke up with some left-sided weakness at 4 she thought she had just slept on her side funny and then rolled to the right side and then when she woke up later in the morning she still had a left-sided weakness and called her mom and she took her aspirin. And then she developed left facial numbness and then they called the clinic and her mom brought her into the ED. Code stroke was called. CT noncontrast brain was unremarkable for acute pathology. He was unable to undergo CTA because of her renal function and unable to undergo MRI as she needs deep sedation for this. MRI under sedation was discussed with anesthesiologist who relayed that we do not have the monitoring equipment to perform MRI under sedation. This was discussed with stroke neurologist who felt that she did not warrant transfer and further imaging and that this could be treated medically. Says she did have a stroke when she was in [place] last year that left her with mild left-sided numbness but it is much more severe at this time. Weakness is also new as well. Blood pressure is significant elevated although it has been significantly elevated each of the previous time she is come to the hospital. Her glucose is significantly elevated in the 500s. Anion gap metabolic acidosis. EKG is normal sinus rhythm. This is also discussed with her investor given her worsening renal function. 11/21 Anion gap closed. Will transition to subcu insulin. Left side weakness mildly improved. No diarrhea since admission. 11/22 Patient slept well. Patient is able to move her arm and leg more. Occasional headaches and chronic pain but otherwise no new complaints. 11/23 Patient became mildly hypotensive last night. Complains of numbness in her face. IV fluid bolus and hold blood pressure medications. Blood pressure and blood glucose dropped quite a bit after starting home regimen which makes me question whether not she is consistent with her medications at home. some recurrent symptoms of her stroke this morning with facial numbness and some slurring but her arm and leg are at least as strong as yesterday, maybe showing even a little bit more improvement Review of Systems: Headache. Denies fever/chills/nausea/vomiting/chest pain/cough/dyspnea/diarrhea. Otherwise see above. Constitutional Vitals: Vital Signs Temp Pulse Resp BP Pulse Ox 97.8 F 71 6 L 91/57 100 11/23/20 04:00 11/23/20 04:00 11/23/20 04:00 11/23/20 04:00 11/23/20 04:00 Period Temp Pulse Resp BP Sys/Santiago Pulse Ox Last 24 Hr 96.9 F-98.7 F 71-95 6-20 82-194/42-110 97-100 Intake and Output 11/22/20 11/23/20 11/23/20 21:59 05:59 13:59 Intake Total 480 1950 0 Balance 480 1950 0 Weight 68.152 kg Intake & Output: Intake & Output 11/22/20 11/23/20 11/23/20 21:59 05:59 13:59 Intake Total 480 1950 0 Balance 480 1950 0 Weight 68.152 kg Intake: IV 0 1250 Sodium Chloride 0.9% 1,000 ml @ 1000 Wide Open IV BOLUS ONE Rx#: [id number] Sodium Chloride 0.9% 250 ml @ 250 Wide Open IV BOLUS ONE Rx#: [id number] HumuLIN R 50 UNIT In Sodium 0 Chloride 0.9% 99.5 ml @ 2 UNIT/ HR 4 mls/hr IV DUR CHRISTINA Rx#: [id number] Oral 480 700 0 Other: Meal Dinner Percent of Meal Consumed 100% Feeding Ability Independent Exam: General: Alert, Awake, No acute Distress Eyes/N/T: EOMI, Head/Neck: neck supple, CV: RRR, No murmurs, Pulm: Clear b/l, no wheezing/rhonchi/rales Abd: soft, +BS x4 Ext: no clubbing/cyanosis/edema, b/l BKA Neuro: Alert, left arm/leg numbness & left hemiparesis - improving, slurring Skin: warm/dry OBJ DATA Labs CBC & Chem 7: 11/21/20 05:35 11/23/20 05:16 Labs: Abnormal Lab Results 11/23/20 11/22/20 11/21/20 05:16 05:05 09:30 WBC RBC Hgb Hct RDW Absolute Neutrophils ABG Methemoglobin VBG Base Excess Carboxyhemoglobin Total Hemoglobin Sodium 129 L Chloride 110 H Carbon Dioxide 12 L 14 L Anion Gap BUN 37 H 36 H Creatinine 3.8 H 4.0 H POC Creatinine Glucose 107 H Calcium 7.3 L 7.7 L Phosphorus 4.8 H Alkaline Phosphatase 126 H Lactate Dehydrogenase 129 L Total Protein 5.7 L Albumin 2.5 L Albumin/Globulin Ratio 0.8 L Triglycerides 429 H Cholesterol LDL Cholesterol, Calc Non-HDL Cholesterol HDL Cholesterol Urine Appearance Turbid A Urine Protein 100 A Urine Glucose (UA) >=500 A Ur Leukocyte Esterase 250 A Urine RBC > 182 H Urine WBC > 182 H Ur Squamous Epith Cells 98 H Urine Bacteria Mod A 11/21/20 11/21/20 11/21/20 05:35 05:35 05:35 WBC 13.5 H RBC 2.99 L Hgb 8.3 L Hct 26.2 L RDW 14.6 H Absolute Neutrophils ABG Methemoglobin 0.3 L VBG Base Excess -14 L Carboxyhemoglobin 5.8 H Total Hemoglobin 8.7 L Sodium Chloride 110 H Carbon Dioxide 13 L Anion Gap BUN 38 H Creatinine 4.2 H POC Creatinine Glucose 207 H Calcium 7.5 L Phosphorus 4.6 H Alkaline Phosphatase 128 H Lactate Dehydrogenase Total Protein 5.8 L Albumin 2.4 L Albumin/Globulin Ratio 0.7 L Triglycerides 398 H Cholesterol LDL Cholesterol, Calc Non-HDL Cholesterol HDL Cholesterol Urine Appearance Urine Protein Urine Glucose (UA) Ur Leukocyte Esterase Urine RBC Urine WBC Ur Squamous Epith Cells Urine Bacteria 11/21/20 11/20/20 11/20/20 00:58 13:10 13:10 WBC RBC Hgb Hct RDW Absolute Neutrophils ABG Methemoglobin VBG Base Excess Carboxyhemoglobin Total Hemoglobin Sodium 129 L Chloride Carbon Dioxide 11 L Anion Gap 19.0 H BUN 43 H Creatinine 4.2 H POC Creatinine 4.8 H Glucose 529 H* Calcium 7.8 L Phosphorus 4.7 H Alkaline Phosphatase 179 H Lactate Dehydrogenase Total Protein Albumin 3.0 L Albumin/Globulin Ratio 0.9 L Triglycerides 441 H Cholesterol 219 H LDL Cholesterol, Calc H Non-HDL Cholesterol 188 H HDL Cholesterol 31 L Urine Appearance Turbid A Urine Protein >=500 A Urine Glucose (UA) >=500 A Ur Leukocyte Esterase 500 A Urine RBC > 182 H Urine WBC > 182 H Ur Squamous Epith Cells 35 H Urine Bacteria Mod A 11/20/20 13:10 WBC 14.9 H RBC 3.29 L Hgb 9.2 L Hct 28.4 L RDW Absolute Neutrophils 11.46 H ABG Methemoglobin VBG Base Excess Carboxyhemoglobin Total Hemoglobin Sodium Chloride Carbon Dioxide Anion Gap BUN Creatinine POC Creatinine Glucose Calcium Phosphorus Alkaline Phosphatase Lactate Dehydrogenase Total Protein Albumin Albumin/Globulin Ratio Triglycerides Cholesterol LDL Cholesterol, Calc Non-HDL Cholesterol HDL Cholesterol Urine Appearance Urine Protein Urine Glucose (UA) Ur Leukocyte Esterase Urine RBC Urine WBC Ur Squamous Epith Cells Urine Bacteria Meds: Medications Acetaminophen (Tylenol) 650 mg PO Q4-6HP PRN PRN Reason: PAIN/FEVER > 101 Last Admin: 11/23/20 05:58 Dose: 650 mg Documented by: Hydrocodone Bitart/Acetaminophen ([place] 5/325mg) 1 tab PO Q6HP PRN; Protocol PRN Reason: Per Pain Protocol Last Admin: 11/22/20 23:50 Dose: 1 tab Documented by: Albuterol/Ipratropium (Duoneb) 3 ml NEB Q4HRT PRN PRN Reason: sob Amitriptyline HCl (Elavil) 25 mg PO QHS [facility] Last Admin: 11/22/20 20:12 Dose: 25 mg Documented by: Aspirin (Aspirin) 81 mg CHEWED DAILY [facility] Atorvastatin Calcium (Lipitor) 80 mg PO HS [facility] Last Admin: 11/22/20 20:12 Dose: 80 mg Documented by: Citric Acid/Sodium Citrate (Bicitra) 15 ml PO TIDCC [facility] Last Admin: 11/22/20 20:11 Dose: 15 ml Documented by: Clopidogrel Bisulfate (Plavix) 75 mg PO DAILY [facility] Cyclobenzaprine HCl (Flexeril) 10 mg PO BID [facility] Last Admin: 11/22/20 20:12 Dose: 10 mg Documented by: Diagnostic Test (Pha) (Accu-Chek) 1 each FS ACHS [facility] Last Admin: 11/23/20 01:42 Dose: 1 each Documented by: Diltiazem HCl (Cardizem Cd) 240 mg PO BID [facility] Last Admin: 11/22/20 20:13 Dose: 240 mg Documented by: Doxazosin Mesylate (Cardura) 4 mg PO QHS [facility] Last Admin: 11/22/20 20:12 Dose: 4 mg Documented by: Gabapentin (Neurontin) 600 mg PO Q12 [facility] Last Admin: 11/22/20 20:12 Dose: 600 mg Documented by: Heparin Sodium (Porcine) (Heparin) 5,000 unit SQ Q12 [facility] Last Admin: 11/22/20 20:11 Dose: 5,000 unit Documented by: Hydralazine HCl (Apresoline) 0 mg IV Q2HP PRN PRN Reason: Hypertension Insulin Glargine (Lantus) 30 unit SQ BID [facility] Last Admin: 11/22/20 21:39 Dose: 30 unit Documented by: Insulin Human Lispro (Humalog) 0 unit SQ ACHS [facility]; Protocol Last Admin: 11/22/20 20:26 Dose: Not Given Documented by: Labetalol HCl (Trandate) 0 mg IV Q2HP PRN PRN Reason: Hypertension Lisinopril (Zestril) 10 mg PO QHS [facility] Last Admin: 11/22/20 21:40 Dose: 10 mg Documented by: Ondansetron HCl (Zofran) 4 mg IV Q4-6HP PRN PRN Reason: Nausea And Vomiting Sodium Chloride (Saline Flush) 10 ml IV Q8 [facility] Last Admin: 11/23/20 05:45 Dose: 10 ml Documented by: ABG Interpretation ABG results: 11/21/20 05:35 ABG Methemoglobin 0.3 L VBG pH 7.25 VBG pCO2 28.9 VBG pO2 147.4 VBG HCO3 12.3 VBG Total CO2 13.2 VBG O2 Saturation 92.6 VBG Base Excess -14 L A/P Narrative A/P Narrative: A: *CVA with left side numbess/hemiplegia, facial droop: slowly improving with waxing/waning - some slurring this morning -h/o CVA w/residual left side numbness, has been on ASA, but do not see statin on home list -unable to perform MRI under sedation d/t lack of monitoring equipment -carotids patent, echo pending *DKA: A1c 10.9 -blood glucose low after starting home meds, Question compliance with meds at home *hypotension, mild: bp low also after starting home meds, Question compliance with meds at home - *AG Met Acidosis: 2/2 above and renal dz *Pseudohyponatremia: resolved *HILDA on CKD IV/V: follows with Dr. varghese -mild improvement *Anemia, chronic: *Chronic leukocytosis: *DM w/neuropathy: A1c 10.9, Poorly controlled *HTN: Poorly controlled *Chronic pain: *Depression: *Hypothyroidism: *Diarrhea: no BM since admit *Hyperlipidemia/Hypertriglyceridemia: *Long-term prognosis poor: P: -DAPT/STatin -hold home BP meds, restart gradually as BP allows -case discussed with stroke neurologist in ED -echo pending -Nephrology following -cont detemir and SSI -urine cx, rocephin until cx returned -monitor electrolytes -PT/OT -ppx: Heparin Full code Time Spent With Patient Time: Total time spent is greater than 50% in coordination of care (as documented) at patient's floor/unit and/or counseling patient: QUALITY Stroke Onset of Symptoms Date: 11/20/20 Onset of Symptoms Time: 04:00 Symptom Onset Unknown: No VTE Deep Vein Thrombosis/Pulmonary Embolism Present on Admission: No
[2020-11-23] MEDS ORDERED: traMADol 50 MG TABLET PO ONE (08:50)
--- NOTE | 2020-11-23 08:53 | Ultrasound Report ---
INDICATION: Planning for AVF soon TECHNIQUE: Routine grayscale and color flow Doppler spectral imaging COMPARISON: None. FINDINGS: Arterial and venous duplex examination of both upper extremities. There is no calcified atherosclerotic plaque. No detectable stenosis or occlusion. Venous system is normal. Vascular mapping study was performed on the worksheet is included. IMPRESSION: Vascular mapping study for preoperative planning Interpreted and Authenticated by: Jeremy Figueredo 11/23/20
[2020-11-23] MEDS ORDERED: cefTRIAXone 1 GM VIAL IV SCH (09:00)
[2020-11-23] MEDS: INSULIN LISPRO 1 UNIT/0.01 ML UNIT SQ SCH ×4 (09:23→21:13)
[2020-11-23] MEDS: HEPARIN 5,000 UNIT/ML VIAL SQ SCH ×2 (09:53→21:05)
[2020-11-23] MEDS: INSULIN GLARGINE, HUMAN 1 UNIT/0.01 ML SQ SCH ×2 (09:53→21:28)
[2020-11-23] MEDS: CITRIC ACID/SODIUM CITRATE 15 ML ORAL.SOL PO SCH ×3 (09:53→16:48)
[2020-11-23] MEDS: CYCLOBENZAPRINE 10 MG TABLET PO SCH ×2 (09:54→21:05)
[2020-11-23] MEDS: GABAPENTIN 300 MG CAPSULE PO SCH ×2 (09:54→21:04)
[2020-11-23] MEDS: ASPIRIN 81 MG TAB.CHEW CHEWED SCH (09:55)
[2020-11-23] MEDS: CLOPIDOGREL 75 MG TABLET PO SCH (09:55)
[2020-11-23] MEDS: 0.9 % SODIUM CHLORIDE 500 ML IV SCH ×2 (09:56→15:07)
--- NOTE | 2020-11-23 13:38 | Nephrology Progress Note ---
SUBJECTIVE Subjective Patient information: Note initiated : 11/23/20 at 1:25 pm Service Date, if different from initiated Date: [] Patient: Jeanette Gonzalez 45 y/o F admitted on 11/20/20 for STROKE SYMPTOMS. Chief Complaint: [Stroke Sx left face and arm] BP dropped into 90's last PM and now c/o diplopia and dyrsarthria as well as her facial numbness and left arm motor weaness abd numbness. Agree with Hospital service that now with control of diet and and medication administration she is too vigorously controlled BP and blood sigar is easily controlled where seldom below 500 in the chart as an outpatient. She is difficult and frustrating to try to manage. In any case, the has been cast and ESRD will join the list of Cerebral vascular and peripheral vascular complications of poorly controlled DM and HTN. Fingerstick BS Dinamap BP Constitutional Vitals: Vital Signs Temp Pulse Resp BP Pulse Ox 36.1 C 72 20 100/65 98 11/23/20 12:00 11/23/20 12:00 11/23/20 12:00 11/23/20 13:00 11/23/20 12:00 Period Temp Pulse Resp BP Sys/Santiago Pulse Ox Last 24 Hr 36.1 C-37.1 C 71-95 6-20 82-161/42-94 97-100 Intake and Output 11/22/20 11/23/20 11/23/20 21:59 05:59 13:59 Intake Total 480 1950 300 Balance 480 1950 300 Weight 68.152 kg Intake & Output: Intake & Output 11/22/20 11/23/20 11/23/20 21:59 05:59 13:59 Intake Total 480 1950 300 Balance 480 1950 300 Weight 68.152 kg Intake: IV 0 1250 Sodium Chloride 0.9% 1,000 ml @ 1000 Wide Open IV BOLUS ONE Rx#: [id number] Sodium Chloride 0.9% 250 ml @ 250 Wide Open IV BOLUS ONE Rx#: [id number] HumuLIN R 50 UNIT In Sodium 0 Chloride 0.9% 99.5 ml @ 2 UNIT/ HR 4 mls/hr IV DUR CHRISTINA Rx#: [id number] Oral 480 700 300 Other: Meal Dinner Breakfast Percent of Meal Consumed 100% 100% Feeding Ability Independent Assist with Tray Set Up General appearance: mild distress Exam: Anxious concerning her neurologic status Head Head exam: Present normal inspection Eye Eye exam: Present EOMI and PERRL; Absent nystagmus ENT ENT exam: Present mucous membranes moist Neck Neck exam: Present full ROM; Absent meningismus Respiratory Respiratory exam: Present normal respiratory exam and CTAB Cardiovascular Cardiovascular exam: Present normal rate and rhythm, +S1 and +S2; Absent gallop and JVD GI/Abdominal GI/Abdominal exam: Present normal bowel sounds and soft Extremities Exam Additional comments: Bilateral BKA Neurological Exam Neurological exam: Present alert and motor sensory deficit (Left arm weakness and numbness); Absent CN II-XII intact (Left nasolabial fold diminished, numbness left face, diplopia) Psychiatric Psychiatric exam: Present anxious Skin Skin exam: Present dry A/P Assessment and plan (1) CKD stage 5 due to type 2 diabetes mellitus: Status: Acute Comment: Will need left AVF and 3 months later initiate 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 Survival on HD is 25% [id number] per year and in the past compliance has been an issue. (2) Acute cerebrovascular accident (CVA): Status: Acute Comment: Suspect right thalamic CVA ASA, plavix, Restarted antihypertensives and now held again due to drop in BP (3) Type 2 diabetes mellitus with diabetic nephropathy, with long-term current use of insulin: Status: Acute Comment: She is on the fast track to ESRD Trend urinary protein excretion rate and GFR Maximize nondihydropyridine calcium channel blockers and RAASI therapy slow the progression of diabetic nephropathy. Narrative A/P Narrative: * Blood pressure Rx on hold * Blood sugars well controlled with less than her home insulin regiment argues for noncompliance or excessive carbohydrate intake or both * Stuttering CVA probably related to labile blood pressure * Labile blood pressure due to the unpredictable nature of the patient insofar as home doses of medications once in the controlled hospital setting are probably excessive * Herein is the problem... Easily controlled diabetes and hypertension in the hospital but when left to her own devices blood sugars are in the 500 range, blood pressure is around 180, and the result is numerous complications. * Sadly is too late to prevent dialysis... Even worse is the fact that she will have a high morbidity, hospitalization, until she passes away with an estimated survival of 25 %/year. * Venous mapping completed * Referral to Dr. Melgar the time of discharge for placement of an AV fistula Time Spent With Patient Time: Total time spent is greater than 50% in coordination of care (as documented) at patient's floor/unit and/or counseling patient:
[2020-11-23] MEDS: HYDROcodone/APAP 5/325MG TABLET PO PRN (16:49)
[2020-11-23] MEDS: ATORVASTATIN 40 MG TABLET PO SCH (21:04)
[2020-11-23] MEDS: AMITRIPTYLINE 25 MG TABLET PO SCH (21:05)
[2020-11-24] MEDS: 0.9 % SODIUM CHLORIDE 10 ML SYRINGE IV SCH ×3 (04:43→20:35)
--- NOTE | 2020-11-24 07:36 | Internal Med Progress Note ---
SUBJECTIVE Subjective Patient information: Note initiated : 11/24/20 at 7:34 am Service Date, if different from initiated Date: [] Patient: Jeanette Gonzalez a 45 y/o F admitted on 11/20/20 for STROKE SYMPTOMS. Chief Complaint: [] Interval history: History of present illness: Ms. Gonzalez is a 45 year old F Presents to the ED with left leg weakness numbness. Patient states that she has had diarrhea for the past 3 days nonbloody 2 episodes a day. Other than that she had no other illnesses. She felt relatively well going to bed last night and then woke up with some left-sided weakness at 4 she thought she had just slept on her side funny and then rolled to the right side and then when she woke up later in the morning she still had a left-sided weakness and called her mom and she took her aspirin. And then she developed left facial numbness and then they called the clinic and her mom brought her into the ED. Code stroke was called. CT noncontrast brain was unremarkable for acute pathology. He was unable to undergo CTA because of her renal function and unable to undergo MRI as she needs deep sedation for this. MRI under sedation was discussed with anesthesiologist who relayed that we do not have the monitoring equipment to perform MRI under sedation. This was discussed with stroke neurologist who felt that she did not warrant transfer and further imaging and that this could be treated medically. Says she did have a stroke when she was in [place] last year that left her with mild left-sided numbness but it is much more severe at this time. Weakness is also new as well. Blood pressure is significant elevated although it has been significantly elevated each of the previous time she is come to the hospital. Her glucose is significantly elevated in the 500s. Anion gap metabolic acidosis. EKG is normal sinus rhythm. This is also discussed with her sleep technologist given her worsening renal function. 11/21 Anion gap closed. Will transition to subcu insulin. Left side weakness mildly improved. No diarrhea since admission. 11/22 Patient slept well. Patient is able to move her arm and leg more. Occasional headaches and chronic pain but otherwise no new complaints. 11/23 Patient became mildly hypotensive last night. Complains of numbness in her face. IV fluid bolus and hold blood pressure medications. Blood pressure and blood glucose dropped quite a bit after starting home regimen which makes me question whether not she is consistent with her medications at home. some recurrent symptoms of her stroke this morning with facial numbness and some slurring but her arm and leg are at least as strong as yesterday, maybe showing even a little bit more improvement 2/2 Patient has urinary retention although she states she only urinates several times a day and has a large volume void. Renal function worsening today will obtain a renal ultrasound to make sure there is not any hydronephrosis. Blood pressure 110's systolic without any blood pressure medication. Strength improving but numbness still present. Review of Systems: Headache. Denies fever/chills/nausea/vomiting/chest pain/cough/dyspnea/diarrhea. Otherwise see above. Constitutional Vitals: Vital Signs Temp Pulse Resp BP Pulse Ox 98.2 F 89 14 112/72 98 11/24/20 07:32 11/24/20 07:32 11/24/20 07:32 11/24/20 07:32 11/24/20 07:32 Period Temp Pulse Resp BP Sys/Santiago Pulse Ox Last 24 Hr 97.0 F-98.3 F 72-92 12-20 88-137/60-82 96-99 Intake and Output 11/23/20 11/24/20 11/24/20 21:59 05:59 13:59 Intake Total 1460 800 Output Total 910 200 Balance 550 600 Weight 70.67 kg Intake & Output: Intake & Output 11/23/20 11/24/20 11/24/20 21:59 05:59 13:59 Intake Total 1460 800 Output Total 910 200 Balance 550 600 Weight 70.67 kg Intake: IV 500 Sodium Chloride 0.9% 500 ml @ 500 100 mls/hr IV .Q5H [facility] Rx#: [id number] Oral 960 800 Output: Urine Catheter Amount 850 Straight 850 Void Amount 60 200 Other: Meal Dinner Percent of Meal Consumed 100% Feeding Ability Independent Urine Appearance Cloudy Cloudy Sediment Sediment Straight Clear Urine Color Green Pale Straight Bright Yellow Urine Odor Foul Strong Exam: General: Alert, Awake, No acute Distress Eyes/N/T: EOMI, Head/Neck: neck supple, CV: RRR, No murmurs, Pulm: Clear b/l, no wheezing/rhonchi/rales Abd: soft, +BS x4 Ext: no clubbing/cyanosis/edema, b/l BKA Neuro: Alert, left arm/leg numbness continues, left hemiparesis improving, no slurring Skin: warm/dry OBJ DATA Labs CBC & Chem 7: 11/21/20 05:35 11/24/20 05:26 Labs: Abnormal Lab Results 11/23/20 11/22/20 11/21/20 05:16 05:05 09:30 Sodium 129 L Chloride 110 H Carbon Dioxide 12 L 14 L BUN 37 H 36 H Creatinine 3.8 H 4.0 H Glucose 107 H Calcium 7.3 L 7.7 L Phosphorus 4.8 H Alkaline Phosphatase 126 H Lactate Dehydrogenase 129 L Total Protein 5.7 L Albumin 2.5 L Albumin/Globulin Ratio 0.8 L Triglycerides 429 H Urine Appearance Turbid A Urine Protein 100 A Urine Glucose (UA) >=500 A Ur Leukocyte Esterase 250 A Urine RBC > 182 H Urine WBC > 182 H Ur Squamous Epith Cells 98 H Urine Bacteria Mod A Meds: Medications Acetaminophen (Tylenol) 650 mg PO Q4-6HP PRN PRN Reason: PAIN/FEVER > 101 Last Admin: 11/23/20 05:58 Dose: 650 mg Documented by: Hydrocodone Bitart/Acetaminophen ([place] 5/325mg) 1 tab PO Q6HP PRN; Protocol PRN Reason: Per Pain Protocol Last Admin: 11/23/20 16:49 Dose: 1 tab Documented by: Albuterol/Ipratropium (Duoneb) 3 ml NEB Q4HRT PRN PRN Reason: sob Amitriptyline HCl (Elavil) 25 mg PO QHS [facility] Last Admin: 11/23/20 21:05 Dose: 25 mg Documented by: Aspirin (Aspirin) 81 mg CHEWED DAILY [facility] Last Admin: 11/23/20 09:55 Dose: 81 mg Documented by: Atorvastatin Calcium (Lipitor) 80 mg PO HS [facility] Last Admin: 11/23/20 21:04 Dose: 80 mg Documented by: Ceftriaxone Sodium (Rocephin) 1 gm IV Q24H [facility]; Protocol Last Admin: 11/23/20 09:55 Dose: 1 gm Documented by: Citric Acid/Sodium Citrate (Bicitra) 15 ml PO TIDCC [facility] Last Admin: 11/23/20 16:48 Dose: 15 ml Documented by: Clopidogrel Bisulfate (Plavix) 75 mg PO DAILY [facility] Last Admin: 11/23/20 09:55 Dose: 75 mg Documented by: Cyclobenzaprine HCl (Flexeril) 10 mg PO BID [facility] Last Admin: 11/23/20 21:05 Dose: 10 mg Documented by: Diagnostic Test (Pha) (Accu-Chek) 1 each FS [facility] Last Admin: 11/23/20 21:13 Dose: 1 each Documented by: Gabapentin (Neurontin) 600 mg PO Q12 [facility] Last Admin: 11/23/20 21:04 Dose: 600 mg Documented by: Heparin Sodium (Porcine) (Heparin) 5,000 unit SQ Q12 [facility] Last Admin: 11/23/20 21:05 Dose: 5,000 unit Documented by: Hydralazine HCl (Apresoline) 0 mg IV Q2HP PRN PRN Reason: Hypertension Insulin Glargine (Lantus) 20 unit SQ BID [facility] Last Admin: 11/23/20 21:28 Dose: 20 units Documented by: Insulin Human Lispro (Humalog) 0 unit SQ [facility]; Protocol Last Admin: 11/23/20 21:13 Dose: Not Given Documented by: Labetalol HCl (Trandate) 0 mg IV Q2HP PRN PRN Reason: Hypertension Ondansetron HCl (Zofran) 4 mg IV Q4-6HP PRN PRN Reason: Nausea And Vomiting Sodium Chloride (Saline Flush) 10 ml IV Q8 [facility] Last Admin: 11/24/20 04:43 Dose: 10 ml Documented by: ABG Interpretation ABG results: 11/21/20 05:35 ABG Methemoglobin 0.3 L VBG pH 7.25 VBG pCO2 28.9 VBG pO2 147.4 VBG HCO3 12.3 VBG Total CO2 13.2 VBG O2 Saturation 92.6 VBG Base Excess -14 L A/P Narrative A/P Narrative: A: *CVA with left side numbess/hemiplegia, facial droop: strength/facial droop improving -h/o CVA w/residual left side numbness, has been on ASA, but do not see statin on home list -unable to perform MRI under sedation d/t lack of monitoring equipment -carotids patent, echo pending *DKA: A1c 10.9 -blood glucose low after starting home meds, Question compliance with meds at home *hypotension, mild: bp low also after starting home meds, Question compliance with meds at home - *AG Met Acidosis: 2/2 above and renal dz *Pseudohyponatremia: resolved *HILDA on CKD IV/V: follows with Dr. varghese -mild improvement, then worsened again - ?retention *Urinary retention *Anemia, chronic: *Chronic leukocytosis: *DM w/neuropathy: A1c 10.9, Poorly controlled *HTN: Poorly controlled, *Chronic pain: *Depression: *Hypothyroidism: *Diarrhea: no BM since admit *Hyperlipidemia/Hypertriglyceridemia: *Long-term prognosis poor: P: -renal u/s -prn straight caths, may need gutierrez -monitoring BP & blood glucose to determine BP & diabetic regimen while in a controlled environment -DAPT/STatin -hold home BP meds, restart gradually as BP allows -case discussed with stroke neurologist in ED -echo still pending -Nephrology following -cont detemir (decreased home do to 20 bid) and SSI -monitor electrolytes -PT/OT -ppx: Heparin Full code Time Spent With Patient Time: Total time spent is greater than 50% in coordination of care (as documented) at patient's floor/unit and/or counseling patient: QUALITY Stroke Onset of Symptoms Date: 11/20/20 Onset of Symptoms Time: 04:00 Symptom Onset Unknown: No VTE Deep Vein Thrombosis/Pulmonary Embolism Present on Admission: No
[2020-11-24 07:38] LABS: Blood Urea Nitrogen 47 mg/dL (6-20); Calcium 7.6 mg/dL (8.6-10.4); Carbon Dioxide 13 mmol/L (22-30); Chloride 104 mmol/L (96-108); Glomerular Filtration Rate 11; Glucose 161 mg/dL (70-105)
[2020-11-24] MEDS: CITRIC ACID/SODIUM CITRATE 15 ML ORAL.SOL PO SCH ×3 (08:19→17:19)
[2020-11-24] MEDS: HYDROcodone/APAP 5/325MG TABLET PO PRN ×3 (08:20→23:14)
--- NOTE | 2020-11-24 08:48 | Ultrasound Report ---
INDICATION: Renal failure TECHNIQUE: Grayscale and color flow Doppler spectral imaging. COMPARISON: Previous examination dated 08/26/2020 FINDINGS: Limited evaluation. This patient was in a great deal of pain and was unable to allow for a complete study. Right kidney: Right kidney .4 x 4.9 x 4.4 cm.. There is no hydronephrosis. No solid right renal mass. Renal cortex is normal. No detectable calculi. Left kidney: Left kidney [id number] x 5.1 x 4.3 cm. Left renal pelvis. Prominent but there is no true hydronephrosis. No solid left renal mass. Renal cortex is normal. No detectable calculi. Bladder: Prevoid bladder [id number] mL. Patient did not void. No bladder calculi. No detectable mass. Bilateral ureteral jets visualized. IMPRESSION: 1. Mildly prominent left renal pelvis. Appearance is unchanged. No true hydronephrosis 2. Distended urinary bladder Interpreted and Authenticated by: Jeremy Figueredo 11/24/20
[2020-11-24] MEDS ORDERED: SODIUM BICARBONATE 650 MG TABLET PO SCH (09:00)
[2020-11-24] MEDS ORDERED: SODIUM CHLORIDE 1 GM TABLET PO SCH (09:00)
[2020-11-24] MEDS: INSULIN LISPRO 1 UNIT/0.01 ML UNIT SQ SCH ×4 (09:40→20:33)
[2020-11-24] MEDS: HEPARIN 5,000 UNIT/ML VIAL SQ SCH ×2 (09:41→20:33)
[2020-11-24] MEDS: ASPIRIN 81 MG TAB.CHEW CHEWED SCH (09:41)
[2020-11-24] MEDS: GABAPENTIN 300 MG CAPSULE PO SCH ×2 (09:42→20:34)
[2020-11-24] MEDS: INSULIN GLARGINE, HUMAN 1 UNIT/0.01 ML SQ SCH ×2 (09:42→20:32)
[2020-11-24] MEDS: CYCLOBENZAPRINE 10 MG TABLET PO SCH ×2 (09:42→20:35)
[2020-11-24] MEDS: CLOPIDOGREL 75 MG TABLET PO SCH (09:42)
--- NOTE | 2020-11-24 14:10 | Nephrology Progress Note ---
SUBJECTIVE Subjective Patient information: Note initiated : 11/24/20 at 2:07 pm Service Date, if different from initiated Date: [] Patient: Jeanette Gonzalez 45 y/o F admitted on 11/20/20 for STROKE SYMPTOMS. Chief Complaint: [stroke] 45-year-old woman with left facial numbness and weakness left nasolabial droop left upper extremity numbness and weakness with CT scanning showing 80 not acute right thalamic infarct. She was out of the TPA a window when presented. Carotid Dopplers were unremarkable. 4 year trend in SCr Fingerstick glucose past 72 hr Renal U/S: FINDINGS: Limited evaluation. This patient was in a great deal of pain and was unable to allow for a complete study. Right kidney: Right kidney .4 x 4.9 x 4.4 cm.. There is no hydronephrosis. No solid right renal mass. Renal cortex is normal. No detectable calculi. Left kidney: Left kidney [id number] x 5.1 x 4.3 cm. Left renal pelvis. Prominent but there is no true hydronephrosis. No solid left renal mass. Renal cortex is normal. No detectable calculi. Bladder: Prevoid bladder [id number] mL. Patient did not void. No bladder calculi. No detectable mass. Bilateral ureteral jets visualized. IMPRESSION: 1. Mildly prominent left renal pelvis. Appearance is unchanged. No true hydronephrosis 2. Distended urinary bladder Constitutional Vitals: Vital Signs Temp Pulse Resp BP Pulse Ox 36.4 C 99 H 14 130/83 95 11/24/20 12:00 11/24/20 12:00 11/24/20 12:00 11/24/20 12:00 11/24/20 12:00 Period Temp Pulse Resp BP Sys/Santiago Pulse Ox Last 24 Hr 36.3 C-36.8 C 78-99 12-18 108-137/66-83 95-99 Intake and Output 11/24/20 11/24/20 11/24/20 05:59 13:59 21:59 Intake Total 800 1280 Output Total 200 Balance 600 1280 Weight 70.67 kg Patient Weight 11/25/20 05:59 Weight 70.67 kg Intake & Output: Intake & Output 11/24/20 11/24/20 11/24/20 05:59 13:59 21:59 Intake Total 800 1280 Output Total 200 Balance 600 1280 Weight 70.67 kg Intake: Oral 800 1280 Output: Void Amount 200 Other: Meal Lunch Percent of Meal Consumed 100% Feeding Ability Independent Urine Appearance Cloudy Sediment Urine Color Pale Urine Odor Strong General appearance: cooperative and no acute distress Exam: Much improved neurologic status Head Head exam: Present atraumatic and normocephalic Eye Eye exam: Present EOMI and PERRL; Absent scleral icterus Pupils: Present PERRL ENT ENT exam: Present mucous membranes moist Neck Neck exam: Present full ROM; Absent meningismus Respiratory Respiratory exam: Present normal respiratory exam and CTAB Cardiovascular Cardiovascular exam: Present normal rate and rhythm, +S1, +S2 and systolic murmur (2/6 ESTEVAN) GI/Abdominal GI/Abdominal exam: Present normal bowel sounds and soft; Absent guarding Additional comments: Increased PVRV Extremities Exam Additional comments: Bilateral LE amputation Neurological Exam Neurological exam: Present alert, CN II-XII intact and oriented X3 Additional comments: Improved speech, motor function Psychiatric Psychiatric exam: Present anxious Skin Skin exam: Present dry; Absent pallor and rash A/P Assessment and plan (1) CKD stage 5 due to type 2 diabetes mellitus: Status: Chronic Comment: Will need left AVF and 3-6 months later initiate RISK PROFESSIONAL 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 Survival on HD is 25% mortality per year and in the past compliance has been an issue. (2) Acute cerebrovascular accident (CVA): Status: Acute Comment: Suspect right thalamic CVA or old CVA plus acute neuro changes in region old infarct due to hyperglycemia and hyperosmolarity ASA, plavix, Restarted antihypertensives and now held again due to drop in BP (3) Urinary retention with incomplete bladder emptying: Status: Chronic Comment: No hydro and ureteral jest present bilaterally so not complete obstruction, suspect narcotic effects +/- DM neurogenic Bladder. However urodynamics in past with bladder emptying at 350 cc Straight cath PRN Narrative A/P Narrative: 1. There is a greater diabetes and blood pressure are controlled speaks volumes about failure at home (diet, medication compliance, drug-seeking behavior, etc.). 2. 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 3. She will need a referral to either Dr. Pace or Dr. Martell, or the urology SUPERVISOR PASTE PLANT Kalyani Young here at [facility], for treatment of urinary retention without obstructing. 4. Follow-up with me in 2 weeks 5. Follow-up with her primary care physician in 1 week 6. Abstain from all narcotics particularly because of problem #3. 7. Discharge on current insulin regimen. 8. We will reassess tomorrow the need for any blood pressure medications at the time of discharge. 9. Absolutely no nonsteroidals 10. I have already placed a consult/referral for AV fistula creation by Dr. Patel in [place] 11. Okay for discharge tomorrow Time Spent With Patient Time: Total time spent is greater than 50% in coordination of care (as documented) at patient's floor/unit and/or counseling patient: Total time spent with greater than 50% in coordination of care (as documented) at patient's floor/unit and/or counseling patient:: Greater than 35 minutes
[2020-11-24] MEDS: ATORVASTATIN 40 MG TABLET PO SCH (20:34)
[2020-11-24] MEDS: AMITRIPTYLINE 25 MG TABLET PO SCH (20:35)
[2020-11-25] MEDS: 0.9 % SODIUM CHLORIDE 10 ML SYRINGE IV SCH ×2 (06:24→15:32)
[2020-11-25 06:48] LABS: ALT/SGPT 11 U/L (<40); AST/SGOT 15 U/L (<32); Albumin 2.5 gm/dL (3.2-5.2); Albumin/Globulin Ratio 0.9 (1.0-2.3); Alkaline Phosphatase 138 U/L (39-117); Bilirubin,Direct < 0.2 mg/dL (<0.3); Bilirubin,Total < 0.2 mg/dL (0.1-1.0); Blood Urea Nitrogen 53 mg/dL (6-20); Calcium 7.7 mg/dL (8.6-10.4); Carbon Dioxide 14 mmol/L (22-30); Chloride 110 mmol/L (96-108); Globulin 2.9 gm/dL (2.2-3.7); Glomerular Filtration Rate 10; Glucose 93 mg/dL (70-105); Lactate Dehydrogenase 136 U/L (135-225); Phosphorous 6.1 mg/dL (2.5-4.5); Triglycerides 207 mg/dL (<150); Uric Acid 5.7 mg/dL (2.5-8.0)
--- NOTE | 2020-11-25 07:54 | Nephrology Progress Note ---
SUBJECTIVE Subjective Patient information: Note initiated : 11/25/20 at 7:49 am Service Date, if different from initiated Date: [] Patient: Jeanette Gonzalez a 45 y/o F admitted on 11/20/20 for STROKE SYMPTOMS. Chief Complaint: [stroke like sx] She had signs or symptoms of a right thalamic stroke and confirmation by CT but it was not an acute stroke. May have been an old stroke with symptoms exacerbated by hyperglycemia and hyperosmolar state, sort of the equivalent of a Steffen's paralysis but involving the thalamus instead of a cortical stroke. Found to have marked urinary retention but no obstructive uropathy based on the presence of bilateral ureteral jets and absence of hydronephrosis-this is due to either narcotic effects on the bladder or diabetic autonomic neuropathy with neurogenic bladder, or a combination of the 2. She has had urodynamics last year by Dr. Marte and she was able to spontaneously void in their office. Her blood pressure and glucose have been easily controlled here in the hospital suggesting noncompliance with lifestyle issues and rather simple therapy. Arrangements have been made to send the patient for placement of an AV fistula expecting dialysis within the year, probably within a few months. Constitutional Vitals: Vital Signs Temp Pulse Resp BP Pulse Ox 36.5 C 90 12 129/78 96 11/25/20 04:32 11/25/20 04:32 11/25/20 04:32 11/25/20 04:32 11/25/20 04:32 Period Temp Pulse Resp BP Sys/Santiago Pulse Ox Last 24 Hr 36.4 C-36.9 C 90-102 12-14 109-145/76-91 95-96 Intake and Output 11/24/20 11/25/20 11/25/20 21:59 05:59 13:59 Intake Total 1040 200 Output Total 2125 Balance -1085 200 Weight 72.03 kg Intake & Output: Intake & Output 11/24/20 11/25/20 11/25/20 21:59 05:59 13:59 Intake Total 1040 200 Output Total 2125 Balance -1085 200 Weight 72.03 kg Intake: Oral 1040 200 Output: Urine Catheter Amount 1300 Void Amount 825 Other: Meal ceral/milk Cherrios, chesse sticks(2) Percent of Meal Consumed 100% 100% Feeding Ability Independent Independent Urine Appearance Clear Urine Color Pale Laboratory Tests 11/25/20 05:14 Sodium 136 Potassium 3.8 Chloride 110 H Carbon Dioxide 14 L Anion Gap 12.0 BUN 53 H Creatinine 4.9 H GFR Calculation 10 Glucose 93 Uric Acid 5.7 Calcium 7.7 L Phosphorus 6.1 H* Magnesium 1.9 Albumin 2.5 L Fingerstick glucose A/P Assessment and plan (1) Urinary retention with incomplete bladder emptying: Status: Chronic Comment: No hydro and ureteral jest present bilaterally so not complete obstruction, suspect narcotic effects +/- DM neurogenic Bladder. However urodynamics in past with bladder emptying at 350 cc Straight cath PRN (2) CKD stage 5 due to type 2 diabetes mellitus: Status: Chronic Comment: Will need left AVF and 3-6 months later initiate INTERLOCKING MACHINE OPERATOR 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 Survival on HD is 25% mortality per year and in the past compliance has been an issue. (3) Type 2 diabetes mellitus with diabetic chronic kidney disease: Status: Chronic Qualifiers: Chronic kidney disease stage: stage 2 (mild) Diabetes mellitus manager terminal insulin use: with chcf use Qualified Code(s): E11.22 - Type 2 diabetes mellitus with diabetic chronic kidney disease; N18.2 - Chronic kidney disease, stage 2 (mild); Z79.4 - [facility] (current) use of insulin (4) Benign essential hypertension: Status: Chronic Comment: Goal blood pressure is 130/80. She is on diltiazem 240 mg twice a day, lisinopril 10 mg a day, I have increased her doxazosin from 2 to 4 mg at bedtime Narrative A/P Narrative: 1. The fact that her diabetes and blood pressure are controlled speaks volumes about failure at home (diet, medication compliance, drug-seeking behavior, etc.). 2. 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 3. She will need a referral to either Dr. Pace or Dr. Martell, or the urology QUANTITATIVE ANALYST Kalyani Young here at [facility], for treatment of urinary retention without obstructing. 4. Follow-up with me in 2 weeks 5. Follow-up with her primary care physician in 1 week 6. Abstain from all narcotics particularly because of problem #3. 7. Discharge on current insulin regimen. 8. We will reassess tomorrow the need for any blood pressure medications at the time of discharge. 9. Absolutely no nonsteroidals 10. I have already placed a consult/referral for AV fistula creation by Dr. Patel in [place] 11. [place] stopped 12. OK for dischage...no less than 8 contacts with charge nurse starting at 7 am to smooth out issues priorto dischage. Time Spent With Patient Time: Total time spent is greater than 50% in coordination of care (as documented) at patient's floor/unit and/or counseling patient: Total time spent with greater than 50% in coordination of care (as documented) at patient's floor/unit and/or counseling patient:: Greater than 35 minutes
[2020-11-25] MEDS: INSULIN LISPRO 1 UNIT/0.01 ML UNIT SQ SCH ×2 (08:30→12:15)
[2020-11-25] MEDS: CITRIC ACID/SODIUM CITRATE 15 ML ORAL.SOL PO SCH ×2 (08:30→12:02)
[2020-11-25] MEDS: GABAPENTIN 300 MG CAPSULE PO SCH (08:31)
[2020-11-25] MEDS: CLOPIDOGREL 75 MG TABLET PO SCH (08:31)
[2020-11-25] MEDS: ACETAMINOPHEN 325 MG TABLET PO PRN (08:31)
[2020-11-25] MEDS: CALCIUM CARBONATE 500 MG TAB.CHEW PO SCH ×2 (08:31→12:02)
[2020-11-25] MEDS: ASPIRIN 81 MG TAB.CHEW CHEWED SCH (08:31)
[2020-11-25] MEDS: CYCLOBENZAPRINE 10 MG TABLET PO SCH ×2 (08:31→08:41)
[2020-11-25] MEDS: HEPARIN 5,000 UNIT/ML VIAL SQ SCH (08:32)
[2020-11-25] MEDS: INSULIN GLARGINE, HUMAN 1 UNIT/0.01 ML SQ SCH (08:32)
[2020-11-25 09:45] LABS: Basophils # (Auto) 0.05 K/mcL (0.00-0.20); Basophils % (Auto) 0.4 % (0.0-2.0); Eosinophils # (Auto) 0.45 K/mcL (0.00-0.70); Eosinophils % (Auto) 3.6 % (0.0-7.0); Hematocrit 22.4 % (36.0-48.0); Hemoglobin 7.1 g/dL (12.0-15.0); Lymphocytes % (Auto) 19.3 % (15.0-49.0); Mean Cell Volume 88.9 fL (80.0-100.0); Mean Corpuscular HGB Conc 31.7 g/dL (31.0-36.0); Mean Platelet Volume 8.9 fL (7.4-10.4); Monocytes % (Auto) 6.4 % (1.0-12.0); Neutrophils % (Auto) 70.3 % (38.0-78.0); Platelet Count 257 K/mcL (140-440); RBC 2.52 M/mcL (4.00-5.20); Red Cell Distribution Width 15.1 % (11.5-14.5); WBC 12.4 K/mcL (4.5-11.0)
[2020-11-25] MEDS ORDERED: SENNOSIDES 1 TABLET PO PRN (10:10)
[2020-11-25] MEDS ORDERED: MAGNESIUM CITRATE 300 ML ORAL.SOL PO ONE (10:12)
--- NOTE | 2020-11-25 13:36 | Discharge Summary ---
Discharge Provider Provider Patient information: Note initiated : 11/25/20 at 1:32 pm Service Date, if different from initiated Date: [] Patient: Jeanette Gonzalez a 45 y/o F admitted on 11/20/20 for STROKE SYMPTOMS. Discharge Diagnosis *CVA with left side numbess/hemiplegia, facial droop: strength/facial droop improving -h/o CVA w/residual left side numbness, has been on ASA, but do not see statin on home list -unable to perform MRI under sedation d/t lack of monitoring equipment -carotids patent, echo EF 55 to 60%. Grade 1 diastolic dysfunction with trace MR *DKA: A1c 10.9-clinically resolved.blood glucose low after starting home meds, Question compliance with meds at home. Continue basal prandial insulin at home. *hypotension, mild: bp low also after starting home meds, Question compliance with meds at home. 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 walls -mild improvement, then worsened again - ?retention *Urinary retention-continue doxazosin. No evidence of obstructive uropathy on renal ultrasound. Nephrology recommends against indwelling Oakley's catheter due to risk of infections. Follow-up with urology as outpatient if persistent urine retention. *Anemia, chronic: Secondary to renal disease *HTN: Currently well controlled off antihypertensives *Chronic pain: Continue twice daily gabapentin 600 mg per nephrology *Depression: *Hypothyroidism: *Diarrhea: Resolved *Hyperlipidemia/Hypertriglyceridemia: *Long-term prognosis poor per nephrology Brief Hospital Course Ms. Gonzalez is a 45 year old F Presents to the ED with left leg weakness numbness. Patient states that she has had diarrhea for the past 3 days nonbloody 2 episodes a day. Other than that she had no other illnesses. She felt relatively well going to bed last night and then woke up with some left-sided weakness at 4 she thought she had just slept on her side funny and then rolled to the right side and then when she woke up later in the morning she still had a left-sided weakness and called her mom and she took her aspirin. And then she developed left facial numbness and then they called the clinic and her mom brought her into the ED. Code stroke was called. CT noncontrast brain was unremarkable for acute pathology. He was unable to undergo CTA because of her renal function and unable to undergo MRI as she needs deep sedation for this. MRI under sedation was discussed with anesthesiologist who relayed that we do not have the monitoring equipment to perform MRI under sedation. This was discussed with stroke neurologist who felt that she did not warrant transfer and further imaging and that this could be treated medically. Says she did have a stroke when she was in [place] last year that left her with mild left-sided numbness but it is much more severe at this time. Weakness is also new as well. Blood pressure is significant elevated although it has been significantly elevated each of the previous time she is come to the hospital. Her glucose is significantly elevated in the 500s. Anion gap metabolic acidosis. EKG is normal sinus rhythm. 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 11/21 Anion gap closed. Will transition to subcu insulin. Left side weakness mildly improved. No diarrhea since admission. 11/22 Patient slept well. Patient is able to move her arm and leg more. Occasional headaches and chronic pain but otherwise no new complaints. 11/23 Patient became mildly hypotensive last night. Complains of numbness in her fac e. IV fluid bolus and hold blood pressure medications. Blood pressure and blood glucose dropped quite a bit after starting home regimen which makes me question whether not she is consistent with her medications at home. some recurrent symptoms of her stroke this morning with facial numbness and some slurring but her arm and leg are at least as strong as yesterday, maybe showing even a little bit more improvement 2/2 Patient has urinary retention although she states she only urinates several times a day and has a large volume void. Renal function worsening today will obtain a renal ultrasound to make sure there is not any hydronephrosis. Blood pressure 110's systolic without any blood pressure medication. Strength improving but numbness still present. 2/3-patient doing well. Systolic stable. Blood sugars at goal. Tolerating diet. Advised to continue basal panel insulin. Discontinue all antihypertensive except for doxazosin until follow-up with nephrology. Patient will eventually transition to dialysis after fistula placement to be coordinated by nephrology. Recommend outpatient urology and nephrology follow-up on discharge Date of admission: 11/20/20 17:40 Discharge date: 11/25/20 Primary care physician: BRIANDA Morse Consults: 11/20/20 Consult to Physician [CONS] Stat Comment: Consulting Provider: Jai Villaseñor Reason For Exam: Physician to Consult 11/20/20 12:55 Consult to Physician [CONS] Stat Comment: Consulting Provider: Cecil Knight Reason For Exam: Physician to Consult 11/21/20 07:57 Consult to Physician [CONS] Routine Comment: Consulting Provider: Rojelio Walls Reason For Exam: Physician to Consult Discharge Meds Discharge Medications Home Medications blood sugar diagnostic #20 each 05/21/18 [History Confirmed 10/07/20 Last Taken 01/29/19 18:00] blood-glucose meter #1 each 05/21/18 [History Confirmed 10/07/20 Last Taken 01/29/19 18:00] lancets #50 each 05/21/18 [History Confirmed 10/07/20 Last Taken 01/29/19 18:00] pen needle, diabetic 1 each MISCELLANE ACHS 05/21/18 [History Confirmed 11/20/20 Last Taken 11/19/20 21:00 4 units] insulin detemir U-100 100 unit/mL (3 mL) subcutaneous pen 30 unit SUB-Q BID #15 ml 11/25/19 [Rx Confirmed 11/20/20 Last Taken 11/19/20 21:00] insulin lispro 100 unit/mL subcutaneous solution 1 unit SUB-Q DAILY 11/25/19 [History Confirmed 11/20/20 Last Taken 11/19/20 10:00] amitriptyline 25 mg tablet 25 mg PO QHS #30 tab 10/07/20 [Rx Confirmed 11/20/20 Last Taken 11/19/20 21:00] aspirin 81 mg tablet,delayed release 81 mg PO QDAY 10/07/20 [History Confirmed 11/20/20 Last Taken 11/19/20 10:00] cyclobenzaprine 10 mg tablet 10 mg PO BID tab 10/07/20 [History Confirmed 11/20/20 Last Taken 11/19/20 21:00] doxazosin 4 mg tablet 4 mg PO QHS #30 tab 10/07/20 [Rx Confirmed 11/20/20 Last Taken 11/12/20 21:00] atorvastatin 80 mg PO HS #30 tab 11/22/20 [Rx Last Taken Unknown] clopidogrel 75 mg PO DAILY #30 tab 11/22/20 [Rx Last Taken Unknown] gabapentin 600 mg PO BID #15 tab 11/25/20 [Rx Last Taken Unknown] COURSE Hospital Course Hospital course: . Discharge diagnosis: DKA, acute on chronic kidney injury Time Spent with Patient Time attestation: Total time spent providing and/or coordinating discharge services: EXAM Constitutional Vitals: Temp Pulse Resp BP Pulse Ox 97.2 F 85 12 136/84 92 11/25/20 12:00 11/25/20 12:00 11/25/20 12:00 11/25/20 12:00 11/25/20 12:00 Discharge Data Data Completed and Pending Labs on day of discharge: Labs from last 24 hours 11/25/20 11/25/20 08:50 05:14 WBC 12.4 H RBC 2.52 L Hgb 7.1 L Hct 22.4 L MCV 88.9 MCH 28.2 MCHC 31.7 RDW 15.1 H Plt Count 257 MPV 8.9 Neut % (Auto) 70.3 Lymph % (Auto) 19.3 [place] % (Auto) 6.4 Eos % (Auto) 3.6 Baso % (Auto) 0.4 Lymph # (Auto) 2.40 [place] # (Auto) 0.80 Eos # (Auto) 0.45 Baso # (Auto) 0.05 Absolute Neutrophils 8.73 H Sodium 136 Potassium 3.8 Chloride 110 H Carbon Dioxide 14 L Anion Gap 12.0 BUN 53 H Creatinine 4.9 H GFR Calculation 10 Glucose 93 Uric Acid 5.7 Calcium 7.7 L Phosphorus 6.1 H* Magnesium 1.9 Total Bilirubin < 0.2 Direct Bilirubin < 0.2 GGT 19 AST 15 ALT 11 Alkaline Phosphatase 138 H Lactate Dehydrogenase 136 Total Protein 5.4 L Albumin 2.5 L Globulin 2.9 Albumin/Globulin Ratio 0.9 L Triglycerides 207 H Discharge Plan Patient/Caregiver Discharge Instructions Activity: increase activity as tolerated Diet: Renal/Consistent Carbs Activity Restrictions/Additional Instructions: Follow-up with nephrology as scheduled. Recommend follow-up with urology on discharge for evaluation of urinary retention in the next 2 weeks Continue medications as advised above Continue close follow-up and management of diabetes with regular blood sugar checks/CC diet/insulin Continue aspirin/Plavix/statin for CVA prophylaxis Return to ER if worsening neurological changes/fever chills shortness of breath noted Prescriptions: New atorvastatin 40 mg Tablet 80 mg PO HS Qty: 30 RF: 0 clopidogrel 75 mg Tablet 75 mg PO DAILY Qty: 30 RF: 0 Continued (DME) lancets [[facility] Ultra[facility]ets] [facility] See Dose Instructions each .ROUTE .MEDSUPPLY Qty: 50 RF: 0 (DME) blood sugar diagnostic [OneTouch Verio test strips] strip See Dose Instructions order .ROUTE .MEDSUPPLY Qty: 20 RF: 0 (DME) blood-glucose meter [OneTouch Verio Flex meter] misc See Dose Instructions each .ROUTE .MEDSUPPLY Qty: 1 RF: 0 pen needle, diabetic 1 each MISCELLANE ACHS RF: 0 Levemir FlexTouch U-100 Insuln 100 unit/mL (3 mL) insulin pen 30 unit SUB-Q BID Qty: 15 RF: 11 insulin lispro 100 unit/mL solution 1 unit SUB-Q DAILY RF: 0 cyclobenzaprine 10 mg tablet 10 mg PO BID RF: 0 aspirin [Adult Aspirin Regimen] 81 mg tablet,delayed release (DR/EC) 81 mg PO QDAY RF: 0 amitriptyline 25 mg tablet 25 mg PO QHS Qty: 30 RF: 11 doxazosin 4 mg tablet 4 mg PO QHS Qty: 30 RF: 11 Changed gabapentin 600 mg tablet 600 mg PO BID Qty: 15 RF: 2 Discontinued lisinopril 10 mg tablet 10 mg PO QHS Qty: 30 RF: 11 diltiazem HCl 240 mg capsule,extended release 24 hr 240 mg PO BID Qty: 60 RF: 0 Follow Up Plan Follow up with: Rojelio Walls MD [Physician] - Scot Salamanca ARNP [Primary Care Provider] - Patient Disposition: Home, Self-Care Prognosis: Undetermined Rehab Potential: Fair I certify that the patient requires SNF services: Yes Overall status at discharge: patient is not back to baseline Discharge Orders: Discharge Order (Routine); Ordered 11/25/20 Ordered By: Raman TODD VTE Deep Vein Thrombosis/Pulmonary Embolism Present on Admission: No
[2020-11-25] MEDS ORDERED: DOCUSATE SODIUM 100 MG CAPSULE PO SCH (21:00)
== END 2020-11-25 15:33 | disposition home or self-care (01) | DRG 64 ==
LOC: ED 12:46 → ICU 17:40 → MEDSUR 11-22 13:36
PROVIDERS: ADMIT Internal Medicine; ATTEND Internal Medicine

== ENCOUNTER 2022-02-14 15:32 | Inpatient (IN) ==
[2022-02-14] MEDS ORDERED: ACETAMINOPHEN 1,000 MG/100 ML BAG IV ONE (19:19)
[2022-02-14] MEDS ORDERED: 0.9 % SODIUM CHLORIDE 500 ML IV ONE (19:19)
[2022-02-14] MEDS ORDERED: HYDROmorphone 0.5 MG/0.5 ML SYRINGE IV ONE ×2 (19:19→21:29)
[2022-02-14] MEDS ORDERED: ONDANSETRON 4 MG/2 ML VIAL IV ONE (19:19)
--- NOTE | 2022-02-14 19:26 | Emergency Department Note ---
Nausea/Vomiting/Diarrhea HPI <Monika Candelario PA-C - Last Filed: 02/14/22 20:28> General Chief complaint: Nausea/Vomiting/Diarrhea Stated complaint: N/V/D Time Seen by Provider: 02/14/22 15:49 Source: patient Mode of arrival: wheelchair Limitations: no limitations History of Present Illness HPI Narrative: This a 46-year-old female patient with history of ESRD on dialysis Monday//Monday, T2DM, osteomyelitis status post bilateral BKA who presents with nausea/vomiting/diarrhea that started last night. She describes her diarrhea as loose and black tarry stool x 2 last night that resolved. Then, this morning she had several more episodes of black stools. She also endorses 2 episodes of vomiting up "black stuff" this morning. No ill contacts. No history of GI bleeding. No history of gastric ulcers. She is on daily low-dose aspirin. Denies F/C/S. Complains of severe abdominal cramping. No history of diverticulitis. Previous abdominal surgeries include a partial hysterectomy, appendectomy, and cholecystectomy. Related Data Home Medications Medication Instructions Recorded Confirmed blood sugar diagnostic (OneTouch #20 each 05/21/18 12/16/21 Verio test strips) blood-glucose meter (OneTouch #1 each 05/21/18 12/16/21 Verio Flex meter) lancets (OneTouch UltraSoft #50 each 05/21/18 12/16/21 Lancets) amitriptyline 25 mg tablet 1 tab PO HS 11/04/21 02/14/22 amlodipine 10 mg tablet 10 mg PO HS 11/04/21 02/14/22 aspirin 81 mg chewable tablet 1 tab PO QDAY 11/04/21 02/14/22 atorvastatin 80 mg tablet 1 tab PO HS 11/04/21 02/14/22 levothyroxine 25 mcg tablet 1 tab PO QAM 11/04/21 02/14/22 lisinopril 40 mg tablet 40 mg PO QAM 11/04/21 02/14/22 pantoprazole 40 mg tablet,delayed 1 tab PO QAM 11/04/21 02/14/22 release Previous Rx's Medication Instructions Recorded insulin glargine 100 unit/mL (3 5 unit (0.05 mL) SUBCUT QAM #15 ml 05/04/21 mL) subcutaneous pen (Lantus Solostar U-100 Insulin) ergocalciferol (vitamin D2) 1,250 1,250 mcg PO QWEEK #8 cap 08/31/21 mcg (50,000 unit) capsule gabapentin 600 mg tablet See Rx Instructions PO QDAY #60 tab 01/25/22 Allergies Allergy/AdvReac Type Severity Reaction Status Date / Time vancomycin Allergy Severe Anaphylaxis Verified 02/14/22 15:35 adhesive tape AdvReac Mild rash and Verified 02/14/22 15:35 allergy escitalopram [From Lexapro] AdvReac Mild Diarrhea Verified 02/14/22 15:35 fentanyl AdvReac Mild halucinations Verified 02/14/22 15:35 and confusion fluoxetine [From Prozac] AdvReac Mild Nausea Verified 02/14/22 15:35 ketorolac [From Toradol] AdvReac Mild Vomiting Verified 02/14/22 15:35 metformin AdvReac Mild Nausea Verified 02/14/22 15:35 methocarbamol AdvReac Mild Nausea Verified 02/14/22 15:35 metoclopramide [From Reglan] AdvReac Mild Shakiness Verified 02/14/22 15:35 morphine AdvReac Mild Headache Verified 02/14/22 15:35 NSAIDS (Non-Steroidal AdvReac Mild nausea/rash Verified 12/16/21 13:44 Anti-Inflamma Paroxetine [From Paxil] AdvReac Mild Nausea Verified 12/16/21 13:44 Penicillins AdvReac Mild Nausea Verified 12/16/21 13:44 promethazine [From Phenergan] AdvReac Mild Shakiness Verified 12/16/21 13:44 Sulfa (Sulfonamide AdvReac Mild Nausea Verified 12/16/21 13:44 Antibiotics) Review of Systems <Monika Candelario PA-C - Last Filed: 02/14/22 20:28> ROS ROS Narrative: Narrative: All systems ED: reviewed and negative except as stated. 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) 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) CKD (chronic kidney disease) stage 2, GFR 60-89 ml/min (Chronic) Chronic back pain (Chronic) 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 use (Chronic) Lumbar back pain (Chronic) Ex-smoker (Chronic) DDD (degenerative disc disease), lumbosacral (Chronic) Benign essential hypertension (Chronic) Hyperlipidemia (Chronic) Hypothyroidism (Chronic) Noncompliance with medication regimen (Chronic) Hepatomegaly (Chronic) Genital herpes (Chronic) Depression, major, recurrent, moderate (Chronic) Sepsis due to undetermined organism without resultant organ failure (Chronic) Pyelonephritis (Chronic) Osteomyelitis of toe of right foot (Chronic) Abdominal pain (Chronic) Hyperglycemia (Chronic) Osteomyelitis (Chronic) Osteomyelitis due to type 2 diabetes mellitus (Chronic) Chest pain, non-cardiac (Chronic) Hyperglycemia without ketosis (Chronic) Osteomyelitis (Chronic) Nausea (Chronic) Flank pain (Chronic) Diabetic gastroparesis (Chronic) Paronychia (Chronic) Cellulitis, toe (Chronic) Cellulitis (Chronic) Gastroenteritis (Chronic) Essential hypertension (Chronic) History of kidney stones (Chronic) Citrobacter infection (Acute) Cellulitis of foot (Acute) Uncontrolled diabetes mellitus due to underlying condition with diabetic arthropathy (Chronic) Postoperative pain (Acute) Chest pain (Acute) Hyperglycemia (Acute) D-dimer, elevated (Acute) Type 2 diabetes mellitus with diabetic nephropathy, with long-term current use of insulin (Acute) Esophageal pain (Acute) Acute hyperglycemia (Acute) Nausea, vomiting and diarrhea (Acute) Abdominal pain (Acute) Acute urinary retention (Acute) Acute renal failure superimposed on chronic kidney disease (Acute) Urinary tract infection (Acute) Uncontrolled type 2 diabetes mellitus (Acute) Acute urinary retention (Acute) Acute urinary retention (Acute) Bladder infection (Acute) History of chronic kidney disease (Acute) Urinary retention (Chronic) Yeast dermatitis (Acute) Diarrhea (Acute) Phantom pain after amputation of lower extremity (Acute) Acute cerebrovascular accident (CVA) (Acute) Acute on chronic kidney failure (Acute) DKA (diabetic ketoacidosis) (Acute) CKD stage 5 due to type 2 diabetes mellitus (Chronic) Urinary retention with incomplete bladder emptying (Chronic) Paresthesia (Acute) Candiduria (Acute) Phantom limb pain (Acute) Vitamin D deficiency (Acute) Hemodialysis catheter infection (Acute) Acute lumbar back pain (Acute) ESRD (end stage renal disease) (Acute) Bruising (Acute) Acute CVA (cerebrovascular accident) (Acute) Vitamin A deficiency (Acute) Hyperparathyroidism due to ESRD on dialysis (Acute) S/P bilateral BKA (below knee amputation) (Acute) Post-operative pain (Acute) Acute pain of right lower extremity (Acute) Sore throat due to virus (Acute) COVID-19 in immunocompromised patient (Acute) Acute dyspnea (Acute) COVID-19 (Acute) ESRD (end stage renal disease) on dialysis (Acute) Anemia (Acute) Abscess (Acute) Abscess of groin, left (Acute) Low back strain (Acute) Medical History Abdominal pain Acquired absence of left great toe Acute bilateral ankle pain Irrigation of foot performed. Coagulated blood with some necrotic tissue. Mild sedation with Fentanyl administered. Numbed area with 2% lidocaine pain 7cc local after consent and time-out. Partially closed with 3-0 nylon in horizontal mattress stitch. Patient to continue Doxycycline as her infectious disease physician has perscribed. Follow-up in Podiatry clinic on Monday09/25/17. ARF (acute renal failure) with tubular necrosis ATN with sepsis and post op orthopedic surgery. Acute HD for ~ 1 week Revolved with near normal GFR Benign essential hypertension Goal blood pressure is 130/80. She is on diltiazem 240 mg twice a day, lisinopril 10 mg a day, I have inc reased her doxazosin from 2 to 4 mg at bedtime Burn of third degree of left foot, subsequent encounter Cellulitis Cellulitis Cellulitis and abscess of foot S/P I/D of abxcess with surgical debridement about a week ago at [facility]. Plan: On going wound care and check non invasive vascular studies. TBI and Sensilase. Cellulitis, toe Chest pain, non-cardiac Chronic back pain Chronic leg pain Citrobacter infection Debris in bladder. Urine with high glucose => UTI vs colonization CKD (chronic kidney disease) stage 2, GFR 60-89 ml/min Coagulase-negative staphylococcal infection Contusion of foot with skin surface intact DDD (degenerative disc disease), lumbosacral Depression, major, recurrent, moderate Diabetes Diabetes mellitus with foot ulcer due to multiple causes Continue current wound care for right foot plantar ulcer and fungal infection between toes. Diabetic foot infection Diabetic foot ulcer Diabetic gastroparesis Diabetic peripheral neuropathy Diarrhea Elevated hemoglobin A1c Elevated liver enzymes Elevated sed rate Essential hypertension CCB and ACEi Optimize Rx for DM nephropathy and proteinuria Ex-smoker Flank pain Gangrene of toe Gastroenteritis Genital herpes Hepatomegaly History of kidney stones Currently asymptomatic Hyperglycemia Hyperglycemia due to type 1 diabetes mellitus Hyperglycemia due to type 2 diabetes mellitus Chronic malnutrition. Low pre albumin, improved 07/2017 Nutrition / Dietary consult and Diabetic Teaching. 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 Will change dressings prior to discharge and follow a week following discharge in clinic. Paronychia Pyelonephritis Risk factors are DM & constant glucosuria Sepsis affecting skin CSSSI right 5 th toe. ? Necrotizing skin infection Abscess with superimposed cellulitis. Needs OR debridement, possible toe amputation. Sepsis due to undetermined organism without resultant organ failure Tachycardia Type 1 diabetes mellitus Type 2 diabetes mellitus with diabetic chronic kidney disease Ulcer of left foot Urinary retention Urinary tract infection Wound infection Surgical History History of appendectomy History of cholecystectomy History of incision and drainage (01/01/18) Left foot, 12/28/17 and 01/01/18 History of partial hysterectomy History of tubal ligation Status post amputation of toe (05/10/18) Left fifth toe Status post right foot surgery Family History Mother Diabetes Father Diabetes Brother Diabetes Sister Diabetes Other Abdominal pain Cellulitis DKA (diabetic ketoacidoses) Hyperglycemia Nausea, vomiting and diarrhea Osteomyelitis Osteomyelitis due to type 2 diabetes mellitus Vomiting Social History Smoking Status: Former smoker Alcohol Intake Frequency: does not drink Substance Use: does not use Exam <Monika Candelario PA-C - Last Filed: 02/14/22 20:28> Narrative Narrative: General: AOx3, NAD, nontoxic appearing. Tearful but pleasant and conversant. HEENT: PERRL, EOMI, normocephalic. Dry mucous membranes. Normal facies and normal dentition. Respiratory: Lungs clear to auscultation bilaterally. No respiratory distress. Unlabored breathing. Heart: Regular rate and rhythm, no murmurs/clicks/rubs. Abdomen: Generalized abdominal tenderness, non distended, normal bowel tones. No organomegaly. Extremities: Bilateral BKA. Upper extremities warm and well perfused. Neuro: No focal deficits. Cranial nerves II-XII grossly normal. Moves all 4 spontaneously. Skin: Warm dry, no rashes or lesions, no cyanosis. Psych: Tearful and anxious mood and affect Heme/Lymph: No abnormal bruising General Limitations: no limitations Course <Monika Candelario PA-C - Last Filed: 02/14/22 20:28> Course Course Narrative: 46-year-old female with ESRD on dialysis presents for 24 hours of melanotic stools and nausea/vomiting Reevaluation(s) Reevaluation #1: CBC, CMP Establish IV and give 500 mL IV fluids. Patient has dialysis tomorrow. Stool guaiac was positive, start IV Protonix 0.5 mg IV Dilaudid x1 dose for pain and 1000 mg IV tylenol, 4 mg IV Zofran Vital Signs Vital signs: Vital Signs Temperature 97.9 F 02/14/22 15:32 Pulse Rate 85 02/14/22 15:32 Respiratory Rate 18 02/14/22 15:32 Blood Pressure 176/92 02/14/22 15:32 Pulse Oximetry (%) 100 02/14/22 15:32 Temperature 97.9 F 02/14/22 22:11 Pulse Rate 79 02/15/22 00:01 Respiratory Rate 14 02/15/22 00:01 Blood Pressure 156/77 02/15/22 00:01 Pulse Oximetry (%) 98 02/15/22 00:01 <Ricardo Burt MD - Last Filed: 02/15/22 02:27> Vital Signs Vital signs: Vital Signs Temperature 97.9 F 02/14/22 15:32 Pulse Rate 85 02/14/22 15:32 Respiratory Rate 18 02/14/22 15:32 Blood Pressure 176/92 02/14/22 15:32 Pulse Oximetry (%) 100 02/14/22 15:32 Temperature 97.9 F 02/14/22 22:11 Pulse Rate 79 02/15/22 00:01 Respiratory Rate 14 02/15/22 00:01 Blood Pressure 156/77 02/15/22 00:01 Pulse Oximetry (%) 98 02/15/22 00:01 [facility] <Monika Candelario PA-C - Last Filed: 02/14/22 20:28> [facility] Narrative Medical decision making narrative: Nausea vomiting diarrhea GI bleeding Laboratory work-up is currently pending. Patient did have a positive stool guaiac. I signed the patient out to Dr. Goff at change of shift. Please see his note for further details and plan of care. Lab Data Result diagrams: 02/14/22 19:53 02/14/22 19:53 Labs: Lab Results 02/14/22 02/14/22 02/14/22 Range/Units 19:53 19:53 19:55 WBC 9.7 (4.5-11.0) K/mcL RBC 3.58 L (3.59-5.38) M/mcL Hgb 10.5 L (11.2-15.7) g/dL Hct 30.6 L (34.1-44.9) % POC Hct 29.0 L (36-48) MCV 85.5 (80.0-100.0) fL MCH 29.3 (26.0-34.0) pg MCHC 34.3 (31.0-36.0) g/dL RDW 12.9 (11.5-14.5) % Plt Count 128 L (140-440) K/mcL MPV 11.0 H (7.4-10.4) fL Neut % (Auto) 60.6 (38.0-78.0) % Lymph % (Auto) 29.2 (15.5-49.0) % [place] % (Auto) 6.0 (1.0-12.0) % Eos % (Auto) 3.5 (0.0-7.0) % Baso % (Auto) 0.7 (0.0-2.0) % Lymph # (Auto) 2.84 (1.50-4.80) K/mcL [place] # (Auto) 0.58 (0.10-0.90) K/mcL Eos # (Auto) 0.34 (0.00-0.70) K/mcL Baso # (Auto) 0.07 (0.00-0.30) K/mcL Absolute Neutrophils 5.91 (1.80-8.00) K/mcL POC Sodium 131 L (133-145) Sodium 128 L (133-145) mmol/L POC Potassium 4.7 (3.3-5.1) Potassium 4.9 (3.3-5.1) mmol/L POC Chloride 99 (96-108) Chloride 95 L (96-108) mmol/L Carbon Dioxide 18 L (22-30) mmol/L POC Total CO2 22.0 (22-30) Anion Gap 15.0 (8.0-16.0) POC BUN 42 H (6-20) BUN 31 H (6-20) mg/dL Creatinine 5.9 H* (0.6-1.1) mg/dL POC Creatinine 7.4 H* (0.6-1.2) GFR Calculation 8 Glucose 163 H (70-105) mg/dL POC Glucose 171 H (70-105) Calcium 8.7 (8.6-10.4) mg/dL POC WB Ioniz Calcium 1.05 L (1.16-1.32) Total Bilirubin 0.3 (0.1-1.0) mg/dL AST 25 (<32) U/L ALT 18 (<40) U/L Alkaline Phosphatase 98 (39-117) U/L Total Protein 6.9 (5.9-8.4) gm/dL Albumin 3.6 (3.2-5.2) gm/dL Globulin 3.3 (2.2-3.7) gm/dL Albumin/Globulin Ratio 1.1 (1.0-2.3) Lipase 36 (7-60) U/L <Ricardo Burt MD - Last Filed: 02/15/22 02:27> [facility] Narrative Medical decision making narrative: Nausea vomiting diarrhea GI bleeding Laboratory work-up is currently pending. Patient did have a positive stool guaiac. I signed the patient out to Dr. Goff at change of shift. Please see his note for further details and plan of care. Dr. Burt Note: Patient had hemoglobin of 10.5 which shows only half a point lower than her 11 hemoglobin 4 months ago. In brief the patient had black emesis which I suspect was coffee-ground and had melanotic stool which I suspect is GI bleed. I discussed the case with our hospitalist who came down to the emerge department evaluated the patient and admitted her to the hospital for further care. Lab Data Labs: Lab Results 02/14/22 02/14/22 02/14/22 Range/Units 19:53 19:53 19:55 WBC 9.7 (4.5-11.0) K/mcL RBC 3.58 L (3.59-5.38) M/mcL Hgb 10.5 L (11.2-15.7) g/dL Hct 30.6 L (34.1-44.9) % POC Hct 29.0 L (36-48) MCV 85.5 (80.0-100.0) fL MCH 29.3 (26.0-34.0) pg MCHC 34.3 (31.0-36.0) g/dL RDW 12.9 (11.5-14.5) % Plt Count 128 L (140-440) K/mcL MPV 11.0 H (7.4-10.4) fL Neut % (Auto) 60.6 (38.0-78.0) % Lymph % (Auto) 29.2 (15.5-49.0) % [place] % (Auto) 6.0 (1.0-12.0) % Eos % (Auto) 3.5 (0.0-7.0) % Baso % (Auto) 0.7 (0.0-2.0) % Lymph # (Auto) 2.84 (1.50-4.80) K/mcL [place] # (Auto) 0.58 (0.10-0.90) K/mcL Eos # (Auto) 0.34 (0.00-0.70) K/mcL Baso # (Auto) 0.07 (0.00-0.30) K/mcL Absolute Neutrophils 5.91 (1.80-8.00) K/mcL POC Sodium 131 L (133-145) Sodium 128 L (133-145) mmol/L POC Potassium 4.7 (3.3-5.1) Potassium 4.9 (3.3-5.1) mmol/L POC Chloride 99 (96-108) Chloride 95 L (96-108) mmol/L Carbon Dioxide 18 L (22-30) mmol/L POC Total CO2 22.0 (22-30) Anion Gap 15.0 (8.0-16.0) POC BUN 42 H (6-20) BUN 31 H (6-20) mg/dL Creatinine 5.9 H* (0.6-1.1) mg/dL POC Creatinine 7.4 H* (0.6-1.2) GFR Calculation 8 Glucose 163 H (70-105) mg/dL POC Glucose 171 H (70-105) Calcium 8.7 (8.6-10.4) mg/dL POC WB Ioniz Calcium 1.05 L (1.16-1.32) Total Bilirubin 0.3 (0.1-1.0) mg/dL AST 25 (<32) U/L ALT 18 (<40) U/L Alkaline Phosphatase 98 (39-117) U/L Total Protein 6.9 (5.9-8.4) gm/dL Albumin 3.6 (3.2-5.2) gm/dL Globulin 3.3 (2.2-3.7) gm/dL Albumin/Globulin Ratio 1.1 (1.0-2.3) Lipase 36 (7-60) U/L Discharge Plan Patient/Caregiver Discharge Instructions Pt seen by [facility]/PA only: No (Esau Burt) Clinical Impression: GIB (gastrointestinal bleeding) Patient Disposition: Xfer As Inpt ([facility]) Condition: Fair Discharge Date/Time: 02/14/22 22:11
[2022-02-14] MEDS ORDERED: PANTOPRAZOLE 40 MG VIAL IV ONE (19:29)
[2022-02-14 20:00] LABS: POC Calcium, Ionized 1.05 (1.16-1.32); POC Creatinine 7.4 (0.6-1.2); POC Potassium 4.7 (3.3-5.1)
[2022-02-14 20:42] LABS: Basophils # (Auto) 0.07 K/mcL (0.00-0.30); Basophils % (Auto) 0.7 % (0.0-2.0); Eosinophils # (Auto) 0.34 K/mcL (0.00-0.70); Eosinophils % (Auto) 3.5 % (0.0-7.0); Hematocrit 30.6 % (34.1-44.9); Hemoglobin 10.5 g/dL (11.2-15.7); Lymphocytes # (Auto) 2.84 K/mcL (1.50-4.80); Lymphocytes % (Auto) 29.2 % (15.5-49.0); Mean Cell Volume 85.5 fL (80.0-100.0); Mean Corpuscular HGB Conc 34.3 g/dL (31.0-36.0); Monocytes # (Auto) 0.58 K/mcL (0.10-0.90); Neutrophils % (Auto) 60.6 % (38.0-78.0); Platelet Count 128 K/mcL (140-440); RBC 3.58 M/mcL (3.59-5.38); Red Cell Distribution Width 12.9 % (11.5-14.5); WBC 9.7 K/mcL (4.5-11.0)
[2022-02-14 20:48] LABS: ALT/SGPT 18 U/L (<40); AST/SGOT 25 U/L (<32); Albumin 3.6 gm/dL (3.2-5.2); Albumin/Globulin Ratio 1.1 (1.0-2.3); Alkaline Phosphatase 98 U/L (39-117); Bilirubin,Total 0.3 mg/dL (0.1-1.0); Blood Urea Nitrogen 31 mg/dL (6-20); Calcium 8.7 mg/dL (8.6-10.4); Carbon Dioxide 18 mmol/L (22-30); Chloride 95 mmol/L (96-108); Globulin 3.3 gm/dL (2.2-3.7); Glomerular Filtration Rate 8; Glucose 163 mg/dL (70-105)
--- NOTE | 2022-02-14 21:48 | Internal Med History&Physical ---
HPI History of Present Illness Patient information: Note initiated : 02/14/22 at 9:44 pm Service Date, if different from initiated Date: [] Patient: Jeanette Gonzalez 46 y/o F admitted on for N/V/D. Chief Complaint: [] History of present illness: Ms. Gonzalez is a 46-year-old female with a history of hypertension, diabetes mellitus, prior CVA, ESRD on hemodialysis, chronic anemia of ESRD, hypothyroidism, GERD, status post bilateral BKA presented to the emergency department for about 24 hours of abdominal pain, nausea, vomiting coffee ground material, diarrhea with melanotic stools. In the ED, the patient's hemoglobin was approximately at her baseline. Vitals were stable, blood pressure somewhat high as the patient has not taken her blood pressure medications today. Hospital medicine was consulted for admission due to concern of a gastroint estinal bleed. Upon evaluation the patient was found to have diffuse abdominal pain with guarding and rebound tenderness. Review of systems Constitutional: no fever, fatigue, or weight loss Eyes: no vision changes or pain Cardiovascular: no chest pain, no palpitations Respiratory: no cough or dyspnea Gastrointestinal: Positive for abdominal pain, nausea, vomiting, diarrhea. Genitourinary: no dysuria or difficulty voiding Musculoskeletal: no arthralgia or myalgia Integumentary: no skin lesion or wound Neurological: no focal weakness or numbness Psychiatric: no anxiety or depression Physical exam Head: Atraumatic, normal inspection. Eyes: normal appearance, no scleral icterus. Neck: full ROM Respiratory: no respiratory distress. Cardiovascular: normal rate and rhythm, S1, S2. GI/Abdominal: Diffuse abdominal pain greater in the left lower quadrant, guarding and rebound tenderness present. Extremities: Bilateral lower extremity BKA. Neurological: CN II-XII intact, intact motor, intact sensation. Psychiatric: normal mood. 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) CKD (chronic kidney disease) stage 2, GFR 60-89 ml/min (Chronic) Chronic back pain (Chronic) MCC prescription opiate use (Chronic) Lumbar back pain (Chronic) Ex-smoker (Chronic) DDD (degenerative disc disease), lumbosacral (Chronic) Benign essential hypertension (Chronic) Hyperlipidemia (Chronic) Hypothyroidism (Chronic) Noncompliance with medication regimen (Chronic) Hepatomegaly (Chronic) Genital herpes (Chronic) Depression, major, recurrent, moderate (Chronic) Sepsis due to undetermined organism without resultant organ failure (Chronic) Pyelonephritis (Chronic) Osteomyelitis of toe of right foot (Chronic) Abdominal pain (Chronic) Hyperglycemia (Chronic) Osteomyelitis (Chronic) Osteomyelitis due to type 2 diabetes mellitus (Chronic) Chest pain, non-cardiac (Chronic) Hyperglycemia without ketosis (Chronic) Osteomyelitis (Chronic) Nausea (Chronic) Flank pain (Chronic) Diabetic gastroparesis (Chronic) Paronychia (Chronic) Cellulitis, toe (Chronic) Cellulitis (Chronic) Gastroenteritis (Chronic) Essential hypertension (Chronic) History of kidney stones (Chronic) Citrobacter infection (Acute) Cellulitis of foot (Acute) Uncontrolled diabetes mellitus due to underlying condition with diabetic arthropathy (Chronic) Postoperative pain (Acute) Chest pain (Acute) Hyperglycemia (Acute) D-dimer, elevated (Acute) Type 2 diabetes mellitus with diabetic nephropathy, with long-term current use of insulin (Acute) Esophageal pain (Acute) Acute hyperglycemia (Acute) Nausea, vomiting and diarrhea (Acute) Abdominal pain (Acute) Acute urinary retention (Acute) Acute renal failure superimposed on chronic kidney disease (Acute) Urinary tract infection (Acute) Uncontrolled type 2 diabetes mellitus (Acute) Acute urinary retention (Acute) Acute urinary retention (Acute) Bladder infection (Acute) History of chronic kidney disease (Acute) Urinary retention (Chronic) Yeast dermatitis (Acute) Diarrhea (Acute) Phantom pain after amputation of lower extremity (Acute) Acute cerebrovascular accident (CVA) (Acute) Acute on chronic kidney failure (Acute) DKA (diabetic ketoacidosis) (Acute) CKD stage 5 due to type 2 diabetes mellitus (Chronic) Urinary retention with incomplete bladder emptying (Chronic) Paresthesia (Acute) Candiduria (Acute) Phantom limb pain (Acute) Vitamin D deficiency (Acute) Hemodialysis catheter infection (Acute) Acute lumbar back pain (Acute) ESRD (end stage renal disease) (Acute) Bruising (Acute) Acute CVA (cerebrovascular accident) (Acute) Vitamin A deficiency (Acute) Hyperparathyroidism due to ESRD on dialysis (Acute) S/P bilateral BKA (below knee amputation) (Acute) Post-operative pain (Acute) Acute pain of right lower extremity (Acute) Sore throat due to virus (Acute) COVID-19 in immunocompromised patient (Acute) Acute dyspnea (Acute) COVID-19 (Acute) ESRD (end stage renal disease) on dialysis (Acute) Anemia (Acute) Abscess (Acute) Abscess of groin, left (Acute) Low back strain (Acute) Medical History Abdominal pain Acquired absence of left great toe Acute bilateral ankle pain Irrigation of foot performed. Coagulated blood with some necrotic tissue. Mild sedation with Fentanyl administered. Numbed area with 2% lidocaine pain 7cc local after consent and time-out. Partially closed with 3-0 nylon in horizontal mattress stitch. Patient to continue Doxycycline as her infectious disease physician has perscribed. Follow-up in Podiatry clinic on Monday09/25/17. ARF (acute renal failure) with tubular necrosis ATN with sepsis and post op orthopedic surgery. Acute HD for ~ 1 week Revolved with near normal GFR Benign essential hypertension Goal blood pressure is 130/80. She is on diltiazem 240 mg twice a day, lisinopril 10 mg a day, I have increased her doxazosin from 2 to 4 mg at bedtime Burn of third degree of left foot, subsequent encounter Cellulitis Cellulitis Cellulitis and abscess of foot S/P I/D of abxcess with surgical debridement about a week ago at [facility]. Plan: On going wound care and check non invasive vascular studies. TBI and Sensilase. Cellulitis, toe Chest pain, non-cardiac Chronic back pain Chronic leg pain Citrobacter infection Debris in bladder. Urine with high glucose => UTI vs colonization CKD (chronic kidney disease) stage 2, GFR 60-89 ml/min Coagulase-negative staphylococcal infection Contusion of foot with skin surface intact DDD (degenerative disc disease), lumbosacral Depression, major, recurrent, moderate Diabetes Diabetes mellitus with foot ulcer due to multiple causes Continue current wound care for right foot plantar ulcer and fungal infection between toes. Diabetic foot infection Diabetic foot ulcer Diabetic gastroparesis Diabetic peripheral neuropathy Diarrhea Elevated hemoglobin A1c Elevated liver enzymes Elevated sed rate Essential hypertension CCB and ACEi Optimize Rx for DM nephropathy and proteinuria Ex-smoker Flank pain Gangrene of toe Gastroenteritis Genital herpes Hepatomegaly History of kidney stones Currently asymptomatic Hyperglycemia Hyperglycemia due to type 1 diabetes mellitus Hyperglycemia due to type 2 diabetes mellitus Chronic malnutrition. Low pre albumin, improved 07/2017 Nutrition / Dietary consult and Diabetic Teaching. Hyperglycemia without ketosis Hyperlipidemia Hyperosmolar non-ketotic state in patient with type 2 diabetes mellitus Hyponatremia Hypothyroidism Laceration Leg pain, left MCC (current) use of insulin MCC prescription opiate use Lumbar back pain Nausea Nausea Noncompliance with medication regimen Osteomyelitis Osteomyelitis Osteomyelitis due to type 1 diabetes mellitus Osteomyelitis due to type 2 diabetes mellitus Osteomyelitis of toe of right foot Stabilize and antibiotics by ID. Will change dressings prior to discharge and follow a week following discharge in clinic. Paronychia Pyelonephritis Risk factors are DM & constant glucosuria Sepsis affecting skin CSSSI right 5 th toe. ? Necrotizing skin infection Abscess with superimposed cellulitis. Needs OR debridement, possible toe amputation. Sepsis due to undetermined organism without resultant organ failure Tachycardia Type 1 diabetes mellitus Type 2 diabetes mellitus with diabetic chronic kidney disease Ulcer of left foot Urinary retention Urinary tract infection Wound infection Surgical History History of appendectomy History of cholecystectomy History of incision and drainage (01/01/18) Left foot, 12/28/17 and 01/01/18 History of partial hysterectomy History of tubal ligation Status post amputation of toe (05/10/18) Left fifth toe Status post right foot surgery Family History Mother Diabetes Father Diabetes Brother Diabetes Sister Diabetes Other Abdominal pain Cellulitis DKA (diabetic ketoacidoses) Hyperglycemia Nausea, vomiting and diarrhea Osteomyelitis Osteomyelitis due to type 2 diabetes mellitus Vomiting Social History marital status: occupational status: unemployed physical activity: walking alcohol intake frequency: does not drink substance use type: does not use MEDS/ALLERGIES Home Medications and Allergies Home Medications Medication Instructions Recorded Confirmed Type blood sugar diagnostic (OneTouch #20 each 05/21/18 12/16/21 History Verio test strips) blood-glucose meter (OneTouch #1 each 05/21/18 12/16/21 History Verio Flex meter) lancets (OneTouch UltraSoft #50 each 05/21/18 12/16/21 History Lancets) insulin glargine 100 unit/mL (3 5 unit (0.05 mL) SUBCUT QAM #15 ml 05/04/21 12/16/21 Rx mL) subcutaneous pen (Lantus Solostar U-100 Insulin) ergocalciferol (vitamin D2) 1,250 1,250 mcg PO QWEEK #8 cap 08/31/21 12/16/21 Rx mcg (50,000 unit) capsule amitriptyline 25 mg tablet 1 tab PO HS 11/04/21 12/16/21 History amlodipine 10 mg tablet 10 mg PO HS 11/04/21 12/16/21 History aspirin 81 mg chewable tablet 1 tab PO QDAY 11/04/21 12/16/21 History atorvastatin 80 mg tablet 1 tab PO HS 11/04/21 12/16/21 History levothyroxine 25 mcg tablet 1 tab PO QAM 11/04/21 12/16/21 History lisinopril 40 mg tablet 40 mg PO QAM 11/04/21 12/16/21 History pantoprazole 40 mg tablet,delayed 1 tab PO QAM 11/04/21 12/16/21 History release doxycycline hyclate 100 mg capsule 100 mg PO BID #20 cap 11/05/21 12/16/21 Rx clindamycin HCl 300 mg capsule 300 mg PO QID #40 cap 11/11/21 12/16/21 Rx hydromorphone 4 mg tablet 4 mg PO Q6H PRN #20 tab 11/12/21 12/16/21 Rx ciprofloxacin HCl 500 mg tablet 500 mg PO BID #40 tab 11/18/21 12/16/21 Rx hydrocodone 10 mg-acetaminophen 1 tab PO Q4H PRN #30 tab 11/29/21 12/16/21 Rx 325 mg tablet gabapentin 600 mg tablet See Rx Instructions PO QDAY #60 tab 01/25/22 Rx Allergies Allergy/AdvReac Type Severity Reaction Status Date / Time vancomycin Allergy Severe Anaphylaxis Verified 02/14/22 15:35 adhesive tape AdvReac Mild rash and Verified 02/14/22 15:35 allergy escitalopram [From Lexapro] AdvReac Mild Diarrhea Verified 02/14/22 15:35 fentanyl AdvReac Mild halucinations Verified 02/14/22 15:35 and confusion fluoxetine [From Prozac] AdvReac Mild Nausea Verified 02/14/22 15:35 ketorolac [From Toradol] AdvReac Mild Vomiting Verified 02/14/22 15:35 metformin AdvReac Mild Nausea Verified 02/14/22 15:35 methocarbamol AdvReac Mild Nausea Verified 02/14/22 15:35 metoclopramide [From Reglan] AdvReac Mild Shakiness Verified 02/14/22 15:35 morphine AdvReac Mild Headache Verified 02/14/22 15:35 NSAIDS (Non-Steroidal AdvReac Mild nausea/rash Verified 12/16/21 13:44 Anti-Inflamma Paroxetine [From Paxil] AdvReac Mild Nausea Verified 12/16/21 13:44 Penicillins AdvReac Mild Nausea Verified 12/16/21 13:44 promethazine [From Phenergan] AdvReac Mild Shakiness Verified 12/16/21 13:44 Sulfa (Sulfonamide AdvReac Mild Nausea Verified 12/16/21 13:44 Antibiotics) EXAM Constitutional Vitals: Temp Pulse Resp BP Pulse Ox 97.9 F 84 18 162/93 99 02/14/22 15:32 02/14/22 21:23 02/14/22 15:32 02/14/22 21:16 02/14/22 21:23 DATA Data Completed and Pending Labs: Labs from last 24 hours 02/14/22 02/14/22 02/14/22 19:55 19:53 19:53 WBC 9.7 RBC 3.58 L Hgb 10.5 L Hct 30.6 L POC Hct 29.0 L MCV 85.5 MCH 29.3 MCHC 34.3 RDW 12.9 Plt Count 128 L MPV 11.0 H Neut % (Auto) 60.6 Lymph % (Auto) 29.2 Gillespie % (Auto) 6.0 Eos % (Auto) 3.5 Baso % (Auto) 0.7 Lymph # (Auto) 2.84 Gillespie # (Auto) 0.58 Eos # (Auto) 0.34 Baso # (Auto) 0.07 Absolute Neutrophils 5.91 POC Sodium 131 L Sodium 128 L POC Potassium 4.7 Potassium 4.9 POC Chloride 99 Chloride 95 L Carbon Dioxide 18 L POC Total CO2 22.0 Anion Gap 15.0 POC BUN 42 H BUN 31 H Creatinine 5.9 H* POC Creatinine 7.4 H* GFR Calculation 8 Glucose 163 H POC Glucose 171 H Calcium 8.7 POC WB Ioniz Calcium 1.05 L Total Bilirubin 0.3 AST 25 ALT 18 Alkaline Phosphatase 98 Total Protein 6.9 Albumin 3.6 Globulin 3.3 Albumin/Globulin Ratio 1.1 Lipase 36 A/P Narrative A/P Narrative: Assessment: 46-year-old female with a history of hypertension, diabetes mellitus, prior CVA, ESRD on hemodialysis, chronic anemia of ESRD, hypothyroidism, GERD, status post bilateral BKA presented to the emergency department for about 24 hours of abdominal pain, nausea, vomiting coffee ground material, diarrhea with melanotic stools. The patient's hemoglobin was approximately at her baseline in the ED. Liver function test as well as lipase normal. #Diffuse abdominal pain of uncertain etiology #Nausea and coffee-ground emesis #Diarrhea with melena #ESRD on hemodialysis #Diabetes mellitus #Essential hypertension #Chronic metabolic acidosis due to ESRD #Chronic hyponatremia #History of CVA #Hypothyroidism #GERD #Bilateral BKA Plan -CT abdomen and pelvis with contrast. -Check lactic acid. -Monitor hemoglobin level. -Enteric pathogens panel. -Protonix IV twice daily. -Analgesics as needed. -Zofran as needed for nausea. -Correction Humalog SSIlow. -Home medication reconciliation, resume important meds -Nephrology consult tomorrow morning for ESRD management. -Consider general surgery consult to evaluate the patient's abdomen. -N.p.o. for now pending CT scan results. -CODE STATUS: full -Disposition: TBD Time Spent With Patient Time: Total time spent is greater than 50% in coordination of care (as documented) at patient's floor/unit and/or counseling patient:
[2022-02-14] MEDS ORDERED: SENNOSIDES 1 TABLET PO PRN (22:18)
[2022-02-14] MEDS ORDERED: ACETAMINOPHEN 160 MG/5 ML ORAL.SOL PO PRN (22:18)
[2022-02-14] MEDS ORDERED: LACTULOSE 20 GM/30 ML ORAL.SOL PO PRN (22:18)
[2022-02-14] MEDS ORDERED: DEXTROSE 31 GM ORAL.SUSP PO PRN (22:18)
[2022-02-14] MEDS ORDERED: DEXTROSE 50% 50 ML VIAL IV PRN (22:18)
[2022-02-14] MEDS ORDERED: IOPAMIDOL 100 ML BOTTLE IV ONE (22:22)
[2022-02-14] MEDS: HYDROmorphone 0.5 MG/0.5 ML SYRINGE IV PRN (22:47)
[2022-02-14] MEDS: 0.9 % SODIUM CHLORIDE 10 ML SYRINGE IV SCH (22:48)
[2022-02-14] MEDS ORDERED: HYDROmorphone 0.5 MG/0.5 ML SYRINGE ONE (22:54)
[2022-02-14] MEDS: ONDANSETRON 4 MG/2 ML VIAL IV PRN (23:46)
[2022-02-15] MEDS: HYDROmorphone 0.5 MG/0.5 ML SYRINGE IV PRN ×9 (01:02→23:13)
[2022-02-15] MEDS: 0.9 % SODIUM CHLORIDE 10 ML SYRINGE IV SCH ×4 (05:43→20:55)
[2022-02-15 06:19] LABS: Basophils # (Auto) 0.05 K/mcL (0.00-0.30); Basophils % (Auto) 0.7 % (0.0-2.0); Eosinophils # (Auto) 0.39 K/mcL (0.00-0.70); Eosinophils % (Auto) 5.3 % (0.0-7.0); Hematocrit 27.8 % (34.1-44.9); Hemoglobin 9.5 g/dL (11.2-15.7); Lymphocytes # (Auto) 2.57 K/mcL (1.50-4.80); Lymphocytes % (Auto) 34.7 % (15.5-49.0); Mean Cell Volume 88.8 fL (80.0-100.0); Mean Corpuscular HGB Conc 34.2 g/dL (31.0-36.0); Mean Platelet Volume 9.7 fL (7.4-10.4); Monocytes % (Auto) 5.4 % (1.0-12.0); Neutrophils % (Auto) 53.9 % (38.0-78.0); Platelet Count 163 K/mcL (140-440); RBC 3.13 M/mcL (3.59-5.38); Red Cell Distribution Width 13.1 % (11.5-14.5); WBC 7.4 K/mcL (4.5-11.0)
[2022-02-15 06:50] LABS: ALT/SGPT 15 U/L (<40); AST/SGOT 17 U/L (<32); Albumin 3.4 gm/dL (3.2-5.2); Albumin/Globulin Ratio 1.2 (1.0-2.3); Alkaline Phosphatase 82 U/L (39-117); Bilirubin,Direct < 0.2 mg/dL (0-0.3); Bilirubin,Total 0.3 mg/dL (0.1-1.0); Blood Urea Nitrogen 32 mg/dL (6-20); Calcium 8.2 mg/dL (8.6-10.4); Carbon Dioxide 17 mmol/L (22-30); Chloride 96 mmol/L (96-108); Globulin 2.8 gm/dL (2.2-3.7); Glomerular Filtration Rate 7; Glucose 113 mg/dL (70-105); Lactate Dehydrogenase 177 U/L (135-225); Phosphorous 6.2 mg/dL (2.5-4.5); Triglycerides 173 mg/dL (<150); Uric Acid 5.5 mg/dL (2.5-8.0)
[2022-02-15] MEDS: INSULIN LISPRO 1 UNIT/0.01 ML UNIT SQ SCH ×4 (06:53→20:55)
[2022-02-15] MEDS: PANTOPRAZOLE 40 MG VIAL IV SCH ×2 (07:02→16:57)
[2022-02-15] MEDS: LEVOTHYROXINE 25 MCG TABLET PO SCH (08:14)
--- NOTE | 2022-02-15 09:06 | Nephrology Consult Note ---
HPI Data of Consult Patient: known to practice within the last 3 years Consult date: 02/15/22 Requesting physician: Geoff Rose Primary Care Provider: BRIANDA Morse Consult Narrative Chief complaint: Coffee ground emesis Reason for consult: End stage renal disease on hemodialysis History of present illness: Jeanette Gonzalez is a 46-year-old female with end stage renal disease on hemodialysis, chronic anemia due to ESRD, hypertension, diabetes mellitus type 2 admitted on 02/14/22. She has history of hypertension, diabetes mellitus, prior CVA, hypothyroidism, GERD, status post bilateral BKA presented to ED for nausea, coffee ground emesis and melena. In the ED, she was hemodynamically stable. Nephrology consultation was requested for end stage renal disease. cc:: CC: Geoff Rose MD Constitutional Constitutional: Present weakness; Absent fever(s) EENT Nose, mouth and throat: Absent nasal discharge or sore throat Respiratory Respiratory: Absent cough or dyspnea Gastrointestinal Gastrointestinal: Present abdominal pain, coffee ground emesis, melena and nausea Genitourinary Genitourinary: Absent dysuria or hematuria Integumentary Integumentary: Absent rash or wounds Neurological Neurological: Absent confusion Psychiatric Psychiatric: Absent anxiety or panic attacks Allergic/Immunologic Allergic/Immunologic: Absent tongue swelling or uticaria PFSH PFSH All Active Problems (Updated 02/15/22 @ 09:02 by Dontrell Winters MD) GIB (gastrointestinal bleeding) (Acute) Abscess of skin or subcutaneous tissue (Acute) Post-operative pain (Acute) Hemodialysis catheter malfunction (Acute) Diabetic foot ulcer (Chronic) Diabetic peripheral neuropathy (Chronic) Elevated hemoglobin A1c (Chronic) director bioinformatics (current) use of insulin (Chronic) 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) CKD (chronic kidney disease) stage 2, GFR 60-89 ml/min (Chronic) Chronic back pain (Chronic) director bioinformatics prescription opiate use (Chronic) Lumbar back pain (Chronic) Ex-smoker (Chronic) DDD (degenerative disc disease), lumbosacral (Chronic) Benign essential hypertension (Chronic) Hyperlipidemia (Chronic) Hypothyroidism (Chronic) Noncompliance with medication regimen (Chronic) Hepatomegaly (Chronic) Genital herpes (Chronic) Depression, major, recurrent, moderate (Chronic) Sepsis due to undetermined organism without resultant organ failure (Chronic) Pyelonephritis (Chronic) Osteomyelitis of toe of right foot (Chronic) Abdominal pain (Chronic) Hyperglycemia (Chronic) Osteomyelitis (Chronic) Osteomyelitis due to type 2 diabetes mellitus (Chronic) Chest pain, non-cardiac (Chronic) Hyperglycemia without ketosis (Chronic) Osteomyelitis (Chronic) Nausea (Chronic) Flank pain (Chronic) Diabetic gastroparesis (Chronic) Paronychia (Chronic) Cellulitis, toe (Chronic) Cellulitis (Chronic) Gastroenteritis (Chronic) Essential hypertension (Chronic) History of kidney stones (Chronic) Citrobacter infection (Acute) Cellulitis of foot (Acute) Uncontrolled diabetes mellitus due to underlying condition with diabetic arthropathy (Chronic) Postoperative pain (Acute) Chest pain (Acute) Hyperglycemia (Acute) D-dimer, elevated (Acute) Type 2 diabetes mellitus with diabetic nephropathy, with long-term current use of insulin (Acute) Esophageal pain (Acute) Acute hyperglycemia (Acute) Nausea, vomiting and diarrhea (Acute) Abdominal pain (Acute) Acute urinary retention (Acute) Acute renal failure superimposed on chronic kidney disease (Acute) Urinary tract infection (Acute) Uncontrolled type 2 diabetes mellitus (Acute) Acute urinary retention (Acute) Acute urinary retention (Acute) Bladder infection (Acute) History of chronic kidney disease (Acute) Urinary retention (Chronic) Yeast dermatitis (Acute) Diarrhea (Acute) Phantom pain after amputation of lower extremity (Acute) Acute cerebrovascular accident (CVA) (Acute) Acute on chronic kidney failure (Acute) DKA (diabetic ketoacidosis) (Acute) CKD stage 5 due to type 2 diabetes mellitus (Chronic) Urinary retention with incomplete bladder emptying (Chronic) Paresthesia (Acute) Candiduria (Acute) Phantom limb pain (Acute) Vitamin D deficiency (Acute) Hemodialysis catheter infection (Acute) Acute lumbar back pain (Acute) ESRD (end stage renal disease) (Acute) Bruising (Acute) Acute CVA (cerebrovascular accident) (Acute) Vitamin A deficiency (Acute) Hyperparathyroidism due to ESRD on dialysis (Acute) S/P bilateral BKA (below knee amputation) (Acute) Post-operative pain (Acute) Acute pain of right lower extremity (Acute) Sore throat due to virus (Acute) COVID-19 in immunocompromised patient (Acute) Acute dyspnea (Acute) COVID-19 (Acute) ESRD (end stage renal disease) on dialysis (Chronic) Anemia (Acute) Abscess (Acute) Abscess of groin, left (Acute) Low back strain (Acute) Medical History Abdominal pain Acquired absence of left great toe Acute bilateral ankle pain Irrigation of foot performed. Coagulated blood with some necrotic tissue. Mild sedation with Fentanyl administered. Numbed area with 2% lidocaine pain 7cc local after consent and time-out. Partially closed with 3-0 nylon in horizontal mattress stitch. Patient to continue Doxycycline as her infectious disease physician has perscribed. Follow-up in Podiatry clinic on 09/25. ARF (acute renal failure) with tubular necrosis ATN with sepsis and post op orthopedic surgery. Acute HD for ~ 1 week Revolved with near normal GFR Benign essential hypertension Goal blood pressure is 130/80. She is on diltiazem 240 mg twice a day, lisinopril 10 mg a day, I have increased her doxazosin from 2 to 4 mg at bedtime Burn of third degree of left foot, subsequent encounter Cellulitis Cellulitis Cellulitis and abscess of foot S/P I/D of abxcess with surgical debridement about a week ago at [facility]. Plan: On going wound care and check non invasive vascular studies. TBI and Sensilase. Cellulitis, toe Chest pain, non-cardiac Chronic back pain Chronic leg pain Citrobacter infection Debris in bladder. Urine with high glucose => UTI vs colonization CKD (chronic kidney disease) stage 2, GFR 60-89 ml/min Coagulase-negative staphylococcal infection Contusion of foot with skin surface intact DDD (degenerative disc disease), lumbosacral Depression, major, recurrent, moderate Diabetes Diabetes mellitus with foot ulcer due to multiple causes Continue current wound care for right foot plantar ulcer and fungal infection between toes. Diabetic foot infection Diabetic foot ulcer Diabetic gastroparesis Diabetic peripheral neuropathy Diarrhea Elevated hemoglobin A1c Elevated liver enzymes Elevated sed rate Essential hypertension CCB and ACEi Optimize Rx for DM nephropathy and proteinuria Ex-smoker Flank pain Gangrene of toe Gastroenteritis Genital herpes Hepatomegaly History of kidney stones Currently asymptomatic Hyperglycemia Hyperglycemia due to type 1 diabetes mellitus Hyperglycemia due to type 2 diabetes mellitus Chronic malnutrition. Low pre albumin, improved 07/2017 Nutrition / Dietary consult and Diabetic Teaching. Hyperglycemia without ketosis Hyperlipidemia Hyperosmolar non-ketotic state in patient with type 2 diabetes mellitus Hyponatremia Hypothyroidism Laceration Leg pain, left FDC (current) use of insulin FDC prescription opiate use Lumbar back pain Nausea Nausea Noncompliance with medication regimen Osteomyelitis Osteomyelitis Osteomyelitis due to type 1 diabetes mellitus Osteomyelitis due to type 2 diabetes mellitus Osteomyelitis of toe of right foot Stabilize and antibiotics by ID. Will change dressings prior to discharge and follow a week following discharge in clinic. Paronychia Pyelonephritis Risk factors are DM & constant glucosuria Sepsis affecting skin CSSSI right 5 th toe. ? Necrotizing skin infection Abscess with superimposed cellulitis. Needs OR debridement, possible toe amputation. Sepsis due to undetermined organism without resultant organ failure Tachycardia Type 1 diabetes mellitus Type 2 diabetes mellitus with diabetic chronic kidney disease Ulcer of left foot Urinary retention Urinary tract infection Wound infection Surgical History History of appendectomy History of cholecystectomy History of incision and drainage (01/01/18) Left foot, 12/28/17 and 01/01/18 History of partial hysterectomy History of tubal ligation Status post amputation of toe (05/10/18) Left fifth toe Status post right foot surgery Family History Mother Diabetes Father Diabetes Brother Diabetes Sister Diabetes Other Abdominal pain Cellulitis DKA (diabetic ketoacidoses) Hyperglycemia Nausea, vomiting and diarrhea Osteomyelitis Osteomyelitis due to type 2 diabetes mellitus Vomiting Social History marital status: occupational status: unemployed physical activity: walking alcohol intake frequency: does not drink substance use type: does not use MEDS/ALLERGIES Home Medications and Allergies Home Medications Medication Instructions Recorded Confirmed Type blood sugar diagnostic (OneTouch #20 each 05/21/18 12/16/21 History Verio test strips) blood-glucose meter (OneTouch #1 each 05/21/18 12/16/21 History Verio Flex meter) lancets (OneTouch UltraSoft #50 each 05/21/18 12/16/21 History Lancets) insulin glargine 100 unit/mL (3 5 unit (0.05 mL) SUBCUT QAM #15 ml 05/04/21 02/14/22 Rx mL) subcutaneous pen (Lantus Solostar U-100 Insulin) ergocalciferol (vitamin D2) 1,250 1,250 mcg PO QWEEK #8 cap 08/31/21 02/14/22 Rx mcg (50,000 unit) capsule amitriptyline 25 mg tablet 1 tab PO HS 11/04/21 02/14/22 History amlodipine 10 mg tablet 10 mg PO HS 11/04/21 02/14/22 History aspirin 81 mg chewable tablet 1 tab PO QDAY 11/04/21 02/14/22 History atorvastatin 80 mg tablet 1 tab PO HS 11/04/21 02/14/22 History levothyroxine 25 mcg tablet 1 tab PO QAM 11/04/21 02/14/22 History lisinopril 40 mg tablet 40 mg PO QAM 11/04/21 02/14/22 History pantoprazole 40 mg tablet,delayed 1 tab PO QAM 11/04/21 02/14/22 History release gabapentin 600 mg tablet See Rx Instructions PO QDAY #60 tab 01/25/22 02/14/22 Rx Allergies Allergy/AdvReac Type Severity Reaction Status Date / Time vancomycin Allergy Severe Anaphylaxis Verified 02/14/22 15:35 adhesive tape AdvReac Mild rash and Verified 02/14/22 15:35 allergy escitalopram [From Lexapro] AdvReac Mild Diarrhea Verified 02/14/22 15:35 fentanyl AdvReac Mild halucinations Verified 02/14/22 15:35 and confusion fluoxetine [From Prozac] AdvReac Mild Nausea Verified 02/14/22 15:35 ketorolac [From Toradol] AdvReac Mild Vomiting Verified 02/14/22 15:35 metformin AdvReac Mild Nausea Verified 02/14/22 15:35 methocarbamol AdvReac Mild Nausea Verified 02/14/22 15:35 metoclopramide [From Reglan] AdvReac Mild Shakiness Verified 02/14/22 15:35 morphine AdvReac Mild Headache Verified 02/14/22 15:35 NSAIDS (Non-Steroidal AdvReac Mild nausea/rash Verified 12/16/21 13:44 Anti-Inflamma Paroxetine [From Paxil] AdvReac Mild Nausea Verified 12/16/21 13:44 Penicillins AdvReac Mild Nausea Verified 12/16/21 13:44 promethazine [From Phenergan] AdvReac Mild Shakiness Verified 12/16/21 13:44 Sulfa (Sulfonamide AdvReac Mild Nausea Verified 12/16/21 13:44 Antibiotics) Physical Examination Vital Signs Vital signs: Temp Pulse Resp BP Pulse Ox 97.2 F 78 8 L 151/84 94 02/15/22 08:01 02/15/22 08:34 02/15/22 08:34 02/15/22 08:01 02/15/22 08:34 General Appearance General appearance: well-developed and well-nourished EENT EENT: mucous membranes moist Respiratory Respiratory: clear Cardiovascular Cardiology: regular rate and regular rhythm Gastrointestinal Gastrointestinal: no tenderness Neurologic Neurologic: no focal deficit and alert and oriented x3 Psychiatric Psychiatric: mood/affect appropriate and cooperative Results Lab Results Result Diagrams: 02/15/22 05:28 02/15/22 05:28 Lab results: Most recent lab results Calcium 8.2 mg/dL (8.6-10.4) L 02/15/22 05:28 Phosphorus 6.2 mg/dL (2.5-4.5) H* 02/15/22 05:28 Magnesium 2.2 mg/dL (1.6-2.5) 02/15/22 05:28 A/P Assessment and plan (1) ESRD (end stage renal disease) on dialysis: Assessment and plan: Jeanette Gonzalez is a 46-year-old female with end stage renal disease on hemodialysis, chronic anemia due to ESRD, hypertension, diabetes mellitus type 2 admitted on 02/14/22. She has history of hypertension, diabetes mellitus, prior CVA, hypothyroidism, GERD, status post bilateral BKA presented to ED for nausea, coffee ground emesis and melena. In the ED, she was hemodynamically stable. Nephrology consultation was requested for end stage renal disease. End stage renal disease on hemodialysis. Chronic anemia due to ESRD. Hyponatremia. Metabolic acidosis. Recommendations/Plan: Hemodialysis today without heparin. The patient seen and evaluated during hemodialysis at 13:45. She is tolerating well. next hemodialysis on . Status: Chronic Time Spent With Patient Time: Total time spent is greater than 50% in coordination of care (as documented) at patient's floor/unit and/or counseling patient:
[2022-02-15] MEDS: GABAPENTIN 300 MG CAPSULE PO SCH (09:12)
[2022-02-15] MEDS: ONDANSETRON 4 MG/2 ML VIAL IV PRN ×4 (09:23→23:13)
--- NOTE | 2022-02-15 09:35 | Cat Scan Report ---
History: Nausea, vomiting, diarrhea abdominal pain with rebound tenderness, prior appendectomy, cholecystectomy and hysterectomy TECHNIQUE: Following injection of 70 cc of Isovue-370 contrast the patient was imaged during the portal venous phase. Sagittal and coronal reformats were created. The radiation exposure was limited using dose reduction technology. FINDINGS: The lung bases are clear. The heart size is normal. The liver is normal in size and homogeneous. There are clips in the gallbladder fossa. The internal extrahepatic bile ducts are dilated. Distal common bile duct measures up to 9 mm. There is no evidence of a stone within the duct. This tapers to normal caliber at the ampulla. The pancreas is normal in size and homogeneous. The spleen is normal in size. There is an irregularly shaped low-attenuation band of tissue extending obliquely through the spleen. There is no surrounding hemorrhage or edema. The overlying ribs appear normal with no recent or old rib fracture. The adrenals are normal. A nonobstructing 1 mm stone is present within a calyx in the lower third of the left kidney. There are few calcified plaques interlobar branches of the right kidney. Large amount calcified plaque is present in the splenic artery. Is also small amount of plaque in the distal aorta and common iliac arteries. The aorta is normal in caliber. There is radiopaque material in the cecum and ascending colon. The wall of the proximal large intestine appears somewhat distorted and mildly thickened. There is no surrounding inflammation or hemorrhage. Distal ileum is normal. There is no dilatation of the small intestine. The stomach is partially decompressed. Moderate amount of liquefied stool is seen in the large intestine. There is no evidence of diverticulitis. Neither ovary is seen. Patient has no ascites, abscess or mass in the abdomen or pelvis. Urinary bladder is partially distended. IMPRESSION: Nonspecific mild distortion with mild thickening of the wall of the cecum and proximal ascending colon. This could be due to inflammation or scar from prior surgery. The radiopaque material in the proximal large intestine may be previously ingested contrast or antacid. Dilated bile ducts. This could be due to a stricture at the ampulla or a reservoir effect following a prior cholecystectomy. Irregular band of tissue extending across the spleen which has the appearance of an old splenic laceration. Tiny nonobstructing left kidney stone Interpreted and Authenticated by: Asad Reyna 02/15/22
--- NOTE | 2022-02-15 09:58 | Internal Med Progress Note ---
SUBJECTIVE Subjective Patient information: Note initiated : 02/15/22 at 9:56 am Service Date, if different from initiated Date: [] Patient: Jeanette Gonzalez 46 y/o F admitted on 02/14/22 for N/V/D. Chief Complaint: [] Interval history: Ms. Gonzalez is a 46-year-old female with a history of hypertension, diabetes mellitus, prior CVA, ESRD on hemodialysis, chronic anemia of ESRD, hypothyroidism, GERD, status post bilateral BKA presented to the emergency department for about 24 hours of abdominal pain, nausea, vomiting coffee ground material, diarrhea with melanotic stools. In the ED, the patient's hemoglobin was approximately at her baseline. Vitals were stable, blood pressure somewhat high as the patient has not taken her blood pressure medications today. Hospital medicine was consulted for admission due to concern of a gastrointestinal bleed. 02/15 Patient continues to complain of abdominal pain, hemoglobin dropped from 10.5- 9.5. CT scan showed nonspecific mild thickening of the wall of the cecum and proximal ascending colon, dilated bile ducts, irregular band of tissue extending across the spleen with the appearance of an old splenic laceration, small nonobstructing left kidney stone. Discussed the patient with gastroenterology for consult. Nephrology consulted for hemodialysis. Physical exam Head: Atraumatic, normal inspection. Eyes: normal appearance, no scleral icterus. Neck: full ROM Respiratory: no respiratory distress. Cardiovascular: normal rate and rhythm, S1, S2. GI/Abdominal: Abdominal tenderness to palpation, soft, nondistended. Extremities: Bilateral lower extremity BKA. Neurological: CN II-XII intact, intact motor, intact sensation. Psychiatric: normal mood. Skin: warm, normal color Constitutional Vitals: Vital Signs Temp Pulse Resp BP Pulse Ox 97.2 F 78 8 L 151/84 94 02/15/22 08:01 02/15/22 08:34 02/15/22 08:34 02/15/22 08:01 02/15/22 08:34 Period Temp Pulse Resp BP Sys/Santiago Pulse Ox Last 24 Hr 97.2 F-97.9 F 72-86 7-18 138-176/72-100 93-100 Intake and Output 02/14/22 02/15/22 02/15/22 21:59 05:59 13:59 Intake Total 600 Balance 600 Weight 68 kg 62.051 kg Intake & Output: Intake & Output 02/14/22 02/15/22 02/15/22 21:59 05:59 13:59 Intake Total 600 Balance 600 Weight 68 kg 62.051 kg Intake: IV 600 Sodium Chloride 0.9% 500 ml @ 500 Wide Open IV .Q0M ONE Rx#: [id number] OBJ DATA Labs CBC & Chem 7: 02/15/22 05:28 02/15/22 05:28 Labs: Abnormal Lab Results 02/15/22 02/15/22 02/14/22 05:28 05:28 19:55 RBC 3.13 L Hgb 9.5 L Hct 27.8 L POC Hct 29.0 L Plt Count MPV POC Sodium 131 L Sodium 130 L Chloride Carbon Dioxide 17 L Anion Gap 17.0 H POC BUN 42 H BUN 32 H Creatinine 6.5 H* POC Creatinine 7.4 H* Glucose 113 H POC Glucose 171 H Calcium 8.2 L POC WB Ioniz Calcium 1.05 L Phosphorus 6.2 H* Triglycerides 173 H 02/14/22 02/14/22 19:53 19:53 RBC 3.58 L Hgb 10.5 L Hct 30.6 L POC Hct Plt Count 128 L MPV 11.0 H POC Sodium Sodium 128 L Chloride 95 L Carbon Dioxide 18 L Anion Gap POC BUN BUN 31 H Creatinine 5.9 H* POC Creatinine Glucose 163 H POC Glucose Calcium POC WB Ioniz Calcium Phosphorus Triglycerides Meds: Medications Acetaminophen (Acetaminophen 160 Mg/5 Ml Oral.Amalia) 650 mg PO Q6HP PRN; Protocol PRN Reason: Per Pain Protocol Hydrocodone Bitart/Acetaminophen (Hydrocodone/Apap 5/325mg Tablet) 1 tab PO Q4HP PRN; Protocol PRN Reason: Per Pain Protocol Amitriptyline HCl (Amitriptyline 25 Mg Tablet) 25 mg PO HS CHRISTINA Atorvastatin Calcium (Atorvastatin 40 Mg Tablet) 80 mg PO HS CHRISTINA Dextrose (Dextrose 50% 50 Ml Vial) 0 ml IV UD PRN PRN Reason: Per Sliding Scale Diagnostic Test (Pha) (Accu-Chek 1 Each Strip) 1 each FS ACHS CHRISTINA Last Admin: 02/15/22 06:53 Dose: 1 each Documented by: Gabapentin (Gabapentin 300 Mg Capsule) 600 mg PO QDAY CHRISTINA Last Admin: 02/15/22 09:12 Dose: 600 mg Documented by: Glucose (Dextrose 31 Gm Oral.Susp) 15 gm PO PRN PRN PRN Reason: Hypoglycemia Hydromorphone HCl (Hydromorphone 0.5 Mg/0.5 Ml Syringe) 0.5 mg IV Q2HP PRN; Protocol PRN Reason: Per Pain Protocol Last Admin: 02/15/22 09:23 Dose: 0.5 mg Documented by: Insulin Human Lispro (Insulin Lispro 1 Unit/0.01 Ml Unit) 0 unit SQ ACHS [facility]; Protocol Last Admin: 02/15/22 06:53 Dose: Not Given Documented by: Lactulose (Lactulose 20 Gm/30 Ml Oral.Amalia) 10 gm PO DAILYP PRN PRN Reason: Constipation Levothyroxine Sodium (Levothyroxine 25 Mcg Tablet) 25 mcg PO QAMAC [facility] Last Admin: 02/15/22 08:14 Dose: 25 mcg Documented by: Ondansetron HCl (Ondansetron 4 Mg/2 Ml Vial) 4 mg IV Q4HP PRN; Protocol PRN Reason: Nausea And Vomiting Last Admin: 02/15/22 09:23 Dose: 4 mg Documented by: Pantoprazole Sodium (Pantoprazole 40 Mg Vial) 40 mg IV BIDAC [facility] Last Admin: 02/15/22 07:02 Dose: 40 mg Documented by: Pneumococcal Polyvalent Vaccine (Pneumococcal 23-Mireya P-Sac Vac 0.5 Ml Syringe) 0.5 ml IM .ONCE ONE Stop: 02/15/22 14:01 Senna (Sennosides 1 Tablet) 2 tab PO HSP PRN PRN Reason: Constipation Sodium Chloride (0.9 % Sodium Chloride 10 Ml Syringe) 10 ml IV Q8 [facility] Last Admin: 02/15/22 07:04 Dose: 10 ml Documented by: A/P Narrative A/P Narrative: Assessment: 46-year-old female with a history of hypertension, diabetes mellitus, prior CVA, ESRD on hemodialysis, chronic anemia of ESRD, hypothyroidism, GERD, status post bilateral BKA presented to the emergency department for about 24 hours of abdominal pain, nausea, vomiting coffee ground material, diarrhea with melanotic stools. The patient's hemoglobin has trended down somewhat since admission. CT abdomen and pelvis with contrast was notable for nonspecific mild distortion with mild thickening of the wall of the cecum and proximal ascending colon, there were also dilated bile ducts however the patient has had a cholecystectomy, there was an irregular band of tissue extending across the spleen with the appearance of an old splenic laceration. Liver function test as well as lipase were normal. #Abdominal pain of uncertain etiology -CT abdomen pelvis showed nonspecific proximal colonic thickening. -Concern for possible GI bleeding. #Nausea and coffee-ground emesis #Diarrhea with melena #Acute on chronic anemia #ESRD on hemodialysis #Diabetes mellitus #Essential hypertension #Chronic metabolic acidosis due to ESRD #Chronic hyponatremia #History of CVA #Hypothyroidism #GERD #Bilateral BKA Plan -Protonix IV twice daily. -Monitor hemoglobin. -Analgesics as needed. -GI consult. -Zofran as needed for nausea. -Enteric pathogens panel. -C. difficile screen. -Correction Humalog SSIlow. -Resume home amitriptyline, atorvastatin, gabapentin, levothyroxine. -Holding home aspirin for now. -Nephrology consult for ESRD management. -N.p.o. for now pending GI consult. -CODE STATUS: full -Disposition: Home when stable. Time Spent With Patient Time: Total time spent is greater than 50% in coordination of care (as documented) at patient's floor/unit and/or counseling patient:
--- NOTE | 2022-02-15 12:44 | Internal Medicine Consult Note ---
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 She has a long history of chronic diarrhea up to 4 BMs daily with nocturnal stooling and fecal incontinence, which she treats with an OTC antidiarrheal and develops subsequent constipation. Yesterday, she developed sudden onset nausea and vomiting, so took pepto bismol. Shortly thereafter, she developed cramping LLQ abdominal pain with scybalous stool, followed by brown diarrhea, followed by coffee ground emesis and black stool, followed by brown diarrhea. She has not had a BM since admission, but c difficile has been ordered. CT of the abdomen and pelvis revealed mild thickening of the ascending colon and cecum. She denies any NSAID use. She is not on any chronic opioids. She denies any symptoms of biliary type pain despite CT showing mild biliary dilatation (CBD 9mm, extrahepatic biliary dilatation mentioned with normal liver enzymes and lipase). She reports chills yesterday but has been afebrile since her admission. She underwent colonoscopy in her 30s for unclear reasons. There is no family history of IBD. Incidental mention of old splenic laceration is noted on CT; patient does not recall any trauma. I reviewed extensive outside records detailing her I&D, multiple admissions dating back to 08/12, and poor pain coping/seeking behaviours. 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) CKD (chronic kidney disease) stage 2, GFR 60-89 ml/min (Chronic) Chronic back pain (Chronic) peoplesoft crm developer prescription opiate use (Chronic) Lumbar back pain (Chronic) Ex-smoker (Chronic) DDD (degenerative disc disease), lumbosacral (Chronic) Benign essential hypertension (Chronic) Hyperlipidemia (Chronic) Hypothyroidism (Chronic) Noncompliance with medication regimen (Chronic) Hepatomegaly (Chronic) Genital herpes (Chronic) Depression, major, recurrent, moderate (Chronic) Sepsis due to undetermined organism without resultant organ failure (Chronic) Pyelonephritis (Chronic) Osteomyelitis of toe of right foot (Chronic) Abdominal pain (Chronic) Hyperglycemia (Chronic) Osteomyelitis (Chronic) Osteomyelitis due to type 2 diabetes mellitus (Chronic) Chest pain, non-cardiac (Chronic) Hyperglycemia without ketosis (Chronic) Osteomyelitis (Chronic) Nausea (Chronic) Flank pain (Chronic) Diabetic gastroparesis (Chronic) Paronychia (Chronic) Cellulitis, toe (Chronic) Cellulitis (Chronic) Gastroenteritis (Chronic) Essential hypertension (Chronic) History of kidney stones (Chronic) Citrobacter infection (Acute) Cellulitis of foot (Acute) Uncontrolled diabetes mellitus due to underlying condition with diabetic arthropathy (Chronic) Postoperative pain (Acute) Chest pain (Acute) Hyperglycemia (Acute) D-dimer, elevated (Acute) Type 2 diabetes mellitus with diabetic nephropathy, with long-term current use of insulin (Acute) Esophageal pain (Acute) Acute hyperglycemia (Acute) Nausea, vomiting and diarrhea (Acute) Abdominal pain (Acute) Acute urinary retention (Acute) Acute renal failure superimposed on chronic kidney disease (Acute) Urinary tract infection (Acute) Uncontrolled type 2 diabetes mellitus (Acute) Acute urinary retention (Acute) Acute urinary retention (Acute) Bladder infection (Acute) History of chronic kidney disease (Acute) Urinary retention (Chronic) Yeast dermatitis (Acute) Diarrhea (Acute) Phantom pain after amputation of lower extremity (Acute) Acute cerebrovascular accident (CVA) (Acute) Acute on chronic kidney failure (Acute) DKA (diabetic ketoacidosis) (Acute) CKD stage 5 due to type 2 diabetes mellitus (Chronic) Urinary retention with incomplete bladder emptying (Chronic) Paresthesia (Acute) Candiduria (Acute) Phantom limb pain (Acute) Vitamin D deficiency (Acute) Hemodialysis catheter infection (Acute) Acute lumbar back pain (Acute) ESRD (end stage renal disease) (Acute) Bruising (Acute) Acute CVA (cerebrovascular accident) (Acute) Vitamin A deficiency (Acute) Hyperparathyroidism due to ESRD on dialysis (Acute) S/P bilateral BKA (below knee amputation) (Acute) Post-operative pain (Acute) Acute pain of right lower extremity (Acute) Sore throat due to virus (Acute) COVID-19 in immunocompromised patient (Acute) Acute dyspnea (Acute) COVID-19 (Acute) ESRD (end stage renal disease) on dialysis (Chronic) Anemia (Acute) Abscess (Acute) Abscess of groin, left (Acute) Low back strain (Acute) Medical History Abdominal pain Acquired absence of left great toe Acute bilateral ankle pain Irrigation of foot performed. Coagulated blood with some necrotic tissue. Mild sedation with Fentanyl administered. Numbed area with 2% lidocaine pain 7cc local after consent and time-out. Partially closed with 3-0 nylon in horizontal mattress stitch. Patient to continue Doxycycline as her infectious disease physician has perscribed. Follow-up in Podiatry clinic on Monday09/25/17. ARF (acute renal failure) with tubular necrosis ATN with sepsis and post op orthopedic surgery. Acute HD for ~ 1 week Revolved with near normal GFR Benign essential hypertension Goal blood pressure is 130/80. She is on diltiazem 240 mg twice a day, lisinopril 10 mg a day, I have increased her doxazosin from 2 to 4 mg at bedtime Burn of third degree of left foot, subsequent encounter Cellulitis Cellulitis Cellulitis and abscess of foot S/P I/D of abxcess with surgical debridement about a week ago at [facility]. Plan: On going wound care and check non invasive vascular studies. TBI and S ensilase. Cellulitis, toe Chest pain, non-cardiac Chronic back pain Chronic leg pain Citrobacter infection Debris in bladder. Urine with high glucose => UTI vs colonization CKD (chronic kidney disease) stage 2, GFR 60-89 ml/min Coagulase-negative staphylococcal infection Contusion of foot with skin surface intact DDD (degenerative disc disease), lumbosacral Depression, major, recurrent, moderate Diabetes Diabetes mellitus with foot ulcer due to multiple causes Continue current wound care for right foot plantar ulcer and fungal infection between toes. Diabetic foot infection Diabetic foot ulcer Diabetic gastroparesis Diabetic peripheral neuropathy Diarrhea Elevated hemoglobin A1c Elevated liver enzymes Elevated sed rate Essential hypertension CCB and ACEi Optimize Rx for DM nephropathy and proteinuria Ex-smoker Flank pain Gangrene of toe Gastroenteritis Genital herpes Hepatomegaly History of kidney stones Currently asymptomatic Hyperglycemia Hyperglycemia due to type 1 diabetes mellitus Hyperglycemia due to type 2 diabetes mellitus Chronic malnutrition. Low pre albumin, improved 07/2017 Nutrition / Dietary consult and Diabetic Teaching. Hyperglycemia without ketosis Hyperlipidemia Hyperosmolar non-ketotic state in patient with type 2 diabetes mellitus Hyponatremia Hypothyroidism Laceration Leg pain, left peoplesoft crm developer (current) use of insulin alf prescription opiate use Lumbar back pain Nausea Nausea Noncompliance with medication regimen Osteomyelitis Osteomyelitis Osteomyelitis due to type 1 diabetes mellitus Osteomyelitis due to type 2 diabetes mellitus Osteomyelitis of toe of right foot Stabilize and antibiotics by ID. Will change dressings prior to discharge and follow a week following discharge in clinic. Paronychia Pyelonephritis Risk factors are DM & constant glucosuria Sepsis affecting skin CSSSI right 5 th toe. ? Necrotizing skin infection Abscess with superimposed cellulitis. Needs OR debridement, possible toe amputation. Sepsis due to undetermined organism without resultant organ failure Tachycardia Type 1 diabetes mellitus Type 2 diabetes mellitus with diabetic chronic kidney disease Ulcer of left foot Urinary retention Urinary tract infection Wound infection Surgical History History of appendectomy History of cholecystectomy History of incision and drainage (01/01/18) Left foot, 12/28/17 and 01/01/18 History of partial hysterectomy History of tubal ligation Status post amputation of toe (05/10/18) Left fifth toe Status post right foot surgery Family History Mother Diabetes Father Diabetes Brother Diabetes Sister Diabetes Other Abdominal pain Cellulitis DKA (diabetic ketoacidoses) Hyperglycemia Nausea, vomiting and diarrhea Osteomyelitis Osteomyelitis due to type 2 diabetes mellitus Vomiting Social History marital status: occupational status: unemployed physical activity: walking alcohol intake frequency: does not drink substance use type: does not use MEDS/ALLERGIES Home Medications and Allergies Home Medications Medication Instructions Recorded Confirmed Type blood sugar diagnostic (OneTouch #20 each 05/21/18 12/16/21 History Verio test strips) blood-glucose meter (OneTouch #1 each 05/21/18 12/16/21 History Verio Flex meter) lancets (OneTouch UltraSoft #50 each 05/21/18 12/16/21 History Lancets) insulin glargine 100 unit/mL (3 5 unit (0.05 mL) SUBCUT QAM #15 ml 05/04/21 02/14/22 Rx mL) subcutaneous pen (Lantus Solostar U-100 Insulin) ergocalciferol (vitamin D2) 1,250 1,250 mcg PO QWEEK #8 cap 08/31/21 02/14/22 Rx mcg (50,000 unit) capsule amitriptyline 25 mg tablet 1 tab PO HS 11/04/21 02/14/22 History amlodipine 10 mg tablet 10 mg PO HS 11/04/21 02/14/22 History aspirin 81 mg chewable tablet 1 tab PO QDAY 11/04/21 02/14/22 History atorvastatin 80 mg tablet 1 tab PO HS 11/04/21 02/14/22 History levothyroxine 25 mcg tablet 1 tab PO QAM 11/04/21 02/14/22 History lisinopril 40 mg tablet 40 mg PO QAM 11/04/21 02/14/22 History pantoprazole 40 mg tablet,delayed 1 tab PO QAM 11/04/21 02/14/22 History release gabapentin 600 mg tablet See Rx Instructions PO QDAY #60 tab 01/25/22 02/14/22 Rx Allergies Allergy/AdvReac Type Severity Reaction Status Date / Time vancomycin Allergy Severe Anaphylaxis Verified 02/14/22 15:35 adhesive tape AdvReac Mild rash and Verified 02/14/22 15:35 allergy escitalopram [From Lexapro] AdvReac Mild Diarrhea Verified 02/14/22 15:35 fentanyl AdvReac Mild halucinations Verified 02/14/22 15:35 and confusion fluoxetine [From Prozac] AdvReac Mild Nausea Verified 02/14/22 15:35 ketorolac [From Toradol] AdvReac Mild Vomiting Verified 02/14/22 15:35 metformin AdvReac Mild Nausea Verified 02/14/22 15:35 methocarbamol AdvReac Mild Nausea Verified 02/14/22 15:35 metoclopramide [From Reglan] AdvReac Mild Shakiness Verified 02/14/22 15:35 morphine AdvReac Mild Headache Verified 02/14/22 15:35 NSAIDS (Non-Steroidal AdvReac Mild nausea/rash Verified 12/16/21 13:44 Anti-Inflamma Paroxetine [From Paxil] AdvReac Mild Nausea Verified 12/16/21 13:44 Penicillins AdvReac Mild Nausea Verified 12/16/21 13:44 promethazine [From Phenergan] AdvReac Mild Shakiness Verified 12/16/21 13:44 Sulfa (Sulfonamide AdvReac Mild Nausea Verified 12/16/21 13:44 Antibiotics) EXAM Constitutional Vitals: Temp Pulse Resp BP Pulse Ox 97.5 F 81 14 157/88 98 02/15/22 12:13 02/15/22 10:01 02/15/22 12:17 02/15/22 12:13 02/15/22 10:01 Exam: Physical exam is deferred at patient is currently dialyzing and this provider is on crutches and unable to approach the bed with dialysis equipment. DATA Data Completed and Pending Labs: Labs from last 24 hours 02/15/22 02/15/22 02/15/22 11:07 05:28 05:28 WBC 7.4 RBC 3.13 L Hgb Pending 9.5 L Hct 27.8 L POC Hct MCV 88.8 MCH 30.4 MCHC 34.2 RDW 13.1 Plt Count 163 MPV 9.7 Neut % (Auto) 53.9 Lymph % (Auto) 34.7 [place] % (Auto) 5.4 Eos % (Auto) 5.3 Baso % (Auto) 0.7 Lymph # (Auto) 2.57 [place] # (Auto) 0.40 Eos # (Auto) 0.39 Baso # (Auto) 0.05 Absolute Neutrophils 4.00 VBG Lactic Acid POC Sodium Sodium 130 L POC Potassium Potassium 4.6 POC Chloride Chloride 96 Carbon Dioxide 17 L POC Total CO2 Anion Gap 17.0 H POC BUN BUN 32 H Creatinine 6.5 H* POC Creatinine GFR Calculation 7 Glucose 113 H POC Glucose Uric Acid 5.5 Calcium 8.2 L POC WB Ioniz Calcium Phosphorus 6.2 H* Magnesium 2.2 Total Bilirubin 0.3 Direct Bilirubin < 0.2 GGT 22 AST 17 ALT 15 Alkaline Phosphatase 82 Lactate Dehydrogenase 177 Total Protein 6.2 Albumin 3.4 Globulin 2.8 Albumin/Globulin Ratio 1.2 Triglycerides 173 H Lipase 02/14/22 02/14/22 02/14/22 22:47 19:55 19:53 WBC RBC Hgb Hct POC Hct 29.0 L MCV MCH MCHC RDW Plt Count MPV Neut % (Auto) Lymph % (Auto) [place] % (Auto) Eos % (Auto) Baso % (Auto) Lymph # (Auto) [place] # (Auto) Eos # (Auto) Baso # (Auto) Absolute Neutrophils VBG Lactic Acid 0.5 POC Sodium 131 L Sodium 128 L POC Potassium 4.7 Potassium 4.9 POC Chloride 99 Chloride 95 L Carbon Dioxide 18 L POC Total CO2 22.0 Anion Gap 15.0 POC BUN 42 H BUN 31 H Creatinine 5.9 H* POC Creatinine 7.4 H* GFR Calculation 8 Glucose 163 H POC Glucose 171 H Uric Acid Calcium 8.7 POC WB Ioniz Calcium 1.05 L Phosphorus Magnesium Total Bilirubin 0.3 Direct Bilirubin GGT AST 25 ALT 18 Alkaline Phosphatase 98 Lactate Dehydrogenase Total Protein 6.9 Albumin 3.6 Globulin 3.3 Albumin/Globulin Ratio 1.1 Triglycerides Lipase 36 02/14/22 19:53 WBC 9.7 RBC 3.58 L Hgb 10.5 L Hct 30.6 L POC Hct MCV 85.5 MCH 29.3 MCHC 34.3 RDW 12.9 Plt Count 128 L MPV 11.0 H Neut % (Auto) 60.6 Lymph % (Auto) 29.2 [place] % (Auto) 6.0 Eos % (Auto) 3.5 Baso % (Auto) 0.7 Lymph # (Auto) 2.84 [place] # (Auto) 0.58 Eos # (Auto) 0.34 Baso # (Auto) 0.07 Absolute Neutrophils 5.91 VBG Lactic Acid POC Sodium Sodium POC Potassium Potassium POC Chloride Chloride Carbon Dioxide POC Total CO2 Anion Gap POC BUN BUN Creatinine POC Creatinine GFR Calculation Glucose POC Glucose Uric Acid Calcium POC WB Ioniz Calcium Phosphorus Magnesium Total Bilirubin Direct Bilirubin GGT AST ALT Alkaline Phosphatase Lactate Dehydrogenase Total Protein Albumin Globulin Albumin/Globulin Ratio Triglycerides Lipase A/P Assessment and plan (1) GIB (gastrointestinal bleeding): Assessment and plan: We will further evaluate her nausea, vomiting and hematemesis with EGD checking for Chuy's ulcer, PUD, Julia Daily tear and obtain small bowel biopsies to check for malabsorption in light of her chronic diarrhea. This will be done after she finishes hemodialysis. We will arrange for colonoscopy tomorrow as well with random colon biopsies. We will also check a celiac serology. Agree that c difficile should be check with a liquid BM in light of her recent clindamycin use. Status: Acute Time Spent With Patient Time: Total time spent is greater than 50% in coordination of care (as documented) at patient's floor/unit and/or counseling patient: Total time spent with greater than 50% in coordination of care (as documented) at patient's floor/unit and/or counseling patient:: 35 - 50 minutes
[2022-02-15] MEDS ORDERED: PROPOFOL 200 MG/20 ML VIAL IV SCH ×3 (13:00→15:45)
[2022-02-15] MEDS ORDERED: KETAMINE 50 MG/ML ML IV PRN ×3 (13:00→15:44)
[2022-02-15] MEDS ORDERED: MIDAZOLAM 2 MG/2 ML VIAL IV SCH ×3 (13:00→15:45)
[2022-02-15] MEDS ORDERED: PNEUMOCOCCAL 23-VAL P-SAC VAC 0.5 ML SYRINGE IM ONE (14:00)
[2022-02-15] MEDS: ATORVASTATIN 40 MG TABLET PO SCH ×2 (19:24→19:46)
[2022-02-15] MEDS: AMITRIPTYLINE 25 MG TABLET PO SCH (19:24)
[2022-02-15] MEDS ORDERED: PEG 3350/NA SULF,BICARB,CL/KCL 4,000 ML ORAL.SOL PO ONE (20:00)
[2022-02-16] MEDS: HYDROmorphone 0.5 MG/0.5 ML SYRINGE IV PRN ×9 (01:01→21:11)
[2022-02-16] MEDS: ONDANSETRON 4 MG/2 ML VIAL IV PRN ×5 (03:09→19:14)
[2022-02-16] MEDS: 0.9 % SODIUM CHLORIDE 10 ML SYRINGE IV SCH ×3 (05:05→21:21)
[2022-02-16 07:05] LABS: ALT/SGPT 16 U/L (<40); AST/SGOT 22 U/L (<32); Albumin 3.9 gm/dL (3.2-5.2); Albumin/Globulin Ratio 1.1 (1.0-2.3); Alkaline Phosphatase 89 U/L (39-117); Bilirubin,Direct < 0.2 mg/dL (0-0.3); Bilirubin,Total 0.3 mg/dL (0.1-1.0); Blood Urea Nitrogen 21 mg/dL (6-20); Calcium 8.5 mg/dL (8.6-10.4); Carbon Dioxide 23 mmol/L (22-30); Chloride 92 mmol/L (96-108); Globulin 3.5 gm/dL (2.2-3.7); Glomerular Filtration Rate 12; Glucose 56 mg/dL (70-105); Lactate Dehydrogenase 226 U/L (135-225); Phosphorous 4.5 mg/dL (2.5-4.5); Triglycerides 261 mg/dL (<150); Uric Acid 3.3 mg/dL (2.5-8.0)
[2022-02-16] MEDS: LEVOTHYROXINE 25 MCG TABLET PO SCH (07:34)
[2022-02-16] MEDS: PANTOPRAZOLE 40 MG VIAL IV SCH ×2 (07:34→16:54)
[2022-02-16] MEDS: INSULIN LISPRO 1 UNIT/0.01 ML UNIT SQ SCH ×4 (07:35→21:02)
--- NOTE | 2022-02-16 07:48 | Nephrology Progress Note ---
SUBJECTIVE Subjective Patient information: Note initiated : 02/16/22 at 7:46 am Patient: Jeanette Gonzalez a 46 y/o F admitted on 02/14/22 for N/V/D. Chief Complaint: Coffee ground emesis Pertinent ROS: Feels better Weakness Constitutional Vitals: Vital Signs Temp Pulse Resp BP Pulse Ox 97 F 87 13 157/90 95 02/16/22 03:31 02/16/22 06:20 02/16/22 06:20 02/16/22 06:01 02/16/22 06:20 Period Temp Pulse Resp BP Sys/Santiago Pulse Ox Last 24 Hr 96.9 F-98.0 F 74-93 5-20 96-157/58-94 93-100 Intake and Output 02/15/22 02/16/22 02/16/22 21:59 05:59 13:59 Intake Total 4000 Output Total 2600 5000 Balance -2600 -1000 Weight 129 lb 8 oz Intake & Output: Intake & Output 02/15/22 02/16/22 02/16/22 21:59 05:59 13:59 Intake Total 4000 Output Total 2600 5000 Balance -2600 -1000 Weight 129 lb 8 oz Intake: Oral 4000 Output: Stool 5000 Hemodialysis UF 2600 Other: Stool Size Copious Stool Color Brown Green Black Stool Consistency Liquid # Voids 1 General appearance: cooperative and no acute distress Head Head exam: Present normal inspection Eye Eye exam: Present normal appearance ENT ENT exam: Present mucous membranes moist Respiratory Respiratory exam: Absent respiratory distress Cardiovascular Cardiovascular exam: Present normal rate and rhythm GI/Abdominal GI/Abdominal exam: Present soft; Absent tenderness Extremities Exam Extremities exam: Absent joint swelling or pedal edema Neurological Exam Neurological exam: Present alert and oriented X3 Psychiatric Psychiatric exam: Present normal affect and normal mood Skin Skin exam: Present warm; Absent rash A/P Assessment and plan (1) ESRD (end stage renal disease) on dialysis: Assessment and plan: Jeanette Gonzalez is a 46-year-old female with end stage renal disease on hemodialysis, chronic anemia due to ESRD, hypertension, diabetes mellitus type 2 admitted on 02/14/22. She has history of hypertension, diabetes mellitus, prior CVA, hypothyroidism, GERD, status post bilateral BKA presented to ED for nausea, coffee ground emesis and melena. In the ED, she was hemodynamically stable. Nephrology consultation was requested for end stage renal disease. End stage renal disease on hemodialysis. Chronic anemia due to ESRD. Hyponatremia, resolved. Metabolic acidosis, resolved. Acute gastrointestinal bleeding. Recommendations/Plan: Hemodialysis tomorrow without heparin. Status: Chronic Time Spent With Patient Time: Total time spent is greater than 50% in coordination of care (as documented) at patient's floor/unit and/or counseling patient:
[2022-02-16] MEDS ORDERED: KETAMINE 50 MG/ML ML IV PRN (08:17)
[2022-02-16] MEDS ORDERED: PROPOFOL 200 MG/20 ML VIAL IV SCH (08:30)
[2022-02-16] MEDS ORDERED: MIDAZOLAM 2 MG/2 ML VIAL IV SCH (08:30)
--- NOTE | 2022-02-16 10:12 | EGD Procedure Note ---
EGD Procedure Notes Procedure Information Patient information: Note initiated : 02/16/22 at 10:11 am Service Date: 02/15/22 Patient: Jeanette Gonzalez 46 y/o F admitted on 02/14/22 for N/V/D. Pre-op diagnosis general: GI bleed. Post-Op Diagnosis general: Gastritis. Query celiac. Procedure: EGD with Bx Procedure Narrative: The procedure, alternatives and risks were discussed with the patient and the patient's questions were answered. With endoscopist-administered intravenous sedation, the Olympus video endoscope was introduced into the esophagus. The esophagus, stomach, and duodenum were examined sequentially. There is no esophagitis nor hiatal hernia. Gastritis was seen along the greater curvature; this was biospied. The gastric mucosa, antrum, pyloric ring and duode num were otherwise normal. Antral biopsy was taken for DEBBIE test. Small bowel biopsies obtained to check for malabsorption. The scope was withdrawn. Assessment: Gastritis. Query celiac.
[2022-02-16] MEDS: GABAPENTIN 300 MG CAPSULE PO SCH ×2 (11:03→21:20)
[2022-02-16] MEDS: HYDROcodone/APAP 5/325MG TABLET PO PRN ×2 (11:08→21:43)
[2022-02-16] MEDS ORDERED: MIDAZOLAM 2 MG/2 ML VIAL ONE (11:39)
[2022-02-16] MEDS ORDERED: PROPOFOL 200 MG/20 ML VIAL IV ONE (11:39)
[2022-02-16] MEDS ORDERED: HYDROmorphone 1 MG/ML SYRINGE IV ONE (12:19)
[2022-02-16] MEDS ORDERED: HYDROmorphone 1 MG/ML SYRINGE ONE (12:30)
[2022-02-16] MEDS ORDERED: AZITHROMYCIN 250 MG TABLET PO SCH (13:00)
--- NOTE | 2022-02-16 14:27 | Internal Med Progress Note ---
SUBJECTIVE Subjective Patient information: Note initiated : 02/16/22 at 2:17 pm Service Date, if different from initiated Date: [] Patient: Jeanette Gonzalez 46 y/o F admitted on 02/14/22 for N/V/D. Chief Complaint: [] Interval history: Ms. Gonzalez is a 46-year-old female with a history of hypertension, diabetes mellitus, prior CVA, ESRD on hemodialysis, chronic anemia of ESRD, hypothyroidism, GERD, status post bilateral BKA presented to the emergency department for about 24 hours of abdominal pain, nausea, vomiting coffee ground material, diarrhea with melanotic stools. In the ED, the patient's hemoglobin was approximately at her baseline. Vitals were stable, blood pressure somewhat high as the patient has not taken her blood pressure medications today. Hospital medicine was consulted for admission due to concern of a gastrointestinal bleed. 02/15 Patient continues to complain of abdominal pain, hemoglobin dropped from 10.5- 9.5. CT scan showed nonspecific mild thickening of the wall of the cecum and proximal ascending colon, dilated bile ducts, irregular band of tissue extending across the spleen with the appearance of an old splenic laceration, small nonobstructing left kidney stone. Discussed the patient with gastroenterology for consult. Nephrology consulted for hemodialysis. 02/16. EGD/colonoscopy completed. Gastritis noted. On PPI. Stool consistent with Campylobacter. Start azithromycin. Likely discharge 24 hours after overnight monitoring. Hemodialysis in a.m. Complaining of pain and seeking Dilaudid pushes. Constitutional Vitals: Vital Signs Temp Pulse Resp BP Pulse Ox 98.5 F 88 16 139/82 98 02/16/22 12:16 02/16/22 12:13 02/16/22 12:13 02/16/22 13:16 02/16/22 12:13 Period Temp Pulse Resp BP Sys/Santiago Pulse Ox Last 24 Hr 96.9 F-98.5 F 74-93 1-20 96-166/58-127 92-100 Intake and Output 02/16/22 02/16/22 02/16/22 05:59 13:59 21:59 Intake Total 4000 120 Output Total 5000 Balance -1000 120 Alert oriented Nonlabored breathing Anxious and tearful Bilateral BKA Intake & Output: Intake & Output 02/16/22 02/16/22 02/16/22 05:59 13:59 21:59 Intake Total 4000 120 Output Total 5000 Balance -1000 120 Intake: Oral 4000 120 Output: Stool 5000 Other: Stool Size Copious Stool Color Brown Green Black Stool Consistency Liquid # Voids 1 OBJ DATA Labs CBC & Chem 7: 02/15/22 16:54 02/16/22 05:33 Labs: Abnormal Lab Results 02/16/22 02/15/22 02/15/22 05:33 16:54 11:07 RBC Hgb 10.8 L 10.5 L Hct POC Hct Plt Count MPV POC Sodium Sodium Chloride 92 L Carbon Dioxide Anion Gap 19.0 H POC BUN BUN 21 H Creatinine 4.3 H POC Creatinine Glucose 56 L POC Glucose Calcium 8.5 L POC WB Ioniz Calcium Phosphorus Lactate Dehydrogenase 226 H Triglycerides 261 H 02/15/22 02/15/22 02/14/22 05:28 05:28 19:55 RBC 3.13 L Hgb 9.5 L Hct 27.8 L POC Hct 29.0 L Plt Count MPV POC Sodium 131 L Sodium 130 L Chloride Carbon Dioxide 17 L Anion Gap 17.0 H POC BUN 42 H BUN 32 H Creatinine 6.5 H* POC Creatinine 7.4 H* Glucose 113 H POC Glucose 171 H Calcium 8.2 L POC WB Ioniz Calcium 1.05 L Phosphorus 6.2 H* Lactate Dehydrogenase Triglycerides 173 H 02/14/22 02/14/22 19:53 19:53 RBC 3.58 L Hgb 10.5 L Hct 30.6 L POC Hct Plt Count 128 L MPV 11.0 H POC Sodium Sodium 128 L Chloride 95 L Carbon Dioxide 18 L Anion Gap POC BUN BUN 31 H Creatinine 5.9 H* POC Creatinine Glucose 163 H POC Glucose Calcium POC WB Ioniz Calcium Phosphorus Lactate Dehydrogenase Triglycerides Meds: Medications Acetaminophen (Acetaminophen 160 Mg/5 Ml Oral.Amalia) 650 mg PO Q6HP PRN; Protocol PRN Reason: Per Pain Protocol Hydrocodone Bitart/Acetaminophen (Hydrocodone/Apap 5/325mg Tablet) 1 tab PO Q4HP PRN; Protocol PRN Reason: Per Pain Protocol Last Admin: 02/16/22 11:08 Dose: 1 tab Documented by: Amitriptyline HCl (Amitriptyline 25 Mg Tablet) 25 mg PO [facility] Last Admin: 02/15/22 19:24 Dose: 25 mg Documented by: Atorvastatin Calcium (Atorvastatin 40 Mg Tablet) 80 mg PO [facility] Last Admin: 02/15/22 19:46 Dose: Not Given Documented by: Azithromycin (Azithromycin 250 Mg Tablet) 500 mg PO DAILY [facility]; Protocol Stop: 02/18/22 09:01 Azithromycin (Azithromycin 250 Mg Tablet) 500 mg PO 1300 [facility] Stop: 02/16/22 19:00 Last Admin: 02/16/22 13:04 Dose: 500 mg Documented by: Dextrose (Dextrose 50% 50 Ml Vial) 0 ml IV UD PRN PRN Reason: Per Sliding Scale Diagnostic Test (Pha) (Accu-Chek 1 Each Strip) 1 each FS [facility] Last Admin: 02/16/22 12:32 Dose: 1 each Documented by: Gabapentin (Gabapentin 300 Mg Capsule) 600 mg PO QDAY [facility] Last Admin: 02/16/22 11:03 Dose: Not Given Documented by: Glucose (Dextrose 31 Gm Oral.Susp) 15 gm PO PRN PRN PRN Reason: Hypoglycemia Hydromorphone HCl (Hydromorphone 0.5 Mg/0.5 Ml Syringe) 0.5 mg IV Q2HP PRN; Protocol PRN Reason: Per Pain Protocol Last Admin: 02/16/22 10:51 Dose: 0.5 mg Documented by: Insulin Human Lispro (Insulin Lispro 1 Unit/0.01 Ml Unit) 0 unit SQ [facility]; Protocol Last Admin: 02/16/22 12:32 Dose: Not Given Documented by: Ketamine HCl (Ketamine 50 Mg/Ml Ml) 50 mg IV ONCE PRN PRN Reason: Sedation Stop: 02/16/22 16:17 Lactulose (Lactulose 20 Gm/30 Ml Oral.Amalia) 10 gm PO DAILYP PRN PRN Reason: Constipation Levothyroxine S[facility] ([facility] 25 Mcg Tablet) [facility] Admin: 02/16/22 07:34 Dose: 25 mcg Documented by: Midazolam HCl (Midazolam 2 Mg/2 Ml Vial) 0 mg IV ONCE [facility] Stop: 02/16/22 16:17 Last Admin: 02/16/22 11:43 Dose: 2 mg Documented by: Ondansetron HCl (Ondansetron 4 Mg/2 Ml Vial) 4 mg IV Q4HP PRN; Protocol PRN Reason: Nausea And Vomiting Last Admin: 02/16/22 11:08 Dose: 4 mg Documented by: Pantoprazole Sodium (Pantoprazole 40 Mg Vial) 40 mg IV BIDAC [facility] Last Admin: 02/16/22 07:34 Dose: 40 mg Documented by: Propofol (Propofol 200 Mg/20 Ml Vial) 0 mg IV UD [facility] Stop: 02/16/22 16:17 Last Admin: 02/16/22 11:43 Dose: 100 mg Documented by: Senna (Sennosides 1 Tablet) 2 tab PO HSP PRN PRN Reason: Constipation Sodium Chloride (0.9 % Sodium Chloride 10 Ml Syringe) 10 ml IV Q8 [facility] Last Admin: 02/16/22 13:04 Dose: 10 ml Documented by: A/P Narrative A/P Narrative: A/P Narrative: Assessment: 46-year-old female with a history of hypertension, diabetes mellitus, prior CVA, ESRD on hemodialysis, chronic anemia of ESRD, hypoth yroidism, GERD, status post bilateral BKA presented to the emergency department for about 24 hours of abdominal pain, nausea, vomiting coffee ground material, diarrhea with melanotic stools. The patient's hemoglobin has trended down somewhat since admission. CT abdomen and pelvis with contrast was notable for nonspecific mild distortion with mild thickening of the wall of the cecum and proximal ascending colon, there were also dilated bile ducts however the patient has had a cholecystectomy, there was an irregular band of tissue extending across the spleen with the appearance of an old splenic laceration. Liver function test as well as lipase were normal. * Abdominal pain, Clinically improved etiology unclear. Negative imaging. Status post EGD consistent with gastritis * Acute gastroenteritis secondary to Campylobacter, start azithromycin * Blood loss anemia status post upper endoscopy/colonoscopy. Hemoglobin stable. * Nausea vomiting medical improved on antibiotics * ESRD on HD management per nephrology * DM type II CC diet/basal prandial insulin * Hypertension continue amlodipine/NAI inhibitor * Hypothyroidism contraction * History of CVA on aspirin/statin * Neuropathy on gabapentin/amitriptyline * Chronic pain requesting Dilaudid IV * Bilateral BKA * Full code Plan * Twice daily Protonix * Discharge in a.m. to dialysis if no overnight events * Pre-existing medical condition management home medications * Azithromycin for Campylobacter * Basal prandial insulin/CC diet * HD per nephrology Time Spent With Patient Time: Total time spent is greater than 50% in coordination of care (as documented) at patient's floor/unit and/or counseling patient: Total time spent with greater than 50% in coordination of care (as documented) at patient's floor/unit and/or counseling patient:: 25 - 35 minutes
[2022-02-16] MEDS: AMITRIPTYLINE 25 MG TABLET PO SCH (21:21)
[2022-02-16] MEDS: ATORVASTATIN 40 MG TABLET PO SCH (21:21)
[2022-02-17] MEDS: 0.9 % SODIUM CHLORIDE 10 ML SYRINGE IV SCH (05:54)
[2022-02-17 07:13] LABS: ALT/SGPT 10 U/L (<40); AST/SGOT 18 U/L (<32); Albumin 3.1 gm/dL (3.2-5.2); Alkaline Phosphatase 73 U/L (39-117); Bilirubin,Direct < 0.2 mg/dL (0-0.3); Bilirubin,Total 0.3 mg/dL (0.1-1.0); Blood Urea Nitrogen 28 mg/dL (6-20); Carbon Dioxide 21 mmol/L (22-30); Chloride 87 mmol/L (96-108); Globulin 3.2 gm/dL (2.2-3.7); Glomerular Filtration Rate 8; Glucose 94 mg/dL (70-105); Lactate Dehydrogenase 195 U/L (135-225); Phosphorous 5.6 mg/dL (2.5-4.5); Triglycerides 205 mg/dL (<150); Uric Acid 4.2 mg/dL (2.5-8.0)
[2022-02-17] MEDS: INSULIN LISPRO 1 UNIT/0.01 ML UNIT SQ SCH (07:50)
[2022-02-17] MEDS: HYDROmorphone 0.5 MG/0.5 ML SYRINGE IV PRN ×2 (08:01→10:04)
[2022-02-17] MEDS: PANTOPRAZOLE 40 MG VIAL IV SCH (08:02)
[2022-02-17] MEDS: LEVOTHYROXINE 25 MCG TABLET PO SCH (08:15)
[2022-02-17] MEDS ORDERED: AZITHROMYCIN 250 MG TABLET PO SCH (09:00)
--- NOTE | 2022-02-17 09:24 | Nephrology Progress Note ---
SUBJECTIVE Subjective Patient information: Note initiated : 02/17/22 at 9:21 am Service Date, if different from initiated Date: [] Patient: Jeanette Gonzalez 46 y/o F admitted on 02/14/22 for N/V/D. Chief Complaint: [Belly pain] Principal diagnosis: ESRD Interval history: Known drug seeking behavior Had coffee ground emesis with no drop in HgB Was running on no heparin HD as an outpatient due to recent eye surgery and thigh hematoma prior to that. I've recommended NO NARCOTICS except as presecribed by PCP I supply Gabapentin 600 mg po qHS and 1 po prn for total of 60 doses per month THATS IT. CT ABD 01/2022: Nonspecific mild distortion with mild thickening of the wall of the cecum and proximal ascending colon. This could be due to inflammation or scar from prior surgery. The radiopaque material in the proximal large intestine may be previously ingested contrast or antacid. Dilated bile ducts. This could be due to a stricture at the ampulla or a reservoir effect following a prior cholecystectomy. Irregular band of tissue extending across the spleen which has the appearance of an old splenic laceration. Tiny nonobstructing left kidney stone Interpreted and Authenticated by: Asad Reyna 02/15/22 HgB Pre-op diagnosis general: GI bleed. Post-Op Diagnosis general: Gastritis. Query celiac. Procedure: EGD with Bx Procedure Narrative: The procedure, alternatives and risks were discussed with the patient and the patient's questions were answered. With endoscopist-administered intravenous sedation, the Olympus video endoscope was introduced into the esophagus. The esophagus, stomach, and duodenum were examined sequentially. There is no esophagitis nor hiatal hernia. Gastritis was seen along the greater curvature; this was biospied. The gastric mucosa, antrum, pyloric ring and duodenum were otherwise normal. Antral biopsy was taken for DEBBIE test. Small bowel biopsies obtained to check for malabsorption. The scope was withdrawn. Pertinent ROS: Belly pain Additional PMFSH (Level 3 Only): N/A Constitutional Vitals: Vital Signs Temp Pulse Resp BP Pulse Ox 36.3 C 79 14 160/86 95 02/17/22 08:01 02/17/22 06:01 02/17/22 06:01 02/17/22 08:01 02/17/22 06:01 Period Temp Pulse Resp BP Sys/Santiago Pulse Ox Last 24 Hr 36.0 C-36.9 C 74-88 1-20 114-166/71-127 92-100 Intake and Output 02/16/22 02/17/22 02/17/22 21:59 05:59 13:59 Intake Total 600 100 Output Total 0 Balance 600 100 Weight 60.917 kg Intake & Output: Intake & Output 02/16/22 02/17/22 02/17/22 21:59 05:59 13:59 Intake Total 600 100 Output Total 0 Balance 600 100 Weight 60.917 kg Intake: Oral 600 100 Output: Void Amount 0 Other: Meal Dinner Percent of Meal Consumed 100% General appearance: mild distress Exam: Tearful and with ABD pain Head Head exam: Present normal inspection Eye Eye exam: Present EOMI ENT ENT exam: Present mucous membranes moist Neck Neck exam: Absent meningismus Respiratory Respiratory exam: Present CTAB Cardiovascular Cardiovascular exam: Present normal rate and rhythm; Absent rubs GI/Abdominal GI/Abdominal exam: Present diminished bowel sounds Extremities Exam Additional comments: Bilateral BKA Neurological Exam Additional comments: Nonfocal A/P Assessment and plan (1) ESRD (end stage renal disease) on dialysis: Assessment and plan: HD Q TTS Status: Chronic Comment: D/C today for home HD (2) Essential hypertension: Status: Chronic Comment: CCB and ACEi Optimize Rx for DM nephropathy and proteinuria (3) Phantom limb pain: Status: Acute Comment: Neurontin 600 mg po qHS and 600 mg po x1 dose qD PRN Only (4) Anemia in ESRD (end-stage renal disease): Status: Acute Comment: No heparin with HD GORGE as indicated Iron as needed. HgB stable Time Spent With Patient Time: Total time spent is greater than 50% in coordination of care (as documented) at patient's floor/unit and/or counseling patient: Total time spent with greater than 50% in coordination of care (as documented) at patient's floor/unit and/or counseling patient:: 15 - 24 minutes
[2022-02-17] MEDS: ONDANSETRON 4 MG/2 ML VIAL IV PRN (09:40)
[2022-02-17] MEDS: GABAPENTIN 300 MG CAPSULE PO SCH (09:52)
--- NOTE | 2022-02-17 10:49 | Discharge Summary ---
Discharge Provider Provider Patient information: Note initiated : 02/17/22 at 10:44 am Service Date, if different from initiated Date: [] Patient: Jeanette Gonzalez 46 y/o F admitted on 02/14/22 for N/V/D. Chief Complaint: [] Date of admission: 02/14/22 22:11 Discharge date: 02/17/22 Primary care physician: BRIANDA Morse Consults: 02/14/22 Consult to Physician [CONS] Stat Comment: GI Bleed, dialysis pt. E3 Consulting Provider: Geoff Rose Reason For Exam: Physician to Consult 02/15/22 08:28 Consult to Physician [CONS] Routine Comment: Consulting Provider: Dontrell Winters Reason For Exam: Physician to Consult 02/15/22 08:29 Consult to Physician [CONS] Routine Comment: Consulting Provider: Shlomo Louis Reason For Exam: Physician to Consult Discharge Meds Discharge Medications Home Medications blood sugar diagnostic (OneTouch Verio test strips) #20 each 05/21/18 [History Confirmed 12/16/21 Last Taken 01/29/19 18:00] blood-glucose meter (OneTouch Verio Flex meter) #1 each 05/21/18 [History Confirmed 12/16/21 Last Taken 01/29/19 18:00] lancets (OneTouch UltraSoft Lancets) #50 each 05/21/18 [History Confirmed 12/16/21 Last Taken 01/29/19 18:00] insulin glargine 100 unit/mL (3 mL) subcutaneous pen (Lantus Solostar U-100 Insulin) 5 unit (0.05 mL) SUBCUT QAM #15 ml 05/04/21 [Rx Confirmed 02/14/22 Last Taken 02/13/22] ergocalciferol (vitamin D2) 1,250 mcg (50,000 unit) capsule 1,250 mcg PO QWEEK #8 cap 08/31/21 [Rx Confirmed 02/14/22 Last Taken 02/13/22] amitriptyline 25 mg tablet 1 tab PO HS 11/04/21 [History Confirmed 02/14/22 Last Taken 02/13/22] amlodipine 10 mg tablet 10 mg PO HS 11/04/21 [History Confirmed 02/14/22 Last Taken 02/13/22] aspirin 81 mg chewable tablet 1 tab PO QDAY 11/04/21 [History Confirmed 02/14/22 Last Taken 02/13/22] atorvastatin 80 mg tablet 1 tab PO HS 11/04/21 [History Confirmed 02/14/22 Last Taken 02/13/22] levothyroxine 25 mcg tablet 1 tab PO QAM 11/04/21 [History Confirmed 02/14/22 Last Taken 02/13/22] lisinopril 40 mg tablet 40 mg PO QAM 11/04/21 [History Confirmed 02/14/22 Last Taken 02/13/22] pantoprazole 40 mg tablet,delayed release 1 tab PO QAM 11/04/21 [History Confirmed 02/14/22 Last Taken 02/13/22] azithromycin 250 mg tablet 500 mg PO DAILY #2 tab 02/17/22 [Rx Last Taken Unknown] gabapentin 600 mg tablet 1 tab PO HS 02/17/22 [History Confirmed 02/17/22 Last Taken Unknown] COURSE Hospital Course Hospital course: Discharge diagnosis * Acute gastroenteritis secondary to Campylobacter, improved nausea vomiting abdominal pain, continue azithromycin for additional 48 hours * Blood loss anemia status post endoscopy. Esophagitis noted Hemoglobin stable. * ESRD on HD management per nephrology * DM type II CC diet/basal prandial insulin * Hypertension continue amlodipine/NAI inhibitor * Hypothyroidism contraction * History of CVA on aspirin/statin * Neuropathy on gabapentin/amitriptyline * Chronic pain -Per nephrology no changes in pain medications will need to pain seeking behavior * Bilateral BKA Brief hospital course Ms. Gonzalez is a 46-year-old female with a history of hypertension, diabetes mellitus, prior CVA, ESRD on hemodialysis, chronic anemia of ESRD, hypothyroidism, GERD, status post bilateral BKA presented to the emergency department for about 24 hours of abdominal pain, nausea, vomiting coffee ground material, diarrhea with melanotic stools. In the ED, the patient's hemoglobin was approximately at her baseline. Vitals were stable, blood pressure somewhat high as the patient has not taken her blood pressure medications today. Hospital medicine was consulted for admission due to concern of a gastrointestinal bleed. 02/15 Patient continues to complain of abdominal pain, hemoglobin dropped from 10.5- 9.5. CT scan showed nonspecific mild thickening of the wall of the cecum and proximal ascending colon, dilated bile ducts, irregular band of tissue extending across the spleen with the appearance of an old splenic laceration, small nonobstructing left kidney stone. Discussed the patient with gastroenterology for consult. Nephrology consulted for hemodialysis. 02/16. EGD/colonoscopy completed. Gastritis noted. On PPI. Stool consistent with Campylobacter. Start azithromycin. Likely discharge 24 hours after overnight monitoring. Hemodialysis in a.m. Complaining of pain and seeking Dilaudid pushes. 02/17-patient doing a lot better. Intermittent nausea well controlled on Zofran. Discharging to outpatient dialysis. Nephrology recommends no additional changes. Continue additional 2 doses of azithromycin for Campylobacter gastroenteritis Discharge diagnosis: . Time Spent with Patient Time attestation: Total time spent providing and/or coordinating discharge services: EXAM Constitutional Vitals: Temp Pulse Resp BP Pulse Ox 97.3 F 79 14 160/86 95 02/17/22 08:01 02/17/22 06:01 02/17/22 06:01 02/17/22 08:01 02/17/22 06:01 Discharge Data Data Completed and Pending Labs on day of discharge: Labs from last 24 hours 02/17/22 02/16/22 05:58 15:57 Sodium 124 L Potassium 3.7 Chloride 87 L Carbon Dioxide 21 L Anion Gap 16.0 BUN 28 H Creatinine 5.9 H* GFR Calculation 8 Glucose 94 Uric Acid 4.2 Calcium 8.0 L Phosphorus 5.6 H Magnesium 2.0 Total Bilirubin 0.3 Direct Bilirubin < 0.2 GGT 20 AST 18 ALT 10 Alkaline Phosphatase 73 Lactate Dehydrogenase 195 Total Protein 6.3 Albumin 3.1 L Globulin 3.2 Albumin/Globulin Ratio 1.0 Triglycerides 205 H IgA Total Pending Endomysial IgA Ab Titer Pending Endomysial IgA Ab Pending Tiss Transglutamin IgG Pending Tiss Transglutamin IgA Pending Gliadin (Deamidat) IgG Pending Gliadin (Deamidat) IgA Pending Discharge Plan Patient/Caregiver Discharge Instructions Activity: resume usual activities as tolerated Diet: Renal/Consistent Carbs Instructions: Azithromycin (By mouth), Gastritis (GEN), Colonoscopy (GEN), Upper Endoscopy (GEN) Activity Restrictions/Additional Instructions: Continue a Renal, Consistent Carbohydrate diet, resume your normal activities as tolerated. Continue with your current dialysis schedule Azithromycin for additional 48 hours Follow up with your Primary Care Physician as scheduled. Your prescription electronically sent to [facility] in [place]. This discharge packet is provided to you to help keep you informed about your care. We want to ensure you get everything you need when you go home. You will also be receiving a call from us in a few days to follow up with you and see how you are doing since your discharge. This gives us a chance to listen to any concerns you maybe experiencing since you were discharged or any additional needs you may have, as well as providing us feedback on your care experience. We strive to always provide excellent care and thank you for your feedback and for choosing [facility]. Prescriptions: New azithromycin 250 mg Tablet 500 mg PO DAILY Qty: 2 0RF Continued Lantus Solostar U-100 Insulin 100 unit/mL (3 mL) insulin pen 5 unit subcut QAM Qty: 15 3RF ergocalciferol (vitamin D2) 1,250 mcg (50,000 unit) capsule 1,250 mcg PO QWEEK Qty: 8 0RF Rx Instructions: Take once a week for 8 weeks (DME) lancets [OneTouch UltraSoft Lancets] [facility] See Dose Instructions each .ROUTE .MEDSUPPLY Qty: 50 0RF Rx Instructions: As directed (DME) blood sugar diagnostic [OneTouch Verio test strips] strip See Dose Instructions order .ROUTE .MEDSUPPLY Qty: 20 0RF Rx Instructions: As directed (DME) blood-glucose meter [OneTouch Verio Flex meter] [facility] See Dose Instructions each .ROUTE .MEDSUPPLY Qty: 1 0RF Rx Instructions: As directed amlodipine 10 mg tablet 10 mg PO HS 0RF lisinopril 40 mg tablet 40 mg PO QAM 0RF Rx Instructions: New dose atorvastatin 80 mg tablet 1 tab PO HS 0RF levothyroxine 25 mcg tablet 1 tab PO QAM 0RF amitriptyline 25 mg tablet 1 tab PO HS 0RF pantoprazole 40 mg tablet,delayed release (DR/EC) 1 tab PO QAM 0RF aspirin 81 mg tablet,chewable 1 tab PO QDAY 0RF gabapentin 600 mg tablet 1 tab PO HS 0RF Follow Up Plan Follow up with: Scot Salamanca ARNP [Primary Care Provider] - 02/24/22 2:00 pm Dontrell Winters MD [Physician] - (Continue your current schedule in Clinic) Patient Disposition: Home, Self-Care Prognosis: Fair Rehab Potential: Fair I certify that the patient requires SNF services: No Overall status at discharge: patient is progressing back to baseline Discharge Orders: Discharge Order (Routine); Ordered 02/17/22 Ordered By: Raman Reilly
--- NOTE | 2022-02-17 15:07 | Colonoscopy Procedure Note ---
Colonoscopy Procedure Notes Procedure Information Patient information: Note initiated : 02/17/22 at 3:06 pm Service Date: 02/16/22 Patient: Jeanette Gonzalez 46 y/o F admitted on 02/14/22 for N/V/D. Pre-op diagnosis general: Abnormal CT. Diarrhea. Post-op diagnosis general: False positive CT. Colonic polyp. Procedure: Colonoscopy, Polypectomy using Cold Bx Procedure narrative: The procedure, alternatives and risks were discussed with the patient and the patient's questions were answered. With endoscopist-administered intravenous sedation, the Olympus colonoscope was introduced into the rectum and advanced to the cecum. Ileocecal valve was identified, intubated, and several centimeters of the terminal ileum were examined. Ascending colon is entirely normal, indicating she had a false positive CT. Colonic polyp was seen in the transverse colon; polyp was removed with biopsy forceps technique. It was retrieved for histological examination. Rare diverticulosis was seen. Assessment: False positive CT. Colonic polyp.
== END 2022-02-17 10:25 | disposition home or self-care (01) | DRG 371 ==
LOC: ED 15:32 → ICU 22:11
PROVIDERS: ADMIT Internal Medicine; ATTEND Internal Medicine